=== PATIENT | female | born 1970 | race Caucasian/White ===

== ENCOUNTER 2017-11-20 09:59 | Inpatient (IN) | payer BC ==
[2017-11-20] MEDS ORDERED: RX INFO: IV CONTRAST WAS GIVEN 1 EACH MISC MISCELLANE PRN (10:45)
--- NOTE | 2017-11-20 10:54 | ED ---
General Adult HPI - General Chief complaint: Abdominal Pain Stated complaint: bloated Time Seen by Provider: 11/20/17 10:28 Source: patient, RN notes reviewed Mode of arrival: ambulatory Limitations: no limitations - History of Present Illness Initial comments: 47-year-old female presents to the emergency department with a chief complaint of feeling bloated. She states that about 3 weeks ago she had a menstrual cycle to became bloated and swollen. Patient states that her bleeding has subsided but she continues to bloated she continues to have swelling in her legs. She states that she has been going through menopause associates typical for her to have unusual menstrual cycles but she states she is typically not bloated or feeling like this following. She states that she went to urgent care and was sent here due to their concern for deeper worry. Patient denies any nausea vomiting any high fevers. She denies any changes in urination. She denies any other symptoms at this time. Patient denies any recent fever, chills , shortness of breath, chest pain, back pain, nausea vomiting, numbness or tingling, dysuria or hematuria, constipation or diarrhea, headaches or visual changes, or any other current symptoms. - Related Data Home Medications Medication Instructions Recorded Confirmed No Known Home Medications [No 11/20/17 11/20/17 Known Home Medications] Allergies Allergy/AdvReac Type Severity Reaction Status Date / Time No Known Allergies Allergy Verified 11/20/17 10:23 Review of Systems ROS Statement: Those systems with pertinent positive or pertinent negative responses have been documented in the HPI. ROS Other: All systems not noted in ROS Statement are negative. Past Medical History Past Medical History: No Reported History History of Any Multi-Drug Resistant Organisms: None Reported Past Surgical History: Section Additional Past Surgical History / Comment(s): gastric bypass in 2002 Past Psychological History: No Psychological Hx Reported Smoking Status: Current every day smoker Past Alcohol Use History: Daily Past Drug Use History: None Reported General Exam - General Exam Comments Initial Comments: General: The patient is awake and alert, in no distress, and does not appear acutely ill. Eye: Pupils are equal, round and reactive to light, extra-ocular movements are intact; there is normal conjunctiva bilaterally. No signs of icterus. Ears, nose, mouth and throat: There are moist mucous membranes. Neck: The neck is supple, there is no tenderness. Cardiovascular: There is a regular rate and rhythm. No murmur, rub or gallop is appreciated. Respiratory: Lungs are clear to auscultation, respirations are non-labored, breath sounds are equal. No wheezes, stridor, rales, or rhonchi. Gastrointestinal: Soft, non-distended, non-tender abdomen without masses or organomegaly noted. There is no rebound or guarding present. No CVA tenderness. Bowel sounds are unremarkable. Back: There is no tenderness to palpation in the midline. There is no obvious deformity. No rashes noted. Musculoskeletal: Normal ROM, no tenderness, bilateral pedal edema There is no calf tenderness or swelling. Sensation intact. Pulses equal bilaterally 2+. Neurological: CN II-XII intact, There are no obvious motor or sensory deficits. Coordination appears grossly intact. Speech is normal. Skin: Skin is warm and dry and no rashes or lesions are noted. Psychiatric: Cooperative, appropriate mood & affect, normal judgment. Limitations: no limitations Course Vital Signs 11/20/17 11/20/17 11/20/17 10:06 12:08 14:46 Temperature 98.4 F Pulse Rate 95 91 88 Respiratory 20 18 16 Rate Blood Pressure 143/75 128/70 146/75 O2 Sat by Pulse 100 96 100 Oximetry Medical Decision Making - Medical Decision Making 47-year-old female presents for abdominal bloating and lower extremity swelling. At this time patient's lab work is been reviewed. At this time CAT scan and ultrasound have been reviewed as well. Patient does have this pedal edema had exostosis ascites noted. She does have some laboratory abnormalities as well. Due to her results and laboratories with the patient for continued care and testing. Patient is in agreement this plan all questions have been answered. Patient will be admitted at this time. - Lab Data Result diagrams: 11/20/17 11:10 11/20/17 11:10 Lab Results 11/20/17 11/20/17 11/20/17 Range/Units 11:10 11:10 11:10 WBC 14.8 H (3.8-10.6) k/uL RBC 4.21 (3.80-5.40) m/uL Hgb 12.9 (11.4-16.0) gm/dL Hct 40.2 (34.0-46.0) % MCV 95.5 (80.0-100.0) fL MCH 30.8 (25.0-35.0) pg MCHC 32.2 (31.0-37.0) g/dL RDW 17.0 H (11.5-15.5) % Plt Count 430 (150-450) k/uL Neutrophils % 83 % Lymphocytes % 10 % Monocytes % 5 % Eosinophils % 1 % Basophils % 0 % Neutrophils # 12.3 H (1.3-7.7) k/uL Lymphocytes # 1.5 (1.0-4.8) k/uL Monocytes # 0.7 (0-1.0) k/uL Eosinophils # 0.1 (0-0.7) k/uL Basophils # 0.0 (0-0.2) k/uL Anisocytosis Slight PT (9.0-12.0) sec INR (<1.2) APTT (22.0-30.0) sec Sodium 132 L (137-145) mmol/L Potassium 5.3 H (3.5-5.1) mmol/L Chloride 99 (98-107) mmol/L Carbon Dioxide 24 (22-30) mmol/L Anion Gap 9 mmol/L BUN 4 L (7-17) mg/dL Creatinine 0.43 L (0.52-1.04) mg/dL Est GFR (MDRD) Af Amer >60 (>60 ml/min/1.73 sqM) Est GFR (MDRD) Non-Af >60 (>60 ml/min/1.73 sqM) Glucose 122 H (74-99) mg/dL Calcium 8.6 (8.4-10.2) mg/dL Total Bilirubin 1.2 (0.2-1.3) mg/dL AST 223 H (14-36) U/L ALT 60 H (9-52) U/L Alkaline Phosphatase 263 H (38-126) U/L NT-Pro-B Natriuret Pep pg/mL Total Protein 6.5 (6.3-8.2) g/dL Albumin 3.1 L (3.5-5.0) g/dL Amylase 45 (30-110) U/L Lipase 159 (23-300) U/L TSH 9.770 H (0.465-4.680) mIU/L Free T4 1.43 (0.78-2.19) ng/dL Urine Color Urine Appearance (Clear) Urine pH (5.0-8.0) Ur Specific [place] (1.001-1.035) Urine Protein (Negative) Urine Glucose (UA) (Negative) Urine Ketones (Negative) Urine Blood (Negative) Urine Nitrite (Negative) Urine Bilirubin (Negative) Urine Urobilinogen (<2.0) mg/dL Ur Leukocyte Esterase (Negative) Urine RBC (0-5) /hpf Urine WBC (0-5) /hpf Ur Squamous Epith Cells (0-4) /hpf Urine Bacteria (None) /hpf Hyaline Casts (0-2) /lpf Urine Mucus (None) /hpf Blood Type A Negative Blood Type Recheck A Neg Antibody Screen NEGATIVE Spec Expiration Date 11/23/2017230911/20/17 11/20/17 11/20/17 Range/Units 11:10 11:10 11:10 WBC (3.8-10.6) k/uL RBC (3.80-5.40) m/uL Hgb (11.4-16.0) gm/dL Hct (34.0-46.0) % MCV (80.0-100.0) fL MCH (25.0-35.0) pg MCHC (31.0-37.0) g/dL RDW (11.5-15.5) % Plt Count (150-450) k/uL Neutrophils % % Lymphocytes % % Monocytes % % Eosinophils % % Basophils % % Neutrophils # (1.3-7.7) k/uL Lymphocytes # (1.0-4.8) k/uL Monocytes # (0-1.0) k/uL Eosinophils # (0-0.7) k/uL Basophils # (0-0.2) k/uL Anisocytosis PT 12.7 H (9.0-12.0) sec INR 1.3 H (<1.2) APTT 23.3 (22.0-30.0) sec Sodium (137-145) mmol/L Potassium (3.5-5.1) mmol/L Chloride (98-107) mmol/L Carbon Dioxide (22-30) mmol/L Anion Gap mmol/L BUN (7-17) mg/dL Creatinine (0.52-1.04) mg/dL Est GFR (MDRD) Af Amer (>60 ml/min/1.73 sqM) Est GFR (MDRD) Non-Af (>60 ml/min/1.73 sqM) Glucose (74-99) mg/dL Calcium (8.4-10.2) mg/dL Total Bilirubin (0.2-1.3) mg/dL AST (14-36) U/L ALT (9-52) U/L Alkaline Phosphatase (38-126) U/L NT-Pro-B Natriuret Pep 131 pg/mL Total Protein (6.3-8.2) g/dL Albumin (3.5-5.0) g/dL Amylase (30-110) U/L Lipase (23-300) U/L TSH (0.465-4.680) mIU/L Free T4 (0.78-2.19) ng/dL Urine Color Light Brown Urine Appearance Cloudy H (Clear) Urine pH 7.0 (5.0-8.0) Ur Specific [place] 1.019 (1.001-1.035) Urine Protein 1+ H (Negative) Urine Glucose (UA) Negative (Negative) Urine Ketones Negative (Negative) Urine Blood Negative (Negative) Urine Nitrite Negative (Negative) Urine Bilirubin 1+ H (Negative) Urine Urobilinogen 4.0 (<2.0) mg/dL Ur Leukocyte Esterase Trace H (Negative) Urine RBC 1 (0-5) /hpf Urine WBC 3 (0-5) /hpf Ur Squamous Epith Cells 3 (0-4) /hpf Urine Bacteria Rare H (None) /hpf Hyaline Casts 19 H (0-2) /lpf Urine Mucus Occasional H (None) /hpf Blood Type Blood Type Recheck Antibody Screen Spec Expiration Date - Radiology Data Radiology results: report reviewed, image reviewed Disposition Clinical Impression: Leukocytosis, Hyponatremia, Hyperkalemia, Elevated TSH, Ascites, Cholelithiasis , Hepatic steatosis, Pedal edema Disposition: ADMITTED IP TO THIS [facility] Condition: Stable Referrals: None,Stated [Primary Care Provider] - 1-2 days Decision Date: 11/20/17 Decision Time: 15:20
[2017-11-20 11:46] LABS: Anisocytosis Slight; Basophils % (A) 0 %; Eosinophils # (A) 0.1 k/uL (0-0.7); Eosinophils % (A) 1 %; HCT 40.2 % (34.0-46.0); HGB 12.9 gm/dL (11.4-16.0); Lymphocytes # (A) 1.5 k/uL (1.0-4.8); Lymphocytes % (A) 10 %; MCH 30.8 pg (25.0-35.0); MCHC 32.2 g/dL (31.0-37.0); MCV 95.5 fL (80.0-100.0); Mean Platelet Volume 7.7; Monocytes # (A) 0.7 k/uL (0-1.0); Monocytes % (A) 5 %; Neutrophils # (A) 12.3 k/uL (1.3-7.7); Neutrophils % (A) 83 %; Platelet Count 430 k/uL (150-450); RBC 4.21 m/uL (3.80-5.40); WBC 14.8 k/uL (3.8-10.6)
[2017-11-20 11:52] LABS: ALT 60 U/L (9-52); AST 223 U/L (14-36); Albumin 3.1 g/dL (3.5-5.0); Alkaline Phosphatase 263 U/L (38-126); Amylase 45 U/L (30-110); Anion Gap 9 mmol/L; Blood Urea Nitrogen 4 mg/dL (7-17); Calcium 8.6 mg/dL (8.4-10.2); Carbon Dioxide 24 mmol/L (22-30); Chloride 99 mmol/L (98-107); Glucose 122 mg/dL (74-99); Lipase 159 U/L (23-300); Potassium 5.3 mmol/L (3.5-5.1); Sodium 132 mmol/L (137-145); Total Bilirubin 1.2 mg/dL (0.2-1.3); Total Protein 6.5 g/dL (6.3-8.2)
[2017-11-20 11:57] LABS: INR 1.3 (<1.2); Partial Thromboplastin Time 23.3 sec (22.0-30.0); Prothrombin Time 12.7 sec (9.0-12.0)
[2017-11-20 12:00] LABS: Appearance,Urine Cloudy (Clear); Bacteria,Urine Rare /hpf; Bilirubin,Urine 1+ (Negative); Blood,Urine Negative (Negative); Color,Urine Light Brown; Glucose,Urine (UA) Negative (Negative); Hyaline Casts,Urine 19 /lpf (0-2); Ketones,Urine Negative (Negative); Leukocyte Esterase,Urine Trace (Negative); Mucus,Urine Occasional /hpf; Protein,Urine 1+ (Negative); RBC,Urine 1 /hpf (0-5); Specific Gravity,Urine 1.019 (1.001-1.035); Squamous Epithelial Cell,Urine 3 /hpf (0-4); WBC,Urine 3 /hpf (0-5)
--- NOTE | 2017-11-20 12:16 | CT ---
EXAMINATION TYPE: CT abdomen pelvis w con DATE OF EXAM: 11/20/2017 HISTORY: Bloating, pelvic pressure CT DLP: 3617mGycm Automated Exposure Control for Dose Reduction was Utilized. CONTRAST: CT scan of the abdomen and pelvis is performed with IV Contrast, patient injected with 100 mL of Omni paque 300. COMPARISON: None. FINDINGS: LUNG BASES: No significant abnormality is appreciated. LIVER/GB: Hepatic parenchyma is diffusely hypoattenuated, most commonly seen in hepatic steatosis. Th is finding limits evaluation for hepatic masses. No gross evidence of hepatic mass is seen. No intrah epatic biliary ductal dilatation. Gallstones are seen within the gallbladder body on series 3 image 4 3 and series 5 image 30. The gallbladder is contracted. PANCREAS: No significant abnormality is seen. SPLEEN: No splenomegaly. ADRENALS: No nodularity or thickening. 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 Kidneys enhance symmetrically. BOWEL: There has been a partial gastrectomy with atrophy of the [place] gastric rugal folds. No eviden ce of bowel obstruction. No periappendiceal fat stranding. Scattered colonic diverticula are seen wit hout pericolonic fat stranding. Evaluation of the ascending colon is somewhat limited given adjacent ascites. UTERUS/ADNEXA: No gross abnormality seen. LYMPH NODES: No greater than 1cm abdominal or pelvic lymph nodes are appreciated. OSSEOUS STRUCTURES: Mild multilevel degenerative changes of the spine and moderate degenerative zaidi es of the femoral acetabular joints are noted. OTHER: There is a small amount of abdominal pelvic ascites, predominating around the liver margin. In tra-abdominal fat filled hernia has a neck measuring 4.1 cm and is supraumbilical. Periumbilical elisha ia is also seen that is fat filled. Mild anasarca is also noted. IMPRESSION: 1. No evidence of bowel obstruction. Mild abdominal pelvic ascites, predominantly around the liver. 2. Given the patient's history of postmenopausal bleeding gynecologic workup is recommended. 3. Hepatic steatosis appearing at least moderate in degree and cholelithiasis.
--- NOTE | 2017-11-20 12:40 | XR ---
EXAMINATION TYPE: XR chest 2V DATE OF EXAM: 11/20/2017 COMPARISON: NONE HISTORY: Abdominal and chest pain TECHNIQUE: Frontal and lateral views of the chest are obtained. FINDINGS: Eventration of the right hemidiaphragm is incidentally noted. There is no focal air space o pacity, pleural effusion, or pneumothorax seen. The cardiac silhouette size is within normal limits. The osseous structures are intact. Mild multilevel degenerative changes of the thoracic spine are seen. IMPRESSION: No acute cardiopulmonary process.
[2017-11-20 12:59] LABS: T4, Free (Free Thyroxine) 1.43 ng/dL (0.78-2.19)
--- NOTE | 2017-11-20 14:46 | US ---
EXAMINATION TYPE: US gallbladder DATE OF EXAM: 11/20/2017 COMPARISON: CT abdomen and pelvis earlier today CLINICAL HISTORY: Pain. Bloating. Follow up CT. EXAM MEASUREMENTS: Liver Length: 21.7 cm Gallbladder Wall: 0.3 cm CBD: 0.6 cm CHD: 0.4 cm Right Kidney: 10.4 x 6.3 x 4.3 cm Pancreas: Tail obscured by overlying bowel gas. Limited visualization. Appears echogenic. Liver: Appears enlarged and heterogenous. No focal masses or lesions seen. Gallbladder: Two echogenic non-shadowing lesions: 0.4 x 0.4 cm and 0.3 x 0.4 cm. Limited visualiza tion due to bowel gas and body habitus. Evidence for sonographic Cao's sign: neg CBD: wnl exam noted suboptimal secondary to patient's large body habitus CHD: wnl Right Kidney: Suboptimal visualization due to overlying bowel gas. No prominent masses or lesions se en as visualized. Exam noted suboptimal secondary to patient's large body habitus and overlying bowel gas. Pancreas is suboptimally evaluated on images saved but appeared within normal limits on recent CT. Visualized mc er is heterogeneously hyperechoic which correlates with diffuse fatty infiltration on CT. Adjacent as cites is redemonstrated. 2 tiny nonshadowing hyperechoic nonmobile foci favor tiny polyps. No shadowi ng mobile gallstones are seen. Limited images right kidney show no gross hydronephrosis. IMPRESSION: Marked fatty infiltration of liver with surrounding ascites redemonstrated. No shadowing mobile gallstones or ultrasound evidence for acute cholecystitis.
[2017-11-20] MEDS ORDERED: IBUPROFEN 400 MG TAB PO PRN (15:20)
[2017-11-20] MEDS ORDERED: NALOXONE 0.4 MG/ML 1 ML VIAL IV PRN (15:20)
[2017-11-20] MEDS ORDERED: ONDANSETRON 4 MG/2 ML VIAL IVP PRN (15:20)
[2017-11-20] MEDS ORDERED: ACETAMINOPHEN TAB 325 MG TAB PO PRN (15:20)
[2017-11-20] MEDS ORDERED: SODIUM CHLORIDE 0.9% 1,000 ML IV SCH (16:00)
[2017-11-20 16:52] VITALS: BMI 46.0
[2017-11-20 20:16] LABS: Hepatitis B Core IgM Non-Reactive (Non-Reactive)
[2017-11-20] MEDS: HEPARIN SODIUM,PORCINE 5,000 UNIT/ML 1 ML VIAL SQ SCH (20:17)
--- NOTE | 2017-11-20 20:24 | US ---
EXAMINATION TYPE: US abdomen limited DATE OF EXAM: 11/20/2017 COMPARISON: NONE CLINICAL HISTORY: IRREGULAR MENSES. Ascites Mild to moderate amount of ascites visualized. Exam is limited 4 quadrants for ascites evaluation. IMPRESSION: 1. Ascites present predominantly on the right side.
--- NOTE | 2017-11-20 20:40 | US ---
EXAMINATION TYPE: US transvaginal DATE OF EXAM: 11/20/2017 COMPARISON: NONE CLINICAL HISTORY: IRREGULAR MENSES. Pelvic main. Exam limitations due to fluid and overlying bowel ga s. TECHNIQUE: Transvaginal (TV). EXAM MEASUREMENTS: Uterus: 7.3 x 3.6 x 3.0 cm Endometrial Stripe: 0.3 cm 1. Uterus: Anteverted Limited due to free fluid. 2. Endometrium: Limited due to shadowing. 3. Right Ovary: Obscured by overlying bowel gas 4. Left Ovary: Obscured by overlying bowel gas 5. Bilateral Adnexa: appears wnl 6. Posterior cul-de-sac: Free fluid seen. Free fluid seen in cul-de-sac. IMPRESSION: 1. Fairly large amount of free fluid within the pelvis. 2. Nonvisualization of the ovaries.
--- NOTE | 2017-11-21 00:03 | P.HPIM ---
History of Present Illness H&P Date: 11/20/17 Chief Complaint: Abdominal distention Patient is a 47-year-old female with a history of alcohol use an daily basis presents to the emergency department with a chief complaint of feeling bloated. She states that about 3 weeks ago she had a menstrual cycle since then she has abdominal bloated and swollen and leg swelling. Patient states that her bleeding has subsided but she continues to bloated she continues to have swelling in her legs. She states that she has been going through menopause associates typical for her to have unusual menstrual cycles but she states she is typically not bloated or feeling like this following. She states that she went to urgent care and was sent here due to their concern for deeper worry. Patient denies any nausea vomiting any high fevers. She denies any changes in urination. She denies any other symptoms at this time. Patient denies any recent fever, chills, shortness of breath, chest pain, back pain, nausea vomiting, numbness or tingling, dysuria or hematuria, constipation or diarrhea, headaches or visual changes, or any other current symptoms. CT of the abdomen showed no bowel obstruction. Mild pelvic ascites, predominantly around the liver. Hepatic steatosis and gallstones Ultrasound abdomen showed ascites mainly right side Chest x-ray showed no acute cardio pulmonary process Transvaginal ultrasound was ordered. SCOREBOARD OPERATOR was consulted. AST 223 ALTs 60 TSH 9.77 free T4 1.4, bilirubin 1.2 Patient is a poor historian and is not willing to provide good history. Review of Systems Constitutional: Patient denies any fever or chills . No generalized weakness or weight loss. Abdomen: No nausea vomiting or abdominal pain. Abdominal distention and leg swelling Cardiovascular: Patient denies any chest pain or short of breath no palpitations. Respiratory: patient denied any cough is from production. No shortness of breath Neurologic: Patient denied any numbness or tingling headache. Musculoskeletal: Patient denies any complaints of joint swelling or deformity. Skin: Negative Psychiatric: Negative Endocrine: No heat or cold intolerance. No recent weight gain. Genitourinary: No dysuria or hematuria. All other 14 point ROS negative except the above Past Medical History Past Medical History: No Reported History History of Any Multi-Drug Resistant Organisms: None Reported Past Surgical History: Section Additional Past Surgical History / Comment(s): gastric bypass in 2002 Additional Past Anesthesia/Blood Transfusion Reaction / Comment(s): never had blood transfusion Past Psychological History: No Psychological Hx Reported Smoking Status: Current every day smoker Past Alcohol Use History: Daily Past Drug Use History: None Reported - Past Family History Mother History Unknown: Yes Family Medical History: Congestive Heart Failure (CHF), COPD Father History Unknown: Yes Family Medical History: Diabetes Mellitus Medications and Allergies Home Medications Medication Instructions Recorded Confirmed Type No Known Home Medications [No 11/20/17 11/20/17 History Known Home Medications] Allergies Allergy/AdvReac Type Severity Reaction Status Date / Time No Known Allergies Allergy Verified 11/20/17 10:23 Physical Exam Vitals: Vital Signs Temp Pulse Pulse Resp BP BP Pulse Ox 11/20/17 16:53 99.2 F 93 20 138/72 96 11/20/17 14:46 88 16 146/75 100 11/20/17 12:08 91 18 128/70 96 11/20/17 10:06 98.4 F 95 20 143/75 100 Intake and Output 11/20/17 11/20/17 11/20/17 06:59 14:59 22:59 Other: Weight 136.985 kg 137.4 kg Patient Weight 11/21/17 06:59 Weight 137.4 kg PHYSICAL EXAMINATION: Patient is lying in the bed comfortably, no acute distress, awake alert and oriented. Morbid obesity.. HEENT: Normocephalic. Neck is supple. Pupils reactive. Nostrils clear. Oral cavity is moist. Ears reveal no drainage. Neck reveals no JVD, carotid bruits, or thyromegaly. CHEST EXAMINATION: Trachea is central. Symmetrical expansion. Bibasilar diminished breath sounds CARDIAC: Normal S1, S2 with no gallops. No murmurs ABDOMEN: Soft. Bowel sounds normal. Distended. No fluid thrill noted .No organomegaly. No abdominal bruits. Extremities: 2+ bilateral pedal pitting edema. No clubbing or cyanosis Neurologically awake, alert, oriented x3 with well-coordinated movements. No focal deficits noted Skin: No rash or skin lesions. Psychiatric: Cooperative. Nonsuicidal Musculoskeletal: No joint swelling or deformity. Normal range of motion. Results CBC & Chem 7: 11/20/17 11:10 11/20/17 11:10 Labs: Abnormal Lab Results - Last 24 Hours (Table) 11/20/17 11/20/17 11/20/17 Range/Units 11:10 11:10 11:10 WBC 14.8 H (3.8-10.6) k/uL RDW 17.0 H (11.5-15.5) % Neutrophils # 12.3 H (1.3-7.7) k/uL PT 12.7 H (9.0-12.0) sec INR 1.3 H (<1.2) Sodium 132 L (137-145) mmol/L Potassium 5.3 H (3.5-5.1) mmol/L BUN 4 L (7-17) mg/dL Creatinine 0.43 L (0.52-1.04) mg/dL Glucose 122 H (74-99) mg/dL AST 223 H (14-36) U/L ALT 60 H (9-52) U/L Alkaline Phosphatase 263 H (38-126) U/L Albumin 3.1 L (3.5-5.0) g/dL TSH 9.770 H (0.465-4.680) mIU/L Urine Appearance (Clear) Urine Protein (Negative) Urine Bilirubin (Negative) Ur Leukocyte Esterase (Negative) Urine Bacteria (None) /hpf Hyaline Casts (0-2) /lpf Urine Mucus (None) /hpf 11/20/17 Range/Units 11:10 WBC (3.8-10.6) k/uL RDW (11.5-15.5) % Neutrophils # (1.3-7.7) k/uL PT (9.0-12.0) sec INR (<1.2) Sodium (137-145) mmol/L Potassium (3.5-5.1) mmol/L BUN (7-17) mg/dL Creatinine (0.52-1.04) mg/dL Glucose (74-99) mg/dL AST (14-36) U/L ALT (9-52) U/L Alkaline Phosphatase (38-126) U/L Albumin (3.5-5.0) g/dL TSH (0.465-4.680) mIU/L Urine Appearance Cloudy H (Clear) Urine Protein 1+ H (Negative) Urine Bilirubin 1+ H (Negative) Ur Leukocyte Esterase Trace H (Negative) Urine Bacteria Rare H (None) /hpf Hyaline Casts 19 H (0-2) /lpf Urine Mucus Occasional H (None) /hpf Microbiology - Last 24 Hours (Table) 11/20/17 11:10 Urine Culture - Preliminary Urine,Voided Thrombosis Risk Factor Assmnt - DVT/VTE Prophylaxis DVT/VTE Prophylaxis: Pharmacologic Prophylaxis ordered - Choose All That Apply Each Factor Represents 1 point: Age 41-60 years, Obesity (BMI >25), Swollen legs (current), Varicose veins Other Risk Factors: No Other congenital or acquired thrombophilia - If yes, enter type in comment: No Thrombosis Risk Factor Assessment Total Risk Factor Score: 4 Thrombosis Risk Factor Assessment Level: Moderate Risk Assessment and Plan Assessment: Abdominal distention with ascites Irregular menstrual bleed. Alcohol abuse on daily basis Hepatic steatosis due to alcohol abuse Mild hyperkalemia Hypovolemic hyponatremia Elevated TSH 9.7 but free T4 are within normal limits Elevated AST and ALTs and alk phos with possible alcoholic hepatitis Mild coagulopathy due to alcohol abuse INR 1.3 Morbid obesity with BMI 46.1 Mild leukocytosis 14.9 with no signs of infection DVT prophylaxis Plan: Patient was given gentle hydration. Ultrasound of abdomen and transvaginal ultrasound was ordered. We will follow up CBC and CMP tomorrow. OBGYN was consulted. Patient will be monitored for alcohol withdrawal symptoms. Counseled for alcohol abuse. Further recommendations based on the clinical course. Time with Patient: Greater than 30
[2017-11-21 06:47] LABS: Anisocytosis Slight; Basophils # (A) 0.1 k/uL (0-0.2); Basophils % (A) 1 %; Eosinophils # (A) 0.2 k/uL (0-0.7); Eosinophils % (A) 2 %; HCT 35.5 % (34.0-46.0); HGB 11.4 gm/dL (11.4-16.0); Lymphocytes # (A) 1.4 k/uL (1.0-4.8); Lymphocytes % (A) 13 %; MCHC 32.1 g/dL (31.0-37.0); MCV 96.5 fL (80.0-100.0); Macrocytosis Slight; Monocytes # (A) 0.5 k/uL (0-1.0); Monocytes % (A) 5 %; Neutrophils # (A) 8.7 k/uL (1.3-7.7); Neutrophils % (A) 79 %; Platelet Count 356 k/uL (150-450); RBC 3.68 m/uL (3.80-5.40); RDW 17.1 % (11.5-15.5)
[2017-11-21 07:09] LABS: ALT 51 U/L (9-52); AST 175 U/L (14-36); Albumin 2.5 g/dL (3.5-5.0); Alkaline Phosphatase 206 U/L (38-126); Anion Gap 7 mmol/L; Blood Urea Nitrogen 4 mg/dL (7-17); Calcium 8.1 mg/dL (8.4-10.2); Carbon Dioxide 27 mmol/L (22-30); Chloride 101 mmol/L (98-107); Glucose 91 mg/dL (74-99); Potassium 4.4 mmol/L (3.5-5.1); Sodium 135 mmol/L (137-145); Total Bilirubin 0.9 mg/dL (0.2-1.3); Total Protein 5.4 g/dL (6.3-8.2)
[2017-11-21] MEDS: HEPARIN SODIUM,PORCINE 5,000 UNIT/ML 1 ML VIAL SQ SCH (08:21)
[2017-11-21] MEDS ORDERED: FUROSEMIDE 10 MG/ML 4 ML VIAL IV SCH (09:00)
--- NOTE | 2017-11-21 11:25 | P.CONS ---
History of Present Illness - Reason for Consult Consult date: 11/21/17 Ascites Requesting physician: Andry Diehl - History of Present Illness 47-year-old female no PCP with a history of morbid obesity BMI 46, status post Willie-en-Y gastric bypass 2002, daily alcohol intake 5-6 glasses of wine for more than 15 years, nicotine cigarette dependency. Patient presented with acute abdominal discomfort and bloatedness/leg edema that started after her menstrual cycle about 3 weeks ago. Leg edema has resolved but her abdominal bloatedness has persisted. She drinks a few glasses of wine prior to admission. Admission INR 1.3. Hemoglobin 12.9. White count 14.8 improved presently 11. Platelets 430. Total bilirubin 1.2. AST 223. ALT 60. Alkaline phosphatase 263. BUN 4. Creatinine 0.4. Hepatitis B surface antigen and core IgM antibody nonreactive. Hepatitis C IgG antibody nonreactive. No history of known liver diseases. No history of hepatitis. No history of autoimmune disorders. No history of intravenous drug abuse. No changes in medications. CT abdomen and pelvis hepatic parenchyma diffusely hypoattenuated mostly commonly seen in hepatic steatosis. No gross evidence of hepatic mass. No intrahepatic biliary ductal dilatation. Cholelithiasis. Gallbladder contracted. No splenomegaly. Evidence of partial gastrectomy no evidence of bowel obstruction. Scattered colonic diverticula. Small amount of abdominal pelvic ascites predominantly around the liver margin. Periumbilical hernia. Ultrasound abdomen ascites present predominately on the right side. Transvaginal ultrasound fairly large amount of free fluid within the pelvis. Nonvisualization of the ovaries. Review of Systems Constitutional: Denies fever, chills, sweats, weight gain, or loss. HEENT: Negative for migraines, blurred vision or loss, earaches, drainage, tinnitus, oral mucosal lesions, dysphagia, or odynophagia. CARDIAC: Negative for chest pain, arrhythmias, or palpitation. RESPIRATORY: Nicotine cigarette dependency. Negative for shortness of breath, hemoptysis, cough, or sputum production. GI: See HPI for pertinent findings. : Negative for hematuria, urgency, frequency, polyuria, or dysuria. GYNc: Denies possibility of . Negative vaginal discharge. MUSCULOSKELETAL: Negative for muscle aches, swelling, arthritis, and arthralgias. NEUROLOGIC: Negative for stroke or TIA. ENDOCRINE: Negative for thyroid problems. SKIN: Negative for rash or itching. PSYCHIATRIC: Negative history for depression and anxiety Past Medical History Past Medical History: No Reported History History of Any Multi-Drug Resistant Organisms: None Reported Past Surgical History: Section Additional Past Surgical History / Comment(s): gastric bypass in 2002 Additional Past Anesthesia/Blood Transfusion Reaction / Comm: never had blood transfusion Past Psychological History: No Psychological Hx Reported Smoking Status: Current every day smoker Past Alcohol Use History: Daily Past Drug Use History: None Reported - Past Family History Mother History Unknown: Yes Family Medical History: Congestive Heart Failure (CHF), COPD Father History Unknown: Yes Family Medical History: Diabetes Mellitus Medications and Allergies Home Medications Medication Instructions Recorded Confirmed Type No Known Home Medications [No 11/20/17 11/20/17 History Known Home Medications] Allergies Allergy/AdvReac Type Severity Reaction Status Date / Time No Known Allergies Allergy Verified 11/20/17 10:23 Physical Exam Vitals: Vital Signs Temp Pulse Pulse Resp BP BP Pulse Ox 11/21/17 08:04 99.5 F 87 20 124/81 97 11/21/17 02:30 99.0 F 86 18 128/70 98 11/20/17 22:25 99.1 F 11/20/17 20:15 98.1 F 79 22 122/76 98 11/20/17 18:44 99.4 F 11/20/17 16:53 99.2 F 93 20 138/72 96 11/20/17 14:46 88 16 146/75 100 11/20/17 12:08 91 18 128/70 96 Intake and Output 11/20/17 11/21/17 11/21/17 22:59 06:59 14:59 Intake Total 540 200 Output Total 300 1000 Balance 540 -300 -800 Intake: Oral 540 200 Output: Urine 300 1000 Other: Voiding Method Toilet # Voids 1 Weight 137.4 kg 137.2 kg Patient Weight 11/22/17 06:59 Weight 137.2 kg General appearance: The patient is alert, oriented, in no acute distress. HET: Head is normocephalic and atraumatic. Pupils are equal and reactive. Oropharynx is clear without lesions. Neck: Supple without lymphadenopathy. Trachea midline. Heart: S1 S2. Regular rate and rhythm. Lungs: No crackles or wheezes are heard. Abdomen: Soft, mild tenderness to the upper abdomen with some mild bloatedness difficult to ascertain ascites secondary to large abdominal habitus, nondistended with bowel sounds. No peritoneal signs. No palpable organomegaly or masses. Extremities: Normal skin color and turgor. No cyanosis, rash, ulceration, clubbing, or edema. Radial and pedal pulses are 2/4 bilaterally. Neurological: No focal deficits. Strength and sensation are grossly intact. Results CBC & Chem 7: 11/21/17 06:22 11/21/17 06:22 Labs: Abnormal Lab Results - Last 24 Hours (Table) 11/20/17 11/20/17 11/20/17 Range/Units 11:10 11:10 11:10 WBC 14.8 H (3.8-10.6) k/uL RBC (3.80-5.40) m/uL RDW 17.0 H (11.5-15.5) % Neutrophils # 12.3 H (1.3-7.7) k/uL PT 12.7 H (9.0-12.0) sec INR 1.3 H (<1.2) Sodium 132 L (137-145) mmol/L Potassium 5.3 H (3.5-5.1) mmol/L BUN 4 L (7-17) mg/dL Creatinine 0.43 L (0.52-1.04) mg/dL Glucose 122 H (74-99) mg/dL Calcium (8.4-10.2) mg/dL AST 223 H (14-36) U/L ALT 60 H (9-52) U/L Alkaline Phosphatase 263 H (38-126) U/L Total Protein (6.3-8.2) g/dL Albumin 3.1 L (3.5-5.0) g/dL TSH 9.770 H (0.465-4.680) mIU/L Urine Appearance (Clear) Urine Protein (Negative) Urine Bilirubin (Negative) Ur Leukocyte Esterase (Negative) Urine Bacteria (None) /hpf Hyaline Casts (0-2) /lpf Urine Mucus (None) /hpf 11/20/17 11/21/17 11/21/17 Range/Units 11:10 06:22 06:22 WBC 11.0 H (3.8-10.6) k/uL RBC 3.68 L (3.80-5.40) m/uL RDW 17.1 H (11.5-15.5) % Neutrophils # 8.7 H (1.3-7.7) k/uL PT (9.0-12.0) sec INR (<1.2) Sodium 135 L (137-145) mmol/L Potassium (3.5-5.1) mmol/L BUN 4 L (7-17) mg/dL Creatinine 0.48 L (0.52-1.04) mg/dL Glucose (74-99) mg/dL Calcium 8.1 L (8.4-10.2) mg/dL AST 175 H (14-36) U/L ALT (9-52) U/L Alkaline Phosphatase 206 H (38-126) U/L Total Protein 5.4 L (6.3-8.2) g/dL Albumin 2.5 L (3.5-5.0) g/dL TSH (0.465-4.680) mIU/L Urine Appearance Cloudy H (Clear) Urine Protein 1+ H (Negative) Urine Bilirubin 1+ H (Negative) Ur Leukocyte Esterase Trace H (Negative) Urine Bacteria Rare H (None) /hpf Hyaline Casts 19 H (0-2) /lpf Urine Mucus Occasional H (None) /hpf Microbiology - Last 24 Hours (Table) 11/20/17 11:10 Urine Culture - Final Urine,Voided CT scan - abdomen: report reviewed (Dr. Devine) US - abdomen: report reviewed (Dr. Devine) Assessment and Plan (1) Ascites Narrative/Plan: 47-year-old female presents with persistent abdominal discomfort pain with leukocytosis, bloatedness 3 weeks with radiographic imaging reporting new onset of ascites and elevated liver enzymes. Suspect underlying ascites secondary to alcohol liver disease alcohol hepatitis with superimposed hepatic steatosis however underlying chronic liver disease possible underlying gynecological pathology cannot be entirely excluded. Current Visit: Yes Status: Acute Code(s): R18.8 - OTHER ASCITES SNOMED Code(s): 166816330 (2) Abdominal pain Current Visit: Yes Status: Acute Code(s): R10.9 - UNSPECIFIED ABDOMINAL PAIN SNOMED Code(s): 09607489 (3) Cholelithiasis Current Visit: Yes Status: Chronic Code(s): K80.20 - CALCULUS OF GALLBLADDER W/O CHOLECYSTITIS W/O OBSTRUCTION SNOMED Code(s): 687248179 (4) Hepatic steatosis Current Visit: Yes Status: Chronic Code(s): K76.0 - FATTY (CHANGE OF) LIVER , NOT ELSEWHERE CLASSIFIED SNOMED Code(s): 901592391 (5) ETOH abuse Current Visit: Yes Status: Chronic Code(s): F10.10 - ALCOHOL ABUSE, UNCOMPLICATED SNOMED Code(s): 67869984 (6) Morbid obesity with BMI of 45.0-49.9, adult Current Visit: Yes Status: Chronic Code(s): E66.01 - MORBID (SEVERE) OBESITY DUE TO EXCESS CALORIES; Z68.42 - BODY MASS INDEX (BMI) 45.0-49.9, ADULT SNOMED Code(s): 357560367 (7) Coagulopathy Current Visit: Yes Status: Acute Code(s): D68.9 - COAGULATION DEFECT, UNSPECIFIED SNOMED Code(s): 40846900 (8) History of Willie-en-Y gastric bypass Current Visit: Yes Status: Resolved Code(s): Z98.84 - BARIATRIC SURGERY STATUS SNOMED Code(s): 269090388 (9) Alcoholic hepatitis with ascites Current Visit: Yes Status: Acute Code(s): K70.11 - ALCOHOLIC HEPATITIS WITH ASCITES SNOMED Code(s): 892180469 (10) Leukocytosis Narrative/Plan: Suspect secondary to alcohol hepatitis; improved white count 11. Current Visit: Yes Status: Acute Code(s): D72.829 - ELEVATED WHITE BLOOD CELL COUNT, UNSPECIFIED SNOMED Code(s): 253944184 Plan: 1. Alcohol abstinence was strongly advised. 2. Full serologic workup for underlying chronic liver disease. 3. Will discuss case with interventional radiologist review abdominal films to see if patient is a candidate for diagnostic/therapeutic paracentesis if so we' ll send full analysis of ascitic fluid assess for portal hypertension/SBP. 3. Low-salt diet. Receiving diuretics. Gynecology consultation. 4. Return to office 7-10 days for reevaluation. Thank you for this kind referral and the opportunity to participate in the care of your patient. This consultation was discussed with Dr. Devine. The impression and plan of care have been directed as dictated.
[2017-11-21] MEDS ORDERED: THIAMINE 100 MG TAB PO SCH (12:00)
[2017-11-21] MEDS ORDERED: MULTIVITAMINS, THERA 1 EACH TAB PO SCH (12:00)
[2017-11-21 13:10] VITALS: BP 139/75; PULSE 85; RESP 18; TEMP 98.4
--- NOTE | 2017-11-21 15:05 | P.OBCN ---
History of Present Illness Consult date: 11/21/17 Reason for consult: other (irregular menses) Chief complaint: abdominal bloating History of present illness: This is a 47yo female that presented to the ED with c/o increasing abdominal pain, bloating. she admits to drinking 3-4 glasses of wine a night, and has been under alot of stress. she admits this is a coping mechanism to deal witht he stress of life. on admission CT scan,+ ascites. normal pelvic anatomy was visualized and US was limited due to increased amount of free fluid. she notes regular BM that are normal for her, no urinary complaints. menses are irregular and she notes she will skip multiple months at a time. + hot flashes over the last year. "its not my uterus causing the problems" Review of Systems Constitutional: Reports chills, Reports fever Cardiovascular: Denies chest pain Respiratory: Denies cough Gastrointestinal: Denies constipation, Denies diarrhea Genitourinary: Reports hot flashes, Denies stress incontinence, Denies urge incontinence Past Medical History Past Medical History: No Reported History History of Any Multi-Drug Resistant Organisms: None Reported Past Surgical History: Section Additional Past Surgical History / Comment(s): gastric bypass in 2002 Additional Past Anesthesia/Blood Transfusion Reaction / Comm: never had blood transfusion Past Psychological History: No Psychological Hx Reported Smoking Status: Current every day smoker Past Alcohol Use History: Daily Past Drug Use History: None Reported - Past Family History Mother History Unknown: Yes Family Medical History: Congestive Heart Failure (CHF), COPD Father History Unknown: Yes Family Medical History: Diabetes Mellitus Medications and Allergies Home Medications Medication Instructions Recorded Confirmed Type No Known Home Medications [No 11/20/17 11/20/17 History Known Home Medications] Allergies Allergy/AdvReac Type Severity Reaction Status Date / Time No Known Allergies Allergy Verified 11/20/17 10:23 Exam Osteopathic Statement: *. No significant issues noted on an osteopathic structural exam other than those noted in the History and Physical/Consult. - Vital Signs Vital signs: Vital Signs Temp Pulse Resp BP Pulse Ox 11/21/17 12:16 98.4 F 85 18 139/75 95 11/21/17 08:04 99.5 F 87 20 124/81 97 11/21/17 02:30 99.0 F 86 18 128/70 98 11/20/17 22:25 99.1 F 11/20/17 20:15 98.1 F 79 22 122/76 98 11/20/17 18:44 99.4 F 11/20/17 16:53 99.2 F 93 20 138/72 96 Intake and Output 11/20/17 11/21/17 11/21/17 22:59 06:59 14:59 Intake Total 540 1700 Output Total 300 1400 Balance 540 -300 300 Intake: Oral 540 1700 Output: Urine 300 1400 Other: Voiding Method Toilet # Voids 1 Weight 137.4 kg 137.2 kg Patient Weight 11/22/17 06:59 Weight 137.2 kg - OBG Physical Exam Abdomen: diffusely distended, some tenderness to palpation Uterus: declines exam Results Result Diagrams: 11/21/17 06:22 11/21/17 06:22 Abnormal Lab Results - Last 24 Hours (Table) 11/21/17 11/21/17 Range/Units 06:22 06:22 WBC 11.0 H (3.8-10.6) k/uL RBC 3.68 L (3.80-5.40) m/uL RDW 17.1 H (11.5-15.5) % Neutrophils # 8.7 H (1.3-7.7) k/uL Sodium 135 L (137-145) mmol/L BUN 4 L (7-17) mg/dL Creatinine 0.48 L (0.52-1.04) mg/dL Calcium 8.1 L (8.4-10.2) mg/dL AST 175 H (14-36) U/L Alkaline Phosphatase 206 H (38-126) U/L Total Protein 5.4 L (6.3-8.2) g/dL Albumin 2.5 L (3.5-5.0) g/dL Microbiology - Last 24 Hours (Table) 11/20/17 11:10 Urine Culture - Final Urine,Voided Assessment and Plan (1) Irregular menses Narrative/Plan: discussed menstrual irregularities are most likely due to age and perimenopause. she is tearful and frustrated with her dx and states she doesnt understand her follow up instruction in regard to her ascites. I did ask her RN to review hospitalist and gi plans prior to d/c. she is a known pt of Dr Shrestha and will follow up for annual. thank you for the kind consult Current Visit: Yes Status: Acute Code(s): N92.6 - IRREGULAR MENSTRUATION, UNSPECIFIED SNOMED Code(s): 12431303 (2) Abdominal pain Current Visit: Yes Status: Acute Code(s): R10.9 - UNSPECIFIED ABDOMINAL PAIN SNOMED Code(s): 26206225 (3) Ascites Current Visit: Yes Status: Acute Code(s): R18.8 - OTHER ASCITES SNOMED Code(s): 383145388 (4) Leukocytosis Current Visit: Yes Status: Acute Code(s): D72.829 - ELEVATED WHITE BLOOD CELL COUNT, UNSPECIFIED SNOMED Code(s): 760116970 (5) ETOH abuse Current Visit: Yes Status: Chronic Code(s): F10.10 - ALCOHOL ABUSE, UNCOMPLICATED SNOMED Code(s): 04687184
--- NOTE | 2017-11-21 22:46 | P.DS ---
Providers Date of admission: 11/20/17 15:05 Expected date of discharge: 11/21/17 Attending physician: Andry Diehl Consults: 11/20/17 15:21 Consult Physician Routine Consulting Provider: Glen Lux Consult Reason/Comments: vaginal bleeding Do you want consulting provider notified?: Yes 11/20/17 15:22 Consult Physician Routine Consulting Provider: Kishan Devine Consult Reason/Comments: ascites Do you want consulting provider notified?: Yes Primary care physician: Stated None Hospital Course: Discharge diagnosis Abdominal distention with ascites. Not significant enough to be drained. Irregular menstrual bleed. Alcohol abuse on daily basis Hepatic steatosis due to alcohol abuse Mild hyperkalemia Hypovolemic hyponatremia New Mild hypothyroidism with Elevated TSH 9.7 but free T4 are within normal limits Elevated AST and ALTs and alk phos with possible alcoholic hepatitis Mild coagulopathy due to alcohol abuse INR 1.3 Morbid obesity with BMI 46.1 Mild leukocytosis 14.9 with no signs of infection DVT prophylaxis Hospital course Patient is a 47-year-old female with a history of alcohol use an daily basis presents to the emergency department with a chief complaint of feeling bloated. She states that about 3 weeks ago she had a menstrual cycle since then she has abdominal bloated and swollen and leg swelling. Patient states that her bleeding has subsided but she continues to bloated she continues to have swelling in her legs. She states that she has been going through menopause associates typical for her to have unusual menstrual cycles but she states she is typically not bloated or feeling like this following. She states that she went to urgent care and was sent here due to their concern for deeper worry. Patient denies any nausea vomiting any high fevers. She denies any changes in urination. She denies any other symptoms at this time. Patient denies any recent fever, chills, shortness of breath, chest pain, back pain, nausea vomiting, numbness or tingling, dysuria or hematuria, constipation or diarrhea, headaches or visual changes, or any other current symptoms. CT of the abdomen showed no bowel obstruction. Mild pelvic ascites, predominantly around the liver. Hepatic steatosis and gallstones Ultrasound abdomen showed ascites mainly right side Chest x-ray showed no acute cardio pulmonary process Transvaginal ultrasound was ordered. SCRAP SORTER was consulted. AST 223 ALTs 60 TSH 9.77 free T4 1.4, bilirubin 1.2 Patient is a poor historian and is not willing to provide good history. On 11/21/2017 Patient denied any complaints of nausea or vomiting. Leg swelling is much improved today. Otherwise patient had ultrasound of abdomen which did not find any significant ascites to be drained. Liver enzymes are trending down. Improved electrolyte abnormalities. Patient was counseled extensively for alcohol cessation and follow-up with GI clinic as an outpatient. Patient was recommended to follow with primary care physician as well. Otherwise patient wishes to be discharged home today. Patient was strongly instructed not to drink alcohol. Discharge instructions were discussed with the patient in detail and follow-up information was provided to the patient. Patient was started on low-dose levothyroxine and recommended to follow with primary care physician in 4-6 for repeat TSH and free T4 levels. Patient verbalizes the understanding and is stable to be discharged home.. Discharge physical examination Patient is lying in the bed comfortably, no acute distress, awake alert and oriented. Morbid obesity.. HEENT: Normocephalic. Neck is supple. Pupils reactive. Nostrils clear. Oral cavity is moist. Ears reveal no drainage. Neck reveals no JVD, carotid bruits, or thyromegaly. CHEST EXAMINATION: Trachea is central. Symmetrical expansion. Clear to auscultation bilaterally CARDIAC: Normal S1, S2 with no gallops. No murmurs ABDOMEN: Soft. Bowel sounds normal. Distended. No fluid thrill noted .No organomegaly. No abdominal bruits. Extremities: No edema. No clubbing or cyanosis Neurologically awake, alert, oriented x3 with well-coordinated movements. No focal deficits noted Skin: No rash or skin lesions. Psychiatric: Cooperative. Nonsuicidal Musculoskeletal: No joint swelling or deformity. Normal range of motion. Total time taken greater than 35 minutes including 18 minutes for counseling and coordination of care. Patient Condition at Discharge: Stable Plan - Discharge Summary New Discharge Prescriptions: New Multivitamins, Thera [Multivitamin (formulary)] 1 each PO DAILY@1200 #30 tab Thiamine [Vitamin B-1] 100 mg PO DAILY@1200 #30 tab Levothyroxine Sodium [Levoxyl] 25 mcg PO DAILY #30 tab Discharge Medication List Levothyroxine Sodium [Levoxyl] 25 mcg PO DAILY #30 tab 11/21/17 [Rx] Multivitamins, Thera [Multivitamin (formulary)] 1 each PO DAILY@1200 #30 tab 03/05 [Rx] Thiamine [Vitamin B-1] 100 mg PO DAILY@1200 #30 tab 11/21/17 [Rx] Follow up Appointment(s)/Referral(s): Kishan Devine MD [STAFF PHYSICIAN] - 12/11/17 3:15 pm None,Stated [Primary Care Provider] - 1-2 days Activity/Diet/Wound Care/Special Instructions: Low salt Diet, No alcohol use, follow up with heat treater apprentice as scheduled, sooner if problems or concerns. FOLLOW UP WITH A PRIMARY CARE NEXT WEEK FOR EVALUATION OF THYROID AND PHYSICAL FOLLOW UP WITH DR LUX FOR YEARLY PHYSICAL Discharge Disposition: HOME SELF-CARE
[2017-11-22 01:45] LABS: Alpha Fetoprotein, Tumor Mkr 1.6 ng/mL (0.0-7.9)
[2017-11-22 02:04] LABS: Hepatitis A Antibody IgM Non-Reactive (Non-Reactive)
[2017-11-22 11:49] LABS: Ceruloplasmin 32.9 mg/dL (20.0-60.0)
[2017-11-23 12:39] LABS: Albumin 2.11 g/dL (3.80-4.90); Gamma Globulin 1.01 g/dL (0.70-1.50); Protein, Total 5.2 g/dL (6.2-8.2)
== END 2017-11-21 16:07 | disposition home or self-care (01) | DRG 433 ==
LOC: EC 09:59 → 6PED 15:05
PROVIDERS: ADMIT Internal Medicine; ATTEND Internal Medicine
DX: K70.11 Alcoholic hepatitis with ascites (principal); E87.1 Hypo-osmolality and hyponatremia; D68.4 Acquired coagulation factor deficiency; E66.01 Morbid (severe) obesity due to excess calories; E03.9 Hypothyroidism, unspecified; E87.5 Hyperkalemia; F10.10 Alcohol abuse, uncomplicated; F17.200 Nicotine dependence, unspecified, uncomplicated; K42.9 Umbilical hernia without obstruction or gangrene; K57.30 Diverticulosis of large intestine without perforation or abscess without bleeding; K76.0 Fatty (change of) liver, not elsewhere classified; K80.20 Calculus of gallbladder without cholecystitis without obstruction; N92.6 Irregular menstruation, unspecified; N95.1 Menopausal and female climacteric states; Z82.49 Family history of ischemic heart disease and other diseases of the circulatory system; Z82.5 Family history of asthma and other chronic lower respiratory diseases; Z83.3 Family history of diabetes mellitus; Z90.3 Acquired absence of stomach [part of]; Z98.84 Bariatric surgery status; Z71.41 Alcohol abuse counseling and surveillance of alcoholic
CPT/HCPCS: 36415; 71046; 74177; 76705; 76830; 80053; 80074; 81001; 82105; 82150; 82390; 83605; 83690; 83880; 84165; 84439; 84443; 85025; 85610; 85730; 86038; 86709; 86850; 86900; 86901; 87086; 99285

== ENCOUNTER 2017-12-13 11:51 | Day surgery (SDC) | payer BC ==
[2017-12-13 12:34] LABS: INR 1.6 (<1.2); Prothrombin Time 14.8 sec (9.0-12.0)
[2017-12-13 12:35] LABS: Mean Platelet Volume 7.8; Platelet Count 386 k/uL (150-450)
[2017-12-13 12:54] VITALS: TEMP 98
[2017-12-13 13:17] LABS: Albumin 2.8 g/dL (3.5-5.0); Calcium 8.3 mg/dL (8.4-10.2); Total Bilirubin 2.4 mg/dL (0.2-1.3); Total Protein 6.7 g/dL (6.3-8.2)
[2017-12-13 13:21] LABS: Potassium 5.2 mmol/L (3.5-5.1)
[2017-12-13] MEDS: ALBUMIN HUMAN 25% 50 ML in EMPTY BAG 1 BAG IVPB SCH ×2 (15:24→15:37)
[2017-12-13 15:27] VITALS: RESP 18
--- NOTE | 2017-12-13 15:32 | US ---
EXAMINATION TYPE: US paracentesis abd w/image DATE OF EXAM: 12/13/2017 COMPARISON: NONE HISTORY: Ascites. PROCEDURE: Maximal barrier technique was utilized. The skin overlying a suitable pocket of fluid was localized with ultrasound and the overlying skin was prepped and draped. Ultrasound was utilized with sterile technique. Lidocaine was used for local anesthesia and a skin angelo made with a scalpel. Catheter was advanced under direct ultrasound guidance into a suitable pocket of fluid and approximately 8 liters of serous followed by serous sanguinous fluid were removed. Catheter was withdrawn and hemostasis ac hieved. There is no immediate complication; the patient is discharged in stable condition. IMPRESSION: STATUS POST ULTRASOUND GUIDED PARACENTESIS FOR PALLIATION OF ASCITES. THIS PROCEDURE WA S PERFORMED BY THE UNDERSIGNED. Specimen sent for laboratory analysis
[2017-12-13 16:25] VITALS: BP 122/70; PULSE 80
[2017-12-13 18:02] LABS: Appearance,BF Hazy; Color,BF Yellow; Nucleated Cells, Body Fluid 45 /uL; RBC, Body Fluid 155 /uL
[2017-12-13 18:04] LABS: Mononuclear WBC,Body Fluid 85 %; Polynuclear WBC,Body Fluid 15 %; Total Cells Counted,Body Fluid 100
== END 2017-12-13 16:30 | disposition home or self-care (01) ==
LOC: RADPROMAIN 11:51
DX: K70.31 Alcoholic cirrhosis of liver with ascites (principal)
CPT/HCPCS: 88108; 88305; 80053; 89050; 85049; 85610; 87070; 87205; 82945; 96365; 36415; 49083; P9047; 82042

== ENCOUNTER 2017-12-26 12:27 | Day surgery (SDC) | payer BC ==
[2017-12-26 13:04] LABS: Mean Platelet Volume 7.6; Platelet Count 373 k/uL (150-450)
[2017-12-26 13:08] VITALS: RESP 18; TEMP 98.2
[2017-12-26 13:10] LABS: INR 1.5 (<1.2); Prothrombin Time 13.7 sec (9.0-12.0)
[2017-12-26] MEDS: ALBUMIN HUMAN 25% 50 ML in EMPTY BAG 1 BAG IVPB SCH ×3 (14:18→15:08)
[2017-12-26 15:22] VITALS: BP 116/56; PULSE 86
--- NOTE | 2017-12-26 16:34 | US ---
EXAMINATION TYPE: US paracentesis abd w/image DATE OF EXAM: 12/26/2017 COMPARISON: NONE HISTORY: Ascites. PROCEDURE: Maximal barrier technique was utilized. The skin overlying a suitable pocket of fluid was localized with ultrasound and the overlying skin was prepped and draped. Ultrasound was utilized with sterile technique. Lidocaine was used for local anesthesia and a skin angelo made with a scalpel. Catheter was advanced under direct ultrasound guidance into a suitable pocket of fluid and approximately 8.5 liter s of serous fluid were removed. Catheter was withdrawn and hemostasis achieved. There is no immedia te complication; the patient is discharged in stable condition. IMPRESSION: STATUS POST ULTRASOUND GUIDED PARACENTESIS FOR PALLIATION OF ASCITES. THIS PROCEDURE WA S PERFORMED BY THE UNDERSIGNED.
== END 2017-12-26 15:52 | disposition home or self-care (01) ==
LOC: RADPROMAIN 12:27
DX: K70.31 Alcoholic cirrhosis of liver with ascites (principal)
CPT/HCPCS: 36415; 49083; 82565; 85049; 85610

== ENCOUNTER → 2018-01-03 | Outpatient (CLI) | payer BC ==
[2018-01-03 13:33] LABS: Albumin 2.7 g/dL (3.5-5.0); Calcium 8.6 mg/dL (8.4-10.2); Potassium 5.1 mmol/L (3.5-5.1); Total Bilirubin 2.2 mg/dL (0.2-1.3); Total Protein 6.3 g/dL (6.3-8.2)
== END | disposition home or self-care (01) ==
LOC: LABWHC1 12:37
DX: K70.31 Alcoholic cirrhosis of liver with ascites (principal)
CPT/HCPCS: 36415; 80053

== ENCOUNTER 2018-01-10 11:59 | Day surgery (SDC) | payer BC ==
[2018-01-10 12:23] LABS: Mean Platelet Volume 6.6; Platelet Count 344 k/uL (150-450)
[2018-01-10 12:30] VITALS: RESP 16; TEMP 98.1
[2018-01-10 12:34] LABS: INR 1.4 (<1.2); Prothrombin Time 13.4 sec (9.0-12.0)
[2018-01-10 14:32] VITALS: BP 91/44; PULSE 93
--- NOTE | 2018-01-10 14:43 | US ---
EXAMINATION TYPE: US paracentesis abd w/image DATE OF EXAM: 01/10/2018 COMPARISON: NONE HISTORY: Ascites. PROCEDURE: Maximal barrier technique was utilized. The skin overlying a suitable pocket of fluid was localized with ultrasound and the overlying skin was prepped and draped. Ultrasound was utilized with sterile technique. Lidocaine was used for local anesthesia and a skin angelo made with a scalpel. Catheter was advanced under direct ultrasound guidance into a suitable pocket of fluid and approximately 8.8 liter s of serous fluid were removed. Catheter was withdrawn and hemostasis achieved. There is no immedia te complication; the patient is discharged in stable condition. IMPRESSION: STATUS POST ULTRASOUND GUIDED PARACENTESIS FOR PALLIATION OF ASCITES. THIS PROCEDURE WA S PERFORMED BY THE UNDERSIGNED.
[2018-01-10] MEDS: ALBUMIN HUMAN 25% 50 ML in EMPTY BAG 1 BAG IVPB SCH ×4 (14:53→15:21)
== END 2018-01-10 15:40 | disposition home or self-care (01) ==
LOC: RADPROMAIN 11:59
DX: R18.8 Other ascites (principal)
CPT/HCPCS: 85049; 85610; 85730; 96365; 49083; P9047

== ENCOUNTER 2018-01-24 08:06 | Day surgery (SDC) | payer BC ==
[2018-01-24 08:33] LABS: Mean Platelet Volume 7.1; Platelet Count 336 k/uL (150-450)
[2018-01-24 08:34] VITALS: TEMP 98.1
[2018-01-24 08:46] LABS: INR 1.5 (<1.2); Prothrombin Time 13.6 sec (9.0-12.0)
[2018-01-24] MEDS ORDERED: LIDOCAINE (PF) 10 MG/ML 5ML AMP SQ STA (09:26)
[2018-01-24] MEDS: ALBUMIN HUMAN 25% 50 ML in EMPTY BAG 1 BAG IVPB SCH ×4 (09:40→10:57)
[2018-01-24 10:01] VITALS: RESP 14
[2018-01-24 10:32] VITALS: BP 102/52; PULSE 87
--- NOTE | 2018-01-24 15:31 | US ---
Therapeutic paracentesis. DATE OF EXAM: 01/24/2018 CLINICAL HISTORY: Ascites The procedure was discussed with the patient. The risks, complications, benefits, and alternatives we re discussed and any questions were answered. Informed consent was obtained. The patient was placed s upine on the ultrasound table and prepped and draped in the usual sterile fashion. All elements of maximal barrier technique were utilized. Under ultrasound guidance, access into the left lower quadrant was obtained, via the paracentesis catheter system and direct ultrasound guidance . Approximately 7.4 liters of straw-colored fluid was removed. The patient was stable throughout the pr ocedure and remained stable upon discharge from Department of Radiology. IMPRESSION: Successful therapeutic paracentesis under ultrasound guidance.
== END 2018-01-24 10:50 | disposition home or self-care (01) ==
LOC: RADPROMAIN 08:06
DX: R18.8 Other ascites (principal)
CPT/HCPCS: 85049; 85610; 96365; 49083; J2001; P9047

== ENCOUNTER 2018-02-07 11:57 | Day surgery (SDC) | payer BC ==
[2018-02-07] MEDS ORDERED: LIDOCAINE 1% INJ 10MG/ML (20 ML MDV) SQ ONE (12:23)
[2018-02-07 12:29] VITALS: RESP 20; TEMP 98.4
[2018-02-07 12:37] LABS: Mean Platelet Volume 6.8; Platelet Count 293 k/uL (150-450)
[2018-02-07 12:41] LABS: INR 1.5 (<1.2); Prothrombin Time 13.8 sec (9.0-12.0)
[2018-02-07] MEDS: ALBUMIN HUMAN 25% 50 ML in EMPTY BAG 1 BAG IVPB SCH ×4 (13:40→14:25)
[2018-02-07 14:34] VITALS: BP 114/57; PULSE 93
--- NOTE | 2018-02-07 14:46 | US ---
EXAMINATION TYPE: US paracentesis abd w/image DATE OF EXAM: 02/07/2018 COMPARISON: NONE HISTORY: Ascites. PROCEDURE: Maximal barrier technique was utilized. The skin overlying a suitable pocket of fluid was localized with ultrasound and the overlying skin was prepped and draped. Ultrasound was utilized with sterile technique. Lidocaine was used for local anesthesia and a skin angelo made with a scalpel. Catheter was advanced under direct ultrasound guidance into a suitable pocket of fluid and approximately 8.6 liter s of serous fluid were removed. Catheter was withdrawn and hemostasis achieved. There is no immedia te complication; the patient is discharged in stable condition. IMPRESSION: STATUS POST ULTRASOUND GUIDED PARACENTESIS FOR PALLIATION OF ASCITES. THIS PROCEDURE WA S PERFORMED BY THE UNDERSIGNED.
== END 2018-02-07 15:00 | disposition home or self-care (01) ==
LOC: RADPROMAIN 11:57
DX: R18.8 Other ascites (principal)
CPT/HCPCS: 82565; 85049; 85610; 96365; 36415; 49083; J2001; P9047

== ENCOUNTER 2018-02-21 12:07 | Day surgery (SDC) | payer BC ==
[2018-02-21 12:38] LABS: Mean Platelet Volume 6.6; Platelet Count 291 k/uL (150-450)
[2018-02-21 12:47] LABS: INR 1.5 (<1.2); Prothrombin Time 13.8 sec (9.0-12.0)
[2018-02-21 12:48] VITALS: RESP 16; TEMP 97
[2018-02-21] MEDS: ALBUMIN HUMAN 25% 50 ML in EMPTY BAG 1 BAG IVPB SCH ×4 (13:24→14:13)
[2018-02-21] MEDS ORDERED: LIDOCAINE 1% INJ 10MG/ML (20 ML MDV) SQ ONE (13:34)
[2018-02-21 15:06] VITALS: BP 101/59; PULSE 86
--- NOTE | 2018-02-21 15:37 | US ---
Therapeutic paracentesis. DATE OF EXAM: 02/21/2018 CLINICAL HISTORY: Therapeutic paracentesis. DATE OF EXAM: 02/21/2018 CLINICAL HISTORY: Ascites The procedure was discussed with the patient. The risks, complications, benefits, and alternatives we re discussed and any questions were answered. Informed consent was obtained. The patient was placed s upine on the ultrasound table and prepped and draped in the usual sterile fashion. All elements of maximal barrier technique were utilized. Under ultrasound guidance, access into the left lower quadrant was obtained, via the paracentesis catheter system and direct ultrasound guidance . Approximately 9.1 liters of straw-colored fluid was removed. The patient was stable throughout the pr ocedure and remained stable upon discharge from Department of Radiology. IMPRESSION: Successful therapeutic paracentesis under ultrasound guidance. The procedure was discussed with the patient. The risks, complications, benefits, and alternatives we re discussed and any questions were answered. Informed consent was obtained. The patient was placed s upine on the ultrasound table and prepped and draped in the usual sterile fashion. All elements of maximal barrier technique were utilized. Under ultrasound guidance, access into the lower quadrant was obtained, via the paracentesis catheter system and direct ultrasound guidance. Approximately liters of straw-colored fluid was removed. The patient was stable throughout the proced ure and remained stable upon discharge from Department of Radiology.
== END 2018-02-21 14:45 | disposition home or self-care (01) ==
LOC: RADPROMAIN 12:07
DX: R18.8 Other ascites (principal)
CPT/HCPCS: 82565; 85049; 85610; 36415; 49083; J2001; P9047

== ENCOUNTER 2018-03-07 11:56 | Day surgery (SDC) | payer BC ==
[2018-03-07 12:33] LABS: Mean Platelet Volume 6.7; Platelet Count 312 k/uL (150-450)
[2018-03-07 12:36] VITALS: RESP 20; TEMP 97.6
[2018-03-07 12:46] LABS: INR 1.4 (<1.2); Prothrombin Time 13.1 sec (9.0-12.0)
[2018-03-07] MEDS: ALBUMIN HUMAN 25% 50 ML in EMPTY BAG 1 BAG IVPB SCH ×4 (13:31→14:18)
[2018-03-07 14:53] VITALS: BP 151/51; PULSE 87
--- NOTE | 2018-03-08 09:42 | US ---
Therapeutic paracentesis. DATE OF EXAM: 03/07/2018 CLINICAL HISTORY: Ascites The procedure was discussed with the patient. The risks, complications, benefits, and alternatives we re discussed and any questions were answered. Informed consent was obtained. The patient was placed s upine on the ultrasound table and prepped and draped in the usual sterile fashion. All elements of maximal barrier technique were utilized. Under ultrasound guidance, access into the left lower quadrant was obtained, via the paracentesis catheter system and direct ultrasound guidance . Approximately 9.6 liters of straw-colored fluid was removed. The patient was stable throughout the pr ocedure and remained stable upon discharge from Department of Radiology. IMPRESSION: Successful therapeutic paracentesis under ultrasound guidance.
== END 2018-03-07 15:15 | disposition home or self-care (01) ==
LOC: RADPROMAIN 11:56
DX: R18.8 Other ascites (principal)
CPT/HCPCS: 82565; 85049; 85610; 96365; 36415; 49083; P9047

== ENCOUNTER 2018-03-22 08:34 | Day surgery (SDC) | payer BC ==
[2018-03-22 09:34] VITALS: TEMP 98.1
[2018-03-22 09:40] LABS: HCT 30.2 % (34.0-46.0); HGB 9.9 gm/dL (11.4-16.0); MCH 28.4 pg (25.0-35.0); MCHC 32.7 g/dL (31.0-37.0); MCV 86.8 fL (80.0-100.0); Mean Platelet Volume 6.7; Platelet Count 305 k/uL (150-450); RBC 3.48 m/uL (3.80-5.40); RDW 15.9 % (11.5-15.5); WBC 8.4 k/uL (3.8-10.6)
[2018-03-22 09:44] LABS: INR 1.5 (<1.2); Prothrombin Time 13.8 sec (9.0-12.0)
[2018-03-22 09:48] LABS: ALT 29 U/L (9-52); AST 64 U/L (14-36); Albumin 2.8 g/dL (3.5-5.0); Alkaline Phosphatase 129 U/L (38-126); Anion Gap 12 mmol/L; Blood Urea Nitrogen 8 mg/dL (7-17); Calcium 8.2 mg/dL (8.4-10.2); Carbon Dioxide 23 mmol/L (22-30); Chloride 93 mmol/L (98-107); Glucose 121 mg/dL (74-99); Sodium 128 mmol/L (137-145); Total Bilirubin 2.3 mg/dL (0.2-1.3); Total Protein 6.6 g/dL (6.3-8.2)
[2018-03-22 09:51] LABS: Potassium 3.8 mmol/L (3.5-5.1)
[2018-03-22] MEDS: ALBUMIN HUMAN 25% 50 ML in EMPTY BAG 1 BAG IVPB SCH ×4 (10:24→11:16)
[2018-03-22 12:17] VITALS: RESP 16
[2018-03-22 12:19] VITALS: BP 134/78; PULSE 82
--- NOTE | 2018-03-22 12:43 | US ---
EXAMINATION TYPE: US paracentesis abd w/image DATE OF EXAM: 03/22/2018 COMPARISON: NONE HISTORY: Ascites. PROCEDURE: Maximal barrier technique was utilized. The skin overlying a suitable pocket of fluid was localized with ultrasound and the overlying skin was prepped and draped. Ultrasound was utilized with sterile technique. Lidocaine was used for local anesthesia and a skin angelo made with a scalpel. Catheter was advanced under direct ultrasound guidance into a suitable pocket of fluid and approximately 8.5 liter s of serous fluid were removed. Catheter was withdrawn and hemostasis achieved. There is no immedia te complication; the patient is discharged in stable condition. IMPRESSION: STATUS POST ULTRASOUND GUIDED PARACENTESIS FOR PALLIATION OF ASCITES. THIS PROCEDURE WA S PERFORMED BY THE UNDERSIGNED.
== END 2018-03-22 11:50 | disposition home or self-care (01) ==
LOC: RADPROMAIN 08:34
DX: K70.31 Alcoholic cirrhosis of liver with ascites (principal)
CPT/HCPCS: 80053; 85027; 85610; 36415; 49083; P9047

== ENCOUNTER 2018-04-02 12:18 | Day surgery (SDC) | payer BC ==
[2018-04-02 12:43] VITALS: TEMP 98.5
[2018-04-02 12:47] LABS: Mean Platelet Volume 6.8; Platelet Count 278 k/uL (150-450)
[2018-04-02 12:53] LABS: INR 1.4 (<1.2); Prothrombin Time 13.1 sec (9.0-12.0)
[2018-04-02] MEDS: ALBUMIN HUMAN 25% 50 ML in EMPTY BAG 1 BAG IVPB SCH ×4 (13:24→13:56)
[2018-04-02 14:00] VITALS: RESP 18
[2018-04-02 14:32] VITALS: BP 95/56; PULSE 87
--- NOTE | 2018-04-02 14:46 | US ---
EXAMINATION TYPE: US paracentesis abd w/image DATE OF EXAM: 04/02/2018 COMPARISON: NONE HISTORY: Ascites. PROCEDURE: Maximal barrier technique was utilized. The skin overlying a suitable pocket of fluid was localized with ultrasound and the overlying skin was prepped and draped. Ultrasound was utilized with sterile technique. Lidocaine was used for local anesthesia and a skin angelo made with a scalpel. Catheter was advanced under direct ultrasound guidance into a suitable pocket of fluid and approximately 11.8 lite rs of serous fluid were removed. Catheter was withdrawn and hemostasis achieved. There is no immedi ate complication; the patient is discharged in stable condition. IMPRESSION: STATUS POST ULTRASOUND GUIDED PARACENTESIS FOR PALLIATION OF ASCITES. THIS PROCEDURE WA S PERFORMED BY THE UNDERSIGNED.
== END 2018-04-02 14:40 | disposition home or self-care (01) ==
LOC: RADPROMAIN 12:18
DX: R18.8 Other ascites (principal)
CPT/HCPCS: 82565; 85049; 85610; 49083; P9047

== ENCOUNTER 2018-04-09 12:09 | Day surgery (SDC) | payer BC ==
[2018-04-09 12:53] VITALS: RESP 20; TEMP 98.1
[2018-04-09 12:59] LABS: Mean Platelet Volume 6.8; Platelet Count 285 k/uL (150-450)
[2018-04-09 13:05] LABS: INR 1.3 (<1.2); Prothrombin Time 12.2 sec (9.0-12.0)
[2018-04-09] MEDS: ALBUMIN HUMAN 25% 50 ML in EMPTY BAG 1 BAG IVPB SCH ×4 (13:49→14:33)
[2018-04-09 15:01] VITALS: BP 94/50; PULSE 82
--- NOTE | 2018-04-09 15:20 | US ---
Therapeutic paracentesis. DATE OF EXAM: 04/09/2018 CLINICAL HISTORY: Ascites The procedure was discussed with the patient. The risks, complications, benefits, and alternatives we re discussed and any questions were answered. Informed consent was obtained. The patient was placed s upine on the ultrasound table and prepped and draped in the usual sterile fashion. All elements of maximal barrier technique were utilized. Under ultrasound guidance, access into the right lower quadrant was obtained, via the paracentesis catheter system and direct ultrasound guidanc e. Approximately 9.8 liters of straw-colored fluid was removed. The patient was stable throughout the pr ocedure and remained stable upon discharge from Department of Radiology. IMPRESSION: Successful therapeutic paracentesis under ultrasound guidance.
== END 2018-04-09 15:10 | disposition home or self-care (01) ==
LOC: RADPROMAIN 12:09
DX: R18.8 Other ascites (principal)
CPT/HCPCS: 82565; 85049; 85610; 36415; 49083; P9047

== ENCOUNTER 2018-04-17 07:43 | Day surgery (SDC) | payer BC ==
[2018-04-17 08:31] LABS: Mean Platelet Volume 6.6; Platelet Count 296 k/uL (150-450)
[2018-04-17 08:40] LABS: INR 1.3 (<1.2); Prothrombin Time 12.4 sec (9.0-12.0)
[2018-04-17] MEDS ORDERED: LIDOCAINE (PF) 10 MG/ML 2 ML VIAL SQ STA (09:03)
[2018-04-17] MEDS ORDERED: LIDOCAINE 1% INJ 10MG/ML (20 ML MDV) SQ STA (09:03)
[2018-04-17] MEDS: ALBUMIN HUMAN 25% 50 ML in EMPTY BAG 1 BAG IVPB SCH ×4 (09:05→09:52)
[2018-04-17 09:44] VITALS: RESP 16; TEMP 98.2
[2018-04-17 10:28] VITALS: BP 115/61; PULSE 88
--- NOTE | 2018-04-17 12:26 | US ---
Therapeutic paracentesis. DATE OF EXAM: 04/17/2018 CLINICAL HISTORY: Ascites The procedure was discussed with the patient. The risks, complications, benefits, and alternatives we re discussed and any questions were answered. Informed consent was obtained. The patient was placed s upine on the ultrasound table and prepped and draped in the usual sterile fashion. All elements of maximal barrier technique were utilized. Under ultrasound guidance, access into the left lower quadrant was obtained, via the paracentesis catheter system and direct ultrasound guidance . Approximately 9.8 liters of straw-colored fluid was removed. The patient was stable throughout the pr ocedure and remained stable upon discharge from Department of Radiology. IMPRESSION: Successful therapeutic paracentesis under ultrasound guidance.
== END 2018-04-17 10:30 | disposition home or self-care (01) ==
LOC: RADPROMAIN 07:43
DX: R18.8 Other ascites (principal)
CPT/HCPCS: 82565; 85049; 85610; 36415; 49083; J2001; P9047

== ENCOUNTER 2018-04-24 11:35 | Day surgery (SDC) | payer BC ==
[2018-04-24 12:35] LABS: Mean Platelet Volume 6.7; Platelet Count 290 k/uL (150-450)
[2018-04-24 12:40] VITALS: TEMP 98.4
[2018-04-24 12:42] LABS: INR 1.4 (<1.2); Prothrombin Time 12.8 sec (9.0-12.0)
[2018-04-24] MEDS: ALBUMIN HUMAN 25% 50 ML in EMPTY BAG 1 BAG IVPB SCH ×4 (13:14→14:08)
[2018-04-24 13:26] VITALS: RESP 16
[2018-04-24 15:00] VITALS: BP 111/56; PULSE 81
--- NOTE | 2018-04-24 15:37 | US ---
EXAMINATION TYPE: US paracentesis abd w/image DATE OF EXAM: 04/24/2018 COMPARISON: NONE HISTORY: Ascites. PROCEDURE: Maximal barrier technique was utilized. The skin overlying a suitable pocket of fluid was localized with ultrasound and the overlying skin was prepped and draped. Ultrasound was utilized with sterile technique. Lidocaine was used for local anesthesia and a skin angelo made with a scalpel. Catheter was advanced under direct ultrasound guidance into a suitable pocket of fluid and approximately 9.1 liter s of serous fluid were removed. Catheter was withdrawn and hemostasis achieved. There is no immedia te complication; the patient is discharged in stable condition. IMPRESSION: STATUS POST ULTRASOUND GUIDED PARACENTESIS FOR PALLIATION OF ASCITES. THIS PROCEDURE WA S PERFORMED BY THE UNDERSIGNED.
== END 2018-04-24 14:55 | disposition home or self-care (01) ==
LOC: RADPROMAIN 11:35
DX: R18.8 Other ascites (principal)
CPT/HCPCS: 82565; 85049; 85610; 36415; 49083; P9047

== ENCOUNTER 2018-05-01 11:56 | Day surgery (SDC) | payer BC ==
[2018-05-01 12:31] VITALS: TEMP 98.3
[2018-05-01 12:34] LABS: Mean Platelet Volume 6.8; Platelet Count 296 k/uL (150-450)
[2018-05-01 12:39] LABS: INR 1.3 (<1.2); Prothrombin Time 12.5 sec (9.0-12.0)
[2018-05-01] MEDS: ALBUMIN HUMAN 25% 50 ML in EMPTY BAG 1 BAG IVPB SCH ×4 (13:15→13:55)
[2018-05-01 13:24] VITALS: RESP 16
[2018-05-01 14:07] VITALS: BP 105/59; PULSE 81
--- NOTE | 2018-05-01 14:35 | US ---
Therapeutic paracentesis. DATE OF EXAM: 05/01/2018 CLINICAL HISTORY: Ascites The procedure was discussed with the patient. The risks, complications, benefits, and alternatives we re discussed and any questions were answered. Informed consent was obtained. The patient was placed s upine on the ultrasound table and prepped and draped in the usual sterile fashion. All elements of maximal barrier technique were utilized. Under ultrasound guidance, access into the right lower quadrant was obtained, via the paracentesis catheter system and direct ultrasound guidanc e. Approximately 8.6 liters of straw-colored fluid was removed. The patient was stable throughout the pr ocedure and remained stable upon discharge from Department of Radiology. IMPRESSION: Successful therapeutic paracentesis under ultrasound guidance.
== END 2018-05-01 14:25 | disposition home or self-care (01) ==
LOC: RADPROMAIN 11:56
DX: R18.8 Other ascites (principal)
CPT/HCPCS: 82565; 85049; 85610; 49083; P9047

== ENCOUNTER 2018-05-08 12:06 | Day surgery (SDC) | payer BC ==
[2018-05-08 12:41] VITALS: RESP 20; TEMP 98.2
[2018-05-08 12:44] LABS: Mean Platelet Volume 6.7; Platelet Count 291 k/uL (150-450)
[2018-05-08 12:55] LABS: INR 1.3 (<1.2); Prothrombin Time 12.4 sec (9.0-12.0)
[2018-05-08] MEDS: ALBUMIN HUMAN 25% 50 ML in EMPTY BAG 1 BAG IVPB SCH ×4 (13:45→14:33)
[2018-05-08 15:03] VITALS: BP 100/51; PULSE 85
--- NOTE | 2018-05-08 15:26 | US ---
Therapeutic paracentesis. DATE OF EXAM: 05/08/2018 CLINICAL HISTORY: Ascites The procedure was discussed with the patient. The risks, complications, benefits, and alternatives we re discussed and any questions were answered. Informed consent was obtained. The patient was placed s upine on the ultrasound table and prepped and draped in the usual sterile fashion. All elements of maximal barrier technique were utilized. Under ultrasound guidance, access into the left lower quadrant was obtained, via the paracentesis catheter system and direct ultrasound guidance . Approximately 8.8 liters of straw-colored fluid was removed. The patient was stable throughout the pr ocedure and remained stable upon discharge from Department of Radiology. IMPRESSION: Successful therapeutic paracentesis under ultrasound guidance.
== END 2018-05-08 15:20 | disposition home or self-care (01) ==
LOC: RADPROMAIN 12:06
DX: R18.8 Other ascites (principal)
CPT/HCPCS: 82565; 85049; 85610; 36415; 49083; P9047

== ENCOUNTER 2018-05-15 11:57 | Day surgery (SDC) | payer BC ==
[2018-05-15 13:17] LABS: Mean Platelet Volume 6.3; Platelet Count 276 k/uL (150-450)
[2018-05-15 13:21] LABS: INR 1.3 (<1.2); Prothrombin Time 12.6 sec (9.0-12.0)
[2018-05-15 13:25] LABS: Anion Gap 6 mmol/L; Carbon Dioxide 25 mmol/L (22-30); Chloride 97 mmol/L (98-107); Sodium 128 mmol/L (137-145)
[2018-05-15 13:43] VITALS: TEMP 98.2
[2018-05-15] MEDS: ALBUMIN HUMAN 25% 50 ML in EMPTY BAG 1 BAG IVPB SCH ×4 (14:18→15:11)
[2018-05-15 14:24] LABS: Potassium 4.1 mmol/L (3.5-5.1)
[2018-05-15 14:33] LABS: Blood Urea Nitrogen 12 mg/dL (7-17); Calcium 8.6 mg/dL (8.4-10.2); Glucose 102 mg/dL (74-99)
[2018-05-15 16:16] VITALS: RESP 16
[2018-05-15 16:19] VITALS: BP 99/52; PULSE 84
--- NOTE | 2018-05-15 17:06 | US ---
EXAMINATION TYPE: US paracentesis abd w/image DATE OF EXAM: 05/15/2018 COMPARISON: NONE HISTORY: Ascites. PROCEDURE: Maximal barrier technique was utilized. The skin overlying a suitable pocket of fluid was localized with ultrasound and the overlying skin was prepped and draped. Ultrasound was utilized with sterile technique. Lidocaine was used for local anesthesia and a skin angelo made with a scalpel. Catheter was advanced under direct ultrasound guidance into a suitable pocket of fluid and approximately 8 liters of serous fluid were removed. Catheter was withdrawn and hemostasis achieved. There is no immediate complication; the patient is discharged in stable condition. IMPRESSION: STATUS POST ULTRASOUND GUIDED PARACENTESIS FOR PALLIATION OF ASCITES. THIS PROCEDURE WA S PERFORMED BY THE UNDERSIGNED.
== END 2018-05-15 16:05 | disposition home or self-care (01) ==
LOC: RADPROMAIN 11:57
DX: R18.8 Other ascites (principal)
CPT/HCPCS: 80048; 85049; 85610; 36415; 49083; P9047

== ENCOUNTER 2018-05-22 12:44 | Day surgery (SDC) | payer BC ==
[2018-05-22 13:24] LABS: INR 1.4 (<1.2); Prothrombin Time 12.7 sec (9.0-12.0)
[2018-05-22 13:25] LABS: Mean Platelet Volume 6.1; Platelet Count 257 k/uL (150-450)
[2018-05-22 13:52] VITALS: TEMP 98.1
[2018-05-22] MEDS: ALBUMIN HUMAN 25% 50 ML in EMPTY BAG 1 BAG IVPB SCH ×3 (14:44→15:14)
[2018-05-22 16:14] VITALS: BP 104/62; PULSE 88; RESP 16
--- NOTE | 2018-05-22 16:40 | US ---
EXAMINATION TYPE: US paracentesis abd w/image DATE OF EXAM: 05/22/2018 COMPARISON: NONE HISTORY: Ascites. PROCEDURE: Maximal barrier technique was utilized. The skin overlying a suitable pocket of fluid was localized with ultrasound and the overlying skin was prepped and draped. Ultrasound was utilized with sterile technique. Lidocaine was used for local anesthesia and a skin angelo made with a scalpel. Catheter was advanced under direct ultrasound guidance into a suitable pocket of fluid and approximately 7.1 liter s of serous fluid were removed. Catheter was withdrawn and hemostasis achieved. There is no immedia te complication; the patient is discharged in stable condition. IMPRESSION: STATUS POST ULTRASOUND GUIDED PARACENTESIS FOR PALLIATION OF ASCITES. THIS PROCEDURE WA S PERFORMED BY THE UNDERSIGNED.
== END 2018-05-22 16:15 | disposition home or self-care (01) ==
LOC: RADPROMAIN 12:44
DX: R18.8 Other ascites (principal)
CPT/HCPCS: 82565; 85049; 85610; 36415; 49083; P9047

== ENCOUNTER 2018-05-29 12:32 | Day surgery (SDC) | payer BC ==
[2018-05-29 13:27] VITALS: RESP 20
[2018-05-29 13:28] LABS: Mean Platelet Volume 6.4; Platelet Count 296 k/uL (150-450)
[2018-05-29 13:31] VITALS: TEMP 98.1
[2018-05-29 13:32] LABS: INR 1.3 (<1.2); Prothrombin Time 12.7 sec (9.0-12.0)
[2018-05-29] MEDS: ALBUMIN HUMAN 25% 50 ML in EMPTY BAG 1 BAG IVPB SCH ×4 (14:29→15:21)
[2018-05-29 15:25] VITALS: BP 114/45; PULSE 86
--- NOTE | 2018-05-30 10:21 | US ---
EXAMINATION TYPE: US paracentesis abd w/image DATE OF EXAM: 05/29/2018 COMPARISON: NONE HISTORY: Ascites. PROCEDURE: Maximal barrier technique was utilized. The skin overlying a suitable pocket of fluid was localized with ultrasound and the overlying skin was prepped and draped. Ultrasound was utilized with sterile technique. Lidocaine was used for local anesthesia and a skin angelo made with a scalpel. Catheter was advanced under direct ultrasound guidance into a suitable pocket of fluid and approximately 7.7 liter s of serous fluid were removed. Catheter was withdrawn and hemostasis achieved. There is no immedia te complication; the patient is discharged in stable condition. IMPRESSION: STATUS POST ULTRASOUND GUIDED PARACENTESIS FOR PALLIATION OF ASCITES. THIS PROCEDURE WA S PERFORMED BY THE UNDERSIGNED.
== END 2018-05-29 15:45 | disposition home or self-care (01) ==
LOC: RADPROMAIN 12:32
DX: R18.8 Other ascites (principal)
CPT/HCPCS: 82565; 85049; 85610; 36415; 49083; P9047

== ENCOUNTER 2018-06-05 12:32 | Day surgery (SDC) | payer BC ==
[2018-06-05 12:57] LABS: Mean Platelet Volume 6.8; Platelet Count 284 k/uL (150-450)
[2018-06-05 12:58] VITALS: RESP 20
[2018-06-05 13:14] LABS: INR 1.3 (<1.2)
[2018-06-05] MEDS: ALBUMIN HUMAN 25% 50 ML in EMPTY BAG 1 BAG IVPB SCH ×4 (13:47→14:38)
[2018-06-05 13:56] VITALS: TEMP 98.1
[2018-06-05 14:37] VITALS: BP 95/51; PULSE 80
--- NOTE | 2018-06-05 14:55 | US ---
EXAMINATION TYPE: US paracentesis abd w/image DATE OF EXAM: 06/05/2018 CLINICAL HISTORY: Ascites The procedure was discussed with the patient. The risks, complications, benefits, and alternatives we re discussed and any questions were answered. Informed consent was obtained. The patient was placed s upine on the ultrasound table and prepped and draped in the usual sterile fashion. All elements of maximal barrier technique were utilized. Under ultrasound guidance, access into the right lower quadrant was obtained, via the paracentesis catheter system and direct ultrasound guidanc e. Approximately 7.3 liters of straw-colored fluid was removed. The patient was stable throughout the pr ocedure and remained stable upon discharge from Department of Radiology. IMPRESSION: Successful therapeutic paracentesis under ultrasound guidance.
== END 2018-06-05 14:55 | disposition home or self-care (01) ==
LOC: RADPROMAIN 12:32
DX: R18.8 Other ascites (principal)
CPT/HCPCS: 82565; 85049; 85610; 36415; 49083; P9047

== ENCOUNTER 2018-06-12 12:32 | Day surgery (SDC) | payer BC ==
[2018-06-12 13:10] VITALS: BP 114/59; PULSE 92; RESP 20; TEMP 101.8
[2018-06-12 13:10] LABS: Mean Platelet Volume 6.8; Platelet Count 243 k/uL (150-450)
[2018-06-12 13:15] LABS: INR 1.5 (<1.2); Prothrombin Time 13.7 sec (9.0-12.0)
--- NOTE | 2018-06-12 13:37 | US ---
Therapeutic paracentesis. DATE OF EXAM: 06/12/2018 CLINICAL HISTORY: Ascites The patient declined the procedure. The patient stated she had a recent spider bite and was not feeli ng well and preferred to defer the procedure. The patient was directed to the emergency room but refu sed. IMPRESSION: Patient deferred paracentesis.
[2018-06-12] MEDS: ALBUMIN HUMAN 25% 50 ML in EMPTY BAG 1 BAG IVPB SCH (14:11)
== END 2018-06-12 13:55 | disposition home or self-care (01) ==
LOC: RADPROMAIN 12:32
DX: R18.8 Other ascites (principal); T63.301A Toxic effect of unspecified spider venom, accidental (unintentional), initial encounter; Z53.29 Procedure and treatment not carried out because of patient's decision for other reasons
CPT/HCPCS: 36415; 76705; 82565; 85049; 85610

== ENCOUNTER 2018-06-19 12:20 | Day surgery (SDC) | payer BC ==
[2018-06-19 13:05] VITALS: RESP 20; TEMP 97.7
[2018-06-19 13:10] LABS: Mean Platelet Volume 6.5; Platelet Count 424 k/uL (150-450)
[2018-06-19 13:17] LABS: INR 1.4 (<1.2); Prothrombin Time 12.8 sec (9.0-12.0)
[2018-06-19] MEDS: ALBUMIN HUMAN 25% 50 ML in EMPTY BAG 1 BAG IVPB SCH ×4 (14:25→15:12)
[2018-06-19 15:27] VITALS: BP 108/55; PULSE 76
--- NOTE | 2018-06-19 15:55 | US ---
EXAMINATION TYPE: US paracentesis abd w/image DATE OF EXAM: 06/19/2018 COMPARISON: NONE HISTORY: Ascites. PROCEDURE: Maximal barrier technique was utilized. The skin overlying a suitable pocket of fluid was localized with ultrasound and the overlying skin was prepped and draped. Ultrasound was utilized with sterile technique. Lidocaine was used for local anesthesia and a skin angelo made with a scalpel. Catheter was advanced under direct ultrasound guidance into a suitable pocket of fluid and approximately 8.7 liter s of serous fluid were removed. Catheter was withdrawn and hemostasis achieved. There is no immedia te complication; the patient is discharged in stable condition. IMPRESSION: STATUS POST ULTRASOUND GUIDED PARACENTESIS FOR PALLIATION OF ASCITES. THIS PROCEDURE WA S PERFORMED BY THE UNDERSIGNED. Specimen obtained for laboratory analysis.
== END 2018-06-19 15:45 | disposition home or self-care (01) ==
LOC: RADPROMAIN 12:20
DX: R18.8 Other ascites (principal)
CPT/HCPCS: 82565; 85049; 85610; 36415; 49083; P9047

== ENCOUNTER 2018-06-26 12:26 | Day surgery (SDC) | payer BC ==
[2018-06-26 13:10] VITALS: RESP 16; TEMP 98.1
[2018-06-26 13:14] LABS: INR 1.4 (<1.2)
[2018-06-26 13:17] LABS: Mean Platelet Volume 6.5; Platelet Count 313 k/uL (150-450)
[2018-06-26] MEDS: ALBUMIN HUMAN 25% 50 ML in EMPTY BAG 1 BAG IVPB SCH ×4 (13:48→14:39)
[2018-06-26 15:20] VITALS: BP 114/62; PULSE 72
--- NOTE | 2018-06-26 15:33 | US ---
EXAMINATION TYPE: US paracentesis abd w/image DATE OF EXAM: 06/26/2018 COMPARISON: NONE HISTORY: Ascites. PROCEDURE: Maximal barrier technique was utilized. The skin overlying a suitable pocket of fluid was localized with ultrasound and the overlying skin was prepped and draped. Ultrasound was utilized with sterile technique. Lidocaine was used for local anesthesia and a skin angelo made with a scalpel. Catheter was advanced under direct ultrasound guidance into a suitable pocket of fluid and approximately 9.2 liter s of serous fluid were removed. Catheter was withdrawn and hemostasis achieved. There is no immedia te complication; the patient is discharged in stable condition. IMPRESSION: STATUS POST ULTRASOUND GUIDED PARACENTESIS FOR PALLIATION OF ASCITES. THIS PROCEDURE WA S PERFORMED BY THE UNDERSIGNED.
== END 2018-06-26 15:15 | disposition home or self-care (01) ==
LOC: RADPROMAIN 12:26
DX: R18.8 Other ascites (principal)
CPT/HCPCS: 82565; 85049; 85610; 36415; 49083; P9047

== ENCOUNTER 2018-07-03 12:38 | Day surgery (SDC) | payer BC ==
[2018-07-03 13:08] VITALS: RESP 20; TEMP 97.3
[2018-07-03 13:10] LABS: Mean Platelet Volume 6.6; Platelet Count 267 k/uL (150-450)
[2018-07-03 13:19] LABS: INR 1.3 (<1.2); Prothrombin Time 12.2 sec (9.0-12.0)
[2018-07-03] MEDS: ALBUMIN HUMAN 25% 50 ML in EMPTY BAG 1 BAG IVPB SCH ×4 (13:56→14:41)
--- NOTE | 2018-07-03 14:55 | US ---
Therapeutic paracentesis. DATE OF EXAM: 07/03/2018 CLINICAL HISTORY: ascities The procedure was discussed with the patient. The risks, complications, benefits, and alternatives we re discussed and any questions were answered. Informed consent was obtained. The patient was placed s upine on the ultrasound table and prepped and draped in the usual sterile fashion. All elements of maximal barrier technique were utilized. Under ultrasound guidance, access into the left lower quadrant was obtained, via the paracentesis catheter system and direct ultrasound guidance . Approximately 8.65 liters of straw-colored fluid was removed. The patient was stable throughout the p rocedure and remained stable upon discharge from Department of Radiology. IMPRESSION: Successful therapeutic paracentesis under ultrasound guidance.
[2018-07-03 15:21] VITALS: BP 101/59; PULSE 75
== END 2018-07-03 15:20 | disposition home or self-care (01) ==
LOC: RADPROMAIN 12:38
DX: R18.8 Other ascites (principal)
CPT/HCPCS: 82565; 85049; 85610; 36415; 49083; P9047

== ENCOUNTER 2018-07-10 12:37 | Day surgery (SDC) | payer BC ==
[2018-07-10 13:16] LABS: Mean Platelet Volume 6.9; Platelet Count 279 k/uL (150-450)
[2018-07-10 13:21] LABS: INR 1.3 (<1.2); Prothrombin Time 12.3 sec (9.0-12.0)
[2018-07-10 13:27] VITALS: TEMP 97.9
[2018-07-10] MEDS: ALBUMIN HUMAN 25% 50 ML in EMPTY BAG 1 BAG IVPB SCH ×4 (13:40→14:35)
[2018-07-10 14:34] VITALS: RESP 20
[2018-07-10 15:01] VITALS: BP 104/51; PULSE 72
--- NOTE | 2018-07-10 16:03 | US ---
EXAMINATION TYPE: US paracentesis abd w/image DATE OF EXAM: 07/10/2018 COMPARISON: NONE HISTORY: Ascites. PROCEDURE: Maximal barrier technique was utilized. The skin overlying a suitable pocket of fluid was localized with ultrasound and the overlying skin was prepped and draped. Ultrasound was utilized with sterile technique. Lidocaine was used for local anesthesia and a skin angelo made with a scalpel. Catheter was advanced under direct ultrasound guidance into a suitable pocket of fluid and approximately 8.8 liter s of serous fluid were removed. Catheter was withdrawn and hemostasis achieved. There is no immedia te complication; the patient is discharged in stable condition. IMPRESSION: STATUS POST ULTRASOUND GUIDED PARACENTESIS FOR PALLIATION OF ASCITES. THIS PROCEDURE WA S PERFORMED BY THE UNDERSIGNED.
== END 2018-07-10 15:30 | disposition home or self-care (01) ==
LOC: RADPROMAIN 12:37
DX: R18.8 Other ascites (principal)
CPT/HCPCS: 82565; 85049; 85610; 36415; 49083; P9047

== ENCOUNTER 2018-07-17 12:30 | Day surgery (SDC) | payer BC ==
[2018-07-17 13:08] LABS: Mean Platelet Volume 7.1; Platelet Count 263 k/uL (150-450)
[2018-07-17 13:16] VITALS: RESP 20; TEMP 97.7
[2018-07-17 13:24] LABS: INR 1.3 (<1.2); Prothrombin Time 12.2 sec (9.0-12.0)
[2018-07-17] MEDS: ALBUMIN HUMAN 25% 50 ML in EMPTY BAG 1 BAG IVPB SCH ×4 (14:11→14:55)
[2018-07-17 15:09] VITALS: BP 110/53; PULSE 83
--- NOTE | 2018-07-17 16:07 | US ---
EXAMINATION TYPE: US paracentesis abd w/image DATE OF EXAM: 07/17/2018 COMPARISON: NONE HISTORY: Ascites. PROCEDURE: Maximal barrier technique was utilized. The skin overlying a suitable pocket of fluid was localized with ultrasound and the overlying skin was prepped and draped. Ultrasound was utilized with sterile technique. Lidocaine was used for local anesthesia and a skin angelo made with a scalpel. Catheter was advanced under direct ultrasound guidance into a suitable pocket of fluid and approximately 8.1 liter s of cloudy fluid were removed. Catheter was withdrawn and hemostasis achieved. There is no immedia te complication; the patient is discharged in stable condition. IMPRESSION: STATUS POST ULTRASOUND GUIDED PARACENTESIS FOR PALLIATION OF ASCITES. THIS PROCEDURE WA S PERFORMED BY THE UNDERSIGNED.
== END 2018-07-17 15:30 | disposition home or self-care (01) ==
LOC: RADPROMAIN 12:30
DX: R18.8 Other ascites (principal)
CPT/HCPCS: 82565; 85049; 85610; 36415; 49083; P9047

== ENCOUNTER 2018-07-24 12:10 | Day surgery (SDC) | payer BC ==
[2018-07-24 12:34] VITALS: TEMP 97.7
[2018-07-24 12:49] LABS: Mean Platelet Volume 6.5; Platelet Count 272 k/uL (150-450)
[2018-07-24 12:54] LABS: INR 1.2 (<1.2); Prothrombin Time 11.6 sec (9.0-12.0)
[2018-07-24] MEDS: ALBUMIN HUMAN 25% 50 ML in EMPTY BAG 1 BAG IVPB SCH ×4 (13:20→14:03)
[2018-07-24 13:56] VITALS: RESP 20
[2018-07-24 14:07] VITALS: BP 110/56; PULSE 86
--- NOTE | 2018-07-24 15:13 | US ---
EXAMINATION TYPE: US paracentesis abd w/image DATE OF EXAM: 07/24/2018 COMPARISON: NONE HISTORY: Ascites. PROCEDURE: Maximal barrier technique was utilized. The skin overlying a suitable pocket of fluid was localized with ultrasound and the overlying skin was prepped and draped. Ultrasound was utilized with sterile technique. Lidocaine was used for local anesthesia and a skin angelo made with a scalpel. Catheter was advanced under direct ultrasound guidance into a suitable pocket of fluid and approximately 9.2 liter s of serous fluid were removed. Catheter was withdrawn and hemostasis achieved. There is no immedia te complication; the patient is discharged in stable condition. IMPRESSION: STATUS POST ULTRASOUND GUIDED PARACENTESIS FOR PALLIATION OF ASCITES. THIS PROCEDURE WA S PERFORMED BY THE UNDERSIGNED.
== END 2018-07-24 14:20 | disposition home or self-care (01) ==
LOC: RADPROMAIN 12:10
DX: R18.8 Other ascites (principal)
CPT/HCPCS: 82565; 85049; 85610; 49083; P9047

== ENCOUNTER 2018-08-07 13:10 | Day surgery (SDC) | payer BC ==
[2018-08-07 13:41] LABS: Mean Platelet Volume 6.6; Platelet Count 288 k/uL (150-450)
[2018-08-07 13:46] VITALS: RESP 16; TEMP 98
[2018-08-07 13:48] LABS: INR 1.2 (<1.2); Prothrombin Time 11.9 sec (9.0-12.0)
[2018-08-07] MEDS: ALBUMIN HUMAN 25% 50 ML in EMPTY BAG 1 BAG IVPB SCH ×4 (14:23→15:09)
[2018-08-07 16:10] VITALS: BP 99/54; PULSE 86
--- NOTE | 2018-08-07 17:10 | US ---
EXAMINATION TYPE: US paracentesis abd w/image DATE OF EXAM: 08/07/2018 COMPARISON: NONE HISTORY: Ascites. PROCEDURE: Maximal barrier technique was utilized. The skin overlying a suitable pocket of fluid was localized with ultrasound and the overlying skin was prepped and draped. Ultrasound was utilized with sterile technique. Lidocaine was used for local anesthesia and a skin angelo made with a scalpel. Catheter was advanced under direct ultrasound guidance into a suitable pocket of fluid and approximately 10.3 lite rs of serious fluid were removed. Catheter was withdrawn and hemostasis achieved. There is no immed iate complication; the patient is discharged in stable condition. IMPRESSION: STATUS POST ULTRASOUND GUIDED PARACENTESIS FOR PALLIATION OF ASCITES. THIS PROCEDURE WA S PERFORMED BY THE UNDERSIGNED.
== END 2018-08-07 15:50 | disposition home or self-care (01) ==
LOC: RADPROMAIN 13:10
DX: R18.8 Other ascites (principal)
CPT/HCPCS: 82565; 85049; 85610; 36415; 49083; P9047

== ENCOUNTER 2018-08-14 12:58 | Day surgery (SDC) | payer BC ==
[2018-08-14 13:21] LABS: Platelet Count 257 k/uL (150-450)
[2018-08-14 13:27] VITALS: TEMP 97.6
[2018-08-14 13:32] LABS: INR 1.3 (<1.2); Prothrombin Time 12.1 sec (9.0-12.0)
[2018-08-14 14:07] VITALS: RESP 18
[2018-08-14] MEDS: ALBUMIN HUMAN 25% 50 ML in EMPTY BAG 1 BAG IVPB SCH ×4 (14:13→14:57)
[2018-08-14 15:13] VITALS: BP 107/50; PULSE 73
--- NOTE | 2018-08-15 09:25 | US ---
Therapeutic paracentesis. DATE OF EXAM: 08/14/2018 CLINICAL HISTORY: Ascites The procedure was discussed with the patient. The risks, complications, benefits, and alternatives we re discussed and any questions were answered. Informed consent was obtained. The patient was placed s upine on the ultrasound table and prepped and draped in the usual sterile fashion. All elements of maximal barrier technique were utilized. Under ultrasound guidance, access into the left lower quadrant was obtained, via the paracentesis catheter system and direct ultrasound guidance . Approximately 10.3 liters of straw-colored fluid was removed. The patient was stable throughout the p rocedure and remained stable upon discharge from Department of Radiology. IMPRESSION: Successful therapeutic paracentesis under ultrasound guidance.
== END 2018-08-14 15:19 | disposition home or self-care (01) ==
LOC: RADPROMAIN 12:58
DX: R18.8 Other ascites (principal)
CPT/HCPCS: 82565; 85049; 85610; 49083; P9047

== ENCOUNTER 2018-08-21 12:56 | Day surgery (SDC) | payer BC ==
[2018-08-21 13:34] LABS: Platelet Count 259 k/uL (150-450)
[2018-08-21 13:39] LABS: INR 1.2 (<1.2); Prothrombin Time 11.5 sec (9.0-12.0)
[2018-08-21 13:43] VITALS: RESP 16; TEMP 97.8
[2018-08-21] MEDS: ALBUMIN HUMAN 25% 50 ML in EMPTY BAG 1 BAG IVPB SCH ×4 (14:14→15:05)
[2018-08-21 15:13] VITALS: BP 214/70; PULSE 74
--- NOTE | 2018-08-24 09:16 | US ---
Therapeutic paracentesis. DATE OF EXAM: 08/21/2018 CLINICAL HISTORY: Ascites The procedure was discussed with the patient. The risks, complications, benefits, and alternatives we re discussed and any questions were answered. Informed consent was obtained. The patient was placed s upine on the ultrasound table and prepped and draped in the usual sterile fashion. All elements of maximal barrier technique were utilized. Under ultrasound guidance, access into the left lower quadrant was obtained, via the paracentesis catheter system and direct ultrasound guidance . Approximately 10.3 liters of straw-colored fluid was removed. The patient was stable throughout the p rocedure and remained stable upon discharge from Department of Radiology. IMPRESSION: Successful therapeutic paracentesis under ultrasound guidance.
== END 2018-08-21 15:43 | disposition home or self-care (01) ==
LOC: RADPROMAIN 12:56
DX: R18.8 Other ascites (principal)
CPT/HCPCS: 82565; 85049; 85610; 36415; 49083; P9047

== ENCOUNTER 2018-08-28 14:06 | Inpatient (IN) | payer BC, OTHER ==
[2018-08-28 13:28] LABS: Mean Platelet Volume 7.5; Platelet Count 244 k/uL (150-450)
[2018-08-28 13:37] LABS: INR 1.1 (<1.2)
[2018-08-28 13:38] LABS: Prothrombin Time 11.8 sec (9.0-12.0)
[2018-08-28 14:08] LABS: Anisocytosis Slight; HCT 21.2 % (34.0-46.0); Hypochromasia Moderate; MCH 26.9 pg (25.0-35.0); MCHC 32.3 g/dL (31.0-37.0); MCV 83.5 fL (80.0-100.0); Mean Platelet Volume 7.5; Platelet Count 244 k/uL (150-450); RBC 2.54 m/uL (3.80-5.40); WBC 5.4 k/uL (3.8-10.6)
[2018-08-28 14:11] LABS: HGB 6.8 gm/dL (11.4-16.0)
[2018-08-28] MEDS: ALBUMIN HUMAN 25% 50 ML in EMPTY BAG 1 BAG IVPB SCH (14:12)
--- NOTE | 2018-08-28 15:05 | US ---
Discontinued paracentesis HISTORY: Ascites Exam was that started due to patient's anemia. Patient to be rescheduled.
--- NOTE | 2018-08-28 15:07 | ED ---
General Adult HPI - General Chief complaint: Recheck/Abnormal Lab/Rx Time Seen by Provider: 08/28/18 14:10 Source: patient, RN notes reviewed Mode of arrival: wheelchair Limitations: no limitations - History of Present Illness Initial comments: This is a 48-year-old female with past medical history significant for liver failure from alcoholism. Patient comes in today to get her ascites drained and blood was drawn she had hemoglobin is 6.8 so she was sent to the emergency department. Patient states she has had no black or bloody stools. Patient has not noticed any worsening of difficulty breathing she denies any chest pain or palpitations. Patient denies any increased swelling aside from her abdomen. Patient states she feels weak and has been feeling weak for quite a while and states that this is unchanged. - Related Data Home Medications Medication Instructions Recorded Confirmed Furosemide [Lasix] 60 mg PO DAILY 12/12/17 08/28/18 Spironolactone [Aldactone] 150 mg PO DAILY 12/12/17 08/28/18 Thiamine [Vitamin B-1] 100 mg PO DAILY@1200 12/26/17 08/28/18 diphenhydrAMINE [Benadryl] 25 mg PO HS PRN 01/08/18 08/28/18 Lactulose [Cephulac] 30 gm PO BID PRN 05/22/18 08/28/18 Multivitamins, Thera [Multivitamin 1 tab PO DAILY@1200 08/28/18 08/28/18 (formulary)] Allergies Allergy/AdvReac Type Severity Reaction Status Date / Time No Known Allergies Allergy Verified 08/28/18 14:41 Review of Systems ROS Statement: Those systems with pertinent positive or pertinent negative responses have been documented in the HPI. ROS Other: All systems not noted in ROS Statement are negative. Past Medical History Past Medical History: Liver Disease Additional Past Medical History / Comment(s): ascites History of Any Multi-Drug Resistant Organisms: None Reported Past Surgical History: Section Additional Past Surgical History / Comment(s): gastric bypass in 2002 Past Anesthesia/Blood Transfusion Reactions: No Reported Reaction Additional Past Anesthesia/Blood Transfusion Reaction / Comment(s): never had blood transfusion Past Psychological History: No Psychological Hx Reported Smoking Status: Current every day smoker Past Alcohol Use History: Daily Past Drug Use History: None Reported - Past Family History Mother History Unknown: Yes Family Medical History: Congestive Heart Failure (CHF), COPD Father History Unknown: Yes Family Medical History: Diabetes Mellitus General Exam - General Exam Comments Initial Comments: GENERAL: Patient is well-developed and well-nourished. Patient is nontoxic and well- hydrated and is in mild distress. ENT: Neck is soft and supple. No significant lymphadenopathy is noted. Oropharynx is clear. Moist mucous membranes. EYES: The sclera were anicteric and conjunctiva were pink and moist. Extraocular movements were intact and pupils were equal round and reactive to light. Eyelids were unremarkable. PULMONARY: Unlabored respirations. Good breath sounds bilaterally. No audible rales rhonchi or wheezing was noted. CARDIOVASCULAR: There is a regular rate and rhythm without any murmurs gallops or rubs. ABDOMEN: Abdomen is distended typical for ascites SKIN: Skin is clear with no lesions or rashes and otherwise unremarkable. RECTAL: Stool was brown no hemorrhoids were noted no bright red blood was seen. NEUROLOGIC: Patient is alert and oriented x3. Cranial nerves II through XII are grossly intact. Motor and sensory are also intact. Normal speech, volume and content. Symmetrical smile. MUSCULOSKELETAL: Normal extremities with adequate strength and full range of motion. No lower extremity swelling or edema. No calf tenderness. LYMPHATICS: No significant lymphadenopathy is noted PSYCHIATRIC: Normal psychiatric evaluation. Limitations: no limitations Course Vital Signs 08/28/18 08/28/18 08/28/18 13:16 14:20 15:19 Temperature 97.5 F L 97.8 F Pulse Rate 82 70 Pulse Rate [ 65 Left Pulse Oximetery] Respiratory 20 16 18 Rate Blood Pressure 90/47 101/41 Blood Pressure 96/36 [Left Arm Supine] O2 Sat by Pulse 100 100 100 Oximetry 08/28/18 08/28/18 15:20 15:49 Temperature Pulse Rate 71 Pulse Rate [ Left Pulse Oximetery] Respiratory 18 16 Rate Blood Pressure 94/58 Blood Pressure [Left Arm Supine] O2 Sat by Pulse 100 Oximetry Medical Decision Making - Medical Decision Making EKG shows normal sinus rhythm at 73 bpm [place] interval 170 QRS is 132 QT interval 420 QTC is 462. Patient's EKG shows a right bundle branch block. Patient's hemoglobin was 6.8. I ordered the patient one unit of packed red blood cells. Hemoccult was positive. I spoke with some physicians admitted the patient admitted the patient wrote admitting orders did repetitive CBCs and consulted Dr. Devine movement seen the patient before. - Lab Data Result diagrams: 08/28/18 13:32 08/28/18 15:10 Lab Results 08/28/18 08/28/18 08/28/18 Range/Units 13:10 13:10 13:10 WBC (3.8-10.6) k/uL RBC (3.80-5.40) m/uL Hgb (11.4-16.0) gm/dL Hct (34.0-46.0) % MCV (80.0-100.0) fL MCH (25.0-35.0) pg MCHC (31.0-37.0) g/dL RDW (11.5-15.5) % Plt Count 244 (150-450) k/uL Hypochromasia Anisocytosis PT 11.8 (9.0-12.0) sec INR 1.1 (<1.2) Sodium (137-145) mmol/L Potassium (3.5-5.1) mmol/L Chloride (98-107) mmol/L Carbon Dioxide (22-30) mmol/L Anion Gap mmol/L BUN (7-17) mg/dL Creatinine 1.76 H (0.52-1.04) mg/dL Est GFR (CKD-EPI)AfAm 38 (>60 ml/min/1.73 sqM) Est GFR (CKD-EPI)NonAf 33 (>60 ml/min/1.73 sqM) Glucose (74-99) mg/dL Calcium (8.4-10.2) mg/dL Total Bilirubin (0.2-1.3) mg/dL AST (14-36) U/L ALT (9-52) U/L Alkaline Phosphatase (38-126) U/L Total Protein (6.3-8.2) g/dL Albumin (3.5-5.0) g/dL Stool Occult Blood (Negative) 08/28/18 08/28/18 08/28/18 Range/Units 13:32 15:10 15:10 WBC 5.4 (3.8-10.6) k/uL RBC 2.54 L (3.80-5.40) m/uL Hgb 6.8 L* (11.4-16.0) gm/dL Hct 21.2 L (34.0-46.0) % MCV 83.5 (80.0-100.0) fL MCH 26.9 (25.0-35.0) pg MCHC 32.3 (31.0-37.0) g/dL RDW 17.0 H (11.5-15.5) % Plt Count 244 (150-450) k/uL Hypochromasia Moderate Anisocytosis Slight PT (9.0-12.0) sec INR (<1.2) Sodium 125 L (137-145) mmol/L Potassium 5.3 H (3.5-5.1) mmol/L Chloride 102 (98-107) mmol/L Carbon Dioxide 18 L (22-30) mmol/L Anion Gap 5 mmol/L BUN 57 H (7-17) mg/dL Creatinine 1.71 H (0.52-1.04) mg/dL Est GFR (CKD-EPI)AfAm 40 (>60 ml/min/1.73 sqM) Est GFR (CKD-EPI)NonAf 34 (>60 ml/min/1.73 sqM) Glucose 96 (74-99) mg/dL Calcium 8.3 L (8.4-10.2) mg/dL Total Bilirubin 0.9 (0.2-1.3) mg/dL AST 44 H (14-36) U/L ALT 26 (9-52) U/L Alkaline Phosphatase 94 (38-126) U/L Total Protein 5.8 L (6.3-8.2) g/dL Albumin 2.7 L (3.5-5.0) g/dL Stool Occult Blood Positive H (Negative) Critical Care Time Critical Care Time: Yes Total Critical Care Time: 35 Disposition Clinical Impression: Anemia, GI bleed, Ascites, Cirrhosis Disposition: ADMITTED IP TO THIS [facility] Referrals: None,Stated [Primary Care Provider] - 1-2 days Time of Disposition: 16:22
[2018-08-28 15:41] LABS: Albumin 2.7 g/dL (3.5-5.0); Calcium 8.3 mg/dL (8.4-10.2); Potassium 5.3 mmol/L (3.5-5.1); Total Bilirubin 0.9 mg/dL (0.2-1.3); Total Protein 5.8 g/dL (6.3-8.2)
[2018-08-28] MEDS ORDERED: SODIUM CHLORIDE 0.9% 1,000 ML IV ONE (16:22)
[2018-08-28 16:52] LABS: Anisocytosis Slight; Basophils % (A) 1 %; Eosinophils # (A) 0.1 k/uL (0-0.7); Eosinophils % (A) 2 %; HCT 20.8 % (34.0-46.0); Hypochromasia Slight; Lymphocytes # (A) 1.3 k/uL (1.0-4.8); Lymphocytes % (A) 25 %; MCHC 31.5 g/dL (31.0-37.0); MCV 82.5 fL (80.0-100.0); Monocytes # (A) 0.4 k/uL (0-1.0); Monocytes % (A) 8 %; Neutrophils # (A) 3.2 k/uL (1.3-7.7); Neutrophils % (A) 63 %; Platelet Count 206 k/uL (150-450); RBC 2.52 m/uL (3.80-5.40); RDW 17.1 % (11.5-15.5); WBC 5.2 k/uL (3.8-10.6)
[2018-08-28 16:55] LABS: HGB 6.5 gm/dL (11.4-16.0)
[2018-08-28] MEDS ORDERED: ONDANSETRON 4 MG/2 ML VIAL IVP PRN (17:54)
[2018-08-28] MEDS ORDERED: NALOXONE 0.4 MG/ML 1 ML VIAL IV PRN (17:54)
[2018-08-28] MEDS ORDERED: LACTULOSE 20 GM/30 ML CUP PO PRN (17:55)
[2018-08-28] MEDS ORDERED: SODIUM CHLORIDE 0.9% 500 ML 500 ML IV ONE (17:57)
--- NOTE | 2018-08-28 18:06 | P.HPIM ---
History of Present Illness H&P Date: 08/28/18 Chief Complaint: fatigue, referred for abnormal labs The patient is a 48-year-old morbidly obese female with a past medical history of liver cirrhosis due to chronic alcoholism who presents to the ER after being referred here for abnormal labs. Apparently the patient has been getting recurrent abdominal paracentesis secondary to recurrent symptomatic ascites over the last several months, she gets them approximately once weekly. Today on presentation there they mitchell labs and the patient was noted to be profoundly anemic with a hemoglobin of 6.4, she was then referred to the ER here. The patient reports ongoing issues with fatigue and weakness and poor sleep, she reports that she normally has 10 L or 22 pounds of fluid aspirated after her treatments. She denies any chest pain, palpitations but reports intermittent episodes of nausea and wretching over the last 3-4 days, the patient denies any constipation or diarrhea, denies any dark melanotic stools or bright red blood per rectum. She reports that she has never been compliant with Lactulose and reports that she has not taken her Lasix and spironolactone and several days. She does complain of ongoing itchiness, denies any episodes of confusion recently. She denies any subjective fevers chills or night sweats but reports occasional episodes of lightheadedness and dizziness. She denies any lower extremity swelling Reports that her abdominal distention is not as bad as its previously been. The patient is usually followed by Dr. Botello in GI clinic. In the ER the patient had a comprehensive workup hemoglobin and hematocrit was noted to be 6.5/20.8, serum sodium level was 125, serum potassium 5.3, creatinine 1.71, and guaiac positive. Patient was noted to be hypotensive but reports that her blood pressures are normally low. EKG shows normal sinus rhythm at [address] interval 170 QRS is 132 QT interval 420 QTC is 462. Patient 's EKG shows a right bundle branch block. patient was ordered a unit of packed RBCs and recommended for admission for GI bleed Review of Systems Pertinent positives per HPI all other review of systems otherwise negative Past Medical History Past Medical History: Liver Disease Additional Past Medical History / Comment(s): ascites History of Any Multi-Drug Resistant Organisms: None Reported Past Surgical History: Section Additional Past Surgical History / Comment(s): gastric bypass in 2002 Past Anesthesia/Blood Transfusion Reactions: No Reported Reaction Additional Past Anesthesia/Blood Transfusion Reaction / Comment(s): never had blood transfusion Past Psychological History: No Psychological Hx Reported Smoking Status: Current every day smoker Past Alcohol Use History: Daily Past Drug Use History: None Reported - Past Family History Mother History Unknown: Yes Family Medical History: Congestive Heart Failure (CHF), COPD Father History Unknown: Yes Family Medical History: Diabetes Mellitus Medications and Allergies Home Medications Medication Instructions Recorded Confirmed Type Furosemide [Lasix] 60 mg PO DAILY 12/12/17 08/28/18 History Spironolactone [Aldactone] 150 mg PO DAILY 12/12/17 08/28/18 History Thiamine [Vitamin B-1] 100 mg PO DAILY@1200 12/26/17 08/28/18 History diphenhydrAMINE [Benadryl] 25 mg PO HS PRN 01/08/18 08/28/18 History Lactulose [Cephulac] 30 gm PO BID PRN 05/22/18 08/28/18 History Multivitamins, Thera [Multivitamin 1 tab PO DAILY@1200 08/28/18 08/28/18 History (formulary)] Allergies Allergy/AdvReac Type Severity Reaction Status Date / Time No Known Allergies Allergy Verified 08/28/18 14:41 Physical Exam Vitals: Vital Signs Temp Pulse Pulse Resp BP BP Pulse Ox 08/28/18 17:24 98.1 F 71 18 96/27 100 08/28/18 17:14 99.1 F 72 20 97/52 100 08/28/18 17:09 99.2 F 69 18 99/40 97 08/28/18 15:49 71 16 94/58 100 08/28/18 15:20 18 08/28/18 15:19 70 18 101/41 100 08/28/18 14:20 97.8 F 82 16 90/47 100 08/28/18 13:16 97.5 F L 65 20 96/36 100 Intake and Output 08/28/18 08/28/18 08/28/18 06:59 14:59 22:59 Intake Total 0 Balance 0 Intake: Blood Product 0 Rc Pheresis As-3 Unit 0 [id number] Other: Weight 113.398 kg Constitutional: No acute distress, conversant, pleasant Eyes: Anicteric sclerae, moist conjunctiva, no lid-lag, PERRLA ENMT: NC/AT,Oropharynx clear, no erythema, exudates Neck:Supple, FROM, no masses, or JVD, No carotid bruits; No thyromegaly Lungs: Clear to auscultation, Clear to percussion, Normal respiratory effort, no accessory muscle use Cardiovascular: Heart regular in rate and rhythm, No murmurs, gallops, or rubs no peripheral edema Abdominal: Soft Nontender, distended secondary to ascites, no guarding, no rebound or rigidity, Normoactive bowel sounds No hepatomegaly, No splenomegaly , No palpable mass No abdominal wall hernia noted Skin: Normal temperature, tone, texture, turgor, No induration No subcutaneous nodules, No rash, lesions, No ulcers Extremities:No digital cyanosis No clubbing, Pedal pulses intact and symmetrical Radial pulses intact and symmetrical Normal gait and station, No calf tenderness Psychiatric: Alert and oriented to person, place and time, Appropriate affect Intact judgement Neuro: Muscles Strength 5/5 in all 4 extremities, Sensation to light touch grossly present throughout, Cranial nerves II-XII grossly intact. No focal sensory deficits Results CBC & Chem 7: 08/29/18 06:39 08/29/18 06:39 Labs: Abnormal Lab Results - Last 24 Hours (Table) 08/28/18 08/28/18 08/28/18 Range/Units 13:10 13:32 15:10 RBC 2.54 L (3.80-5.40) m/uL Hgb 6.8 L* (11.4-16.0) gm/dL Hct 21.2 L (34.0-46.0) % RDW 17.0 H (11.5-15.5) % Sodium (137-145) mmol/L Potassium (3.5-5.1) mmol/L Carbon Dioxide (22-30) mmol/L BUN (7-17) mg/dL Creatinine 1.76 H (0.52-1.04) mg/dL Calcium (8.4-10.2) mg/dL AST (14-36) U/L Total Protein (6.3-8.2) g/dL Albumin (3.5-5.0) g/dL Stool Occult Blood Positive H (Negative) Crossmatch 08/28/18 08/28/18 08/28/18 Range/Units 15:10 15:20 15:52 RBC 2.52 L (3.80-5.40) m/uL Hgb 6.5 L* (11.4-16.0) gm/dL Hct 20.8 L (34.0-46.0) % RDW 17.1 H (11.5-15.5) % Sodium 125 L (137-145) mmol/L Potassium 5.3 H (3.5-5.1) mmol/L Carbon Dioxide 18 L (22-30) mmol/L BUN 57 H (7-17) mg/dL Creatinine 1.71 H (0.52-1.04) mg/dL Calcium 8.3 L (8.4-10.2) mg/dL AST 44 H (14-36) U/L Total Protein 5.8 L (6.3-8.2) g/dL Albumin 2.7 L (3.5-5.0) g/dL Stool Occult Blood (Negative) Crossmatch See Detail Assessment and Plan (1) GI bleed Current Visit: Yes Status: Acute Code(s): K92.2 - GASTROINTESTINAL HEMORRHAGE, UNSPECIFIED SNOMED Code(s): 64108310 (2) Acute blood loss anemia Current Visit: Yes Status: Acute Code(s): D62 - ACUTE POSTHEMORRHAGIC ANEMIA SNOMED Code(s): 559198640 (3) Liver cirrhosis, alcoholic Current Visit: Yes Status: Acute Code(s): K70.30 - ALCOHOLIC CIRRHOSIS OF LIVER WITHOUT ASCITES SNOMED Code(s): 194673128 (4) Ascites Current Visit: Yes Status: Acute Code(s): R18.8 - OTHER ASCITES SNOMED Code(s): 667107598 (5) Acute kidney injury Current Visit: Yes Status: Acute Code(s): N17.9 - ACUTE KIDNEY FAILURE, UNSPECIFIED SNOMED Code(s): 62106330 (6) Hyponatremia Current Visit: No Status: Acute Code(s): E87.1 - HYPO-OSMOLALITY AND HYPONATREMIA SNOMED Code(s): 85101929 Plan: the patient is admitted anticipate a greater than 2 midnight stay with concern for acute GI bleed with acute blood loss symptomatic anemia after presenting with a hemoglobin of 6.5, the patient is typed and cross and transfuse a unit of packed RBCs in the ER, GIs consulted given patient's history of liver cirrhosis. we will continue the patient's workup with checking iron studies. patient's blood pressure is borderline in the ER we'll give her 500 mL normal saline bolus. Patient also noted to be in acute kidney injury with a creatinine of 1.7, concern for hepatorenal syndrome for plan to consult nephrology for further recommendations. patient also hyponatremic suspect this is secondary to hypervolemia and fluid overload from her liver cirrhosis and ascites. patient placed on GI prophylaxis with Protonix and DVT prophylaxis with SCDs. we'll plan to continue to monitor her hemoglobins and continue to follow her clinical course CODE STATUS full code Anticipated discharge 2-3 days discussed plan of care with the patient
[2018-08-28] MEDS: PANTOPRAZOLE 40 MG/10 ML VIAL IVP SCH (20:57)
[2018-08-28] MEDS: GABAPENTIN 100 MG CAP PO SCH (21:02)
[2018-08-29 01:09] LABS: Anisocytosis Slight; Basophils % (A) 1 %; Eosinophils # (A) 0.2 k/uL (0-0.7); Eosinophils % (A) 3 %; Hypochromasia Moderate; Lymphocytes # (A) 1.6 k/uL (1.0-4.8); Lymphocytes % (A) 24 %; MCH 26.5 pg (25.0-35.0); MCHC 31.5 g/dL (31.0-37.0); MCV 84.1 fL (80.0-100.0); Mean Platelet Volume 7.3; Monocytes # (A) 0.4 k/uL (0-1.0); Monocytes % (A) 6 %; Neutrophils # (A) 4.3 k/uL (1.3-7.7); Neutrophils % (A) 65 %; Platelet Count 179 k/uL (150-450); RDW 16.7 % (11.5-15.5); WBC 6.6 k/uL (3.8-10.6)
[2018-08-29 01:17] LABS: HGB 6.6 gm/dL (11.4-16.0)
[2018-08-29 07:24] LABS: INR 1.2 (<1.2); Prothrombin Time 12.4 sec (9.0-12.0)
[2018-08-29 07:52] LABS: Anisocytosis Slight; HCT 20.8 % (34.0-46.0); Hypochromasia Slight; MCH 26.4 pg (25.0-35.0); MCHC 31.7 g/dL (31.0-37.0); MCV 83.3 fL (80.0-100.0); Mean Platelet Volume 7.3; Platelet Count 178 k/uL (150-450); RDW 17.1 % (11.5-15.5); WBC 5.3 k/uL (3.8-10.6)
[2018-08-29 07:55] LABS: HGB 6.6 gm/dL (11.4-16.0)
[2018-08-29 08:05] LABS: Potassium 5.5 mmol/L (3.5-5.1)
[2018-08-29] MEDS: PANTOPRAZOLE 40 MG/10 ML VIAL IVP SCH ×2 (08:35→22:45)
[2018-08-29] MEDS: MULTIVITAMINS, THERA 1 EACH TAB PO SCH (08:36)
[2018-08-29] MEDS: GABAPENTIN 100 MG CAP PO SCH ×3 (08:36→22:45)
[2018-08-29] MEDS: FUROSEMIDE 20 MG TAB PO SCH (08:36)
[2018-08-29] MEDS: THIAMINE 100 MG TAB PO SCH (08:36)
[2018-08-29] MEDS ORDERED: SPIRONOLACTONE 25 MG TAB PO SCH (09:00)
--- NOTE | 2018-08-29 10:23 | P.PN ---
Subjective Progress Note Date: 08/29/18 Patient is waiting to see in GI pension consultant, reports that her itchiness is much improved since being started on gabapentin last night. Denies any confusion, lightheadedness, denies any tremors. Received 1 unit of packed RBCs. Blood pressure continues to be borderline. No acute events overnight Objective - Vital Signs Vital signs: Vital Signs Temp 97.1 F L 08/29/18 08:00 Pulse 69 08/29/18 08:00 Resp 17 08/29/18 08:00 BP 98/51 08/29/18 08:00 Pulse Ox 100 08/29/18 08:00 Intake & Output 08/28/18 08/29/18 08/29/18 18:59 06:59 18:59 Intake Total 0 1110 230 Balance 0 1110 230 Weight 113.398 kg 117.9 kg Intake: IV 200 Sodium Chloride 0.9% 1, 200 000 ml @ 100 mls/hr IV . Q10H ONE Rx#:[id number] Intake, IV Titration 600 Amount Sodium Chloride 0.9% 1, 600 000 ml @ 100 mls/hr IV . Q10H ONE Rx#:[id number] Oral 200 30 Blood Product 0 310 Rc Pheresis As-3 Unit 0 310 [id number] Other: Voiding Method Toilet Toilet # Voids 1 - Exam Constitutional: No acute distress, conversant, pleasant Eyes: Anicteric sclerae, moist conjunctiva, no lid-lag, PERRLA ENMT: NC/AT,Oropharynx clear, no erythema, exudates Neck:Supple, FROM, no masses, or JVD, No carotid bruits; No thyromegaly Lungs: Clear to auscultation, Clear to percussion, Normal respiratory effort, no accessory muscle use Cardiovascular: Heart regular in rate and rhythm, No murmurs, gallops, or rubs no peripheral edema Abdominal: Soft Nontender, distended secondary to ascites, no guarding, no rebound or rigidity, Normoactive bowel sounds No hepatomegaly, No splenomegaly , No palpable mass No abdominal wall hernia noted Skin: Normal temperature, tone, texture, turgor, No induration No subcutaneous nodules, No rash, lesions, No ulcers Extremities:No digital cyanosis No clubbing, Pedal pulses intact and symmetrical Radial pulses intact and symmetrical Normal gait and station, No calf tenderness Psychiatric: Alert and oriented to person, place and time, Appropriate affect Intact judgement Neuro: Muscles Strength 5/5 in all 4 extremities, Sensation to light touch grossly present throughout, Cranial nerves II-XII grossly intact. No focal sensory deficits - Labs CBC & Chem 7: 08/30/18 05:49 08/29/18 06:39 Labs: Abnormal Lab Results - Last 24 Hours (Table) 08/28/18 08/28/18 08/28/18 Range/Units 13:10 13:32 15:10 RBC 2.54 L (3.80-5.40) m/uL Hgb 6.8 L* (11.4-16.0) gm/dL Hct 21.2 L (34.0-46.0) % RDW 17.0 H (11.5-15.5) % PT (9.0-12.0) sec INR (<1.2) Sodium (137-145) mmol/L Potassium (3.5-5.1) mmol/L Carbon Dioxide (22-30) mmol/L BUN (7-17) mg/dL Creatinine 1.76 H (0.52-1.04) mg/dL Calcium (8.4-10.2) mg/dL AST (14-36) U/L Total Protein (6.3-8.2) g/dL Albumin (3.5-5.0) g/dL Stool Occult Blood Positive H (Negative) Crossmatch 08/28/18 08/28/18 08/28/18 Range/Units 15:10 15:20 15:52 RBC 2.52 L (3.80-5.40) m/uL Hgb 6.5 L* (11.4-16.0) gm/dL Hct 20.8 L (34.0-46.0) % RDW 17.1 H (11.5-15.5) % PT (9.0-12.0) sec INR (<1.2) Sodium 125 L (137-145) mmol/L Potassium 5.3 H (3.5-5.1) mmol/L Carbon Dioxide 18 L (22-30) mmol/L BUN 57 H (7-17) mg/dL Creatinine 1.71 H (0.52-1.04) mg/dL Calcium 8.3 L (8.4-10.2) mg/dL AST 44 H (14-36) U/L Total Protein 5.8 L (6.3-8.2) g/dL Albumin 2.7 L (3.5-5.0) g/dL Stool Occult Blood (Negative) Crossmatch See Detail 08/29/18 08/29/18 08/29/18 Range/Units 00:48 06:39 06:39 RBC 2.50 L 2.50 L (3.80-5.40) m/uL Hgb 6.6 L* 6.6 L* (11.4-16.0) gm/dL Hct 21.0 L 20.8 L (34.0-46.0) % RDW 16.7 H 17.1 H (11.5-15.5) % PT 12.4 H (9.0-12.0) sec INR 1.2 H (<1.2) Sodium (137-145) mmol/L Potassium (3.5-5.1) mmol/L Carbon Dioxide (22-30) mmol/L BUN (7-17) mg/dL Creatinine (0.52-1.04) mg/dL Calcium (8.4-10.2) mg/dL AST (14-36) U/L Total Protein (6.3-8.2) g/dL Albumin (3.5-5.0) g/dL Stool Occult Blood (Negative) Crossmatch 08/29/18 Range/Units 06:39 RBC (3.80-5.40) m/uL Hgb (11.4-16.0) gm/dL Hct (34.0-46.0) % RDW (11.5-15.5) % PT (9.0-12.0) sec INR (<1.2) Sodium 127 L (137-145) mmol/L Potassium 5.5 H (3.5-5.1) mmol/L Carbon Dioxide 18 L (22-30) mmol/L BUN 52 H (7-17) mg/dL Creatinine 1.68 H (0.52-1.04) mg/dL Calcium 8.0 L (8.4-10.2) mg/dL AST (14-36) U/L Total Protein (6.3-8.2) g/dL Albumin (3.5-5.0) g/dL Stool Occult Blood (Negative) Crossmatch Assessment and Plan (1) GI bleed Narrative/Plan: * GI consultation pending, * Patient's blood pressure borderline received 1 unit of packed RBCs yesterday today 6.6 we'll type and cross and transfuse 1 more unit * continue to follow sequential CBCs checks * Continue PPI therapy with IV Protonix Current Visit: Yes Status: Acute Code(s): K92.2 - GASTROINTESTINAL HEMORRHAGE, UNSPECIFIED SNOMED Code(s): 75960444 (2) Acute blood loss anemia Narrative/Plan: * Secondary to problem above * Iron studies ordered and pending Current Visit: Yes Status: Acute Code(s): D62 - ACUTE POSTHEMORRHAGIC ANEMIA SNOMED Code(s): 059410259 (3) Liver cirrhosis, alcoholic Narrative/Plan: * Patient restarted on lactulose and Lasix Current Visit: Yes Status: Acute Code(s): K70.30 - ALCOHOLIC CIRRHOSIS OF LIVER WITHOUT ASCITES SNOMED Code(s): 682355665 (4) Ascites Narrative/Plan: * Patient will likely need paracentesis prior to discharge * GI consult pending Current Visit: Yes Status: Acute Code(s): R18.8 - OTHER ASCITES SNOMED Code(s): 966374194 (5) Acute kidney injury Narrative/Plan: * Nephrology consulted * Suspect prerenal etiology due to ongoing hypoperfusion patient also hypotensive due to GI bleed possibly hepatorenal syndrome * Creatinine slightly improved at 1.67 today * Continue to monitor hyperkalemia Current Visit: Yes Status: Acute Code(s): N17.9 - ACUTE KIDNEY FAILURE, UNSPECIFIED SNOMED Code(s): 61247625 (6) Hyponatremia Narrative/Plan: * Secondary to chronic liver disease with alcoholic liver cirrhosis, likely portal hypertension and ascites * Slight improvement in sodium up to 127 Current Visit: No Status: Acute Code(s): E87.1 - HYPO-OSMOLALITY AND HYPONATREMIA SNOMED Code(s): 03081692
--- NOTE | 2018-08-29 11:13 | P.CONS ---
History of Present Illness - Reason for Consult Consult date: 08/29/18 Anemia Requesting physician: Remington Benoit - Chief Complaint Weakness - History of Present Illness 48-year-old female well-known to Dr. Devine's practice with a past history of Willie -en-Y gastric bypass 2002, alcohol liver cirrhosis chronic ascites portal hypertension requiring multiple paracentesis. Patient was scheduled for outpatient paracentesis yesterday however CBC indicated drop in hemoglobin 6.8. Previous hemoglobin and Bing was 9.9. Patient received a unit of blood last night and present hemoglobin is 6.6. She is scheduled to receive an additional unit. MCV 84. Platelet 179. INR 1.1-1.2. FOBT positive. Denies aspirin and NSAIDs or alcohol. She has been feeling more weak tired lately. She has been receiving paracentesis on a weekly basis averaging 10 L removal. BUN 57. Creatinine 1.7. TB 0.9. AST 44. ALT 26. AP 94. AFP 1. 11/21/2017. Sodium 127. Potassium 5.5. No history GI bleed. No history of peptic ulcer disease. No history of EGD colonoscopy. Denies abdominal pain. Denies weight loss. Review of Systems Constitutional: Denies fever, chills, sweats, weight gain, or loss. HEENT: Negative for migraines, blurred vision or loss, earaches, drainage, tinnitus, oral mucosal lesions, dysphagia, or odynophagia. CARDIAC: Negative for chest pain, arrhythmias, or palpitation. RESPIRATORY: Negative for shortness of breath, hemoptysis, cough, or sputum production. GI: See HPI for pertinent findings. : Negative for hematuria, urgency, frequency, polyuria, or dysuria. GYNc: Denies possibility of . Negative vaginal discharge. MUSCULOSKELETAL: Negative for muscle aches, swelling, arthritis, and arthralgias. NEUROLOGIC: Negative for stroke or TIA. ENDOCRINE: Negative for thyroid problems. SKIN: Negative for rash or itching. PSYCHIATRIC: Negative history for depression and anxiety Past Medical History Past Medical History: Liver Disease Additional Past Medical History / Comment(s): ascites History of Any Multi-Drug Resistant Organisms: None Reported Past Surgical History: Section Additional Past Surgical History / Comment(s): gastric bypass in 2002 Past Anesthesia/Blood Transfusion Reactions: No Reported Reaction Additional Past Anesthesia/Blood Transfusion Reaction / Comm: never had blood transfusion Past Psychological History: No Psychological Hx Reported Smoking Status: Current every day smoker Past Alcohol Use History: Daily Past Drug Use History: None Reported - Past Family History Mother History Unknown: Yes Family Medical History: Congestive Heart Failure (CHF), COPD Father History Unknown: Yes Family Medical History: Diabetes Mellitus Medications and Allergies Home Medications Medication Instructions Recorded Confirmed Type Furosemide [Lasix] 60 mg PO DAILY 12/12/17 08/28/18 History Spironolactone [Aldactone] 150 mg PO DAILY 12/12/17 08/28/18 History Thiamine [Vitamin B-1] 100 mg PO DAILY@1200 12/26/17 08/28/18 History diphenhydrAMINE [Benadryl] 25 mg PO HS PRN 01/08/18 08/28/18 History Lactulose [Cephulac] 30 gm PO BID PRN 05/22/18 08/28/18 History Multivitamins, Thera [Multivitamin 1 tab PO DAILY@1200 08/28/18 08/28/18 History (formulary)] Allergies Allergy/AdvReac Type Severity Reaction Status Date / Time No Known Allergies Allergy Verified 08/28/18 14:41 Physical Exam Vitals: Vital Signs Temp Pulse Pulse Resp BP BP Pulse Ox 08/29/18 08:00 97.1 F L 69 17 98/51 100 08/29/18 04:00 97.2 F L 77 17 89/52 99 08/29/18 00:00 98.3 F 73 18 113/49 100 08/28/18 21:11 97.0 F L 75 20 101/57 100 08/28/18 21:09 75 18 08/28/18 19:18 97.6 F 75 96/62 96 08/28/18 18:49 97.5 F L 74 97/45 96 08/28/18 18:15 98.7 F 72 18 97/51 100 08/28/18 18:01 75 18 94/47 100 08/28/18 17:54 98.3 F 75 18 67/50 100 08/28/18 17:24 98.1 F 71 18 96/27 100 08/28/18 17:14 99.1 F 72 20 97/52 100 08/28/18 17:09 99.2 F 69 18 99/40 97 08/28/18 15:49 71 16 94/58 100 08/28/18 15:20 18 08/28/18 15:19 70 18 101/41 100 08/28/18 14:20 97.8 F 82 16 90/47 100 08/28/18 13:16 97.5 F L 65 20 96/36 100 Intake and Output 08/28/18 08/29/18 08/29/18 22:59 06:59 14:59 Intake Total 510 600 230 Balance 510 600 230 Intake: IV 200 Sodium Chloride 0.9% 1, 200 000 ml @ 100 mls/hr IV . Q10H ONE Rx#:[id number] Intake, IV Titration 600 Amount Sodium Chloride 0.9% 1, 600 000 ml @ 100 mls/hr IV . Q10H ONE Rx#:[id number] Oral 200 30 Blood Product 310 Rc Pheresis As-3 Unit 310 [id number] Other: Voiding Method Toilet Toilet Toilet # Voids 1 Weight 117.9 kg General appearance: The patient is alert, oriented, in no acute distress. HET: Head is normocephalic and atraumatic. Pupils are equal and reactive. Oropharynx is clear without lesions. Neck: Supple without lymphadenopathy. Trachea midline. Heart: S1 S2. Regular rate and rhythm. Lungs: No crackles or wheezes are heard. Abdomen: Soft, nontender, grossly distended with moderate ascites with bowel sounds. No peritoneal signs. No palpable organomegaly or masses. Extremities: Normal skin color and turgor. No cyanosis, rash, ulceration, clubbing, or edema. Radial and pedal pulses are 2/4 bilaterally. Neurological: No focal deficits. Strength and sensation are grossly intact. Results CBC & Chem 7: 08/29/18 06:39 08/29/18 06:39 Labs: Abnormal Lab Results - Last 24 Hours (Table) 08/28/18 08/28/18 08/28/18 Range/Units 13:10 13:32 15:10 RBC 2.54 L (3.80-5.40) m/uL Hgb 6.8 L* (11.4-16.0) gm/dL Hct 21.2 L (34.0-46.0) % RDW 17.0 H (11.5-15.5) % PT (9.0-12.0) sec INR (<1.2) Sodium (137-145) mmol/L Potassium (3.5-5.1) mmol/L Carbon Dioxide (22-30) mmol/L BUN (7-17) mg/dL Creatinine 1.76 H (0.52-1.04) mg/dL Calcium (8.4-10.2) mg/dL AST (14-36) U/L Total Protein (6.3-8.2) g/dL Albumin (3.5-5.0) g/dL Stool Occult Blood Positive H (Negative) Crossmatch 08/28/18 08/28/18 08/28/18 Range/Units 15:10 15:20 15:52 RBC 2.52 L (3.80-5.40) m/uL Hgb 6.5 L* (11.4-16.0) gm/dL Hct 20.8 L (34.0-46.0) % RDW 17.1 H (11.5-15.5) % PT (9.0-12.0) sec INR (<1.2) Sodium 125 L (137-145) mmol/L Potassium 5.3 H (3.5-5.1) mmol/L Carbon Dioxide 18 L (22-30) mmol/L BUN 57 H (7-17) mg/dL Creatinine 1.71 H (0.52-1.04) mg/dL Calcium 8.3 L (8.4-10.2) mg/dL AST 44 H (14-36) U/L Total Protein 5.8 L (6.3-8.2) g/dL Albumin 2.7 L (3.5-5.0) g/dL Stool Occult Blood (Negative) Crossmatch See Detail 08/29/18 08/29/18 08/29/18 Range/Units 00:48 06:39 06:39 RBC 2.50 L 2.50 L (3.80-5.40) m/uL Hgb 6.6 L* 6.6 L* (11.4-16.0) gm/dL Hct 21.0 L 20.8 L (34.0-46.0) % RDW 16.7 H 17.1 H (11.5-15.5) % PT 12.4 H (9.0-12.0) sec INR 1.2 H (<1.2) Sodium (137-145) mmol/L Potassium (3.5-5.1) mmol/L Carbon Dioxide (22-30) mmol/L BUN (7-17) mg/dL Creatinine (0.52-1.04) mg/dL Calcium (8.4-10.2) mg/dL AST (14-36) U/L Total Protein (6.3-8.2) g/dL Albumin (3.5-5.0) g/dL Stool Occult Blood (Negative) Crossmatch 08/29/18 Range/Units 06:39 RBC (3.80-5.40) m/uL Hgb (11.4-16.0) gm/dL Hct (34.0-46.0) % RDW (11.5-15.5) % PT (9.0-12.0) sec INR (<1.2) Sodium 127 L (137-145) mmol/L Potassium 5.5 H (3.5-5.1) mmol/L Carbon Dioxide 18 L (22-30) mmol/L BUN 52 H (7-17) mg/dL Creatinine 1.68 H (0.52-1.04) mg/dL Calcium 8.0 L (8.4-10.2) mg/dL AST (14-36) U/L Total Protein (6.3-8.2) g/dL Albumin (3.5-5.0) g/dL Stool Occult Blood (Negative) Crossmatch Assessment and Plan (1) Anemia Narrative/Plan: 48-year-old female history of alcohol liver cirrhosis portal hypertension chronic ascites admitted with weakness and fatigue normocytic hypochromic anemia with positive guaiac in without overt bleeding such as hematemesis hematochezia melena suggestive of acute blood loss anemia. Etiology of anemia is unclear possible upper source possible small bowel possible colonic. No history of EGD colonoscopy. Current Visit: Yes Status: Acute Code(s): D64.9 - ANEMIA, UNSPECIFIED SNOMED Code(s): 777114374 (2) Stool guaiac positive Current Visit: Yes Status: Acute Code(s): R19.5 - OTHER FECAL ABNORMALITIES SNOMED Code(s): 59542786 (3) Acute blood loss anemia Current Visit: Yes Status: Acute Code(s): D62 - ACUTE POSTHEMORRHAGIC ANEMIA SNOMED Code(s): 639609360 (4) Ascites Current Visit: Yes Status: Acute Code(s): R18.8 - OTHER ASCITES SNOMED Code(s): 318710856 (5) Liver cirrhosis, alcoholic Current Visit: Yes Status: Acute Code(s): K70.30 - ALCOHOLIC CIRRHOSIS OF LIVER WITHOUT ASCITES SNOMED Code(s): 809814116 Plan: 1. Paracentesis will provide postprocedure albumin. Blood transfusion. Iron indices pending. EGD/colonoscopy tomorrow. 2. Nephrology consult for elevated BUN/creatinine we'll defer to their service for diuretic guidance. 3. Will obtain AFP marker for surveillance. Will follow closely with you. The baffle installer has discussed the risks, benefits and alternative therapies for the above-mentioned procedure and for both sedation/analgesia as well as necessary blood product administration, if indicated, as they pertain to this patient. The patient has indicated understanding and acceptance of the risks and procedures discussed. Thank you for this kind referral and the opportunity to participate in the care of your patient. This consultation was discussed with Dr. Carmona. The impression and plan of care have been directed as dictated.
[2018-08-29 11:57] LABS: Iron Saturation 16.15 (12.00-45.00)
[2018-08-29] MEDS ORDERED: ALBUMIN HUMAN 25% 50 ML in EMPTY BAG 1 BAG IVPB ONE (14:55)
[2018-08-29] MEDS ORDERED: BISACODYL 5 MG TABLET.DR PO ONE (15:00)
[2018-08-29] MEDS: ALBUMIN HUMAN 25% 50 ML in EMPTY BAG 1 BAG IVPB SCH ×5 (15:53→18:14)
[2018-08-29] MEDS ORDERED: PEG 3350-NA SULF,BICARB,CL/KCL 4,000 ML BOTTLE PO ONE (16:00)
--- NOTE | 2018-08-29 16:15 | US ---
EXAMINATION TYPE: US paracentesis abd w/image DATE OF EXAM: 08/29/2018 COMPARISON: NONE HISTORY: Ascites. PROCEDURE: Maximal barrier technique was utilized. The skin overlying a suitable pocket of fluid was localized with ultrasound and the overlying skin was prepped and draped. Ultrasound was utilized with sterile technique. Lidocaine was used for local anesthesia and a skin angelo made with a scalpel. Catheter was advanced under direct ultrasound guidance into a suitable pocket of fluid and approximately 8 liters of serous fluid were removed. Catheter was withdrawn and hemostasis achieved. There is no immediate complication; the patient is discharged in stable condition. IMPRESSION: STATUS POST ULTRASOUND GUIDED PARACENTESIS FOR PALLIATION OF ASCITES. THIS PROCEDURE WA S PERFORMED BY THE UNDERSIGNED. Specimen sent for laboratory analysis.
[2018-08-29] MEDS: SODIUM CHLORIDE 0.9% 1,000 ML IV SCH (18:17)
[2018-08-29] MEDS: MIDODRINE 5 MG TAB PO SCH (18:17)
--- NOTE | 2018-08-29 19:44 | CONS ---
CONSULTATION REASON FOR CONSULT: Renal failure. HISTORY OF PRESENT ILLNESS: Patient is a 48-year-old female who has history of chronic liver disease, mostly secondary to alcoholic liver disease; portal hypertension with ascites and patient has been getting paracentesis once a week. She was admitted to the hospital as blood work had shown hemoglobin of 6.5 g/dL as outpatient. The patient states that she did not notice any obvious bleeding. Her paracentesis was not done and the patient was referred to the ER. The serum creatinine was at 1.7 mg/dL. Review of previous labs shows creatinine 1.3 on 08/21/2018 and as low as 0.9 on 08/07/2018. At home, patient is supposed to be on Aldactone, however, she states she has not been taking it. Patient denies use of nonsteroidal anti-inflammatory agents. Her blood pressure has been on the lower side with systolic 99-102 mmHg. No history of use of NSAIDs. The patient states she has been voiding. The serum sodium was 125 on admission. It is now up to 127. Potassium is at 5.5. The patient has received a dose of albumin. She is maintained on Lasix 60 mg p.o. daily. PAST MEDICAL HISTORY: Alcoholic liver disease, portal hypertension, recurrent ascites, history of Willie-en-Y gastric bypass surgery. PAST SURGICAL HISTORY: Gastric bypass surgery. SOCIAL HISTORY: Patient is a daily smoker. No history of drug abuse. MEDICATIONS AT HOME: Prior to admission, Lasix, Aldactone, vitamin B, Benadryl, multivitamins. ALLERGIES: None. REVIEW OF SYSTEMS: As per HPI. Other systems negative. EXAMINATION: Patient is comfortable, awake, alert, oriented x3, not in any acute distress. Blood pressure this morning was 103/52, initially it was 98/51 as well. Patient is afebrile. Heart rate about 70-68 per minute. The patient is awake, alert, oriented x3. Examination of the heart: S1, S2. Examination of the lungs: Bilateral breath sounds are heard. Decreased breath sounds at bases. No crackles or wheezing is heard. Abdomen is soft, nontender. Ascites is noted. Examination of the lower extremity shows no evidence of edema. ROOFER METAL exam is grossly intact. LABS: Sodium 127, potassium 5.5, chloride 104, CO2 is 18, BUN 52, serum creatinine 1.68. INR was 1.2, hemoglobin 6.6 g/dL. Stool for occult blood was positive. Iron saturation was at 16%. CO2 was 18, sodium 127, potassium 5.5. ASSESSMENT: 1. Acute kidney injury secondary to severe anemia and most likely underlying prerenal state. The patient has received IV fluid boluses. Her blood pressure remains slightly on the lower side. However, patient has been voiding. She is maintained on oral Lasix which we can continue and I will add normal saline at about 60 mL an hour. The cause of the acute kidney injury is also secondary to hypoperfusion given the low blood pressures. 2. Hyponatremia secondary to chronic liver disease and underlying portal hypertension. The patient does have ascites. She is maintained on oral Lasix which I will continue. Serum sodium has improved slightly with the normal saline and I will start 50 mL an hour of saline and we will repeat labs in a.m. 3. Hyperkalemia associated with acute kidney injury and GI bleed, currently improved. 4. Severe anemia with stool positive for occult blood, awaiting further decision from GI standpoint. The patient has received packed RBCs. 5. Metabolic acidosis secondary to renal failure. PLAN: Start saline at 60 mL an hour. Repeat labs in a.m. Avoid hypotension. Consider adding midodrine to help with the blood pressure if blood pressure remains low. I will hold off on the Aldactone for now given the hyperkalemia. Start patient on sodium bicarb if the acidosis is not improved. Thank you for this consultation. We will continue to follow the patient with you during her hospitalization. BILLY / AYLAN: [id number] /
[2018-08-29 20:21] LABS: Anisocytosis Slight; Basophils % (A) 0 %; Eosinophils # (A) 0.1 k/uL (0-0.7); Eosinophils % (A) 3 %; HCT 20.6 % (34.0-46.0); Hypochromasia Slight; Lymphocytes # (A) 1.1 k/uL (1.0-4.8); Lymphocytes % (A) 24 %; MCH 27.2 pg (25.0-35.0); MCHC 32.1 g/dL (31.0-37.0); MCV 84.6 fL (80.0-100.0); Mean Platelet Volume 7.1; Monocytes # (A) 0.4 k/uL (0-1.0); Monocytes % (A) 10 %; Neutrophils # (A) 2.8 k/uL (1.3-7.7); Neutrophils % (A) 61 %; Platelet Count 154 k/uL (150-450); RBC 2.44 m/uL (3.80-5.40); RDW 16.8 % (11.5-15.5); WBC 4.7 k/uL (3.8-10.6)
[2018-08-29 20:23] LABS: HGB 6.6 gm/dL (11.4-16.0)
[2018-08-30 06:44] LABS: Anisocytosis Slight; Basophils % (A) 1 %; Eosinophils # (A) 0.2 k/uL (0-0.7); Eosinophils % (A) 4 %; HCT 20.9 % (34.0-46.0); Hypochromasia Moderate; Lymphocytes # (A) 1.3 k/uL (1.0-4.8); Lymphocytes % (A) 36 %; MCH 27.1 pg (25.0-35.0); MCV 84.7 fL (80.0-100.0); Mean Platelet Volume 7.5; Monocytes # (A) 0.4 k/uL (0-1.0); Monocytes % (A) 11 %; Neutrophils # (A) 1.7 k/uL (1.3-7.7); Neutrophils % (A) 46 %; Platelet Count 150 k/uL (150-450); RBC 2.47 m/uL (3.80-5.40); RDW 16.6 % (11.5-15.5); WBC 3.7 k/uL (3.8-10.6)
[2018-08-30 06:57] LABS: HGB 6.7 gm/dL (11.4-16.0)
--- NOTE | 2018-08-30 10:37 | P.PN ---
Subjective Progress Note Date: 08/30/18 Patient having difficulty tolerating full bowel prep she did have a half of GoLYTELY has had multiple episodes of loose stools. The patient did have ultrasound-guided paracentesis yesterday with approximately 8 L of serous fluid aspirated. No acute events overnight patient afebrile. He did receive the second of 2 units of packed RBCs hemoglobin still only 6.6g Objective - Vital Signs Vital signs: Vital Signs Temp 98.2 F 08/30/18 08:00 Pulse 71 08/30/18 08:00 Resp 18 08/30/18 08:00 BP 98/56 08/30/18 08:00 Pulse Ox 100 08/30/18 08:00 Intake & Output 08/29/18 08/30/18 08/30/18 18:59 06:59 18:59 Intake Total 570 210 110 Output Total 8000 Balance -7430 210 110 Weight 112.4 kg Intake: IV 230 10 10 Invasive Line 3 30 10 10 Sodium Chloride 0.9% 1, 200 000 ml @ 100 mls/hr IV . Q10H ONE Rx#:[id number] Intake, IV Titration 200 100 Amount Sodium Chloride 0.9% 1, 200 100 000 ml @ 50 mls/hr IV . Q20H DOMINIQUE Rx#:[id number] Oral 30 Blood Product 310 Rc As-1 Unit 310 [id number] Output: Other 8000 Other: Voiding Method Toilet Toilet Toilet # Voids 1 1 - Exam Constitutional: No acute distress, conversant, pleasant Eyes: Anicteric sclerae, moist conjunctiva, no lid-lag, PERRLA ENMT: NC/AT,Oropharynx clear, no erythema, exudates Neck:Supple, FROM, no masses, or JVD, No carotid bruits; No thyromegaly Lungs: Clear to auscultation, Clear to percussion, Normal respiratory effort, no accessory muscle use Cardiovascular: Heart regular in rate and rhythm, No murmurs, gallops, or rubs no peripheral edema Abdominal: Soft Nontender, distended secondary to ascites, no guarding, no rebound or rigidity, Normoactive bowel sounds No hepatomegaly, No splenomegaly , No palpable mass No abdominal wall hernia noted Skin: Normal temperature, tone, texture, turgor, No induration No subcutaneous nodules, No rash, lesions, No ulcers Extremities:No digital cyanosis No clubbing, Pedal pulses intact and symmetrical Radial pulses intact and symmetrical Normal gait and station, No calf tenderness Psychiatric: Alert and oriented to person, place and time, Appropriate affect Intact judgement Neuro: Muscles Strength 5/5 in all 4 extremities, Sensation to light touch grossly present throughout, Cranial nerves II-XII grossly intact. No focal sensory deficits - Labs CBC & Chem 7: 08/30/18 05:49 08/30/18 05:49 Labs: Abnormal Lab Results - Last 24 Hours (Table) 08/28/18 08/29/18 08/29/18 Range/Units 15:52 00:48 19:28 WBC (3.8-10.6) k/uL RBC 2.44 L (3.80-5.40) m/uL Hgb 6.6 L* (11.4-16.0) gm/dL Hct 20.6 L (34.0-46.0) % RDW 16.8 H (11.5-15.5) % Iron 42 L (50-170) ug/dL Crossmatch See Detail 08/30/18 Range/Units 05:49 WBC 3.7 L (3.8-10.6) k/uL RBC 2.47 L (3.80-5.40) m/uL Hgb 6.7 L* (11.4-16.0) gm/dL Hct 20.9 L (34.0-46.0) % RDW 16.6 H (11.5-15.5) % Iron (50-170) ug/dL Crossmatch Assessment and Plan (1) GI bleed Narrative/Plan: * GI consultation pending, * Patient's blood pressure borderline received a total of 2 unit of packed RBCs yesterday today Hg 6.6 indicating inadequate response possible ongoing bleeding , we'll type and cross and transfuse 1 more unit prior to procedure * continue to follow sequential CBCs checks * Continue PPI therapy with IV Protonix Current Visit: Yes Status: Acute Code(s): K92.2 - GASTROINTESTINAL HEMORRHAGE, UNSPECIFIED SNOMED Code(s): 50440925 (2) Acute blood loss anemia Narrative/Plan: * Secondary to problem above * Iron studies ordered and pending Current Visit: Yes Status: Acute Code(s): D62 - ACUTE POSTHEMORRHAGIC ANEMIA SNOMED Code(s): 575176557 (3) Liver cirrhosis, alcoholic Narrative/Plan: * Patient restarted on lactulose and Lasix Current Visit: Yes Status: Acute Code(s): K70.30 - ALCOHOLIC CIRRHOSIS OF LIVER WITHOUT ASCITES SNOMED Code(s): 412666840 (4) Ascites Narrative/Plan: * Is status post ultrasound-guided abdominal paracentesis * Approximately 8 L of fluid aspirated Current Visit: Yes Status: Acute Code(s): R18.8 - OTHER ASCITES SNOMED Code(s): 127106863 (5) Acute kidney injury Narrative/Plan: * Nephrology consulted * Suspect prerenal etiology due to ongoing hypoperfusion patient also hypotensive due to GI bleed possibly hepatorenal syndrome * Creatinine continues to improve and trending down at 1.46 today * Hyperkalemia now resolved Current Visit: Yes Status: Acute Code(s): N17.9 - ACUTE KIDNEY FAILURE, UNSPECIFIED SNOMED Code(s): 56776656 (6) Hyponatremia Narrative/Plan: * Secondary to chronic liver disease with alcoholic liver cirrhosis, likely portal hypertension and ascites * Continues to improve and daily now up to 129 Current Visit: No Status: Acute Code(s): E87.1 - HYPO-OSMOLALITY AND HYPONATREMIA SNOMED Code(s): 09985930
[2018-08-30 11:04] LABS: Albumin 2.5 g/dL (3.5-5.0); Potassium 4.2 mmol/L (3.5-5.1); Total Bilirubin 1.4 mg/dL (0.2-1.3); Total Protein 5.1 g/dL (6.3-8.2)
[2018-08-30] MEDS ORDERED: LIDOCAINE 1% INJ 10MG/ML (20 ML MDV) ONE (12:13)
[2018-08-30] MEDS ORDERED: ETOMIDATE 2 MG/ML 10 ML VIAL ONE (12:13)
[2018-08-30] MEDS ORDERED: MIDAZOLAM 2 MG/2 ML VIAL ONE (12:13)
[2018-08-30] MEDS ORDERED: PROPOFOL 10 MG/ML 20 ML VIAL IV ONE (12:13)
[2018-08-30] MEDS ORDERED: ONDANSETRON 4 MG/2 ML VIAL ONE (12:13)
[2018-08-30] MEDS ORDERED: IV FLUID CONTINUATION 1,000 ML IV ONE (12:17)
[2018-08-30] MEDS: THIAMINE 100 MG TAB PO SCH (13:49)
[2018-08-30] MEDS: PANTOPRAZOLE 40 MG/10 ML VIAL IVP SCH ×2 (13:49→20:42)
[2018-08-30] MEDS: SODIUM CHLORIDE 0.9% 1,000 ML IV SCH (13:49)
[2018-08-30] MEDS: MULTIVITAMINS, THERA 1 EACH TAB PO SCH (13:49)
[2018-08-30] MEDS: FUROSEMIDE 20 MG TAB PO SCH (13:49)
[2018-08-30] MEDS: GABAPENTIN 100 MG CAP PO SCH ×3 (13:49→20:42)
[2018-08-30] MEDS: MIDODRINE 5 MG TAB PO SCH ×2 (13:49→15:51)
--- NOTE | 2018-08-30 13:52 | P.PCN ---
Date of Procedure: 08/30/18 Description of Procedure: Brief history: 48-year-old female well-known to Dr. Devine's practice with a past history of Willie-en-Y gastric bypass 2002, alcohol liver cirrhosis chronic ascites portal hypertension requiring multiple paracentesis. Patient was scheduled for outpatient paracentesis yesterday however CBC indicated drop in hemoglobin 6.8. Previous hemoglobin and Bing was 9.9. Patient received a unit of blood last night and present hemoglobin is 6.6. She is scheduled to receive an additional unit. MCV 84. Platelet 179. INR 1.1-1.2. FOBT positive. Procedure performed: Esophagogastroduodenoscopy with argon plasma coagulation, variceal banding and biopsy Colonoscopy Estimated blood loss: Minimal. Preoperative diagnosis: Cirrhosis, anemia of acute blood loss Anesthesia: MAC Procedure: After informed consent was obtained from the patient was brought into the endoscopy unit and IV sedation was administered by anesthesia under continuous monitoring. Initially upper endoscopy was done. The Olympus GF 190 video endoscope was inserted inserted into the mouth and esophagus intubated without any difficulty and was gradually advanced into the gastric remnant where mild erythema was noted which was biopsied. The patient had postsurgical findings as she has a history of Willie-en-Y. The small bowel was intubated and a small nonbleeding AVM was noted which was treated with APC. The blind limb of the Willie-en-Y was normal. The scope was withdrawn into the esophagus where small gastric varices were noted, the red spot suggestive of high risk for bleeding was noted on one of the columns of varices and banding was performed. 4 bands were successfully placed on the varices. At this time the patient continued to remain sedation. Initial digital rectal examination was normal. Olympus CF 190 video colonoscope was then inserted into the rectum and gradually advanced to the cecum without any difficulty. Careful examination was performed as the scope was gradually being withdrawn. The prep was fair. The cecum, ascending colon, transverse colon, descending colon, sigmoid colon and rectum appeared normal. Retroflexion was performed in the rectum and no lesions were noted. Patient tolerated the procedure well. Impression: 1. Gastritis noted in the gastric remnant, biopsied. Postsurgical changes consistent with prior history of Willie-en-Y surgery noted. Small bowel AVM treated with APC. Banding of small esophageal varices due to high risk stigmata. 2. Normal colonoscopy, however prep was fair. Recommendations: Findings of this examination were discussed with the patient. Continue PPI therapy. Okay for liquid today and can likely advanced to full liquids tomorrow. Okay for pills. Continue low-sodium diet given history of cirrhosis. Continue to monitor hemoglobin and transfuse as needed. Patient will need follow-up with Dr. Devine of the gastroenterology service and repeat EGD for obliteration of varices in the outpatient setting. In addition patient was informed that due to the fair prep should have a repeat colonoscopy in one year.
--- NOTE | 2018-08-30 23:47 | PN ---
PROGRESS NOTE The patient is seen for followup for acute kidney injury, hyponatremia and hyperkalemia. The patient was admitted with significant anemia, hemoglobin of 6.3 and GI bleed. She did have an EGD done this morning along with colonoscopy and the EGD showed bleeding esophageal varices. PHYSICAL EXAMINATION: This afternoon, blood pressure was 89/50, heart rate 67 per minute. Patient is afebrile. Examination of the heart S1, S2. Examination of the lungs bilateral breath sounds are heard. Abdomen is soft, nontender. Obese. Examination of lower extremities shows no evidence of edema. LAB: Show sodium 129, potassium 4.2, BUN of 46, serum creatinine down to 1.46, hemoglobin was 6.7 g/dL. ASSESSMENT: 1. Acute kidney injury secondary to acute anemia and hypotension and hypoperfusion, improved with IV fluids. 2. Hyponatremia associated with chronic liver disease, underlying portal hypertension and prerenal state with some degree of intravascular volume depletion, currently improved with normal saline. 3. Hyperkalemia associated with acute kidney injury and gastrointestinal bleed, now improved. 4. Acute gastrointestinal bleed status post EGD which showed bleeding esophageal varices. 5. Chronic liver disease, most likely alcoholic liver disease with portal hypertension. 6. Metabolic acidosis secondary to renal failure. PLAN: Continue with normal saline. Repeat labs in a.m. I will decrease the dose of Lasix depending upon her volume status and renal profile tomorrow. MMODL / IJN: [id number] /
[2018-08-31] MEDS: MIDODRINE 5 MG TAB PO SCH ×3 (06:37→17:37)
[2018-08-31 08:16] LABS: Anisocytosis Slight; Basophils % (A) 0 %; Eosinophils # (A) 0.2 k/uL (0-0.7); Eosinophils % (A) 3 %; HCT 22.7 % (34.0-46.0); HGB 7.3 gm/dL (11.4-16.0); Hypochromasia Slight; Lymphocytes # (A) 1.4 k/uL (1.0-4.8); Lymphocytes % (A) 26 %; MCV 84.6 fL (80.0-100.0); Mean Platelet Volume 7.7; Monocytes # (A) 0.6 k/uL (0-1.0); Monocytes % (A) 10 %; Neutrophils # (A) 3.2 k/uL (1.3-7.7); Neutrophils % (A) 59 %; Platelet Count 168 k/uL (150-450); Poikilocytosis Slight; RBC 2.68 m/uL (3.80-5.40); RDW 16.6 % (11.5-15.5); WBC 5.4 k/uL (3.8-10.6)
[2018-08-31 08:20] LABS: Calcium 7.9 mg/dL (8.4-10.2); Potassium 4.4 mmol/L (3.5-5.1)
[2018-08-31] MEDS: SODIUM CHLORIDE 0.9% 1,000 ML IV SCH (09:38)
[2018-08-31] MEDS: PANTOPRAZOLE 40 MG/10 ML VIAL IVP SCH ×2 (09:40→20:43)
[2018-08-31] MEDS: GABAPENTIN 100 MG CAP PO SCH ×3 (09:40→20:43)
[2018-08-31] MEDS ORDERED: MIDODRINE 5 MG TAB PO STA (10:07)
[2018-08-31] MEDS: FUROSEMIDE 20 MG TAB PO SCH (10:09)
--- NOTE | 2018-08-31 12:07 | PN ---
PROGRESS NOTE Patient is seen for followup for hyponatremia, hyperkalemia and acute kidney injury. Renal function had improved initially with IV fluids with creatinine down to 1.4 yesterday from 1.6. However, this morning it is back up to 1.73. The patient had colonoscopy and EGD yesterday. Blood pressure has been running low and midodrine was started. Patient has been voiding well. Her sodium has improved with saline and potassium has also improved. She was found to have bleeding esophageal varices. Hemoglobin is up to 7.3 this morning. PHYSICAL EXAMINATION: On examination today, blood pressure 91/46, heart rate 67 per minute. She is afebrile. Examination of the heart, S1, S2. Examination of the lungs, bilateral breath sounds are heard. Abdomen is soft, obese, nontender. Examination of the lower extremities shows no evidence of edema. XM1 TANK DRIVER exam is grossly intact. LABS: Show sodium 130, potassium 4.4, BUN 40, serum creatinine 1.73, potassium 4.4 with hemoglobin 7.3 g/dL. ASSESSMENT: 1. Acute kidney injury, mainly prerenal associated with hypotension as well. I will continue with IV fluids. Hold off on the Lasix and repeat labs in a.m. 2. Metabolic acidosis. Add oral sodium bicarb. 3. Chronic liver disease with portal hypertension, recurrent ascites, status post paracentesis. 4. Hyponatremia, which was hypovolemic currently improved with normal saline. 5. Hyperkalemia associated with acute kidney injury, now resolved associated with acute kidney injury and GI bleed, now resolved. PLAN: Add oral sodium bicarb. Continue with midodrine. Increase IV fluids. Repeat labs in a.m.. MMODL / IJN: [id number] /
[2018-08-31] MEDS: MULTIVITAMINS, THERA 1 EACH TAB PO SCH (12:58)
[2018-08-31] MEDS: THIAMINE 100 MG TAB PO SCH (12:58)
[2018-08-31] MEDS: SODIUM BICARBONATE TAB 650 MG TAB PO SCH ×2 (12:59→20:43)
--- NOTE | 2018-08-31 14:59 | P.PN ---
Subjective Progress Note Date: 08/31/18 Patient is doing fairly well today. No evidence of ongoing bleed. She did not have a bowel movement today or yesterday. she is tolerating liquid diet with no difficulty. Objective - Vital Signs Vital signs: Vital Signs Temp 98 F 08/31/18 12:00 Pulse 74 08/31/18 12:00 Resp 16 08/31/18 12:00 BP 99/48 08/31/18 12:00 Pulse Ox 100 08/31/18 12:00 Intake & Output 08/30/18 08/31/18 08/31/18 18:59 06:59 18:59 Intake Total 2997 990 Balance 2997 990 Weight 112.4 kg 115.8 kg Intake: IV 910 Invasive Line 3 10 Sodium Chloride 0.9% 1, 400 000 ml @ 70 mls/hr IV . [id number] [facility] Rx#:[id number] Intake, IV Titration 100 400 Amount IV Fluid Continuation 1, 400 000 ml @ 0 mls/hr IV .[facility]K -[facility] Rx#:[id number] Sodium Chloride 0.9% 1, 100 000 ml @ 70 mls/hr IV . [id number] [facility] Rx#:[id number] Oral 1677 590 Blood Product 310 Rc As-1 Unit 310 [id number] Other: Voiding Method Toilet Toilet Toilet # Voids 1 1 1 - Exam General: The patient is awake and alert, in no distress Eye: there is normal conjunctiva bilaterally. Cardiovascular: Normal S1-S2, no S3-S4, no murmurs. Respiratory: Lungs clear to auscultation bilaterally Gastrointestinal: Abdomen is soft, nontender Musculoskeletal: There is no pedal edema. Neurological:. Speech is normal. Skin: Skin is warm and dry - Labs CBC & Chem 7: 08/31/18 06:28 08/31/18 06:28 Labs: Abnormal Lab Results - Last 24 Hours (Table) 08/28/18 08/31/18 08/31/18 Range/Units 15:52 06:28 06:28 RBC 2.68 L (3.80-5.40) m/uL Hgb 7.3 L (11.4-16.0) gm/dL Hct 22.7 L (34.0-46.0) % RDW 16.6 H (11.5-15.5) % Sodium 130 L (137-145) mmol/L Carbon Dioxide 16 L (22-30) mmol/L BUN 40 H (7-17) mg/dL Creatinine 1.73 H (0.52-1.04) mg/dL Calcium 7.9 L (8.4-10.2) mg/dL Crossmatch See Detail Assessment and Plan Assessment: 1. Upper GI bleed, status post EGD and colonoscopy. EGD with variceal bleed status post banding authorization to small bowel AVM. Colonoscopy was suboptimal preparation recommend to repeat C scope in 1 year. 2. Acute blood loss anemia, status post 4 units of PRBC transfusion since admission. Hemoglobin now stabilized around 7.3 3. Alcoholic liver cirrhosis 4. Acute kidney injury, secondary to hypotension and intravascular depletion, nephrology following closely. IV fluid hydration. Avoid nephrotoxins. 5. History of alcohol abuse now sober since November 6. Chronic hyponatremia secondary to underlying liver cirrhosis 7. Recurrent ascites, status post paracentesis with 8 L of fluid removed during this admission. Diuretics on hold currently secondary to acute kidney injury Today, I reviewed her medication list and lab work results. Continue current regimen. Appreciate neuropsychology medical consultant's recommendations. Repeat lab work in the morning.
[2018-09-01] MEDS: SODIUM CHLORIDE 0.9% 1,000 ML IV SCH (05:42)
[2018-09-01 06:33] LABS: Anisocytosis Slight; Basophils % (A) 0 %; Eosinophils # (A) 0.2 k/uL (0-0.7); Eosinophils % (A) 3 %; HCT 24.2 % (34.0-46.0); HGB 7.8 gm/dL (11.4-16.0); Hypochromasia Slight; Lymphocytes # (A) 1.5 k/uL (1.0-4.8); Lymphocytes % (A) 21 %; MCH 27.5 pg (25.0-35.0); MCHC 32.1 g/dL (31.0-37.0); MCV 85.7 fL (80.0-100.0); Mean Platelet Volume 7.1; Monocytes # (A) 0.7 k/uL (0-1.0); Monocytes % (A) 10 %; Neutrophils # (A) 4.6 k/uL (1.3-7.7); Neutrophils % (A) 65 %; Platelet Count 186 k/uL (150-450); RBC 2.82 m/uL (3.80-5.40); RDW 16.9 % (11.5-15.5)
[2018-09-01] MEDS: MIDODRINE 5 MG TAB PO SCH ×3 (06:44→17:09)
[2018-09-01 06:51] LABS: Albumin 2.3 g/dL (3.5-5.0); Calcium 7.7 mg/dL (8.4-10.2); Potassium 4.7 mmol/L (3.5-5.1); Total Protein 4.9 g/dL (6.3-8.2)
--- NOTE | 2018-09-01 06:55 | P.PN ---
Subjective Progress Note Date: 08/31/18 Principal diagnosis: Acute GI bleed, anemia of acute blood loss Patient feeling well. No signs or symptoms of GI bleeding. Asking for diet to be advanced. Objective - Vital Signs Vital signs: Vital Signs Temp 98.5 F 08/31/18 20:00 Pulse 67 09/01/18 03:15 Resp 17 09/01/18 03:15 BP 101/55 09/01/18 03:15 Pulse Ox 100 09/01/18 03:15 Intake & Output 08/31/18 08/31/18 09/01/18 06:59 18:59 06:59 Intake Total 1220 1160 Output Total 200 200 Balance 1020 960 Weight 115.8 kg 119.4 kg Intake: Intake, IV Titration 400 560 Amount IV Fluid Continuation 1, 400 000 ml @ 0 mls/hr IV .[facility] Rx#:[id number] Sodium Chloride 0.9% 1, 560 000 ml @ 70 mls/hr IV . [id number] [facility] Rx#:[id number] Oral 820 600 Output: Urine 200 200 Other: Voiding Method Toilet Toilet Toilet # Voids 1 3 1 - Exam On physical examination, patient appears comfortable in no apparent distress. HEAD: Normocephalic, atraumatic. EYES: No scleral icterus. No conjunctival injection. MOUTH: No lesions, tongue midline. NECK: Trachea midline, no gross abnormalities. CHEST: Clear to auscultation with no wheezing or rhonchi appreciated. HEART: Regular rate and rhythm. ABDOMEN: Soft, obese. Bowel sounds are positive. No organomegaly. No guarding or rigidity. EXTREMITIES: No pedal edema. SKIN: No rashes, no jaundice. NEUROLOGIC: Alert and oriented x3. No focal deficits. - Labs CBC & Chem 7: 09/01/18 05:49 08/31/18 06:28 Labs: Abnormal Lab Results - Last 24 Hours (Table) 08/28/18 08/31/18 08/31/18 Range/Units 15:52 06:28 06:28 RBC 2.68 L (3.80-5.40) m/uL Hgb 7.3 L (11.4-16.0) gm/dL Hct 22.7 L (34.0-46.0) % RDW 16.6 H (11.5-15.5) % Sodium 130 L (137-145) mmol/L Carbon Dioxide 16 L (22-30) mmol/L BUN 40 H (7-17) mg/dL Creatinine 1.73 H (0.52-1.04) mg/dL Calcium 7.9 L (8.4-10.2) mg/dL Crossmatch See Detail Assessment and Plan (1) Acute blood loss anemia Narrative/Plan: Endoscopic evaluation significant for nonbleeding esophageal varices which didn' t present with high risk stigmata and were banded, a nonbleeding small bowel AVM which was treated with APC and gastritis in the gastric remnant (patient is status post Willie-en-Y surgery). Current Visit: Yes Status: Acute Code(s): D62 - ACUTE POSTHEMORRHAGIC ANEMIA SNOMED Code(s): 860492560 (2) GI bleed Narrative/Plan: Likely secondary to bleeding AVM given the patient's absence of signs or symptoms of GI bleed. Current Visit: Yes Status: Acute Code(s): K92.2 - GASTROINTESTINAL HEMORRHAGE, UNSPECIFIED SNOMED Code(s): 05537243 (3) Liver cirrhosis, alcoholic Narrative/Plan: Decompensated alcoholic cirrhosis in a patient with a known history of a site and findings of small esophageal varices on EGD. Current Visit: Yes Status: Acute Code(s): K70.30 - ALCOHOLIC CIRRHOSIS OF LIVER WITHOUT ASCITES SNOMED Code(s): 698735822 (4) Stool guaiac positive Current Visit: Yes Status: Acute Code(s): R19.5 - OTHER FECAL ABNORMALITIES SNOMED Code(s): 40407426 Plan: Supportive care Monitor hemoglobin and transfuse as needed Continue Protonix therapy Diet advanced to GI soft today Low-sodium diet recommended Continue diuretic therapy Okay for discharge if patient remains hemodynamically stable, with no signs or symptoms of bleeding Follow up with gastroenterology in the outpatient setting as previously scheduled Thank you for allowing us to speak in the care of this patient
[2018-09-01] MEDS: GABAPENTIN 100 MG CAP PO SCH ×3 (08:42→22:23)
[2018-09-01] MEDS: PANTOPRAZOLE 40 MG/10 ML VIAL IVP SCH ×2 (08:42→20:26)
[2018-09-01] MEDS: SODIUM BICARBONATE TAB 650 MG TAB PO SCH ×2 (08:42→20:26)
[2018-09-01] MEDS: THIAMINE 100 MG TAB PO SCH (08:42)
[2018-09-01] MEDS: MULTIVITAMINS, THERA 1 EACH TAB PO SCH (08:42)
--- NOTE | 2018-09-01 09:55 | P.PN ---
Subjective Progress Note Date: 09/01/18 Seen and examined for the follow-up of acute kidney injury and hyponatremia. She has history of liver cirrhosis and had paracentesis on 08/29/2018 and 8 L of fluid was removed. She admits decreased urine output. No nausea vomiting or diarrhea. Renal functions continue to worsen. Objective - Vital Signs Vital signs: Vital Signs Temp 96.9 F L 09/01/18 08:47 Pulse 64 09/01/18 08:47 Resp 18 09/01/18 08:47 BP 95/46 09/01/18 08:47 Pulse Ox 97 09/01/18 08:47 Intake & Output 08/31/18 09/01/18 09/01/18 18:59 06:59 18:59 Intake Total 1220 1160 Output Total 200 200 Balance 1020 960 Weight 119.4 kg Intake: Intake, IV Titration 400 560 Amount IV Fluid Continuation 1, 400 000 ml @ 0 mls/hr IV .STK -[facility] Rx#:[id number] Sodium Chloride 0.9% 1, 560 000 ml @ 70 mls/hr IV . [id number] [facility] Rx#:[id number] Oral 820 600 Output: Urine 200 200 Other: Voiding Method Toilet Toilet Toilet # Voids 3 1 - Exam No acute distress lying in bed S1-S2 heard Lungs clear Abdomen soft Edema - Labs CBC & Chem 7: 09/01/18 05:49 09/01/18 05:49 Labs: Abnormal Lab Results - Last 24 Hours (Table) 09/01/18 09/01/18 Range/Units 05:49 05:49 RBC 2.82 L (3.80-5.40) m/uL Hgb 7.8 L (11.4-16.0) gm/dL Hct 24.2 L (34.0-46.0) % RDW 16.9 H (11.5-15.5) % Sodium 128 L (137-145) mmol/L Carbon Dioxide 16 L (22-30) mmol/L BUN 40 H (7-17) mg/dL Creatinine 2.01 H (0.52-1.04) mg/dL Calcium 7.7 L (8.4-10.2) mg/dL Total Protein 4.9 L (6.3-8.2) g/dL Albumin 2.3 L (3.5-5.0) g/dL Assessment and Plan Assessment: #1 acute kidney injury suspect hemodynamic ATN. Check urine analysis and urine sodium to rule out hepatorenal syndrome. #2 metabolic acidosis secondary to acute kidney injury #3 hypervolemic hyponatremia #4 chronic liver disease status post paracentesis #5 hyperkalemia resolved #6 hypotension on midodrine Plan: #1 stop normal saline and start Lasix 40 mg IV twice a day. #2 check urine analysis and urine sodium to rule out HRS #3 continue with midodrine 10 mg 3 times a day. If her pressure is still low increase it to 15 mg 3 times a day. #4 avoid nephrotoxic agents and hypotensive episodes #5 labs in the morning
[2018-09-01] MEDS: FUROSEMIDE 10 MG/ML 4 ML VIAL IV SCH ×2 (11:25→20:26)
--- NOTE | 2018-09-01 11:44 | P.PN ---
Subjective Progress Note Date: 09/01/18 Patient is doing fairly well today. No evidence of ongoing bleed. No acute events overnight reported by nursing staff. Objective - Vital Signs Vital signs: Vital Signs Temp 96.9 F L 09/01/18 08:47 Pulse 64 09/01/18 11:17 Resp 18 09/01/18 11:17 BP 95/46 09/01/18 08:47 Pulse Ox 97 09/01/18 08:47 Intake & Output 08/31/18 09/01/18 09/01/18 18:59 06:59 18:59 Intake Total 1220 1160 Output Total 200 200 Balance 1020 960 Weight 119.4 kg Intake: Intake, IV Titration 400 560 Amount IV Fluid Continuation 1, 400 000 ml @ 0 mls/hr IV .[facility] Rx#:[id number] Sodium Chloride 0.9% 1, 560 000 ml @ 70 mls/hr IV . [id number] [facility] Rx#:[id number] Oral 820 600 Output: Urine 200 200 Other: Voiding Method Toilet Toilet Toilet # Voids 3 1 - Exam General: The patient is awake and alert, in no distress Eye: there is normal conjunctiva bilaterally. Cardiovascular: Normal S1-S2, no S3-S4, no murmurs. Respiratory: Lungs clear to auscultation bilaterally Gastrointestinal: Abdomen is soft, nontender Musculoskeletal: There is no pedal edema. Neurological:. Speech is normal. Skin: Skin is warm and dry - Labs CBC & Chem 7: 09/01/18 05:49 09/01/18 05:49 Labs: Abnormal Lab Results - Last 24 Hours (Table) 09/01/18 09/01/18 Range/Units 05:49 05:49 RBC 2.82 L (3.80-5.40) m/uL Hgb 7.8 L (11.4-16.0) gm/dL Hct 24.2 L (34.0-46.0) % RDW 16.9 H (11.5-15.5) % Sodium 128 L (137-145) mmol/L Carbon Dioxide 16 L (22-30) mmol/L BUN 40 H (7-17) mg/dL Creatinine 2.01 H (0.52-1.04) mg/dL Calcium 7.7 L (8.4-10.2) mg/dL Total Protein 4.9 L (6.3-8.2) g/dL Albumin 2.3 L (3.5-5.0) g/dL Assessment and Plan Assessment: 1. Upper GI bleed, status post EGD and colonoscopy. EGD with variceal bleed status post banding also noted small bowel AVM. Colonoscopy was suboptimal preparation recommend to repeat C scope in 1 year. Diet advanced as directed by GI. Plan to follow-up in the office as directed 2. Acute blood loss anemia, status post 4 units of PRBC transfusion since admission. Hemoglobin now stabilized around 7.3 3. Alcoholic liver cirrhosis 4. Acute kidney injury, secondary to hypotension and intravascular depletion, nephrology following closely. IV fluid hydration. Avoid nephrotoxins. Midodrine 10 mg 3 times a day added to support her blood pressure. 5. History of alcohol abuse now sober since November 6. Chronic hyponatremia secondary to underlying liver cirrhosis 7. Recurrent ascites, status post paracentesis with 8 L of fluid removed during this admission. Diuretics on hold currently secondary to acute kidney injury Today, I reviewed her medication list and lab work results. Continue current regimen. Appreciate principal consultant's recommendations. Repeat lab work in the morning. Awaiting clearance from nephrology for discharge possibly on Monday
[2018-09-01 13:46] LABS: Appearance,Urine Cloudy (Clear); Bacteria,Urine Occasional /hpf; Bilirubin,Urine Negative (Negative); Blood,Urine Negative (Negative); Color,Urine Yellow; Glucose,Urine (UA) Negative (Negative); Hyaline Casts,Urine 4 /lpf (0-2); Ketones,Urine Negative (Negative); Leukocyte Esterase,Urine Large (Negative); Mucus,Urine Rare /hpf; Nitrite,Urine Negative (Negative); Protein,Urine Negative (Negative); RBC,Urine 3 /hpf (0-5); Specific Gravity,Urine 1.011 (1.001-1.035); Squamous Epithelial Cell,Urine 1 /hpf (0-4); Urobilinogen,Urine <2.0 mg/dL (<2.0); WBC,Urine 67 /hpf (0-5)
[2018-09-02] MEDS: MIDODRINE 5 MG TAB PO SCH ×3 (06:27→17:44)
[2018-09-02 07:10] LABS: Anisocytosis Slight; Basophils % (A) 0 %; Eosinophils # (A) 0.1 k/uL (0-0.7); Eosinophils % (A) 1 %; HCT 23.6 % (34.0-46.0); HGB 7.6 gm/dL (11.4-16.0); Hypochromasia Slight; Lymphocytes # (A) 1.5 k/uL (1.0-4.8); Lymphocytes % (A) 15 %; MCH 27.8 pg (25.0-35.0); MCHC 32.2 g/dL (31.0-37.0); MCV 86.3 fL (80.0-100.0); Mean Platelet Volume 7.6; Monocytes # (A) 0.6 k/uL (0-1.0); Monocytes % (A) 6 %; Neutrophils # (A) 8.2 k/uL (1.3-7.7); Neutrophils % (A) 77 %; Platelet Count 191 k/uL (150-450); RBC 2.74 m/uL (3.80-5.40); RDW 17.1 % (11.5-15.5); WBC 10.7 k/uL (3.8-10.6)
[2018-09-02 07:15] LABS: Calcium 8.1 mg/dL (8.4-10.2); Magnesium 2.2 mg/dL (1.6-2.3); Phosphorus 4.2 mg/dL (2.5-4.5); Potassium 5.2 mmol/L (3.5-5.1)
[2018-09-02] MEDS: GABAPENTIN 100 MG CAP PO SCH ×3 (08:41→23:20)
[2018-09-02] MEDS: PANTOPRAZOLE 40 MG/10 ML VIAL IVP SCH ×2 (08:41→23:20)
[2018-09-02] MEDS: THIAMINE 100 MG TAB PO SCH (08:42)
[2018-09-02] MEDS: MULTIVITAMINS, THERA 1 EACH TAB PO SCH (08:42)
[2018-09-02] MEDS: SODIUM BICARBONATE TAB 650 MG TAB PO SCH ×2 (08:42→23:20)
[2018-09-02] MEDS ORDERED: ALBUMIN HUMAN 25% 100 ML in EMPTY BAG 1 BAG IVPB ONE (10:25)
--- NOTE | 2018-09-02 10:32 | P.PN ---
Subjective Progress Note Date: 09/02/18 Seen and examined for the follow-up of acute kidney injury and hyponatremia. She has history of liver cirrhosis and had paracentesis on 08/29/2018 and 8 L of fluid was removed. No nausea vomiting or diarrhea. Renal functions continue to worsen. Objective - Vital Signs Vital signs: Vital Signs Temp 98.6 F 09/02/18 08:39 Pulse 72 09/02/18 08:51 Resp 18 09/02/18 08:51 BP 90/42 09/02/18 08:39 Pulse Ox 98 09/02/18 08:39 Intake & Output 09/01/18 09/02/18 09/02/18 18:59 06:59 18:59 Intake Total 870 Output Total 200 200 120 Balance 670 -200 -120 Weight 120.5 kg Intake: IV 350 Sodium Chloride 0.9% 1, 350 000 ml @ 70 mls/hr IV . [id number] [facility] Rx#:[id number] Oral 520 Output: Urine 200 200 120 Other: Voiding Method Toilet Toilet Toilet # Voids 1 1 - Exam No acute distress lying in bed S1-S2 heard Lungs clear Abdomen soft, distended Edema - Labs CBC & Chem 7: 09/02/18 05:55 09/02/18 05:55 Labs: Abnormal Lab Results - Last 24 Hours (Table) 08/28/18 09/01/18 09/02/18 Range/Units 15:52 13:24 05:55 WBC 10.7 H (3.8-10.6) k/uL RBC 2.74 L (3.80-5.40) m/uL Hgb 7.6 L (11.4-16.0) gm/dL Hct 23.6 L (34.0-46.0) % RDW 17.1 H (11.5-15.5) % Neutrophils # 8.2 H (1.3-7.7) k/uL Sodium (137-145) mmol/L Potassium (3.5-5.1) mmol/L Carbon Dioxide (22-30) mmol/L BUN (7-17) mg/dL Creatinine (0.52-1.04) mg/dL Glucose (74-99) mg/dL Calcium (8.4-10.2) mg/dL Urine Appearance Cloudy H (Clear) Ur Leukocyte Esterase Large H (Negative) Urine WBC 67 H (0-5) /hpf Urine WBC Clumps Few H (None) /hpf Urine Bacteria Occasional H (None) /hpf Hyaline Casts 4 H (0-2) /lpf Urine Mucus Rare H (None) /hpf Crossmatch See Detail 09/02/18 Range/Units 05:55 WBC (3.8-10.6) k/uL RBC (3.80-5.40) m/uL Hgb (11.4-16.0) gm/dL Hct (34.0-46.0) % RDW (11.5-15.5) % Neutrophils # (1.3-7.7) k/uL Sodium 127 L (137-145) mmol/L Potassium 5.2 H (3.5-5.1) mmol/L Carbon Dioxide 16 L (22-30) mmol/L BUN 45 H (7-17) mg/dL Creatinine 3.12 H (0.52-1.04) mg/dL Glucose 103 H (74-99) mg/dL Calcium 8.1 L (8.4-10.2) mg/dL Urine Appearance (Clear) Ur Leukocyte Esterase (Negative) Urine WBC (0-5) /hpf Urine WBC Clumps (None) /hpf Urine Bacteria (None) /hpf Hyaline Casts (0-2) /lpf Urine Mucus (None) /hpf Crossmatch Assessment and Plan Assessment: #1 acute kidney injury suspicious for hepatorenal syndrome based on urinary sodium less than 15. Creatinine continue to worsen. #2 metabolic acidosis secondary to acute kidney injury #3 hypervolemic hyponatremia #4 chronic liver disease status post paracentesis #5 hyperkalemia resolved #6 hypotension on midodrine Plan: #1. Discontinue Lasix and start albumin along with octreotide. She is already on midodrine. #2 check labs in the morning #3 avoid nephrotoxic agents and hypotensive episodes
[2018-09-02] MEDS: FUROSEMIDE 10 MG/ML 4 ML VIAL IV SCH (13:11)
[2018-09-02] MEDS: ALBUMIN HUMAN 25% 50 ML in EMPTY BAG 1 BAG IVPB SCH ×2 (13:13→13:44)
--- NOTE | 2018-09-02 14:35 | P.PN ---
Subjective Progress Note Date: 09/02/18 Patient is feeling fatigued today. Blood pressure remained borderline low. Her creatinine is trending up. No acute events overnight reported to me by nursing staff. Objective - Vital Signs Vital signs: Vital Signs Temp 98.6 F 09/02/18 13:22 Pulse 81 09/02/18 13:22 Resp 18 09/02/18 13:22 BP 93/44 09/02/18 13:22 Pulse Ox 98 09/02/18 13:22 Intake & Output 09/01/18 09/02/18 09/02/18 18:59 06:59 18:59 Intake Total 870 Output Total 200 200 120 Balance 670 -200 -120 Weight 120.5 kg Intake: IV 350 Sodium Chloride 0.9% 1, 350 000 ml @ 70 mls/hr IV . [id number] [facility] Rx#:[id number] Oral 520 Output: Urine 200 200 120 Other: Voiding Method Toilet Toilet Toilet # Voids 1 1 - Exam General: The patient is awake and alert, in no distress Eye: there is normal conjunctiva bilaterally. Cardiovascular: Normal S1-S2, no S3-S4, no murmurs. Respiratory: Lungs clear to auscultation bilaterally Gastrointestinal: Abdomen is soft, nontender Musculoskeletal: There is no pedal edema. Neurological:. Speech is normal. Skin: Skin is warm and dry - Labs CBC & Chem 7: 09/02/18 05:55 09/02/18 05:55 Labs: Abnormal Lab Results - Last 24 Hours (Table) 08/28/18 09/02/18 09/02/18 Range/Units 15:52 05:55 05:55 WBC 10.7 H (3.8-10.6) k/uL RBC 2.74 L (3.80-5.40) m/uL Hgb 7.6 L (11.4-16.0) gm/dL Hct 23.6 L (34.0-46.0) % RDW 17.1 H (11.5-15.5) % Neutrophils # 8.2 H (1.3-7.7) k/uL Sodium 127 L (137-145) mmol/L Potassium 5.2 H (3.5-5.1) mmol/L Carbon Dioxide 16 L (22-30) mmol/L BUN 45 H (7-17) mg/dL Creatinine 3.12 H (0.52-1.04) mg/dL Glucose 103 H (74-99) mg/dL Calcium 8.1 L (8.4-10.2) mg/dL Crossmatch See Detail Assessment and Plan Assessment: 1. Acute kidney injury, thought to be secondary to hypotension and intravascular depletion on presentation. Now more consistent with hepatorenal. nephrology following closely closely. IV fluid hydration. Avoid nephrotoxins. Midodrine 10 mg 3 times a day, octreotide, and albumin ordered by nephrology 2. Upper GI bleed on presentation, status post EGD and colonoscopy. EGD with variceal bleed status post banding also noted small bowel AVM. Colonoscopy was suboptimal preparation recommend to repeat C scope in 1 year. Diet advanced as directed by GI. Plan to follow-up in the office as directed 3. Acute blood loss anemia, status post 4 units of PRBC transfusion since admission. Hemoglobin now stabilized around 7.3 4. Alcoholic liver cirrhosis 5. History of alcohol abuse now sober since November 6. Chronic hyponatremia secondary to underlying liver cirrhosis 7. Recurrent ascites, status post paracentesis with 8 L of fluid removed during this admission. Diuretics on hold currently secondary to acute kidney injury Today, I reviewed her medication list and lab work results. Continue current regimen. Appreciate fashion consultant selling's recommendations. Repeat lab work in the morning. Awaiting kidney function to improve and clearance from nephrology for discharge.
[2018-09-02] MEDS: OCTREOTIDE 100 MCG/ML INJ SQ SCH (18:40)
[2018-09-03] MEDS: OCTREOTIDE 100 MCG/ML INJ SQ SCH ×3 (00:15→18:02)
[2018-09-03 06:29] LABS: Anisocytosis Slight; Basophils % (A) 0 %; Eosinophils # (A) 0.1 k/uL (0-0.7); Eosinophils % (A) 1 %; HCT 24.2 % (34.0-46.0); HGB 7.6 gm/dL (11.4-16.0); Hypochromasia Moderate; Lymphocytes # (A) 1.7 k/uL (1.0-4.8); Lymphocytes % (A) 16 %; MCH 27.3 pg (25.0-35.0); MCHC 31.3 g/dL (31.0-37.0); MCV 87.3 fL (80.0-100.0); Mean Platelet Volume 7.7; Monocytes # (A) 0.8 k/uL (0-1.0); Monocytes % (A) 8 %; Neutrophils # (A) 7.4 k/uL (1.3-7.7); Neutrophils % (A) 72 %; Platelet Count 166 k/uL (150-450); RBC 2.77 m/uL (3.80-5.40); RDW 17.2 % (11.5-15.5); WBC 10.2 k/uL (3.8-10.6)
[2018-09-03 06:40] LABS: Calcium 8.3 mg/dL (8.4-10.2); Magnesium 2.3 mg/dL (1.6-2.3); Phosphorus 4.8 mg/dL (2.5-4.5); Potassium 5.2 mmol/L (3.5-5.1)
[2018-09-03] MEDS: MIDODRINE 5 MG TAB PO SCH ×3 (06:42→18:01)
[2018-09-03] MEDS: PANTOPRAZOLE 40 MG/10 ML VIAL IVP SCH ×2 (09:24→20:06)
[2018-09-03] MEDS: GABAPENTIN 100 MG CAP PO SCH ×3 (09:24→20:06)
--- NOTE | 2018-09-03 09:33 | P.PN ---
Subjective Patient is seen in follow-up for acute kidney injury. Creatinine is up at 3.51 today. Patient has history of liver cirrhosis. Last paracentesis was on August 29. She 8 L removed. Oral intake is fair. She has been voiding. Diuretics are held. She is maintained on midodrine and octreotide. Patient states she gets paracentesis every Monday with 8-10 L removed. Vital signs are stable. General: The patient appeared well nourished and normally developed. HEENT: Head exam is unremarkable. Neck is without jugular venous distension. LUNGS: Lungs are clear to auscultation and percussion. Breath sounds decreased. HEART: Rate and Rhythm are regular. First and second heart sounds normal. No murmurs, rubs or gallops. ABDOMEN: Abdominal exam reveals normal bowel sounds. Distention noted. EXTREMITITES: No clubbing, cyanosis, or edema. Objective - Vital Signs Vital signs: Vital Signs Temp 98.8 F 09/03/18 04:00 Pulse 78 09/03/18 04:00 Resp 20 09/03/18 04:00 BP 94/44 09/03/18 04:00 Pulse Ox 96 09/03/18 04:00 Intake & Output 09/02/18 09/03/18 09/03/18 18:59 06:59 18:59 Intake Total 1020 221 240 Output Total 270 Balance 750 221 240 Intake: IV 240 .9 @ 20 240 Intake, IV Titration 300 Amount Albumin Human 25% 50 ml 200 In Empty Bag 1 bag @ 100 mls/hr IVPB Q1H [facility] Rx#: [id number] cefTRIAXone 1,000 mg In 100 Sodium Chloride 0.9% 50 ml @ 100 mls/hr IVPB Q24HR [facility] Rx#:[id number] Oral 480 221 240 Output: Urine 270 Other: Voiding Method Toilet Toilet # Voids 1 0 1 - Labs CBC & Chem 7: 09/03/18 06:10 09/03/18 06:10 Labs: Abnormal Lab Results - Last 24 Hours (Table) 09/03/18 09/03/18 Range/Units 06:10 06:10 RBC 2.77 L (3.80-5.40) m/uL Hgb 7.6 L (11.4-16.0) gm/dL Hct 24.2 L (34.0-46.0) % RDW 17.2 H (11.5-15.5) % Sodium 128 L (137-145) mmol/L Potassium 5.2 H (3.5-5.1) mmol/L Carbon Dioxide 15 L (22-30) mmol/L BUN 51 H (7-17) mg/dL Creatinine 3.51 H (0.52-1.04) mg/dL Glucose 110 H (74-99) mg/dL Calcium 8.3 L (8.4-10.2) mg/dL Phosphorus 4.8 H (2.5-4.5) mg/dL Assessment and Plan Plan: Assessment: 1. Acute kidney injury secondary to ATN secondary to hypotension. No proteinuria on UA. Need to rule out obstructive uropathy. There is concern for hepatorenal syndrome as well. Urine sodium was 15. Creatinine up to 3.51 today. 2. Liver cirrhosis. 3. Ascites. Patient states she gets paracentesis every Monday with 8-10 L removed. Last paracentesis on August 29. 4. Metabolic acidosis secondary to acute kidney injury. 5. Hypervolemic hyponatremia. 6. Hypotension due to underlying liver cirrhosis. Maintain on midodrine. Plan: Maintain midodrine and octreotide. Start normal saline at 50 mL an hour. I will give her 25 g of albumin before and another 25 g of albumin after her next paracentesis. Low-salt diet and 1200 mL fluid restriction. Increase oral bicarbonate to 1300 mg twice daily. Repeat electrolytes in the morning. Check renal ultrasound.
[2018-09-03 11:03] LABS: INR 1.4 (<1.2); Prothrombin Time 14.4 sec (9.0-12.0)
[2018-09-03] MEDS: MULTIVITAMINS, THERA 1 EACH TAB PO SCH (12:28)
[2018-09-03] MEDS: SODIUM BICARBONATE TAB 650 MG TAB PO SCH ×2 (12:28→20:06)
[2018-09-03] MEDS: SODIUM CHLORIDE 0.9% 1,000 ML IV SCH (12:28)
[2018-09-03] MEDS: THIAMINE 100 MG TAB PO SCH ×2 (12:28→12:29)
--- NOTE | 2018-09-03 12:32 | US ---
EXAMINATION TYPE: US kidneys/renal and bladder DATE OF EXAM: 09/03/2018 COMPARISON: None CLINICAL HISTORY: radha. EXAM MEASUREMENTS: Right Kidney: 10.8 x 5.1 x 5.1 cm Left Kidney: 9.5 x 5.2 x 5.0 cm Limited exam due to morbid obesity. Patient unable to hold her breath. Right Kidney: No hydronephrosis or nephrolithiasis seen. Limited visualization due to overlying lorenzo l gas Left Kidney: No hydronephrosis or nephrolithiasis seen/obesity. Limited visualization due to overlyi ng bowel gas/obesity. Bladder: Non distended. Limited visualization. Bilateral Jets seen: No Ascites seen. IMPRESSION: Exam limited due to overlying bowel gas. No obvious hydronephrosis or nephrolithiasis. Bladder limite dly complete distention. There is a small amount ascites
--- NOTE | 2018-09-03 14:54 | P.PN ---
Subjective Progress Note Date: 09/03/18 Principal diagnosis: fatigue and weakness Patient is a 48-year-old female with past medical history of morbid obesity, chronic tobacco abuse, and liver cirrhosis requiring recurrent paracentesis weekly who presented at the direction of her outpatient physician due to low hemoglobin on her blood work. In the ER she was found be profoundly anemic with hemoglobin of 6.8. She was also found to have slightly elevated serum potassium of 5.3 and slightly elevated creatinine at 1.1 and she was guaiac positive. She was slightly hypotensive but her blood pressures are typically that low. She was subsequently admitted for further monitoring. She was ordered 1 unit of packed red blood cells. Serial hemoglobins were monitored and she was ultimately transfused a total of 3 units of packed red blood cells. She was seen by GI and underwent EGD on 08/30 with treatment of a small bowel AVM and esophageal varices with stigmata of bleeding. She also underwent paracentesis on 08/29. She struggled with some hypotension during her hospitalization was started on Midrin. Her creatinine continued to increase and nephrology was consulted. She is a placed on Midrin, octreotide, and IV fluids. Her hemoglobin has remained stable after her EGD. Patient seen and examined at bedside. She complains of being tired. She is having shortness of breath associated with movement. She feels very distended and uncomfortable. She knows that she is due for paracentesis tomorrow and feels that she needs this or she will become even more dyspneic. She denies any nausea, vomiting, diarrhea, or constipation. All questions answered. Objective - Vital Signs Vital signs: Vital Signs Temp 97.3 F L 09/03/18 09:20 Pulse 68 09/03/18 09:20 Resp 16 09/03/18 09:20 BP 87/53 09/03/18 09:20 Pulse Ox 97 09/03/18 09:20 Intake & Output 09/02/18 09/03/18 09/03/18 18:59 06:59 18:59 Intake Total 1020 221 240 Output Total 270 Balance 750 221 240 Intake: IV 240 .9 @ 20 240 Intake, IV Titration 300 Amount Albumin Human 25% 50 ml 200 In Empty Bag 1 bag @ 100 mls/hr IVPB Q1H ON LICENSE OF [facility] Rx#: [id number] cefTRIAXone 1,000 mg In 100 Sodium Chloride 0.9% 50 ml @ 100 mls/hr IVPB Q24HR ON LICENSE OF [facility] Rx#:[id number] Oral 480 221 240 Output: Urine 270 Other: Voiding Method Toilet Toilet # Voids 1 0 1 - Exam General: non toxic,mild distress, obese, appears at stated age Derm: warm, dry Head: atraumatic, normocephalic, symmetric Eyes: EOMI, no lid lag, anicteric sclera Mouth: no lip lesion, mucus membranes moist Cardiovascular: S1S2 reg, no murmur, positive posterior tibial pulse bilateral, Lungs: CTA bilateral, no rhonchi, no rales , no accessory muscle use Abdominal: Distended, nontender to palpation, no guarding, no appreciable organomegaly Ext: no gross muscle atrophy, no edema, no contractures Neuro: CN II-XI grossly intact, no focal neuro deficits Psych: Alert, oriented, appropriate affect - Labs CBC & Chem 7: 09/03/18 06:10 09/03/18 06:10 Labs: Abnormal Lab Results - Last 24 Hours (Table) 09/03/18 09/03/18 Range/Units 06:10 06:10 RBC 2.77 L (3.80-5.40) m/uL Hgb 7.6 L (11.4-16.0) gm/dL Hct 24.2 L (34.0-46.0) % RDW 17.2 H (11.5-15.5) % Sodium 128 L (137-145) mmol/L Potassium 5.2 H (3.5-5.1) mmol/L Carbon Dioxide 15 L (22-30) mmol/L BUN 51 H (7-17) mg/dL Creatinine 3.51 H (0.52-1.04) mg/dL Glucose 110 H (74-99) mg/dL Calcium 8.3 L (8.4-10.2) mg/dL Phosphorus 4.8 H (2.5-4.5) mg/dL Assessment and Plan Assessment: Decompensated cirrhosis with ascites -Case discussed with GI -Plan is for paracentesis in the morning, will transfuse 50 g of albumin as directed by nephrology -GI recommendations -Continue with lactulose and Rocephin -Diuretic therapy on hold secondary to renal function Acute kidney injury likely secondary to hepatorenal disease -Aldactone and Lasix on hold -Patient currently admitted drip, octreotide, and sodium bicarb to help normalize metabolic acidosis -Nephrology recommendations appreciated -25 g of albumin prior to and after paracentesis -Await renal ultrasound Acute blood loss anemia with iron deficiency anemia related to esophageal varices and small AVM -Stare status post therapeutic intervention by GI -Follow CBC -We will start iron therapy on an outpatient basis Morbid obesity -Structured outpatient weight loss Hyponatremia likely related to cirrhosis, improving -Follow electrolytes daily Hypotension, resolved Upper GI bleed secondary to esophageal varices and small bowel AVM-improved DVT prophylaxis: SCDs Discussed with: Patient, nursing Anticipated discharge: 48-[address]: home A total of 45 minutes was spent on the care of this complex patient more than 50 % of the time was spent in counseling and care coordination.
[2018-09-03] MEDS ORDERED: SODIUM BICARBONATE TAB 650 MG TAB PO SCH (21:00)
--- NOTE | 2018-09-03 22:29 | P.PN ---
Subjective Progress Note Date: 09/03/18 Principal diagnosis: Acute GI bleed, anemia of acute blood loss Patient feeling well, but does report some. No signs or symptoms of GI bleeding. Reports that she has tolerated her diet well over the weekend. Objective - Vital Signs Vital signs: Vital Signs Temp 97.4 F L 09/03/18 20:00 Pulse 75 09/03/18 20:00 Resp 17 09/03/18 20:00 BP 112/58 09/03/18 20:00 Pulse Ox 100 09/03/18 20:00 Intake & Output 09/03/18 09/03/18 09/04/18 06:59 18:59 06:59 Intake Total 221 1030 Output Total 300 Balance 221 1030 -300 Intake: IV 450 Sodium Chloride 0.9% 1, 400 000 ml @ 50 mls/hr IV . Q20H [facility] Rx#:[id number] cefTRIAXone 1,000 mg In 50 Sodium Chloride 0.9% 50 ml @ 100 mls/hr IVPB Q24HR [facility] Rx#:[id number] Oral 221 580 Output: Urine 300 Other: Voiding Method Toilet Toilet Toilet # Voids 0 1 - Exam On physical examination, patient appears comfortable in no apparent distress. HEAD: Normocephalic, atraumatic. EYES: No scleral icterus. No conjunctival injection. MOUTH: No lesions, tongue midline. NECK: Trachea midline, no gross abnormalities. CHEST: Clear to auscultation the patient does appear short of breath. HEART: Regular rate and rhythm. ABDOMEN: Soft, obese, mildly distended with positive fluid wave. Bowel sounds are positive. No organomegaly. No guarding or rigidity. EXTREMITIES: No pedal edema. SKIN: No rashes, no jaundice. NEUROLOGIC: Alert and oriented x3. No focal deficits. - Labs CBC & Chem 7: 09/03/18 06:10 09/03/18 06:10 Labs: Abnormal Lab Results - Last 24 Hours (Table) 09/03/18 09/03/18 09/03/18 Range/Units 06:10 06:10 10:33 RBC 2.77 L (3.80-5.40) m/uL Hgb 7.6 L (11.4-16.0) gm/dL Hct 24.2 L (34.0-46.0) % RDW 17.2 H (11.5-15.5) % PT 14.4 H (9.0-12.0) sec INR 1.4 H (<1.2) Sodium 128 L (137-145) mmol/L Potassium 5.2 H (3.5-5.1) mmol/L Carbon Dioxide 15 L (22-30) mmol/L BUN 51 H (7-17) mg/dL Creatinine 3.51 H (0.52-1.04) mg/dL Glucose 110 H (74-99) mg/dL Calcium 8.3 L (8.4-10.2) mg/dL Phosphorus 4.8 H (2.5-4.5) mg/dL Assessment and Plan (1) Acute blood loss anemia Narrative/Plan: Endoscopic evaluation significant for nonbleeding esophageal varices without high risk stigmata and were banded, a nonbleeding small bowel AVM which was treated with APC and gastritis in the gastric remnant (patient is status post Willie-en-Y surgery). Current Visit: Yes Status: Acute Code(s): D62 - ACUTE POSTHEMORRHAGIC ANEMIA SNOMED Code(s): 501365557 (2) GI bleed Narrative/Plan: Likely secondary to bleeding AVM given the patient's absence of signs or symptoms of GI bleed. Current Visit: Yes Status: Acute Code(s): K92.2 - GASTROINTESTINAL HEMORRHAGE, UNSPECIFIED SNOMED Code(s): 44763893 (3) Liver cirrhosis, alcoholic Narrative/Plan: Decompensated alcoholic cirrhosis in a patient with a known history of ascitic fluid and findings of small esophageal varices on EGD. Current Visit: Yes Status: Acute Code(s): K70.30 - ALCOHOLIC CIRRHOSIS OF LIVER WITHOUT ASCITES SNOMED Code(s): 277318051 (4) Stool guaiac positive Current Visit: Yes Status: Acute Code(s): R19.5 - OTHER FECAL ABNORMALITIES SNOMED Code(s): 26243462 (5) Acute kidney injury Narrative/Plan: Unknown etiology may be secondary to ATN versus hepatorenal syndrome. Patient' s kidney function has worsened and she has subsequently been started on the hepatorenal cocktail. Current Visit: Yes Status: Acute Code(s): N17.9 - ACUTE KIDNEY FAILURE, UNSPECIFIED SNOMED Code(s): 21343912 Plan: Supportive care Monitor hemoglobin and transfuse as needed Continue Protonix therapy Diet advanced Low-sodium diet recommended Diuretic therapy on hold secondary to acute kidney injury Nephrology service following Octreotide and midrodrine therapy started with plans for albumin tomorrow Continue ceftriaxone therapy Follow up with gastroenterology in the outpatient setting as previously scheduled Thank you for allowing us to participate in the care of this patient
[2018-09-04] MEDS: OCTREOTIDE 100 MCG/ML INJ SQ SCH ×3 (00:06→17:08)
[2018-09-04] MEDS: SODIUM BICARBONATE TAB 650 MG TAB PO SCH ×3 (05:32→21:15)
[2018-09-04] MEDS: SODIUM CHLORIDE 0.9% 1,000 ML IV SCH (06:41)
[2018-09-04] MEDS: MIDODRINE 5 MG TAB PO SCH ×3 (06:41→17:12)
[2018-09-04 08:29] LABS: Anisocytosis Slight; Basophils % (A) 0 %; Eosinophils # (A) 0.2 k/uL (0-0.7); Eosinophils % (A) 2 %; HGB 7.2 gm/dL (11.4-16.0); Hypochromasia Moderate; Lymphocytes # (A) 1.1 k/uL (1.0-4.8); Lymphocytes % (A) 15 %; MCH 27.7 pg (25.0-35.0); MCHC 31.5 g/dL (31.0-37.0); Mean Platelet Volume 7.2; Monocytes # (A) 0.6 k/uL (0-1.0); Monocytes % (A) 8 %; Neutrophils # (A) 5.3 k/uL (1.3-7.7); Neutrophils % (A) 72 %; Platelet Count 168 k/uL (150-450); RBC 2.61 m/uL (3.80-5.40); RDW 17.1 % (11.5-15.5); WBC 7.3 k/uL (3.8-10.6)
[2018-09-04 08:37] LABS: Calcium 8.2 mg/dL (8.4-10.2)
[2018-09-04] MEDS: GABAPENTIN 100 MG CAP PO SCH ×3 (09:33→21:14)
[2018-09-04] MEDS: PANTOPRAZOLE 40 MG/10 ML VIAL IVP SCH ×2 (09:33→21:14)
[2018-09-04 10:12] VITALS: BMI 41.4
--- NOTE | 2018-09-04 10:40 | P.PN ---
Subjective Patient is seen in follow-up for acute kidney injury. Creatinine peaked at 3.51 on September 03 and is down to 2.88 today. Patient has history of liver cirrhosis. Last paracentesis was on August 29. She had 8 L removed. Oral intake is fair. She has been voiding. Diuretics are held. She is maintained on midodrine and octreotide. Patient states she gets paracentesis every Monday with 8-10 L removed. She scheduled to undergo paracentesis today. IV fluids were also started yesterday. Vital signs are stable. General: The patient appeared well nourished and normally developed. HEENT: Head exam is unremarkable. Neck is without jugular venous distension. LUNGS: Lungs are clear to auscultation and percussion. Breath sounds decreased. HEART: Rate and Rhythm are regular. First and second heart sounds normal. No murmurs, rubs or gallops. ABDOMEN: Abdominal exam reveals normal bowel sounds. Distention noted. EXTREMITITES: No clubbing, cyanosis, or edema. Objective - Vital Signs Vital signs: Vital Signs Temp 96.5 F L 09/04/18 09:30 Pulse 70 09/04/18 09:30 Resp 16 09/04/18 09:30 BP 89/51 09/04/18 09:30 Pulse Ox 100 09/04/18 09:30 Intake & Output 09/03/18 09/04/18 09/04/18 18:59 06:59 18:59 Intake Total 1030 480 Output Total 600 Balance 1030 -600 480 Weight 123.7 kg 123.7 kg Intake: IV 450 Sodium Chloride 0.9% 1, 400 000 ml @ 50 mls/hr IV . Q20H [facility] Rx#:[id number] cefTRIAXone 1,000 mg In 50 Sodium Chloride 0.9% 50 ml @ 100 mls/hr IVPB Q24HR [facility] Rx#:[id number] Oral 580 480 Output: Urine 600 Other: Voiding Method Toilet Toilet # Voids 1 - Labs CBC & Chem 7: 09/04/18 07:41 09/04/18 07:41 Labs: Abnormal Lab Results - Last 24 Hours (Table) 09/03/18 09/04/18 09/04/18 Range/Units 10:33 07:41 07:41 RBC 2.61 L (3.80-5.40) m/uL Hgb 7.2 L (11.4-16.0) gm/dL Hct 23.0 L (34.0-46.0) % RDW 17.1 H (11.5-15.5) % PT 14.4 H (9.0-12.0) sec INR 1.4 H (<1.2) Sodium 127 L (137-145) mmol/L Carbon Dioxide 16 L (22-30) mmol/L BUN 50 H (7-17) mg/dL Creatinine 2.88 H (0.52-1.04) mg/dL Glucose 106 H (74-99) mg/dL Calcium 8.2 L (8.4-10.2) mg/dL Assessment and Plan Plan: Assessment: 1. Acute kidney injury secondary to ATN secondary to hypotension/diuretics. No proteinuria on UA. No evidence of hydronephrosis on renal ultrasound. There is concern for hepatorenal syndrome as well but less likely as renal function is improving with IV hydration. Urine sodium was 15. Creatinine peaked at 3.51 on September 03 and is down to 2.88 today. 2. Liver cirrhosis. 3. Ascites. Patient states she gets paracentesis every Monday with 8-10 L removed. Last paracentesis on August 29. Scheduled for paracentesis today. 4. Metabolic acidosis secondary to acute kidney injury. 5. Hypervolemic hyponatremia. Expect improvement post paracentesis. 6. Hypotension due to underlying liver cirrhosis. Maintained on midodrine. Plan: Maintain midodrine and octreotide. Maintain normal saline at 50 mL an hour. I will give her 25 g of albumin before and another 25 g of albumin after her next paracentesis, which is scheduled for today. Low-salt diet and 1200 mL fluid restriction. Maintain oral sodium bicarbonate. Repeat electrolytes in the morning.
[2018-09-04] MEDS: ALBUMIN HUMAN 25% 50 ML in EMPTY BAG 1 BAG IVPB SCH ×4 (12:16→17:05)
--- NOTE | 2018-09-04 14:47 | P.PN ---
Subjective Progress Note Date: 09/04/18 Principal diagnosis: fatigue and weakness Patient is a 48-year-old female with past medical history of morbid obesity, chronic tobacco abuse, and liver cirrhosis requiring recurrent paracentesis weekly who presented at the direction of her outpatient physician due to low hemoglobin on her blood work. In the ER she was found be profoundly anemic with hemoglobin of 6.8. She was also found to have slightly elevated serum potassium of 5.3 and slightly elevated creatinine at 1.1 and she was guaiac positive. She was slightly hypotensive but her blood pressures are typically that low. She was subsequently admitted for further monitoring. She was ordered 1 unit of packed red blood cells. Serial hemoglobins were monitored and she was ultimately transfused a total of 3 units of packed red blood cells. She was seen by GI and underwent EGD on 08/30 with treatment of a small bowel AVM and esophageal varices with stigmata of bleeding. She also underwent paracentesis on 08/29. She struggled with some hypotension during her hospitalization was started on Midrin. Her creatinine continued to increase and nephrology was consulted. She is a placed on Midrin, octreotide, and IV fluids. Her hemoglobin has remained stable after her EGD. Her Cr started to improve on 09/04. Patient seen and examined at bedside. She complains of shortness of breath, abdominal fullness, and nausea last night. BM last evening without blood. Has not been taking lactulose at home as afraid of diarrhea. Will check ammonia in AM and consider lactulose if elevated. Spent time discussion that lactulose can be titrated base on bowel movements per day. Objective - Vital Signs Vital signs: Vital Signs Temp 96.5 F L 09/04/18 09:30 Pulse 65 09/04/18 14:25 Resp 16 09/04/18 14:25 BP 97/48 09/04/18 14:25 Pulse Ox 98 09/04/18 14:25 Intake & Output 09/03/18 09/04/18 09/04/18 18:59 06:59 18:59 Intake Total 1030 880 Output Total 600 300 Balance 1030 -600 580 Weight 123.7 kg 123.7 kg Intake: IV 450 400 Sodium Chloride 0.9% 1, 400 400 000 ml @ 50 mls/hr IV . Q20H [facility] Rx#:[id number] cefTRIAXone 1,000 mg In 50 Sodium Chloride 0.9% 50 ml @ 100 mls/hr IVPB Q24HR [facility] Rx#:[id number] Oral 580 480 Output: Urine 600 300 Other: Voiding Method Toilet Toilet Toilet # Voids 1 - Exam General: non toxic,mild distress, obese, appears at stated age Derm: warm, dry Head: atraumatic, normocephalic, symmetric Eyes: EOMI, no lid lag, anicteric sclera Mouth: no lip lesion, mucus membranes moist Cardiovascular: S1S2 reg, no murmur, positive posterior tibial pulse bilateral, Lungs: + rhonchi b/l bases, no rales , no accessory muscle use Abdominal: Distended, nontender to palpation, no guarding, no appreciable organomegaly Ext: no gross muscle atrophy, no edema, no contractures Neuro: CN II-XI grossly intact, no focal neuro deficits Psych: Alert, oriented, appropriate affect - Labs CBC & Chem 7: 09/04/18 07:41 09/04/18 07:41 Labs: Abnormal Lab Results - Last 24 Hours (Table) 09/04/18 09/04/18 Range/Units 07:41 07:41 RBC 2.61 L (3.80-5.40) m/uL Hgb 7.2 L (11.4-16.0) gm/dL Hct 23.0 L (34.0-46.0) % RDW 17.1 H (11.5-15.5) % Sodium 127 L (137-145) mmol/L Carbon Dioxide 16 L (22-30) mmol/L BUN 50 H (7-17) mg/dL Creatinine 2.88 H (0.52-1.04) mg/dL Glucose 106 H (74-99) mg/dL Calcium 8.2 L (8.4-10.2) mg/dL Assessment and Plan Assessment: Decompensated cirrhosis -Case discussed with GI -Plan is for paracentesis today, will transfuse 50g of albumin as directed by nephrology -GI recommendations -Continue with lactulose prn and Rocephin, check ammonia in AM -Diuretic therapy on hold secondary to renal function Acute kidney injury likely secondary to hepatorenal disease -Aldactone and Lasix on hold -Patient currently on midodrine octreotide, and sodium bicarb to help normalize metabolic acidosis -Nephrology recommendations appreciated -25 g of albumin prior to and after paracentesis -renal ultrasound negative Acute blood loss anemia with iron deficiency anemia related to esophageal varices and small AVM -Stare status post therapeutic intervention by GI -Follow CBC -We will start iron therapy on an outpatient basis Morbid obesity -Structured outpatient weight loss Hyponatremia likely related to cirrhosis, improving -Follow electrolytes daily Hypotension, resolved Upper GI bleed secondary to esophageal varices and small bowel AVM-improved DVT prophylaxis: SCDs Discussed with: Patient, nursing Anticipated discharge: 24-[address]: home A total of 35 minutes was spent on the care of this complex patient more than 50 % of the time was spent in counseling and care coordination.
--- NOTE | 2018-09-04 15:45 | US ---
Therapeutic paracentesis. DATE OF EXAM: 09/04/2018 CLINICAL HISTORY: Ascites The procedure was discussed with the patient. The risks, complications, benefits, and alternatives we re discussed and any questions were answered. Informed consent was obtained. The patient was placed s upine on the ultrasound table and prepped and draped in the usual sterile fashion. All elements of maximal barrier technique were utilized. Under ultrasound guidance, access into the right lower quadrant was obtained, via the paracentesis catheter system and direct ultrasound guidanc e. Approximately 7.1 liters of straw-colored fluid was removed. The patient was stable throughout the pr ocedure and remained stable upon discharge from Department of Radiology. IMPRESSION: Successful therapeutic paracentesis under ultrasound guidance.
[2018-09-04] MEDS: MULTIVITAMINS, THERA 1 EACH TAB PO SCH (17:11)
[2018-09-04] MEDS: THIAMINE 100 MG TAB PO SCH (17:12)
[2018-09-04 17:21] LABS: Appearance,BF Cloudy; Color,BF Yellow; Nucleated Cells, Body Fluid 1913 /uL; RBC, Body Fluid 2000 /uL
[2018-09-04 17:29] LABS: Mononuclear WBC,Body Fluid 20 %; Polynuclear WBC,Body Fluid 80 %; Total Cells Counted,Body Fluid 100
[2018-09-04] MEDS ORDERED: METHOCARBAMOL 750 MG TAB PO STA (18:32)
[2018-09-05] MEDS: OCTREOTIDE 100 MCG/ML INJ SQ SCH ×2 (01:30→08:49)
[2018-09-05] MEDS: SODIUM CHLORIDE 0.9% 1,000 ML IV SCH (01:31)
[2018-09-05 05:50] VITALS: BP 116/71; PULSE 70; RESP 16; TEMP 97.7
--- NOTE | 2018-09-05 07:38 | P.PN ---
Subjective Progress Note Date: 09/04/18 Principal diagnosis: Acute GI bleed, anemia of acute blood loss No acute complaints. Patient is tolerating her diet. No reports of GI bleeding. Objective - Vital Signs Vital signs: Vital Signs Temp 97.9 F 09/04/18 20:00 Pulse 68 09/04/18 20:00 Resp 19 09/04/18 20:00 BP 95/55 09/04/18 20:00 Pulse Ox 100 09/04/18 20:00 Intake & Output 09/04/18 09/04/18 09/05/18 06:59 18:59 06:59 Intake Total 880 Output Total 600 300 Balance -600 580 Weight 123.7 kg 123.7 kg Intake: IV 400 Sodium Chloride 0.9% 1, 400 000 ml @ 50 mls/hr IV . Q20H [facility] Rx#:[id number] Oral 480 Output: Urine 600 300 Other: Voiding Method Toilet Toilet Toilet # Voids 1 - Exam On physical examination, patient appears comfortable in no apparent distress. HEAD: Normocephalic, atraumatic. EYES: No scleral icterus. No conjunctival injection. MOUTH: No lesions, tongue midline. NECK: Trachea midline, no gross abnormalities. CHEST: Clear to auscultation the patient does appear short of breath. HEART: Regular rate and rhythm. ABDOMEN: Soft, obese, mildly distended with positive fluid wave. Bowel sounds are positive. No organomegaly. No guarding or rigidity. EXTREMITIES: No pedal edema. SKIN: No rashes, no jaundice. NEUROLOGIC: Alert and oriented x3. No focal deficits. - Labs CBC & Chem 7: 09/04/18 07:41 09/04/18 07:41 Labs: Abnormal Lab Results - Last 24 Hours (Table) 09/04/18 09/04/18 Range/Units 07:41 07:41 RBC 2.61 L (3.80-5.40) m/uL Hgb 7.2 L (11.4-16.0) gm/dL Hct 23.0 L (34.0-46.0) % RDW 17.1 H (11.5-15.5) % Sodium 127 L (137-145) mmol/L Carbon Dioxide 16 L (22-30) mmol/L BUN 50 H (7-17) mg/dL Creatinine 2.88 H (0.52-1.04) mg/dL Glucose 106 H (74-99) mg/dL Calcium 8.2 L (8.4-10.2) mg/dL Assessment and Plan (1) Acute blood loss anemia Narrative/Plan: Endoscopic evaluation significant for nonbleeding esophageal varices without high risk stigmata and were banded, a nonbleeding small bowel AVM which was treated with APC and gastritis in the gastric remnant (patient is status post Willie-en-Y surgery). Current Visit: Yes Status: Acute Code(s): D62 - ACUTE POSTHEMORRHAGIC ANEMIA SNOMED Code(s): 496742172 (2) GI bleed Narrative/Plan: Likely secondary to bleeding AVM given the patient's absence of signs or symptoms of GI bleed. Current Visit: Yes Status: Acute Code(s): K92.2 - GASTROINTESTINAL HEMORRHAGE, UNSPECIFIED SNOMED Code(s): 63302115 (3) Liver cirrhosis, alcoholic Narrative/Plan: Decompensated alcoholic cirrhosis in a patient with a known history of ascitic fluid and findings of small esophageal varices on EGD. Current Visit: Yes Status: Acute Code(s): K70.30 - ALCOHOLIC CIRRHOSIS OF LIVER WITHOUT ASCITES SNOMED Code(s): 303593847 (4) Stool guaiac positive Current Visit: Yes Status: Acute Code(s): R19.5 - OTHER FECAL ABNORMALITIES SNOMED Code(s): 90041967 (5) Acute kidney injury Narrative/Plan: Unknown etiology may be secondary to ATN versus hepatorenal syndrome. Patient' s kidney function has worsened and she has subsequently been started on the hepatorenal cocktail. Current Visit: Yes Status: Acute Code(s): N17.9 - ACUTE KIDNEY FAILURE, UNSPECIFIED SNOMED Code(s): 24369500 Plan: Supportive care Monitor hemoglobin and transfuse as needed Continue Protonix therapy Diet advanced Low-sodium diet recommended Diuretic therapy on hold secondary to acute kidney injury, patient had paracentesis today Nephrology service following Octreotide and midrodrine therapy started with plans for albumin today Continue ceftriaxone therapy Follow up with gastroenterology in the outpatient setting as previously scheduled Thank you for allowing us to participate in the care of this patient
[2018-09-05] MEDS: SODIUM BICARBONATE TAB 650 MG TAB PO SCH (08:48)
[2018-09-05] MEDS: PANTOPRAZOLE 40 MG/10 ML VIAL IVP SCH (08:48)
[2018-09-05] MEDS: GABAPENTIN 100 MG CAP PO SCH (08:49)
[2018-09-05 08:59] LABS: Albumin 2.6 g/dL (3.5-5.0); Magnesium 2.3 mg/dL (1.6-2.3); Potassium 4.4 mmol/L (3.5-5.1); Total Bilirubin 1.6 mg/dL (0.2-1.3); Total Protein 5.3 g/dL (6.3-8.2)
[2018-09-05] MEDS: MIDODRINE 5 MG TAB PO SCH (09:05)
--- NOTE | 2018-09-05 09:24 | P.PN ---
Subjective Patient is seen in follow-up for acute kidney injury. Creatinine peaked at 3.51 on September 03 and is down to 2.2 today. Patient has history of liver cirrhosis. Oral intake is fair. She has been voiding. Diuretics are held. She is maintained on midodrine and octreotide. Patient states she gets paracentesis every Monday with 8-10 L removed. She had paracentesis yesterday with nearly 7 L removed. She did receive albumin 50 g. IV fluids were started on September 03. Vital signs are stable. General: The patient appeared well nourished and normally developed. HEENT: Head exam is unremarkable. Neck is without jugular venous distension. LUNGS: Lungs are clear to auscultation and percussion. Breath sounds decreased. HEART: Rate and Rhythm are regular. First and second heart sounds normal. No murmurs, rubs or gallops. ABDOMEN: Abdominal exam reveals normal bowel sounds. Distention noted. EXTREMITITES: No clubbing, cyanosis, or edema. Objective - Vital Signs Vital signs: Vital Signs Temp 97.7 F 09/05/18 05:00 Pulse 70 09/05/18 05:00 Resp 16 09/05/18 05:00 BP 116/71 09/05/18 05:00 Pulse Ox 99 09/05/18 05:00 Intake & Output 09/04/18 09/05/18 09/05/18 18:59 06:59 18:59 Intake Total 880 590 Output Total 300 Balance 580 590 Weight 123.7 kg 121.705 kg Intake: IV 400 Sodium Chloride 0.9% 1, 400 000 ml @ 50 mls/hr IV . Q20H [facility] Rx#:[id number] Oral 480 590 Output: Urine 300 Other: Voiding Method Toilet Toilet # Voids 1 - Labs CBC & Chem 7: 09/04/18 07:41 09/05/18 07:58 Labs: Abnormal Lab Results - Last 24 Hours (Table) 09/05/18 09/05/18 Range/Units 07:58 08:00 Sodium 130 L (137-145) mmol/L Carbon Dioxide 18 L (22-30) mmol/L BUN 46 H (7-17) mg/dL Creatinine 2.20 H (0.52-1.04) mg/dL Glucose 101 H (74-99) mg/dL Calcium 8.0 L (8.4-10.2) mg/dL Total Bilirubin 1.6 H (0.2-1.3) mg/dL Ammonia 35 H (<30) umol/L Total Protein 5.3 L (6.3-8.2) g/dL Albumin 2.6 L (3.5-5.0) g/dL Assessment and Plan Plan: Assessment: 1. Acute kidney injury secondary to ATN secondary to hypotension/diuretics. No proteinuria on UA. No evidence of hydronephrosis on renal ultrasound. There is concern for hepatorenal syndrome as well but less likely as renal function is improving with IV hydration. Urine sodium was 15. Creatinine peaked at 3.51 on September 03 and is down to 2.2 today. 2. Liver cirrhosis. 3. Ascites. Patient states she gets paracentesis every Monday with 8-10 L removed. Last paracentesis on September 04 with 7 L removed. 4. Metabolic acidosis secondary to acute kidney injury. Better. 5. Hypervolemic hyponatremia. Improved post paracentesis. 6. Hypotension due to underlying liver cirrhosis. Maintained on midodrine. Plan: Maintain midodrine and octreotide. Maintain normal saline at 50 mL an hour. Low-salt diet and 1200 mL fluid restriction. Maintain oral sodium bicarbonate. Repeat electrolytes in the morning.
--- NOTE | 2018-09-05 10:18 | P.PN ---
Subjective Progress Note Date: 09/05/18 Principal diagnosis: GI bleed No active bleeding. Creatinine 2.2. HGB 7.2. Ammonia 35. Afebrile. S/P paracentesis yesterday 7L removal. Objective - Vital Signs Vital signs: Vital Signs Temp 97.7 F 09/05/18 05:00 Pulse 70 09/05/18 05:00 Resp 16 09/05/18 05:00 BP 116/71 09/05/18 05:00 Pulse Ox 99 09/05/18 05:00 Intake & Output 09/04/18 09/05/18 09/05/18 18:59 06:59 18:59 Intake Total 880 590 Output Total 300 Balance 580 590 Weight 123.7 kg 121.705 kg Intake: IV 400 Sodium Chloride 0.9% 1, 400 000 ml @ 50 mls/hr IV . Q20[facility] Rx#:[id number] Oral 480 590 Output: Urine 300 Other: Voiding Method Toilet Toilet # Voids 1 - Labs CBC & Chem 7: 09/04/18 07:41 09/05/18 07:58 Labs: Abnormal Lab Results - Last 24 Hours (Table) 09/05/18 09/05/18 Range/Units 07:58 08:00 Sodium 130 L (137-145) mmol/L Carbon Dioxide 18 L (22-30) mmol/L BUN 46 H (7-17) mg/dL Creatinine 2.20 H (0.52-1.04) mg/dL Glucose 101 H (74-99) mg/dL Calcium 8.0 L (8.4-10.2) mg/dL Total Bilirubin 1.6 H (0.2-1.3) mg/dL Ammonia 35 H (<30) umol/L Total Protein 5.3 L (6.3-8.2) g/dL Albumin 2.6 L (3.5-5.0) g/dL Assessment and Plan (1) Acute blood loss anemia Current Visit: Yes Status: Acute Code(s): D62 - ACUTE POSTHEMORRHAGIC ANEMIA SNOMED Code(s): 597385476 (2) Anemia Current Visit: Yes Status: Acute Code(s): D64.9 - ANEMIA, UNSPECIFIED SNOMED Code(s): 455455382 (3) Ascites Current Visit: Yes Status: Acute Code(s): R18.8 - OTHER ASCITES SNOMED Code(s): 175587401 (4) Liver cirrhosis, alcoholic Current Visit: Yes Status: Acute Code(s): K70.30 - ALCOHOLIC CIRRHOSIS OF LIVER WITHOUT ASCITES SNOMED Code(s): 497063867 (5) Hyperammonemia Narrative/Plan: without encephalopathy Current Visit: Yes Status: Acute Code(s): E72.20 - DISORDER OF UREA CYCLE METABOLISM, UNSPECIFIED SNOMED Code(s): 9778865 (6) Acute kidney injury Current Visit: Yes Status: Acute Code(s): N17.9 - ACUTE KIDNEY FAILURE, UNSPECIFIED SNOMED Code(s): 57804416 Plan: 1. Low salt diet. Agreeable for DC. Paracentesis September 12. Patient will receive 3 albumin prior to paracentesis as well as post procedure. Return to office in 2 weeks for reevaluation. Alcohol abstinence reinforced. Lactulose 30 g twice daily titrate for at least 3 bowel movements. Assessment and plan a care discussed with Dr. Carmona
--- NOTE | 2018-09-05 11:24 | P.DS ---
Providers Date of admission: 08/28/18 16:22 Expected date of discharge: 09/05/18 Attending physician: Remington Benoit MD Consults: 08/28/18 18:01 Consult Physician Routine Consulting Provider: Uriel Lyman Consult Reason/Comments: terrance, hyponatremia Do you want consulting provider notified?: Yes Primary care physician: Stated None Hospital Course: Discharge Diagnosis: Decompensated cirrhosis TERRANCE, hepatorenal syndrome ruled out Acute blood loss anemia with iron deficiency anemia Morbid obesity Hyponatremia Hypotension Morbid obesity with BMI 40.8 Hospital Course: Patient is a 48-year-old female with past medical history of morbid obesity, chronic tobacco abuse, and liver cirrhosis requiring recurrent paracentesis weekly who presented at the direction of her outpatient physician due to low hemoglobin on her blood work. In the ER she was found be profoundly anemic with hemoglobin of 6.8. She was also found to have slightly elevated serum potassium of 5.3 and slightly elevated creatinine at 1.1 and she was guaiac positive. She was slightly hypotensive but her blood pressures are typically that low. She was subsequently admitted for further monitoring. She was ordered 1 unit of packed red blood cells. Serial hemoglobins were monitored and she was ultimately transfused a total of 3 units of packed red blood cells. She was seen by GI and underwent EGD on 08/30 with treatment of a small bowel AVM and esophageal varices with stigmata of bleeding. She also underwent paracentesis on 08/29. She struggled with some hypotension during her hospitalization was started on Midrin. Her creatinine continued to increase and nephrology was consulted. She is a placed on Midrin, octreotide, and IV fluids. Her hemoglobin has remained stable after her EGD. Her Cr started to improve on 09/04. SHe underwent paracentesis on 09/04 with removal of 7.1L of fluid. Her renal function continued to improve and she was determined stable for discharge. She will follow with Dr. Devine on 09/19/18, Dr. Lyman in 2 week, and will re- establish care with Dr. Jones for her PCP. She is provided a small prescription of Xanax 0.5 mg once daily prn anxiety #10 tablets until she can follow-up with Dr. Jones. Her Maps was reviewed on 09/05. She will remain off aldactone and lasix. She will continue midodrine, sodium bicarb, gabapentin, and will start on ferrous sulfate. She will have a BMP on 09/08. Patient seen and examined at bedside. Slight bit of abdominal pain today. It' s more tender to the touch and does not feel internal. She denies any fevers or chills. She is not having any confusion. She denies any nausea or vomiting. Shortness of breath is resolved after paracentesis. Vital signs reviewed and stable. General: non toxic, no distress, appears at stated age, obese Derm: warm, dry Head: atraumatic, normocephalic, symmetric Eyes: EOMI, no lid lag, anicteric sclera Mouth: no lip lesion, mucus membranes moist Cardiovascular: S1S2 reg, no murmur, positive posterior tibial pulse bilateral, Lungs: Decreased bs bilateral, no rhonchi, no rales , no accessory muscle use Abdominal: soft, nontender to palpation, no guarding, no appreciable organomegaly Ext: no gross muscle atrophy, 2+ edema, no contractures Neuro: CN II-XI grossly intact, no focal neuro deficits Psych: Alert, oriented, appropriate affect A total of 45 minutes of time were spent preparing this complex discharge summary . ( Pertinent Studies: Family Procedures: US guided paracentesis 121 and 09/04 EGD with plasma coagulation of AVM, variceal banding Plan - Discharge Summary Discharge Rx Participant: No New Discharge Prescriptions: New Gabapentin [Neurontin] 100 mg PO TID #90 cap Midodrine [ProAmatine] 10 mg PO AC-TID #90 tab Sodium Bicarbonate Tab 1,300 mg PO BID #120 tab ALPRAZolam [Xanax] 0.5 mg PO DAILY PRN #10 tab PRN Reason: Anxiety Continue Thiamine [Vitamin B-1] 100 mg PO DAILY@1200 diphenhydrAMINE [Benadryl] 25 mg PO HS PRN PRN Reason: Itching Lactulose [Cephulac] 30 gm PO BID PRN PRN Reason: Constipation Multivitamins, Thera [Multivitamin (formulary)] 1 tab PO DAILY@1200 Discontinued Spironolactone [Aldactone] 150 mg PO DAILY Furosemide [Lasix] 60 mg PO DAILY Discharge Medication List Thiamine [Vitamin B-1] 100 mg PO DAILY@1200 12/26/17 [History] diphenhydrAMINE [Benadryl] 25 mg PO HS PRN 01/08/18 [History] Lactulose [Cephulac] 30 gm PO BID PRN 05/22/18 [History] Multivitamins, Thera [Multivitamin (formulary)] 1 tab PO DAILY@1200 08/28/18 [ History] ALPRAZolam [Xanax] 0.5 mg PO DAILY PRN #10 tab 09/05/18 [Rx] Gabapentin [Neurontin] 100 mg PO TID #90 cap 09/05/18 [Rx] Midodrine [ProAmatine] 10 mg PO AC-TID #90 tab 09/05/18 [Rx] Sodium Bicarbonate Tab 1,300 mg PO BID #120 tab 09/05/18 [Rx] Follow up Appointment(s)/Referral(s): Kishan Devine MD [STAFF PHYSICIAN] - 09/27/18 5:30 pm Srinivas Jones DO [Doctor of Osteopathic Medicine] - 09/25/18 2:00 pm Uriel Lyman DO [STAFF PHYSICIAN] - 2 Weeks (office will call patient to schedule appt.) Ambulatory/Diagnostic Orders: Basic Metabolic Panel [LAB.AMB] Time Frame: 09/08/18, Location: None Selected Patient Instructions/Handouts: Alprazolam (By mouth), Gabapentin (By mouth), Midodrine (By mouth), Sodium Bicarbonate (By mouth), Cirrhosis (DC), Esophageal Varices (ED), Colonoscopy (DC), Upper Endoscopy (DC) Activity/Diet/Wound Care/Special Instructions: low sodium 2 gram diet, 1200 ml fluid restriction Blood work on Monday09/08/18 Paracentesis 09/12 at 8 am Discharge Disposition: HOME SELF-CARE
== END 2018-09-05 12:30 | disposition home or self-care (01) | DRG 432 ==
LOC: EC 14:06 → 4MS4W 16:22 → 3SCARD 16:45 → 3NMEDONC 09-04 22:16
PROVIDERS: ADMIT Family Medicine; ATTEND Family Medicine
PROC: 0W9G3ZZ Drainage of Peritoneal Cavity, Percutaneous Approach (ICD-10-PCS; principal; 2018-08-29)
PROC: 0W3P8ZZ Control Bleeding in Gastrointestinal Tract, Via Natural or Artificial Opening Endoscopic (ICD-10-PCS; 2018-08-30 10:50)
PROC: 0DJD8ZZ Inspection of Lower Intestinal Tract, Via Natural or Artificial Opening Endoscopic (ICD-10-PCS; 2018-08-30 10:50)
PROC: 0DB78ZX Excision of Stomach, Pylorus, Via Natural or Artificial Opening Endoscopic, Diagnostic (ICD-10-PCS; 2018-08-30 10:50)
DX: K70.31 Alcoholic cirrhosis of liver with ascites (principal); I85.11 Secondary esophageal varices with bleeding; N17.0 Acute kidney failure with tubular necrosis; D62 Acute posthemorrhagic anemia; E87.1 Hypo-osmolality and hyponatremia; E87.2 Acidosis; K76.6 Portal hypertension; Z68.41 Body mass index [BMI] 40.0-44.9, adult; E66.01 Morbid (severe) obesity due to excess calories; E86.1 Hypovolemia; E87.5 Hyperkalemia; F17.200 Nicotine dependence, unspecified, uncomplicated; I45.10 Unspecified right bundle-branch block; I86.4 Gastric varices; K29.70 Gastritis, unspecified, without bleeding; K55.20 Angiodysplasia of colon without hemorrhage; Z82.49 Family history of ischemic heart disease and other diseases of the circulatory system; Z82.5 Family history of asthma and other chronic lower respiratory diseases; Z83.3 Family history of diabetes mellitus; Z98.84 Bariatric surgery status; Z79.899 Other long term (current) drug therapy; I95.9 Hypotension, unspecified; F10.21 Alcohol dependence, in remission
CPT/HCPCS: 36415; 43239; 43244; 43270; 45378; 49083; 76705; 76770; 80048; 80053; 81001; 81025; 82105; 82140; 82272; 82565; 82728; 83540; 83550; 83735; 84100; 84300; 85025; 85027; 85049; 85610; 86850; 86900; 86901; 86920; 88108; 88305; 89050; 93005; 96360; 99291

== ENCOUNTER → 2018-09-08 | Outpatient (CLI) | payer SELFPAY ==
[2018-09-08 16:28] LABS: Anion Gap 7.7 mmol/L (4.00-12.00); Calcium 8.2 mg/dL (8.7-10.3); Carbon Dioxide 19.3 mmol/L (21.6-31.8); Potassium 4.3 mmol/L (3.5-5.5)
== END ==
LOC: LABWHC1 09:53
PROVIDERS: ATTEND Internal Medicine
DX: N17.9 Acute kidney failure, unspecified (principal)
CPT/HCPCS: 36415; 80048

== ENCOUNTER 2018-09-12 08:22 | Day surgery (SDC) | payer SELFPAY ==
[2018-09-12] MEDS: ALBUMIN HUMAN 25% 50 ML in EMPTY BAG 1 BAG IVPB SCH ×4 (08:49→09:58)
[2018-09-12 09:02] VITALS: RESP 16; TEMP 97.6
[2018-09-12 09:02] LABS: INR 1.2 (<1.2); Prothrombin Time 12.7 sec (9.0-12.0)
[2018-09-12 09:09] LABS: Platelet Count 220 k/uL (150-450)
[2018-09-12 11:06] VITALS: BP 106/55; PULSE 68
--- NOTE | 2018-09-12 14:49 | US ---
EXAMINATION TYPE: US paracentesis abd w/image DATE OF EXAM: 09/12/2018 COMPARISON: NONE HISTORY: Ascites. PROCEDURE: Maximal barrier technique was utilized. The skin overlying a suitable pocket of fluid was localized with ultrasound and the overlying skin was prepped and draped. Ultrasound was utilized with sterile technique. Lidocaine was used for local anesthesia and a skin angelo made with a scalpel. Catheter was advanced under direct ultrasound guidance into a suitable pocket of fluid and approximately 11 liters of serous fluid were removed. Catheter was withdrawn and hemostasis achieved. There is no immediat e complication; the patient is discharged in stable condition. IMPRESSION: STATUS POST ULTRASOUND GUIDED PARACENTESIS FOR PALLIATION OF ASCITES. THIS PROCEDURE WA S PERFORMED BY THE UNDERSIGNED.
== END 2018-09-12 11:15 | disposition home or self-care (01) ==
LOC: RADPROMAIN 08:22
DX: R18.8 Other ascites (principal)
CPT/HCPCS: 82565; 85049; 85610; 36415; 49083; P9047

== ENCOUNTER 2018-09-19 12:48 | Day surgery (SDC) | payer SELFPAY ==
[2018-09-19] MEDS: ALBUMIN HUMAN 25% 50 ML in EMPTY BAG 1 BAG IVPB SCH ×4 (13:19→15:01)
[2018-09-19 13:27] LABS: Mean Platelet Volume 7.2; Platelet Count 197 k/uL (150-450)
[2018-09-19 13:38] LABS: INR 1.1 (<1.2); Prothrombin Time 11.9 sec (9.0-12.0)
[2018-09-19 14:32] VITALS: RESP 18
[2018-09-19 16:23] VITALS: BP 106/57; PULSE 83
--- NOTE | 2018-09-20 09:21 | US ---
Therapeutic paracentesis. DATE OF EXAM: 09/19/2018 CLINICAL HISTORY: Ascites The procedure was discussed with the patient. The risks, complications, benefits, and alternatives we re discussed and any questions were answered. Informed consent was obtained. The patient was placed s upine on the ultrasound table and prepped and draped in the usual sterile fashion. All elements of maximal barrier technique were utilized. Under ultrasound guidance, access into the right lower quadrant was obtained, via the paracentesis catheter system and direct ultrasound guidanc e. Approximately 12 liters of straw-colored fluid was removed. The patient was stable throughout the pro cedure and remained stable upon discharge from Department of Radiology. IMPRESSION: Successful therapeutic paracentesis under ultrasound guidance.
== END 2018-09-19 16:10 | disposition home or self-care (01) ==
LOC: RADPROMAIN 12:48
DX: R18.8 Other ascites (principal)
CPT/HCPCS: 82565; 85049; 85610; 36415; 49083; P9047

== ENCOUNTER 2018-09-25 12:44 | Day surgery (SDC) | payer SELFPAY ==
[2018-09-25 13:20] LABS: INR 1.2 (<1.2); Prothrombin Time 12.4 sec (9.0-12.0)
[2018-09-25 13:21] LABS: Mean Platelet Volume 7.3; Platelet Count 190 k/uL (150-450)
[2018-09-25] MEDS: ALBUMIN HUMAN 25% 50 ML in EMPTY BAG 1 BAG IVPB SCH ×4 (13:24→14:16)
[2018-09-25 15:10] VITALS: BP 98/47; PULSE 81; RESP 18; TEMP 98.7
--- NOTE | 2018-09-25 16:02 | US ---
EXAMINATION TYPE: US paracentesis abd w/image DATE OF EXAM: 09/25/2018 COMPARISON: NONE HISTORY: Ascites. PROCEDURE: Maximal barrier technique was utilized. The skin overlying a suitable pocket of fluid was localized with ultrasound and the overlying skin was prepped and draped. Ultrasound was utilized with sterile technique. Lidocaine was used for local anesthesia and a skin angelo made with a scalpel. Catheter was advanced under direct ultrasound guidance into a suitable pocket of fluid and approximately 9.6 liter s of serous fluid were removed. Catheter was withdrawn and hemostasis achieved. There is no immedia te complication; the patient is discharged in stable condition. IMPRESSION: STATUS POST ULTRASOUND GUIDED PARACENTESIS FOR PALLIATION OF ASCITES. THIS PROCEDURE WA S PERFORMED BY THE UNDERSIGNED.
== END 2018-09-25 15:25 | disposition home or self-care (01) ==
LOC: RADPROMAIN 12:44
DX: R18.8 Other ascites (principal)
CPT/HCPCS: 82565; 85049; 85610; 49083; P9047

== ENCOUNTER 2018-10-02 12:47 | Day surgery (SDC) | payer SELFPAY ==
[2018-10-02 13:15] VITALS: RESP 20; TEMP 97.3
[2018-10-02 13:16] LABS: Mean Platelet Volume 7.2; Platelet Count 198 k/uL (150-450)
[2018-10-02] MEDS: ALBUMIN HUMAN 25% 50 ML in EMPTY BAG 1 BAG IVPB SCH ×4 (13:22→15:28)
[2018-10-02 13:27] LABS: INR 1.1 (<1.2); Prothrombin Time 11.9 sec (9.0-12.0)
[2018-10-02 15:49] VITALS: BP 103/51; PULSE 75
--- NOTE | 2018-10-02 17:04 | US ---
EXAMINATION TYPE: US paracentesis abd w/image DATE OF EXAM: 10/02/2018 COMPARISON: NONE HISTORY: Ascites. PROCEDURE: Maximal barrier technique was utilized. The skin overlying a suitable pocket of fluid was localized with ultrasound and the overlying skin was prepped and draped. Ultrasound was utilized with sterile technique. Lidocaine was used for local anesthesia and a skin angelo made with a scalpel. Catheter was advanced under direct ultrasound guidance into a suitable pocket of fluid and approximately 10.3 lite rs of serous fluid were removed. Catheter was withdrawn and hemostasis achieved. There is no immedi ate complication; the patient is discharged in stable condition. IMPRESSION: STATUS POST ULTRASOUND GUIDED PARACENTESIS FOR PALLIATION OF ASCITES. THIS PROCEDURE WA S PERFORMED BY THE UNDERSIGNED.
== END 2018-10-02 16:05 | disposition home or self-care (01) ==
LOC: RADPROMAIN 12:47
DX: R18.8 Other ascites (principal)
CPT/HCPCS: 82565; 85049; 85610; 36415; 49083; P9047

== ENCOUNTER 2018-10-09 11:13 | Inpatient (IN) | payer OTHER ==
[2018-10-09 11:24] LABS: Glucose,Whole Blood 100 mg/dL (75-99)
[2018-10-09] MEDS ORDERED: SODIUM CHLORIDE 0.9% 1,000 ML IV ONE ×2 (11:31→18:19)
--- NOTE | 2018-10-09 11:38 | ED ---
General Adult HPI - General Chief complaint: Altered Mental Status Stated complaint: ALTERED MENTAL STATUS Time Seen by Provider: 10/09/18 11:22 Source: patient, EMS, RN notes reviewed Mode of arrival: EMS Limitations: no limitations - History of Present Illness Initial comments: Patient is a pleasant 48-year-old female presenting to the emergency department with fatigue and change in mental status. Patient has a known history of similar symptoms previously associated with liver disease. Patient does have cirrhosis. Patient is a poor historian and provides limited information. Patient states he has had similar symptoms previously. Patient states she feels weak and tired all over. Patient denies feeling confused. Patient states she has not been eating and drinking well lately. - Related Data Home Medications Medication Instructions Recorded Confirmed Furosemide [Lasix] 60 mg PO DAILY 10/09/18 10/09/18 Sodium Bicarbonate Tab 650 mg PO BID 10/09/18 10/09/18 Spironolactone [Aldactone] 50 mg PO TID 10/09/18 10/09/18 Previous Rx's Medication Instructions Recorded ALPRAZolam [Xanax] 0.5 mg PO DAILY PRN #10 tab 09/05/18 Ferrous Sulfate [Feosol] 325 mg PO BID #60 tab 09/05/18 Gabapentin [Neurontin] 100 mg PO TID #90 cap 09/05/18 Midodrine [ProAmatine] 10 mg PO AC-TID #90 tab 09/05/18 Allergies Allergy/AdvReac Type Severity Reaction Status Date / Time adhesive tape Allergy Rash/Hives Verified 10/09/18 14:35 Review of Systems ROS Statement: Those systems with pertinent positive or pertinent negative responses have been documented in the HPI. ROS Other: All systems not noted in ROS Statement are negative. Constitutional: Denies: fever Eyes: Denies: eye pain ENT: Denies: ear pain Respiratory: Denies: cough, dyspnea Cardiovascular: Denies: chest pain Endocrine: Reports: fatigue Gastrointestinal: Denies: abdominal pain, vomiting Genitourinary: Denies: dysuria Musculoskeletal: Denies: back pain Skin: Denies: rash Neurological: Denies: headache Past Medical History Past Medical History: Liver Disease Additional Past Medical History / Comment(s): ascites History of Any Multi-Drug Resistant Organisms: None Reported Past Surgical History: Section Additional Past Surgical History / Comment(s): gastric bypass in 2002 Past Anesthesia/Blood Transfusion Reactions: No Reported Reaction Additional Past Anesthesia/Blood Transfusion Reaction / Comment(s): never had blood transfusion Past Psychological History: No Psychological Hx Reported Smoking Status: Current every day smoker Past Alcohol Use History: Daily Past Drug Use History: None Reported - Past Family History Mother History Unknown: Yes Family Medical History: Congestive Heart Failure (CHF), COPD Father History Unknown: Yes Family Medical History: Diabetes Mellitus General Exam Limitations: no limitations General appearance: alert, in no apparent distress Head exam: Present: atraumatic Eye exam: Present: normal appearance, PERRL, EOMI. Absent: nystagmus ENT exam: Present: mucous membranes dry Neck exam: Present: normal inspection Respiratory exam: Present: normal lung sounds bilaterally Cardiovascular Exam: Present: regular rate, normal rhythm GI/Abdominal exam: Present: soft, organomegaly (Mild hepatomegaly). Absent: distended, tenderness Extremities exam: Present: normal inspection Neurological exam: Present: alert, altered, CN II-XII intact Expanded Neurological exam: Present: protecting the airway Patient oriented to: Present: person, place. Absent: time Cranial nerves: EOM's Intact: Normal Sensory exam: Upper Extremity Light Touch: Normal, Lower Extremity Light Touch: Normal Motor strength exam: RUE: 4, LUE: 4, RLE: 4, LLE: 4 Eye Response: (4) open spontaneously Motor Response: (6) obeys commands Verbal Response: (4) confused conversation Psychiatric exam: Present: flat affect Skin exam: Present: abrasion (Left ankle) Course Vital Signs 10/09/18 10/09/18 10/09/18 11:22 11:27 11:30 Temperature 97.6 F Pulse Rate 87 Respiratory 18 Rate Blood Pressure 99/38 108/60 108/60 O2 Sat by Pulse 97 100 Oximetry 10/09/18 10/09/18 10/09/18 11:40 11:50 12:00 Temperature Pulse Rate 86 93 92 Respiratory 18 21 19 Rate Blood Pressure 89/45 99/38 91/51 O2 Sat by Pulse Oximetry 10/09/18 10/09/18 10/09/18 12:10 12:20 12:30 Temperature Pulse Rate 97 Respiratory 19 Rate Blood Pressure 101/38 91/43 91/43 O2 Sat by Pulse Oximetry 10/09/18 10/09/18 10/09/18 12:40 12:50 13:00 Temperature Pulse Rate 78 92 86 Respiratory 18 17 20 Rate Blood Pressure 91/43 104/32 93/41 O2 Sat by Pulse 100 100 100 Oximetry 10/09/18 10/09/18 10/09/18 14:00 14:03 14:13 Temperature Pulse Rate 103 H 96 99 Respiratory 20 Rate Blood Pressure 107/81 O2 Sat by Pulse 98 Oximetry - Reevaluation(s) Reevaluation #1: 10/09/18 13:21 Patient does meet sepsis criteria at 1321. [place] body weight at 5 foot 8 of 63.5 kg, 30 mL/kg as 1905. Fluid bolus provided. Lactic acid blood culture and IV antibiotics ordered. 10/09/18 14:00 Patient reevaluated and updated. Case was discussed in detail with Dr. Jones, who will admit his patient. He does request ICU with consult for Dr. Castillo. Dr. Castillo has been paged. 10/09/18 14:48 Patient has now had four consistent blood pressures over 100 systolic. IV fluid bolus is continuing to run. EKG Findings - EKG Comments: EKG Findings:: Normal sinus rhythm 89. NM 180. QRS 160. QT 404. QTC 491. Left axis. Right bundle block. Left anterior fascicular block. Nonspecific ST -T. Medical Decision Making - Medical Decision Making Patient may have a component of hepatic encephalopathy and lactulose has been ordered. Patient does have major metabolic problems. Nephrology will be placed on consult. Treatment for hyperkalemia and hyponatremia started. Patient given fluids and antibiotics for urinary tract infection. - Lab Data Result diagrams: 10/09/18 11:24 10/09/18 11:24 Lab Results 10/09/18 10/09/18 10/09/18 Range/Units 11:22 11:24 11:24 WBC 8.2 (3.8-10.6) k/uL RBC 2.93 L (3.80-5.40) m/uL Hgb 8.0 L (11.4-16.0) gm/dL Hct 24.4 L (34.0-46.0) % MCV 83.3 (80.0-100.0) fL MCH 27.2 (25.0-35.0) pg MCHC 32.7 (31.0-37.0) g/dL RDW 17.6 H (11.5-15.5) % Plt Count 173 (150-450) k/uL Neutrophils % 88 % Lymphocytes % 8 % Monocytes % 2 % Eosinophils % 1 % Basophils % 0 % Neutrophils # 7.2 (1.3-7.7) k/uL Lymphocytes # 0.7 L (1.0-4.8) k/uL Monocytes # 0.2 (0-1.0) k/uL Eosinophils # 0.1 (0-0.7) k/uL Basophils # 0.0 (0-0.2) k/uL Hypochromasia Slight Anisocytosis Slight PT (9.0-12.0) sec INR (<1.2) APTT (22.0-30.0) sec Sodium (137-145) mmol/L Potassium (3.5-5.1) mmol/L Chloride (98-107) mmol/L Carbon Dioxide (22-30) mmol/L Anion Gap mmol/L BUN (7-17) mg/dL Creatinine (0.52-1.04) mg/dL Est GFR (CKD-EPI)AfAm (>60 ml/min/1.73 sqM) Est GFR (CKD-EPI)NonAf (>60 ml/min/1.73 sqM) Glucose (74-99) mg/dL POC Glucose (mg/dL) 100 H (75-99) mg/dL POC Glu Cloth Doffer ID Ike Rowe Calcium (8.4-10.2) mg/dL Total Bilirubin (0.2-1.3) mg/dL AST (14-36) U/L ALT (9-52) U/L Alkaline Phosphatase (38-126) U/L Ammonia (<30) umol/L Total Creatine Kinase 195 H (30-135) U/L CK-MB (CK-2) 4.6 H (0.0-2.4) ng/mL CK-MB (CK-2) Rel Index 2.4 Troponin I <0.012 (0.000-0.034) ng/mL Total Protein (6.3-8.2) g/dL Albumin (3.5-5.0) g/dL Urine Color Urine Appearance (Clear) Urine pH (5.0-8.0) Ur Specific [place] (1.001-1.035) Urine Protein (Negative) Urine Glucose (UA) (Negative) Urine Ketones (Negative) Urine Blood (Negative) Urine Nitrite (Negative) Urine Bilirubin (Negative) Urine Urobilinogen (<2.0) mg/dL Ur Leukocyte Esterase (Negative) Urine RBC (0-5) /hpf Urine WBC (0-5) /hpf Urine WBC Clumps (None) /hpf Urine Bacteria (None) /hpf Urine Opiates Screen (NotDetected) Ur Oxycodone Screen (NotDetected) Urine Methadone Screen (NotDetected) Ur Propoxyphene Screen (NotDetected) Ur Barbiturates Screen (NotDetected) U Tricyclic Antidepress (NotDetected) Ur Phencyclidine Scrn (NotDetected) Ur Amphetamines Screen (NotDetected) U Methamphetamines Scrn (NotDetected) U Benzodiazepines Scrn (NotDetected) Urine Cocaine Screen (NotDetected) U Marijuana (THC) Screen (NotDetected) Serum Alcohol mg/dL 10/09/18 10/09/18 10/09/18 Range/Units 11:24 11:24 11:24 WBC (3.8-10.6) k/uL RBC (3.80-5.40) m/uL Hgb (11.4-16.0) gm/dL Hct (34.0-46.0) % MCV (80.0-100.0) fL MCH (25.0-35.0) pg MCHC (31.0-37.0) g/dL RDW (11.5-15.5) % Plt Count (150-450) k/uL Neutrophils % % Lymphocytes % % Monocytes % % Eosinophils % % Basophils % % Neutrophils # (1.3-7.7) k/uL Lymphocytes # (1.0-4.8) k/uL Monocytes # (0-1.0) k/uL Eosinophils # (0-0.7) k/uL Basophils # (0-0.2) k/uL Hypochromasia Anisocytosis PT 16.4 H (9.0-12.0) sec INR 1.6 H (<1.2) APTT 34.4 H (22.0-30.0) sec Sodium 122 L (137-145) mmol/L Potassium 7.1 H* (3.5-5.1) mmol/L Chloride 95 L (98-107) mmol/L Carbon Dioxide 15 L (22-30) mmol/L Anion Gap 12 mmol/L BUN 84 H (7-17) mg/dL Creatinine 3.47 H (0.52-1.04) mg/dL Est GFR (CKD-EPI)AfAm 17 (>60 ml/min/1.73 sqM) Est GFR (CKD-EPI)NonAf 15 (>60 ml/min/1.73 sqM) Glucose 94 (74-99) mg/dL POC Glucose (mg/dL) (75-99) mg/dL POC Glu Cloth Doffer ID Calcium 8.4 (8.4-10.2) mg/dL Total Bilirubin 2.3 H (0.2-1.3) mg/dL AST 93 H (14-36) U/L ALT 41 (9-52) U/L Alkaline Phosphatase 117 (38-126) U/L Ammonia 40 H (<30) umol/L Total Creatine Kinase (30-135) U/L CK-MB (CK-2) (0.0-2.4) ng/mL CK-MB (CK-2) Rel Index Troponin I (0.000-0.034) ng/mL Total Protein 5.3 L (6.3-8.2) g/dL Albumin 2.5 L (3.5-5.0) g/dL Urine Color Urine Appearance (Clear) Urine pH (5.0-8.0) Ur Specific [place] (1.001-1.035) Urine Protein (Negative) Urine Glucose (UA) (Negative) Urine Ketones (Negative) Urine Blood (Negative) Urine Nitrite (Negative) Urine Bilirubin (Negative) Urine Urobilinogen (<2.0) mg/dL Ur Leukocyte Esterase (Negative) Urine RBC (0-5) /hpf Urine WBC (0-5) /hpf Urine WBC Clumps (None) /hpf Urine Bacteria (None) /hpf Urine Opiates Screen (NotDetected) Ur Oxycodone Screen (NotDetected) Urine Methadone Screen (NotDetected) Ur Propoxyphene Screen (NotDetected) Ur Barbiturates Screen (NotDetected) U Tricyclic Antidepress (NotDetected) Ur Phencyclidine Scrn (NotDetected) Ur Amphetamines Screen (NotDetected) U Methamphetamines Scrn (NotDetected) U Benzodiazepines Scrn (NotDetected) Urine Cocaine Screen (NotDetected) U Marijuana (THC) Screen (NotDetected) Serum Alcohol <10 mg/dL 10/09/18 Range/Units 12:06 WBC (3.8-10.6) k/uL RBC (3.80-5.40) m/uL Hgb (11.4-16.0) gm/dL Hct (34.0-46.0) % MCV (80.0-100.0) fL MCH (25.0-35.0) pg MCHC (31.0-37.0) g/dL RDW (11.5-15.5) % Plt Count (150-450) k/uL Neutrophils % % Lymphocytes % % Monocytes % % Eosinophils % % Basophils % % Neutrophils # (1.3-7.7) k/uL Lymphocytes # (1.0-4.8) k/uL Monocytes # (0-1.0) k/uL Eosinophils # (0-0.7) k/uL Basophils # (0-0.2) k/uL Hypochromasia Anisocytosis PT (9.0-12.0) sec INR (<1.2) APTT (22.0-30.0) sec Sodium (137-145) mmol/L Potassium (3.5-5.1) mmol/L Chloride (98-107) mmol/L Carbon Dioxide (22-30) mmol/L Anion Gap mmol/L BUN (7-17) mg/dL Creatinine (0.52-1.04) mg/dL Est GFR (CKD-EPI)AfAm (>60 ml/min/1.73 sqM) Est GFR (CKD-EPI)NonAf (>60 ml/min/1.73 sqM) Glucose (74-99) mg/dL POC Glucose (mg/dL) (75-99) mg/dL POC Glu Cloth Doffer ID Calcium (8.4-10.2) mg/dL Total Bilirubin (0.2-1.3) mg/dL AST (14-36) U/L ALT (9-52) U/L Alkaline Phosphatase (38-126) U/L Ammonia (<30) umol/L Total Creatine Kinase (30-135) U/L CK-MB (CK-2) (0.0-2.4) ng/mL CK-MB (CK-2) Rel Index Troponin I (0.000-0.034) ng/mL Total Protein (6.3-8.2) g/dL Albumin (3.5-5.0) g/dL Urine Color Light Red Urine Appearance Cloudy H (Clear) Urine pH 5.0 (5.0-8.0) Ur Specific [place] 1.014 (1.001-1.035) Urine Protein Trace H (Negative) Urine Glucose (UA) Negative (Negative) Urine Ketones Negative (Negative) Urine Blood Trace H (Negative) Urine Nitrite Negative (Negative) Urine Bilirubin Negative (Negative) Urine Urobilinogen 6.0 (<2.0) mg/dL Ur Leukocyte Esterase Large H (Negative) Urine RBC 6 H (0-5) /hpf Urine WBC 46 H (0-5) /hpf Urine WBC Clumps Many H (None) /hpf Urine Bacteria Moderate H (None) /hpf Urine Opiates Screen Not Detected (NotDetected) Ur Oxycodone Screen Not Detected (NotDetected) Urine Methadone Screen Not Detected (NotDetected) Ur Propoxyphene Screen Not Detected (NotDetected) Ur Barbiturates Screen Not Detected (NotDetected) U Tricyclic Antidepress Not Detected (NotDetected) Ur Phencyclidine Scrn Not Detected (NotDetected) Ur Amphetamines Screen Not Detected (NotDetected) U Methamphetamines Scrn Not Detected (NotDetected) U Benzodiazepines Scrn Not Detected (NotDetected) Urine Cocaine Screen Not Detected (NotDetected) U Marijuana (THC) Screen Not Detected (NotDetected) Serum Alcohol mg/dL Critical Care Time Critical Care Time: Yes Total Critical Care Time: 37 Disposition Clinical Impression: Altered mental status, Hyponatremia, Hyperkalemia, Hepatic encephalopathy, UTI (urinary tract infection), Severe sepsis Disposition: ADMITTED IP TO THIS [facility] Condition: Serious Decision Time: 13:24
[2018-10-09] MEDS ORDERED: DIPH,PERTUS(ACELL)TETVAC-LF 0.5 ML VIAL IM ONE (11:50)
[2018-10-09 11:59] LABS: Anisocytosis Slight; Basophils % (A) 0 %; Eosinophils # (A) 0.1 k/uL (0-0.7); Eosinophils % (A) 1 %; HCT 24.4 % (34.0-46.0); Hypochromasia Slight; Lymphocytes # (A) 0.7 k/uL (1.0-4.8); Lymphocytes % (A) 8 %; MCH 27.2 pg (25.0-35.0); MCHC 32.7 g/dL (31.0-37.0); MCV 83.3 fL (80.0-100.0); Mean Platelet Volume 7.7; Monocytes # (A) 0.2 k/uL (0-1.0); Monocytes % (A) 2 %; Neutrophils # (A) 7.2 k/uL (1.3-7.7); Neutrophils % (A) 88 %; Platelet Count 173 k/uL (150-450); RBC 2.93 m/uL (3.80-5.40); RDW 17.6 % (11.5-15.5); WBC 8.2 k/uL (3.8-10.6)
[2018-10-09 12:10] LABS: ALT 41 U/L (9-52); AST 93 U/L (14-36); Albumin 2.5 g/dL (3.5-5.0); Alcohol <10 mg/dL; Alkaline Phosphatase 117 U/L (38-126); Anion Gap 12 mmol/L; Blood Urea Nitrogen 84 mg/dL (7-17); Calcium 8.4 mg/dL (8.4-10.2); Carbon Dioxide 15 mmol/L (22-30); Chloride 95 mmol/L (98-107); Glucose 94 mg/dL (74-99); Sodium 122 mmol/L (137-145); Total Bilirubin 2.3 mg/dL (0.2-1.3); Total Protein 5.3 g/dL (6.3-8.2)
[2018-10-09 12:17] LABS: INR 1.6 (<1.2); Partial Thromboplastin Time 34.4 sec (22.0-30.0); Prothrombin Time 16.4 sec (9.0-12.0)
[2018-10-09 12:24] LABS: Appearance,Urine Cloudy (Clear); Bacteria,Urine Moderate /hpf; Bilirubin,Urine Negative (Negative); Blood,Urine Trace (Negative); Color,Urine Light Red; Glucose,Urine (UA) Negative (Negative); Ketones,Urine Negative (Negative); Leukocyte Esterase,Urine Large (Negative); Nitrite,Urine Negative (Negative); Protein,Urine Trace (Negative); RBC,Urine 6 /hpf (0-5); Specific Gravity,Urine 1.014 (1.001-1.035); WBC,Urine 46 /hpf (0-5)
[2018-10-09 12:27] LABS: Creatine Kinase 195 U/L (30-135)
[2018-10-09 12:30] LABS: Amphetamine Screen,Urine Not Detected (NotDetected); Barbiturate Screen,Urine Not Detected (NotDetected); Benzodiazepines Screen,Urine Not Detected (NotDetected); Cocaine Screen,Urine Not Detected (NotDetected); Methadone Screen, Urine Not Detected (NotDetected); Opiate Screen,Urine Not Detected (NotDetected); Oxycodone Screen, Urine Not Detected (NotDetected); Phencyclidine Screen,Urine Not Detected (NotDetected); Tricyclic Antidepressant,Urine Not Detected (NotDetected); Urn Cannabinoid Scrn Not Detected (NotDetected)
[2018-10-09 12:34] LABS: Potassium 7.1 mmol/L (3.5-5.1)
[2018-10-09 12:41] LABS: Creatine Kinase MB 4.6 ng/mL (0.0-2.4); Troponin I <0.012 ng/mL (0.000-0.034)
--- NOTE | 2018-10-09 12:50 | XR ---
AP pelvis HISTORY: Pain Single frontal view of the pelvis submitted. Patient is rotated. Bone mineralization is normal. Joint spaces and alignment are within normal limits. Increased soft ti ssue noted. Hazy opacity noted over the exam, possible ascites. IMPRESSION: No acute abnormality
--- NOTE | 2018-10-09 12:52 | XR ---
EXAMINATION TYPE: XR chest 2V DATE OF EXAM: 10/09/2018 COMPARISON: Prior chest x-ray 11/20/2017 HISTORY: Altered mental status, weakness TECHNIQUE: Frontal and lateral views of the chest are obtained. FINDINGS: Lung volumes are low. There are overlying cardiac leads. Patient is rotated. There is no fo luzmaria air space opacity, pleural effusion, or pneumothorax seen. The cardiac silhouette size is within normal limits. The osseous structures are intact. IMPRESSION: No acute cardiopulmonary process. Expiratory rotated exam. Follow-up as indicated.
[2018-10-09] MEDS ORDERED: SODIUM CHLORIDE 0.9% 1,000 ML IV STA ×2 (13:15)
[2018-10-09] MEDS ORDERED: DEXTROSE 50%-WATER 50 ML SYRINGE IVP STA ×2 (13:17→22:18)
[2018-10-09] MEDS ORDERED: INSULIN REGULAR 100 UNIT/ML VIAL IV ONE ×2 (13:17→22:17)
[2018-10-09] MEDS ORDERED: SODIUM POLYSTYRENE SULFONATE 15 GM/60 ML BOTTLE PO ONE (13:18)
[2018-10-09] MEDS ORDERED: LACTULOSE 20 GM/30 ML CUP PO ONE (13:18)
[2018-10-09] MEDS ORDERED: cefTRIAXone 2,000 MG in SODIUM CHLORIDE 0.9% 100 ML IVPB STA (13:19)
[2018-10-09] MEDS ORDERED: ALBUTEROL NEBULIZED 2.5 MG/3 ML INHALATION STA ×2 (13:20→22:21)
[2018-10-09] MEDS ORDERED: SODIUM BICARB 8.4% 50 ML SYR (1 MEQ/ML) IV ONE (13:21)
[2018-10-09] MEDS ORDERED: CALCIUM GLUCONATE 1,000 MG in SODIUM CHLORIDE 0.9% 100 ML IVPB ONE (13:30)
[2018-10-09] MEDS ORDERED: NALOXONE 0.4 MG/ML 1 ML VIAL IV PRN (14:00)
[2018-10-09 14:28] LABS: Glucose,Whole Blood 182 mg/dL (75-99)
[2018-10-09 15:31] LABS: Glucose,Whole Blood 76 mg/dL (75-99)
--- NOTE | 2018-10-09 16:50 | ED ---
Medical Decision Making - Lab Data Result diagrams: 10/09/18 11:24 10/09/18 11:24 Lab Results 10/09/18 10/09/18 10/09/18 Range/Units 11:22 11:24 11:24 WBC 8.2 (3.8-10.6) k/uL RBC 2.93 L (3.80-5.40) m/uL Hgb 8.0 L (11.4-16.0) gm/dL Hct 24.4 L (34.0-46.0) % MCV 83.3 (80.0-100.0) fL MCH 27.2 (25.0-35.0) pg MCHC 32.7 (31.0-37.0) g/dL RDW 17.6 H (11.5-15.5) % Plt Count 173 (150-450) k/uL Neutrophils % 88 % Lymphocytes % 8 % Monocytes % 2 % Eosinophils % 1 % Basophils % 0 % Neutrophils # 7.2 (1.3-7.7) k/uL Lymphocytes # 0.7 L (1.0-4.8) k/uL Monocytes # 0.2 (0-1.0) k/uL Eosinophils # 0.1 (0-0.7) k/uL Basophils # 0.0 (0-0.2) k/uL Hypochromasia Slight Anisocytosis Slight PT (9.0-12.0) sec INR (<1.2) APTT (22.0-30.0) sec Sodium (137-145) mmol/L Potassium (3.5-5.1) mmol/L Chloride (98-107) mmol/L Carbon Dioxide (22-30) mmol/L Anion Gap mmol/L BUN (7-17) mg/dL Creatinine (0.52-1.04) mg/dL Est GFR (CKD-EPI)AfAm (>60 ml/min/1.73 sqM) Est GFR (CKD-EPI)NonAf (>60 ml/min/1.73 sqM) Glucose (74-99) mg/dL POC Glucose (mg/dL) 100 H (75-99) mg/dL POC Glu Radiology Director ID [place], Ike Calcium (8.4-10.2) mg/dL Total Bilirubin (0.2-1.3) mg/dL AST (14-36) U/L ALT (9-52) U/L Alkaline Phosphatase (38-126) U/L Ammonia (<30) umol/L Total Creatine Kinase 195 H (30-135) U/L CK-MB (CK-2) 4.6 H (0.0-2.4) ng/mL CK-MB (CK-2) Rel Index 2.4 Troponin I <0.012 (0.000-0.034) ng/mL Total Protein (6.3-8.2) g/dL Albumin (3.5-5.0) g/dL Urine Color Urine Appearance (Clear) Urine pH (5.0-8.0) Ur Specific [place] (1.001-1.035) Urine Protein (Negative) Urine Glucose (UA) (Negative) Urine Ketones (Negative) Urine Blood (Negative) Urine Nitrite (Negative) Urine Bilirubin (Negative) Urine Urobilinogen (<2.0) mg/dL Ur Leukocyte Esterase (Negative) Urine RBC (0-5) /hpf Urine WBC (0-5) /hpf Urine WBC Clumps (None) /hpf Urine Bacteria (None) /hpf Urine Opiates Screen (NotDetected) Ur Oxycodone Screen (NotDetected) Urine Methadone Screen (NotDetected) Ur Propoxyphene Screen (NotDetected) Ur Barbiturates Screen (NotDetected) U Tricyclic Antidepress (NotDetected) Ur Phencyclidine Scrn (NotDetected) Ur Amphetamines Screen (NotDetected) U Methamphetamines Scrn (NotDetected) U Benzodiazepines Scrn (NotDetected) Urine Cocaine Screen (NotDetected) U Marijuana (THC) Screen (NotDetected) Serum Alcohol mg/dL 10/09/18 10/09/18 10/09/18 Range/Units 11:24 11:24 11:24 WBC (3.8-10.6) k/uL RBC (3.80-5.40) m/uL Hgb (11.4-16.0) gm/dL Hct (34.0-46.0) % MCV (80.0-100.0) fL MCH (25.0-35.0) pg MCHC (31.0-37.0) g/dL RDW (11.5-15.5) % Plt Count (150-450) k/uL Neutrophils % % Lymphocytes % % Monocytes % % Eosinophils % % Basophils % % Neutrophils # (1.3-7.7) k/uL Lymphocytes # (1.0-4.8) k/uL Monocytes # (0-1.0) k/uL Eosinophils # (0-0.7) k/uL Basophils # (0-0.2) k/uL Hypochromasia Anisocytosis PT 16.4 H (9.0-12.0) sec INR 1.6 H (<1.2) APTT 34.4 H (22.0-30.0) sec Sodium 122 L (137-145) mmol/L Potassium 7.1 H* (3.5-5.1) mmol/L Chloride 95 L (98-107) mmol/L Carbon Dioxide 15 L (22-30) mmol/L Anion Gap 12 mmol/L BUN 84 H (7-17) mg/dL Creatinine 3.47 H (0.52-1.04) mg/dL Est GFR (CKD-EPI)AfAm 17 (>60 ml/min/1.73 sqM) Est GFR (CKD-EPI)NonAf 15 (>60 ml/min/1.73 sqM) Glucose 94 (74-99) mg/dL POC Glucose (mg/dL) (75-99) mg/dL POC Glu Radiology Director ID Calcium 8.4 (8.4-10.2) mg/dL Total Bilirubin 2.3 H (0.2-1.3) mg/dL AST 93 H (14-36) U/L ALT 41 (9-52) U/L Alkaline Phosphatase 117 (38-126) U/L Ammonia 40 H (<30) umol/L Total Creatine Kinase (30-135) U/L CK-MB (CK-2) (0.0-2.4) ng/mL CK-MB (CK-2) Rel Index Troponin I (0.000-0.034) ng/mL Total Protein 5.3 L (6.3-8.2) g/dL Albumin 2.5 L (3.5-5.0) g/dL Urine Color Urine Appearance (Clear) Urine pH (5.0-8.0) Ur Specific [place] (1.001-1.035) Urine Protein (Negative) Urine Glucose (UA) (Negative) Urine Ketones (Negative) Urine Blood (Negative) Urine Nitrite (Negative) Urine Bilirubin (Negative) Urine Urobilinogen (<2.0) mg/dL Ur Leukocyte Esterase (Negative) Urine RBC (0-5) /hpf Urine WBC (0-5) /hpf Urine WBC Clumps (None) /hpf Urine Bacteria (None) /hpf Urine Opiates Screen (NotDetected) Ur Oxycodone Screen (NotDetected) Urine Methadone Screen (NotDetected) Ur Propoxyphene Screen (NotDetected) Ur Barbiturates Screen (NotDetected) U Tricyclic Antidepress (NotDetected) Ur Phencyclidine Scrn (NotDetected) Ur Amphetamines Screen (NotDetected) U Methamphetamines Scrn (NotDetected) U Benzodiazepines Scrn (NotDetected) Urine Cocaine Screen (NotDetected) U Marijuana (THC) Screen (NotDetected) Serum Alcohol <10 mg/dL 10/09/18 Range/Units 12:06 WBC (3.8-10.6) k/uL RBC (3.80-5.40) m/uL Hgb (11.4-16.0) gm/dL Hct (34.0-46.0) % MCV (80.0-100.0) fL MCH (25.0-35.0) pg MCHC (31.0-37.0) g/dL RDW (11.5-15.5) % Plt Count (150-450) k/uL Neutrophils % % Lymphocytes % % Monocytes % % Eosinophils % % Basophils % % Neutrophils # (1.3-7.7) k/uL Lymphocytes # (1.0-4.8) k/uL Monocytes # (0-1.0) k/uL Eosinophils # (0-0.7) k/uL Basophils # (0-0.2) k/uL Hypochromasia Anisocytosis PT (9.0-12.0) sec INR (<1.2) APTT (22.0-30.0) sec Sodium (137-145) mmol/L Potassium (3.5-5.1) mmol/L Chloride (98-107) mmol/L Carbon Dioxide (22-30) mmol/L Anion Gap mmol/L BUN (7-17) mg/dL Creatinine (0.52-1.04) mg/dL Est GFR (CKD-EPI)AfAm (>60 ml/min/1.73 sqM) Est GFR (CKD-EPI)NonAf (>60 ml/min/1.73 sqM) Glucose (74-99) mg/dL POC Glucose (mg/dL) (75-99) mg/dL POC Glu Radiology Director ID Calcium (8.4-10.2) mg/dL Total Bilirubin (0.2-1.3) mg/dL AST (14-36) U/L ALT (9-52) U/L Alkaline Phosphatase (38-126) U/L Ammonia (<30) umol/L Total Creatine Kinase (30-135) U/L CK-MB (CK-2) (0.0-2.4) ng/mL CK-MB (CK-2) Rel Index Troponin I (0.000-0.034) ng/mL Total Protein (6.3-8.2) g/dL Albumin (3.5-5.0) g/dL Urine Color Light Red Urine Appearance Cloudy H (Clear) Urine pH 5.0 (5.0-8.0) Ur Specific [place] 1.014 (1.001-1.035) Urine Protein Trace H (Negative) Urine Glucose (UA) Negative (Negative) Urine Ketones Negative (Negative) Urine Blood Trace H (Negative) Urine Nitrite Negative (Negative) Urine Bilirubin Negative (Negative) Urine Urobilinogen 6.0 (<2.0) mg/dL Ur Leukocyte Esterase Large H (Negative) Urine RBC 6 H (0-5) /hpf Urine WBC 46 H (0-5) /hpf Urine WBC Clumps Many H (None) /hpf Urine Bacteria Moderate H (None) /hpf Urine Opiates Screen Not Detected (NotDetected) Ur Oxycodone Screen Not Detected (NotDetected) Urine Methadone Screen Not Detected (NotDetected) Ur Propoxyphene Screen Not Detected (NotDetected) Ur Barbiturates Screen Not Detected (NotDetected) U Tricyclic Antidepress Not Detected (NotDetected) Ur Phencyclidine Scrn Not Detected (NotDetected) Ur Amphetamines Screen Not Detected (NotDetected) U Methamphetamines Scrn Not Detected (NotDetected) U Benzodiazepines Scrn Not Detected (NotDetected) Urine Cocaine Screen Not Detected (NotDetected) U Marijuana (THC) Screen Not Detected (NotDetected) Serum Alcohol mg/dL Disposition Clinical Impression: Altered mental status, Hyponatremia, Hyperkalemia, Hepatic encephalopathy, UTI (urinary tract infection), Severe sepsis Disposition: ADMITTED IP TO THIS [facility] Condition: Serious Procedures - Central Line Placement Right SC Consent Obtained: emergent situation Patient Placed on Monitor/Pulse Ox: Yes MD Prep: mask, gown, gloves Central Line Prep: Chlorhexidine scrub Local Anesthesia Used: Lidocaine 1% Amount of Anesthesia Used (mls): 2 Complications: none, other (Unable to obtain subclavian vein despite 2 attempts) Right Femoral Consent Obtained: emergent situation Patient Placed on Monitor/Pulse Ox: Yes MD Prep: mask, gown, gloves Central Line Prep: Chlorhexidine scrub Local Anesthesia Used: Lidocaine 1% Amount of Anesthesia Used (mls): 2 Central Line Lumen Inserted: triple Central Line Position: good blood return, all ports aspirated, flushed, capped, sutured in place with 3-0 nylon Dressing Applied: Tegaderm Patient Tolerated Procedure: well Complications: none - Sepsis Sepsis Focused Exam #1 Time Sepsis Criteria Met: 13:21 Sepsis Focused Exam Date: 10/09/18 Sepsis Focused Exam Time: 16:50 Sepsis Focused Exam Complete: Yes Vital Signs & RN Notes Reviewed: Yes Capillary Refill: < 2 Seconds: Fingers, Toes Peripheral Pulses: Normal: Radial (R), Radial (L) Skin Color: Normal for Patient Respiratory Exam: normal lung sounds Cardiovascular Exam: tachycardia
[2018-10-09] MEDS: NOREPINEPHRINE 16 MG in SODIUM CHLORIDE 0.9% 250 ML IV SCH (17:05)
[2018-10-09 17:54] LABS: Glucose,Whole Blood 71 mg/dL (75-99)
--- NOTE | 2018-10-09 18:18 | XR ---
EXAMINATION: XR chest 1V portable DATE AND TIME: 10/09/2018 4:56 PM CLINICAL INDICATION: PHH; central line attempt TECHNIQUE: Supine portable COMPARISON: 10/09/2018 12:36 PM FINDINGS: The hemidiaphragms are markedly elevated, consistent with low lung inflation at the moment of x-ray exposure. Given this factor, the lungs appear to be clear bilaterally - without definite acu te pulmonary process. The image is taken in the supine patient position, which cannot exclude minimal peritoneum or pneumot horax. No definite pleural effusion evident. Mildly enlarged cardiac silhouette redemonstrated. No definite acute skeletal or soft tissue findings. IMPRESSION: Limited study.
[2018-10-09] MEDS ORDERED: HYDROCORTISONE SUCCINATE 100 MG/2 ML VIAL IV STA (18:19)
[2018-10-09 19:02] LABS: ABG Base Excess -10.2 mmol/L; ABG HCO3 15 mmol/L (21-25); ABG Oxygen Saturation 97.4 % (94-97); ABG PCO2 25 mmHg (35-45); ABG PH 7.39 (7.35-7.45); ABG PO2 88 mmHg (83-108); ABG TCO2 16 mmol/L (19-24)
[2018-10-09] MEDS: SODIUM CHLORIDE 0.9% 1,000 ML IV SCH ×2 (19:07→22:42)
[2018-10-09] MEDS: DEXTROSE 5% IN WATER 1,000 ML with SODIUM BICARB (1 MEQ/ML) 150 ML IV SCH (19:10)
[2018-10-09 19:11] LABS: Calcium 8.1 mg/dL (8.4-10.2)
[2018-10-09] MEDS ORDERED: VANCOMYCIN 1,000 MG in SODIUM CHLORIDE 0.9% 250 ML IVPB STA (19:28)
[2018-10-09] MEDS ORDERED: VANCOMYCIN IV PER PHARMACY 1 EACH MISC MISCELLANE PRN (19:40)
[2018-10-09] MEDS ORDERED: VANCOMYCIN 1,750 MG in SODIUM CHLORIDE 0.9% 500 ML 500 ML IVPB ONE (19:45)
[2018-10-09 21:32] LABS: Glucose,Whole Blood 109 mg/dL (75-99)
[2018-10-10] MEDS ORDERED: SODIUM CHLORIDE 0.9% 1,000 ML IV ONE ×2 (01:53→01:55)
[2018-10-10 03:37] LABS: Anisocytosis Slight; Basophils % (A) 0 %; Eosinophils % (A) 0 %; HGB 7.1 gm/dL (11.4-16.0); Hypochromasia Marked; Lymphocytes # (A) 0.5 k/uL (1.0-4.8); Lymphocytes % (A) 6 %; MCH 26.5 pg (25.0-35.0); MCHC 30.6 g/dL (31.0-37.0); MCV 86.6 fL (80.0-100.0); Mean Platelet Volume 7.2; Monocytes # (A) 0.2 k/uL (0-1.0); Monocytes % (A) 3 %; Neutrophils # (A) 8.6 k/uL (1.3-7.7); Neutrophils % (A) 91 %; Platelet Count 177 k/uL (150-450); RBC 2.66 m/uL (3.80-5.40); RDW 17.4 % (11.5-15.5); WBC 9.4 k/uL (3.8-10.6)
[2018-10-10 04:11] LABS: Albumin 2.1 g/dL (3.5-5.0); Calcium 7.7 mg/dL (8.4-10.2); Magnesium 2.4 mg/dL (1.6-2.3); Potassium 5.4 mmol/L (3.5-5.1); Total Bilirubin 2.2 mg/dL (0.2-1.3); Total Protein 4.7 g/dL (6.3-8.2)
[2018-10-10] MEDS: NOREPINEPHRINE 16 MG in SODIUM CHLORIDE 0.9% 250 ML IV SCH ×2 (07:07→18:16)
[2018-10-10] MEDS: LEVOTHYROXINE 25 MCG TAB PO SCH (07:09)
[2018-10-10] MEDS: DEXTROSE 5% IN WATER 1,000 ML with SODIUM BICARB (1 MEQ/ML) 150 ML IV SCH ×3 (08:03→23:31)
[2018-10-10] MEDS ORDERED: SODIUM BICARB 8.4% 50 ML SYR (1 MEQ/ML) IV STA (08:23)
[2018-10-10] MEDS ORDERED: SODIUM BICARBONATE TAB 650 MG TAB PO SCH (09:00)
[2018-10-10] MEDS ORDERED: PANTOPRAZOLE 40 MG/10 ML VIAL IV SCH (09:00)
[2018-10-10] MEDS ORDERED: INSULIN REGULAR 100 UNIT/ML VIAL IV ONE (09:24)
[2018-10-10] MEDS ORDERED: DEXTROSE 50%-WATER 50 ML SYRINGE IVP STA (09:24)
[2018-10-10] MEDS: MIDODRINE 5 MG TAB PO SCH ×3 (09:26→16:44)
[2018-10-10] MEDS: GABAPENTIN 100 MG CAP PO SCH ×3 (09:26→22:16)
[2018-10-10] MEDS: SODIUM BICARBONATE TAB 650 MG TAB PO SCH ×3 (09:27→22:16)
--- NOTE | 2018-10-10 10:19 | P.NPCON ---
History of Present Illness - Reason for Consult acute renal failure - History of Present Illness Reason for consultation: Acute kidney injury History of present illness: Patient is a 48-year-old female seen in renal consultation for acute kidney injury. Her baseline creatinine is near 1. It was elevated at 3.47 on admission and is 3.0 today. Patient presented to the hospital with fatigue and change in mental status. Patient has history of liver cirrhosis. She is currently in the intensive care unit. Patient states she is tired. She is not providing much history. Potassium level was 7.1 on admission and is 5.6 this morning. She was maintained on Aldactone as an outpatient. All diuretics are currently held. Urine output has been about 20-30 mL an hour. She is currently on 20 mics of Levophed. She remains acidotic with a bicarb level of 11. She has received nearly 4 L of normal saline since admission. Currently maintained on bicarbonate drip running at 100 mL an hour. Vital signs are stable - requiring vasopressor support. General: The patient appeared well nourished and normally developed. HEENT: Head exam is unremarkable. Neck is without jugular venous distension. LUNGS: Lungs are clear to auscultation and percussion. Breath sounds decreased. HEART: Rate and Rhythm are regular. First and second heart sounds normal. No murmurs, rubs or gallops. ABDOMEN: Soft. Bowel sounds present. EXTREMITITES: No clubbing, cyanosis, or edema. Past Medical History Past Medical History: GI Bleed, Liver Disease Additional Past Medical History / Comment(s): ascites,"hernia", gi bleed/anemia -required blood transfusions History of Any Multi-Drug Resistant Organisms: None Reported Past Surgical History: Bariatric Surgery, Section, Hysterectomy, Tonsillectomy Additional Past Surgical History / Comment(s): gastric bypass in 2002, recurrent paracentesis,colonoscopy, egd w/apc/variceal banding/bx Past Anesthesia/Blood Transfusion Reactions: No Reported Reaction Additional Past Anesthesia/Blood Transfusion Reaction / Comment(s): blood transfusions Smoking Status: Current every day smoker - Past Family History Mother History Unknown: Yes Family Medical History: Congestive Heart Failure (CHF), COPD Father History Unknown: Yes Family Medical History: Diabetes Mellitus Medications and Allergies Home Medications Medication Instructions Recorded Confirmed Type ALPRAZolam [Xanax] 0.5 mg PO DAILY PRN #10 tab 09/05/18 10/09/18 Rx Ferrous Sulfate [Feosol] 325 mg PO BID #60 tab 09/05/18 10/09/18 Rx Gabapentin [Neurontin] 100 mg PO TID #90 cap 09/05/18 10/09/18 Rx Midodrine [ProAmatine] 10 mg PO AC-TID #90 tab 09/05/18 10/09/18 Rx Furosemide [Lasix] 60 mg PO DAILY 10/09/18 10/09/18 History Sodium Bicarbonate Tab 650 mg PO BID 10/09/18 10/09/18 History Spironolactone [Aldactone] 50 mg PO TID 10/09/18 10/09/18 History Allergies Allergy/AdvReac Type Severity Reaction Status Date / Time adhesive tape Allergy Rash/Hives Verified 10/09/18 14:35 Physical Exam Vitals: Vital Signs Temp Pulse Resp BP Pulse Ox 10/10/18 09:30 105 H 16 100/70 96 10/10/18 09:00 100 17 89/54 97 10/10/18 08:30 94 14 120/58 97 10/10/18 08:00 100 14 99/59 96 10/10/18 07:30 96 13 117/80 97 10/10/18 07:00 101 H 16 119/66 97 10/10/18 06:30 108 H 23 94/61 95 10/10/18 06:00 105 H 17 91/51 97 10/10/18 05:30 108 H 17 124/74 97 10/10/18 05:00 102 H 13 99/61 97 10/10/18 04:30 110 H 22 102/62 98 10/10/18 04:00 97.9 F 110 H 16 111/84 97 10/10/18 03:30 113 H 20 102/86 100 10/10/18 03:00 111 H 17 107/54 99 10/10/18 02:30 111 H 17 92/40 98 10/10/18 02:00 108 H 14 98/39 98 10/10/18 01:30 107 H 15 94/38 97 10/10/18 01:00 112 H 21 108/49 98 10/10/18 00:30 113 H 22 103/56 98 10/10/18 00:00 98.6 F 115 H 22 110/46 99 10/09/18 23:48 116 H 10/09/18 23:30 116 H 21 86/37 10/09/18 23:00 109 H 20 87/46 10/09/18 22:50 100 10/09/18 22:33 103 H 10/09/18 22:30 105 H 20 110/63 10/09/18 22:00 106 H 13 92/58 10/09/18 21:30 103 H 17 108/54 10/09/18 21:00 105 H 22 101/60 10/09/18 20:30 109 H 26 H 103/47 10/09/18 20:00 98.6 F 103 H 15 81/55 97 10/09/18 19:30 110 H 21 103/50 10/09/18 18:45 101 H 14 100/78 99 10/09/18 18:30 106 H 18 84/48 99 10/09/18 18:15 104 H 19 99/54 99 10/09/18 18:00 101 H 18 97/31 99 10/09/18 16:52 101 H 20 102/66 96 10/09/18 16:27 100 22 88/41 97 10/09/18 15:31 98 20 106/77 98 10/09/18 15:27 99 20 109/58 98 10/09/18 15:00 100 21 88/38 10/09/18 14:30 105 H 18 112/50 10/09/18 14:13 99 10/09/18 14:03 96 10/09/18 14:00 93 18 107/81 98 10/09/18 13:30 95 16 87/31 10/09/18 13:00 86 20 93/41 100 10/09/18 12:50 92 17 104/32 100 10/09/18 12:40 78 18 91/43 100 10/09/18 12:30 91/43 10/09/18 12:20 91/43 10/09/18 12:10 97 19 101/38 10/09/18 12:00 92 19 91/51 10/09/18 11:50 93 21 99/38 10/09/18 11:40 86 18 89/45 10/09/18 11:30 108/60 10/09/18 11:27 108/60 100 10/09/18 11:22 97.6 F 87 18 99/38 97 Intake and Output 10/09/18 10/10/18 10/10/18 22:59 06:59 14:59 Intake Total 829.82 1953.810 586.864 Output Total 75 195 65 Balance 754.82 1758.810 521.864 Intake: IV 340 180 60 Sodium Chloride 0.9% 1, 340 180 60 000 ml @ 100 mls/hr IV . Q10H ONE Rx#:[id number] Intake, IV Titration 364.82 1348.810 526.864 Amount Dextrose 5% in Water 1, 425 000 ml @ 125 mls/hr IV . Q9H12M DOMINIQUE with Sodium Bicarb (1 Meq/ml) 150 ml Rx#:[id number] Norepinephrine 16 mg In 14.82 223.810 51.864 Sodium Chloride 0.9% 250 ml @ Titrate IV .Q0M DOMINIQUE Rx#:[id number] Sodium Chloride 0.9% 1, 350 1125 000 ml @ 999 mls/hr IV . Q1H1M ONE Rx#:[id number] cefTRIAXone 1,000 mg In 50 Sodium Chloride 0.9% 50 ml @ 100 mls/hr IVPB Q24HR [facility] Rx#:[id number] Oral 125 425 Output: Urine 75 195 65 Other: Voiding Method Indwelling Catheter Indwelling Catheter # Bowel Movements 1 1 Weight 120.3 kg Results - Lab Results Most recent lab results ABG pH 7.39 (7.35-7.45) 10/09/18 19:01 ABG pCO2 25 mmHg (35-45) L 10/09/18 19:01 ABG pO2 88 mmHg (83-108) 10/09/18 19:01 ABG HCO3 15 mmol/L (21-25) L 10/09/18 19:01 ABG O2 Saturation 97.4 % (94-97) H 10/09/18 19:01 Calcium 7.7 mg/dL (8.4-10.2) L 10/10/18 03:13 Magnesium 2.4 mg/dL (1.6-2.3) H 10/10/18 03:13 10/10/18 03:13 10/10/18 06:22 Assessment and Plan Plan: Assessment: 1. Acute kidney injury secondary to ATN secondary to hypotension/sepsis. Creatinine was 3.47 on admission and is 3.0 today. Baseline creatinine is near 1. 2. Hypovolemic hyponatremia improving with IV hydration. 3. Hyperkalemia secondary to acute kidney injury, metabolic acidosis and Aldactone. Improved with medical management. 4. Liver cirrhosis. 5. Altered mental status. Etiology is hepatic encephalopathy as well as UTI. 6. Metabolic acidosis secondary to acute kidney injury and lactic acidosis. 7. Hypotension secondary to sepsis. Currently on 20 mics of Levophed. Cortisol level normal. Plan: Increase rate of bicarbonate drip to 125 mL an hour. 3 Amps of bicarb IV push. Increase oral sodium bicarbonate to 3 times a day. Maintain midodrine. Wean vasopressors. Follow-up cultures. Repeat potassium level this afternoon. Avoid nephrotoxins. Continue to monitor renal function and urine output. If no improvement in renal function and urine output in the next 24-48 hours, will initiate renal replacement therapy. Thank you for the consultation. I will continue to follow the patient with you during her hospital stay.
[2018-10-10] MEDS ORDERED: FERROUS SULFATE 325 MG TAB PO SCH (12:30)
--- NOTE | 2018-10-10 12:55 | US ---
EXAMINATION TYPE: US abdomen limited DATE OF EXAM: 10/10/2018 COMPARISON: US CLINICAL HISTORY: liver disease, ascites, renal failure. Ascites is imaged in all 4 abdominal quadrants with largest fluid pocket in LLQ = 11.5cm A/P. IMPRESSION: Ascites
--- NOTE | 2018-10-10 13:36 | P.CNPUL ---
History of Present Illness Consult date: 10/10/18 Requesting physician: Srinivas Jones Reason for consult: other (ICU management) Chief complaint: Altered mental status History of present illness: This is a 48-year-old female with known history of liver cirrhosis, poor historian, confused, patient was brought into the ER yesterday, and the chief complaint was mostly change in mental status, fatigue, and known history of liver cirrhosis. The patient herself could not volunteer any information because she seems to be quite confused and encephalopathic. Patient was also noted to be hypotensive, did not respond to fluids after 2 L, hence the patient was placed on norepinephrine , presently at 17 mcg/m. On admission, the patient was found to have significant abnormal labs including elevated potassium of 7.1, she had poor urine output, and she was quite acidotic, bicarb level was 11. In the ER the patient received a total of 4 L of 0.9 normal saline. And she was placed on a bicarb drip running at 150 mL per hour at this point. Patient was admitted to the ICU, required norepinephrine, she was seen by wind farm designer morning, and The patient on bicarb drip at relatively higher dose. Looking at the patient's past medical history, she is known to have history of liver disease, history of chronic ascites, GI bleeding/anemia, previous bariatric surgery, history of paracentesis and history of esophageal varices banding. Patient was in the hospital as off second half of August of 2018, and at that time the patient had profound anemia with a hemoglobin of 6.8 , she was also hypotensive at the time, and responded well to blood transfusion. He had a total of 3 units of packed RBCs given during her last admission. She did undergo a paracentesis at the time, and she had 7.1 L of fluids removed. Her renal functioning didn't improve at the time of her discharge back on September 05/2018. Her liver cirrhosis was basically diagnosed to be related to alcohol. Review of Systems ROS unobtainable: due to mental status Past Medical History Past Medical History: GI Bleed, Liver Disease Additional Past Medical History / Comment(s): ascites,"hernia", gi bleed/anemia -required blood transfusions History of Any Multi-Drug Resistant Organisms: None Reported Past Surgical History: Bariatric Surgery, Section, Hysterectomy, Tonsillectomy Additional Past Surgical History / Comment(s): gastric bypass in 2002, recurrent paracentesis,colonoscopy, egd w/apc/variceal banding/bx Past Anesthesia/Blood Transfusion Reactions: No Reported Reaction Additional Past Anesthesia/Blood Transfusion Reaction / Comment(s): blood transfusions Smoking Status: Current every day smoker - Past Family History Mother History Unknown: Yes Family Medical History: Congestive Heart Failure (CHF), COPD Father History Unknown: Yes Family Medical History: Diabetes Mellitus Medications and Allergies Home Medications Medication Instructions Recorded Confirmed Type ALPRAZolam [Xanax] 0.5 mg PO DAILY PRN #10 tab 09/05/18 10/09/18 Rx Ferrous Sulfate [Feosol] 325 mg PO BID #60 tab 09/05/18 10/09/18 Rx Gabapentin [Neurontin] 100 mg PO TID #90 cap 09/05/18 10/09/18 Rx Midodrine [ProAmatine] 10 mg PO AC-TID #90 tab 09/05/18 10/09/18 Rx Furosemide [Lasix] 60 mg PO DAILY 10/09/18 10/09/18 History Sodium Bicarbonate Tab 650 mg PO BID 10/09/18 10/09/18 History Spironolactone [Aldactone] 50 mg PO TID 10/09/18 10/09/18 History Allergies Allergy/AdvReac Type Severity Reaction Status Date / Time adhesive tape Allergy Rash/Hives Verified 10/09/18 14:35 Physical Exam Vitals: Vital Signs Temp Pulse Resp BP Pulse Ox 10/10/18 13:00 98.9 F 93 19 95/61 97 10/10/18 12:30 98 15 107/63 96 10/10/18 12:00 98 16 112/61 96 10/10/18 11:30 97 17 117/65 97 10/10/18 11:00 100 19 114/62 98 10/10/18 10:30 102 H 19 118/48 98 10/10/18 10:00 107 H 27 H 94/81 97 10/10/18 09:30 105 H 16 100/70 96 10/10/18 09:00 100 17 89/54 97 10/10/18 08:30 94 14 120/58 97 10/10/18 08:00 100 19 99/59 96 10/10/18 07:30 96 13 117/80 97 10/10/18 07:00 101 H 16 119/66 97 10/10/18 06:30 108 H 23 94/61 95 10/10/18 06:00 105 H 17 91/51 97 10/10/18 05:30 108 H 17 124/74 97 10/10/18 05:00 102 H 13 99/61 97 10/10/18 04:30 110 H 22 102/62 98 10/10/18 04:00 97.9 F 110 H 16 111/84 97 10/10/18 03:30 113 H 20 102/86 100 10/10/18 03:00 111 H 17 107/54 99 10/10/18 02:30 111 H 17 92/40 98 10/10/18 02:00 108 H 14 98/39 98 10/10/18 01:30 107 H 15 94/38 97 10/10/18 01:00 112 H 21 108/49 98 10/10/18 00:30 113 H 22 103/56 98 10/10/18 00:00 98.6 F 115 H 22 110/46 99 10/09/18 23:48 116 H 10/09/18 23:30 116 H 21 86/37 10/09/18 23:00 109 H 20 87/46 10/09/18 22:50 100 10/09/18 22:33 103 H 10/09/18 22:30 105 H 20 110/63 10/09/18 22:00 106 H 13 92/58 10/09/18 21:30 103 H 17 108/54 10/09/18 21:00 105 H 22 101/60 10/09/18 20:30 109 H 26 H 103/47 10/09/18 20:00 98.6 F 103 H 15 81/55 97 10/09/18 19:30 110 H 21 103/50 10/09/18 18:45 101 H 14 100/78 99 10/09/18 18:30 106 H 18 84/48 99 10/09/18 18:15 104 H 19 99/54 99 10/09/18 18:00 101 H 18 97/31 99 10/09/18 16:52 101 H 20 102/66 96 10/09/18 16:27 100 22 88/41 97 10/09/18 15:31 98 20 106/77 98 10/09/18 15:27 99 20 109/58 98 10/09/18 15:00 100 21 88/38 10/09/18 14:30 105 H 18 112/50 10/09/18 14:13 99 10/09/18 14:03 96 10/09/18 14:00 93 18 107/81 98 10/09/18 13:30 95 16 87/31 Intake and Output 10/09/18 10/10/18 10/10/18 22:59 06:59 14:59 Intake Total 829.82 1246.766 6591.288 Output Total 75 195 110 Balance 754.82 7933.958 6045.288 Intake: IV 340 180 600 0.9NS Bolus 500 Sodium Chloride 0.9% 1, 340 180 100 000 ml @ 100 mls/hr IV . Q10H ONE Rx#:[id number] Intake, IV Titration 364.82 1348.810 889.288 Amount Dextrose 5% in Water 1, 725 000 ml @ 150 mls/hr IV . Q7H40M [facility]INIQUE with Sodium Bicarb (1 Meq/ml) 150 ml Rx#:[id number] Norepinephrine 16 mg In 14.82 223.810 114.288 Sodium Chloride 0.9% 250 ml @ Titrate IV .Q0M [facility] Rx#:[id number] Sodium Chloride 0.9% 1, 350 1125 000 ml @ 999 mls/hr IV . Q1H1M ONE Rx#:[id number] cefTRIAXone 1,000 mg In 50 Sodium Chloride 0.9% 50 ml @ 100 mls/hr IVPB Q24HR [facility] Rx#:[id number] Oral 125 425 Output: Urine 75 195 110 Other: Voiding Method Indwelling Catheter Indwelling Catheter Indwelling Catheter # Bowel Movements 1 1 Weight 120.3 kg Physical Exam: Revealed a 48-year-old female, obese, in no form of respiratory distress, confused, and disoriented. Head: Atraumatic normocephalic. HEENT:[Neck is supple.] [No neck masses.] [No thyromegaly.] [No JVD.] PERRLA, EOMI, no icterus. Dry mucous membranes. Chest: [Clear throughout, no crackles, no rhonchi, no wheezes.] Cardiac Exam: [Normal S1 and S2, no S3 gallop, no murmur.] Abdomen: [Obese, Soft, nontender, no megaly, no rebound, no guarding, normal bowel sounds. Positive ascites.] Extremities: [No clubbing, trace of bipedal edema, no cyanosis.] Neurological Exam: Patient is confused, encephalopathic, disoriented, otherwise no gross focal neurologic deficit. Skin: No rashes. Looks pale. Results - Laboratory Findings CBC and BMP: 10/10/18 03:13 10/10/18 06:22 ABG ABG pH 7.39 (7.35-7.45) 10/09/18 19:01 ABG pCO2 25 mmHg (35-45) L 10/09/18 19:01 ABG pO2 88 mmHg (83-108) 10/09/18 19:01 ABG O2 Saturation 97.4 % (94-97) H 10/09/18 19:01 PT/INR, D-dimer PT 16.4 sec (9.0-12.0) H 10/09/18 11:24 INR 1.6 (<1.2) H 10/09/18 11:24 Abnormal lab findings: Abnormal Labs 10/09/18 10/09/18 10/09/18 11:22 11:24 11:24 RBC 2.93 L Hgb 8.0 L Hct 24.4 L MCHC RDW 17.6 H Neutrophils # Lymphocytes # 0.7 L PT INR APTT ABG pCO2 ABG HCO3 ABG Total CO2 ABG O2 Saturation Sodium Potassium Chloride Carbon Dioxide BUN Creatinine Glucose POC Glucose (mg/dL) 100 H Plasma Lactic Acid Alex Calcium Magnesium Total Bilirubin AST Ammonia Total Creatine Kinase 195 H CK-MB (CK-2) 4.6 H Total Protein Albumin Urine Appearance Urine Protein Urine Blood Ur Leukocyte Esterase Urine RBC Urine WBC Urine WBC Clumps Urine Bacteria 10/09/18 10/09/18 10/09/18 11:24 11:24 11:24 RBC Hgb Hct MCHC RDW Neutrophils # Lymphocytes # PT 16.4 H INR 1.6 H APTT 34.4 H ABG pCO2 ABG HCO3 ABG Total CO2 ABG O2 Saturation Sodium 122 L Potassium 7.1 H* Chloride 95 L Carbon Dioxide 15 L BUN 84 H Creatinine 3.47 H Glucose POC Glucose (mg/dL) Plasma Lactic Acid Alex Calcium Magnesium Total Bilirubin 2.3 H AST 93 H Ammonia 40 H Total Creatine Kinase CK-MB (CK-2) Total Protein 5.3 L Albumin 2.5 L Urine Appearance Urine Protein Urine Blood Ur Leukocyte Esterase Urine RBC Urine WBC Urine WBC Clumps Urine Bacteria 10/09/18 10/09/18 10/09/18 12:06 14:08 16:54 RBC Hgb Hct MCHC RDW Neutrophils # Lymphocytes # PT INR APTT ABG pCO2 ABG HCO3 ABG Total CO2 ABG O2 Saturation Sodium Potassium Chloride Carbon Dioxide BUN Creatinine Glucose POC Glucose (mg/dL) 182 H Plasma Lactic Acid Alex 4.4 H* Calcium Magnesium Total Bilirubin AST Ammonia Total Creatine Kinase CK-MB (CK-2) Total Protein Albumin Urine Appearance Cloudy H Urine Protein Trace H Urine Blood Trace H Ur Leukocyte Esterase Large H Urine RBC 6 H Urine WBC 46 H Urine WBC Clumps Many H Urine Bacteria Moderate H 10/09/18 10/09/18 10/09/18 17:43 18:31 19:01 RBC Hgb Hct MCHC RDW Neutrophils # Lymphocytes # PT INR APTT ABG pCO2 25 L ABG HCO3 15 L ABG Total CO2 16 L ABG O2 Saturation 97.4 H Sodium 124 L Potassium 6.0 H Chloride Carbon Dioxide 14 L BUN 82 H Creatinine 3.19 H Glucose 72 L POC Glucose (mg/dL) 71 L Plasma Lactic Acid Alex Calcium 8.1 L Magnesium Total Bilirubin AST Ammonia Total Creatine Kinase CK-MB (CK-2) Total Protein Albumin Urine Appearance Urine Protein Urine Blood Ur Leukocyte Esterase Urine RBC Urine WBC Urine WBC Clumps Urine Bacteria 10/09/18 10/09/18 10/09/18 20:06 21:21 21:34 RBC Hgb Hct MCHC RDW Neutrophils # Lymphocytes # PT INR APTT ABG pCO2 ABG HCO3 ABG Total CO2 ABG O2 Saturation Sodium Potassium 6.1 H* Chloride Carbon Dioxide BUN Creatinine Glucose POC Glucose (mg/dL) 109 H Plasma Lactic Acid Alex 2.5 H* Calcium Magnesium Total Bilirubin AST Ammonia Total Creatine Kinase CK-MB (CK-2) Total Protein Albumin Urine Appearance Urine Protein Urine Blood Ur Leukocyte Esterase Urine RBC Urine WBC Urine WBC Clumps Urine Bacteria 10/10/18 10/10/18 10/10/18 00:38 03:13 03:13 RBC 2.66 L Hgb 7.1 L Hct 23.0 L MCHC 30.6 L RDW 17.4 H Neutrophils # 8.6 H Lymphocytes # 0.5 L PT INR APTT ABG pCO2 ABG HCO3 ABG Total CO2 ABG O2 Saturation Sodium 125 L Potassium 5.4 H Chloride Carbon Dioxide 11 L BUN 74 H Creatinine 3.00 H Glucose 182 H POC Glucose (mg/dL) Plasma Lactic Acid Alex 5.9 H* Calcium 7.7 L Magnesium 2.4 H Total Bilirubin 2.2 H AST 75 H Ammonia Total Creatine Kinase CK-MB (CK-2) Total Protein 4.7 L Albumin 2.1 L Urine Appearance Urine Protein Urine Blood Ur Leukocyte Esterase Urine RBC Urine WBC Urine WBC Clumps Urine Bacteria 10/10/18 10/10/18 10/10/18 06:22 06:22 10:24 RBC Hgb Hct MCHC RDW Neutrophils # Lymphocytes # PT INR APTT ABG pCO2 ABG HCO3 ABG Total CO2 ABG O2 Saturation Sodium Potassium 5.6 H Chloride Carbon Dioxide BUN Creatinine Glucose POC Glucose (mg/dL) Plasma Lactic Acid Alex 5.7 H* 5.2 H* Calcium Magnesium Total Bilirubin AST Ammonia Total Creatine Kinase CK-MB (CK-2) Total Protein Albumin Urine Appearance Urine Protein Urine Blood Ur Leukocyte Esterase Urine RBC Urine WBC Urine WBC Clumps Urine Bacteria - Diagnostic Findings Chest x-ray: image reviewed (No acute process was appreciated.) Assessment and Plan Assessment: Impression: 1 altered mental status secondary to metabolic encephalopathy secondary to alcohol liver disease and liver cirrhosis. Mostly hepatic encephalopathy. 2 acute hypotension, requiring significant amount of fluids and pressors, could very well be secondary to hypovolemia and intravascular depletion, however the possibility of sepsis is to be considered felt to be less likely at this point. 3 acute kidney injury secondary to acute tubular necrosis with hypotension. 4 acute hyperkalemia secondary to acute kidney injury and Aldactone. 5 acute urinary tract infection is suspected, possible sepsis, but again my clinical index of suspicion for sepsis is rather low. 6 acute metabolic acidosis secondary to acute kidney injury. 7 acute lactic acidosis, this could very well be related to the underlying liver disease, although the possibility of sepsis again is to be considered. But felt to be less likely. 8 hypotension, differential diagnoses for hypotension could be related to hypovolemia or related to sepsis. Recommendation: Continue present treatment plan including fluids, sodium bicarb drip, maintained the patient on midodrine, titrate and possibly weaning norepinephrine, however need to maintain an adequate mean arterial pressure of above 60. Continue to monitor electrolytes, monitor ammonia level and continue lactulose. Avoid nephrotoxic drugs. Check cultures including blood cultures and urine cultures. We'll continue to follow and monitor in the ICU. Prognosis is definitely poor and guarded, we will ask GI to evaluate, patient may actually require paracentesis again. I have instructed the nurses to check bladder pressures also. Patient is an excellent set up for possible abdominal compartment syndrome. Clearly the patient is critically ill, and we'll continue to follow in the ICU. Also the patient is to be monitored for potential alcohol withdrawal. Time with Patient: Greater than 30
--- NOTE | 2018-10-10 14:35 | CT ---
EXAMINATION TYPE: CT brain wo con DATE OF EXAM: 10/10/2018 COMPARISON: None HISTORY: 48-year-old female with confusion, altered mental status TECHNIQUE: Examination was done in axial plane without intravenous contrast. Coronal and sagittal r econstructions performed. CT DLP: 2304.1 mGycm Automated exposure control for dose reduction was used. FINDINGS: There is no evidence of acute intracranial hemorrhage, acute ischemic changes, mass, mass-effect, or extra-axial fluid collection. There is no effacement of cerebral sulci or basal subarachnoid cister ns. There is no hydrocephalus. There is no midline shift. Mata-white matter distinction is preserv ed. Some the mild calvarial artifacts are present especially towards the skull base. Paranasal sinuses and mastoid air cells well pneumatized. Orbits and globes are intact. IMPRESSION: The patient was rescanned due to motion. Allowing for mild artifacts, no acute intracranial abnormali ty seen.
[2018-10-10 15:32] LABS: Glucose,Whole Blood 185 mg/dL (75-99)
--- NOTE | 2018-10-10 16:23 | XR ---
EXAMINATION TYPE: XR chest 1V portable DATE OF EXAM: 10/10/2018 COMPARISON: Prior chest x-ray 10/09/2017 HISTORY: NG tube placement TECHNIQUE: Single frontal view of the chest is obtained. FINDINGS: NG tube has been placed in the interval, the catheter courses into the stomach and may be coiled, distal tip not seen with certainty. There are overlying leads present. No other interval caicedo ge. IMPRESSION: NG tube courses into the level of the stomach.
[2018-10-10] MEDS: LACTULOSE 20 GM/30 ML CUP PO SCH ×2 (18:11→22:16)
--- NOTE | 2018-10-10 20:19 | P.HPIM ---
History of Present Illness H&P Date: 10/10/18 Chief Complaint: Change in mental status This is a pleasant 48-year-old white female who was admitted to the intensive care with a acute mental status changes and sepsis she is in and out of sleep I did wake her up this morning and she knew I was after some prompting. She apparently was having some form of urinary tract infection which led her to the hospital with mental status changes. She is known history of liver cirrhosis and is relatively new patient to me in the office with only one visit her review of systems was not obtained at this time secondary to patient being confused. Review of Systems ROS unobtainable: due to mental status Past Medical History Past Medical History: GI Bleed, Liver Disease Additional Past Medical History / Comment(s): ascites,"hernia", gi bleed/anemia -required blood transfusions History of Any Multi-Drug Resistant Organisms: None Reported Past Surgical History: Bariatric Surgery, Section, Hysterectomy, Tonsillectomy Additional Past Surgical History / Comment(s): gastric bypass in 2002, recurrent paracentesis,colonoscopy, egd w/apc/variceal banding/bx Past Anesthesia/Blood Transfusion Reactions: No Reported Reaction Additional Past Anesthesia/Blood Transfusion Reaction / Comment(s): blood transfusions Smoking Status: Current every day smoker - Past Family History Mother History Unknown: Yes Family Medical History: Congestive Heart Failure (CHF), COPD Father History Unknown: Yes Family Medical History: Diabetes Mellitus Medications and Allergies Home Medications Medication Instructions Recorded Confirmed Type ALPRAZolam [Xanax] 0.5 mg PO DAILY PRN #10 tab 09/05/18 10/09/18 Rx Ferrous Sulfate [Feosol] 325 mg PO BID #60 tab 09/05/18 10/09/18 Rx Gabapentin [Neurontin] 100 mg PO TID #90 cap 09/05/18 10/09/18 Rx Midodrine [ProAmatine] 10 mg PO AC-TID #90 tab 09/05/18 10/09/18 Rx Furosemide [Lasix] 60 mg PO DAILY 10/09/18 10/09/18 History Sodium Bicarbonate Tab 650 mg PO BID 10/09/18 10/09/18 History Spironolactone [Aldactone] 50 mg PO TID 10/09/18 10/09/18 History Allergies Allergy/AdvReac Type Severity Reaction Status Date / Time adhesive tape Allergy Rash/Hives Verified 10/09/18 14:35 Physical Exam Osteopathic Statement: *. No significant issues noted on an osteopathic structural exam other than those noted in the History and Physical/Consult. Vitals: Vital Signs Temp Pulse Resp BP Pulse Ox 10/10/18 19:00 96 16 113/71 96 10/10/18 18:00 88 12 110/66 97 10/10/18 17:00 96 16 105/74 98 10/10/18 16:00 95 17 116/76 97 10/10/18 15:00 84 11 L 118/68 97 10/10/18 14:00 85 12 98/53 96 10/10/18 13:00 98.9 F 93 19 95/61 97 10/10/18 12:30 98 15 107/63 96 10/10/18 12:00 98 11 L 112/61 96 10/10/18 11:30 97 17 117/65 97 10/10/18 11:00 100 19 114/62 98 10/10/18 10:30 102 H 19 118/48 98 10/10/18 10:00 107 H 27 H 94/81 97 10/10/18 09:30 105 H 16 100/70 96 10/10/18 09:00 100 17 89/54 97 10/10/18 08:30 94 14 120/58 97 10/10/18 08:00 100 19 99/59 96 10/10/18 07:30 96 13 117/80 97 10/10/18 07:00 101 H 16 119/66 97 10/10/18 06:30 108 H 23 94/61 95 10/10/18 06:00 105 H 17 91/51 97 10/10/18 05:30 108 H 17 124/74 97 10/10/18 05:00 102 H 13 99/61 97 10/10/18 04:30 110 H 22 102/62 98 10/10/18 04:00 97.9 F 110 H 16 111/84 97 10/10/18 03:30 113 H 20 102/86 100 10/10/18 03:00 111 H 17 107/54 99 10/10/18 02:30 111 H 17 92/40 98 10/10/18 02:00 108 H 14 98/39 98 10/10/18 01:30 107 H 15 94/38 97 10/10/18 01:00 112 H 21 108/49 98 10/10/18 00:30 113 H 22 103/56 98 10/10/18 00:00 98.6 F 115 H 22 110/46 99 10/09/18 23:48 116 H 10/09/18 23:30 116 H 21 86/37 10/09/18 23:00 109 H 20 87/46 10/09/18 22:50 100 10/09/18 22:33 103 H 10/09/18 22:30 105 H 20 110/63 10/09/18 22:00 106 H 13 92/58 10/09/18 21:30 103 H 17 108/54 10/09/18 21:00 105 H 22 101/60 10/09/18 20:30 109 H 26 H 103/47 Intake and Output 10/10/18 10/10/18 10/10/18 06:59 14:59 22:59 Intake Total 6190.554 5490.288 932.175 Output Total 195 165 130 Balance 3154.165 0264.288 802.175 Intake: IV 180 640 100 0.9NS Bolus 500 Sodium Chloride 0.9% 1, 180 140 100 000 ml @ 100 mls/hr IV . Q10H ONE Rx#:[id number] Intake, IV Titration 2151.226 2683.288 832.175 Amount Dextrose 5% in Water 1, 1025 750 000 ml @ 150 mls/hr IV . Q7H40M [facility]INIQUE with Sodium Bicarb (1 Meq/ml) 150 ml Rx#:[id number] Norepinephrine 16 mg In 223.810 114.288 82.175 Sodium Chloride 0.9% 250 ml @ Titrate IV .Q0M DOM[facility]QUE Rx#:[id number] Sodium Chloride 0.9% 1, 1125 000 ml @ 999 mls/hr IV . Q1H1M ONE Rx#:[id number] cefTRIAXone 1,000 mg In 50 Sodium Chloride 0.9% 50 ml @ 100 mls/hr IVPB Q24HR [facility] Rx#:[id number] Oral 425 Output: Urine 195 165 130 Other: Voiding Method Indwelling Catheter Indwelling Catheter Indwelling Catheter # Bowel Movements 1 Weight 120.3 kg - Constitutional General appearance: mild distress, morbidly obese - EENT Eyes: PERRLA ENT: hearing grossly normal - Neck Neck: no lymphadenopathy - Cardiovascular Rhythm: regular - Gastrointestinal General gastrointestinal: distended, hepatomegaly, normal bowel sounds, soft - Integumentary Integumentary: pale - Neurologic Neurologic: CNII-XII intact - Musculoskeletal Musculoskeletal: strength equal bilaterally - Psychiatric Profound mental status changes and excessive drowsiness Results CBC & Chem 7: 10/10/18 03:13 10/10/18 17:42 Labs: Abnormal Lab Results - Last 24 Hours (Table) 10/09/18 10/09/18 10/09/18 Range/Units 18:31 20:06 21:21 RBC (3.80-5.40) m/uL Hgb (11.4-16.0) gm/dL Hct (34.0-46.0) % MCHC (31.0-37.0) g/dL RDW (11.5-15.5) % Neutrophils # (1.3-7.7) k/uL Lymphocytes # (1.0-4.8) k/uL Sodium 124 L (137-145) mmol/L Potassium 6.0 H (3.5-5.1) mmol/L Carbon Dioxide 14 L (22-30) mmol/L BUN 82 H (7-17) mg/dL Creatinine 3.19 H (0.52-1.04) mg/dL Glucose 72 L (74-99) mg/dL POC Glucose (mg/dL) 109 H (75-99) mg/dL Plasma Lactic Acid Alex 2.5 H* (0.7-2.0) mmol/L Calcium 8.1 L (8.4-10.2) mg/dL Magnesium (1.6-2.3) mg/dL Total Bilirubin (0.2-1.3) mg/dL AST (14-36) U/L Ammonia (<30) umol/L Total Protein (6.3-8.2) g/dL Albumin (3.5-5.0) g/dL 10/09/18 10/10/18 10/10/18 Range/Units 21:34 00:38 03:13 RBC 2.66 L (3.80-5.40) m/uL Hgb 7.1 L (11.4-16.0) gm/dL Hct 23.0 L (34.0-46.0) % MCHC 30.6 L (31.0-37.0) g/dL RDW 17.4 H (11.5-15.5) % Neutrophils # 8.6 H (1.3-7.7) k/uL Lymphocytes # 0.5 L (1.0-4.8) k/uL Sodium (137-145) mmol/L Potassium 6.1 H* (3.5-5.1) mmol/L Carbon Dioxide (22-30) mmol/L BUN (7-17) mg/dL Creatinine (0.52-1.04) mg/dL Glucose (74-99) mg/dL POC Glucose (mg/dL) (75-99) mg/dL Plasma Lactic Acid Alex 5.9 H* (0.7-2.0) mmol/L Calcium (8.4-10.2) mg/dL Magnesium (1.6-2.3) mg/dL Total Bilirubin (0.2-1.3) mg/dL AST (14-36) U/L Ammonia (<30) umol/L Total Protein (6.3-8.2) g/dL Albumin (3.5-5.0) g/dL 10/10/18 10/10/18 10/10/18 Range/Units 03:13 06:22 06:22 RBC (3.80-5.40) m/uL Hgb (11.4-16.0) gm/dL Hct (34.0-46.0) % MCHC (31.0-37.0) g/dL RDW (11.5-15.5) % Neutrophils # (1.3-7.7) k/uL Lymphocytes # (1.0-4.8) k/uL Sodium 125 L (137-145) mmol/L Potassium 5.4 H 5.6 H (3.5-5.1) mmol/L Carbon Dioxide 11 L (22-30) mmol/L BUN 74 H (7-17) mg/dL Creatinine 3.00 H (0.52-1.04) mg/dL Glucose 182 H (74-99) mg/dL POC Glucose (mg/dL) (75-99) mg/dL Plasma Lactic Acid Alex 5.7 H* (0.7-2.0) mmol/L Calcium 7.7 L (8.4-10.2) mg/dL Magnesium 2.4 H (1.6-2.3) mg/dL Total Bilirubin 2.2 H (0.2-1.3) mg/dL AST 75 H (14-36) U/L Ammonia (<30) umol/L Total Protein 4.7 L (6.3-8.2) g/dL Albumin 2.1 L (3.5-5.0) g/dL 10/10/18 10/10/18 10/10/18 Range/Units 10:24 14:12 15:19 RBC (3.80-5.40) m/uL Hgb (11.4-16.0) gm/dL Hct (34.0-46.0) % MCHC (31.0-37.0) g/dL RDW (11.5-15.5) % Neutrophils # (1.3-7.7) k/uL Lymphocytes # (1.0-4.8) k/uL Sodium (137-145) mmol/L Potassium (3.5-5.1) mmol/L Carbon Dioxide (22-30) mmol/L BUN (7-17) mg/dL Creatinine (0.52-1.04) mg/dL Glucose (74-99) mg/dL POC Glucose (mg/dL) 185 H (75-99) mg/dL Plasma Lactic Acid Alex 5.2 H* (0.7-2.0) mmol/L Calcium (8.4-10.2) mg/dL Magnesium (1.6-2.3) mg/dL Total Bilirubin (0.2-1.3) mg/dL AST (14-36) U/L Ammonia 60 H (<30) umol/L Total Protein (6.3-8.2) g/dL Albumin (3.5-5.0) g/dL Microbiology - Last 24 Hours (Table) 10/10/18 04:30 Urine Culture - Preliminary Urine,Catheterized Thrombosis Risk Factor Assmnt - DVT/VTE Prophylaxis DVT/VTE Prophylaxis: Pharmacologic Prophylaxis ordered, Mechanical Prophylaxis ordered - Choose All That Apply Each Factor Represents 1 point: Age 41-60 years, Obesity (BMI >25), Sepsis (< 1month) Each Risk Factor Represents 2 Points: Central venous access Thrombosis Risk Factor Assessment Total Risk Factor Score: 5 Thrombosis Risk Factor Assessment Level: High Risk Assessment and Plan Assessment: Acute sepsis requiring pressors Hypokalemia Altered mental status Urinary tract infection Chronic liver disease cirrhosis Metabolic encephalopathy acute Anemia multifactorial Plan: Plan admit patient to intensive care for intensive care support patient is relatively new to my practice will have only seen one time in the office. We' ll continue to monitor patient corrector profound hypotension infectious disease and intensive care consultation and progress
[2018-10-10] MEDS: SODIUM CHLORIDE 0.9% 1,000 ML IV SCH (22:17)
[2018-10-11 05:52] LABS: Anisocytosis Slight; Basophils % (A) 0 %; Eosinophils # (A) 0.1 k/uL (0-0.7); Eosinophils % (A) 1 %; HCT 20.1 % (34.0-46.0); Lymphocytes # (A) 0.9 k/uL (1.0-4.8); Lymphocytes % (A) 10 %; MCH 25.9 pg (25.0-35.0); MCHC 31.9 g/dL (31.0-37.0); Mean Platelet Volume 7.2; Microcytosis Slight; Monocytes # (A) 0.5 k/uL (0-1.0); Monocytes % (A) 5 %; Neutrophils # (A) 7.2 k/uL (1.3-7.7); Neutrophils % (A) 81 %; Platelet Count 166 k/uL (150-450); RBC 2.48 m/uL (3.80-5.40); RDW 17.9 % (11.5-15.5); WBC 8.9 k/uL (3.8-10.6)
[2018-10-11 05:59] LABS: HGB 6.4 gm/dL (11.4-16.0)
[2018-10-11 06:00] LABS: MCV 81.2 fL (80.0-100.0)
[2018-10-11 06:01] LABS: INR 1.7 (<1.2); Partial Thromboplastin Time 35.7 sec (22.0-30.0); Prothrombin Time 16.6 sec (9.0-12.0)
[2018-10-11 06:27] LABS: Calcium 7.7 mg/dL (8.4-10.2); Magnesium 2.4 mg/dL (1.6-2.3); Phosphorus 6.8 mg/dL (2.5-4.5); Potassium 4.4 mmol/L (3.5-5.1); Total Bilirubin 2.1 mg/dL (0.2-1.3); Total Protein 4.5 g/dL (6.3-8.2)
[2018-10-11 06:32] LABS: Vancomycin,Random 11.1 ug/mL
[2018-10-11] MEDS: MIDODRINE 5 MG TAB PO SCH ×3 (06:49→17:28)
[2018-10-11] MEDS: LEVOTHYROXINE 25 MCG TAB PO SCH (06:49)
[2018-10-11] MEDS: PANTOPRAZOLE 40 MG TABLET PO SCH (06:49)
[2018-10-11] MEDS ORDERED: VANCOMYCIN 2,000 MG in SODIUM CHLORIDE 0.9% 500 ML 500 ML IVPB SCH (09:00)
--- NOTE | 2018-10-11 09:07 | P.CONS ---
History of Present Illness - Reason for Consult Consult date: 10/11/18 Cirrhosis ascites Requesting physician: Nicky Castillo - Chief Complaint Change in mental status - History of Present Illness 48-year-old female with a history of alcohol liver cirrhosis portal hypertension , ascites, anemia, esophageal varices, Willie-en-Y gastric bypass, small bowel AVM admitted with mental status changes hypotension acute kidney injury. Patient has been receiving large-volume weekly paracentesis. Patient was lethargic confused and obtunded upon admission more awake now and alert. Outpatient paracentesis postponed on admission secondary to mental status. Denies hematemesis hematochezia melena prior to admission. Denies abdominal pain. Blood urine cultures pending. Admission hemoglobin 8. White count 8.2. Platelet 173. INR 1.6. Sodium 122. Potassium 7.1. BUN 84. Creatinine 3.4. Total bili within 2.3. AST 93. ALT 41. AP 117. Ammonia 40. Lactic acid 4.4. Afebrile. Passing nonbloody bowel movements. Presently sodium 128. Potassium 4.4. BUN 78. Creatinine 2.3. Total bilirubin 2.1. AST 60. ALT 40. AP 117. Ammonia 47. EGD colonoscopy 08/30/2018 normal; upper endoscopy identified gastritis gastric remnant, small bowel AVM treated with APC. Banding of small distal esophageal varices. Hemoglobin this morning 6.4. Platelet 166. White count 8.9. INR 1.7. Ultrasound abdomen confirmed ascites. CT brain no acute intracranial abnormality seen. Review of Systems Constitutional: Denies fever, chills, sweats, weight gain, or loss. Admitted with mental status changes. Lethargy. Weakness. HEENT: Negative for migraines, blurred vision or loss, earaches, drainage, tinnitus, oral mucosal lesions, dysphagia, or odynophagia. CARDIAC: Negative for chest pain, arrhythmias, or palpitation. RESPIRATORY: Negative for shortness of breath, hemoptysis, cough, or sputum production. GI: See HPI for pertinent findings. : Negative for hematuria, urgency, frequency, polyuria, or dysuria. GYNc: Negative vaginal discharge. MUSCULOSKELETAL: Negative for muscle aches, swelling, arthritis, and arthralgias. NEUROLOGIC: Negative for stroke or TIA. ENDOCRINE: Negative for thyroid problems. SKIN: Negative for rash or itching. PSYCHIATRIC: Negative history for depression and anxiety Past Medical History Past Medical History: GI Bleed, Liver Disease Additional Past Medical History / Comment(s): ascites,"hernia", gi bleed/anemia -required blood transfusions History of Any Multi-Drug Resistant Organisms: None Reported Past Surgical History: Bariatric Surgery, Section, Hysterectomy, Tonsillectomy Additional Past Surgical History / Comment(s): gastric bypass in 2002, recurrent paracentesis,colonoscopy, egd w/apc/variceal banding/bx Past Anesthesia/Blood Transfusion Reactions: No Reported Reaction Additional Past Anesthesia/Blood Transfusion Reaction / Comm: blood transfusions Smoking Status: Current every day smoker - Past Family History Mother History Unknown: Yes Family Medical History: Congestive Heart Failure (CHF), COPD Father History Unknown: Yes Family Medical History: Diabetes Mellitus Medications and Allergies Home Medications Medication Instructions Recorded Confirmed Type ALPRAZolam [Xanax] 0.5 mg PO DAILY PRN #10 tab 09/05/18 10/09/18 Rx Ferrous Sulfate [Feosol] 325 mg PO BID #60 tab 09/05/18 10/09/18 Rx Gabapentin [Neurontin] 100 mg PO TID #90 cap 09/05/18 10/09/18 Rx Midodrine [ProAmatine] 10 mg PO AC-TID #90 tab 09/05/18 10/09/18 Rx Furosemide [Lasix] 60 mg PO DAILY 10/09/18 10/09/18 History Sodium Bicarbonate Tab 650 mg PO BID 10/09/18 10/09/18 History Spironolactone [Aldactone] 50 mg PO TID 10/09/18 10/09/18 History Allergies Allergy/AdvReac Type Severity Reaction Status Date / Time adhesive tape Allergy Rash/Hives Verified 10/09/18 14:35 Physical Exam Vitals: Vital Signs Temp Pulse Resp BP Pulse Ox 10/11/18 08:00 74 19 99/60 97 10/11/18 07:00 84 20 108/62 97 10/11/18 06:45 77 16 114/53 10/11/18 06:30 81 14 101/73 10/11/18 06:15 90 15 116/69 10/11/18 06:00 83 14 103/57 98 10/11/18 05:45 76 18 89/57 10/11/18 05:30 86 14 86/45 10/11/18 05:15 85 16 87/55 97 10/11/18 05:00 78 14 84/50 10/11/18 04:45 75 14 88/49 93 L 10/11/18 04:30 77 20 109/67 10/11/18 04:15 87 16 110/68 97 10/11/18 04:00 92 16 111/61 92 L 10/11/18 03:45 87 16 99/57 95 10/11/18 03:30 92 15 105/63 90 L 10/11/18 03:15 90 15 101/73 95 10/11/18 03:00 89 14 88/70 96 10/11/18 02:45 90 16 96/83 96 10/11/18 02:30 93 15 107/76 98 10/11/18 02:15 89 14 118/63 97 10/11/18 02:00 91 14 104/66 96 10/11/18 01:45 92 20 110/65 99 10/11/18 01:30 91 15 116/67 94 L 10/11/18 01:15 93 14 127/61 96 10/11/18 01:00 92 12 125/83 96 10/11/18 00:45 93 15 105/77 95 10/11/18 00:30 98.4 F 96 15 94/61 97 10/11/18 00:15 81 16 99/58 96 10/11/18 00:00 82 16 94/56 96 10/10/18 23:45 83 14 111/56 96 10/10/18 23:30 84 14 89/73 96 10/10/18 23:15 97 15 101/74 96 10/10/18 23:00 97 15 100/69 97 10/10/18 22:45 96 15 94/57 96 10/10/18 22:30 96 17 112/73 95 10/10/18 22:15 94 14 116/75 97 10/10/18 22:00 96 14 118/107 97 10/10/18 21:45 100 32 H 94/59 95 10/10/18 21:30 96 21 120/72 95 10/10/18 21:15 101 H 17 113/74 95 10/10/18 21:00 95 15 115/71 95 10/10/18 20:45 94 15 116/75 95 10/10/18 20:30 98 19 119/67 95 10/10/18 20:15 93 16 102/72 96 10/10/18 20:10 17 10/10/18 20:00 98.4 F 92 16 98/67 97 10/10/18 19:45 93 14 122/76 97 10/10/18 19:30 96 20 102/59 97 10/10/18 19:15 96 15 105/64 97 10/10/18 19:00 96 16 113/71 96 10/10/18 18:00 88 12 110/66 97 10/10/18 17:00 96 16 105/74 98 10/10/18 16:00 95 17 116/76 97 10/10/18 15:00 84 11 L 118/68 97 10/10/18 14:00 85 12 98/53 96 10/10/18 13:00 98.9 F 93 19 95/61 97 10/10/18 12:30 98 15 107/63 96 10/10/18 12:00 98 11 L 112/61 96 10/10/18 11:30 97 17 117/65 97 10/10/18 11:00 100 19 114/62 98 10/10/18 10:30 102 H 19 118/48 98 10/10/18 10:00 107 H 27 H 94/81 97 10/10/18 09:30 105 H 16 100/70 96 10/10/18 09:00 100 17 89/54 97 Intake and Output 10/10/18 10/11/18 10/11/18 22:59 06:59 14:59 Intake Total 2384.140 9360.500 300 Output Total 219 202 10 Balance 6884.419 2573.500 290 Intake: IV 640 1440 180 Dextrose 5% in Water 1, 450 1200 150 000 ml @ 150 mls/hr IV . Q7H40M [facility]INIQUE with Sodium Bicarb (1 Meq/ml) 150 ml Rx#:[id number] Sodium Chloride 0.9% 1, 130 000 ml @ 100 mls/hr IV . Q10H ONE Rx#:[id number] Sodium Chloride 0.9% 1, 60 240 30 000 ml @ 20 mls/hr IV . Q24H [facility] Rx#:[id number] Intake, IV Titration 870.169 77.500 Amount Dextrose 5% in Water 1, 750 000 ml @ 150 mls/hr IV . Q7H40M [facility] with Sodium Bicarb (1 Meq/ml) 150 ml Rx#:[id number] Norepinephrine 16 mg In 120.169 77.500 Sodium Chloride 0.9% 250 ml @ Titrate IV .Q0M [facility] Rx#:[id number] Oral 120 90 120 Other 30 Output: Urine 219 202 10 Other: Voiding Method Indwelling Catheter Indwelling Catheter # Bowel Movements 1 1 Weight 115.1 kg General appearance: The patient is alert, oriented, in no acute distress. HET: Head is normocephalic and atraumatic. Pupils are equal and reactive. Oropharynx is clear without lesions. Nasogastric tube clamped no drainage. Neck: Supple without lymphadenopathy. Trachea midline. Heart: S1 S2. Regular rate and rhythm. Lungs: No crackles or wheezes are heard. Abdomen: Soft, nontender, distended with moderate ascites bowel sounds normal . No peritoneal signs. No palpable organomegaly or masses. Extremities: Normal skin color and turgor. No cyanosis, rash, ulceration, clubbing, or edema. Radial and pedal pulses are 2/4 bilaterally. Neurological: No focal deficits. Strength and sensation are grossly intact. Results CBC & Chem 7: 10/11/18 05:13 10/11/18 05:13 Labs: Abnormal Lab Results - Last 24 Hours (Table) 10/10/18 10/10/18 10/10/18 Range/Units 10:24 14:12 15:19 RBC (3.80-5.40) m/uL Hgb (11.4-16.0) gm/dL Hct (34.0-46.0) % RDW (11.5-15.5) % Lymphocytes # (1.0-4.8) k/uL PT (9.0-12.0) sec INR (<1.2) APTT (22.0-30.0) sec Sodium (137-145) mmol/L Chloride (98-107) mmol/L BUN (7-17) mg/dL Creatinine (0.52-1.04) mg/dL Glucose (74-99) mg/dL POC Glucose (mg/dL) 185 H (75-99) mg/dL Plasma Lactic Acid Alex 5.2 H* (0.7-2.0) mmol/L Calcium (8.4-10.2) mg/dL Phosphorus (2.5-4.5) mg/dL Magnesium (1.6-2.3) mg/dL Total Bilirubin (0.2-1.3) mg/dL AST (14-36) U/L Ammonia 60 H (<30) umol/L Total Protein (6.3-8.2) g/dL Albumin (3.5-5.0) g/dL 10/11/18 10/11/18 10/11/18 Range/Units 05:13 05:13 05:13 RBC 2.48 L (3.80-5.40) m/uL Hgb 6.4 L* (11.4-16.0) gm/dL Hct 20.1 L (34.0-46.0) % RDW 17.9 H (11.5-15.5) % Lymphocytes # 0.9 L (1.0-4.8) k/uL PT 16.6 H (9.0-12.0) sec INR 1.7 H (<1.2) APTT 35.7 H (22.0-30.0) sec Sodium 128 L (137-145) mmol/L Chloride 94 L (98-107) mmol/L BUN 78 H (7-17) mg/dL Creatinine 2.32 H (0.52-1.04) mg/dL Glucose 123 H (74-99) mg/dL POC Glucose (mg/dL) (75-99) mg/dL Plasma Lactic Acid Alex (0.7-2.0) mmol/L Calcium 7.7 L (8.4-10.2) mg/dL Phosphorus 6.8 H (2.5-4.5) mg/dL Magnesium 2.4 H (1.6-2.3) mg/dL Total Bilirubin 2.1 H (0.2-1.3) mg/dL AST 60 H (14-36) U/L Ammonia (<30) umol/L Total Protein 4.5 L (6.3-8.2) g/dL Albumin 2.0 L (3.5-5.0) g/dL 10/11/18 Range/Units 05:13 RBC (3.80-5.40) m/uL Hgb (11.4-16.0) gm/dL Hct (34.0-46.0) % RDW (11.5-15.5) % Lymphocytes # (1.0-4.8) k/uL PT (9.0-12.0) sec INR (<1.2) APTT (22.0-30.0) sec Sodium (137-145) mmol/L Chloride (98-107) mmol/L BUN (7-17) mg/dL Creatinine (0.52-1.04) mg/dL Glucose (74-99) mg/dL POC Glucose (mg/dL) (75-99) mg/dL Plasma Lactic Acid Alex (0.7-2.0) mmol/L Calcium (8.4-10.2) mg/dL Phosphorus (2.5-4.5) mg/dL Magnesium (1.6-2.3) mg/dL Total Bilirubin (0.2-1.3) mg/dL AST (14-36) U/L Ammonia 47 H (<30) umol/L Total Protein (6.3-8.2) g/dL Albumin (3.5-5.0) g/dL Microbiology - Last 24 Hours (Table) 10/10/18 00:38 Blood Culture - Preliminary Blood No Growth after 24 hours 10/10/18 04:30 Urine Culture - Preliminary Urine,Catheterized US - abdomen: report reviewed (Dr. Carmona) Assessment and Plan (1) Altered mental status Narrative/Plan: 48-year-old female with a history of alcohol liver disease cirrhosis portal hypertension chronic ascites hepatic encephalopathy presents with acute mental status changes hyponatremia acute kidney injury with underlying anemia without active GI bleeding. EGD colonoscopy one month ago; normal colonoscopy gastritis gastric remnant small nonbleeding distal esophageal varices banded, small bowel AVM status post APC. Current Visit: Yes Status: Acute Code(s): R41.82 - ALTERED MENTAL STATUS, UNSPECIFIED SNOMED Code(s): 239520411 (2) Hepatic encephalopathy Current Visit: Yes Status: Acute Code(s): K72.90 - HEPATIC FAILURE, UNSPECIFIED WITHOUT COMA SNOMED Code(s): 27370722 (3) Acute kidney injury Current Visit: No Status: Acute Code(s): N17.9 - ACUTE KIDNEY FAILURE, UNSPECIFIED SNOMED Code(s): 09043670 (4) Anemia Current Visit: No Status: Acute Code(s): D64.9 - ANEMIA, UNSPECIFIED SNOMED Code(s): 206152613 (5) Ascites Current Visit: No Status: Acute Code(s): R18.8 - OTHER ASCITES SNOMED Code (s): 722747373 (6) Cirrhosis Current Visit: No Status: Acute Code(s): K74.60 - UNSPECIFIED CIRRHOSIS OF LIVER SNOMED Code(s): 09086565 (7) Coagulopathy Current Visit: No Status: Acute Code(s): D68.9 - COAGULATION DEFECT, UNSPECIFIED SNOMED Code(s): 80161038 (8) Hypotension Current Visit: Yes Status: Acute Code(s): I95.9 - HYPOTENSION, UNSPECIFIED SNOMED Code(s): 36432641 (9) Hyponatremia Current Visit: Yes Status: Acute Code(s): E87.1 - HYPO-OSMOLALITY AND HYPONATREMIA SNOMED Code(s): 77408570 Plan: 1. Overall patient is biochemically improving. Mental status is improved. Will remove nasogastric tube. Low-salt renal diet. Nephrology following closely we'll defer to their service for diuretic management secondary to TERRANCE. Interventional radiology consulted for paracentesis will send cultures cell count glucose. Inpatient endoscopic exams not planned at this time. Increase iron supplementation twice daily. GI prophylaxis Protonix 40 mg daily. Continue with IV Rocephin. Lactulose 30 g four times daily titrated 3-4 bowel movements. Will observe for overt signs of GI bleeding presently passing nonbloody bowel movements. Blood transfusion as indicated to keep hemoglobin greater than 7. CBC CMP PT/INR ammonia daily. Will follow closely with you. Thank you for this kind referral and the opportunity to participate in the care of your patient. This consultation was discussed with Dr. Carmona. The impression and plan of care have been directed as dictated.
[2018-10-11] MEDS: SODIUM CHLORIDE 0.9% 1,000 ML IV SCH ×4 (10:16→23:19)
[2018-10-11] MEDS: SODIUM BICARBONATE TAB 650 MG TAB PO SCH ×2 (10:17→21:05)
[2018-10-11] MEDS: FERROUS SULFATE 325 MG TAB PO SCH ×2 (10:18→21:05)
[2018-10-11] MEDS: GABAPENTIN 100 MG CAP PO SCH ×3 (10:18→21:05)
[2018-10-11] MEDS: LACTULOSE 20 GM/30 ML CUP PO SCH ×3 (10:21→21:05)
--- NOTE | 2018-10-11 10:26 | P.PN ---
Subjective Patient is seen in follow for acute kidney injury. Creatinine was 3.47 on admission and is down to 2.32 today. She is maintained on bicarb drip. Hemoglobin is 6.4 today. No active bleeding noted. She is more awake and alert. Denies chest pain or shortness of breath. Urine output 10-20 mL per hour. Vital signs are stable. General: The patient appeared well nourished and normally developed. HEENT: Head exam is unremarkable. Neck is without jugular venous distension. NG tube noted. LUNGS: Lungs are clear to auscultation and percussion. Breath sounds decreased. HEART: Rate and Rhythm are regular. First and second heart sounds normal. No murmurs, rubs or gallops. ABDOMEN: Abdominal exam reveals normal bowel sounds. Nontender. EXTREMITITES: No clubbing, cyanosis, or edema. Objective - Vital Signs Vital signs: Vital Signs Temp 97.5 F L 10/11/18 09:00 Pulse 80 10/11/18 09:00 Resp 15 10/11/18 09:00 BP 112/61 10/11/18 09:00 Pulse Ox 98 10/11/18 09:00 Intake & Output 10/10/18 10/11/18 10/11/18 18:59 06:59 18:59 Intake Total 2591.463 2505.494 300 Output Total 265 321 10 Balance 2326.463 2184.494 290 Weight 115.1 kg Intake: IV 720 2000 180 0.9NS Bolus 500 Dextrose 5% in Water 1, 1650 150 000 ml @ 150 mls/hr IV . Q7H40M [facility] with Sodium Bicarb (1 Meq/ml) 150 ml Rx#:[id number] Sodium Chloride 0.9% 1, 220 50 000 ml @ 100 mls/hr IV . Q10H ONE Rx#:[id number] Sodium Chloride 0.9% 1, 300 30 000 ml @ 20 mls/hr IV . Q24H [facility] Rx#:[id number] Intake, IV Titration 1871.463 265.494 Amount Dextrose 5% in Water 1, 1625 150 000 ml @ 150 mls/hr IV . Q7H40M [facility] with Sodium Bicarb (1 Meq/ml) 150 ml Rx#:[id number] Norepinephrine 16 mg In 196.463 115.494 Sodium Chloride 0.9% 250 ml @ Titrate IV .Q0M [facility] Rx#:[id number] cefTRIAXone 1,000 mg In 50 Sodium Chloride 0.9% 50 ml @ 100 mls/hr IVPB Q24HR [facility] Rx#:[id number] Oral 210 120 Other 30 Output: Urine 265 321 10 Other: Voiding Method Indwelling Catheter Indwelling Catheter # Bowel Movements 1 1 - Labs CBC & Chem 7: 10/11/18 05:13 10/11/18 05:13 Labs: Abnormal Lab Results - Last 24 Hours (Table) 10/10/18 10/10/18 10/10/18 Range/Units 10:24 14:12 15:19 RBC (3.80-5.40) m/uL Hgb (11.4-16.0) gm/dL Hct (34.0-46.0) % RDW (11.5-15.5) % Lymphocytes # (1.0-4.8) k/uL PT (9.0-12.0) sec INR (<1.2) APTT (22.0-30.0) sec Sodium (137-145) mmol/L Chloride (98-107) mmol/L BUN (7-17) mg/dL Creatinine (0.52-1.04) mg/dL Glucose (74-99) mg/dL POC Glucose (mg/dL) 185 H (75-99) mg/dL Plasma Lactic Acid Alex 5.2 H* (0.7-2.0) mmol/L Calcium (8.4-10.2) mg/dL Phosphorus (2.5-4.5) mg/dL Magnesium (1.6-2.3) mg/dL Total Bilirubin (0.2-1.3) mg/dL AST (14-36) U/L Ammonia 60 H (<30) umol/L Total Protein (6.3-8.2) g/dL Albumin (3.5-5.0) g/dL Crossmatch 10/11/18 10/11/18 10/11/18 Range/Units 05:13 05:13 05:13 RBC 2.48 L (3.80-5.40) m/uL Hgb 6.4 L* (11.4-16.0) gm/dL Hct 20.1 L (34.0-46.0) % RDW 17.9 H (11.5-15.5) % Lymphocytes # 0.9 L (1.0-4.8) k/uL PT 16.6 H (9.0-12.0) sec INR 1.7 H (<1.2) APTT 35.7 H (22.0-30.0) sec Sodium 128 L (137-145) mmol/L Chloride 94 L (98-107) mmol/L BUN 78 H (7-17) mg/dL Creatinine 2.32 H (0.52-1.04) mg/dL Glucose 123 H (74-99) mg/dL POC Glucose (mg/dL) (75-99) mg/dL Plasma Lactic Acid Alex (0.7-2.0) mmol/L Calcium 7.7 L (8.4-10.2) mg/dL Phosphorus 6.8 H (2.5-4.5) mg/dL Magnesium 2.4 H (1.6-2.3) mg/dL Total Bilirubin 2.1 H (0.2-1.3) mg/dL AST 60 H (14-36) U/L Ammonia (<30) umol/L Total Protein 4.5 L (6.3-8.2) g/dL Albumin 2.0 L (3.5-5.0) g/dL Crossmatch 10/11/18 10/11/18 Range/Units 05:13 08:20 RBC (3.80-5.40) m/uL Hgb (11.4-16.0) gm/dL Hct (34.0-46.0) % RDW (11.5-15.5) % Lymphocytes # (1.0-4.8) k/uL PT (9.0-12.0) sec INR (<1.2) APTT (22.0-30.0) sec Sodium (137-145) mmol/L Chloride (98-107) mmol/L BUN (7-17) mg/dL Creatinine (0.52-1.04) mg/dL Glucose (74-99) mg/dL POC Glucose (mg/dL) (75-99) mg/dL Plasma Lactic Acid Alex (0.7-2.0) mmol/L Calcium (8.4-10.2) mg/dL Phosphorus (2.5-4.5) mg/dL Magnesium (1.6-2.3) mg/dL Total Bilirubin (0.2-1.3) mg/dL AST (14-36) U/L Ammonia 47 H (<30) umol/L Total Protein (6.3-8.2) g/dL Albumin (3.5-5.0) g/dL Crossmatch See Detail Microbiology - Last 24 Hours (Table) 10/10/18 04:30 Urine Culture - Final Urine,Catheterized 10/10/18 00:38 Blood Culture - Preliminary Blood No Growth after 24 hours Assessment and Plan Plan: Assessment: 1. Acute kidney injury secondary to ATN secondary to hypotension/sepsis. Creatinine was 3.47 on admission and is 2.32 today. Baseline creatinine is near 1. 2. Hypovolemic hyponatremia improving with IV hydration. 3. Hyperkalemia secondary to acute kidney injury, metabolic acidosis and Aldactone. Improved with medical management. 4. Liver cirrhosis. 5. Altered mental status. Etiology is hepatic encephalopathy as well as UTI. 6. Metabolic acidosis secondary to acute kidney injury and lactic acidosis. Better. 7. Hypotension secondary to sepsis. Currently on 5 mics of Levophed. Cortisol level normal. 8. Hyperphosphatemia secondary to acute kidney injury. Plan: Discontinue bicarbonate drip. Start normal saline at 75 mL an hour for maintenance fluids. Decreased oral bicarbonate to 1300 mg twice daily. Maintain midodrine. Wean vasopressors. Follow-up cultures. Avoid nephrotoxins. Continue to monitor renal function and urine output. Scheduled for 1 unit of blood transfusion today. Monitor vancomycin levels closely. Keep level below 20. Add PhosLo with meals.
[2018-10-11] MEDS: CALCIUM ACETATE 667 MG CAP PO SCH ×2 (12:27→17:27)
--- NOTE | 2018-10-11 13:25 | CDI ---
Documentation Clarification Form Date: 10/11/2018 1:10:47 PM From: Tamar PerezNguyenANNALISE mireles, CCDS Admit Date: 10/09/2018 2:00:00 PM Patient Name: Cody Gillespie Visit Number: [id number] Discharge Date: ATTENTION: The Clinical Documentation Specialists (CDI) and [facility] Coding Staff appreciate your assistance in clarifying documentation. Please respond to the clarification below the line at the bottom and electronically sign. The CDI & [facility] Coding staff will review the response and follow-up if needed. Please note: Queries are made part of the Legal Health Record. If you have any questions, please contact the author of this message via ITS. Dr. Srinivas Jones: Per the History & Physical: Acute sepsis requiring pressors, hypovolemia is also documented, patient has also been diagnosed with TERRANCE secondary to ATN secondary to hypotension & Sepsis, UTI & hepatic & metabolic encephalopathy, admitted to ICU. Patient history/risk factors: Known liver cirrhosis possibly due to alcohol, previous GI bleed & ascites, Smoker. Clinical Indicators: Presented with altered mental status, metabolic encephalopathy. Vitals: BP 99/38 LAB: Hgb 8.0*, Na 122*, K 7.1^^, BUN 84^, Cr 3.47^, Ammonia 40^, Lactic Acid 4.4 ^^ Treatment: IV fluid boluses x5, IV fluid 100, IV Dextrose/Water, IV Insulin, IV Rocephin, IV NaBicarb, IV CalGluconate, IV Norepinephrine, IV SoluCortef, IV Vancomycin, IV Insulin. In your professional opinion, can you please specify the type of shock if known ? Septic Shock Hypovolemic Shock Other, please specify Unable to determine (Last Revision: June 2017) MTDD
--- NOTE | 2018-10-11 14:03 | P.PN ---
Subjective Progress Note Date: 10/11/18 Principal diagnosis: Acute metabolic encephalopathy secondary to alcohol liver disease and liver cirrhosis/hepatic encephalopathy and acute kidney injury. This is a 48-year-old female with known history of liver cirrhosis, poor historian, confused, patient was brought into the ER yesterday, and the chief complaint was mostly change in mental status, fatigue, and known history of liver cirrhosis. The patient herself could not volunteer any information because she seems to be quite confused and encephalopathic. Patient was also noted to be hypotensive, did not respond to fluids after 2 L, hence the patient was placed on norepinephrine , presently at 17 mcg/m. On admission, the patient was found to have significant abnormal labs including elevated potassium of 7.1, she had poor urine output, and she was quite acidotic, bicarb level was 11. In the ER the patient received a total of 4 L of 0.9 normal saline. And she was placed on a bicarb drip running at 150 mL per hour at this point. Patient was admitted to the ICU, required norepinephrine, she was seen by auto body straightener morning, and The patient on bicarb drip at relatively higher dose. Looking at the patient's past medical history, she is known to have history of liver disease, history of chronic ascites, GI bleeding/anemia, previous bariatric surgery, history of paracentesis and history of esophageal varices banding. Patient was in the hospital as off second half of August of 2018, and at that time the patient had profound anemia with a hemoglobin of 6.8 , she was also hypotensive at the time, and responded well to blood transfusion. He had a total of 3 units of packed RBCs given during her last admission. She did undergo a paracentesis at the time, and she had 7.1 L of fluids removed. Her renal functioning didn't improve at the time of her discharge back on September 05/2018. Her liver cirrhosis was basically diagnosed to be related to alcohol. Patient was reevaluated today on 10/11/2018, her mentation seems to be gradually improving. Her ammonia level is coming down nicely, and her kidney functioning is improving, admitted with creatinine of 3.47, presently 2.32. Her hemoglobin is 6.4, hence the patient is to receive a unit of packed RBCs today. Urine output is marginal at 20 mL per hour. Patient seems to be a bit more alert and oriented today compared to yesterday. At least she knew where she was, and she knew the year. All labs were reviewed, INR is 1.7, patient may eventually require paracentesis for ascites. And that is being addressed by gastroenterology on the case. Her BUN today is 78 creatinine is 2.32. And again her hemoglobin is low at 6.4. Objective - Vital Signs Vital signs: Vital Signs Temp 98.6 F 10/11/18 13:36 Pulse 83 10/11/18 13:36 Resp 14 10/11/18 13:36 BP 116/70 10/11/18 13:36 Pulse Ox 97 10/11/18 13:36 Intake & Output 10/10/18 10/11/18 10/11/18 18:59 06:59 18:59 Intake Total 2591.463 2505.494 1531.370 Output Total 265 321 188 Balance 2326.463 2184.494 1343.370 Weight 115.1 kg Intake: IV 720 2000 765 0.9NS Bolus 500 Dextrose 5% in Water 1, 1650 375 000 ml @ 150 mls/hr IV . Q7H40M [facility] with Sodium Bicarb (1 Meq/ml) 150 ml Rx#:[id number] Sodium Chloride 0.9% 1, 220 50 000 ml @ 100 mls/hr IV . Q10H ONE Rx#:[id number] Sodium Chloride 0.9% 1, 300 90 000 ml @ 20 mls/hr IV . Q24H [facility] Rx#:[id number] Sodium Chloride 0.9% 1, 300 000 ml @ 75 mls/hr IV . [id number] [facility] Rx#:[id number] Intake, IV Titration 1871.463 265.494 336.370 Amount Dextrose 5% in Water 1, 1625 150 000 ml @ 150 mls/hr IV . Q7H40M [facility] with Sodium Bicarb (1 Meq/ml) 150 ml Rx#:[id number] Norepinephrine 16 mg In 196.463 115.494 36.370 Sodium Chloride 0.9% 250 ml @ Titrate IV .Q0M [facility] Rx#:[id number] Vancomycin 2,000 mg In 250 Sodium Chloride 0.9% 500 ml 500 ml @ 167 mls/hr IVPB Q36H [facility] Rx#: [id number] cefTRIAXone 1,000 mg In 50 50 Sodium Chloride 0.9% 50 ml @ 100 mls/hr IVPB Q24HR [facility] Rx#:[id number] Oral 210 120 Blood Product 310 Rc As-1 Unit 310 [id number] Other 30 Output: Urine 265 321 188 Other: Voiding Method Indwelling Catheter Indwelling Catheter Indwelling Catheter # Bowel Movements 1 1 - Exam Physical Exam: Revealed a 48-year-old female, obese, in no form of respiratory distress, less confused, more oriented today compared to yesterday. Head: Atraumatic normocephalic. HEENT:[Neck is supple.] [No neck masses.] [No thyromegaly.] [No JVD.] PERRLA, EOMI, no icterus. Dry mucous membranes. Chest: [Clear throughout, no crackles, no rhonchi, no wheezes.] Cardiac Exam: [Normal S1 and S2, no S3 gallop, no murmur.] Abdomen: [Obese, Soft, nontender, no megaly, no rebound, no guarding, normal bowel sounds. Positive ascites.] Extremities: [No clubbing, trace of bipedal edema, no cyanosis.] Neurological Exam: Patient is confused, encephalopathic, disoriented, otherwise no gross focal neurologic deficit. Skin: No rashes. Looks pale. - Labs CBC & Chem 7: 10/11/18 05:13 10/11/18 05:13 Labs: Abnormal Lab Results - Last 24 Hours (Table) 10/10/18 10/10/18 10/11/18 Range/Units 14:12 15:19 05:13 RBC (3.80-5.40) m/uL Hgb (11.4-16.0) gm/dL Hct (34.0-46.0) % RDW (11.5-15.5) % Lymphocytes # (1.0-4.8) k/uL PT (9.0-12.0) sec INR (<1.2) APTT (22.0-30.0) sec Sodium 128 L (137-145) mmol/L Chloride 94 L (98-107) mmol/L BUN 78 H (7-17) mg/dL Creatinine 2.32 H (0.52-1.04) mg/dL Glucose 123 H (74-99) mg/dL POC Glucose (mg/dL) 185 H (75-99) mg/dL Calcium 7.7 L (8.4-10.2) mg/dL Phosphorus 6.8 H (2.5-4.5) mg/dL Magnesium 2.4 H (1.6-2.3) mg/dL Total Bilirubin 2.1 H (0.2-1.3) mg/dL AST 60 H (14-36) U/L Ammonia 60 H (<30) umol/L Total Protein 4.5 L (6.3-8.2) g/dL Albumin 2.0 L (3.5-5.0) g/dL Crossmatch 10/11/18 10/11/18 10/11/18 Range/Units 05:13 05:13 05:13 RBC 2.48 L (3.80-5.40) m/uL Hgb 6.4 L* (11.4-16.0) gm/dL Hct 20.1 L (34.0-46.0) % RDW 17.9 H (11.5-15.5) % Lymphocytes # 0.9 L (1.0-4.8) k/uL PT 16.6 H (9.0-12.0) sec INR 1.7 H (<1.2) APTT 35.7 H (22.0-30.0) sec Sodium (137-145) mmol/L Chloride (98-107) mmol/L BUN (7-17) mg/dL Creatinine (0.52-1.04) mg/dL Glucose (74-99) mg/dL POC Glucose (mg/dL) (75-99) mg/dL Calcium (8.4-10.2) mg/dL Phosphorus (2.5-4.5) mg/dL Magnesium (1.6-2.3) mg/dL Total Bilirubin (0.2-1.3) mg/dL AST (14-36) U/L Ammonia 47 H (<30) umol/L Total Protein (6.3-8.2) g/dL Albumin (3.5-5.0) g/dL Crossmatch 10/11/18 Range/Units 08:20 RBC (3.80-5.40) m/uL Hgb (11.4-16.0) gm/dL Hct (34.0-46.0) % RDW (11.5-15.5) % Lymphocytes # (1.0-4.8) k/uL PT (9.0-12.0) sec INR (<1.2) APTT (22.0-30.0) sec Sodium (137-145) mmol/L Chloride (98-107) mmol/L BUN (7-17) mg/dL Creatinine (0.52-1.04) mg/dL Glucose (74-99) mg/dL POC Glucose (mg/dL) (75-99) mg/dL Calcium (8.4-10.2) mg/dL Phosphorus (2.5-4.5) mg/dL Magnesium (1.6-2.3) mg/dL Total Bilirubin (0.2-1.3) mg/dL AST (14-36) U/L Ammonia (<30) umol/L Total Protein (6.3-8.2) g/dL Albumin (3.5-5.0) g/dL Crossmatch See Detail Microbiology - Last 24 Hours (Table) 10/10/18 04:30 Urine Culture - Final Urine,Catheterized 10/10/18 00:38 Blood Culture - Preliminary Blood No Growth after 24 hours Assessment and Plan Assessment: Impression: 1 altered mental status secondary to metabolic encephalopathy secondary to alcohol liver disease and liver cirrhosis. Mostly hepatic encephalopathy. 2 acute hypotension, requiring significant amount of fluids and pressors, could very well be secondary to hypovolemia and intravascular depletion, however the possibility of sepsis is to be considered felt to be less likely at this point. 3 acute kidney injury secondary to acute tubular necrosis with hypotension. Improving. 4 acute hyperkalemia secondary to acute kidney injury and Aldactone. Resolved. 5 acute urinary tract infection is suspected, possible sepsis, but again my clinical index of suspicion for sepsis is rather low. 6 acute metabolic acidosis secondary to acute kidney injury. 7 acute lactic acidosis, this could very well be related to the underlying liver disease, although the possibility of sepsis again is to be considered. But felt to be less likely. 8 hypotension, differential diagnoses for hypotension could be related to hypovolemia or related to sepsis. I believe it is mostly hypovolemic in nature Recommendation: Considering the improvement in her labs, sodium bicarb was discontinued, she is presently on IV fluid at 75 mL per hour, she is also on oral bicarb, she remains on midodrine, we are tapering her norepinephrine, she is presently at 5 mcg/m. Continue to monitor ammonia level, today it is down to 47. Continue to monitor liver enzymes, renal profile, continue empiric antibiotics, urine culture is negative, hence we'll discontinue vancomycin. Continue Rocephin, mostly because the patient has ascites, and she has alcohol liver disease with hepatic encephalopathy. She is at risk of developing spontaneous bacterial peritonitis. Patient will remain in the ICU today, will follow closely. Time with Patient: Less than 30
[2018-10-11 19:34] LABS: Anisocytosis Slight; HCT 23.7 % (34.0-46.0); HGB 7.6 gm/dL (11.4-16.0); Hypochromasia Slight; MCH 26.5 pg (25.0-35.0); MCHC 31.9 g/dL (31.0-37.0); MCV 83.1 fL (80.0-100.0); Mean Platelet Volume 7.4; Platelet Count 138 k/uL (150-450); RBC 2.85 m/uL (3.80-5.40); RDW 17.5 % (11.5-15.5); WBC 10.5 k/uL (3.8-10.6)
--- NOTE | 2018-10-11 20:25 | P.PN ---
Subjective Progress Note Date: 10/11/18 Patient is more alert today she is answering questions she knows where she is at. She has no specific complaints however is still lethargic. Of note her hemoglobin today was diminished requiring transfusion of packed RBCs she remains in the ICU on full supportive care. Objective - Vital Signs Vital signs: Vital Signs Temp 98.4 F 10/11/18 16:00 Pulse 94 10/11/18 19:00 Resp 19 10/11/18 19:00 BP 114/79 10/11/18 19:00 Pulse Ox 97 10/11/18 19:00 Intake & Output 10/11/18 10/11/18 10/12/18 06:59 18:59 06:59 Intake Total 2505.494 1988.694 1.395 Output Total 321 453 Balance 2184.494 1535.694 1.395 Weight 115.1 kg Intake: IV 2000 1215 Dextrose 5% in Water 1, 1650 375 000 ml @ 150 mls/hr IV . Q7H40M [facility] with Sodium Bicarb (1 Meq/ml) 150 ml Rx#:[id number] Sodium Chloride 0.9% 1, 50 000 ml @ 100 mls/hr IV . Q10H [facility] Rx#:[id number] Sodium Chloride 0.9% 1, 300 90 000 ml @ 20 mls/hr IV . Q24H [facility] Rx#:[id number] Sodium Chloride 0.9% 1, 750 000 ml @ 75 mls/hr IV . [id number] [facility] Rx#:[id number] Intake, IV Titration 265.494 343.694 1.395 Amount Dextrose 5% in Water 1, 150 000 ml @ 150 mls/hr IV . Q7H40M [facility] with Sodium Bicarb (1 Meq/ml) 150 ml Rx#:[id number] Norepinephrine 16 mg In 115.494 43.694 1.395 Sodium Chloride 0.9% 250 ml @ Titrate IV .Q0M [facility] Rx#:[id number] Vancomycin 2,000 mg In 250 Sodium Chloride 0.9% 500 ml 500 ml @ 167 mls/hr IVPB Q36H [facility] Rx#: [id number] cefTRIAXone 1,000 mg In 50 Sodium Chloride 0.9% 50 ml @ 100 mls/hr IVPB Q24HR [facility] Rx#:[id number] Oral 210 120 Blood Product 310 Rc As-1 Unit 310 [id number] Other 30 Output: Urine 321 453 Other: Voiding Method Indwelling Catheter Indwelling Catheter # Bowel Movements 1 1 - Labs CBC & Chem 7: 10/11/18 19:10 10/11/18 05:13 Labs: Abnormal Lab Results - Last 24 Hours (Table) 10/11/18 10/11/18 10/11/18 Range/Units 05:13 05:13 05:13 RBC 2.48 L (3.80-5.40) m/uL Hgb 6.4 L* (11.4-16.0) gm/dL Hct 20.1 L (34.0-46.0) % RDW 17.9 H (11.5-15.5) % Plt Count (150-450) k/uL Lymphocytes # 0.9 L (1.0-4.8) k/uL PT 16.6 H (9.0-12.0) sec INR 1.7 H (<1.2) APTT 35.7 H (22.0-30.0) sec Sodium 128 L (137-145) mmol/L Chloride 94 L (98-107) mmol/L BUN 78 H (7-17) mg/dL Creatinine 2.32 H (0.52-1.04) mg/dL Glucose 123 H (74-99) mg/dL Calcium 7.7 L (8.4-10.2) mg/dL Phosphorus 6.8 H (2.5-4.5) mg/dL Magnesium 2.4 H (1.6-2.3) mg/dL Total Bilirubin 2.1 H (0.2-1.3) mg/dL AST 60 H (14-36) U/L Ammonia (<30) umol/L Total Protein 4.5 L (6.3-8.2) g/dL Albumin 2.0 L (3.5-5.0) g/dL Crossmatch 10/11/18 10/11/18 10/11/18 Range/Units 05:13 08:20 19:10 RBC 2.85 L (3.80-5.40) m/uL Hgb 7.6 L (11.4-16.0) gm/dL Hct 23.7 L (34.0-46.0) % RDW 17.5 H (11.5-15.5) % Plt Count 138 L (150-450) k/uL Lymphocytes # (1.0-4.8) k/uL PT (9.0-12.0) sec INR (<1.2) APTT (22.0-30.0) sec Sodium (137-145) mmol/L Chloride (98-107) mmol/L BUN (7-17) mg/dL Creatinine (0.52-1.04) mg/dL Glucose (74-99) mg/dL Calcium (8.4-10.2) mg/dL Phosphorus (2.5-4.5) mg/dL Magnesium (1.6-2.3) mg/dL Total Bilirubin (0.2-1.3) mg/dL AST (14-36) U/L Ammonia 47 H (<30) umol/L Total Protein (6.3-8.2) g/dL Albumin (3.5-5.0) g/dL Crossmatch See Detail Microbiology - Last 24 Hours (Table) 10/10/18 04:30 Urine Culture - Final Urine,Catheterized 10/10/18 00:38 Blood Culture - Preliminary Blood No Growth after 24 hours Assessment and Plan Assessment: Acute sepsis requiring pressors Hyperkalemia Altered mental status Urinary tract infection Chronic liver disease cirrhosis Metabolic encephalopathy acute Anemia multifactorial Acute kidney injury. Hypovolemia with hypovolemic shock Plan: Plan admit patient to intensive care for intensive care support patient is relatively new to my practice will have only seen one time in the office. We' ll continue to monitor patient corrector profound hypotension infectious disease and intensive care consultation and progress Time with Patient: Greater than 30
[2018-10-12 06:12] LABS: Anisocytosis Slight; Basophils % (A) 0 %; Eosinophils # (A) 0.2 k/uL (0-0.7); Eosinophils % (A) 3 %; HCT 22.4 % (34.0-46.0); HGB 7.2 gm/dL (11.4-16.0); Lymphocytes % (A) 12 %; MCH 26.3 pg (25.0-35.0); MCHC 32.2 g/dL (31.0-37.0); MCV 81.9 fL (80.0-100.0); Mean Platelet Volume 6.7; Monocytes # (A) 0.5 k/uL (0-1.0); Monocytes % (A) 6 %; Neutrophils # (A) 5.9 k/uL (1.3-7.7); Neutrophils % (A) 76 %; Platelet Count 121 k/uL (150-450); RBC 2.74 m/uL (3.80-5.40); RDW 17.2 % (11.5-15.5); WBC 7.8 k/uL (3.8-10.6)
[2018-10-12 06:24] LABS: INR 1.5 (<1.2); Partial Thromboplastin Time 37.9 sec (22.0-30.0); Prothrombin Time 14.8 sec (9.0-12.0)
[2018-10-12 06:25] LABS: Albumin 1.9 g/dL (3.5-5.0); Calcium 7.5 mg/dL (8.4-10.2); Potassium 3.6 mmol/L (3.5-5.1); Total Bilirubin 2.6 mg/dL (0.2-1.3); Total Protein 4.4 g/dL (6.3-8.2)
[2018-10-12] MEDS: LEVOTHYROXINE 25 MCG TAB PO SCH (06:29)
--- NOTE | 2018-10-12 08:09 | P.PN ---
Subjective Patient is seen in follow for acute kidney injury. Creatinine was 3.47 on admission and is down to 1.81 today. Currently maintained on normal saline at 75 mL an hour. Sodium level is down to 124. NG tube was taken out yesterday. Oral intake is still quite poor. She has been drinking quite a bit of water. Hemoglobin was 6.4 yesterday for which she received a unit of blood. 7.2 today. Vital signs are stable. General: The patient appeared well nourished and normally developed. HEENT: Head exam is unremarkable. Neck is without jugular venous distension. NG tube noted. LUNGS: Lungs are clear to auscultation and percussion. Breath sounds decreased. HEART: Rate and Rhythm are regular. First and second heart sounds normal. No murmurs, rubs or gallops. ABDOMEN: Abdominal exam reveals normal bowel sounds. Nontender. EXTREMITITES: No clubbing, cyanosis, or edema. Objective - Vital Signs Vital signs: Vital Signs Temp 98.4 F 10/11/18 20:00 Pulse 80 10/11/18 22:00 Resp 16 10/11/18 22:00 BP 114/67 10/11/18 22:00 Pulse Ox 97 10/11/18 21:00 Intake & Output 10/11/18 10/12/18 10/12/18 18:59 06:59 18:59 Intake Total 1988.694 1.395 Output Total 453 Balance 1535.694 1.395 Weight 115.1 kg Intake: IV 1215 Dextrose 5% in Water 1, 375 000 ml @ 150 mls/hr IV . Q7H40M [facility] with Sodium Bicarb (1 Meq/ml) 150 ml Rx#:[id number] Sodium Chloride 0.9% 1, 90 000 ml @ 20 mls/hr IV . Q24H [facility] Rx#:[id number] Sodium Chloride 0.9% 1, 750 000 ml @ 75 mls/hr IV . [id number] [facility] Rx#:[id number] Intake, IV Titration 343.694 1.395 Amount Norepinephrine 16 mg In 43.694 1.395 Sodium Chloride 0.9% 250 ml @ Titrate IV .Q0M [facility] Rx#:[id number] Vancomycin 2,000 mg In 250 Sodium Chloride 0.9% 500 ml 500 ml @ 167 mls/hr IVPB Q36H [facility] Rx#: [id number] cefTRIAXone 1,000 mg In 50 Sodium Chloride 0.9% 50 ml @ 100 mls/hr IVPB Q24HR [facility] Rx#:[id number] Oral 120 Blood Product 310 Rc As-1 Unit 310 [id number] Output: Urine 453 Other: Voiding Method Indwelling Catheter Indwelling Catheter # Bowel Movements 1 - Labs CBC & Chem 7: 10/12/18 05:50 10/12/18 05:50 Labs: Abnormal Lab Results - Last 24 Hours (Table) 10/11/18 10/11/18 10/12/18 Range/Units 08:20 19:10 05:50 RBC 2.85 L 2.74 L (3.80-5.40) m/uL Hgb 7.6 L 7.2 L (11.4-16.0) gm/dL Hct 23.7 L 22.4 L (34.0-46.0) % RDW 17.5 H 17.2 H (11.5-15.5) % Plt Count 138 L 121 L (150-450) k/uL PT (9.0-12.0) sec INR (<1.2) APTT (22.0-30.0) sec Sodium (137-145) mmol/L Chloride (98-107) mmol/L BUN (7-17) mg/dL Creatinine (0.52-1.04) mg/dL Calcium (8.4-10.2) mg/dL Total Bilirubin (0.2-1.3) mg/dL AST (14-36) U/L Alkaline Phosphatase (38-126) U/L Total Protein (6.3-8.2) g/dL Albumin (3.5-5.0) g/dL Crossmatch See Detail 10/12/18 10/12/18 Range/Units 05:50 05:50 RBC (3.80-5.40) m/uL Hgb (11.4-16.0) gm/dL Hct (34.0-46.0) % RDW (11.5-15.5) % Plt Count (150-450) k/uL PT 14.8 H (9.0-12.0) sec INR 1.5 H (<1.2) APTT 37.9 H (22.0-30.0) sec Sodium 124 L (137-145) mmol/L Chloride 92 L (98-107) mmol/L BUN 66 H (7-17) mg/dL Creatinine 1.81 H (0.52-1.04) mg/dL Calcium 7.5 L (8.4-10.2) mg/dL Total Bilirubin 2.6 H (0.2-1.3) mg/dL AST 69 H (14-36) U/L Alkaline Phosphatase 151 H (38-126) U/L Total Protein 4.4 L (6.3-8.2) g/dL Albumin 1.9 L (3.5-5.0) g/dL Crossmatch Microbiology - Last 24 Hours (Table) 10/10/18 00:38 Blood Culture - Preliminary Blood No Growth after 48 hours 10/10/18 04:30 Urine Culture - Final Urine,Catheterized Assessment and Plan Plan: Assessment: 1. Acute kidney injury secondary to ATN secondary to hypotension/sepsis. Creatinine was 3.47 on admission and is 1.81 today. Baseline creatinine is near 1. 2. Hyponatremia due to poor solute intake and also hypervolemic. Ascites noted on abdominal ultrasound. 3. Hyperkalemia secondary to acute kidney injury, metabolic acidosis and Aldactone. Improved with medical management. 4. Liver cirrhosis. 5. Altered mental status. Etiology is hepatic encephalopathy as well as UTI. 6. Metabolic acidosis secondary to acute kidney injury and lactic acidosis. Better. 7. Hypotension secondary to sepsis. Currently on 1 zoë of Levophed. Cortisol level normal. 8. Hyperphosphatemia secondary to acute kidney injury. Maintained on PhosLo. 9. Acute blood loss anemia status post blood transfusion and IV DDAVP on October 11. 10. Ascites scheduled for paracentesis today. Plan: Maintain normal saline at 75 mL an hour. Maintain oral bicarbonate to 1300 mg twice daily. Maintain midodrine. Wean vasopressors. Follow-up cultures. Avoid nephrotoxins. Continue to monitor renal function and urine output. I will give her 25 g of albumin prior to paracentesis and an additional 25 g if more than 4 L removed. 1200 mL fluid restriction. Add ensure with meals.
[2018-10-12] MEDS ORDERED: POTASSIUM CHLORIDE ER 20 MEQ TAB.ER PO SCH (09:00)
[2018-10-12] MEDS: FERROUS SULFATE 325 MG TAB PO SCH ×2 (10:02→22:04)
[2018-10-12] MEDS: CALCIUM ACETATE 667 MG CAP PO SCH ×3 (10:02→17:25)
[2018-10-12] MEDS: GABAPENTIN 100 MG CAP PO SCH ×3 (10:02→22:04)
[2018-10-12] MEDS: LACTULOSE 20 GM/30 ML CUP PO SCH ×3 (10:02→22:04)
[2018-10-12] MEDS: PANTOPRAZOLE 40 MG TABLET PO SCH (10:02)
[2018-10-12] MEDS: SODIUM BICARBONATE TAB 650 MG TAB PO SCH ×2 (10:04→22:03)
--- NOTE | 2018-10-12 10:35 | P.PN ---
Subjective Progress Note Date: 10/12/18 Principal diagnosis: Alcohol liver cirrhosis acute kidney injury hypotension No complaints. No active bleeding. He will and 7.2. White count 7.8. Platelet 121. INR 1.5. Kidney function improving BUN 66. Creatinine 1.8. Total bilirubin 2.6. AST 69. ALT 50. AP 151. Ammonia 18. Objective - Vital Signs Vital signs: Vital Signs Temp 98.4 F 10/11/18 20:00 Pulse 80 10/11/18 22:00 Resp 16 10/11/18 22:00 BP 114/67 10/11/18 22:00 Pulse Ox 97 10/11/18 21:00 Intake & Output 10/11/18 10/12/18 10/12/18 18:59 06:59 18:59 Intake Total 1988.694 1.395 Output Total 453 Balance 1535.694 1.395 Weight 115.1 kg Intake: IV 1215 Dextrose 5% in Water 1, 375 000 ml @ 150 mls/hr IV . Q7H40M [facility] with Sodium Bicarb (1 Meq/ml) 150 ml Rx#:[id number] Sodium Chloride 0.9% 1, 90 000 ml @ 20 mls/hr IV . Q24H [facility] Rx#:[id number] Sodium Chloride 0.9% 1, 750 000 ml @ 75 mls/hr IV . [id number] [facility] Rx#:[id number] Intake, IV Titration 343.694 1.395 Amount Norepinephrine 16 mg In 43.694 1.395 Sodium Chloride 0.9% 250 ml @ Titrate IV .Q0M [facility] Rx#:[id number] Vancomycin 2,000 mg In 250 Sodium Chloride 0.9% 500 ml 500 ml @ 167 mls/hr IVPB Q36H [facility] Rx#: [id number] cefTRIAXone 1,000 mg In 50 Sodium Chloride 0.9% 50 ml @ 100 mls/hr IVPB Q24HR [facility] Rx#:[id number] Oral 120 Blood Product 310 Rc As-1 Unit 310 [id number] Output: Urine 453 Other: Voiding Method Indwelling Catheter Indwelling Catheter # Bowel Movements 1 - Exam General appearance: The patient is alert, oriented, in no acute distress. HET: Head is normocephalic and atraumatic. Pupils are equal and reactive. Oropharynx is clear without lesions. Neck: Supple without lymphadenopathy. Trachea midline. Heart: S1 S2. Regular rate and rhythm. Lungs: No crackles or wheezes are heard. Abdomen: Soft, moderate ascites with bowel sounds. No peritoneal signs. No palpable organomegaly or masses. Extremities: Normal skin color and turgor. No cyanosis, rash, ulceration, clubbing, or edema. Radial and pedal pulses are 2/4 bilaterally. Neurological: No focal deficits. Strength and sensation are grossly intact. - Labs CBC & Chem 7: 10/12/18 05:50 10/12/18 05:50 Labs: Abnormal Lab Results - Last 24 Hours (Table) 10/11/18 10/11/18 10/12/18 Range/Units 08:20 19:10 05:50 RBC 2.85 L 2.74 L (3.80-5.40) m/uL Hgb 7.6 L 7.2 L (11.4-16.0) gm/dL Hct 23.7 L 22.4 L (34.0-46.0) % RDW 17.5 H 17.2 H (11.5-15.5) % Plt Count 138 L 121 L (150-450) k/uL PT (9.0-12.0) sec INR (<1.2) APTT (22.0-30.0) sec Sodium (137-145) mmol/L Chloride (98-107) mmol/L BUN (7-17) mg/dL Creatinine (0.52-1.04) mg/dL Calcium (8.4-10.2) mg/dL Total Bilirubin (0.2-1.3) mg/dL AST (14-36) U/L Alkaline Phosphatase (38-126) U/L Total Protein (6.3-8.2) g/dL Albumin (3.5-5.0) g/dL Crossmatch See Detail 10/12/18 10/12/18 Range/Units 05:50 05:50 RBC (3.80-5.40) m/uL Hgb (11.4-16.0) gm/dL Hct (34.0-46.0) % RDW (11.5-15.5) % Plt Count (150-450) k/uL PT 14.8 H (9.0-12.0) sec INR 1.5 H (<1.2) APTT 37.9 H (22.0-30.0) sec Sodium 124 L (137-145) mmol/L Chloride 92 L (98-107) mmol/L BUN 66 H (7-17) mg/dL Creatinine 1.81 H (0.52-1.04) mg/dL Calcium 7.5 L (8.4-10.2) mg/dL Total Bilirubin 2.6 H (0.2-1.3) mg/dL AST 69 H (14-36) U/L Alkaline Phosphatase 151 H (38-126) U/L Total Protein 4.4 L (6.3-8.2) g/dL Albumin 1.9 L (3.5-5.0) g/dL Crossmatch Microbiology - Last 24 Hours (Table) 10/10/18 00:38 Blood Culture - Preliminary Blood No Growth after 48 hours 10/10/18 04:30 Urine Culture - Final Urine,Catheterized Assessment and Plan (1) Altered mental status Narrative/Plan: 48-year-old female with a history of alcohol liver disease cirrhosis portal hypertension chronic ascites hepatic encephalopathy presents with acute mental status changes hyponatremia acute kidney injury with underlying anemia without active GI bleeding. EGD colonoscopy one month ago; normal colonoscopy gastritis gastric remnant small nonbleeding distal esophageal varices banded, small bowel AVM status post APC. Current Visit: Yes Status: Acute Code(s): R41.82 - ALTERED MENTAL STATUS, UNSPECIFIED SNOMED Code(s): 644603510 (2) Hepatic encephalopathy Current Visit: Yes Status: Acute Code(s): K72.90 - HEPATIC FAILURE, UNSPECIFIED WITHOUT COMA SNOMED Code(s): 69890724 (3) Acute kidney injury Current Visit: No Status: Acute Code(s): N17.9 - ACUTE KIDNEY FAILURE, UNSPECIFIED SNOMED Code(s): 28700024 (4) Anemia Current Visit: No Status: Acute Code(s): D64.9 - ANEMIA, UNSPECIFIED SNOMED Code(s): 734245077 (5) Ascites Current Visit: No Status: Acute Code(s): R18.8 - OTHER ASCITES SNOMED Code (s): 803436501 (6) Cirrhosis Current Visit: No Status: Acute Code(s): K74.60 - UNSPECIFIED CIRRHOSIS OF LIVER SNOMED Code(s): 90524187 (7) Coagulopathy Current Visit: No Status: Acute Code(s): D68.9 - COAGULATION DEFECT, UNSPECIFIED SNOMED Code(s): 65587631 (8) Hypotension Current Visit: Yes Status: Acute Code(s): I95.9 - HYPOTENSION, UNSPECIFIED SNOMED Code(s): 53716686 (9) Hyponatremia Current Visit: Yes Status: Acute Code(s): E87.1 - HYPO-OSMOLALITY AND HYPONATREMIA SNOMED Code(s): 96755365 Plan: 1. Paracentesis with cultures today. Daily CBC CMP ammonia. PT/INR in a.m. Low-salt diet. Assessment and plan a care discussed with Dr. Carmona
[2018-10-12] MEDS: MIDODRINE 5 MG TAB PO SCH ×3 (11:32→17:26)
--- NOTE | 2018-10-12 13:47 | P.PN ---
Subjective Progress Note Date: 10/12/18 Principal diagnosis: Acute metabolic encephalopathy secondary to alcohol liver disease and liver cirrhosis/hepatic encephalopathy and acute kidney injury. This is a 48-year-old female with known history of liver cirrhosis, poor historian, confused, patient was brought into the ER yesterday, and the chief complaint was mostly change in mental status, fatigue, and known history of liver cirrhosis. The patient herself could not volunteer any information because she seems to be quite confused and encephalopathic. Patient was also noted to be hypotensive, did not respond to fluids after 2 L, hence the patient was placed on norepinephrine , presently at 17 mcg/m. On admission, the patient was found to have significant abnormal labs including elevated potassium of 7.1, she had poor urine output, and she was quite acidotic, bicarb level was 11. In the ER the patient received a total of 4 L of 0.9 normal saline. And she was placed on a bicarb drip running at 150 mL per hour at this point. Patient was admitted to the ICU, required norepinephrine, she was seen by diamond sizer and grader morning, and The patient on bicarb drip at relatively higher dose. Looking at the patient's past medical history, she is known to have history of liver disease, history of chronic ascites, GI bleeding/anemia, previous bariatric surgery, history of paracentesis and history of esophageal varices banding. Patient was in the hospital as off second half of August of 2018, and at that time the patient had profound anemia with a hemoglobin of 6.8 , she was also hypotensive at the time, and responded well to blood transfusion. He had a total of 3 units of packed RBCs given during her last admission. She did undergo a paracentesis at the time, and she had 7.1 L of fluids removed. Her renal functioning didn't improve at the time of her discharge back on September 05/2018. Her liver cirrhosis was basically diagnosed to be related to alcohol. Patient was reevaluated today on 10/11/2018, her mentation seems to be gradually improving. Her ammonia level is coming down nicely, and her kidney functioning is improving, admitted with creatinine of 3.47, presently 2.32. Her hemoglobin is 6.4, hence the patient is to receive a unit of packed RBCs today. Urine output is marginal at 20 mL per hour. Patient seems to be a bit more alert and oriented today compared to yesterday. At least she knew where she was, and she knew the year. All labs were reviewed, INR is 1.7, patient may eventually require paracentesis for ascites. And that is being addressed by gastroenterology on the case. Her BUN today is 78 creatinine is 2.32. And again her hemoglobin is low at 6.4. Patient was reevaluated today in the ICU on 10/12/2018. Patient is showing slow but steady improvement over the last 2 days. Her ammonia level keeps coming down nicely, all her labs are improving including her kidney profile, patient may undergo paracentesis today by interventional radiology. Her creatinine today is 1.81, it was 3.47 on admission. Remains on IV fluid at 75 mL per hour , sodium level is 124. Patient is encouraged to have more oral intake. But it is relatively poor. Hemoglobin was 6.4 yesterday, and she received a unit of packed RBCs. Labs today showed hemoglobin of 7.2 INR of 1.5, sodium is down to 124 BUN is 66 creatinine is 1.81. Mentation seems to be clearing steadily. Ammonia level is down to 18 from 47 yesterday. Patient denies any shortness of breath, no cough no wheezing, no fever no chills, she denies abdominal pain but she does have increased abdominal girth and ascites Objective - Vital Signs Vital signs: Vital Signs Temp 97.9 F 10/12/18 04:00 Pulse 78 10/12/18 08:00 Resp 16 10/12/18 08:00 BP 101/54 10/12/18 08:00 Pulse Ox 97 10/12/18 07:00 Intake & Output 10/11/18 10/12/18 10/12/18 18:59 06:59 18:59 Intake Total 4547.794 7501.395 585.044 Output Total 453 515 50 Balance 7788.035 1041.395 535.044 Weight 115.1 kg Intake: IV 1215 825 75 Dextrose 5% in Water 1, 375 000 ml @ 150 mls/hr IV . Q7H40M [facility] with Sodium Bicarb (1 Meq/ml) 150 ml Rx#:[id number] Sodium Chloride 0.9% 1, 90 000 ml @ 20 mls/hr IV . Q24H [facility] Rx#:[id number] Sodium Chloride 0.9% 1, 750 825 75 000 ml @ 75 mls/hr IV . [id number] [facility] Rx#:[id number] Intake, IV Titration 343.694 1.395 10.044 Amount Norepinephrine 16 mg In 43.694 1.395 10.044 Sodium Chloride 0.9% 250 ml @ Titrate IV .Q0M [facility] Rx#:[id number] Vancomycin 2,000 mg In 250 Sodium Chloride 0.9% 500 ml 500 ml @ 167 mls/hr IVPB Q36H [facility] Rx#: [id number] cefTRIAXone 1,000 mg In 50 Sodium Chloride 0.9% 50 ml @ 100 mls/hr IVPB Q24HR [facility] Rx#:[id number] Oral 120 1000 500 Blood Product 310 Rc As-1 Unit 310 [id number] Output: Urine 453 515 50 Other: Voiding Method Indwelling Catheter Indwelling Catheter # Bowel Movements 1 - Exam Physical Exam: Revealed a 48-year-old female, obese, in no form of respiratory distress, more alert and oriented today.. Head: Atraumatic normocephalic. HEENT:[Neck is supple.] [No neck masses.] [No thyromegaly.] [No JVD.] PERRLA, EOMI, no icterus. Dry mucous membranes. Chest: [Clear throughout, no crackles, no rhonchi, no wheezes.] Cardiac Exam: [Normal S1 and S2, no S3 gallop, no murmur.] Abdomen: [Obese, Soft, nontender, no megaly, no rebound, no guarding, normal bowel sounds. Positive ascites.] Extremities: [No clubbing, trace of bipedal edema, no cyanosis.] Neurological Exam: Patient is less confused and less encephalopathic, otherwise no gross focal deficit. Skin: No rashes. Looks pale. - Labs CBC & Chem 7: 10/12/18 05:50 10/12/18 05:50 Labs: Abnormal Lab Results - Last 24 Hours (Table) 10/11/18 10/12/18 10/12/18 Range/Units 19:10 05:50 05:50 RBC 2.85 L 2.74 L (3.80-5.40) m/uL Hgb 7.6 L 7.2 L (11.4-16.0) gm/dL Hct 23.7 L 22.4 L (34.0-46.0) % RDW 17.5 H 17.2 H (11.5-15.5) % Plt Count 138 L 121 L (150-450) k/uL PT 14.8 H (9.0-12.0) sec INR 1.5 H (<1.2) APTT 37.9 H (22.0-30.0) sec Sodium (137-145) mmol/L Chloride (98-107) mmol/L BUN (7-17) mg/dL Creatinine (0.52-1.04) mg/dL Calcium (8.4-10.2) mg/dL Phosphorus (2.5-4.5) mg/dL Total Bilirubin (0.2-1.3) mg/dL AST (14-36) U/L Alkaline Phosphatase (38-126) U/L Total Protein (6.3-8.2) g/dL Albumin (3.5-5.0) g/dL 10/12/18 10/12/18 Range/Units 05:50 05:50 RBC (3.80-5.40) m/uL Hgb (11.4-16.0) gm/dL Hct (34.0-46.0) % RDW (11.5-15.5) % Plt Count (150-450) k/uL PT (9.0-12.0) sec INR (<1.2) APTT (22.0-30.0) sec Sodium 124 L (137-145) mmol/L Chloride 92 L (98-107) mmol/L BUN 66 H (7-17) mg/dL Creatinine 1.81 H (0.52-1.04) mg/dL Calcium 7.5 L (8.4-10.2) mg/dL Phosphorus 5.7 H (2.5-4.5) mg/dL Total Bilirubin 2.6 H (0.2-1.3) mg/dL AST 69 H (14-36) U/L Alkaline Phosphatase 151 H (38-126) U/L Total Protein 4.4 L (6.3-8.2) g/dL Albumin 1.9 L (3.5-5.0) g/dL Microbiology - Last 24 Hours (Table) 10/10/18 00:38 Blood Culture - Preliminary Blood No Growth after 48 hours 10/10/18 04:30 Urine Culture - Final Urine,Catheterized Assessment and Plan Assessment: Impression: 1 altered mental status secondary to metabolic encephalopathy secondary to alcohol liver disease and liver cirrhosis. Mostly hepatic encephalopathy. 2 acute hypotension, requiring significant amount of fluids and pressors, could very well be secondary to hypovolemia and intravascular depletion, however the possibility of sepsis is to be considered felt to be less likely at this point. 3 acute kidney injury secondary to acute tubular necrosis with hypotension. Improving. 4 acute hyperkalemia secondary to acute kidney injury and Aldactone. Resolved. 5 acute urinary tract infection is suspected, possible sepsis, but again my clinical index of suspicion for sepsis is rather low. 6 acute metabolic acidosis secondary to acute kidney injury. 7 acute lactic acidosis, this could very well be related to the underlying liver disease, although the possibility of sepsis again is to be considered. But felt to be less likely. 8 hypotension, differential diagnoses for hypotension could be related to hypovolemia or related to sepsis. I believe it is mostly hypovolemic in nature Recommendation: Continue present supportive care measures, continue fluids, continue lactulose and adjust the dose according the ammonia level, patient will need paracentesis by interventional radiology today, we'll continue to monitor her labs on a daily basis, overall prognosis remains guarded considering her multiple comorbidities as noted above. Patient will be transferred likely today to a medical surgical floor, will follow on when necessary basis once the patient is on the floor. Patient is not quite ready for any discharge planning at this point. Remains quite ill, and many complex issues are being addressed as noted above. Patient is still being followed by many consultants. Time with Patient: Less than 30
[2018-10-12] MEDS: ALBUMIN HUMAN 25% 50 ML in EMPTY BAG 1 BAG IVPB SCH ×2 (14:23→15:53)
[2018-10-12] MEDS: SODIUM CHLORIDE 0.9% 1,000 ML IV SCH (18:01)
--- NOTE | 2018-10-12 18:22 | US ---
EXAMINATION TYPE: US paracentesis abd w/image DATE OF EXAM: 10/12/2018 COMPARISON: NONE HISTORY: Ascites. PROCEDURE: Maximal barrier technique was utilized. The skin overlying a suitable pocket of fluid was localized with ultrasound and the overlying skin was prepped and draped. Ultrasound was utilized with sterile technique. Lidocaine was used for local anesthesia and a skin angelo made with a scalpel. Catheter was advanced under direct ultrasound guidance into a suitable pocket of fluid and approximately 10 liters of serous fluid were removed. Catheter was withdrawn and hemostasis achieved. There is no immediat e complication; the patient is discharged in stable condition. IMPRESSION: STATUS POST ULTRASOUND GUIDED PARACENTESIS FOR PALLIATION OF ASCITES. THIS PROCEDURE WA S PERFORMED BY THE UNDERSIGNED.
[2018-10-12 20:08] LABS: Appearance,BF Cloudy
[2018-10-12 20:09] LABS: Nucleated Cells, Body Fluid 150 /uL; RBC, Body Fluid 1450 /uL
[2018-10-12 20:10] LABS: Mononuclear WBC,Body Fluid 69 %; Polynuclear WBC,Body Fluid 31 %; Total Cells Counted,Body Fluid 100
--- NOTE | 2018-10-12 23:49 | P.PN ---
Subjective Progress Note Date: 10/12/18 Patient is more alert today. She has no specific complaints however is still lethargic. Currently her kidneys had not shown much improvement she will be set up for therapeutic paracentesis. she remains in the ICU on full supportive care. Objective - Vital Signs Vital signs: Vital Signs Temp 98.4 F 10/12/18 20:00 Pulse 80 10/12/18 23:00 Resp 14 10/12/18 23:00 BP 98/47 10/12/18 23:00 Pulse Ox 93 L 10/12/18 22:00 Intake & Output 10/12/18 10/12/18 10/13/18 06:59 18:59 06:59 Intake Total 6854.793 0275.044 675 Output Total 515 20448 580 Balance 1311.395 -8246.956 95 Weight 115.1 kg Intake: IV 825 900 375 Sodium Chloride 0.9% 1, 825 900 375 000 ml @ 75 mls/hr IV . [id number] [facility] Rx#:[id number] Intake, IV Titration 1.395 160.044 Amount Albumin Human 25% 50 ml 100 In Empty Bag 1 bag @ 200 mls/hr IVPB Q15M [facility] Rx#: [id number] Norepinephrine 16 mg In 1.395 10.044 Sodium Chloride 0.9% 250 ml @ Titrate IV .Q0M [facility] Rx#:[id number] cefTRIAXone 1,000 mg In 50 Sodium Chloride 0.9% 50 ml @ 100 mls/hr IVPB Q24HR [facility] Rx#:[id number] Oral 1000 1903 300 Output: Urine 515 660 280 Stool 550 300 Other [id number] Other: Voiding Method Indwelling Catheter Indwelling Catheter Indwelling Catheter - Exam Vital signs are stable. General: The patient appeared well nourished and normally developed. HEENT: Head exam is unremarkable. Neck is without jugular venous distension. NG tube noted. LUNGS: Lungs are clear to auscultation and percussion. Breath sounds decreased. HEART: Rate and Rhythm are regular. First and second heart sounds normal. No murmurs, rubs or gallops. ABDOMEN: Abdominal exam reveals normal bowel sounds. Abdominal distention is noted with evidence of ascites Nontender. EXTREMITITES: No clubbing, cyanosis, +2 edema. - Labs CBC & Chem 7: 10/12/18 05:50 10/12/18 05:50 Labs: Abnormal Lab Results - Last 24 Hours (Table) 10/12/18 10/12/18 10/12/18 Range/Units 05:50 05:50 05:50 RBC 2.74 L (3.80-5.40) m/uL Hgb 7.2 L (11.4-16.0) gm/dL Hct 22.4 L (34.0-46.0) % RDW 17.2 H (11.5-15.5) % Plt Count 121 L (150-450) k/uL PT 14.8 H (9.0-12.0) sec INR 1.5 H (<1.2) APTT 37.9 H (22.0-30.0) sec Sodium 124 L (137-145) mmol/L Chloride 92 L (98-107) mmol/L BUN 66 H (7-17) mg/dL Creatinine 1.81 H (0.52-1.04) mg/dL Calcium 7.5 L (8.4-10.2) mg/dL Phosphorus (2.5-4.5) mg/dL Total Bilirubin 2.6 H (0.2-1.3) mg/dL AST 69 H (14-36) U/L Alkaline Phosphatase 151 H (38-126) U/L Total Protein 4.4 L (6.3-8.2) g/dL Albumin 1.9 L (3.5-5.0) g/dL 10/12/18 Range/Units 05:50 RBC (3.80-5.40) m/uL Hgb (11.4-16.0) gm/dL Hct (34.0-46.0) % RDW (11.5-15.5) % Plt Count (150-450) k/uL PT (9.0-12.0) sec INR (<1.2) APTT (22.0-30.0) sec Sodium (137-145) mmol/L Chloride (98-107) mmol/L BUN (7-17) mg/dL Creatinine (0.52-1.04) mg/dL Calcium (8.4-10.2) mg/dL Phosphorus 5.7 H (2.5-4.5) mg/dL Total Bilirubin (0.2-1.3) mg/dL AST (14-36) U/L Alkaline Phosphatase (38-126) U/L Total Protein (6.3-8.2) g/dL Albumin (3.5-5.0) g/dL Microbiology - Last 24 Hours (Table) 10/12/18 16:35 Body Fluid Culture - Preliminary Ascites Fluid 10/10/18 00:38 Blood Culture - Preliminary Blood No Growth after 48 hours Assessment and Plan Assessment: Acute sepsis requiring pressors Hyperkalemia Altered mental status Urinary tract infection Chronic liver disease cirrhosis Metabolic encephalopathy acute Anemia multifactorial Acute kidney injury. Hypovolemia with hypovolemic shock Plan: Plan continued intensive care for intensive care support patient is slowly improving however his condition is very guarded because of multiple comorbidities patient may get a therapeutic paracentesis today of note Dr. Salcedo 's group is covering [facility] hospitalists. We'll continue to monitor patient corrector profound hypotension infectious disease and intensive care consultation and progress
[2018-10-13] MEDS: SODIUM CHLORIDE 0.9% 1,000 ML IV SCH (01:06)
--- NOTE | 2018-10-13 06:23 | XR ---
EXAMINATION TYPE: XR chest 1V portable DATE OF EXAM: 10/13/2018 HISTORY: SOB. REFERENCE: Previous study dated 10/10/2018. FINDINGS: The patient's NG tube is been removed. The heart is normal in size. The lungs are clear. I could not exclude a tiny left effusion. IMPRESSION: I CANNOT EXCLUDE A TINY LEFT-SIDED EFFUSION.
[2018-10-13 06:33] LABS: INR 1.6 (<1.2); Prothrombin Time 15.6 sec (9.0-12.0)
[2018-10-13 06:41] LABS: Albumin 1.9 g/dL (3.5-5.0); Calcium 7.3 mg/dL (8.4-10.2); Magnesium 2.2 mg/dL (1.6-2.3); Phosphorus 4.1 mg/dL (2.5-4.5); Potassium 3.2 mmol/L (3.5-5.1); Total Bilirubin 1.9 mg/dL (0.2-1.3); Total Protein 4.3 g/dL (6.3-8.2)
[2018-10-13 06:49] LABS: Anisocytosis Slight; Basophils % (A) 0 %; Eosinophils # (A) 0.1 k/uL (0-0.7); Eosinophils % (A) 3 %; Hypochromasia Slight; Lymphocytes # (A) 0.8 k/uL (1.0-4.8); Lymphocytes % (A) 15 %; MCH 27.2 pg (25.0-35.0); MCHC 32.8 g/dL (31.0-37.0); MCV 82.7 fL (80.0-100.0); Monocytes # (A) 0.5 k/uL (0-1.0); Monocytes % (A) 10 %; Neutrophils # (A) 3.4 k/uL (1.3-7.7); Neutrophils % (A) 68 %; RBC 2.41 m/uL (3.80-5.40); RDW 17.2 % (11.5-15.5); WBC 4.9 k/uL (3.8-10.6)
[2018-10-13 06:53] LABS: HCT 19.9 % (34.0-46.0); HGB 6.5 gm/dL (11.4-16.0)
[2018-10-13] MEDS: LEVOTHYROXINE 25 MCG TAB PO SCH (07:01)
[2018-10-13] MEDS: MIDODRINE 5 MG TAB PO SCH ×3 (07:01→21:19)
--- NOTE | 2018-10-13 11:54 | P.PN ---
Subjective Progress Note Date: 10/13/18 Principal diagnosis: Acute metabolic encephalopathy secondary to alcohol liver disease and liver cirrhosis/hepatic encephalopathy and acute kidney injury. This is a 48-year-old female with known history of liver cirrhosis, poor historian, confused, patient was brought into the ER yesterday, and the chief complaint was mostly change in mental status, fatigue, and known history of liver cirrhosis. The patient herself could not volunteer any information because she seems to be quite confused and encephalopathic. Patient was also noted to be hypotensive, did not respond to fluids after 2 L, hence the patient was placed on norepinephrine , presently at 17 mcg/m. On admission, the patient was found to have significant abnormal labs including elevated potassium of 7.1, she had poor urine output, and she was quite acidotic, bicarb level was 11. In the ER the patient received a total of 4 L of 0.9 normal saline. And she was placed on a bicarb drip running at 150 mL per hour at this point. Patient was admitted to the ICU, required norepinephrine, she was seen by liquefaction supervisor morning, and The patient on bicarb drip at relatively higher dose. Looking at the patient's past medical history, she is known to have history of liver disease, history of chronic ascites, GI bleeding/anemia, previous bariatric surgery, history of paracentesis and history of esophageal varices banding. Patient was in the hospital as off second half of August of 2018, and at that time the patient had profound anemia with a hemoglobin of 6.8 , she was also hypotensive at the time, and responded well to blood transfusion. He had a total of 3 units of packed RBCs given during her last admission. She did undergo a paracentesis at the time, and she had 7.1 L of fluids removed. Her renal functioning didn't improve at the time of her discharge back on September 05/2018. Her liver cirrhosis was basically diagnosed to be related to alcohol. Patient was reevaluated today on 10/11/2018, her mentation seems to be gradually improving. Her ammonia level is coming down nicely, and her kidney functioning is improving, admitted with creatinine of 3.47, presently 2.32. Her hemoglobin is 6.4, hence the patient is to receive a unit of packed RBCs today. Urine output is marginal at 20 mL per hour. Patient seems to be a bit more alert and oriented today compared to yesterday. At least she knew where she was, and she knew the year. All labs were reviewed, INR is 1.7, patient may eventually require paracentesis for ascites. And that is being addressed by gastroenterology on the case. Her BUN today is 78 creatinine is 2.32. And again her hemoglobin is low at 6.4. Patient was reevaluated today in the ICU on 10/12/2018. Patient is showing slow but steady improvement over the last 2 days. Her ammonia level keeps coming down nicely, all her labs are improving including her kidney profile, patient may undergo paracentesis today by interventional radiology. Her creatinine today is 1.81, it was 3.47 on admission. Remains on IV fluid at 75 mL per hour , sodium level is 124. Patient is encouraged to have more oral intake. But it is relatively poor. Hemoglobin was 6.4 yesterday, and she received a unit of packed RBCs. Labs today showed hemoglobin of 7.2 INR of 1.5, sodium is down to 124 BUN is 66 creatinine is 1.81. Mentation seems to be clearing steadily. Ammonia level is down to 18 from 47 yesterday. Patient denies any shortness of breath, no cough no wheezing, no fever no chills, she denies abdominal pain but she does have increased abdominal girth and ascites Reevaluated today on 10/13/2018, patient remains in the ICU, doing much better, she had a paracentesis done yesterday, and about 10 L of fluid from the abdomen was removed. Patient denies any shortness of breath, no cough no wheezing, continues to have some minimal swelling in her lower extremities, and her mental status seems to be clearing nicely over the last few days since admission. Her hemoglobin was noted to be low today, and I recommended a unit of packed RBC. This was recommended for hemoglobin of 6.5. Her INR is 1.6, creatinine is coming down nicely, it is 1.34 today with a BUN of 56. Patient presented initially with a creatinine of 3.47. Urine and blood cultures are negative, Gram stain from the peritoneal fluid is negative. Patient is only on Rocephin, vancomycin was discontinued. Objective - Vital Signs Vital signs: Vital Signs Temp 97.9 F 10/13/18 09:26 Pulse 73 10/13/18 08:00 Resp 12 10/13/18 08:00 BP 102/57 10/13/18 08:00 Pulse Ox 96 10/13/18 04:00 Intake & Output 10/12/18 10/13/18 10/13/18 18:59 06:59 18:59 Intake Total 2963.044 1200 0 Output Total 46356 1330 55 Balance -8246.956 -130 -55 Weight 116.4 kg Intake: IV 900 900 Sodium Chloride 0.9% 1, 900 900 000 ml @ 75 mls/hr IV . [id number] [facility] Rx#:[id number] Intake, IV Titration 160.044 Amount Albumin Human 25% 50 ml 100 In Empty Bag 1 bag @ 200 mls/hr IVPB Q15M [facility] Rx#: [id number] Norepinephrine 16 mg In 10.044 Sodium Chloride 0.9% 250 ml @ Titrate IV .Q0M [facility] Rx#:[id number] cefTRIAXone 1,000 mg In 50 Sodium Chloride 0.9% 50 ml @ 100 mls/hr IVPB Q24HR [facility] Rx#:[id number] Oral 1903 300 Blood Product 0 Rc As-1 Unit 0 [id number] Output: Urine 660 730 55 Stool 550 600 Other 12528 Other: Voiding Method Indwelling Catheter Indwelling Catheter - Exam Physical Exam: Revealed a 48-year-old female, obese, in no form of respiratory distress, alert oriented 3 today Head: Atraumatic normocephalic. HEENT:[Neck is supple.] [No neck masses.] [No thyromegaly.] [No JVD.] PERRLA, EOMI, no icterus. Dry mucous membranes. Chest: [Clear throughout, no crackles, no rhonchi, no wheezes.] Cardiac Exam: [Normal S1 and S2, no S3 gallop, no murmur.] Abdomen: [Obese, Soft, nontender, no megaly, no rebound, no guarding, normal bowel sounds. Positive ascites.] Extremities: [No clubbing, 1+ bipedal edema, no cyanosis.] Neurological Exam: Alert oriented 3, no gross focal neurologic deficit. Skin: No rashes. Looks pale. - Labs CBC & Chem 7: 10/13/18 05:50 10/13/18 05:50 Labs: Abnormal Lab Results - Last 24 Hours (Table) 10/11/18 10/13/18 10/13/18 Range/Units 08:20 05:50 05:50 RBC 2.41 L (3.80-5.40) m/uL Hgb 6.5 L* (11.4-16.0) gm/dL Hct 19.9 L* (34.0-46.0) % RDW 17.2 H (11.5-15.5) % PT 15.6 H (9.0-12.0) sec INR 1.6 H (<1.2) APTT 36.0 H (22.0-30.0) sec Sodium (137-145) mmol/L Potassium (3.5-5.1) mmol/L Chloride (98-107) mmol/L BUN (7-17) mg/dL Creatinine (0.52-1.04) mg/dL Calcium (8.4-10.2) mg/dL Total Bilirubin (0.2-1.3) mg/dL AST (14-36) U/L Alkaline Phosphatase (38-126) U/L Total Protein (6.3-8.2) g/dL Albumin (3.5-5.0) g/dL Crossmatch See Detail 10/13/18 Range/Units 05:50 RBC (3.80-5.40) m/uL Hgb (11.4-16.0) gm/dL Hct (34.0-46.0) % RDW (11.5-15.5) % PT (9.0-12.0) sec INR (<1.2) APTT (22.0-30.0) sec Sodium 124 L (137-145) mmol/L Potassium 3.2 L (3.5-5.1) mmol/L Chloride 95 L (98-107) mmol/L BUN 56 H (7-17) mg/dL Creatinine 1.34 H (0.52-1.04) mg/dL Calcium 7.3 L (8.4-10.2) mg/dL Total Bilirubin 1.9 H (0.2-1.3) mg/dL AST 59 H (14-36) U/L Alkaline Phosphatase 166 H (38-126) U/L Total Protein 4.3 L (6.3-8.2) g/dL Albumin 1.9 L (3.5-5.0) g/dL Crossmatch Microbiology - Last 24 Hours (Table) 10/12/18 16:35 Gram Stain - Preliminary Ascites Fluid Body Fluid Culture - Preliminary 10/10/18 00:38 Blood Culture - Preliminary Blood No Growth after 72 hours Assessment and Plan Assessment: Impression: 1 altered mental status secondary to metabolic encephalopathy secondary to alcohol liver disease and liver cirrhosis. Mostly hepatic encephalopathy. 2 acute hypotension, requiring significant amount of fluids and pressors, could very well be secondary to hypovolemia and intravascular depletion, sepsis was basically ruled out. 3 acute kidney injury secondary to acute tubular necrosis with hypotension. Improving. 4 acute hyperkalemia secondary to acute kidney injury and Aldactone. Resolved. 5 acute urinary tract infection was suspected initially but ruled out based on the cultures. 6 acute metabolic acidosis secondary to acute kidney injury. Resolved 7 acute lactic acidosis, secondary to underlying liver disease. 8 hypotension, related to hypovolemia, sepsis was ruled out. Recommendation: Continue present supportive care measures, continue fluids, continue lactulose and adjust the dose according the ammonia level, continue Rocephin empirically, patient will be transfused with a unit of packed RBCs, her anemia will be addressed by the admitting physician, at this point the patient could be considered to go to a regular medical floor, I will sign off the patient and see on when necessary basis. Time with Patient: Less than 30
--- NOTE | 2018-10-13 11:54 | P.PN ---
Subjective Progress Note Date: 10/13/18 Seen and examined for the follow-up of acute kidney injury. Complaining of lower extremity edema. Off levo fed. No nausea vomiting or diarrhea. Hemoglobin still low. Objective - Vital Signs Vital signs: Vital Signs Temp 97.9 F 10/13/18 09:26 Pulse 73 10/13/18 08:00 Resp 12 10/13/18 08:00 BP 102/57 10/13/18 08:00 Pulse Ox 96 10/13/18 04:00 Intake & Output 10/12/18 10/13/18 10/13/18 18:59 06:59 18:59 Intake Total 2963.044 1200 0 Output Total 66457 1330 55 Balance -8246.956 -130 -55 Weight 116.4 kg Intake: IV 900 900 Sodium Chloride 0.9% 1, 900 900 000 ml @ 75 mls/hr IV . [id number] [facility] Rx#:[id number] Intake, IV Titration 160.044 Amount Albumin Human 25% 50 ml 100 In Empty Bag 1 bag @ 200 mls/hr IVPB Q15M [facility] Rx#: [id number] Norepinephrine 16 mg In 10.044 Sodium Chloride 0.9% 250 ml @ Titrate IV .Q0M [facility] Rx#:[id number] cefTRIAXone 1,000 mg In 50 Sodium Chloride 0.9% 50 ml @ 100 mls/hr IVPB Q24HR [facility] Rx#:[id number] Oral 1903 300 Blood Product 0 Rc As-1 Unit 0 [id number] Output: Urine 660 730 55 Stool 550 600 Other 82421 Other: Voiding Method Indwelling Catheter Indwelling Catheter - Exam No acute distress S1-S2 heard Lungs clear Abdomen slightly distended Edema. - Labs CBC & Chem 7: 10/13/18 05:50 10/13/18 05:50 Labs: Abnormal Lab Results - Last 24 Hours (Table) 10/11/18 10/13/18 10/13/18 Range/Units 08:20 05:50 05:50 RBC 2.41 L (3.80-5.40) m/uL Hgb 6.5 L* (11.4-16.0) gm/dL Hct 19.9 L* (34.0-46.0) % RDW 17.2 H (11.5-15.5) % PT 15.6 H (9.0-12.0) sec INR 1.6 H (<1.2) APTT 36.0 H (22.0-30.0) sec Sodium (137-145) mmol/L Potassium (3.5-5.1) mmol/L Chloride (98-107) mmol/L BUN (7-17) mg/dL Creatinine (0.52-1.04) mg/dL Calcium (8.4-10.2) mg/dL Total Bilirubin (0.2-1.3) mg/dL AST (14-36) U/L Alkaline Phosphatase (38-126) U/L Total Protein (6.3-8.2) g/dL Albumin (3.5-5.0) g/dL Crossmatch See Detail 10/13/18 Range/Units 05:50 RBC (3.80-5.40) m/uL Hgb (11.4-16.0) gm/dL Hct (34.0-46.0) % RDW (11.5-15.5) % PT (9.0-12.0) sec INR (<1.2) APTT (22.0-30.0) sec Sodium 124 L (137-145) mmol/L Potassium 3.2 L (3.5-5.1) mmol/L Chloride 95 L (98-107) mmol/L BUN 56 H (7-17) mg/dL Creatinine 1.34 H (0.52-1.04) mg/dL Calcium 7.3 L (8.4-10.2) mg/dL Total Bilirubin 1.9 H (0.2-1.3) mg/dL AST 59 H (14-36) U/L Alkaline Phosphatase 166 H (38-126) U/L Total Protein 4.3 L (6.3-8.2) g/dL Albumin 1.9 L (3.5-5.0) g/dL Crossmatch Microbiology - Last 24 Hours (Table) 10/12/18 16:35 Gram Stain - Preliminary Ascites Fluid Body Fluid Culture - Preliminary 10/10/18 00:38 Blood Culture - Preliminary Blood No Growth after 72 hours Assessment and Plan Assessment: #1 nonoliguric acute kidney injury secondary to hemodynamic ATN. Creatinine improving. #2 decompensated liver cirrhosis status post paracentesis #3 hyperkalemia resolved #4 edema #5 shock off pressors. #6 hypervolemic hyponatremia Plan: #1 creatinine improving. Stop IV fluids continue oral feeds. #2 maintain hemoglobin more than 8. #3 stop sodium bicarbonate and PhosLo. Repeat labs in the morning. #4 if sodium still low by tomorrow give low-dose Lasix.
[2018-10-13 12:26] LABS: Poikilocytosis (M) Present; Toxic Granulation Present
[2018-10-13 12:27] LABS: Platelet Count 91 k/uL (150-450)
[2018-10-13 12:28] LABS: RBC Fragments Present
[2018-10-13] MEDS ORDERED: FERROUS SULFATE 325 MG TAB PO ONE (12:30)
[2018-10-13] MEDS ORDERED: PANTOPRAZOLE 40 MG TABLET PO ONE (12:30)
[2018-10-13] MEDS ORDERED: GABAPENTIN 100 MG CAP ONE (12:30)
[2018-10-13] MEDS ORDERED: LACTULOSE 20 GM/30 ML CUP ONE (12:30)
[2018-10-13] MEDS ORDERED: MIDODRINE 5 MG TAB ONE (12:30)
[2018-10-13] MEDS: PANTOPRAZOLE 40 MG TABLET PO SCH (21:17)
[2018-10-13] MEDS: LACTULOSE 20 GM/30 ML CUP PO SCH ×3 (21:17→22:46)
[2018-10-13] MEDS: GABAPENTIN 100 MG CAP PO SCH ×3 (21:17→22:45)
[2018-10-13] MEDS: FERROUS SULFATE 325 MG TAB PO SCH ×2 (21:17→22:45)
[2018-10-13 21:18] LABS: Anisocytosis Slight; HCT 24.9 % (34.0-46.0); MCH 27.1 pg (25.0-35.0); MCV 84.5 fL (80.0-100.0); Mean Platelet Volume 7.5; Platelet Count 104 k/uL (150-450); RBC 2.95 m/uL (3.80-5.40); RDW 17.2 % (11.5-15.5); WBC 7.4 k/uL (3.8-10.6)
[2018-10-14 06:01] LABS: Anisocytosis Slight; Basophils % (A) 0 %; Eosinophils # (A) 0.2 k/uL (0-0.7); Eosinophils % (A) 3 %; HCT 24.8 % (34.0-46.0); HGB 7.9 gm/dL (11.4-16.0); Hypochromasia Moderate; Lymphocytes # (A) 0.9 k/uL (1.0-4.8); Lymphocytes % (A) 16 %; MCH 27.3 pg (25.0-35.0); MCHC 31.8 g/dL (31.0-37.0); MCV 85.8 fL (80.0-100.0); Mean Platelet Volume 6.7; Monocytes # (A) 0.4 k/uL (0-1.0); Monocytes % (A) 8 %; Neutrophils # (A) 3.7 k/uL (1.3-7.7); Neutrophils % (A) 70 %; RBC 2.89 m/uL (3.80-5.40); WBC 5.4 k/uL (3.8-10.6)
[2018-10-14 06:08] LABS: Calcium 7.4 mg/dL (8.4-10.2); Magnesium 2.2 mg/dL (1.6-2.3); Phosphorus 3.2 mg/dL (2.5-4.5); Total Bilirubin 2.1 mg/dL (0.2-1.3); Total Protein 4.5 g/dL (6.3-8.2)
[2018-10-14 06:09] LABS: Platelet Count 91 k/uL (150-450)
[2018-10-14 06:20] LABS: INR 1.5 (<1.2); Prothrombin Time 14.8 sec (9.0-12.0)
[2018-10-14 06:21] LABS: Partial Thromboplastin Time 33.9 sec (22.0-30.0)
[2018-10-14] MEDS: MIDODRINE 5 MG TAB PO SCH ×3 (06:47→17:47)
[2018-10-14] MEDS: LEVOTHYROXINE 25 MCG TAB PO SCH (06:47)
[2018-10-14] MEDS: GABAPENTIN 100 MG CAP PO SCH ×3 (09:14→22:39)
[2018-10-14] MEDS: PANTOPRAZOLE 40 MG TABLET PO SCH (09:14)
[2018-10-14] MEDS: FERROUS SULFATE 325 MG TAB PO SCH ×2 (09:14→22:39)
[2018-10-14] MEDS: POTASSIUM CHLORIDE ER 20 MEQ TAB.ER PO SCH ×2 (09:26→10:35)
--- NOTE | 2018-10-14 10:33 | P.PN ---
Subjective Progress Note Date: 10/14/18 Seen and examined for the follow-up of acute kidney injury. She is having diarrhea and also on lactulose. Feels better. Law catheter in 1275 ML's of urine output in the last 24 hours. Objective - Vital Signs Vital signs: Vital Signs Temp 97.5 F L 10/14/18 08:00 Pulse 79 10/14/18 09:00 Resp 15 10/14/18 09:00 BP 113/57 10/14/18 09:00 Pulse Ox 96 10/14/18 09:00 Intake & Output 10/13/18 10/14/18 10/14/18 18:59 06:59 18:59 Intake Total 0 100 218 Output Total 55 1220 150 Balance -55 -1120 68 Weight 125.2 kg Intake: Oral 100 218 Blood Product 0 Rc As-1 Unit 0 [id number] Output: Urine 55 620 150 Stool 600 Other: Voiding Method Indwelling Catheter - Exam No acute distress S1-S2 heard Lungs clear Abdomen slightly distended Edema. - Labs CBC & Chem 7: 10/14/18 04:52 10/14/18 04:52 Labs: Abnormal Lab Results - Last 24 Hours (Table) 10/13/18 10/13/18 10/14/18 Range/Units 05:50 20:50 04:52 RBC 2.41 L 2.95 L 2.89 L (3.80-5.40) m/uL Hgb 6.5 L* 8.0 L D 7.9 L (11.4-16.0) gm/dL Hct 19.9 L* 24.9 L 24.8 L (34.0-46.0) % RDW 17.2 H 17.2 H 17.0 H (11.5-15.5) % Plt Count 91 L 104 L 91 L (150-450) k/uL Lymphocytes # 0.8 L 0.9 L (1.0-4.8) k/uL PT (9.0-12.0) sec INR (<1.2) APTT (22.0-30.0) sec Sodium (137-145) mmol/L Potassium (3.5-5.1) mmol/L Chloride (98-107) mmol/L BUN (7-17) mg/dL Creatinine (0.52-1.04) mg/dL Calcium (8.4-10.2) mg/dL Total Bilirubin (0.2-1.3) mg/dL AST (14-36) U/L Alkaline Phosphatase (38-126) U/L Total Protein (6.3-8.2) g/dL Albumin (3.5-5.0) g/dL 10/14/18 10/14/18 Range/Units 04:52 04:52 RBC (3.80-5.40) m/uL Hgb (11.4-16.0) gm/dL Hct (34.0-46.0) % RDW (11.5-15.5) % Plt Count (150-450) k/uL Lymphocytes # (1.0-4.8) k/uL PT 14.8 H (9.0-12.0) sec INR 1.5 H (<1.2) APTT 33.9 H (22.0-30.0) sec Sodium 125 L (137-145) mmol/L Potassium 3.0 L (3.5-5.1) mmol/L Chloride 97 L (98-107) mmol/L BUN 46 H (7-17) mg/dL Creatinine 1.05 H (0.52-1.04) mg/dL Calcium 7.4 L (8.4-10.2) mg/dL Total Bilirubin 2.1 H (0.2-1.3) mg/dL AST 61 H (14-36) U/L Alkaline Phosphatase 177 H (38-126) U/L Total Protein 4.5 L (6.3-8.2) g/dL Albumin 2.0 L (3.5-5.0) g/dL Microbiology - Last 24 Hours (Table) 10/10/18 00:38 Blood Culture - Preliminary Blood No Growth after 96 hours 10/12/18 16:35 Gram Stain - Preliminary Ascites Fluid Body Fluid Culture - Preliminary Assessment and Plan Assessment: #1 nonoliguric acute kidney injury secondary to hemodynamic ATN. Creatinine improving. #2 decompensated liver cirrhosis status post paracentesis #3 hyperkalemia resolved, currently hypokalemic #4 edema #5 shock off pressors. #6 hypervolemic hyponatremia. Plan: #1 creatinine improving. #2 maintain hemoglobin more than 8. #3 potassium replacement. And stop renal diet #4 if sodium still low by tomorrow give low-dose Lasix.
[2018-10-14] MEDS ORDERED: POTASSIUM CHLORIDE ER 20 MEQ TAB.ER PO ONE (11:00)
[2018-10-14] MEDS: LACTULOSE 20 GM/30 ML CUP PO SCH ×2 (11:40→22:38)
[2018-10-14] MEDS ORDERED: POTASSIUM CHLORIDE ER 20 MEQ TAB.ER PO SCH (16:00)
--- NOTE | 2018-10-15 00:02 | P.PN ---
Subjective Progress Note Date: 10/13/18 Principal diagnosis: Acute metabolic encephalopathy secondary to alcohol liver disease and liver cirrhosis/hepatic encephalopathy acute kidney injury. This is a 48-year-old female with known history of alcoholic liver cirrhosis, Chronic ascites, GI bleeding/anemia, previous bariatric surgery, history of paracentesis and history of esophageal varices banding. poor historian, confused , patient was brought into the ER with chief complaint of change in mental status, fatigue, and known history of liver cirrhosis. On admission, the patient was found to have significant abnormal labs including elevated potassium of 7.1, she had poor urine output, and she was quite acidotic , bicarb level was 11. In the ER the patient received a total of 4 L of 0.9 normal saline. And she was placed on a bicarb drip running at 150 mL per hour at this point. Patient was admitted to the ICU, required norepinephrine. Currently off pressor support. Ammonia level is trending down as well. 10/13/2018 Patient is currently able to sit in the bed comfortably. Awake and oriented. No complaints of chest pain or shortness of breath. Mental status is much improved at this time. Hemoglobin is 6.5 today. Patient had 1 unit of PRBC transfusion. BUN 56 and creatinine 1.34, compared to 3.47 on admission. Sodium 124 and potassium 3.2 Blood cultures and urine cultures are negative. Patient is being continued on ceftriaxone. No fever no chills. No complaints of abdominal pain. No nausea vomiting. Current medications reviewed. Objective - Vital Signs Vital signs: Vital Signs Temp 97.5 F L 10/14/18 08:00 Pulse 79 10/14/18 09:00 Resp 15 10/14/18 09:00 BP 113/57 10/14/18 09:00 Pulse Ox 96 10/14/18 09:00 Intake & Output 10/13/18 10/14/18 10/14/18 18:59 06:59 18:59 Intake Total 0 100 218 Output Total 55 1220 150 Balance -55 -1120 68 Weight 125.2 kg Intake: Oral 100 218 Blood Product 0 Rc As-1 Unit 0 [id number] Output: Urine 55 620 150 Stool 600 Other: Voiding Method Indwelling Catheter - Exam PHYSICAL EXAMINATION: Patient is lying in the bed comfortably, no acute distress, awake alert and oriented.. HEENT: Normocephalic. Neck is supple. Pupils reactive. Nostrils clear. Oral cavity is moist. Ears reveal no drainage. Neck reveals no JVD, carotid bruits, or thyromegaly. CHEST EXAMINATION: Trachea is central. Symmetrical expansion. Lung sargent clear to auscultation and percussion. CARDIAC: Normal S1, S2 with no gallops. No murmurs ABDOMEN: Soft. Bowel sounds normal. No organomegaly. No abdominal bruits. Extremities: reveal no edema. No clubbing or cyanosis Neurologically awake, alert, oriented x3 with well-coordinated movements. No focal deficits noted Skin: No rash or skin lesions. Psychiatric: Coperative. Nonsuicidal Musculoskeletal: No joint swelling or deformity. Normal range of motion. - Labs CBC & Chem 7: 10/14/18 04:52 10/14/18 14:18 Labs: Abnormal Lab Results - Last 24 Hours (Table) 10/13/18 10/13/18 10/14/18 Range/Units 05:50 20:50 04:52 RBC 2.41 L 2.95 L 2.89 L (3.80-5.40) m/uL Hgb 6.5 L* 8.0 L D 7.9 L (11.4-16.0) gm/dL Hct 19.9 L* 24.9 L 24.8 L (34.0-46.0) % RDW 17.2 H 17.2 H 17.0 H (11.5-15.5) % Plt Count 91 L 104 L 91 L (150-450) k/uL Lymphocytes # 0.8 L 0.9 L (1.0-4.8) k/uL PT (9.0-12.0) sec INR (<1.2) APTT (22.0-30.0) sec Sodium (137-145) mmol/L Potassium (3.5-5.1) mmol/L Chloride (98-107) mmol/L BUN (7-17) mg/dL Creatinine (0.52-1.04) mg/dL Calcium (8.4-10.2) mg/dL Total Bilirubin (0.2-1.3) mg/dL AST (14-36) U/L Alkaline Phosphatase (38-126) U/L Total Protein (6.3-8.2) g/dL Albumin (3.5-5.0) g/dL 10/14/18 10/14/18 Range/Units 04:52 04:52 RBC (3.80-5.40) m/uL Hgb (11.4-16.0) gm/dL Hct (34.0-46.0) % RDW (11.5-15.5) % Plt Count (150-450) k/uL Lymphocytes # (1.0-4.8) k/uL PT 14.8 H (9.0-12.0) sec INR 1.5 H (<1.2) APTT 33.9 H (22.0-30.0) sec Sodium 125 L (137-145) mmol/L Potassium 3.0 L (3.5-5.1) mmol/L Chloride 97 L (98-107) mmol/L BUN 46 H (7-17) mg/dL Creatinine 1.05 H (0.52-1.04) mg/dL Calcium 7.4 L (8.4-10.2) mg/dL Total Bilirubin 2.1 H (0.2-1.3) mg/dL AST 61 H (14-36) U/L Alkaline Phosphatase 177 H (38-126) U/L Total Protein 4.5 L (6.3-8.2) g/dL Albumin 2.0 L (3.5-5.0) g/dL Microbiology - Last 24 Hours (Table) 10/10/18 00:38 Blood Culture - Preliminary Blood No Growth after 96 hours 10/12/18 16:35 Gram Stain - Preliminary Ascites Fluid Body Fluid Culture - Preliminary Assessment and Plan Assessment: Altered mental status secondary to hepatic encephalopathy improved now Acute hypotension on admission requiring pressor support likely due to volume depletion. Sepsis ruled out Hyperkalemia. Resolved. Acute metabolic acidosis secondary to acute kidney injury. Off Cardizem drip. Acute kidney injury secondary to ATN. Possible urinary tract infection. Urine culture showed no growth. Chronic alcohol at liver cirrhosis and history of ascites and paracentesis previously. Lactic acidosis resolved History of recent acidosis Coagulopathy secondary to liver disease Hypoalbuminemia Morbid obesity BMI 42.0 Plan: Patient will be continued on antibiotics in the form of ceftriaxone. Hypotension improved. Patient is currently off pressor support. Replace potassium and monitor renal function. Continue with lactulose. Further recommendations based on clinical course. Nephrology and pulmonary is following. Prognosis is guarded. Time with Patient: Greater than 30
--- NOTE | 2018-10-15 00:05 | P.PN ---
Subjective Progress Note Date: 10/14/18 Principal diagnosis: Acute metabolic encephalopathy secondary to alcohol liver disease and liver cirrhosis/hepatic encephalopathy acute kidney injury. This is a 48-year-old female with known history of alcoholic liver cirrhosis, Chronic ascites, GI bleeding/anemia, previous bariatric surgery, history of paracentesis and history of esophageal varices banding. poor historian, confused , patient was brought into the ER with chief complaint of change in mental status, fatigue, and known history of liver cirrhosis. On admission, the patient was found to have significant abnormal labs including elevated potassium of 7.1, she had poor urine output, and she was quite acidotic , bicarb level was 11. In the ER the patient received a total of 4 L of 0.9 normal saline. And she was placed on a bicarb drip running at 150 mL per hour at this point. Patient was admitted to the ICU, required norepinephrine. Currently off pressor support. Ammonia level is trending down as well. 10/13/2018 Patient is currently able to sit in the bed comfortably. Awake and oriented. No complaints of chest pain or shortness of breath. Mental status is much improved at this time. Hemoglobin is 6.5 today. Patient had 1 unit of PRBC transfusion. BUN 56 and creatinine 1.34, compared to 3.47 on admission. Sodium 124 and potassium 3.2 Blood cultures and urine cultures are negative. Patient is being continued on ceftriaxone. No fever no chills. No complaints of abdominal pain. No nausea vomiting. 10/14/2018 Patient is currently sitting in a chair comfortably. Able to tolerate oral diet. Mentation is much improved. Hemoglobin is 7.9. Renal function is much improved with creatinine level I.05. Potassium is being replaced. Sodium level is 125 today. Patient is being continued on antibiotics in the form of ceftriaxone. Patient denied any complaints of fever or chills. No commerce of abdominal pain. No nausea vomiting. No hematemesis. Current medications reviewed. Objective - Vital Signs Vital signs: Vital Signs Temp 98.6 F 10/14/18 20:00 Pulse 65 10/14/18 20:00 Resp 20 10/14/18 20:00 BP 115/62 10/14/18 20:00 Pulse Ox 96 10/14/18 20:00 Intake & Output 10/14/18 10/14/18 10/15/18 06:59 18:59 06:59 Intake Total 100 418 Output Total 1220 900 Balance -1120 -482 Weight 125.2 kg Intake: Oral 100 418 Output: Urine 620 500 Stool 600 400 Other: Voiding Method Indwelling Catheter Indwelling Catheter - Exam PHYSICAL EXAMINATION: Patient is lying in the bed comfortably, no acute distress, awake alert and oriented.. HEENT: Normocephalic. Neck is supple. Pupils reactive. Nostrils clear. Oral cavity is moist. Ears reveal no drainage. Neck reveals no JVD, carotid bruits, or thyromegaly. CHEST EXAMINATION: Trachea is central. Symmetrical expansion. Lung sargent clear to auscultation and percussion. CARDIAC: Normal S1, S2 with no gallops. No murmurs ABDOMEN: Soft. Bowel sounds normal. No organomegaly. No abdominal bruits. Extremities: reveal no edema. No clubbing or cyanosis Neurologically awake, alert, oriented x3 with well-coordinated movements. No focal deficits noted Skin: No rash or skin lesions. Psychiatric: Coperative. Nonsuicidal Musculoskeletal: No joint swelling or deformity. Normal range of motion. - Labs CBC & Chem 7: 10/14/18 04:52 10/14/18 14:18 Labs: Abnormal Lab Results - Last 24 Hours (Table) 10/14/18 10/14/18 10/14/18 Range/Units 04:52 04:52 04:52 RBC 2.89 L (3.80-5.40) m/uL Hgb 7.9 L (11.4-16.0) gm/dL Hct 24.8 L (34.0-46.0) % RDW 17.0 H (11.5-15.5) % Plt Count 91 L (150-450) k/uL Lymphocytes # 0.9 L (1.0-4.8) k/uL PT 14.8 H (9.0-12.0) sec INR 1.5 H (<1.2) APTT 33.9 H (22.0-30.0) sec Sodium 125 L (137-145) mmol/L Potassium 3.0 L (3.5-5.1) mmol/L Chloride 97 L (98-107) mmol/L BUN 46 H (7-17) mg/dL Creatinine 1.05 H (0.52-1.04) mg/dL Calcium 7.4 L (8.4-10.2) mg/dL Total Bilirubin 2.1 H (0.2-1.3) mg/dL AST 61 H (14-36) U/L Alkaline Phosphatase 177 H (38-126) U/L Total Protein 4.5 L (6.3-8.2) g/dL Albumin 2.0 L (3.5-5.0) g/dL Microbiology - Last 24 Hours (Table) 10/12/18 16:35 Gram Stain - Preliminary Ascites Fluid Body Fluid Culture - Preliminary 10/10/18 00:38 Blood Culture - Preliminary Blood No Growth after 96 hours Assessment and Plan Assessment: Altered mental status secondary to hepatic encephalopathy improved now Acute hypotension on admission requiring pressor support likely due to volume depletion. Sepsis ruled out Hyperkalemia. Resolved. Acute metabolic acidosis secondary to acute kidney injury. Off Cardizem drip. Acute kidney injury secondary to ATN. Possible urinary tract infection. Urine culture showed no growth. Chronic alcohol at liver cirrhosis and history of ascites and paracentesis previously. Lactic acidosis resolved History of recent acidosis Coagulopathy secondary to liver disease Hypoalbuminemia Hypervolemic hyponatremia Morbid obesity BMI 42.0 Plan: Patient will be continued on antibiotics in the form of ceftriaxone. Hypotension improved. Patient is currently off pressor support. Replace potassium and monitor renal function. Continue with lactulose. Further recommendations based on clinical course. Nephrology and pulmonary is following. Prognosis is guarded. Time with Patient: Greater than 30
[2018-10-15 05:02] LABS: INR 1.4 (<1.2); Partial Thromboplastin Time 29.4 sec (22.0-30.0); Prothrombin Time 14.6 sec (9.0-12.0)
[2018-10-15 05:06] LABS: Potassium 3.5 mmol/L (3.5-5.1)
[2018-10-15 05:07] LABS: Anisocytosis Slight; Basophils % (A) 0 %; Eosinophils # (A) 0.2 k/uL (0-0.7); Eosinophils % (A) 3 %; HCT 26.8 % (34.0-46.0); HGB 8.5 gm/dL (11.4-16.0); Hypochromasia Slight; Lymphocytes % (A) 13 %; MCHC 31.9 g/dL (31.0-37.0); MCV 84.6 fL (80.0-100.0); Mean Platelet Volume 7.4; Monocytes # (A) 0.5 k/uL (0-1.0); Monocytes % (A) 6 %; Neutrophils # (A) 5.5 k/uL (1.3-7.7); Neutrophils % (A) 74 %; Platelet Count 116 k/uL (150-450); RBC 3.16 m/uL (3.80-5.40); RDW 17.3 % (11.5-15.5); WBC 7.5 k/uL (3.8-10.6)
[2018-10-15 05:08] LABS: Calcium 7.5 mg/dL (8.4-10.2); Magnesium 2.2 mg/dL (1.6-2.3); Phosphorus 2.3 mg/dL (2.5-4.5); Total Bilirubin 1.5 mg/dL (0.2-1.3); Total Protein 4.7 g/dL (6.3-8.2)
[2018-10-15] MEDS ORDERED: Potassium Replacement Protocol 1 EACH MISC MISCELLANE PRN (05:12)
[2018-10-15] MEDS: LEVOTHYROXINE 25 MCG TAB PO SCH (06:37)
[2018-10-15] MEDS: MIDODRINE 5 MG TAB PO SCH ×3 (06:37→17:37)
[2018-10-15] MEDS: POTASSIUM CHLORIDE ER 20 MEQ TAB.ER PO SCH ×2 (06:39→08:55)
[2018-10-15] MEDS: FERROUS SULFATE 325 MG TAB PO SCH ×2 (08:55→21:11)
[2018-10-15] MEDS: LACTULOSE 20 GM/30 ML CUP PO SCH ×2 (08:55→21:11)
[2018-10-15] MEDS: GABAPENTIN 100 MG CAP PO SCH ×3 (08:55→21:11)
[2018-10-15] MEDS: PANTOPRAZOLE 40 MG TABLET PO SCH (08:55)
[2018-10-15] MEDS ORDERED: FUROSEMIDE 10 MG/ML 4 ML VIAL IV STA (10:12)
[2018-10-15] MEDS ORDERED: POTASSIUM PHOSPHATE 10 MMOL in SODIUM CHLORIDE 0.9% 250 ML IV ONE (10:30)
--- NOTE | 2018-10-15 10:30 | P.PN ---
Subjective Patient is seen in follow for acute kidney injury. Creatinine was 3.47 on admission and is down to 1.02 today. Currently off all IV fluids. Oral intake is gradually improving. Sodium level . stable at 124. She is nonoliguric. Vital signs are stable. General: The patient appeared well nourished and normally developed. HEENT: Head exam is unremarkable. Neck is without jugular venous distension. NG tube noted. LUNGS: Lungs are clear to auscultation and percussion. Breath sounds decreased. HEART: Rate and Rhythm are regular. First and second heart sounds normal. No murmurs, rubs or gallops. ABDOMEN: Abdominal exam reveals normal bowel sounds. Nontender. EXTREMITITES: Trace edema. Objective - Vital Signs Vital signs: Vital Signs Temp 98.7 F 10/15/18 08:00 Pulse 76 10/15/18 08:00 Resp 15 10/15/18 08:00 BP 103/52 10/15/18 04:00 Pulse Ox 95 10/15/18 08:00 Intake & Output 10/14/18 10/15/18 10/15/18 18:59 06:59 18:59 Intake Total 418 1194 Output Total 900 675 400 Balance -482 519 -400 Weight 118.6 kg Intake: Oral 418 1194 Output: Urine 500 675 Stool 400 400 Other: Voiding Method Indwelling Catheter Indwelling Catheter Indwelling Catheter - Labs CBC & Chem 7: 10/15/18 04:25 10/15/18 04:25 Labs: Abnormal Lab Results - Last 24 Hours (Table) 10/15/18 10/15/18 10/15/18 Range/Units 04:25 04:25 04:25 RBC 3.16 L (3.80-5.40) m/uL Hgb 8.5 L (11.4-16.0) gm/dL Hct 26.8 L (34.0-46.0) % RDW 17.3 H (11.5-15.5) % Plt Count 116 L (150-450) k/uL PT 14.6 H (9.0-12.0) sec INR 1.4 H (<1.2) Sodium 124 L (137-145) mmol/L Chloride 95 L (98-107) mmol/L BUN 41 H (7-17) mg/dL Glucose 115 H (74-99) mg/dL Calcium 7.5 L (8.4-10.2) mg/dL Phosphorus 2.3 L (2.5-4.5) mg/dL Total Bilirubin 1.5 H (0.2-1.3) mg/dL AST 59 H (14-36) U/L Alkaline Phosphatase 180 H (38-126) U/L Total Protein 4.7 L (6.3-8.2) g/dL Albumin 2.0 L (3.5-5.0) g/dL Microbiology - Last 24 Hours (Table) 10/10/18 00:38 Blood Culture - Preliminary Blood No Growth after 120 hours 10/12/18 16:35 Gram Stain - Preliminary Ascites Fluid Body Fluid Culture - Preliminary Assessment and Plan Plan: Assessment: 1. Acute kidney injury secondary to ATN secondary to hypotension/sepsis. Creatinine was 3.47 on admission and is 1.02 today. Baseline creatinine is near 1. 2. Hyponatremia due to poor solute intake and also hypervolemia. Ascites noted on abdominal ultrasound - status post paracentesis with 10 L removed on October 12. 3. Hyperkalemia secondary to acute kidney injury, metabolic acidosis and Aldactone. Improved with medical management. Now slightly hypokalemic. 4. Liver cirrhosis. 5. Altered mental status. Etiology is hepatic encephalopathy as well as UTI. 6. Metabolic acidosis secondary to acute kidney injury and lactic acidosis. Better. 7. Hypotension secondary to sepsis. Off vasopressors. Cortisol level normal. 8. Hyperphosphatemia secondary to acute kidney injury. Maintained on PhosLo. Phosphorus low today at 2.3. 9. Acute blood loss anemia status post blood transfusion and IV DDAVP on October 11. Hemoglobin stable. 10. Ascites scheduled for paracentesis on October 12 10 L removed. Plan: Lasix 40 mg IV once today. Maintain midodrine. Avoid nephrotoxins. Continue to monitor renal function and urine output. 1500 mL fluid restriction. Maintain ensure with meals. Check urine sodium, serum and urine osmolality. Potassium and phosphorus being replaced.
--- NOTE | 2018-10-15 12:35 | P.CONS ---
History of Present Illness - Chief Complaint Medical debility - History of Present Illness I had the opportunity to see patient for inpatient rehab consultation with regard to medical debility. She was admitted to [facility] October 09 with fatigue and mental status change. Seen by Dr. Lyman for acute kidney injury with hypovolemic hyponatremia, hyperkalemia. Seen by Dr. Figueredo who notes metabolic encephalopathy related to alcoholic liver disease. Chest x-rays followed for possible small left pleural effusion. Head CT negative. Abdominal ultrasound with ascites. Patient did undergo paracentesis. PT reports total assistance for functional mobility and Monday. Previous functional history as elicited from patient: 48-year-old right-handed white female who is single lives in one floor home with boyfriend and son. Patient reports that she had disability which is now lapsed and is unemployed/ Works part-time. Patient reports independent with cooking, laundry, driving, shower, gait without device. Smokes a half pack per day. Denied alcohol with me all the history of alcohol liver disease. Dr. Jones is regular doctor. Family history of father with diabetes in mother with hypertension. Review of Systems Review of systems: ENT: Denies sneezes or discharge. Eyes: Denies discharge or photophobia. Cardiac: Denies chest pain or palpitation. Pulmonary: Denies cough or shortness of breath. Breast: Denies discharge or lumps. Gastrointestinal: Denies nausea, emesis, constipation, diarrhea. Genitourinary: Denies discharge or frequency. Musculoskeletal: Denies muscle or bone aches. Neurologic: Patient reports severe weakness last week which is now resolving. Is aware of mental status changes last week. Endocrine: Denies shakes or sweats. Oncology: Denies cancers. Dermatologic: Denies rash, itching, pruritus. ALLERGY/immunology: Denies sneezes, rashes. Past Medical History Past Medical History: GI Bleed, Liver Disease Additional Past Medical History / Comment(s): ascites,"hernia", gi bleed/anemia -required blood transfusions History of Any Multi-Drug Resistant Organisms: None Reported Past Surgical History: Bariatric Surgery, Section, Hysterectomy, Tonsillectomy Additional Past Surgical History / Comment(s): gastric bypass in 2002, recurrent paracentesis,colonoscopy, egd w/apc/variceal banding/bx Past Anesthesia/Blood Transfusion Reactions: No Reported Reaction Additional Past Anesthesia/Blood Transfusion Reaction / Comm: blood transfusions Smoking Status: Current every day smoker - Past Family History Mother History Unknown: Yes Family Medical History: Congestive Heart Failure (CHF), COPD Father History Unknown: Yes Family Medical History: Diabetes Mellitus Medications and Allergies Home Medications Medication Instructions Recorded Confirmed Type ALPRAZolam [Xanax] 0.5 mg PO DAILY PRN #10 tab 09/05/18 10/09/18 Rx Ferrous Sulfate [Feosol] 325 mg PO BID #60 tab 09/05/18 10/09/18 Rx Gabapentin [Neurontin] 100 mg PO TID #90 cap 09/05/18 10/09/18 Rx Midodrine [ProAmatine] 10 mg PO AC-TID #90 tab 09/05/18 10/09/18 Rx Furosemide [Lasix] 60 mg PO DAILY 10/09/18 10/09/18 History Sodium Bicarbonate Tab 650 mg PO BID 10/09/18 10/09/18 History Spironolactone [Aldactone] 50 mg PO TID 10/09/18 10/09/18 History Allergies Allergy/AdvReac Type Severity Reaction Status Date / Time adhesive tape Allergy Rash/Hives Verified 10/09/18 14:35 Physical Exam Vitals: Vital Signs Temp Pulse Resp BP BP Pulse Ox 10/15/18 11:08 15 10/15/18 08:00 98.7 F 76 15 95 10/15/18 04:00 98.6 F 75 15 103/52 96 10/15/18 00:00 98.5 F 70 16 95/59 95 10/14/18 20:00 98.6 F 65 16 115/62 96 10/14/18 17:36 115/72 10/14/18 16:00 71 15 139/83 100 10/14/18 14:00 66 14 120/62 Intake and Output 10/14/18 10/15/18 10/15/18 22:59 06:59 14:59 Intake Total 1194 Output Total 573 227 Balance 621 -227 Intake: Oral 1194 Output: Urine 573 227 Other: Voiding Method Indwelling Catheter Indwelling Catheter Indwelling Catheter Weight 118.6 kg 118.6 kg Skin: Good color, texture, turgor. General: Obese build and comfortable appearance. Head: Normocephalic, atraumatic. Eyes: Symmetric. Pupils equal round. Ears: Symmetric. Hearing within normal limits. Mouth: Clear. Neck: Supple. Carotid without bruit. Cardiac: Regular rate and rhythm. Lungs: Clear anteriorly and posteriorly. Abdomen: Soft active nontender. Extremities: Normal tone. Neurological: Mental status: Alert, cooperative, pleasant. Cranial nerves: Symmetric facial tone and trapezius. Motor: Normal strength and isolation all 4 limbs. Reports current out of bed today. Sensation: Intact throughout. DTRs: Symmetric and equal throughout. Mobility: Sits with assistance. Results CBC & Chem 7: 10/15/18 04:25 10/15/18 04:25 Labs: Abnormal Lab Results - Last 24 Hours (Table) 10/15/18 10/15/18 10/15/18 Range/Units 04:25 04:25 04:25 RBC 3.16 L (3.80-5.40) m/uL Hgb 8.5 L (11.4-16.0) gm/dL Hct 26.8 L (34.0-46.0) % RDW 17.3 H (11.5-15.5) % Plt Count 116 L (150-450) k/uL PT 14.6 H (9.0-12.0) sec INR 1.4 H (<1.2) Sodium 124 L (137-145) mmol/L Chloride 95 L (98-107) mmol/L BUN 41 H (7-17) mg/dL Glucose 115 H (74-99) mg/dL Osmolality (280-301) mosm/kg Calcium 7.5 L (8.4-10.2) mg/dL Phosphorus 2.3 L (2.5-4.5) mg/dL Total Bilirubin 1.5 H (0.2-1.3) mg/dL AST 59 H (14-36) U/L Alkaline Phosphatase 180 H (38-126) U/L Total Protein 4.7 L (6.3-8.2) g/dL Albumin 2.0 L (3.5-5.0) g/dL 10/15/18 Range/Units 04:25 RBC (3.80-5.40) m/uL Hgb (11.4-16.0) gm/dL Hct (34.0-46.0) % RDW (11.5-15.5) % Plt Count (150-450) k/uL PT (9.0-12.0) sec INR (<1.2) Sodium (137-145) mmol/L Chloride (98-107) mmol/L BUN (7-17) mg/dL Glucose (74-99) mg/dL Osmolality 270 L (280-301) mosm/kg Calcium (8.4-10.2) mg/dL Phosphorus (2.5-4.5) mg/dL Total Bilirubin (0.2-1.3) mg/dL AST (14-36) U/L Alkaline Phosphatase (38-126) U/L Total Protein (6.3-8.2) g/dL Albumin (3.5-5.0) g/dL Microbiology - Last 24 Hours (Table) 10/10/18 00:38 Blood Culture - Preliminary Blood No Growth after 120 hours 10/12/18 16:35 Gram Stain - Preliminary Ascites Fluid Body Fluid Culture - Preliminary Assessment and Plan (1) Hepatic encephalopathy Current Visit: Yes Status: Acute Code(s): K72.90 - HEPATIC FAILURE, UNSPECIFIED WITHOUT COMA SNOMED Code(s): 75843515 (2) Severe sepsis Current Visit: Yes Status: Acute Code(s): A41.9 - SEPSIS, UNSPECIFIED ORGANISM; R65.20 - SEVERE SEPSIS WITHOUT SEPTIC SHOCK SNOMED Code(s): 71838258 Plan: Impression: 1. Medical debility. 2. Alcoholic liver disease with associated encephalopathy. 3. Acute kidney injury. 4. UTI with sepsis. Comments and plan: PT and OT ordered. Follow therapies with yourself. Note poor ability participate last week. I anticipate this will be much better and as patient appears to be turning the corner.
--- NOTE | 2018-10-15 23:21 | P.PN ---
Subjective Progress Note Date: 10/15/18 Patient is more alert today. She has no specific complaints her appetite is slightly improved.. Currently her kidneys shown improvement she remains in the ICU on full supportive care. She continues to improve slowly but is very weak she may need inpatient rehabilitation. Objective - Vital Signs Vital signs: Vital Signs Temp 98.2 F 10/15/18 20:00 Pulse 68 10/15/18 20:00 Resp 14 10/15/18 20:00 BP 105/65 10/15/18 20:00 Pulse Ox 98 10/15/18 20:00 Intake & Output 10/15/18 10/15/18 10/16/18 06:59 18:59 06:59 Intake Total 1194 1140 Output Total 675 725 Balance 519 415 Weight 118.6 kg 118.6 kg Intake: Intake, IV Titration 300 Amount Potassium Phosphate 10 250 mmol In Sodium Chloride 0 .9% 250 ml @ 125 mls/hr IV ONCE ONE Rx#:[id number] cefTRIAXone 1,000 mg In 50 Sodium Chloride 0.9% 50 ml @ 100 mls/hr IVPB Q24HR [facility] Rx#:[id number] Oral 1194 840 Output: Urine 675 725 Other: Voiding Method Indwelling Catheter Indwelling Catheter # Bowel Movements 1,000 - Exam Vital signs are stable. General: The patient appeared well nourished and normally developed. HEENT: Head exam is unremarkable. Neck is without jugular venous distension. NG tube noted. LUNGS: Lungs are clear to auscultation and percussion. Breath sounds decreased. HEART: Rate and Rhythm are regular. First and second heart sounds normal. No murmurs, rubs or gallops. ABDOMEN: Abdominal exam reveals normal bowel sounds. Abdominal distention is noted with evidence of ascites Nontender. EXTREMITITES: No clubbing, cyanosis, +2 edema. - Labs CBC & Chem 7: 10/15/18 04:25 10/15/18 04:25 Labs: Abnormal Lab Results - Last 24 Hours (Table) 10/15/18 10/15/18 10/15/18 Range/Units 04:25 04:25 04:25 RBC 3.16 L (3.80-5.40) m/uL Hgb 8.5 L (11.4-16.0) gm/dL Hct 26.8 L (34.0-46.0) % RDW 17.3 H (11.5-15.5) % Plt Count 116 L (150-450) k/uL PT 14.6 H (9.0-12.0) sec INR 1.4 H (<1.2) Sodium 124 L (137-145) mmol/L Chloride 95 L (98-107) mmol/L BUN 41 H (7-17) mg/dL Glucose 115 H (74-99) mg/dL Osmolality (280-301) mosm/kg Calcium 7.5 L (8.4-10.2) mg/dL Phosphorus 2.3 L (2.5-4.5) mg/dL Total Bilirubin 1.5 H (0.2-1.3) mg/dL AST 59 H (14-36) U/L Alkaline Phosphatase 180 H (38-126) U/L Total Protein 4.7 L (6.3-8.2) g/dL Albumin 2.0 L (3.5-5.0) g/dL 10/15/18 Range/Units 04:25 RBC (3.80-5.40) m/uL Hgb (11.4-16.0) gm/dL Hct (34.0-46.0) % RDW (11.5-15.5) % Plt Count (150-450) k/uL PT (9.0-12.0) sec INR (<1.2) Sodium (137-145) mmol/L Chloride (98-107) mmol/L BUN (7-17) mg/dL Glucose (74-99) mg/dL Osmolality 270 L (280-301) mosm/kg Calcium (8.4-10.2) mg/dL Phosphorus (2.5-4.5) mg/dL Total Bilirubin (0.2-1.3) mg/dL AST (14-36) U/L Alkaline Phosphatase (38-126) U/L Total Protein (6.3-8.2) g/dL Albumin (3.5-5.0) g/dL Microbiology - Last 24 Hours (Table) 10/12/18 16:35 Gram Stain - Preliminary Ascites Fluid Body Fluid Culture - Preliminary 10/10/18 00:38 Blood Culture - Preliminary Blood No Growth after 120 hours Assessment and Plan Assessment: Acute sepsis requiring pressors Hyperkalemia Altered mental status Urinary tract infection Chronic liver disease cirrhosis Metabolic encephalopathy acute Anemia multifactorial Acute kidney injury. Hypovolemia with hypovolemic shock Plan: Plan continued intensive care for intensive care support patient is slowly improving however his condition is very guarded because of multiple comorbidities We'll continue to monitor patient ICU course. infectious disease and intensive care consultation and progress request consultation by physical medicine rehabilitation. Time with Patient: Greater than 30
--- NOTE | 2018-10-15 23:26 | P.PN ---
Subjective Progress Note Date: 10/15/18 Principal diagnosis: Decompensated cirrhosis with ascites, encephalopathy Patient lying in bed, reporting feeling better. No nausea or vomiting. Tolerating diet. Objective - Vital Signs Vital signs: Vital Signs Temp 98.2 F 10/15/18 20:00 Pulse 68 10/15/18 20:00 Resp 14 10/15/18 20:00 BP 105/65 10/15/18 20:00 Pulse Ox 98 10/15/18 20:00 Intake & Output 10/15/18 10/15/18 10/16/18 06:59 18:59 06:59 Intake Total 1194 1140 Output Total 675 725 Balance 519 415 Weight 118.6 kg 118.6 kg Intake: Intake, IV Titration 300 Amount Potassium Phosphate 10 250 mmol In Sodium Chloride 0 .9% 250 ml @ 125 mls/hr IV ONCE ONE Rx#:[id number] cefTRIAXone 1,000 mg In 50 Sodium Chloride 0.9% 50 ml @ 100 mls/hr IVPB Q24HR [facility] Rx#:[id number] Oral 1194 840 Output: Urine 675 725 Other: Voiding Method Indwelling Catheter Indwelling Catheter # Bowel Movements 1,000 - Exam On physical examination, patient appears comfortable in no apparent distress. HEAD: Normocephalic, atraumatic. EYES: Mild scleral icterus. No conjunctival injection. MOUTH: No lesions, tongue midline. NECK: Trachea midline, no gross abnormalities. CHEST: Decreased air entry in all lung sargent. ABDOMEN: Soft, mildly distended with positive fluid wave. Rectal tube in place. Bowel sounds are positive. No organomegaly. No guarding or rigidity. EXTREMITIES: Minimal bilateral pedal edema. SKIN: No rashes, mild jaundice. NEUROLOGIC: Alert and oriented x3. No asterixis noted. - Labs CBC & Chem 7: 10/15/18 04:25 10/15/18 04:25 Labs: Abnormal Lab Results - Last 24 Hours (Table) 10/15/18 10/15/18 10/15/18 Range/Units 04:25 04:25 04:25 RBC 3.16 L (3.80-5.40) m/uL Hgb 8.5 L (11.4-16.0) gm/dL Hct 26.8 L (34.0-46.0) % RDW 17.3 H (11.5-15.5) % Plt Count 116 L (150-450) k/uL PT 14.6 H (9.0-12.0) sec INR 1.4 H (<1.2) Sodium 124 L (137-145) mmol/L Chloride 95 L (98-107) mmol/L BUN 41 H (7-17) mg/dL Glucose 115 H (74-99) mg/dL Osmolality (280-301) mosm/kg Calcium 7.5 L (8.4-10.2) mg/dL Phosphorus 2.3 L (2.5-4.5) mg/dL Total Bilirubin 1.5 H (0.2-1.3) mg/dL AST 59 H (14-36) U/L Alkaline Phosphatase 180 H (38-126) U/L Total Protein 4.7 L (6.3-8.2) g/dL Albumin 2.0 L (3.5-5.0) g/dL 10/15/18 Range/Units 04:25 RBC (3.80-5.40) m/uL Hgb (11.4-16.0) gm/dL Hct (34.0-46.0) % RDW (11.5-15.5) % Plt Count (150-450) k/uL PT (9.0-12.0) sec INR (<1.2) Sodium (137-145) mmol/L Chloride (98-107) mmol/L BUN (7-17) mg/dL Glucose (74-99) mg/dL Osmolality 270 L (280-301) mosm/kg Calcium (8.4-10.2) mg/dL Phosphorus (2.5-4.5) mg/dL Total Bilirubin (0.2-1.3) mg/dL AST (14-36) U/L Alkaline Phosphatase (38-126) U/L Total Protein (6.3-8.2) g/dL Albumin (3.5-5.0) g/dL Microbiology - Last 24 Hours (Table) 10/12/18 16:35 Gram Stain - Preliminary Ascites Fluid Body Fluid Culture - Preliminary 10/10/18 00:38 Blood Culture - Preliminary Blood No Growth after 120 hours Assessment and Plan (1) Cirrhosis Narrative/Plan: Decompensated liver cirrhosis with ascites. Patient is a known cirrhotic who is followed in the outpatient setting and presented with altered mental status, likely multifactorial in the setting of hepatic encephalopathy and underlying urinary tract infection. Current Visit: No Status: Acute Code(s): K74.60 - UNSPECIFIED CIRRHOSIS OF LIVER SNOMED Code(s): 23413826 (2) Altered mental status Narrative/Plan: Likely multifactorial in the setting of known history of hepatic encephalopathy and presentation with urinary tract infection. Current Visit: Yes Status: Acute Code(s): R41.82 - ALTERED MENTAL STATUS, UNSPECIFIED SNOMED Code(s): 244930967 (3) Hepatic encephalopathy Current Visit: Yes Status: Acute Code(s): K72.90 - HEPATIC FAILURE, UNSPECIFIED WITHOUT COMA SNOMED Code(s): 90453967 Plan: Supportive care Okay for low sodium diet Continue to monitor liver enzymes Patient has undergone large volume paracentesis with 10 L removed on 10/12/2017 Patient on home diuretic therapy, however currently being held in the setting of acute kidney injury on presentation, appreciate recommendations from nephrology service, patient did receive Lasix therapy today Continue lactulose therapy Thank you for allowing us to participate in the care of the patient we will continue to follow
[2018-10-16] MEDS: LACTULOSE 20 GM/30 ML CUP PO SCH ×3 (01:24→21:16)
[2018-10-16] MEDS: CALCIUM ACETATE 667 MG CAP PO SCH (01:25)
[2018-10-16] MEDS: SODIUM BICARBONATE TAB 650 MG TAB PO SCH (01:25)
[2018-10-16 06:25] LABS: Anisocytosis Slight; Basophils % (A) 0 %; Eosinophils # (A) 0.2 k/uL (0-0.7); Eosinophils % (A) 3 %; HCT 27.3 % (34.0-46.0); HGB 8.8 gm/dL (11.4-16.0); Hypochromasia Slight; Lymphocytes # (A) 0.8 k/uL (1.0-4.8); Lymphocytes % (A) 11 %; MCH 27.1 pg (25.0-35.0); MCHC 32.1 g/dL (31.0-37.0); MCV 84.5 fL (80.0-100.0); Mean Platelet Volume 7.1; Monocytes # (A) 0.5 k/uL (0-1.0); Monocytes % (A) 6 %; Neutrophils # (A) 5.9 k/uL (1.3-7.7); Neutrophils % (A) 78 %; Platelet Count 140 k/uL (150-450); RBC 3.23 m/uL (3.80-5.40); RDW 17.8 % (11.5-15.5); WBC 7.6 k/uL (3.8-10.6)
[2018-10-16] MEDS: MIDODRINE 5 MG TAB PO SCH ×3 (06:28→16:35)
[2018-10-16] MEDS: LEVOTHYROXINE 25 MCG TAB PO SCH (06:28)
[2018-10-16] MEDS: PANTOPRAZOLE 40 MG TABLET PO SCH (06:28)
[2018-10-16 06:32] LABS: INR 1.2 (<1.2)
[2018-10-16 06:33] LABS: Partial Thromboplastin Time 28.8 sec (22.0-30.0); Prothrombin Time 12.8 sec (9.0-12.0)
[2018-10-16 06:35] LABS: Albumin 2.2 g/dL (3.5-5.0); Calcium 7.6 mg/dL (8.4-10.2); Magnesium 2.3 mg/dL (1.6-2.3); Phosphorus 2.8 mg/dL (2.5-4.5); Potassium 3.7 mmol/L (3.5-5.1); Total Bilirubin 1.8 mg/dL (0.2-1.3)
[2018-10-16] MEDS: GABAPENTIN 100 MG CAP PO SCH ×3 (09:40→21:16)
[2018-10-16] MEDS: FERROUS SULFATE 325 MG TAB PO SCH ×2 (09:40→21:16)
[2018-10-16] MEDS ORDERED: POTASSIUM CHLORIDE ER 20 MEQ TAB.ER PO SCH (10:00)
--- NOTE | 2018-10-16 11:34 | P.PN ---
Subjective Patient is seen in follow up for acute kidney injury. Creatinine was 3.47 on admission and is down to 0.99 today. Currently off all IV fluids. Oral intake is gradually improving. Sodium level slightly better at 125. She is nonoliguric. Admits to edema in lower extremities. Vital signs are stable. General: The patient appeared well nourished and normally developed. HEENT: Head exam is unremarkable. Neck is without jugular venous distension. NG tube noted. LUNGS: Lungs are clear to auscultation and percussion. Breath sounds decreased. HEART: Rate and Rhythm are regular. First and second heart sounds normal. No murmurs, rubs or gallops. ABDOMEN: Abdominal exam reveals normal bowel sounds. Nontender. EXTREMITITES: 1+ edema. Objective - Vital Signs Vital signs: Vital Signs Temp 97.5 F L 10/16/18 08:00 Pulse 73 10/16/18 08:00 Resp 20 10/16/18 08:00 BP 115/76 10/16/18 08:00 Pulse Ox 98 10/16/18 08:00 Intake & Output 10/15/18 10/16/18 10/16/18 18:59 06:59 18:59 Intake Total 1140 600 240 Output Total 725 300 Balance 415 300 240 Weight 118.6 kg 122.6 kg Intake: Intake, IV Titration 300 0 Amount Potassium Phosphate 10 250 0 mmol In Sodium Chloride 0 .9% 250 ml @ 125 mls/hr IV ONCE ONE Rx#:[id number] cefTRIAXone 1,000 mg In 50 Sodium Chloride 0.9% 50 ml @ 100 mls/hr IVPB Q24HR [facility] Rx#:[id number] Oral 840 600 240 Output: Urine 725 300 Other: Voiding Method Indwelling Catheter Indwelling Catheter Indwelling Catheter # Voids 1 # Bowel Movements 1,000 1 - Labs CBC & Chem 7: 10/16/18 05:31 10/16/18 05:31 Labs: Abnormal Lab Results - Last 24 Hours (Table) 10/16/18 10/16/18 10/16/18 Range/Units 05:31 05:31 05:31 RBC 3.23 L (3.80-5.40) m/uL Hgb 8.8 L (11.4-16.0) gm/dL Hct 27.3 L (34.0-46.0) % RDW 17.8 H (11.5-15.5) % Plt Count 140 L (150-450) k/uL Lymphocytes # 0.8 L (1.0-4.8) k/uL PT 12.8 H (9.0-12.0) sec INR 1.2 H (<1.2) Sodium 125 L (137-145) mmol/L Chloride 95 L (98-107) mmol/L BUN 39 H (7-17) mg/dL Calcium 7.6 L (8.4-10.2) mg/dL Total Bilirubin 1.8 H (0.2-1.3) mg/dL AST 58 H (14-36) U/L Alkaline Phosphatase 192 H (38-126) U/L Total Protein 5.0 L (6.3-8.2) g/dL Albumin 2.2 L (3.5-5.0) g/dL Microbiology - Last 24 Hours (Table) 10/10/18 00:38 Blood Culture - Final Blood No Growth after 144 hours 10/12/18 16:35 Gram Stain - Preliminary Ascites Fluid Body Fluid Culture - Preliminary Assessment and Plan Plan: Assessment: 1. Acute kidney injury secondary to ATN secondary to hypotension/sepsis. Creatinine was 3.47 on admission and is 0.99 today. Baseline creatinine is near 1. 2. Hyponatremia due to poor solute intake and also hypervolemia. Ascites noted on abdominal ultrasound - status post paracentesis with 10 L removed on October 12. Urine sodium of less than 10 and urine osmolality 456 fits with hepatorenal syndrome. 3. Hyperkalemia secondary to acute kidney injury, metabolic acidosis and Aldactone. Improved with medical management. Now slightly hypokalemic. 4. Liver cirrhosis. 5. Altered mental status. Etiology is hepatic encephalopathy as well as UTI. 6. Metabolic acidosis secondary to acute kidney injury and lactic acidosis. Better. 7. Hypotension secondary to sepsis. Off vasopressors. Cortisol level normal. 8. Hyperphosphatemia secondary to acute kidney injury. Resolved. 9. Acute blood loss anemia status post blood transfusion and IV DDAVP on October 11. Hemoglobin stable. 10. Ascites scheduled for paracentesis on October 12 - 10 L removed. Plan: Start Lasix 40 mg IV twice daily. Maintain midodrine. Avoid nephrotoxins. Continue to monitor renal function and urine output. 1500 mL fluid restriction. Maintain ensure with meals.
[2018-10-16] MEDS: FUROSEMIDE 10 MG/ML 4 ML VIAL IV SCH ×2 (12:09→21:15)
--- NOTE | 2018-10-16 21:28 | P.PN ---
Subjective Progress Note Date: 10/16/18 Patient is more alert today. She has no specific complaints her appetite is slightly improved.. Currently her kidneys shown improvement she has moved from the ICU to the general medical floor where she is doing fairly well. Her improvement is so good that she thinks she will not need any rehabilitation. She is going to work hard with physical therapy today and is here as she does. If she is ambulating and taking care of her ADLs should be transferred home with home nursing. If not we'll continue to pursue inpatient rehabilitation. Objective - Vital Signs Vital signs: Vital Signs Temp 98.8 F 10/16/18 20:00 Pulse 72 10/16/18 20:00 Resp 16 10/16/18 20:00 BP 121/72 10/16/18 20:00 Pulse Ox 96 10/16/18 20:00 Intake & Output 10/16/18 10/16/18 10/17/18 06:59 18:59 06:59 Intake Total 600 1110 480 Output Total 300 550 400 Balance 300 560 80 Weight 122.6 kg Intake: Intake, IV Titration 0 Amount Potassium Phosphate 10 0 mmol In Sodium Chloride 0 .9% 250 ml @ 125 mls/hr IV ONCE ONE Rx#:[id number] Oral 600 1110 480 Output: Urine 300 550 Stool 400 Other: Voiding Method Indwelling Catheter Indwelling Catheter Indwelling Catheter # Voids 1 # Bowel Movements 1 0 - Exam Vital signs are stable. General: The patient appeared well nourished and normally developed. HEENT: Head exam is unremarkable. Neck is without jugular venous distension. NG tube noted. LUNGS: Lungs are clear to auscultation and percussion. Breath sounds decreased. HEART: Rate and Rhythm are regular. First and second heart sounds normal. No murmurs, rubs or gallops. ABDOMEN: Abdominal exam reveals normal bowel sounds. Abdominal distention is noted with evidence of ascites Nontender. EXTREMITITES: No clubbing, cyanosis, +2 edema. Rectal tube still inserted as well as Law catheter hopefully both will be removed removed later on today. - Labs CBC & Chem 7: 10/16/18 05:31 10/16/18 05:31 Labs: Abnormal Lab Results - Last 24 Hours (Table) 10/16/18 10/16/18 10/16/18 Range/Units 05:31 05:31 05:31 RBC 3.23 L (3.80-5.40) m/uL Hgb 8.8 L (11.4-16.0) gm/dL Hct 27.3 L (34.0-46.0) % RDW 17.8 H (11.5-15.5) % Plt Count 140 L (150-450) k/uL Lymphocytes # 0.8 L (1.0-4.8) k/uL PT 12.8 H (9.0-12.0) sec INR 1.2 H (<1.2) Sodium 125 L (137-145) mmol/L Chloride 95 L (98-107) mmol/L BUN 39 H (7-17) mg/dL Calcium 7.6 L (8.4-10.2) mg/dL Total Bilirubin 1.8 H (0.2-1.3) mg/dL AST 58 H (14-36) U/L Alkaline Phosphatase 192 H (38-126) U/L Total Protein 5.0 L (6.3-8.2) g/dL Albumin 2.2 L (3.5-5.0) g/dL Microbiology - Last 24 Hours (Table) 10/12/18 16:35 Gram Stain - Final Ascites Fluid Body Fluid Culture - Final 10/10/18 00:38 Blood Culture - Final Blood No Growth after 144 hours Assessment and Plan Assessment: Acute sepsis requiring pressors Hyperkalemia Altered mental status Urinary tract infection Chronic liver disease cirrhosis Metabolic encephalopathy acute Anemia multifactorial Acute kidney injury. Hypovolemia with hypovolemic shock Plan: Plan plan is to continue patient's current care she seems to be improving anticipates discharge next 24-36 hours and hopefully to home with home nursing if she does not tolerate physical therapy and possibility of inpatient rehab still remains.
[2018-10-17 06:30] LABS: Calcium 7.8 mg/dL (8.4-10.2); Magnesium 2.2 mg/dL (1.6-2.3); Phosphorus 2.8 mg/dL (2.5-4.5); Potassium 4.1 mmol/L (3.5-5.1)
[2018-10-17] MEDS: MIDODRINE 5 MG TAB PO SCH ×3 (06:58→16:27)
[2018-10-17] MEDS: LEVOTHYROXINE 25 MCG TAB PO SCH (06:58)
[2018-10-17] MEDS: PANTOPRAZOLE 40 MG TABLET PO SCH (06:58)
--- NOTE | 2018-10-17 07:22 | P.PN ---
Subjective Progress Note Date: 10/16/18 Principal diagnosis: Decompensated cirrhosis with ascites, encephalopathy Patient lying in bed, reporting feeling better. No nausea or vomiting. Tolerating diet. Reports improvement of lower extremity swelling. Objective - Vital Signs Vital signs: Vital Signs Temp 98.2 F 10/17/18 03:59 Pulse 77 10/17/18 03:59 Resp 19 10/17/18 03:59 BP 105/64 10/17/18 03:59 Pulse Ox 96 10/17/18 03:59 Intake & Output 10/16/18 10/17/18 10/17/18 18:59 06:59 18:59 Intake Total 1110 1080 Output Total 550 1850 Balance 560 -770 Weight 123 kg Intake: Oral 1110 1080 Output: Urine 550 550 Stool 1300 Other: Voiding Method Indwelling Catheter Indwelling Catheter # Bowel Movements 1 0 - Exam On physical examination, patient appears comfortable in no apparent distress. HEAD: Normocephalic, atraumatic. EYES: Mild scleral icterus. No conjunctival injection. MOUTH: No lesions, tongue midline. NECK: Trachea midline, no gross abnormalities. CHEST: Decreased air entry in all lung sargent. ABDOMEN: Soft, mildly distended with positive fluid wave. Rectal tube removed. Bowel sounds are positive. No organomegaly. No guarding or rigidity. EXTREMITIES: Minimal bilateral pedal edema. SKIN: No rashes, mild jaundice. NEUROLOGIC: Alert and oriented x3. No asterixis noted. - Labs CBC & Chem 7: 10/16/18 05:31 10/17/18 05:54 Labs: Abnormal Lab Results - Last 24 Hours (Table) 10/17/18 Range/Units 05:54 Sodium 124 L (137-145) mmol/L Carbon Dioxide 21 L (22-30) mmol/L BUN 39 H (7-17) mg/dL Creatinine 1.11 H (0.52-1.04) mg/dL Calcium 7.8 L (8.4-10.2) mg/dL Microbiology - Last 24 Hours (Table) 10/12/18 16:35 Gram Stain - Final Ascites Fluid Body Fluid Culture - Final 10/10/18 00:38 Blood Culture - Final Blood No Growth after 144 hours Assessment and Plan (1) Cirrhosis Narrative/Plan: Decompensated liver cirrhosis with ascites. Patient is a known cirrhotic who is followed in the outpatient setting and presented with altered mental status, likely multifactorial in the setting of hepatic encephalopathy and underlying urinary tract infection. Current Visit: No Status: Acute Code(s): K74.60 - UNSPECIFIED CIRRHOSIS OF LIVER SNOMED Code(s): 51310257 (2) Altered mental status Narrative/Plan: Likely multifactorial in the setting of known history of hepatic encephalopathy and presentation with urinary tract infection. Current Visit: Yes Status: Acute Code(s): R41.82 - ALTERED MENTAL STATUS, UNSPECIFIED SNOMED Code(s): 491046973 (3) Hepatic encephalopathy Current Visit: Yes Status: Acute Code(s): K72.90 - HEPATIC FAILURE, UNSPECIFIED WITHOUT COMA SNOMED Code(s): 13685890 Plan: Supportive care Okay for low sodium diet Continue to monitor liver enzymes Patient has undergone large volume paracentesis with 10 L removed on 10/12/2017 Patient on home diuretic therapy, however currently being monitored in the setting of acute kidney injury on presentation, appreciate recommendations from nephrology service 40 mg twice a day restarted by Continue lactulose therapy Thank you for allowing us to participate in the care of the patient we will continue to follow
[2018-10-17] MEDS: FUROSEMIDE 10 MG/ML 4 ML VIAL IV SCH (08:54)
[2018-10-17] MEDS: GABAPENTIN 100 MG CAP PO SCH ×3 (08:54→22:46)
[2018-10-17] MEDS: FERROUS SULFATE 325 MG TAB PO SCH ×2 (08:54→22:46)
[2018-10-17] MEDS: LACTULOSE 20 GM/30 ML CUP PO SCH ×2 (08:56→22:46)
--- NOTE | 2018-10-17 08:59 | P.PN ---
Subjective Progress Note Date: 10/17/18 Principal diagnosis: Alcohol liver cirrhosis acute kidney injury hypotension Reports increased ascites abdominal distention. No active bleeding. Yesterday Hemoglobin 8.8. Platelet 140. INR 1.2. Objective - Vital Signs Vital signs: Vital Signs Temp 98.2 F 10/17/18 03:59 Pulse 77 10/17/18 03:59 Resp 19 10/17/18 03:59 BP 105/64 10/17/18 03:59 Pulse Ox 96 10/17/18 03:59 Intake & Output 10/16/18 10/17/18 10/17/18 18:59 06:59 18:59 Intake Total 1110 1080 360 Output Total 550 1850 Balance 560 -770 360 Weight 123 kg Intake: Oral 1110 1080 360 Output: Urine 550 550 Stool 1300 Other: Voiding Method Indwelling Catheter Indwelling Catheter # Bowel Movements 1 0 - Exam General appearance: The patient is alert, oriented, in no acute distress. HET: Head is normocephalic and atraumatic. Pupils are equal and reactive. Oropharynx is clear without lesions. Neck: Supple without lymphadenopathy. Trachea midline. Heart: S1 S2. Regular rate and rhythm. Lungs: No crackles or wheezes are heard. Abdomen: Soft, moderate ascites with bowel sounds. No peritoneal signs. No palpable organomegaly or masses. Extremities: Normal skin color and turgor. No cyanosis, rash, ulceration, clubbing, or edema. Radial and pedal pulses are 2/4 bilaterally. Neurological: No focal deficits. Strength and sensation are grossly intact. - Labs CBC & Chem 7: 10/16/18 05:31 10/17/18 05:54 Labs: Abnormal Lab Results - Last 24 Hours (Table) 10/17/18 Range/Units 05:54 Sodium 124 L (137-145) mmol/L Carbon Dioxide 21 L (22-30) mmol/L BUN 39 H (7-17) mg/dL Creatinine 1.11 H (0.52-1.04) mg/dL Calcium 7.8 L (8.4-10.2) mg/dL Microbiology - Last 24 Hours (Table) 10/12/18 16:35 Gram Stain - Final Ascites Fluid Body Fluid Culture - Final Assessment and Plan (1) Altered mental status Current Visit: Yes Status: Acute Code(s): R41.82 - ALTERED MENTAL STATUS, UNSPECIFIED SNOMED Code(s): 690673962 (2) Hepatic encephalopathy Current Visit: Yes Status: Acute Code(s): K72.90 - HEPATIC FAILURE, UNSPECIFIED WITHOUT COMA SNOMED Code(s): 10343146 (3) Acute kidney injury Current Visit: No Status: Acute Code(s): N17.9 - ACUTE KIDNEY FAILURE, UNSPECIFIED SNOMED Code(s): 22679401 (4) Anemia Current Visit: No Status: Acute Code(s): D64.9 - ANEMIA, UNSPECIFIED SNOMED Code(s): 742978190 (5) Ascites Current Visit: No Status: Acute Code(s): R18.8 - OTHER ASCITES SNOMED Code (s): 526840651 (6) Cirrhosis Current Visit: No Status: Acute Code(s): K74.60 - UNSPECIFIED CIRRHOSIS OF LIVER SNOMED Code(s): 41490088 (7) Coagulopathy Current Visit: No Status: Acute Code(s): D68.9 - COAGULATION DEFECT, UNSPECIFIED SNOMED Code(s): 10154344 (8) Hypotension Current Visit: Yes Status: Acute Code(s): I95.9 - HYPOTENSION, UNSPECIFIED SNOMED Code(s): 56537263 (9) Hyponatremia Current Visit: Yes Status: Acute Code(s): E87.1 - HYPO-OSMOLALITY AND HYPONATREMIA SNOMED Code(s): 60167169 Plan: 1. Paracentesis today will give albumin 25 g preprocedure, postprocedure albumin infusion contingent on quantity of ascitic fluid removal. Low-salt diet. Assessment and plan a care discussed with Dr. Carmona
[2018-10-17] MEDS: ALBUMIN HUMAN 25% 50 ML in EMPTY BAG 1 BAG IVPB SCH ×4 (09:59→13:13)
--- NOTE | 2018-10-17 11:16 | P.PN ---
Subjective Patient is seen in follow up for acute kidney injury. Renal function improved since admission with creatinine down to 0.99 on October 16. Slightly worse today which is due to diuresis. Currently maintained on Lasix 40 mg IV twice daily. Oral intake is gradually improving. Sodium level stable at 124. She is nonoliguric. Admits to edema in lower extremities. Patient had paracentesis done this morning at 7.8 L removed. Vital signs are stable. General: The patient appeared well nourished and normally developed. HEENT: Head exam is unremarkable. Neck is without jugular venous distension. NG tube noted. LUNGS: Lungs are clear to auscultation and percussion. Breath sounds decreased. HEART: Rate and Rhythm are regular. First and second heart sounds normal. No murmurs, rubs or gallops. ABDOMEN: Abdominal exam reveals normal bowel sounds. Nontender. EXTREMITITES: 2+ edema. Objective - Vital Signs Vital signs: Vital Signs Temp 98.2 F 10/17/18 03:59 Pulse 68 10/17/18 11:06 Resp 16 10/17/18 11:06 BP 95/53 10/17/18 11:06 Pulse Ox 99 10/17/18 11:06 Intake & Output 10/16/18 10/17/18 10/17/18 18:59 06:59 18:59 Intake Total 1110 1080 360 Output Total 550 1850 Balance 560 -770 360 Weight 123 kg Intake: Oral 1110 1080 360 Output: Urine 550 550 Stool 1300 Other: Voiding Method Indwelling Catheter Indwelling Catheter Indwelling Catheter # Bowel Movements 1 0 - Labs CBC & Chem 7: 10/16/18 05:31 10/17/18 05:54 Labs: Abnormal Lab Results - Last 24 Hours (Table) 10/17/18 Range/Units 05:54 Sodium 124 L (137-145) mmol/L Carbon Dioxide 21 L (22-30) mmol/L BUN 39 H (7-17) mg/dL Creatinine 1.11 H (0.52-1.04) mg/dL Calcium 7.8 L (8.4-10.2) mg/dL Microbiology - Last 24 Hours (Table) 10/12/18 16:35 Gram Stain - Final Ascites Fluid Body Fluid Culture - Final Assessment and Plan Plan: Assessment: 1. Acute kidney injury secondary to ATN secondary to hypotension/sepsis. Creatinine was 3.47 on admission and did come down to 0.99 on October 16 - slightly worse today itches due to diuresis. Baseline creatinine is near 1. 2. Hyponatremia due to poor solute intake and also hypervolemia. Ascites noted on abdominal ultrasound - status post paracentesis with 10 L removed on October 12 and 7.8 L removed this morning. Urine sodium of less than 10 and urine osmolality 456 fits with hepatorenal syndrome. 3. Hyperkalemia secondary to acute kidney injury, metabolic acidosis and Aldactone. Resolved. 4. Liver cirrhosis. 5. Altered mental status. Etiology is hepatic encephalopathy as well as UTI. Better. 6. Metabolic acidosis secondary to acute kidney injury and lactic acidosis. 7. Hypotension secondary to sepsis. Off vasopressors. Cortisol level normal. Stable. 8. Hyperphosphatemia secondary to acute kidney injury. Resolved. 9. Acute blood loss anemia status post blood transfusion and IV DDAVP on October 11. Hemoglobin stable. 10. Ascites status post paracentesis on October 12 at 10 L removed and again this morning was 7.8 L removed. 11. Volume overload. Plan: Patient received 25 g of albumin prior to the paracentesis. I will give her an additional 25 g now. Start Lasix drip at 10 mL an hour. Maintain midodrine. Avoid nephrotoxins. Continue to monitor renal function and urine output. 1500 mL fluid restriction. Maintain ensure with meals. Repeat electrolytes in the morning.
[2018-10-17] MEDS: FUROSEMIDE 250 MG in SODIUM CHLORIDE 0.9% 225 ML IVP SCH (13:33)
--- NOTE | 2018-10-17 13:43 | US ---
EXAMINATION TYPE: US paracentesis abd w/image DATE OF EXAM: 10/17/2018 COMPARISON: NONE HISTORY: Ascites. PROCEDURE: Maximal barrier technique was utilized. The skin overlying a suitable pocket of fluid was localized with ultrasound and the overlying skin was prepped and draped. Ultrasound was utilized with sterile technique. Lidocaine was used for local anesthesia and a skin angelo made with a scalpel. Catheter was advanced under direct ultrasound guidance into a suitable pocket of fluid and approximately 7.8 liter s of serous fluid were removed. Catheter was withdrawn and hemostasis achieved. There is no immedia te complication; the patient is discharged in stable condition. IMPRESSION: STATUS POST ULTRASOUND GUIDED PARACENTESIS FOR PALLIATION OF ASCITES. THIS PROCEDURE WA S PERFORMED BY THE UNDERSIGNED.
[2018-10-17 21:55] LABS: Glucose,Whole Blood 100 mg/dL (75-99)
--- NOTE | 2018-10-17 22:52 | P.PN ---
Subjective Progress Note Date: 10/17/18 Patient is more alert today. She has no specific complaints her appetite is slightly improved.. Currently her kidneys shown improvement she has moved from the ICU to the general medical floor where she is doing fairly well. She is going to work hard with physical therapy today and is here as she does. If she is ambulating and taking care of her ADLs should be transferred home with home nursing. If not we'll continue to pursue inpatient rehabilitation. Complains of increased abdominal distention from ascites fluid she normally gets paracentesis weekly approximately 10 L taken at one time Objective - Vital Signs Vital signs: Vital Signs Temp 98.2 F 10/17/18 11:42 Pulse 79 10/17/18 15:11 Resp 17 10/17/18 16:00 BP 93/43 10/17/18 19:05 Pulse Ox 99 10/17/18 16:00 Intake & Output 10/17/18 10/17/18 10/18/18 06:59 18:59 06:59 Intake Total 1080 740 Output Total 1850 8400 500 Balance -770 -7660 -500 Weight 123 kg Intake: IV 20 Invasive Line 5 20 Oral 1080 720 Output: Urine 550 500 Uretheral (Law) 500 Stool 1300 600 Other 7800 Other: Voiding Method Indwelling Catheter Indwelling Catheter # Bowel Movements 0 1 - Exam Vital signs are stable. General: The patient appeared well nourished and normally developed. HEENT: Head exam is unremarkable. Neck is without jugular venous distension. NG tube noted. LUNGS: Lungs are clear to auscultation and percussion. Breath sounds decreased. HEART: Rate and Rhythm are regular. First and second heart sounds normal. No murmurs, rubs or gallops. ABDOMEN: Abdominal exam reveals normal bowel sounds. Abdominal distention is noted with evidence of ascites .Nontender. EXTREMITITES: No clubbing, cyanosis, +2 edema. Rectal tube still inserted as well as Law catheter hopefully both will be removed removed later on today. - Labs CBC & Chem 7: 10/16/18 05:31 10/17/18 05:54 Labs: Abnormal Lab Results - Last 24 Hours (Table) 10/17/18 10/17/18 Range/Units 05:54 21:37 Sodium 124 L (137-145) mmol/L Carbon Dioxide 21 L (22-30) mmol/L BUN 39 H (7-17) mg/dL Creatinine 1.11 H (0.52-1.04) mg/dL POC Glucose (mg/dL) 100 H (75-99) mg/dL Calcium 7.8 L (8.4-10.2) mg/dL Assessment and Plan Assessment: Acute sepsis requiring pressors Hyperkalemia Altered mental status Urinary tract infection Chronic liver disease cirrhosis Metabolic encephalopathy acute Anemia multifactorial Acute kidney injury. Hypovolemia with hypovolemic shock Hypothyroidism. Plan: Plan plan is to continue patient's current care she seems to be improving anticipates discharge next 24-36 hours and hopefully to home with home nursing if she does not tolerate physical therapy and possibility of inpatient rehab still remains. She is refusing inpatient rehab at this current time she wishes to go home.
[2018-10-18 05:59] LABS: Glucose,Whole Blood 89 mg/dL (75-99)
[2018-10-18] MEDS: FUROSEMIDE 250 MG in SODIUM CHLORIDE 0.9% 225 ML IVP SCH (06:48)
[2018-10-18] MEDS: MIDODRINE 5 MG TAB PO SCH ×3 (06:49→16:56)
[2018-10-18] MEDS: PANTOPRAZOLE 40 MG TABLET PO SCH (06:49)
[2018-10-18] MEDS: LEVOTHYROXINE 25 MCG TAB PO SCH (06:49)
[2018-10-18 07:34] LABS: Calcium 7.7 mg/dL (8.4-10.2); Magnesium 2.1 mg/dL (1.6-2.3); Phosphorus 2.8 mg/dL (2.5-4.5)
[2018-10-18 08:01] LABS: Potassium 3.8 mmol/L (3.5-5.1)
[2018-10-18] MEDS: LACTULOSE 20 GM/30 ML CUP PO SCH ×2 (09:15→20:51)
[2018-10-18] MEDS: GABAPENTIN 100 MG CAP PO SCH ×3 (09:16→20:48)
[2018-10-18] MEDS: FERROUS SULFATE 325 MG TAB PO SCH ×2 (09:16→20:48)
--- NOTE | 2018-10-18 10:35 | P.PN ---
Subjective Patient is seen in follow up for acute kidney injury. Renal function improved since admission with creatinine down to 0.99 on October 16. Renal function stable today with creatinine at 1.09. Currently maintained on Lasix drip at 10 mL an hour. Edema is improved. Oral intake is gradually improving. Sodium level improved to 127. She is nonoliguric. Patient had paracentesis done on October 17 with 7.8 L removed. Vital signs are stable. General: The patient appeared well nourished and normally developed. HEENT: Head exam is unremarkable. Neck is without jugular venous distension. NG tube noted. LUNGS: Lungs are clear to auscultation and percussion. Breath sounds decreased. HEART: Rate and Rhythm are regular. First and second heart sounds normal. No murmurs, rubs or gallops. ABDOMEN: Abdominal exam reveals normal bowel sounds. Nontender. EXTREMITITES: 1+ edema. Objective - Vital Signs Vital signs: Vital Signs Temp 98.0 F 10/18/18 08:00 Pulse 85 10/18/18 08:00 Resp 17 10/18/18 08:00 BP 103/66 10/18/18 08:00 Pulse Ox 98 10/18/18 08:00 Intake & Output 10/17/18 10/18/18 10/18/18 18:59 06:59 18:59 Intake Total 740 1152.5 250 Output Total 8400 2600 200 Balance -7660 -1447.5 50 Weight 116.5 kg Intake: IV 20 30 10 Invasive Line 5 20 30 10 Intake, IV Titration 282.5 Amount Furosemide 250 mg In 282.5 Sodium Chloride 0.9% 225 ml @ 10 MG/HR 10 mls/hr IVP .Q24H [facility] Rx#: [id number] Oral 720 840 240 Output: Urine 1100 200 Uretheral (Law) 500 200 Stool 600 1500 Other 7800 Other: Voiding Method Indwelling Catheter Indwelling Catheter Indwelling Catheter # Bowel Movements 1 1 - Labs CBC & Chem 7: 10/16/18 05:31 10/18/18 06:51 Labs: Abnormal Lab Results - Last 24 Hours (Table) 10/17/18 10/18/18 Range/Units 21:37 06:51 Sodium 127 L (137-145) mmol/L BUN 41 H (7-17) mg/dL Creatinine 1.09 H (0.52-1.04) mg/dL POC Glucose (mg/dL) 100 H (75-99) mg/dL Calcium 7.7 L (8.4-10.2) mg/dL Assessment and Plan Plan: Assessment: 1. Acute kidney injury secondary to ATN secondary to hypotension/sepsis. Creatinine was 3.47 on admission and did come down to 0.99 on October 16 - 1.09 today. Baseline creatinine is near 1. 2. Hyponatremia due to poor solute intake and also hypervolemia. Ascites noted on abdominal ultrasound - status post paracentesis with 10 L removed on October 12 and 7.8 L removed October 17. Urine sodium of less than 10 and urine osmolality 456 fits with hepatorenal syndrome. Sodium level at 127 today. 3. Hyperkalemia secondary to acute kidney injury, metabolic acidosis and Aldactone. Resolved. 4. Liver cirrhosis. 5. Altered mental status. Etiology is hepatic encephalopathy as well as UTI. Better. 6. Metabolic acidosis secondary to acute kidney injury and lactic acidosis. 7. Hypotension secondary to sepsis. Off vasopressors. Cortisol level normal. Stable. 8. Hyperphosphatemia secondary to acute kidney injury. Resolved. 9. Acute blood loss anemia status post blood transfusion and IV DDAVP on October 11. Hemoglobin stable. 10. Ascites status post paracentesis on October 12 at 10 L removed and again October 17 with 7.8 L removed. 11. Volume overload. Improving with diuresis. Plan: Continue Lasix drip at 10 mL an hour. Maintain midodrine. Avoid nephrotoxins. Continue to monitor renal function and urine output. 1500 mL fluid restriction. Maintain ensure with meals. Repeat electrolytes in the morning.
[2018-10-18 11:58] LABS: Glucose,Whole Blood 106 mg/dL (75-99)
[2018-10-18 17:29] LABS: Glucose,Whole Blood 120 mg/dL (75-99)
[2018-10-18 20:58] LABS: Glucose,Whole Blood 94 mg/dL (75-99)
--- NOTE | 2018-10-18 21:01 | P.PN ---
Subjective Progress Note Date: 10/18/18 Patient is doing slightly better today she states that she walked the halls yesterday and she has been up in a chair. Her appetite has improved. She still has a Law catheter in her rectal tube has been removed. And she is currently on a Lasix drip to maintain edema. She denies any chest pain she is really pushing to go home within the next 24-48 hours. Objective - Vital Signs Vital signs: Vital Signs Temp 98.2 F 10/18/18 11:38 Pulse 60 10/18/18 15:50 Resp 17 10/18/18 15:50 BP 82/48 10/18/18 15:50 Pulse Ox 99 10/18/18 15:50 Intake & Output 10/18/18 10/18/18 10/19/18 06:59 18:59 06:59 Intake Total 1152.5 1060 Output Total 2600 1200 Balance -1447.5 -140 Weight 116.5 kg Intake: IV 30 10 Invasive Line 5 30 10 Intake, IV Titration 282.5 Amount Furosemide 250 mg In 282.5 Sodium Chloride 0.9% 225 ml @ 10 MG/HR 10 mls/hr IVP .Q24H [facility] Rx#: [id number] Oral 840 1050 Output: Urine 1100 200 Uretheral (Law) 500 200 Stool 1500 1000 Other: Voiding Method Indwelling Catheter Indwelling Catheter # Bowel Movements 1 - Exam Vital signs are stable. General: The patient appeared well nourished and normally developed. HEENT: Head exam is unremarkable. Neck is without jugular venous distension. NG tube noted. LUNGS: Lungs are clear to auscultation and percussion. Breath sounds decreased. HEART: Rate and Rhythm are regular. First and second heart sounds normal. No murmurs, rubs or gallops. ABDOMEN: Abdominal exam reveals normal bowel sounds. Abdominal distention is noted with evidence of ascites .Nontender. EXTREMITITES: No clubbing, cyanosis, +2 edema. Rectal tube still inserted as well as Law catheter hopefully both will be removed removed later on today. - Labs CBC & Chem 7: 10/16/18 05:31 10/18/18 06:51 Labs: Abnormal Lab Results - Last 24 Hours (Table) 10/17/18 10/18/18 10/18/18 Range/Units 21:37 06:51 11:29 Sodium 127 L (137-145) mmol/L BUN 41 H (7-17) mg/dL Creatinine 1.09 H (0.52-1.04) mg/dL POC Glucose (mg/dL) 100 H 106 H (75-99) mg/dL Calcium 7.7 L (8.4-10.2) mg/dL 10/18/18 Range/Units 16:25 Sodium (137-145) mmol/L BUN (7-17) mg/dL Creatinine (0.52-1.04) mg/dL POC Glucose (mg/dL) 120 H (75-99) mg/dL Calcium (8.4-10.2) mg/dL Assessment and Plan Assessment: Acute sepsis requiring pressors Hyperkalemia Altered mental status Urinary tract infection Chronic liver disease cirrhosis Metabolic encephalopathy acute Anemia multifactorial Acute kidney injury. Hypovolemia with hypovolemic shock Hypothyroidism. Plan: Plan plan is to continue patient's current care she seems to be improving anticipates discharge next 24-36. She is refusing inpatient rehab at this current time she wishes to go home. To continue to follow patient's progress DVT prophylaxis condition continued to monitor electrolytes
[2018-10-19] MEDS: FUROSEMIDE 250 MG in SODIUM CHLORIDE 0.9% 225 ML IVP SCH (03:12)
[2018-10-19 05:39] LABS: Glucose,Whole Blood 96 mg/dL (75-99)
[2018-10-19] MEDS: PANTOPRAZOLE 40 MG TABLET PO SCH (06:28)
[2018-10-19] MEDS: MIDODRINE 5 MG TAB PO SCH ×3 (06:28→16:45)
[2018-10-19] MEDS: LEVOTHYROXINE 25 MCG TAB PO SCH (06:28)
[2018-10-19 07:32] LABS: Calcium 7.7 mg/dL (8.4-10.2); Magnesium 1.8 mg/dL (1.6-2.3); Potassium 3.5 mmol/L (3.5-5.1)
[2018-10-19 07:46] LABS: Anisocytosis Slight; Basophils % (A) 0 %; Eosinophils # (A) 0.2 k/uL (0-0.7); Eosinophils % (A) 2 %; HCT 23.5 % (34.0-46.0); HGB 7.8 gm/dL (11.4-16.0); Hypochromasia Slight; Lymphocytes # (A) 1.1 k/uL (1.0-4.8); Lymphocytes % (A) 16 %; MCH 28.7 pg (25.0-35.0); MCHC 33.3 g/dL (31.0-37.0); MCV 86.3 fL (80.0-100.0); Mean Platelet Volume 6.5; Monocytes # (A) 0.5 k/uL (0-1.0); Monocytes % (A) 7 %; Neutrophils # (A) 4.9 k/uL (1.3-7.7); Neutrophils % (A) 72 %; Platelet Count 173 k/uL (150-450); RBC 2.72 m/uL (3.80-5.40); RDW 19.1 % (11.5-15.5); WBC 6.8 k/uL (3.8-10.6)
[2018-10-19] MEDS: GABAPENTIN 100 MG CAP PO SCH ×3 (08:47→21:08)
[2018-10-19] MEDS: FERROUS SULFATE 325 MG TAB PO SCH ×2 (08:47→21:08)
[2018-10-19] MEDS: LACTULOSE 20 GM/30 ML CUP PO SCH ×2 (08:47→21:09)
[2018-10-19] MEDS ORDERED: POTASSIUM CHLORIDE ER 20 MEQ TAB.ER PO STA (09:05)
--- NOTE | 2018-10-19 09:06 | P.PN ---
Subjective Patient is seen in follow up for acute kidney injury. Renal function improved since admission. Currently maintained on Lasix drip at 10 mL an hour. Edema is improved. Oral intake is gradually improving. Sodium level stable at 127. She is nonoliguric. Patient had paracentesis done on October 17 with 7.8 L removed. Vital signs are stable. General: The patient appeared well nourished and normally developed. HEENT: Head exam is unremarkable. Neck is without jugular venous distension. NG tube noted. LUNGS: Lungs are clear to auscultation and percussion. Breath sounds decreased. HEART: Rate and Rhythm are regular. First and second heart sounds normal. No murmurs, rubs or gallops. ABDOMEN: Abdominal exam reveals normal bowel sounds. Nontender. EXTREMITITES: 1+ edema. Objective - Vital Signs Vital signs: Vital Signs Temp 98.4 F 10/19/18 03:34 Pulse 65 10/19/18 03:36 Resp 18 10/19/18 03:36 BP 106/62 10/19/18 03:34 Pulse Ox 95 10/19/18 03:34 Intake & Output 10/18/18 10/19/18 10/19/18 18:59 06:59 18:59 Intake Total 1060 1524 240 Output Total 1200 1100 Balance -140 424 240 Weight 116.1 kg Intake: IV 10 220 Invasive Line 5 10 Sodium Chloride 0.9% 1, 220 000 ml @ 20 mls/hr IV . Q24H [facility] Rx#:[id number] Intake, IV Titration 204 Amount Furosemide 250 mg In 204 Sodium Chloride 0.9% 225 ml @ 10 MG/HR 10 mls/hr IVP .Q24H [facility] Rx#: [id number] Oral 1050 1100 240 Output: Urine 200 1100 Uretheral (Law) 200 Stool 1000 Other: Voiding Method Indwelling Catheter Indwelling Catheter # Bowel Movements 1 - Labs CBC & Chem 7: 10/19/18 06:53 10/19/18 06:53 Labs: Abnormal Lab Results - Last 24 Hours (Table) 10/18/18 10/18/18 10/19/18 Range/Units 11:29 16:25 06:53 RBC (3.80-5.40) m/uL Hgb (11.4-16.0) gm/dL Hct (34.0-46.0) % RDW (11.5-15.5) % Sodium 127 L (137-145) mmol/L Carbon Dioxide 21 L (22-30) mmol/L BUN 36 H (7-17) mg/dL POC Glucose (mg/dL) 106 H 120 H (75-99) mg/dL Calcium 7.7 L (8.4-10.2) mg/dL 10/19/18 Range/Units 06:53 RBC 2.72 L (3.80-5.40) m/uL Hgb 7.8 L (11.4-16.0) gm/dL Hct 23.5 L (34.0-46.0) % RDW 19.1 H (11.5-15.5) % Sodium (137-145) mmol/L Carbon Dioxide (22-30) mmol/L BUN (7-17) mg/dL POC Glucose (mg/dL) (75-99) mg/dL Calcium (8.4-10.2) mg/dL Assessment and Plan Plan: Assessment: 1. Acute kidney injury secondary to ATN secondary to hypotension/sepsis. Creatinine was 3.47 on admission. GFR now back to baseline. 2. Hyponatremia due to poor solute intake and also hypervolemia. Ascites noted on abdominal ultrasound - status post paracentesis with 10 L removed on October 12 and 7.8 L removed October 17. Urine sodium of less than 10 and urine osmolality 456 fits with hepatorenal syndrome. Sodium level stable at 127 today. 3. Hyperkalemia secondary to acute kidney injury, metabolic acidosis and Aldactone. Resolved. 4. Liver cirrhosis. 5. Altered mental status. Etiology is hepatic encephalopathy as well as UTI. Better. 6. Metabolic acidosis secondary to acute kidney injury and lactic acidosis. 7. Hypotension secondary to sepsis. Off vasopressors. Cortisol level normal. Stable. 8. Hyperphosphatemia secondary to acute kidney injury. Resolved. 9. Acute blood loss anemia status post blood transfusion and IV DDAVP on October 11. Hemoglobin 7.8 today. 10. Ascites status post paracentesis on October 12 at 10 L removed and again October 17 with 7.8 L removed. 11. Volume overload. Improving with diuresis. Plan: Discontinue Lasix drip. Start Lasix 40 mg IV 3 times daily. Replace potassium. 40 mEq today. Add Aldactone 25 mg once daily. Maintain midodrine. Avoid nephrotoxins. Continue to monitor renal function and urine output. 1500 mL fluid restriction. Maintain ensure with meals. Repeat electrolytes in the morning.
[2018-10-19] MEDS: SPIRONOLACTONE 25 MG TAB PO SCH (10:12)
[2018-10-19] MEDS: FUROSEMIDE 10 MG/ML 4 ML VIAL IV SCH ×3 (10:12→23:20)
[2018-10-19 11:34] LABS: Glucose,Whole Blood 100 mg/dL (75-99)
[2018-10-19 16:21] LABS: Glucose,Whole Blood 101 mg/dL (75-99)
--- NOTE | 2018-10-19 16:22 | P.PN ---
Subjective Progress Note Date: 10/19/18 Assessment 48-year-old seen today on 10/19/2018 was doing much better she still on Lasix drip however and still with Law catheter. She is agreeable to rehab which will be arranged at [facility]. She is okay from a family practice standpoint medicine standpoint to be discharged as soon as cleared by nephrology which could happen as soon as Monday morning. Objective - Vital Signs Vital signs: Vital Signs Temp 98.0 F 10/19/18 12:42 Pulse 77 10/19/18 12:44 Resp 20 10/19/18 12:44 BP 95/58 10/19/18 12:42 Pulse Ox 100 10/19/18 12:42 Intake & Output 10/18/18 10/19/18 10/19/18 18:59 06:59 18:59 Intake Total 1060 1524 782.333 Output Total 1200 1100 1550 Balance -140 424 -767.667 Weight 116.1 kg Intake: IV 10 220 Invasive Line 5 10 Sodium Chloride 0.9% 1, 220 000 ml @ 20 mls/hr IV . Q24H [facility] Rx#:[id number] Intake, IV Titration 204 62.333 Amount Furosemide 250 mg In 204 62.333 Sodium Chloride 0.9% 225 ml @ 10 MG/HR 10 mls/hr IVP .Q24H [facility] Rx#: [id number] Oral 1050 1100 720 Output: Urine 200 1100 1550 Uretheral (Law) 200 750 Stool 1000 Other: Voiding Method Indwelling Catheter Indwelling Catheter Indwelling Catheter # Bowel Movements 1 1 - Exam Vital signs are stable. General: The patient appeared well nourished and normally developed. HEENT: Head exam is unremarkable. Neck is without jugular venous distension. NG tube noted. LUNGS: Lungs are clear to auscultation and percussion. Breath sounds decreased. HEART: Rate and Rhythm are regular. First and second heart sounds normal. No murmurs, rubs or gallops. ABDOMEN: Abdominal exam reveals normal bowel sounds. Abdominal distention is noted with evidence of ascites .Nontender. EXTREMITITES: No clubbing, cyanosis, +2 edema. Rectal tube still inserted as well as Law catheter hopefully both will be removed removed later on today. - Labs CBC & Chem 7: 10/19/18 06:53 10/19/18 06:53 Labs: Abnormal Lab Results - Last 24 Hours (Table) 10/18/18 10/19/18 10/19/18 Range/Units 16:25 06:53 06:53 RBC 2.72 L (3.80-5.40) m/uL Hgb 7.8 L (11.4-16.0) gm/dL Hct 23.5 L (34.0-46.0) % RDW 19.1 H (11.5-15.5) % Sodium 127 L (137-145) mmol/L Carbon Dioxide 21 L (22-30) mmol/L BUN 36 H (7-17) mg/dL POC Glucose (mg/dL) 120 H (75-99) mg/dL Calcium 7.7 L (8.4-10.2) mg/dL 10/19/18 Range/Units 11:30 RBC (3.80-5.40) m/uL Hgb (11.4-16.0) gm/dL Hct (34.0-46.0) % RDW (11.5-15.5) % Sodium (137-145) mmol/L Carbon Dioxide (22-30) mmol/L BUN (7-17) mg/dL POC Glucose (mg/dL) 100 H (75-99) mg/dL Calcium (8.4-10.2) mg/dL Assessment and Plan Assessment: Acute sepsis requiring pressors Hyperkalemia Altered mental status Urinary tract infection Chronic liver disease cirrhosis Metabolic encephalopathy acute Anemia multifactorial Acute kidney injury. Hypovolemia with hypovolemic shock Hypothyroidism. Plan: Plan plan is to continue patient's current care she seems to be improving anticipates discharge to [facility] as soon as cleared by nephrology she is agreeable to this plan because she is not progressing very well. To continue to follow patient's progress DVT prophylaxis condition continued to monitor electrolytes and liver function tests paracentesis weekly with approximately 7- 10 L removed weekly. If patient goes home\rehab I'll see her back in the office 1-2 weeks
--- NOTE | 2018-10-19 19:50 | XR ---
EXAMINATION TYPE: XR knee limited bilateral DATE OF EXAM: 10/19/2018 COMPARISON: NONE HISTORY: Knee pain TECHNIQUE: 4 views FINDINGS: I see no fracture nor dislocation. Joint spaces are normal. There is no sign of knee joint effusion. There is subcutaneous edema around the leg. IMPRESSION: No fracture seen. There appears to be soft tissue edema.
[2018-10-19 21:35] LABS: Glucose,Whole Blood 103 mg/dL (75-99)
[2018-10-20] MEDS: LEVOTHYROXINE 25 MCG TAB PO SCH (06:14)
[2018-10-20] MEDS: PANTOPRAZOLE 40 MG TABLET PO SCH (06:14)
[2018-10-20] MEDS: MIDODRINE 5 MG TAB PO SCH ×3 (06:14→16:39)
[2018-10-20 06:51] LABS: Glucose,Whole Blood 88 mg/dL (75-99)
[2018-10-20] MEDS: SPIRONOLACTONE 25 MG TAB PO SCH (07:50)
[2018-10-20] MEDS: FERROUS SULFATE 325 MG TAB PO SCH ×2 (07:50→20:06)
[2018-10-20] MEDS: GABAPENTIN 100 MG CAP PO SCH ×3 (07:50→20:07)
[2018-10-20] MEDS: FUROSEMIDE 10 MG/ML 4 ML VIAL IV SCH ×2 (07:50→20:06)
[2018-10-20] MEDS: LACTULOSE 20 GM/30 ML CUP PO SCH ×2 (07:51→20:07)
[2018-10-20 08:22] LABS: Anisocytosis Slight; Basophils # (A) 0.1 k/uL (0-0.2); Basophils % (A) 1 %; Eosinophils # (A) 0.2 k/uL (0-0.7); Eosinophils % (A) 3 %; HCT 24.7 % (34.0-46.0); HGB 7.9 gm/dL (11.4-16.0); Hypochromasia Slight; Lymphocytes % (A) 13 %; MCH 27.9 pg (25.0-35.0); MCHC 32.1 g/dL (31.0-37.0); MCV 86.9 fL (80.0-100.0); Mean Platelet Volume 6.6; Monocytes # (A) 0.6 k/uL (0-1.0); Monocytes % (A) 8 %; Neutrophils # (A) 5.7 k/uL (1.3-7.7); Neutrophils % (A) 75 %; Platelet Count 226 k/uL (150-450); RBC 2.84 m/uL (3.80-5.40); RDW 19.7 % (11.5-15.5); WBC 7.6 k/uL (3.8-10.6)
[2018-10-20 08:36] LABS: Calcium 7.9 mg/dL (8.4-10.2); Magnesium 1.9 mg/dL (1.6-2.3); Potassium 3.8 mmol/L (3.5-5.1)
--- NOTE | 2018-10-20 11:56 | P.PN ---
Subjective Progress Note Date: 10/20/18 Seen and examined for the follow-up of acute kidney injury. Feels better, renal function improved back to baseline. Objective - Vital Signs Vital signs: Vital Signs Temp 97.7 F 10/20/18 11:38 Pulse 71 10/20/18 11:38 Resp 18 10/20/18 11:38 BP 89/51 10/20/18 11:38 Pulse Ox 98 10/20/18 11:38 Intake & Output 10/19/18 10/20/18 10/20/18 18:59 06:59 18:59 Intake Total 798.306 0940 Output Total 1550 1800 1999 Balance -767.667 -400 -1999 Intake: Intake, IV Titration 62.333 Amount Furosemide 250 mg In 62.333 Sodium Chloride 0.9% 225 ml @ 10 MG/HR 10 mls/hr IVP .Q24H [facility] Rx#: [id number] Oral 720 1400 Output: Urine 1550 800 Uretheral (Law) 750 Stool 1000 2000 Other: Voiding Method Toilet Toilet Toilet Bedside Commode Bedside Commode Bedside Commode # Voids 1 # Bowel Movements 1 1 - Exam No acute distress S1-S2 heard Lungs clear Abdomen slightly distended Edema. - Labs CBC & Chem 7: 10/20/18 07:04 10/20/18 07:04 Labs: Abnormal Lab Results - Last 24 Hours (Table) 10/19/18 10/19/18 10/20/18 Range/Units 16:20 21:23 07:04 RBC (3.80-5.40) m/uL Hgb (11.4-16.0) gm/dL Hct (34.0-46.0) % RDW (11.5-15.5) % Sodium 128 L (137-145) mmol/L Carbon Dioxide 20 L (22-30) mmol/L BUN 33 H (7-17) mg/dL Glucose 73 L (74-99) mg/dL POC Glucose (mg/dL) 101 H 103 H (75-99) mg/dL Calcium 7.9 L (8.4-10.2) mg/dL 10/20/18 Range/Units 07:04 RBC 2.84 L (3.80-5.40) m/uL Hgb 7.9 L (11.4-16.0) gm/dL Hct 24.7 L (34.0-46.0) % RDW 19.7 H (11.5-15.5) % Sodium (137-145) mmol/L Carbon Dioxide (22-30) mmol/L BUN (7-17) mg/dL Glucose (74-99) mg/dL POC Glucose (mg/dL) (75-99) mg/dL Calcium (8.4-10.2) mg/dL Assessment and Plan Assessment: #1 nonoliguric acute kidney injury secondary to hemodynamic ATN. Creatinine improving. #2 decompensated liver cirrhosis status post paracentesis #3 hyperkalemia resolved, currently hypokalemic #4 edema #5 shock off pressors. #6 hypervolemic hyponatremia. Plan: #1 creatinine improving. #2 maintain hemoglobin more than 8. #3 decrease Lasix to 40 mg IV twice a day.
[2018-10-20 12:02] LABS: Glucose,Whole Blood 85 mg/dL (75-99)
--- NOTE | 2018-10-20 22:07 | P.PN ---
Subjective On-call hospitalist covering for Dr. Jones over the weekend history of present illness, from records This is a 48-year-old female with known history of alcoholic liver cirrhosis, Chronic ascites, GI bleeding/anemia, previous bariatric surgery, history of paracentesis and history of esophageal varices banding. poor historian, confused , patient was brought into the ER with chief complaint of change in mental status, fatigue, and known history of liver cirrhosis. On admission, the patient was found to have significant abnormal labs including elevated potassium of 7.1, she had poor urine output, and she was quite acidotic , bicarb level was 11. In the ER the patient received a total of 4 L of 0.9 normal saline. And she was placed on a bicarb drip running at 150 mL per hour at this point. Patient was admitted to the ICU, required norepinephrine. Currently off pressor support. Ammonia level is trending down as well. subjective: 10/20/18 pt is seen and examined by me in the select unit. pt is fully awake and oriented , she looks uncomfortable and in distress, but no pain , breathing quietly , complains from some loose stool , mild abdominal discomfort alliance party due to distension, abdominal exam is benign . she is currently on lasix 40 mg BID and nephrology team are following the case. her Liver enz are mildy elevated. ammonia is 11 , Hb 7.9 , sodium 128. blood pressure is mildly low. she is going to ECF rehab upon discharge Objective - Vital Signs Vital signs: Vital Signs Temp 97.7 F 10/20/18 11:38 Pulse 71 10/20/18 11:38 Resp 18 10/20/18 11:38 BP 89/51 10/20/18 11:38 Pulse Ox 98 10/20/18 11:38 Intake & Output 10/19/18 10/20/18 10/20/18 18:59 06:59 18:59 Intake Total 798.919 2559 Output Total 1550 1800 1999 Balance -767.667 -400 -1999 Intake: Intake, IV Titration 62.333 Amount Furosemide 250 mg In 62.333 Sodium Chloride 0.9% 225 ml @ 10 MG/HR 10 mls/hr IVP .Q24H [facility] Rx#: [id number] Oral 720 1400 Output: Urine 1550 800 Uretheral (Law) 750 Stool 1000 1999 Other: Voiding Method Toilet Toilet Toilet Bedside Commode Bedside Commode Bedside Commode # Voids 1 # Bowel Movements 1 1 - Exam GENERAL: The patient is alert and oriented x3, not in any acute distress. Well developed, well nourished. HEENT: Pupils are round and equally reacting to light. EOMI. No scleral icterus. No conjunctival pallor. Normocephalic, atraumatic. No pharyngeal erythema. No thyromegaly. CARDIOVASCULAR: S1 and S2 present. No murmurs, rubs, or gallops. PULMONARY: Chest is clear to auscultation, no wheezing or crackles. -ABDOMEN: Soft, nontender, mildly distended, normoactive bowel sounds. No palpable organomegaly. MUSCULOSKELETAL: No joint swelling or deformity. EXTREMITIES: No cyanosis, clubbing, or pedal edema. NEUROLOGICAL: Gross neurological examination did not reveal any focal deficits. SKIN: No rashes. - Labs CBC & Chem 7: 10/20/18 07:04 10/20/18 07:04 Labs: Abnormal Lab Results - Last 24 Hours (Table) 10/19/18 10/19/18 10/20/18 Range/Units 16:20 21:23 07:04 RBC (3.80-5.40) m/uL Hgb (11.4-16.0) gm/dL Hct (34.0-46.0) % RDW (11.5-15.5) % Sodium 128 L (137-145) mmol/L Carbon Dioxide 20 L (22-30) mmol/L BUN 33 H (7-17) mg/dL Glucose 73 L (74-99) mg/dL POC Glucose (mg/dL) 101 H 103 H (75-99) mg/dL Calcium 7.9 L (8.4-10.2) mg/dL 10/20/18 Range/Units 07:04 RBC 2.84 L (3.80-5.40) m/uL Hgb 7.9 L (11.4-16.0) gm/dL Hct 24.7 L (34.0-46.0) % RDW 19.7 H (11.5-15.5) % Sodium (137-145) mmol/L Carbon Dioxide (22-30) mmol/L BUN (7-17) mg/dL Glucose (74-99) mg/dL POC Glucose (mg/dL) (75-99) mg/dL Calcium (8.4-10.2) mg/dL Assessment and Plan Assessment: Altered mental status secondary to hepatic encephalopathy improved now Acute hypotension on admission requiring pressor support likely due to volume depletion. Sepsis ruled out Hyperkalemia. Resolved. Acute metabolic acidosis secondary to acute kidney injury. Off Cardizem drip. Acute kidney injury secondary to ATN. Possible urinary tract infection. Urine culture showed no growth. Chronic alcohol at liver cirrhosis and history of ascites and paracentesis previously. Lactic acidosis resolved History of recent acidosis Coagulopathy secondary to liver disease Hypoalbuminemia Morbid obesity BMI 42.0 Plan: 48 yo F presents with alcoholic cirrhosis and hypotension, continue with diurtic for her volume overload, he blood pressure is low normal , asymptomatic , monitor low Na level . continue with the same treatment , continue with symptomatic treatment , resume home medication , monitor lytes and vitals including glucose , c/w iv fluids, cardiology consult is appreciated. infectious disease consult is appreciated . c /w same antibioitc . GI and DVT prophylaxis , further recommendation based upon pt clinical course and progress PT/OT: pt needs [facility] upon discharge
[2018-10-21] MEDS: PANTOPRAZOLE 40 MG TABLET PO SCH (06:15)
[2018-10-21] MEDS: LEVOTHYROXINE 25 MCG TAB PO SCH (06:15)
[2018-10-21] MEDS: MIDODRINE 5 MG TAB PO SCH ×3 (06:15→15:18)
[2018-10-21 07:12] LABS: Anisocytosis Moderate; Basophils % (A) 1 %; Eosinophils # (A) 0.2 k/uL (0-0.7); Eosinophils % (A) 4 %; HCT 25.2 % (34.0-46.0); HGB 8.2 gm/dL (11.4-16.0); Hypochromasia Slight; Lymphocytes % (A) 16 %; MCHC 32.5 g/dL (31.0-37.0); MCV 86.1 fL (80.0-100.0); Mean Platelet Volume 6.7; Monocytes # (A) 0.4 k/uL (0-1.0); Monocytes % (A) 7 %; Neutrophils # (A) 4.1 k/uL (1.3-7.7); Neutrophils % (A) 69 %; Platelet Count 231 k/uL (150-450); RBC 2.93 m/uL (3.80-5.40); RDW 20.2 % (11.5-15.5)
[2018-10-21 07:28] LABS: Albumin 2.3 g/dL (3.5-5.0); Bilirubin, Delta 0.4 mg/dL (0.0-0.2); Bilirubin,Unconjugated 0.8 mg/dL (0.0-1.1); Total Bilirubin 1.2 mg/dL (0.2-1.3); Total Protein 4.9 g/dL (6.3-8.2)
[2018-10-21] MEDS: LACTULOSE 20 GM/30 ML CUP PO SCH (08:56)
[2018-10-21] MEDS: GABAPENTIN 100 MG CAP PO SCH ×3 (09:26→19:48)
[2018-10-21] MEDS: SPIRONOLACTONE 25 MG TAB PO SCH (09:26)
[2018-10-21] MEDS: FERROUS SULFATE 325 MG TAB PO SCH ×2 (09:26→19:48)
[2018-10-21] MEDS: FUROSEMIDE 10 MG/ML 4 ML VIAL IV SCH ×2 (09:26→19:48)
--- NOTE | 2018-10-21 09:38 | P.PN ---
Subjective On-call hospitalist covering for Dr. Jones over the weekend, Dr. Jones resume the care of the patient from tomorrow 10/22/2018 history of present illness, from records This is a 48-year-old female with known history of alcoholic liver cirrhosis, Chronic ascites, GI bleeding/anemia, previous bariatric surgery, history of paracentesis and history of esophageal varices banding. poor historian, confused , patient was brought into the ER with chief complaint of change in mental status, fatigue, and known history of liver cirrhosis. On admission, the patient was found to have significant abnormal labs including elevated potassium of 7.1, she had poor urine output, and she was quite acidotic , bicarb level was 11. In the ER the patient received a total of 4 L of 0.9 normal saline. And she was placed on a bicarb drip running at 150 mL per hour at this point. Patient was admitted to the ICU, required norepinephrine. Currently off pressor support. Ammonia level is trending down as well. subjective: 10/20/18 pt is seen and examined by me in the select unit. pt is fully awake and oriented , she looks uncomfortable and in distress, but no pain , breathing quietly , complains from some loose stool , mild abdominal discomfort constitution party due to distension, abdominal exam is benign . she is currently on lasix 40 mg BID and nephrology team are following the case. her Liver enz are mildy elevated. ammonia is 11 , Hb 7.9 , sodium 128. blood pressure is mildly low. she is going to ECF rehab upon discharge 10/21/2018 Patient is fully awake and oriented, does not look in distress. Denies chest pain or dyspnea. No abdominal pain or nausea vomiting. She is tolerating diet well. However she still have 5-6 loose stool studies yesterday. We decreased her lactulose 30 mg twice a day to once daily. Last ammonia level was 11 few days ago. Nephrology input is appreciated, according to the recommendation she is currently on Lasix 40 mg twice a day. CBC looks his stable. Sodium 128, still low and similar to yesterday. Creatinine 1.0 which is stable as well. Objective - Vital Signs Vital signs: Vital Signs Temp 98.2 F 10/21/18 03:53 Pulse 66 10/21/18 03:53 Resp 19 10/21/18 03:53 BP 96/61 10/21/18 03:53 Pulse Ox 100 10/21/18 03:53 Intake & Output 10/20/18 10/21/18 10/21/18 18:59 06:59 18:59 Intake Total 402 Output Total 4500 200 Balance -4098 -200 Weight 116 kg Intake: Oral 402 Output: Urine 1500 200 Stool 3000 Other: Voiding Method Toilet Toilet Bedside Commode # Voids 1 # Bowel Movements 1 2 - Exam GENERAL: The patient is alert and oriented x3, not in any acute distress. Well developed, well nourished. HEENT: Pupils are round and equally reacting to light. EOMI. No scleral icterus. No conjunctival pallor. Normocephalic, atraumatic. No pharyngeal erythema. No thyromegaly. CARDIOVASCULAR: S1 and S2 present. No murmurs, rubs, or gallops. PULMONARY: Chest is clear to auscultation, no wheezing or crackles. -ABDOMEN: Soft, nontender, mildly distended, normoactive bowel sounds. No palpable organomegaly. MUSCULOSKELETAL: No joint swelling or deformity. EXTREMITIES: No cyanosis, clubbing, or pedal edema. NEUROLOGICAL: Gross neurological examination did not reveal any focal deficits. SKIN: No rashes. - Labs CBC & Chem 7: 10/21/18 06:54 10/21/18 06:54 Labs: Abnormal Lab Results - Last 24 Hours (Table) 10/21/18 10/21/18 Range/Units 06:54 06:54 RBC 2.93 L (3.80-5.40) m/uL Hgb 8.2 L (11.4-16.0) gm/dL Hct 25.2 L (34.0-46.0) % RDW 20.2 H (11.5-15.5) % Sodium 128 L (137-145) mmol/L BUN 33 H (7-17) mg/dL Creatinine 1.06 H (0.52-1.04) mg/dL Calcium 8.0 L (8.4-10.2) mg/dL Delta Bilirubin 0.4 H (0.0-0.2) mg/dL AST 44 H (14-36) U/L Alkaline Phosphatase 127 H (38-126) U/L Total Protein 4.9 L (6.3-8.2) g/dL Albumin 2.3 L (3.5-5.0) g/dL Assessment and Plan Assessment: Altered mental status secondary to hepatic encephalopathy improved now Acute hypotension on admission requiring pressor support likely due to volume depletion. Sepsis ruled out Hyperkalemia. Resolved. Hyponatremia, improving slowly. Loose bowel movement, mostly secondary to lactulose. Acute metabolic acidosis secondary to acute kidney injury. Off Cardizem drip. Acute kidney injury secondary to ATN. Possible urinary tract infection. Urine culture showed no growth. Chronic alcohol at liver cirrhosis and history of ascites and paracentesis previously. Lactic acidosis resolved History of recent acidosis Coagulopathy secondary to liver disease Hypoalbuminemia Morbid obesity BMI 42.0 Plan: 48 yo F presents with alcoholic cirrhosis and hypotension, continue with diurtic for her volume overload, he blood pressure is low normal , asymptomatic , monitor low Na level . continue with the same treatment , continue with symptomatic treatment , resume home medication , monitor lytes and vitals including glucose , c/w iv fluids, cardiology consult is appreciated. infectious disease consult is appreciated . c /w same antibioitc . GI and DVT prophylaxis , further recommendation based upon pt clinical course and progress PT/OT: pt needs [facility] upon discharge
--- NOTE | 2018-10-21 11:18 | P.PN ---
Subjective Progress Note Date: 10/21/18 Seen and examined for the follow-up of acute kidney injury. Feels better, renal function improved back to baseline. Objective - Vital Signs Vital signs: Vital Signs Temp 97.6 F 10/21/18 08:00 Pulse 67 10/21/18 08:00 Resp 18 10/21/18 08:00 BP 105/58 10/21/18 08:00 Pulse Ox 100 10/21/18 08:00 Intake & Output 10/20/18 10/21/18 10/21/18 18:59 06:59 18:59 Intake Total 402 Output Total 4500 200 1000 Balance -4098 -200 -1000 Weight 116 kg Intake: Oral 402 Output: Urine 1500 200 Stool 3000 1000 Other: Voiding Method Toilet Toilet Toilet Bedside Commode # Voids 1 # Bowel Movements 1 2 - Exam No acute distress S1-S2 heard Lungs clear Abdomen slightly distended Edema. - Labs CBC & Chem 7: 10/21/18 06:54 10/21/18 06:54 Labs: Abnormal Lab Results - Last 24 Hours (Table) 10/21/18 10/21/18 Range/Units 06:54 06:54 RBC 2.93 L (3.80-5.40) m/uL Hgb 8.2 L (11.4-16.0) gm/dL Hct 25.2 L (34.0-46.0) % RDW 20.2 H (11.5-15.5) % Sodium 128 L (137-145) mmol/L BUN 33 H (7-17) mg/dL Creatinine 1.06 H (0.52-1.04) mg/dL Calcium 8.0 L (8.4-10.2) mg/dL Delta Bilirubin 0.4 H (0.0-0.2) mg/dL AST 44 H (14-36) U/L Alkaline Phosphatase 127 H (38-126) U/L Total Protein 4.9 L (6.3-8.2) g/dL Albumin 2.3 L (3.5-5.0) g/dL Assessment and Plan Assessment: #1 nonoliguric acute kidney injury secondary to hemodynamic ATN. Creatinine improving. #2 decompensated liver cirrhosis status post paracentesis #3 hyperkalemia resolved, currently hypokalemic #4 edema #5 shock off pressors. #6 hypervolemic hyponatremia. Plan: #1 creatinine improving. #2 maintain hemoglobin more than 8. #3 he with Lasix 40 mg IV twice a day.
[2018-10-22] MEDS: MIDODRINE 5 MG TAB PO SCH ×3 (06:27→16:50)
[2018-10-22] MEDS: PANTOPRAZOLE 40 MG TABLET PO SCH (06:27)
[2018-10-22] MEDS: LEVOTHYROXINE 25 MCG TAB PO SCH (06:27)
[2018-10-22] MEDS: SPIRONOLACTONE 25 MG TAB PO SCH (07:58)
[2018-10-22] MEDS: FERROUS SULFATE 325 MG TAB PO SCH ×2 (07:58→20:35)
[2018-10-22] MEDS: GABAPENTIN 100 MG CAP PO SCH ×3 (07:58→20:35)
[2018-10-22] MEDS: LACTULOSE 20 GM/30 ML CUP PO SCH (07:59)
[2018-10-22] MEDS: FUROSEMIDE 10 MG/ML 4 ML VIAL IV SCH ×2 (07:59→20:35)
[2018-10-22 10:57] VITALS: BMI 40.4
--- NOTE | 2018-10-22 20:57 | PN ---
PROGRESS NOTE The patient is seen for followup for acute kidney injury. Renal function is stable and improved with creatinine down to 1.0 from 3.47 on initial admission. The patient also has underlying portal hypertension and chronic liver disease with recurrent ascites and is scheduled for paracentesis tomorrow as outpatient. She is also hyponatremic with sodium currently staying stable at about 128. The patient is maintained on Lasix currently IV at 40 mg q.12 hours. PHYSICAL EXAMINATION: This morning blood pressure was 100/48, heart rate 67 per minute. Patient is afebrile. Examination of the heart S1, S2. Examination of lungs bilateral breath sounds are heard. ABDOMEN: Soft distended nontender, ascites noted. Examination lower extremities shows edema 1+ bilaterally. LABS: Show sodium 128, potassium 4.0, BUN 33, serum creatinine 1.06, hemoglobin 8.2 g/dL. ASSESSMENT: 1. Acute kidney injury, nonoliguric, currently improved, mainly acute tubular necrosis. 2. Decompensated liver cirrhosis, scheduled for paracentesis tomorrow. 3. Hyperkalemia currently resolved. 4. Hypervolemic hyponatremia, maintained on IV push Lasix currently stable. PLAN: Continue with the IV Lasix. Can switch to p.o. at the time of discharge. Continue with Aldactone as well. Patient is advised regarding salt restriction. Repeat labs in a.m. MMODL / AYLAN: [id number] /
[2018-10-23] MEDS: LEVOTHYROXINE 25 MCG TAB PO SCH (06:48)
[2018-10-23] MEDS: PANTOPRAZOLE 40 MG TABLET PO SCH (06:48)
[2018-10-23] MEDS: MIDODRINE 5 MG TAB PO SCH ×3 (06:48→15:54)
[2018-10-23] MEDS: LACTULOSE 20 GM/30 ML CUP PO SCH (07:43)
[2018-10-23] MEDS: FUROSEMIDE 10 MG/ML 4 ML VIAL IV SCH ×2 (07:43→20:10)
[2018-10-23] MEDS: SPIRONOLACTONE 25 MG TAB PO SCH (07:43)
[2018-10-23] MEDS: GABAPENTIN 100 MG CAP PO SCH ×3 (07:43→20:10)
[2018-10-23] MEDS: FERROUS SULFATE 325 MG TAB PO SCH ×2 (07:43→20:10)
--- NOTE | 2018-10-23 07:46 | P.DS ---
Providers Date of admission: 10/09/18 14:00 Expected date of discharge: 10/23/18 Attending physician: Srinivas Jones Consults: 10/09/18 13:19 Consult Physician Urgent Consulting Provider: Tracey Hanley Consult Reason/Comments: crf, hyperkalemia Do you want consulting provider notified?: Yes 10/09/18 14:00 Consult Physician Stat Consulting Provider: Nicky Castillo Consult Reason/Comments: critical care Do you want consulting provider notified?: Yes 10/15/18 11:32 Consult Physician Routine Consulting Provider: Macario Amos Consult Reason/Comments: inpatient rehab Do you want consulting provider notified?: Yes Primary care physician: Srinivas Jones - Discharge Diagnosis(es) (1) Altered mental status Current Visit: Yes Status: Acute (2) Hepatic encephalopathy Current Visit: Yes Status: Acute (3) Hyperkalemia Current Visit: Yes Status: Acute (4) Hyponatremia Current Visit: Yes Status: Acute (5) Hypotension Current Visit: Yes Status: Acute (6) Severe sepsis Current Visit: Yes Status: Acute (7) UTI (urinary tract infection) Current Visit: Yes Status: Acute (8) Abdominal pain Current Visit: No Status: Acute (9) Acute kidney injury Current Visit: No Status: Acute (10) Alcoholic hepatitis with ascites Current Visit: No Status: Acute (11) Anemia Current Visit: No Status: Acute (12) Ascites Current Visit: No Status: Acute (13) Cirrhosis Current Visit: No Status: Acute (14) Coagulopathy Current Visit: No Status: Acute (15) Elevated TSH Current Visit: No Status: Acute (16) Morbid obesity with BMI of 45.0-49.9, adult Current Visit: No Status: Chronic Hospital Course: This is a 48-year-old female with known history of alcoholic liver cirrhosis, Chronic ascites, GI bleeding/anemia, previous bariatric surgery, history of paracentesis and history of esophageal varices banding. poor historian, confused , patient was brought into the ER with chief complaint of change in mental status, fatigue, and known history of liver cirrhosis. On admission, the patient was found to have significant abnormal labs including elevated potassium of 7.1, she had poor urine output, and she was quite acidotic , bicarb level was 11. In the ER the patient received a total of 4 L of 0.9 normal saline. And she was placed on a bicarb drip running at 150 mL per hour at this point. Patient was admitted to the ICU, required norepinephrine. She was doing better requiring once a week paracentesis. However she was profoundly weak and requiring rehabilitation in inpatient setting. Patient was agreeable to this or be discharged today Patient Condition at Discharge: Serious Plan - Discharge Summary Discharge Rx Participant: No New Discharge Prescriptions: New Lactulose [Cephulac] 30 gm PO DAILY ml Levothyroxine Sodium [Synthroid] 25 mcg PO DAILY@0630 tab Midodrine [ProAmatine] 10 mg PO AC-TID tab Pantoprazole [Protonix] 40 mg PO AC-BRKFST tablet. Spironolactone [Aldactone] 25 mg PO DAILY tab Continue Gabapentin [Neurontin] 100 mg PO TID #90 cap Ferrous Sulfate [Feosol] 325 mg PO BID #60 tab Sodium Bicarbonate Tab 650 mg PO BID Furosemide [Lasix] 60 mg PO DAILY Discontinued Midodrine [ProAmatine] 10 mg PO AC-TID #90 tab ALPRAZolam [Xanax] 0.5 mg PO DAILY PRN #10 tab PRN Reason: Anxiety Spironolactone [Aldactone] 50 mg PO TID Discharge Medication List Ferrous Sulfate [Feosol] 325 mg PO BID #60 tab 09/05/18 [Rx] Gabapentin [Neurontin] 100 mg PO TID #90 cap 09/05/18 [Rx] Furosemide [Lasix] 60 mg PO DAILY 10/09/18 [History] Sodium Bicarbonate Tab 650 mg PO BID 10/09/18 [History] Lactulose [Cephulac] 30 gm PO DAILY ml 10/22/18 [Rx] Levothyroxine Sodium [Synthroid] 25 mcg PO DAILY@0630 tab 10/22/18 [Rx] Midodrine [ProAmatine] 10 mg PO AC-TID tab 10/22/18 [Rx] Pantoprazole [Protonix] 40 mg PO AC-BRKFST tablet. 10/22/18 [Rx] Spironolactone [Aldactone] 25 mg PO DAILY tab 10/22/18 [Rx] Follow up Appointment(s)/Referral(s): Kishan Devine MD [STAFF PHYSICIAN] - 2 Weeks Srinivas Jones DO [Primary Care Provider] - 1 Week Activity/Diet/Wound Care/Special Instructions: sandro santoro
[2018-10-23] MEDS: ALBUMIN HUMAN 25% 50 ML in EMPTY BAG 1 BAG IVPB SCH ×4 (12:57→13:57)
--- NOTE | 2018-10-23 15:19 | US ---
EXAMINATION TYPE: US paracentesis abd w/image DATE OF EXAM: 10/23/2018 COMPARISON: NONE HISTORY: Ascites. PROCEDURE: Maximal barrier technique was utilized. The skin overlying a suitable pocket of fluid was localized with ultrasound and the overlying skin was prepped and draped. Ultrasound was utilized with sterile technique. Lidocaine was used for local anesthesia and a skin angelo made with a scalpel. Catheter was advanced under direct ultrasound guidance into a suitable pocket of fluid and approximately 9.7 liter s of serous fluid were removed. Catheter was withdrawn and hemostasis achieved. There is no immedia te complication; the patient is discharged in stable condition. IMPRESSION: STATUS POST ULTRASOUND GUIDED PARACENTESIS FOR PALLIATION OF ASCITES. THIS PROCEDURE WA S PERFORMED BY THE UNDERSIGNED.
--- NOTE | 2018-10-23 21:37 | PN ---
PROGRESS NOTE The patient is seen for followup for acute kidney injury. She has portal hypertension and recurring ascites and is scheduled for paracentesis today. The patient is maintained on IV Lasix along with oral spironolactone. She is on midodrine as blood pressures have been on the lower side. PHYSICAL EXAMINATION: This morning, blood pressure was a 105/55, heart rate of about 68 per minute. Patient is afebrile. Examination of the heart S1, S2. Examination of the lungs bilateral breath sounds are heard. Decreased breath sounds at bases. Abdomen is distended, soft, nontender. Ascites noted. Examination of lower extremity shows edema 2+ bilaterally. CONTACT OFFICER exam is grossly intact. LABS: Not available. ASSESSMENT: 1. Acute kidney injury, acute tubular necrosis, currently stable. Repeat labs today or in a.m. Continue with the IV diuretics for now. 2. Decompensated liver cirrhosis, scheduled for paracentesis today. 3. Hyperkalemia, currently resolved. 4. Hypervolemic hyponatremia, maintained on IV loop diuretics. Sodium stable at about 128. PLAN: Check labs today or tomorrow if the patient is not discharged. Continue with IV Lasix. Monitor blood pressure and give albumin at the time of paracentesis to help with the hemodynamic changes with fluid shifts. MMODL / IJN: [id number] /
[2018-10-24 05:06] VITALS: PULSE 75
[2018-10-24] MEDS: LEVOTHYROXINE 25 MCG TAB PO SCH (05:37)
[2018-10-24 07:18] VITALS: BP 103/63; RESP 18; TEMP 98.2
[2018-10-24 07:48] LABS: Potassium 4.1 mmol/L (3.5-5.1)
[2018-10-24 07:51] LABS: Anisocytosis Moderate; HCT 23.8 % (34.0-46.0); HGB 7.4 gm/dL (11.4-16.0); Hypochromasia Slight; MCH 27.1 pg (25.0-35.0); MCHC 30.9 g/dL (31.0-37.0); MCV 87.8 fL (80.0-100.0); Mean Platelet Volume 6.4; Platelet Count 207 k/uL (150-450); RBC 2.72 m/uL (3.80-5.40); RDW 20.5 % (11.5-15.5); WBC 5.8 k/uL (3.8-10.6)
[2018-10-24] MEDS: GABAPENTIN 100 MG CAP PO SCH (09:22)
[2018-10-24] MEDS: SPIRONOLACTONE 25 MG TAB PO SCH (09:23)
[2018-10-24] MEDS: PANTOPRAZOLE 40 MG TABLET PO SCH (09:23)
[2018-10-24] MEDS: LACTULOSE 20 GM/30 ML CUP PO SCH (09:23)
[2018-10-24] MEDS: FERROUS SULFATE 325 MG TAB PO SCH (09:23)
[2018-10-24] MEDS: FUROSEMIDE 10 MG/ML 4 ML VIAL IV SCH (09:23)
[2018-10-24] MEDS: MIDODRINE 5 MG TAB PO SCH (09:23)
--- NOTE | 2018-10-24 23:53 | PN ---
PROGRESS NOTE HISTORY: The patient was seen this morning for followup for acute kidney injury and hyponatremia. She remains on IV diuretics. Her renal function is stable, although creatinine is slightly elevated at 1.2. Sodium is up to 129. The patient had paracentesis done yesterday about 9 L of fluid was removed. She did get albumin with the paracentesis. Currently, patient is waiting for insurance approval for discharge. PHYSICAL EXAMINATION: Blood pressure this morning 103/63, heart rate 75 per minute, patient is afebrile. Examination of the heart S1, S2. Examination lungs, bilateral breath sounds are heard. Abdomen is soft, nontender, distended with ascites. Examination of lower extremities shows edema 1+ bilaterally. LABS: Sodium 129, potassium 4.1, CO2 is 20, BUN 36, serum creatinine 1.2, hemoglobin 7.4 g/dL. ASSESSMENT: 1. Acute kidney injury, acute tubular necrosis, currently stable. Serum creatinine is slightly higher than 3 days ago. The patient has been on IV Lasix. She will be switched to p.o. Lasix p.o. loop diuretics at the time of discharge. 2. Hypervolemic hyponatremia, currently stable, slightly improved. Continue with loop diuretics and Aldactone. 3. Liver cirrhosis with recurrent ascites. 4. Status post paracentesis. 5. Anemia, multifactorial. PLAN: Patient is stable for discharge from Nephrology standpoint. Monitor labs as outpatient. MMODL / IJN: [id number] /
== END 2018-10-24 12:21 | DRG 871 ==
LOC: EC 11:13 → 2SICU 14:00 → 3SCARD 10-16 01:47 → 4SSUR 10-24 02:54
PROVIDERS: ADMIT Family Medicine; ATTEND Family Medicine
PROC: 02HV33Z Insertion of Infusion Device into Superior Vena Cava, Percutaneous Approach (ICD-10-PCS; 2018-10-09)
PROC: 0W9G3ZZ Drainage of Peritoneal Cavity, Percutaneous Approach (ICD-10-PCS; principal; 2018-10-12)
PROC: 0W9G3ZZ Drainage of Peritoneal Cavity, Percutaneous Approach (ICD-10-PCS; 2018-10-17)
PROC: 0W9G3ZZ Drainage of Peritoneal Cavity, Percutaneous Approach (ICD-10-PCS; 2018-10-23)
DX: A41.9 Sepsis, unspecified organism (principal); G93.41 Metabolic encephalopathy; K76.7 Hepatorenal syndrome; N17.0 Acute kidney failure with tubular necrosis; R57.1 Hypovolemic shock; D68.4 Acquired coagulation factor deficiency; E87.1 Hypo-osmolality and hyponatremia; E87.2 Acidosis; K76.6 Portal hypertension; N39.0 Urinary tract infection, site not specified; Z68.42 Body mass index [BMI] 45.0-49.9, adult; D64.9 Anemia, unspecified; E03.9 Hypothyroidism, unspecified; E66.01 Morbid (severe) obesity due to excess calories; E83.39 Other disorders of phosphorus metabolism; E87.5 Hyperkalemia; E87.6 Hypokalemia; E88.09 Other disorders of plasma-protein metabolism, not elsewhere classified; F17.210 Nicotine dependence, cigarettes, uncomplicated; K70.40 Alcoholic hepatic failure without coma; K55.20 Angiodysplasia of colon without hemorrhage; K70.11 Alcoholic hepatitis with ascites; K70.31 Alcoholic cirrhosis of liver with ascites; N18.9 Chronic kidney disease, unspecified; R65.20 Severe sepsis without septic shock; T50.2X5A Adverse effect of carbonic-anhydrase inhibitors, benzothiadiazides and other diuretics, initial encounter; Z79.899 Other long term (current) drug therapy; Z82.49 Family history of ischemic heart disease and other diseases of the circulatory system; Z82.5 Family history of asthma and other chronic lower respiratory diseases; Z83.3 Family history of diabetes mellitus; Z90.710 Acquired absence of both cervix and uterus; Z98.84 Bariatric surgery status; R94.6 Abnormal results of thyroid function studies; Z56.0 Unemployment, unspecified
CPT/HCPCS: 36415; 36556; 36600; 49083; 51702; 70450; 71045; 71046; 72170; 76705; 80048; 80053; 80076; 80202; 80306; 80320; 81001; 82140; 82533; 82550; 82553; 82805; 82945; 83605; 83735; 83930; 83935; 84100; 84132; 84300; 84484; 85025; 85027; 85610; 85730; 86850; 86900; 86901; 86920; 87040; 87070; 87086; 87205; 89050; 90471; 90715; 93005; 94640; 94644; 96361; 96365; 96368; 96375; 99291

== ENCOUNTER 2018-11-06 13:10 | Day surgery (SDC) | payer OTHER ==
[2018-11-06 13:40] LABS: Mean Platelet Volume 6.9; Platelet Count 239 k/uL (150-450)
[2018-11-06 13:47] LABS: INR 1.2 (<1.2); Prothrombin Time 12.2 sec (9.0-12.0)
[2018-11-06] MEDS: ALBUMIN HUMAN 25% 50 ML in EMPTY BAG 1 BAG IVPB SCH ×4 (13:52→14:53)
[2018-11-06 14:13] VITALS: TEMP 97.8
[2018-11-06 15:11] VITALS: RESP 16
[2018-11-06 16:13] VITALS: BP 103/56; PULSE 83
--- NOTE | 2018-11-07 09:09 | US ---
Therapeutic paracentesis. DATE OF EXAM: 11/06/2018 CLINICAL HISTORY: Ascites The procedure was discussed with the patient. The risks, complications, benefits, and alternatives we re discussed and any questions were answered. Informed consent was obtained. The patient was placed s upine on the ultrasound table and prepped and draped in the usual sterile fashion. All elements of maximal barrier technique were utilized. Under ultrasound guidance, access into the right lower quadrant was obtained, via the paracentesis catheter system and direct ultrasound guidanc e. Approximately 10.9 liters of straw-colored fluid was removed. The patient was stable throughout the p rocedure and remained stable upon discharge from Department of Radiology. IMPRESSION: Successful therapeutic paracentesis under ultrasound guidance.
== END 2018-11-06 16:05 | disposition home or self-care (01) ==
LOC: RADPROMAIN 13:10
DX: R18.8 Other ascites (principal)
CPT/HCPCS: 82565; 85049; 85610; 36415; 49083; P9047

== ENCOUNTER 2018-11-13 12:59 | Day surgery (SDC) | payer OTHER ==
[2018-11-13 13:34] LABS: Mean Platelet Volume 6.9; Platelet Count 219 k/uL (150-450)
[2018-11-13 13:47] LABS: INR 1.1 (<1.2); Prothrombin Time 11.8 sec (9.0-12.0)
[2018-11-13] MEDS: ALBUMIN HUMAN 25% 50 ML in EMPTY BAG 1 BAG IVPB SCH ×4 (13:55→14:43)
[2018-11-13 14:07] VITALS: TEMP 98
[2018-11-13 16:01] VITALS: BP 118/56; PULSE 76; RESP 16
--- NOTE | 2018-11-13 16:13 | US ---
EXAMINATION TYPE: US paracentesis abd w/image DATE OF EXAM: 11/13/2018 COMPARISON: NONE HISTORY: Ascites. PROCEDURE: Maximal barrier technique was utilized. The skin overlying a suitable pocket of fluid was localized with ultrasound and the overlying skin was prepped and draped. Ultrasound was utilized with sterile technique. Lidocaine was used for local anesthesia and a skin angelo made with a scalpel. Catheter was advanced under direct ultrasound guidance into a suitable pocket of fluid and approximately 9.8 liter s of serous fluid were removed. Catheter was withdrawn and hemostasis achieved. There is no immedia te complication; the patient is discharged in stable condition. IMPRESSION: STATUS POST ULTRASOUND GUIDED PARACENTESIS FOR PALLIATION OF ASCITES. THIS PROCEDURE WA S PERFORMED BY THE UNDERSIGNED.
== END 2018-11-13 15:45 | disposition home or self-care (01) ==
LOC: RADPROMAIN 12:59
DX: R18.8 Other ascites (principal)
CPT/HCPCS: 82565; 85049; 85610; 36415; 49083; P9047

== ENCOUNTER 2018-11-20 12:32 | Day surgery (SDC) | payer BC, OTHER ==
[2018-11-20 13:03] VITALS: RESP 20; TEMP 97.6
[2018-11-20 13:05] LABS: Mean Platelet Volume 7.1; Platelet Count 244 k/uL (150-450)
[2018-11-20 13:20] LABS: INR 1.1 (<1.2); Prothrombin Time 11.9 sec (9.0-12.0)
[2018-11-20] MEDS: ALBUMIN HUMAN 25% 50 ML in EMPTY BAG 1 BAG IVPB SCH ×4 (13:28→14:34)
[2018-11-20 15:13] VITALS: BP 128/57; PULSE 75
--- NOTE | 2018-11-20 15:46 | US ---
EXAMINATION TYPE: US paracentesis abd w/image DATE OF EXAM: 11/20/2018 COMPARISON: NONE HISTORY: Ascites. PROCEDURE: Maximal barrier technique was utilized. The skin overlying a suitable pocket of fluid was localized with ultrasound and the overlying skin was prepped and draped. Ultrasound was utilized with sterile technique. Lidocaine was used for local anesthesia and a skin angelo made with a scalpel. Catheter was advanced under direct ultrasound guidance into a suitable pocket of fluid and approximately 12.7 lite rs of serous fluid were removed. Catheter was withdrawn and hemostasis achieved. There is no immedi ate complication; the patient is discharged in stable condition. IMPRESSION: STATUS POST ULTRASOUND GUIDED PARACENTESIS FOR PALLIATION OF ASCITES. THIS PROCEDURE WA S PERFORMED BY THE UNDERSIGNED.
== END 2018-11-20 15:45 | disposition home or self-care (01) ==
LOC: RADPROMAIN 12:32
DX: R18.8 Other ascites (principal)
CPT/HCPCS: 82565; 85049; 85610; 36415; 49083; P9047

== ENCOUNTER 2018-11-27 16:24 | Observation (INO) | payer OTHER ==
[2018-11-27 13:14] LABS: INR 1.1 (<1.2); Prothrombin Time 11.5 sec (9.0-12.0)
[2018-11-27] MEDS: ALBUMIN HUMAN 25% 50 ML in EMPTY BAG 1 BAG IVPB SCH ×4 (13:15→16:08)
[2018-11-27 13:50] LABS: Calcium 7.8 mg/dL (8.4-10.2); Potassium 5.3 mmol/L (3.5-5.1)
[2018-11-27 13:59] LABS: Anisocytosis Slight; HCT 25.1 % (34.0-46.0); HGB 8.2 gm/dL (11.4-16.0); Hypochromasia Slight; MCH 29.1 pg (25.0-35.0); MCHC 32.7 g/dL (31.0-37.0); Mean Platelet Volume 7.2; RBC 2.82 m/uL (3.80-5.40); WBC 5.8 k/uL (3.8-10.6)
[2018-11-27 14:04] LABS: Platelet Count 249 k/uL (150-450)
[2018-11-27 14:32] LABS: Eosinophils # (M) 0.06 k/uL (0-0.7); Monocytes # (M) 0.29 k/uL (0-1.0); Neutrophils # (M) 4.35 k/uL (1.3-7.7); Neutrophils % (M) 75 %; Nucleated Red Blood Cells 0 /100 WBC (0-0); Total Cells Counted 100
[2018-11-27 14:33] LABS: Crenated RBC Present; Poikilocytosis (M) Present
[2018-11-27 14:34] LABS: RBC Fragments Present
--- NOTE | 2018-11-27 16:53 | ED ---
General Adult HPI - General Chief complaint: Recheck/Abnormal Lab/Rx Time Seen by Provider: 11/27/18 16:34 Source: patient, RN notes reviewed, old records reviewed Mode of arrival: wheelchair - History of Present Illness Initial comments: 48-year-old female history of liver disease with recurrent ascites presents from outpatient surgery after paracentesis for evaluation of bilateral red abnormalities. Patient was noted to have low sodium, sent to the ER for repeat lab testing and further evaluation. Patient has no complaint, she does not want to be in the emergency department. She will allow repeat blood testing at upon initial evaluation refuses any other evaluation and definitely refuses admission if this is required. She has no specific complaints, she's hungry, no nausea or vomiting, no pain, no chest pain or dyspnea. - Related Data Home Medications Medication Instructions Recorded Confirmed Furosemide [Lasix] 40 mg PO DAILY PRN 10/09/18 11/27/18 Sodium Bicarbonate Tab 650 mg PO BID 10/09/18 11/27/18 ALPRAZolam [Xanax] 0.5 mg PO Q8HR PRN 11/06/18 11/27/18 Spironolactone [Aldactone] 150 mg PO DAILY PRN 11/06/18 11/27/18 Previous Rx's Medication Instructions Recorded Gabapentin [Neurontin] 100 mg PO TID #90 cap 09/05/18 Lactulose [Cephulac] 30 gm PO DAILY ml 10/22/18 Midodrine [ProAmatine] 10 mg PO AC-TID tab 10/22/18 Allergies Allergy/AdvReac Type Severity Reaction Status Date / Time adhesive tape Allergy Rash/Hives Verified 11/27/18 16:29 Review of Systems ROS Statement: Those systems with pertinent positive or pertinent negative responses have been documented in the HPI. ROS Other: All systems not noted in ROS Statement are negative. Past Medical History Past Medical History: GI Bleed, Liver Disease Additional Past Medical History / Comment(s): ascites,"hernia", gi bleed/anemia -required blood transfusions History of Any Multi-Drug Resistant Organisms: None Reported Past Surgical History: Bariatric Surgery, Section Additional Past Surgical History / Comment(s): gastric bypass in 2002, recurrent paracentesis,colonoscopy, egd w/apc/variceal banding/bx Past Anesthesia/Blood Transfusion Reactions: No Reported Reaction Additional Past Anesthesia/Blood Transfusion Reaction / Comment(s): blood transfusions Past Psychological History: Anxiety Smoking Status: Current every day smoker Past Alcohol Use History: Daily Past Drug Use History: None Reported - Past Family History Mother History Unknown: Yes Family Medical History: Congestive Heart Failure (CHF), COPD Father History Unknown: Yes Family Medical History: Diabetes Mellitus General Exam General appearance: alert, in no apparent distress Head exam: Present: atraumatic, normocephalic Eye exam: Present: normal appearance, PERRL ENT exam: Present: normal exam Neck exam: Present: normal inspection. Absent: tenderness Respiratory exam: Present: normal lung sounds bilaterally. Absent: respiratory distress, wheezes Cardiovascular Exam: Present: regular rate, normal rhythm GI/Abdominal exam: Present: soft, distended. Absent: tenderness, guarding, rebound Extremities exam: Present: normal inspection, normal capillary refill. Absent: pedal edema Neurological exam: Present: alert, oriented X3 Psychiatric exam: Present: normal affect, normal mood Skin exam: Present: warm, dry, intact. Absent: cyanosis, diaphoretic Course Vital Signs 11/27/18 11/27/18 11/27/18 13:00 14:12 14:30 Temperature 97.5 F L Pulse Rate Pulse Rate [ 61 66 65 Left Pulse Oximetery] Respiratory 20 20 20 Rate Blood Pressure Blood Pressure 92/39 108/51 104/52 [Left Arm Supine] O2 Sat by Pulse 100 100 100 Oximetry 11/27/18 11/27/18 11/27/18 14:42 14:52 15:02 Temperature Pulse Rate Pulse Rate [ 66 67 67 Left Pulse Oximetery] Respiratory 20 20 20 Rate Blood Pressure Blood Pressure 114/50 112/51 100/52 [Left Arm Supine] O2 Sat by Pulse 100 100 100 Oximetry 11/27/18 11/27/18 11/27/18 15:12 15:20 15:30 Temperature Pulse Rate Pulse Rate [ 70 70 69 Left Pulse Oximetery] Respiratory 20 20 20 Rate Blood Pressure Blood Pressure 104/58 100/51 94/44 [Left Arm Supine] O2 Sat by Pulse 100 100 Oximetry 11/27/18 11/27/18 11/27/18 15:40 15:50 16:06 Temperature Pulse Rate Pulse Rate [ 74 70 70 Left Pulse Oximetery] Respiratory 20 20 20 Rate Blood Pressure Blood Pressure 99/50 99/49 101/56 [Left Arm Supine] O2 Sat by Pulse 100 100 100 Oximetry 11/27/18 11/27/18 16:30 17:39 Temperature 97.8 F Pulse Rate 75 82 Pulse Rate [ Left Pulse Oximetery] Respiratory 14 16 Rate Blood Pressure 96/51 91/44 Blood Pressure [Left Arm Supine] O2 Sat by Pulse 94 L 100 Oximetry Procedures - [place] Protocol (Time Out) Procedure Performed:: Paracentesis Nurse: Chiara Arriola Patient Identification (2 identifiers required): Chart, Verbal, Arm Band, Name, Medical Record Number Patient/Legal Filament Welder has Confirmed: Identity, Site, Procedure, Consent Site Marked: Not Applicable Site Verified With Patient/Guardian: No Medical Decision Making - Medical Decision Making 48-year-old female presenting from outpatient paracentesis. Was reported the patient at 11 L drained. She did have some laboratory studies which indicated hyponatremia 118. She was sent to the emergency department for evaluation. I discussed case with the patient's health and fitness instructor Dr. Lyman. Sodium repeated, 122, creatinine 1.6 which is baseline, albumin stable 3.0. Patient will be admitted for IV hydration, Dr. Lyman recommend 50 mL per hour of normal saline. Sodium will be rechecked in the morning. - Lab Data Result diagrams: 11/27/18 16:53 11/27/18 16:53 Lab Results 11/27/18 11/27/18 11/27/18 Range/Units 12:50 12:50 12:50 WBC 5.8 (3.8-10.6) k/uL RBC 2.82 L (3.80-5.40) m/uL Hgb 8.2 L (11.4-16.0) gm/dL Hct 25.1 L (34.0-46.0) % MCV 89.0 (80.0-100.0) fL MCH 29.1 (25.0-35.0) pg MCHC 32.7 (31.0-37.0) g/dL RDW 17.0 H (11.5-15.5) % Plt Count 249 (150-450) k/uL Neutrophils % Not Reportable Neutrophils % (Manual) 75 % Lymphocytes % Not Reportable Lymphocytes % (Manual) 19 % Monocytes % Not Reportable Monocytes % (Manual) 5 % Eosinophils % Not Reportable Eosinophils % (Manual) 1 % Basophils % Not Reportable Neutrophils # Not Reportable Neutrophils # (Manual) 4.35 (1.3-7.7) k/uL Lymphocytes # Not Reportable Lymphocytes # (Manual) 1.10 (1.0-4.8) k/uL Monocytes # Not Reportable Monocytes # (Manual) 0.29 (0-1.0) k/uL Eosinophils # Not Reportable Eosinophils # (Manual) 0.06 (0-0.7) k/uL Basophils # Not Reportable Nucleated RBCs 0 (0-0) /100 WBC Hypochromasia Slight Poikilocytosis (manual Present Anisocytosis Slight Crenated Cell Present Fragmented RBCs Present PT 11.5 (9.0-12.0) sec INR 1.1 (<1.2) Sodium 118 L* (137-145) mmol/L Potassium 5.3 H (3.5-5.1) mmol/L Chloride 95 L (98-107) mmol/L Carbon Dioxide 16 L (22-30) mmol/L Anion Gap 7 mmol/L BUN 51 H (7-17) mg/dL Creatinine 1.66 H (0.52-1.04) mg/dL Est GFR (CKD-EPI)AfAm 41 (>60 ml/min/1.73 sqM) Est GFR (CKD-EPI)NonAf 36 (>60 ml/min/1.73 sqM) Glucose 95 (74-99) mg/dL Calcium 7.8 L (8.4-10.2) mg/dL Total Bilirubin (0.2-1.3) mg/dL AST (14-36) U/L ALT (9-52) U/L Alkaline Phosphatase (38-126) U/L Total Protein (6.3-8.2) g/dL Albumin (3.5-5.0) g/dL 11/27/18 11/27/18 Range/Units 16:53 16:53 WBC 5.1 (3.8-10.6) k/uL RBC 2.89 L (3.80-5.40) m/uL Hgb 7.9 L (11.4-16.0) gm/dL Hct 25.3 L (34.0-46.0) % MCV 87.8 (80.0-100.0) fL MCH 27.3 (25.0-35.0) pg MCHC 31.1 (31.0-37.0) g/dL RDW 16.8 H (11.5-15.5) % Plt Count 221 (150-450) k/uL Neutrophils % 62 Neutrophils % (Manual) % Lymphocytes % 26 Lymphocytes % (Manual) % Monocytes % 7 Monocytes % (Manual) % Eosinophils % 2 Eosinophils % (Manual) % Basophils % 1 Neutrophils # 3.2 Neutrophils # (Manual) (1.3-7.7) k/uL Lymphocytes # 1.3 Lymphocytes # (Manual) (1.0-4.8) k/uL Monocytes # 0.4 Monocytes # (Manual) (0-1.0) k/uL Eosinophils # 0.1 Eosinophils # (Manual) (0-0.7) k/uL Basophils # 0.0 Nucleated RBCs (0-0) /100 WBC Hypochromasia Slight Poikilocytosis (manual Anisocytosis Slight Crenated Cell Fragmented RBCs PT (9.0-12.0) sec INR (<1.2) Sodium 122 L (137-145) mmol/L Potassium 5.0 (3.5-5.1) mmol/L Chloride 95 L (98-107) mmol/L Carbon Dioxide 18 L (22-30) mmol/L Anion Gap 9 mmol/L BUN 51 H (7-17) mg/dL Creatinine 1.60 H (0.52-1.04) mg/dL Est GFR (CKD-EPI)AfAm 43 (>60 ml/min/1.73 sqM) Est GFR (CKD-EPI)NonAf 37 (>60 ml/min/1.73 sqM) Glucose 94 (74-99) mg/dL Calcium 8.1 L (8.4-10.2) mg/dL Total Bilirubin 1.2 (0.2-1.3) mg/dL AST 40 H (14-36) U/L ALT 24 (9-52) U/L Alkaline Phosphatase 122 (38-126) U/L Total Protein 6.1 L (6.3-8.2) g/dL Albumin 3.0 L (3.5-5.0) g/dL Disposition Clinical Impression: Cirrhosis, Hyponatremia Disposition: ADMITTED IP TO THIS HOSP Condition: Stable Is patient prescribed a controlled substance at d/c from ED?: No Referrals: Srinivas Jones DO [Primary Care Provider] - 1-2 days Decision to Admit Reason: Admit from EC Decision Date: 11/27/18 Decision Time: 17:49
[2018-11-27 17:06] LABS: Anisocytosis Slight; Basophils % (A) 1 %; Eosinophils # (A) 0.1 k/uL (0-0.7); Eosinophils % (A) 2 %; HCT 25.3 % (34.0-46.0); HGB 7.9 gm/dL (11.4-16.0); Hypochromasia Slight; Lymphocytes # (A) 1.3 k/uL (1.0-4.8); Lymphocytes % (A) 26 %; MCH 27.3 pg (25.0-35.0); MCHC 31.1 g/dL (31.0-37.0); MCV 87.8 fL (80.0-100.0); Mean Platelet Volume 7.2; Monocytes # (A) 0.4 k/uL (0-1.0); Monocytes % (A) 7 %; Neutrophils # (A) 3.2 k/uL (1.3-7.7); Neutrophils % (A) 62 %; Platelet Count 221 k/uL (150-450); RBC 2.89 m/uL (3.80-5.40); RDW 16.8 % (11.5-15.5); WBC 5.1 k/uL (3.8-10.6)
[2018-11-27 17:16] LABS: Calcium 8.1 mg/dL (8.4-10.2); Total Bilirubin 1.2 mg/dL (0.2-1.3); Total Protein 6.1 g/dL (6.3-8.2)
[2018-11-27] MEDS ORDERED: NALOXONE 0.4 MG/ML 1 ML VIAL IV PRN (17:43)
[2018-11-27] MEDS ORDERED: MORPHINE SULFATE 4 MG/ML SYRINGE IV PRN (17:43)
[2018-11-27] MEDS ORDERED: SODIUM CHLORIDE 0.9% 1,000 ML IV SCH (17:45)
[2018-11-27 18:59] VITALS: BMI 34.9
[2018-11-27] MEDS ORDERED: ALPRAZolam 0.5 MG TAB PO PRN (20:33)
[2018-11-27] MEDS: LACTULOSE 20 GM/30 ML CUP PO SCH (21:40)
[2018-11-27] MEDS: GABAPENTIN 100 MG CAP PO SCH (21:42)
[2018-11-27] MEDS: SODIUM BICARBONATE TAB 650 MG TAB PO SCH (21:42)
[2018-11-27] MEDS: MIDODRINE 5 MG TAB PO SCH (21:42)
[2018-11-28] MEDS: MIDODRINE 5 MG TAB PO SCH ×2 (06:30→12:13)
[2018-11-28] MEDS ORDERED: MIDODRINE 5 MG TAB PO SCH (07:30)
[2018-11-28 07:32] LABS: Albumin 2.1 g/dL (3.5-5.0); Calcium 7.5 mg/dL (8.4-10.2); Magnesium 2.5 mg/dL (1.6-2.3); Potassium 5.2 mmol/L (3.5-5.1); Total Bilirubin 0.6 mg/dL (0.2-1.3); Total Protein 4.5 g/dL (6.3-8.2)
[2018-11-28 07:35] LABS: Anisocytosis Slight; Basophils % (A) 1 %; Eosinophils # (A) 0.2 k/uL (0-0.7); Eosinophils % (A) 3 %; Lymphocytes # (A) 1.3 k/uL (1.0-4.8); Lymphocytes % (A) 27 %; MCH 27.2 pg (25.0-35.0); MCHC 31.3 g/dL (31.0-37.0); MCV 86.8 fL (80.0-100.0); Mean Platelet Volume 7.4; Monocytes # (A) 0.5 k/uL (0-1.0); Monocytes % (A) 10 %; Neutrophils # (A) 2.7 k/uL (1.3-7.7); Neutrophils % (A) 57 %; Platelet Count 165 k/uL (150-450); RBC 2.24 m/uL (3.80-5.40); RDW 16.8 % (11.5-15.5); WBC 4.8 k/uL (3.8-10.6)
[2018-11-28 07:51] LABS: HCT 19.4 % (34.0-46.0); HGB 6.1 gm/dL (11.4-16.0)
[2018-11-28] MEDS: SODIUM BICARBONATE TAB 650 MG TAB PO SCH (09:27)
[2018-11-28] MEDS: LACTULOSE 20 GM/30 ML CUP PO SCH (09:27)
[2018-11-28] MEDS: GABAPENTIN 100 MG CAP PO SCH (09:27)
[2018-11-28 09:34] VITALS: RESP 18; TEMP 98
[2018-11-28 12:17] VITALS: BP 96/44; PULSE 72
--- NOTE | 2018-11-28 14:19 | US ---
EXAMINATION TYPE: US paracentesis abd w/image DATE OF EXAM: 11/27/2018 COMPARISON: NONE HISTORY: Ascites. PROCEDURE: Maximal barrier technique was utilized. The skin overlying a suitable pocket of fluid was localized with ultrasound and the overlying skin was prepped and draped. Ultrasound was utilized with sterile technique. Lidocaine was used for local anesthesia and a skin angelo made with a scalpel. Catheter was advanced under direct ultrasound guidance into a suitable pocket of fluid and approximately 11.1 lite rs of creamy yellow fluid were removed. Catheter was withdrawn and hemostasis achieved. There is no immediate complication; the patient is discharged in stable condition. IMPRESSION: STATUS POST ULTRASOUND GUIDED PARACENTESIS FOR PALLIATION OF ASCITES. THIS PROCEDURE WA S PERFORMED BY THE UNDERSIGNED.
--- NOTE | 2018-11-28 21:50 | CONS ---
CONSULTATION REASON FOR CONSULTATION: Hyponatremia. HISTORY OF PRESENT ILLNESS: The patient is a 48-year-old lady with chronic liver disease, portal hypertension and frequent paracenteses. She was admitted to the hospital, as her sodium as outpatient was noted to be 118 mEq/L. Patient does have a history of hyponatremia. However, her serum sodium has previously been about 128 to 127 . Patient had about 11 liters of fluid removed. She did receive albumin after her paracentesis yesterday. Patient is currently maintained on normal saline. Her serum sodium improved to 122 last night and this morning it is 120. Her potassium was also mildly elevated at 5.3 mEq/L. At home patient is maintained on Lasix and Aldactone. This morning patient states she wants to go home. She denies any significant complaints. PAST MEDICAL HISTORY: 1. Chronic liver disease. 2. Previous history of GI bleed. 3. Chronic hyponatremia. 4. Multiple episodes of acute kidney injury which usually improved with fluid administration. PAST SURGICAL HISTORY: 1. Bariatric surgery. 2. . 3. Gastric bypass 2002. 4. Recurrent paracentesis. 5. Colonoscopy. 6. EGD. 7. Variceal banding. SOCIAL HISTORY: Positive for patient being a smoker. No history of drug abuse. She continues to consume alcohol on a daily basis. MEDICATIONS: Include: 1. Lasix. 2. Sodium bicarb. 3. Xanax. 4. Aldactone. The patient has been on midodrine and Neurontin previously. ALLERGIES: Include ADHESIVE TAPE. REVIEW OF SYSTEMS: As per HPI. Other systems negative. PHYSICAL EXAMINATION: Patient is comfortable, awake. She is not in any acute distress. Blood pressure this morning was 99/44, heart rate 69 per minute. She is afebrile. EXAMINATION OF THE HEART: S1 and S2. EXAMINATION OF LUNGS: Bilateral breath sounds are heard. ABDOMEN: Soft, non-tender. Examination of lower extremities shows no evidence of edema. 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 Labs show this morning hemoglobin 6.1, sodium 120, potassium 5.2, BUN 52, serum creatinine 1.6 mg/dL. ASSESSMENT: 1. Hyponatremia secondary to underlying chronic liver disease as well as possibly a hypovolemic component. Serum sodium has improved with normal saline. Patient is advised to continue to have her labs monitored as outpatient. She wants to go home today. I have advised her to hold off on the Aldactone, given the hyperkalemia, and patient is scheduled to see us in the office in about 2 days' time. 2. Mild hyperkalemia associated with acute kidney injury and use of Aldactone as well as secondary to hypotension. Patient is maintained on saline. We will repeat labs again as outpatient. 3. Metabolic acidosis secondary to acute kidney injury. 4. Anemia with hemoglobin at 6.1 g/dL. Rule out underlying GI bleed. PLAN: Hold off on Aldactone if patient decides to go home. She will follow up as outpatient in 2 days' time. We will repeat electrolytes. Her hemoglobin is also low, and this will need to be monitored for any active GI bleed. MMODL / IJN: [id number] /
--- NOTE | 2018-11-28 23:32 | P.HPIM ---
History of Present Illness H&P Date: 11/28/18 48-year-old female history of liver disease with recurrent ascites presents from outpatient surgery after paracentesis for evaluation of bilateral red abnormalities. Patient was noted to have low sodium, sent to the ER for repeat lab testing and further evaluation. Patient has no complaint, she does not want to be in the emergency department. She will allow repeat blood testing at upon initial evaluation refuses any other evaluation and definitely refuses admission if this is required. She has no specific complaints, she's hungry, no nausea or vomiting, no pain, no chest pain or dyspnea. Review of Systems GENERAL: Patient denies fever. Denies chills. EYES: Denies blurred vision. Denies vision changes. Denies eye pain. EARS, NOSE, MOUTH, & THROAT: Denies headache. Denies sore throat. Denies ear pain. RESPIRATORY: Denies cough. Denies shortness of breath. Denies sputum production. Denies hemoptysis. CARDIOVASCULAR: Denies chest pain or pressure. Denies palpitations. Denies arrhythmias. GASTROINTESTINAL: Denies abdominal pain. Denies diarrhea. Denies constipation. Denies nausea. Denies vomiting. Denies heartburn. Denies blood in the stool. Admits to ascites fluid accumulation with weekly paracentesis. 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 Denies burning. Denies dysuria. Denies cloudy urine. Denies blood in the urine. MUSCULOSKELETAL: Denies myalgias. Admits to joint swelling. Denies decreased range of motion beyond patients baseline. INTEGUMENTARY: Denies pruitis. Denies rash. PSYCHIATRIC: Denies suicidal or homicial ideations. ENDOCRINE: Admits to weight change. Denies polydipsia. Denies polyuria. HEMATOLOGIC: Admits to bleeding disorders. Past Medical History Past Medical History: GI Bleed, Liver Disease Additional Past Medical History / Comment(s): ascites,"hernia", gi bleed/anemia -required blood transfusions History of Any Multi-Drug Resistant Organisms: None Reported Past Surgical History: Bariatric Surgery, Section Additional Past Surgical History / Comment(s): gastric bypass in 2002, recurrent paracentesis,colonoscopy, egd w/apc/variceal banding/bx Past Anesthesia/Blood Transfusion Reactions: No Reported Reaction Additional Past Anesthesia/Blood Transfusion Reaction / Comment(s): blood transfusions Past Psychological History: Anxiety Additional Psychological History / Comment(s): pt stated she lives with her son Smoking Status: Current every day smoker Past Alcohol Use History: Daily Additional Past Alcohol Use History / Comment(s): started smoking as teen smokes 1/2 ppd. pt stated she quit drinking 3 Past Drug Use History: None Reported - Past Family History Mother History Unknown: Yes Family Medical History: Congestive Heart Failure (CHF), COPD Father History Unknown: Yes Family Medical History: Diabetes Mellitus Medications and Allergies Home Medications Medication Instructions Recorded Confirmed Type Gabapentin [Neurontin] 100 mg PO TID #90 cap 09/05/18 11/27/18 Rx Furosemide [Lasix] 40 mg PO DAILY PRN 10/09/18 11/27/18 History Sodium Bicarbonate Tab 650 mg PO BID 10/09/18 11/27/18 History Lactulose [Cephulac] 30 gm PO DAILY ml 10/22/18 11/27/18 Rx Midodrine [ProAmatine] 10 mg PO AC-TID tab 10/22/18 11/27/18 Rx ALPRAZolam [Xanax] 0.5 mg PO Q8HR PRN 11/06/18 11/27/18 History Spironolactone [Aldactone] 150 mg PO DAILY PRN 11/06/18 11/27/18 History Allergies Allergy/AdvReac Type Severity Reaction Status Date / Time adhesive tape Allergy Rash/Hives Verified 11/27/18 16:29 Physical Exam Osteopathic Statement: *. No significant issues noted on an osteopathic structural exam other than those noted in the History and Physical/Consult. Vitals: Vital Signs Temp Pulse Resp BP Pulse Ox 11/28/18 12:00 72 18 96/44 99 11/28/18 08:30 98 F 69 18 99/44 100 11/28/18 04:00 98.2 F 80 17 98/44 97 11/28/18 00:00 98.2 F 70 18 99/45 100 Intake and Output 11/28/18 11/28/18 11/29/18 14:59 22:59 06:59 Intake Total 240 Output Total 2 Balance 238 Intake: Oral 240 Output: Urine 2 General appearance: alert, in no apparent distress Head exam: Present: atraumatic, normocephalic Eye exam: Present: normal appearance, PERRL ENT exam: Present: normal exam Neck exam: Present: normal inspection. Absent: tenderness Respiratory exam: Present: normal lung sounds bilaterally. Absent: respiratory distress, wheezes Cardiovascular Exam: Present: regular rate, normal rhythm GI/Abdominal exam: Present: soft, distended. Absent: tenderness, guarding, rebound Extremities exam: Present: normal inspection, normal capillary refill. Absent: pedal edema Neurological exam: Present: alert, oriented X3 Psychiatric exam: Present: normal affect, normal mood Skin exam: Present: warm, dry, intact. Absent: cyanosis, diaphoretic Results CBC & Chem 7: 11/28/18 06:00 11/28/18 06:00 Labs: Abnormal Lab Results - Last 24 Hours (Table) 11/28/18 11/28/18 Range/Units 06:00 06:00 RBC 2.24 L (3.80-5.40) m/uL Hgb 6.1 L* D (11.4-16.0) gm/dL Hct 19.4 L* (34.0-46.0) % RDW 16.8 H (11.5-15.5) % Sodium 120 L (137-145) mmol/L Potassium 5.2 H (3.5-5.1) mmol/L Chloride 97 L (98-107) mmol/L Carbon Dioxide 17 L (22-30) mmol/L BUN 52 H (7-17) mg/dL Creatinine 1.66 H (0.52-1.04) mg/dL Glucose 71 L (74-99) mg/dL Calcium 7.5 L (8.4-10.2) mg/dL Magnesium 2.5 H (1.6-2.3) mg/dL Total Protein 4.5 L (6.3-8.2) g/dL Albumin 2.1 L (3.5-5.0) g/dL Thrombosis Risk Factor Assmnt - Choose All That Apply Any of the Below Risk Factors Present?: Yes Each Factor Represents 1 point: Age 41-60 years Other Risk Factors: Yes Thrombosis Risk Factor Assessment Total Risk Factor Score: 1 Thrombosis Risk Factor Assessment Level: Low Risk Assessment and Plan (1) Chronic kidney disease, stage V requiring chronic dialysis Status: Acute Code(s): N18.6 - END STAGE RENAL DISEASE; Z99.2 - DEPENDENCE ON RENAL DIALYSIS SNOMED Code(s): 678512612 (2) Alcoholic hepatitis with ascites Status: Acute Code(s): K70.11 - ALCOHOLIC HEPATITIS WITH ASCITES SNOMED Code(s): 523615845 (3) Anemia Status: Acute Code(s): D64.9 - ANEMIA, UNSPECIFIED SNOMED Code(s): 669858177 (4) Ascites Status: Acute Code(s): R18.8 - OTHER ASCITES SNOMED Code(s): 273593542 (5) Cirrhosis Status: Acute Code(s): K74.60 - UNSPECIFIED CIRRHOSIS OF LIVER SNOMED Code(s): 74522988 (6) Hyponatremia Status: Acute Code(s): E87.1 - HYPO-OSMOLALITY AND HYPONATREMIA SNOMED Code(s): 50366637 (7) Morbid obesity with BMI of 45.0-49.9, adult Status: Chronic Code(s): E66.01 - MORBID (SEVERE) OBESITY DUE TO EXCESS CALORIES; Z68.42 - BODY MASS INDEX (BMI) 45.0-49.9, ADULT SNOMED Code(s): 923477915 (8) History of Willie-en-Y gastric bypass Status: Resolved Code(s): Z98.84 - BARIATRIC SURGERY STATUS SNOMED Code(s): 484376704 Plan: Plan; patient was admitted by nephrology service for her severe hyponatremia she is adamant about going home today she states she feels the best she's felt a long time and she has no symptoms of her hyponatremia. Her last level sodium was 122. Of note she still is chronically anemic but relatively asymptomatic. She is given a discussed case with nephrology as soon as they come around and then she'll be discharged with the above medications and follow-ups in place. She is currently a Monday dialysis. She also gets therapeutic paracentesis scheduled weekly which the take off between 8 and 11 L of fluid. Please count this is history of physical and discharge summary same day. Time with Patient: Greater than 30
== END 2018-11-28 14:36 | disposition home or self-care (01) ==
LOC: EC 16:24 → 3SCARD 17:43
PROVIDERS: ADMIT Family Medicine; ATTEND Family Medicine
DX: N18.6 End stage renal disease (principal); K70.11 Alcoholic hepatitis with ascites; E87.1 Hypo-osmolality and hyponatremia; K76.6 Portal hypertension; E87.5 Hyperkalemia; D64.9 Anemia, unspecified; N17.9 Acute kidney failure, unspecified; E87.2 Acidosis; I95.9 Hypotension, unspecified; K74.60 Unspecified cirrhosis of liver; F41.9 Anxiety disorder, unspecified; E66.01 Morbid (severe) obesity due to excess calories; Z68.42 Body mass index [BMI] 45.0-49.9, adult; F17.210 Nicotine dependence, cigarettes, uncomplicated; T50.0X5A Adverse effect of mineralocorticoids and their antagonists, initial encounter; Z79.899 Other long term (current) drug therapy; Z91.048 Other nonmedicinal substance allergy status; Z87.19 Personal history of other diseases of the digestive system; Z99.2 Dependence on renal dialysis; Z98.84 Bariatric surgery status; Z82.5 Family history of asthma and other chronic lower respiratory diseases; Z82.49 Family history of ischemic heart disease and other diseases of the circulatory system; Z83.3 Family history of diabetes mellitus
CPT/HCPCS: 96365; 99285; 36415 ×2; 80053 ×2; 80048; 83735; 85025 ×2; 85610; 49083; G0378 ×2; P9047

== ENCOUNTER 2018-12-04 13:13 | Day surgery (SDC) | payer OTHER ==
[2018-12-04 13:58] VITALS: TEMP 97.4
[2018-12-04] MEDS: ALBUMIN HUMAN 25% 50 ML in EMPTY BAG 1 BAG IVPB SCH ×4 (13:59→16:02)
[2018-12-04 14:03] LABS: Mean Platelet Volume 6.8; Platelet Count 304 k/uL (150-450)
[2018-12-04 14:12] LABS: Calcium 8.2 mg/dL (8.4-10.2); Potassium 5.5 mmol/L (3.5-5.1)
[2018-12-04 14:32] LABS: INR 1.1 (<1.2); Prothrombin Time 11.3 sec (9.0-12.0)
--- NOTE | 2018-12-04 16:21 | US ---
EXAMINATION TYPE: US paracentesis abd w/image DATE OF EXAM: 12/04/2018 COMPARISON: NONE HISTORY: Ascites. PROCEDURE: Maximal barrier technique was utilized. The skin overlying a suitable pocket of fluid was localized with ultrasound and the overlying skin was prepped and draped. Ultrasound was utilized with sterile technique. Lidocaine was used for local anesthesia and a skin angelo made with a scalpel. Catheter was advanced under direct ultrasound guidance into a suitable pocket of fluid and approximately 10.5 lite rs of serous fluid were removed. Catheter was withdrawn and hemostasis achieved. There is no immedi ate complication; the patient is discharged in stable condition. IMPRESSION: STATUS POST ULTRASOUND GUIDED PARACENTESIS FOR PALLIATION OF ASCITES. THIS PROCEDURE WA S PERFORMED BY THE UNDERSIGNED.
[2018-12-04 16:35] VITALS: BP 96/49; PULSE 71; RESP 14
== END 2018-12-04 16:40 | disposition home or self-care (01) ==
LOC: RADPROMAIN 13:13
DX: R18.8 Other ascites (principal); E87.1 Hypo-osmolality and hyponatremia
CPT/HCPCS: 80048; 85049; 85610; 49083; P9047

== ENCOUNTER 2018-12-11 12:22 | Day surgery (SDC) | payer OTHER ==
[2018-12-11 13:05] LABS: Mean Platelet Volume 7.5; Platelet Count 287 k/uL (150-450)
[2018-12-11 13:11] LABS: INR 1.1 (<1.2); Prothrombin Time 11.4 sec (9.0-12.0)
[2018-12-11] MEDS: ALBUMIN HUMAN 25% 50 ML in EMPTY BAG 1 BAG IVPB SCH ×4 (13:15→14:30)
[2018-12-11 14:23] VITALS: TEMP 98.1
[2018-12-11 14:30] LABS: Calcium 8.3 mg/dL (8.4-10.2)
[2018-12-11 15:11] VITALS: BP 90/46; PULSE 68; RESP 16
--- NOTE | 2018-12-11 15:22 | US ---
Therapeutic paracentesis. DATE OF EXAM: 12/11/2018 CLINICAL HISTORY: Ascites The procedure was discussed with the patient. The risks, complications, benefits, and alternatives we re discussed and any questions were answered. Informed consent was obtained. The patient was placed s upine on the ultrasound table and prepped and draped in the usual sterile fashion. All elements of maximal barrier technique were utilized. Under ultrasound guidance, access into the right lower quadrant was obtained, via the paracentesis catheter system and direct ultrasound guidanc e. Approximately 9.3 liters of straw-colored fluid was removed. The patient was stable throughout the pr ocedure and remained stable upon discharge from Department of Radiology. IMPRESSION: Successful therapeutic paracentesis under ultrasound guidance.
== END 2018-12-11 15:09 | disposition home or self-care (01) ==
LOC: RADPROMAIN 12:22
DX: R18.8 Other ascites (principal)
CPT/HCPCS: 80048; 82565; 85049; 85610; 36415; 49083; P9047

== ENCOUNTER 2018-12-18 17:28 | Emergency (ER) | payer OTHER ==
[2018-12-18] MEDS: ALBUMIN HUMAN 25% 50 ML in EMPTY BAG 1 BAG IVPB SCH ×4 (13:25→15:02)
[2018-12-18 13:39] LABS: Mean Platelet Volume 7.6; Platelet Count 204 k/uL (150-450)
[2018-12-18 13:47] LABS: Calcium 8.1 mg/dL (8.4-10.2); Potassium 5.1 mmol/L (3.5-5.1)
[2018-12-18 13:54] LABS: INR 1.2 (<1.2); Prothrombin Time 12.8 sec (9.0-12.0)
--- NOTE | 2018-12-18 16:18 | US ---
EXAMINATION TYPE: US paracentesis abd w/image DATE OF EXAM: 12/18/2018 COMPARISON: NONE HISTORY: Ascites. PROCEDURE: Maximal barrier technique was utilized. The skin overlying a suitable pocket of fluid was localized with ultrasound and the overlying skin was prepped and draped. Ultrasound was utilized with sterile technique. Lidocaine was used for local anesthesia and a skin angelo made with a scalpel. Catheter was advanced under direct ultrasound guidance into a suitable pocket of fluid and approximately 7.1 liter s of serous fluid were removed. Catheter was withdrawn and hemostasis achieved. There is no immedia te complication; the patient is discharged in stable condition. IMPRESSION: STATUS POST ULTRASOUND GUIDED PARACENTESIS FOR PALLIATION OF ASCITES. THIS PROCEDURE WA S PERFORMED BY THE UNDERSIGNED.
[~2018-12-18 17:28] MED LIST: ALBUMIN HUMAN 25% 50 ML in EMPTY BAG 1 BAG IVPB ONE; MIDODRINE 5 MG TAB PO STA
[2018-12-18 17:40] VITALS: BP 95/54; PULSE 85; RESP 18; TEMP 97.9
== END 2018-12-18 18:39 | disposition left against medical advice (07) ==
LOC: EC 17:28
DX: Z03.89 Encounter for observation for other suspected diseases and conditions ruled out (principal)
CPT/HCPCS: 49083; 80048; 85049; 85610; 99499

== ENCOUNTER 2018-12-25 12:26 | Day surgery (SDC) | payer OTHER ==
[2018-12-25] MEDS ORDERED: MIDODRINE 5 MG TAB PO ONE (13:15)
[2018-12-25 13:21] VITALS: TEMP 98
[2018-12-25 13:26] LABS: Mean Platelet Volume 7.4; Platelet Count 200 k/uL (150-450)
[2018-12-25] MEDS: ALBUMIN HUMAN 25% 50 ML in EMPTY BAG 1 BAG IVPB SCH ×6 (13:26→15:03)
[2018-12-25 13:51] LABS: INR 1.1 (<1.2)
[2018-12-25 15:27] LABS: Calcium 8.5 mg/dL (8.4-10.2); Potassium 5.6 mmol/L (3.5-5.1)
[2018-12-25 16:19] VITALS: BP 88/46; PULSE 68; RESP 16
--- NOTE | 2018-12-27 07:54 | US ---
Therapeutic paracentesis. DATE OF EXAM: 12/25/2018 CLINICAL HISTORY: Ascites The procedure was discussed with the patient. The risks, complications, benefits, and alternatives we re discussed and any questions were answered. Informed consent was obtained. The patient was placed s upine on the ultrasound table and prepped and draped in the usual sterile fashion. Patient's blood pr essure was low but had procedure performed week prior with no complications. Case was discussed with referring physician felt that was necessary for the patient proceeded. Patient also wishes to proceed . Blood pressure remained stable throughout the procedure and upon discharge from the Department of r adiology. All elements of maximal barrier technique were utilized. Under ultrasound guidance, access into the right lower quadrant was obtained, via the paracentesis catheter system and direct ultrasound guidanc e. Approximately 7.3 liters of straw-colored fluid was removed. The patient was stable throughout the pr ocedure and remained stable upon discharge from Department of Radiology. IMPRESSION: Successful therapeutic paracentesis under ultrasound guidance.
== END 2018-12-25 16:35 | disposition home or self-care (01) ==
LOC: RADPROMAIN 12:26
DX: R18.8 Other ascites (principal)
CPT/HCPCS: 80048; 82565; 85049; 85610; 36415; 49083; P9047

== ENCOUNTER 2018-12-25 18:42 | Inpatient (IN) | payer OTHER ==
[2018-12-25] MEDS ORDERED: SODIUM CHLORIDE 0.9% 500 ML 500 ML IV STA (19:21)
[2018-12-25] MEDS ORDERED: SODIUM CHLORIDE 0.9% 1,000 ML IV STA (19:21)
--- NOTE | 2018-12-25 19:37 | ED ---
Recheck HPI - General Chief Complaint: Recheck/Abnormal Lab/Rx Stated Complaint: low BP Source: patient, RN notes reviewed, old records reviewed Mode of arrival: wheelchair Limitations: no limitations - History of Present Illness Initial Comments: This is a 48-year-old female the ER for evaluation. Patient is significantly sick with history of liver disease also normal surgeries recurrent paracentesis. Patient does get paracentesis and ascites drainage she does get significantly low blood pressure. Paracentesis today. Patient feels weak. MD Complaint: other (abnormal BP) -: hour(s) Returns Today for: other (weakness) Symptoms Since Prior Visit: worsening pain (weakness) Context: called for abnormal lab result Associated Symptoms: none Treatments Prior to Arrival: other (paracentesis) - Related Data Home Medications Medication Instructions Recorded Confirmed Furosemide [Lasix] 40 mg PO BID 10/09/18 12/25/18 Sodium Bicarbonate Tab 650 mg PO BID 10/09/18 12/25/18 ALPRAZolam [Xanax] 0.5 mg PO Q8HR PRN 11/06/18 12/25/18 Spironolactone 150 mg PO DAILY PRN 12/25/18 12/25/18 Previous Rx's Medication Instructions Recorded Gabapentin [Neurontin] 100 mg PO TID #90 cap 09/05/18 Lactulose [Cephulac] 30 gm PO DAILY ml 10/22/18 Midodrine [ProAmatine] 10 mg PO AC-TID tab 10/22/18 Allergies Allergy/AdvReac Type Severity Reaction Status Date / Time adhesive tape Allergy Rash/Hives Verified 12/25/18 19:56 Review of Systems ROS Statement: Those systems with pertinent positive or pertinent negative responses have been documented in the HPI. ROS Other: All systems not noted in ROS Statement are negative. Past Medical History Past Medical History: GI Bleed, Liver Disease Additional Past Medical History / Comment(s): ascites,"hernia", gi bleed/anemia -required blood transfusions, weekly paracentesis History of Any Multi-Drug Resistant Organisms: None Reported Past Surgical History: Bariatric Surgery, Section Additional Past Surgical History / Comment(s): gastric bypass in 2002, recurrent paracentesis,colonoscopy, egd w/apc/variceal banding/bx Past Anesthesia/Blood Transfusion Reactions: No Reported Reaction Additional Past Anesthesia/Blood Transfusion Reaction / Comment(s): blood transfusions Past Psychological History: Anxiety Smoking Status: Current every day smoker Past Alcohol Use History: Daily Past Drug Use History: None Reported - Past Family History Mother History Unknown: Yes Family Medical History: Congestive Heart Failure (CHF), COPD Father History Unknown: Yes Family Medical History: Diabetes Mellitus General Exam Limitations: no limitations General appearance: alert, in no apparent distress Head exam: Present: atraumatic, normocephalic, normal inspection Eye exam: Present: normal appearance, PERRL, EOMI. Absent: scleral icterus, conjunctival injection, periorbital swelling ENT exam: Present: normal exam, mucous membranes moist Neck exam: Present: normal inspection. Absent: tenderness, meningismus, lymphadenopathy Respiratory exam: Present: normal lung sounds bilaterally. Absent: respiratory distress, wheezes, rales, rhonchi, stridor Cardiovascular Exam: Present: regular rate, normal rhythm, normal heart sounds. Absent: systolic murmur, diastolic murmur, rubs, gallop, clicks GI/Abdominal exam: Present: soft, normal bowel sounds. Absent: distended, tenderness, guarding, rebound, rigid Extremities exam: Present: normal inspection, full ROM, normal capillary refill. Absent: tenderness, pedal edema, joint swelling, calf tenderness Back exam: Present: normal inspection Neurological exam: Present: alert, oriented X3, CN II-XII intact Psychiatric exam: Present: normal affect, normal mood Skin exam: Present: warm, dry, intact, normal color. Absent: rash Course Vital Signs 12/25/18 12/25/18 12/25/18 18:56 19:30 21:00 Temperature 97.6 F Pulse Rate 72 69 70 Respiratory 16 20 16 Rate Blood Pressure 83/47 85/28 104/43 O2 Sat by Pulse 100 Oximetry 12/25/18 12/25/18 12/25/18 22:33 22:35 22:43 Temperature 98.1 F 98.0 F Pulse Rate 80 75 74 Respiratory 16 16 20 Rate Blood Pressure 96/46 86/37 O2 Sat by Pulse 100 100 Oximetry 12/25/18 12/25/18 22:46 23:13 Temperature 98.1 F Pulse Rate 74 88 Respiratory 18 20 Rate Blood Pressure 101/50 O2 Sat by Pulse 100 Oximetry - Reevaluation(s) Reevaluation #1: 12/25/18 19:42 Medical record is reviewed Medical Decision Making - Medical Decision Making 48 female the ER with history of chronic disease coming in with severe anemia history of GI bleed, liver failure secondary to cirrhosis. Patient will admit for transfusion - Lab Data Result diagrams: 12/26/18 10:38 12/25/18 19:40 Lab Results 12/25/18 12/25/18 12/25/18 Range/Units 19:40 19:40 19:40 WBC 4.9 (3.8-10.6) k/uL RBC 2.01 L (3.80-5.40) m/uL Hgb 5.4 L* (11.4-16.0) gm/dL Hct 17.0 L* (34.0-46.0) % MCV 84.7 (80.0-100.0) fL MCH 27.1 (25.0-35.0) pg MCHC 32.0 (31.0-37.0) g/dL RDW 15.8 H (11.5-15.5) % Plt Count 158 (150-450) k/uL Neutrophils % 66 % Lymphocytes % 16 % Monocytes % 12 % Eosinophils % 3 % Basophils % 1 % Neutrophils # 3.2 (1.3-7.7) k/uL Lymphocytes # 0.8 L (1.0-4.8) k/uL Monocytes # 0.6 (0-1.0) k/uL Eosinophils # 0.2 (0-0.7) k/uL Basophils # 0.0 (0-0.2) k/uL Hypochromasia Moderate PT (9.0-12.0) sec INR (<1.2) APTT (22.0-30.0) sec Sodium 124 L (137-145) mmol/L Potassium 5.1 (3.5-5.1) mmol/L Chloride 100 (98-107) mmol/L Carbon Dioxide 14 L (22-30) mmol/L Anion Gap 10 mmol/L BUN 71 H (7-17) mg/dL Creatinine 2.39 H (0.52-1.04) mg/dL Est GFR (CKD-EPI)AfAm 27 (>60 ml/min/1.73 sqM) Est GFR (CKD-EPI)NonAf 23 (>60 ml/min/1.73 sqM) Glucose 87 (74-99) mg/dL Lactic Ac Sepsis Rflx Plasma Lactic Acid Alex 2.2 H* (0.7-2.0) mmol/L Calcium 8.5 (8.4-10.2) mg/dL Phosphorus 5.4 H (2.5-4.5) mg/dL Magnesium 2.7 H (1.6-2.3) mg/dL Total Bilirubin 0.9 (0.2-1.3) mg/dL AST 30 (14-36) U/L ALT 19 (9-52) U/L Alkaline Phosphatase 76 (38-126) U/L Ammonia 164 H (<30) umol/L Troponin I (0.000-0.034) ng/mL Total Protein 5.5 L (6.3-8.2) g/dL Albumin 3.0 L (3.5-5.0) g/dL 12/25/18 12/25/18 12/25/18 Range/Units 19:40 19:40 20:16 WBC (3.8-10.6) k/uL RBC (3.80-5.40) m/uL Hgb (11.4-16.0) gm/dL Hct (34.0-46.0) % MCV (80.0-100.0) fL MCH (25.0-35.0) pg MCHC (31.0-37.0) g/dL RDW (11.5-15.5) % Plt Count (150-450) k/uL Neutrophils % % Lymphocytes % % Monocytes % % Eosinophils % % Basophils % % Neutrophils # (1.3-7.7) k/uL Lymphocytes # (1.0-4.8) k/uL Monocytes # (0-1.0) k/uL Eosinophils # (0-0.7) k/uL Basophils # (0-0.2) k/uL Hypochromasia PT 15.2 H (9.0-12.0) sec INR 1.5 H (<1.2) APTT 33.0 H (22.0-30.0) sec Sodium (137-145) mmol/L Potassium (3.5-5.1) mmol/L Chloride (98-107) mmol/L Carbon Dioxide (22-30) mmol/L Anion Gap mmol/L BUN (7-17) mg/dL Creatinine (0.52-1.04) mg/dL Est GFR (CKD-EPI)AfAm (>60 ml/min/1.73 sqM) Est GFR (CKD-EPI)NonAf (>60 ml/min/1.73 sqM) Glucose (74-99) mg/dL Lactic Ac Sepsis Rflx Y Plasma Lactic Acid Alex (0.7-2.0) mmol/L Calcium (8.4-10.2) mg/dL Phosphorus (2.5-4.5) mg/dL Magnesium (1.6-2.3) mg/dL Total Bilirubin (0.2-1.3) mg/dL AST (14-36) U/L ALT (9-52) U/L Alkaline Phosphatase (38-126) U/L Ammonia (<30) umol/L Troponin I <0.012 (0.000-0.034) ng/mL Total Protein (6.3-8.2) g/dL Albumin (3.5-5.0) g/dL - Radiology Data Radiology results: report reviewed (Chest x-rays negative for acute disease), image reviewed Disposition Clinical Impression: Acute blood loss anemia, Anemia, ARF (acute renal failure), Weakness Disposition: ADMITTED IP TO THIS HOSP Condition: Fair Is patient prescribed a controlled substance at d/c from ED?: No
[2018-12-25 20:04] LABS: Basophils % (A) 1 %; Eosinophils # (A) 0.2 k/uL (0-0.7); Eosinophils % (A) 3 %; Hypochromasia Moderate; Lymphocytes # (A) 0.8 k/uL (1.0-4.8); Lymphocytes % (A) 16 %; MCH 27.1 pg (25.0-35.0); MCV 84.7 fL (80.0-100.0); Mean Platelet Volume 7.5; Monocytes # (A) 0.6 k/uL (0-1.0); Monocytes % (A) 12 %; Neutrophils # (A) 3.2 k/uL (1.3-7.7); Neutrophils % (A) 66 %; Platelet Count 158 k/uL (150-450); RBC 2.01 m/uL (3.80-5.40); RDW 15.8 % (11.5-15.5); WBC 4.9 k/uL (3.8-10.6)
[2018-12-25 20:08] LABS: INR 1.5 (<1.2); Prothrombin Time 15.2 sec (9.0-12.0)
[2018-12-25 20:10] LABS: Calcium 8.5 mg/dL (8.4-10.2); Magnesium 2.7 mg/dL (1.6-2.3); Phosphorus 5.4 mg/dL (2.5-4.5); Potassium 5.1 mmol/L (3.5-5.1); Total Bilirubin 0.9 mg/dL (0.2-1.3); Total Protein 5.5 g/dL (6.3-8.2)
[2018-12-25 20:16] LABS: HGB 5.4 gm/dL (11.4-16.0); Lactic Acid, Venous 2.2 mmol/L (0.7-2.0)
[2018-12-25] MEDS ORDERED: IPRATROPIUM-ALBUTEROL 3 ML NEB INHALATION STA (22:15)
--- NOTE | 2018-12-25 23:05 | XR ---
EXAM: XR Chest, 2 Views CLINICAL HISTORY: ITS.REASON XR Reason: Pain TECHNIQUE: Frontal and lateral views of the chest. COMPARISON: 10/13/18 FINDINGS: Lungs: Unremarkable. No consolidation. Pleural space: Unremarkable. No pneumothorax. Heart: Unremarkable. No cardiomegaly. Mediastinum: Unremarkable. Bones/joints: Unremarkable. IMPRESSION: No acute findings
[2018-12-25] MEDS ORDERED: FUROSEMIDE 10 MG/ML 4 ML VIAL IV STA (23:30)
[2018-12-26] MEDS: FUROSEMIDE 40 MG TAB PO SCH ×3 (01:15→21:49)
[2018-12-26 05:32] LABS: Appearance,Urine Clear (Clear); Bilirubin,Urine Negative (Negative); Blood,Urine Negative (Negative); Color,Urine Yellow; Glucose,Urine (UA) Negative (Negative); Ketones,Urine Negative (Negative); Leukocyte Esterase,Urine Negative (Negative); Nitrite,Urine Negative (Negative); Protein,Urine Negative (Negative); Specific Gravity,Urine 1.012 (1.001-1.035); Urobilinogen,Urine <2.0 mg/dL (<2.0)
[2018-12-26] MEDS: LACTULOSE 20 GM/30 ML CUP PO SCH (08:07)
[2018-12-26 13:33] LABS: HCT 24.8 % (34.0-46.0); Hypochromasia Moderate; MCHC 32.2 g/dL (31.0-37.0); MCV 86.9 fL (80.0-100.0); Platelet Count 132 k/uL (150-450); Poikilocytosis Slight; RBC 2.86 m/uL (3.80-5.40); RDW 15.7 % (11.5-15.5); WBC 4.2 k/uL (3.8-10.6)
--- NOTE | 2018-12-26 17:16 | P.HPIM ---
History of Present Illness H&P Date: 12/26/18 Chief Complaint: Weakness, hypotension 48-year-old female history of liver disease with recurrent ascites presents from outpatient surgery after paracentesis for evaluation of hypotension, anemia, hyponatremia. Patient is status post paracentesis with 6.6 L removed. Hemoglo bin 5.4 on admission. Receiving 3 units of packed RBCs .patient wheezy after blood products, IV push Lasix administered 1 with caution related to hypotension . Systolic blood pressure 87/53 on admission ,Received 1500 MLS IV fluid bolus.currently 101/61 .creatinine 2.39 .She has no specific complaints, she's hungry, no nausea or vomiting, no pain, no chest pain or dyspnea. T-max 99. Maintaining O2 sats of 99% on room air. Systolic blood pressure ranging from high 80s to low 100s. Review of Systems GENERAL: Patient denies fever. Denies chills. EYES: Denies blurred vision. Denies vision changes. Denies eye pain. EARS, NOSE, MOUTH, & THROAT: Denies headache. Denies sore throat. Denies ear pain. RESPIRATORY: Denies cough. Denies shortness of breath. Denies sputum production. Denies hemoptysis. CARDIOVASCULAR: Denies chest pain or pressure. Denies palpitations. Denies arrhythmias. GASTROINTESTINAL: Denies abdominal pain. Denies diarrhea. Denies constipation. Denies nausea. Denies vomiting. Denies heartburn. Denies blood in the stool. Admits to ascites fluid accumulation with weekly paracentesis. 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 Denies burning. Denies dysuria. Denies cloudy urine. Denies blood in the urine. MUSCULOSKELETAL: Denies myalgias. Admits to joint swelling. Denies decreased range of motion beyond patients baseline. INTEGUMENTARY: Denies pruitis. Denies rash. PSYCHIATRIC: Denies suicidal or homicial ideations. ENDOCRINE: Admits to weight change. Denies polydipsia. Denies polyuria. HEMATOLOGIC: Admits to bleeding disorders. Past Medical History Past Medical History: GI Bleed, Liver Disease Additional Past Medical History / Comment(s): ascites,"hernia", gi bleed/anemia -required blood transfusions, weekly paracentesis History of Any Multi-Drug Resistant Organisms: None Reported Past Surgical History: Bariatric Surgery, Section Additional Past Surgical History / Comment(s): gastric bypass in 2002, recurrent paracentesis,colonoscopy, egd w/apc/variceal banding/bx Past Anesthesia/Blood Transfusion Reactions: No Reported Reaction Additional Past Anesthesia/Blood Transfusion Reaction / Comment(s): blood transfusions Past Psychological History: Anxiety Additional Psychological History / Comment(s): pt stated she lives with her son Smoking Status: Current every day smoker Past Alcohol Use History: Daily Additional Past Alcohol Use History / Comment(s): started smoking as teen smokes 1/2 ppd. pt stated she quit drinking 11-18-17 Past Drug Use History: None Reported - Past Family History Mother History Unknown: Yes Family Medical History: Congestive Heart Failure (CHF), COPD Father History Unknown: Yes Family Medical History: Diabetes Mellitus Medications and Allergies Home Medications Medication Instructions Recorded Confirmed Type Gabapentin [Neurontin] 100 mg PO TID #90 cap 09/05/18 12/25/18 Rx Furosemide [Lasix] 40 mg PO BID 10/09/18 12/25/18 History Sodium Bicarbonate Tab 650 mg PO BID 10/09/18 12/25/18 History Lactulose [Cephulac] 30 gm PO DAILY ml 10/22/18 12/25/18 Rx Midodrine [ProAmatine] 10 mg PO AC-TID tab 10/22/18 12/25/18 Rx ALPRAZolam [Xanax] 0.5 mg PO Q8HR PRN 11/06/18 12/25/18 History Spironolactone 150 mg PO DAILY PRN 12/25/18 12/25/18 History Allergies Allergy/AdvReac Type Severity Reaction Status Date / Time adhesive tape Allergy Rash/Hives Verified 12/25/18 19:56 Physical Exam Vitals: Vital Signs Temp Pulse Pulse Resp BP BP Pulse Ox 12/26/18 10:20 98.4 F 90 16 104/54 12/26/18 07:00 79 17 93/60 99 12/26/18 06:34 68 16 87/50 100 12/26/18 06:04 69 16 97/56 100 12/26/18 05:54 68 16 93/54 100 12/26/18 05:45 97.4 F L 71 16 88/56 100 12/26/18 04:38 99.0 F 82 16 100/54 100 12/26/18 04:29 69 16 81/38 100 12/26/18 03:55 80 16 100/70 99 12/26/18 02:17 77 16 89/51 100 12/26/18 01:47 66 16 79/45 100 12/26/18 01:37 98.5 F 67 17 89/56 100 12/26/18 01:06 97.8 F 73 16 95/59 100 12/26/18 00:46 98.5 F 74 18 94/59 100 12/26/18 00:00 97.8 F 80 16 87/53 100 12/25/18 23:13 98.1 F 88 20 101/50 100 12/25/18 22:46 74 18 12/25/18 22:43 98.0 F 74 20 86/37 100 12/25/18 22:35 75 16 12/25/18 22:33 98.1 F 80 16 96/46 100 12/25/18 21:00 70 16 104/43 12/25/18 19:30 69 20 85/28 12/25/18 18:56 97.6 F 72 16 83/47 100 Intake and Output 12/25/18 12/26/18 12/26/18 22:59 06:59 14:59 Intake Total 0 1240 310 Output Total 300 Balance 0 940 310 Intake: Blood Product 0 1240 310 Rc As-1 Unit 310 [id number] Rc Pheresis 2 As3 Unit 0 310 [id number] Rc Pheresis As-3 Unit 0 310 [id number] Output: Urine 300 Other: # Voids 1 Weight 107.955 kg General appearance: alert, in no apparent distress Head exam: Present: atraumatic, normocephalic Eye exam: Present: normal appearance, PERRL ENT exam: Present: normal exam Neck exam: Present: normal inspection. Absent: tenderness Respiratory exam: Present: normal lung sounds bilaterally. Absent: respiratory distress, wheezes Cardiovascular Exam: Present: regular rate, normal rhythm GI/Abdominal exam: Present: soft, distended. Absent: tenderness, guarding, rebound Extremities exam: Present: normal inspection, normal capillary refill. Absent: pedal edema Neurological exam: Present: alert, oriented X3 Psychiatric exam: Present: normal affect, normal mood Skin exam: Present: warm, dry, intact. Absent: cyanosis, diaphoretic Results CBC & Chem 7: 12/26/18 10:38 12/25/18 19:40 Labs: Abnormal Lab Results - Last 24 Hours (Table) 12/25/18 12/25/18 12/25/18 Range/Units 19:40 19:40 19:40 RBC 2.01 L (3.80-5.40) m/uL Hgb 5.4 L* (11.4-16.0) gm/dL Hct 17.0 L* (34.0-46.0) % RDW 15.8 H (11.5-15.5) % Lymphocytes # 0.8 L (1.0-4.8) k/uL PT (9.0-12.0) sec INR (<1.2) APTT (22.0-30.0) sec Sodium 124 L (137-145) mmol/L Carbon Dioxide 14 L (22-30) mmol/L BUN 71 H (7-17) mg/dL Creatinine 2.39 H (0.52-1.04) mg/dL Plasma Lactic Acid Alex 2.2 H* (0.7-2.0) mmol/L Phosphorus 5.4 H (2.5-4.5) mg/dL Magnesium 2.7 H (1.6-2.3) mg/dL Ammonia 164 H (<30) umol/L Total Protein 5.5 L (6.3-8.2) g/dL Albumin 3.0 L (3.5-5.0) g/dL Crossmatch 12/25/18 12/25/18 Range/Units 19:40 21:10 RBC (3.80-5.40) m/uL Hgb (11.4-16.0) gm/dL Hct (34.0-46.0) % RDW (11.5-15.5) % Lymphocytes # (1.0-4.8) k/uL PT 15.2 H (9.0-12.0) sec INR 1.5 H (<1.2) APTT 33.0 H (22.0-30.0) sec Sodium (137-145) mmol/L Carbon Dioxide (22-30) mmol/L BUN (7-17) mg/dL Creatinine (0.52-1.04) mg/dL Plasma Lactic Acid Alex (0.7-2.0) mmol/L Phosphorus (2.5-4.5) mg/dL Magnesium (1.6-2.3) mg/dL Ammonia (<30) umol/L Total Protein (6.3-8.2) g/dL Albumin (3.5-5.0) g/dL Crossmatch See Detail Microbiology - Last 24 Hours (Table) 12/25/18 14:15 Gram Stain - Preliminary Ascites Fluid Body Fluid Culture - Preliminary 12/25/18 14:15 Anaerobic Culture - Preliminary Ascites Fluid Thrombosis Risk Factor Assmnt - Choose All That Apply Any of the Below Risk Factors Present?: Yes Each Factor Represents 1 point: Age 41-60 years Thrombosis Risk Factor Assessment Total Risk Factor Score: 1 Thrombosis Risk Factor Assessment Level: Low Risk Assessment and Plan Assessment: -Acute on Chronic blood loss anemia secondary to possibly varices secondary to liver disease , status post transfusion of 3 units packed RBCs -Acute on chronic renal failure, stage IV -Ascites, status post paracentesis 6.6 L, in a patient who requires weekly paracentesis -Hypovolemic hyponatremia secondary to intravascular volume depletion fluid r/t paracentesis -Hypotension secondary to the above without shock -Cirrhosis.alcohol liver -Morbid obesity, BMI 36.2 -History of Willie-en-Y gastric bypass -History of GI bleed -Anxiety -Ongoing nicotine dependence -Ongoing daily alcohol abuse Plan: Continue on current medication regime ,monitoring and symptomatic treatment. Receiving 3 units of packed RBCs, cautious with IV Lasix after transfusions related to hypotension. Maintain oral Lasix. Close monitoring of renal function, hemoglobin, electrolytes with repeat labs ordered in a.m. smoking and drinking cessation readdressed. Patient adamant about going home as soon as possible. Prognosis guarded, given multiple complex medical issues. Will discuss CODE STATUS as well. Further recommendations to follow. The impression and plan of care has been dictated as directed. : I performed a history and examination of this patient, discussed the same with the dictator. I agree with the dictator's note ,documented as a scribe. Any additional findings or plans will be noted.
[2018-12-26] MEDS: PANTOPRAZOLE 40 MG/10 ML VIAL IVP SCH (18:04)
[2018-12-27] MEDS: ALPRAZolam 0.5 MG TAB PO PRN (05:00)
[2018-12-27] MEDS: PANTOPRAZOLE 40 MG/10 ML VIAL IVP SCH (08:01)
[2018-12-27] MEDS: FUROSEMIDE 40 MG TAB PO SCH ×2 (08:01→20:31)
[2018-12-27] MEDS: LACTULOSE 20 GM/30 ML CUP PO SCH (08:01)
[2018-12-27 08:52] LABS: Anisocytosis Slight; Basophils % (A) 1 %; Eosinophils # (A) 0.1 k/uL (0-0.7); Eosinophils % (A) 3 %; HCT 26.2 % (34.0-46.0); HGB 8.6 gm/dL (11.4-16.0); Hypochromasia Slight; Lymphocytes % (A) 19 %; MCH 27.9 pg (25.0-35.0); MCHC 32.8 g/dL (31.0-37.0); MCV 85.1 fL (80.0-100.0); Mean Platelet Volume 7.5; Monocytes # (A) 0.5 k/uL (0-1.0); Monocytes % (A) 9 %; Neutrophils # (A) 3.6 k/uL (1.3-7.7); Neutrophils % (A) 67 %; Platelet Count 145 k/uL (150-450); Poikilocytosis Slight; RBC 3.08 m/uL (3.80-5.40); RDW 16.1 % (11.5-15.5); WBC 5.3 k/uL (3.8-10.6)
[2018-12-27 10:44] LABS: Potassium 4.5 mmol/L (3.5-5.1)
--- NOTE | 2018-12-27 15:52 | P.PN ---
Subjective Progress Note Date: 12/27/18 48-year-old female history of liver disease with recurrent ascites presents from outpatient surgery after paracentesis for evaluation of hypotension, anemia, hyponatremia. Patient is status post paracentesis with 6.6 L removed. Hemoglobin 5.4 on admission. Receiving 3 units of packed RBCs .patient wheezy after blood products, IV push Lasix administered 1 with caution related to hypotension . Systolic blood pressure 87/53 on admission ,Received 1500 MLS IV fluid bolus.currently 101/61 .creatinine 2.39 .She has no specific complaints, she's hungry, no nausea or vomiting, no pain, no chest pain or dyspnea. T-max 99. Maintaining O2 sats of 99% on room air. Systolic blood pressure ranging from high 80s to low 100s. Significant clinical improvement. Status post 3 units of packed RBCs. Labs pending. Systolic blood pressure currently remains in the low 100s. Denies chest pain, palpitations or increasing shortness of breath. She denies lightheadedness dizziness or focal deficits. Eager for discharge home. Objective - Vital Signs Vital signs: Vital Signs Temp 97.4 F L 12/27/18 14:59 Pulse 69 12/27/18 14:59 Resp 16 12/27/18 14:59 BP 87/55 12/27/18 14:59 Pulse Ox 100 12/27/18 14:59 Intake & Output 12/26/18 12/27/18 12/27/18 18:59 06:59 18:59 Intake Total 310 Balance 310 Intake: Blood Product 310 Rc Pheresis As-3 Unit 310 [id number] Other: # Voids 3 1 - Exam General appearance: alert and oriented 3, no acute distress Head exam: Present: atraumatic, normocephalic Eye exam: Present: normal appearance, PERRL ENT exam: Present: normal exam Neck exam: Present: normal inspection. Absent: tenderness Respiratory exam: Present: normal lung sounds bilaterally. Absent: respiratory distress, wheezes Cardiovascular Exam: Present: regular rate, normal rhythm GI/Abdominal exam: Present: soft, distended. Absent: tenderness, guarding, rebound Extremities exam: Present: normal inspection, normal capillary refill. Absent: pedal edema Neurological exam: Present: alert, oriented X3. No focal deficits Psychiatric exam: Present: normal affect, anxious Skin exam: Present: warm, dry, intact. Absent: cyanosis, diaphoretic - Labs CBC & Chem 7: 12/27/18 08:16 12/27/18 08:16 Labs: Abnormal Lab Results - Last 24 Hours (Table) 12/27/18 12/27/18 Range/Units 08:16 08:16 RBC 3.08 L (3.80-5.40) m/uL Hgb 8.6 L (11.4-16.0) gm/dL Hct 26.2 L (34.0-46.0) % RDW 16.1 H (11.5-15.5) % Plt Count 145 L (150-450) k/uL Sodium 127 L (137-145) mmol/L Carbon Dioxide 13 L (22-30) mmol/L BUN 68 H (7-17) mg/dL Creatinine 2.19 H (0.52-1.04) mg/dL Microbiology - Last 24 Hours (Table) 12/25/18 14:15 Gram Stain - Preliminary Ascites Fluid Body Fluid Culture - Preliminary Gram Neg Bacilli Assessment and Plan Assessment: -Acute on Chronic blood loss anemia secondary to possibly varices secondary to liver disease , status post transfusion of 3 units packed RBCs; mostly chronic -Acute on chronic renal failure, stage IV -Ascites, status post paracentesis 6.6 L, in a patient who requires weekly paracentesis -Hypovolemic hyponatremia secondary to intravascular volume depletion fluid r/t paracentesis -Hypotension secondary to the above without shock -Cirrhosis.alcohol liver -Morbid obesity, BMI 36.2 -History of Iwllie-en-Y gastric bypass -History of GI bleed -Anxiety -Ongoing nicotine dependence -Ongoing daily alcohol abuse Plan: Continue on current medication regime ,monitoring and symptomatic treatment. anxious during the night, prn Xanax added to med regime Patient adamant about going home as soon as possible. Labs pending. Systolic blood pressures stable currently, recheck this afternoon. Discharge planning in progress for today pending improvement in labs and vital signs remain stable. Further recommendations to follow. The impression and plan of care has been dictated as directed. : I performed a history and examination of this patient, discussed the same with the dictator. I agree with the dictator's note ,documented as a scribe. Any additional findings or plans will be noted.
[2018-12-28 06:55] LABS: Anisocytosis Slight; Basophils % (A) 0 %; Eosinophils # (A) 0.1 k/uL (0-0.7); Eosinophils % (A) 2 %; HCT 27.2 % (34.0-46.0); HGB 8.5 gm/dL (11.4-16.0); Hypochromasia Slight; Lymphocytes # (A) 0.8 k/uL (1.0-4.8); Lymphocytes % (A) 13 %; MCH 26.9 pg (25.0-35.0); MCHC 31.2 g/dL (31.0-37.0); MCV 86.1 fL (80.0-100.0); Mean Platelet Volume 7.4; Monocytes # (A) 0.5 k/uL (0-1.0); Monocytes % (A) 8 %; Neutrophils # (A) 4.5 k/uL (1.3-7.7); Neutrophils % (A) 75 %; Platelet Count 154 k/uL (150-450); RBC 3.16 m/uL (3.80-5.40); RDW 16.3 % (11.5-15.5)
[2018-12-28 07:10] LABS: Potassium 4.9 mmol/L (3.5-5.1)
[2018-12-28] MEDS: FUROSEMIDE 40 MG TAB PO SCH ×2 (09:32→17:23)
[2018-12-28] MEDS: GABAPENTIN 100 MG CAP PO SCH ×3 (09:33→22:16)
[2018-12-28] MEDS: LACTULOSE 20 GM/30 ML CUP PO SCH (09:33)
[2018-12-28] MEDS: PANTOPRAZOLE 40 MG TABLET PO SCH (09:33)
[2018-12-28] MEDS: SODIUM BICARBONATE TAB 650 MG TAB PO SCH ×2 (09:33→22:16)
[2018-12-28] MEDS: SPIRONOLACTONE 25 MG TAB PO PRN (09:39)
[2018-12-28 10:45] LABS: Magnesium 2.5 mg/dL (1.6-2.3); Phosphorus 5.1 mg/dL (2.5-4.5)
--- NOTE | 2018-12-28 16:22 | P.PN ---
Subjective Progress Note Date: 12/28/18 48-year-old female history of liver disease with recurrent ascites presents from outpatient surgery after paracentesis for evaluation of hypotension, anemia, hyponatremia. Patient is status post paracentesis with 6.6 L removed. Hemoglobin 5.4 on admission. Receiving 3 units of packed RBCs .patient wheezy after blood products, IV push Lasix administered 1 with caution related to hypotension . Systolic blood pressure 87/53 on admission ,Received 1500 MLS IV fluid bolus.currently 101/61 .creatinine 2.39 .She has no specific complaints, she's hungry, no nausea or vomiting, no pain, no chest pain or dyspnea. T-max 99. Maintaining O2 sats of 99% on room air. Systolic blood pressure ranging from high 80s to low 100s. 12/27/18 Significant clinical improvement. Status post 3 units of packed RBCs. Labs pending. Systolic blood pressure currently remains in the low 100s. Denies chest pain, palpitations or increasing shortness of breath. She denies lightheadedness dizziness or focal deficits. Eager for discharge home. 12/28/2018 Creatinine unchanged, 2.2. Sodium slowly trending up, 128. Systolic blood pressure currently in the 90s. Paracentesis fluid testing positive for E. coli .Afebrile, normal WBC. Ammonia level down to 52, on lactulose. Hemoglobin 8.5. Denies chest pain, palpitations or shortness of breath. Good diet intake, denies abdominal pain. Objective - Vital Signs Vital signs: Vital Signs Temp 98.3 F 12/28/18 14:39 Pulse 81 12/28/18 14:39 Resp 18 12/28/18 14:39 BP 96/51 12/28/18 14:39 Pulse Ox 100 12/28/18 14:39 Intake & Output 12/27/18 12/28/18 12/28/18 18:59 06:59 18:59 Other: # Voids 1 1 0 # Bowel Movements 1 - Exam General appearance: alert and oriented 3, no acute distress Head exam: Present: atraumatic, normocephalic Eye exam: Present: normal appearance, PERRL ENT exam: Present: normal exam Neck exam: Present: normal inspection. Absent: tenderness Respiratory exam: Present: normal lung sounds bilaterally. Absent: respiratory distress, wheezes Cardiovascular Exam: Present: regular rate, normal rhythm GI/Abdominal exam: Present: soft, distended. Absent: tenderness, guarding, rebound Extremities exam: Present: normal inspection, normal capillary refill. Absent: pedal edema Neurological exam: Present: alert, oriented X3. No focal deficits Psychiatric exam: Present: normal affect, anxious Skin exam: Present: warm, dry, intact. Absent: cyanosis, diaphoretic Microbiology 12/25/18 14:15 Ascites Fluid Anaerobic Culture - Preliminary 12/25/18 14:15 Ascites Fluid Gram Stain - Final 12/25/18 14:15 Ascites Fluid Body Fluid Culture - Final Escherichia coli - Labs CBC & Chem 7: 12/28/18 06:37 12/28/18 06:37 Labs: Abnormal Lab Results - Last 24 Hours (Table) 12/28/18 12/28/18 12/28/18 Range/Units 06:37 06:37 06:37 RBC 3.16 L (3.80-5.40) m/uL Hgb 8.5 L (11.4-16.0) gm/dL Hct 27.2 L (34.0-46.0) % RDW 16.3 H (11.5-15.5) % Lymphocytes # 0.8 L (1.0-4.8) k/uL Sodium 128 L (137-145) mmol/L Carbon Dioxide 15 L (22-30) mmol/L BUN 66 H (7-17) mg/dL Creatinine 2.20 H (0.52-1.04) mg/dL Phosphorus 5.1 H (2.5-4.5) mg/dL Magnesium 2.5 H (1.6-2.3) mg/dL Ammonia 52 H (<30) umol/L Microbiology - Last 24 Hours (Table) 12/25/18 14:15 Anaerobic Culture - Preliminary Ascites Fluid 12/25/18 14:15 Gram Stain - Final Ascites Fluid Body Fluid Culture - Final Escherichia coli Assessment and Plan Assessment: -Acute on Chronic blood loss anemia secondary to possibly varices secondary to liver disease , status post transfusion of 3 units packed RBCs; mostly chronic -Acute on chronic renal failure, stage IV -Ascites, status post paracentesis 6.6 L, in a patient who requires weekly paracentesis. peritoneal Fluid positive for E. coli. -Hypovolemic hyponatremia secondary to intravascular volume depletion fluid r/t paracentesis -Hypotension secondary to the above without shock -Cirrhosis.alcohol liver -Morbid obesity, BMI 36.2 -History of Willie-en-Y gastric bypass -History of GI bleed -Anxiety -Ongoing nicotine dependence -Ongoing daily alcohol abuse Plan: Continue on current medication regime ,monitoring and symptomatic treatment. Antibiotics initiated, ID consulted .Further recommendations to follow. Close monitoring of hemoglobin, electrolytes, renal function with repeat labs ordered for a.m. The impression and plan of care has been dictated as directed. : I performed a history and examination of this patient, discussed the same with the dictator. I agree with the dictator's note ,documented as a scribe. Any additional findings or plans will be noted.
--- NOTE | 2018-12-28 23:21 | P.CONS ---
History of Present Illness - Reason for Consult Consult date: 12/28/18 E. coli spontaneous bacterial peritonitis Requesting physician: Srinivas Jones - Chief Complaint Abdominal pain - History of Present Illness Patient is 48-year-old female with past medical history significant for alcoholic cirrhosis with a history of recurrent ascites requiring paracentesis every week, the patient did have a paracentesis performed on 12/25/2018 by interventional radiology at that time the patient was noticed to have a hypotension hence she was advised to go to the ER , patient did went to [employer] for dinner and subsequently went to the ER , patient was noticed to be hypotensive with a systolic of 87 she did not have any fever or elevated white count subsequently the patient has been admitted to hospital for further management of the same the paracentesis fluid that was obtained cultures are now growing E. coli that prompted this infection this consultation. Patient has been complaining of abdominal pain which is chronic for her denies any recent worsening more daily aching pain 4-5 out of 10 and no radiation the patient denies any nausea no vomiting she did have diarrhea from the legs today she is receiving denies any chest pain shortness of breath or cough and no urinary symptoms Review of Systems Positive points has been mentioned in HPI rest of the the systems are negative Past Medical History Past Medical History: GI Bleed, Liver Disease Additional Past Medical History / Comment(s): ascites,"hernia", gi bleed/anemia -required blood transfusions, weekly paracentesis History of Any Multi-Drug Resistant Organisms: None Reported Past Surgical History: Bariatric Surgery, Section Additional Past Surgical History / Comment(s): gastric bypass in 2002, recurrent paracentesis,colonoscopy, egd w/apc/variceal banding/bx Past Anesthesia/Blood Transfusion Reactions: No Reported Reaction Additional Past Anesthesia/Blood Transfusion Reaction / Comm: blood transfusions Past Psychological History: Anxiety Smoking Status: Current every day smoker Past Alcohol Use History: Daily Past Drug Use History: None Reported - Past Family History Mother History Unknown: Yes Family Medical History: Congestive Heart Failure (CHF), COPD Father History Unknown: Yes Family Medical History: Diabetes Mellitus Medications and Allergies Home Medications Medication Instructions Recorded Confirmed Type Gabapentin [Neurontin] 100 mg PO TID #90 cap 09/05/18 12/25/18 Rx Furosemide [Lasix] 40 mg PO BID 10/09/18 12/25/18 History Sodium Bicarbonate Tab 650 mg PO BID 10/09/18 12/25/18 History Lactulose [Cephulac] 30 gm PO DAILY ml 10/22/18 12/25/18 Rx Midodrine [ProAmatine] 10 mg PO AC-TID tab 10/22/18 12/25/18 Rx ALPRAZolam [Xanax] 0.5 mg PO Q8HR PRN 11/06/18 12/25/18 History Spironolactone 150 mg PO DAILY PRN 12/25/18 12/25/18 History Allergies Allergy/AdvReac Type Severity Reaction Status Date / Time adhesive tape Allergy Rash/Hives Verified 12/25/18 19:56 Physical Exam Vitals: Vital Signs Temp Pulse Resp BP BP Pulse Ox 12/28/18 20:58 98.2 F 82 16 87/51 98 12/28/18 14:39 98.3 F 81 18 96/51 100 12/28/18 07:00 97.6 F 71 17 101/62 100 12/28/18 00:29 97.8 F 78 15 99/58 99 Intake and Output 12/28/18 12/28/18 12/29/18 14:59 22:59 06:59 Other: # Voids 0 GENERAL DESCRIPTION: Middle-aged female up in bed, no distress. No tachypnea or accessory muscle of respiration use. HEENT: Shows Pallor , no scleral icterus. Oral mucous membrane is dry. No pharyngeal erythema or thrush NECK: Trachea central, no thyromegaly. LUNGS: Unlabored breathing. Clear to auscultation anteriorly. No wheeze or crackle. HEART: S1, S2, regular rate and rhythm. No loud murmur ABDOMEN: Soft, mild distention ,no tenderness , guarding or rigidity, no organomegaly EXTREMITIES: No edema of feet. SKIN: No rash, no masses palpable. NEUROLOGICAL: The patient is awake, alert, oriented x3, mood and affect normal. Results CBC & Chem 7: 12/28/18 06:37 12/28/18 06:37 Labs: Abnormal Lab Results - Last 24 Hours (Table) 12/28/18 12/28/18 12/28/18 Range/Units 06:37 06:37 06:37 RBC 3.16 L (3.80-5.40) m/uL Hgb 8.5 L (11.4-16.0) gm/dL Hct 27.2 L (34.0-46.0) % RDW 16.3 H (11.5-15.5) % Lymphocytes # 0.8 L (1.0-4.8) k/uL Sodium 128 L (137-145) mmol/L Carbon Dioxide 15 L (22-30) mmol/L BUN 66 H (7-17) mg/dL Creatinine 2.20 H (0.52-1.04) mg/dL Phosphorus 5.1 H (2.5-4.5) mg/dL Magnesium 2.5 H (1.6-2.3) mg/dL Ammonia 52 H (<30) umol/L Microbiology - Last 24 Hours (Table) 12/25/18 14:15 Anaerobic Culture - Preliminary Ascites Fluid Assessment and Plan Assessment: 1-patient with a history of alcoholic cirrhosis and recurrent ascites requiring weekly paracentesis now with a culture positive for E. coli likely indicating secondary bacterial peritonitis, which is a sensitive pathogen 2-patient with no fever or systemic system to be concern for secondary bacteremia (1) Spontaneous bacterial peritonitis Current Visit: Yes Status: Acute Code(s): K65.2 - SPONTANEOUS BACTERIAL PERITONITIS SNOMED Code(s): 09984299 Plan: 1-Rocephin 2 g IV piggyback daily while the patient is in the hospital and be transitioned to oral antibiotics on discharge 2-we will follow-up on her clinical condition to further adjust her medication if needed Time with Patient: Greater than 30
[2018-12-29] MEDS: FUROSEMIDE 40 MG TAB PO SCH ×2 (07:29→16:24)
[2018-12-29] MEDS: GABAPENTIN 100 MG CAP PO SCH ×3 (07:29→22:20)
[2018-12-29] MEDS: LACTULOSE 20 GM/30 ML CUP PO SCH (07:30)
[2018-12-29] MEDS: PANTOPRAZOLE 40 MG TABLET PO SCH (07:30)
[2018-12-29] MEDS: SODIUM BICARBONATE TAB 650 MG TAB PO SCH ×2 (07:30→22:20)
[2018-12-29 11:09] LABS: Anisocytosis Slight; HCT 25.2 % (34.0-46.0); HGB 7.6 gm/dL (11.4-16.0); Hypochromasia Slight; MCH 26.8 pg (25.0-35.0); MCHC 30.3 g/dL (31.0-37.0); MCV 88.3 fL (80.0-100.0); Mean Platelet Volume 7.5; Platelet Count 120 k/uL (150-450); RBC 2.85 m/uL (3.80-5.40); RDW 16.6 % (11.5-15.5); WBC 5.9 k/uL (3.8-10.6)
[2018-12-29] MEDS: ALPRAZolam 0.5 MG TAB PO PRN (11:17)
--- NOTE | 2018-12-29 19:17 | PN ---
PROGRESS NOTE DATE OF SERVICE: 12/29/2018. REASON FOR FOLLOWUP: The E coli, spontaneous bacterial peritonitis. INTERVAL HISTORY: The patient is currently afebrile. The patient is breathing comfortably. Denies having any chest pain. She has been noted to be slightly agitated this morning for which the patient has received a dose of Xanax. Subsequently noticed to be more lethargic. No nausea, vomiting, or any diarrhea reported by the nursing staff. PHYSICAL EXAMINATION: Blood pressure is 107/70 with a pulse of 75, temperature 98.2. She is 100% on room air. General description is a middle aged female lying in bed in no distress. RESPIRATORY SYSTEM: Unlabored breathing, some upper airway rhonchi. HEART S1, S2. Regular rate and rhythm. ABDOMEN: Soft, mildly distended. No guarding or rigidity. LABS: Hemoglobin 7.6, white count 5.9. Creatinine is 2.20. DIAGNOSTIC IMPRESSION AND PLAN: Patient with E coli, culture positive from the ascitic fluid in this patient who did have a history of alcoholic cirrhosis with bacterial peritonitis. Patient has been started on Rocephin 2 g daily which will continue for now. Will monitor clinical course closely. Continue supportive care. MMODL / IJN: [id number] /
[2018-12-29] MEDS: NYSTATIN 100,000 UNIT/GM POWD 15 GM TOPICAL SCH (22:25)
[2018-12-30] MEDS: SODIUM BICARBONATE TAB 650 MG TAB PO SCH ×2 (07:19→22:30)
[2018-12-30] MEDS: GABAPENTIN 100 MG CAP PO SCH ×3 (07:19→22:30)
[2018-12-30] MEDS: FUROSEMIDE 40 MG TAB PO SCH ×2 (07:19→16:58)
[2018-12-30] MEDS: PANTOPRAZOLE 40 MG TABLET PO SCH (07:19)
[2018-12-30] MEDS: LACTULOSE 20 GM/30 ML CUP PO SCH (07:24)
[2018-12-30] MEDS: NYSTATIN 100,000 UNIT/GM POWD 15 GM TOPICAL SCH ×2 (07:28→22:30)
[2018-12-30 07:52] LABS: Anisocytosis Slight; Basophils % (A) 1 %; Eosinophils # (A) 0.2 k/uL (0-0.7); Eosinophils % (A) 4 %; HCT 22.6 % (34.0-46.0); HGB 7.4 gm/dL (11.4-16.0); Hypochromasia Slight; Lymphocytes # (A) 0.9 k/uL (1.0-4.8); Lymphocytes % (A) 17 %; MCHC 32.9 g/dL (31.0-37.0); MCV 85.3 fL (80.0-100.0); Mean Platelet Volume 7.5; Monocytes # (A) 0.4 k/uL (0-1.0); Monocytes % (A) 8 %; Neutrophils # (A) 3.6 k/uL (1.3-7.7); Neutrophils % (A) 69 %; Platelet Count 121 k/uL (150-450); RBC 2.65 m/uL (3.80-5.40); WBC 5.2 k/uL (3.8-10.6)
[2018-12-30 08:02] LABS: Albumin 2.4 g/dL (3.5-5.0); Calcium 7.9 mg/dL (8.4-10.2); Potassium 4.3 mmol/L (3.5-5.1); Total Bilirubin 0.8 mg/dL (0.2-1.3); Total Protein 4.9 g/dL (6.3-8.2)
[2018-12-30] MEDS: IPRATROPIUM-ALBUTEROL 3 ML NEB INHALATION PRN (11:54)
--- NOTE | 2018-12-30 15:07 | P.PN ---
Subjective Progress Note Date: 12/29/18 Principal diagnosis: Acute on chronic blood loss anemia Covering for Dr. Jones over the weekend 48-year-old male with alcohol his liver cirrhosis Current and site is coming in with a chief complaint of shortness of breath. Patient is status post 6.6 L of acetic fluid removed and after that had increased shortness of breath and so came into the hospital for further evaluation. Patient's hemoglobin was 5.4 and she has been transfused with 3 units of PRBCs. Her hemoglobin has been stable around 8 and this morning it is 7.6. Today the patient is lying in the bed comfortably. She states that she still has mild difficulty in breathing. She complains of cough that is dry in nature. Denies having any chest pain or palpitations. Patient states that her last alcohol consumption was 1 year ago. She denies having any abdominal pain nausea vomiting or diarrhea. She just had a bowel movement denies having any blood in her stool. No dysuria or hematuria. Denies having any dizziness or lightheadedness. Patient's medications and labs have been reviewed. Active Medications Albuterol/Ipratropium (Duoneb 0.5 Mg-3 Mg/3 Ml Soln) 3 ml INHALATION RT-QID PRN PRN Reason: Shortness Of Breath Or Wheezing Alprazolam (Xanax) 0.5 mg PO Q8HR PRN PRN Reason: Anxiety Last Admin: 12/29/18 11:17 Dose: 0.5 mg Documented by: Furosemide (Lasix) 40 mg PO BID@0900,1600 PENDING SALE TO [facility] Last Admin: 12/29/18 16:24 Dose: 40 mg Documented by: Gabapentin (Neurontin) 100 mg PO TID PENDING SALE TO [facility] Last Admin: 12/29/18 16:25 Dose: 100 mg Documented by: Ceftriaxone Sodium 2 gm/ (Sodium Chloride) 50 mls @ 100 mls/hr IVPB Q24HR PENDING SALE TO [facility] Last Admin: 12/29/18 07:32 Dose: 100 mls/hr Documented by: Lactulose (Cephulac) 30 gm PO DAILY PENDING SALE TO [facility] Last Admin: 12/29/18 07:30 Dose: 30 gm Documented by: Pantoprazole Sodium (Protonix) 40 mg PO AC-BRKFST PENDING SALE TO [facility] Last Admin: 12/29/18 07:30 Dose: 40 mg Documented by: Sodium Bicarbonate (Sodium Bicarbonate Tab) 650 mg PO BID PENDING SALE TO [facility] Last Admin: 04/13/19 07:30 Dose: 650 mg Documented by: Spironolactone (Aldactone) 150 mg PO DAILY PRN PRN Reason: LEG EDEMA Last Admin: 12/28/18 09:39 Dose: 150 mg Documented by: Objective - Vital Signs Vital signs: Vital Signs Temp 98.2 F 12/29/18 15:00 Pulse 75 12/29/18 15:00 Resp 16 12/29/18 15:00 BP 88/53 12/29/18 15:00 Pulse Ox 99 12/29/18 15:00 Intake & Output 12/28/18 12/29/18 12/29/18 18:59 06:59 18:59 Other: Voiding Method Toilet Toilet # Voids 0 1 - Exam GENERAL EXAM GEN. APPEARANCE: alert, in no apparent distress HEAD EXAM: atraumatic, normocephalic, normal inspection EYE EXAM: Pupils round and reactive to light. NECK EXAM: normal inspection. Absent: tenderness, meningismus, full ROM, lymphadenopathy RESPIRATORY EXAM: A breath sounds are positive. No wheezes or crackles. CARDIOVASCULAR EXAM: regular rate, normal rhythm, normal heart sounds. Absent: systolic murmur, diastolic murmur, rubs, gallop, clicks GI/ABDOMINAL EXAM: Abdomen is distended. Patient has redness in the right groin area in the folds of her thigh and hanging abdominal wall areas. EXTREMITIES EXAM: Bilateral pitting edema. NEUROLOGICAL EXAM: alert, oriented X3, focal deficits PSYCHIATRIC EXAM: normal affect, normal mood. - Labs CBC & Chem 7: 12/29/18 10:41 12/28/18 06:37 Labs: Abnormal Lab Results - Last 24 Hours (Table) 12/29/18 Range/Units 10:41 RBC 2.85 L (3.80-5.40) m/uL Hgb 7.6 L (11.4-16.0) gm/dL Hct 25.2 L (34.0-46.0) % MCHC 30.3 L (31.0-37.0) g/dL RDW 16.6 H (11.5-15.5) % Plt Count 120 L (150-450) k/uL Assessment and Plan Assessment: ASSESSMENT Acute on chronic blood loss anemia - possible cause for variceal bleeding from liver cirrhosis Alcoholic liver cirrhosis with recurrent ascites Hyponatremia - beer potomania Hypertension probably secondary to acute blood loss Obesity with BMI of 36.2 History of GI bleed Ongoing nicotine dependence Ongoing daily alcohol abuse Candidiasis in the right groin area History of Willie-en-Y gastric bypass Acute on chronic renal failure CK D stage IV Plan: Patient received 3 units of PRBCs since hospital admission. Her hemoglobin has been stable around 8. This morning patient's hemoglobin is around 7.6. She was also found to have E. coli growing from her ascetic fluid. She is currently on ceftriaxone as per DERRICK Rowan's recommendation. Continue with the current medication regimen. Overall prognosis is guarded. Further recommendations to follow depending on the progress of the patient.
--- NOTE | 2018-12-30 15:11 | P.PN ---
Subjective Progress Note Date: 12/30/18 Principal diagnosis: Acute on chronic blood loss anemia Covering for Dr. Jones over the weekend. 48-year-old male with alcohol his liver cirrhosis coming in with a chief complaint of shortness of breath. Patient is status post 6.6 L of acetic fluid removed and after that had increased shortness of breath and so came into the hospital for further evaluation. Patient's hemoglobin was 5.4 and she has been transfused with 3 units of PRBCs. Her hemoglobin has been stable around 8 . The patient is sitting up in a chair besides her bed having her lunch. No acute distress. Patient's hemoglobin has been stable at 7.4 today. Creatinine also around her baseline. She states that the nystatin powder is helping her with acromion irritation. On review of systems Constitutional - generalized fatigue and weakness. No fever or chills. Cardiac - no chest pain or palpitations Respiratory - mild cough which is dry in nature. No difficulty in breathing. - no dysuria or hematuria GI - abdominal distention. No abdominal pain. No nausea vomiting or diarrhea or constipation. Active Medications Generic Name Dose Route Start Last Admin Trade Name Freq PRN Reason Stop Dose Admin Albuterol/Ipratropium 3 ml 12/28/18 14:31 12/30/18 11:54 Duoneb 0.5 Mg-3 Mg/3 Ml Soln INHALATION 3 ml RT-QID PRN Administration Shortness Of Breath Or Wheezing Alprazolam 0.5 mg 12/27/18 04:53 12/29/18 11:17 Xanax PO 0.5 mg Q8HR PRN Administration Anxiety Furosemide 40 mg 12/28/18 09:00 12/30/18 07:19 Lasix PO 40 mg BID@0900,1600 DOMINIQUE Administration Gabapentin 100 mg 12/28/18 09:00 12/30/18 07:19 Neurontin PO 100 mg TID DOMINIQUE Administration Ceftriaxone Sodium 2 gm/ 50 mls @ 100 mls/hr 12/28/18 17:00 12/30/18 07:19 Sodium Chloride IVPB 100 mls/hr Q24HR DOMINIQUE Administration Lactulose 30 gm 12/28/18 09:00 12/30/18 07:24 Cephulac PO 30 gm DAILY DOMINIQUE Administration Nystatin 1 applic 12/29/18 21:00 12/30/18 07:28 Mycostatin Powder TOPICAL 1 applic BID DOMINIQUE Administration Pantoprazole Sodium 40 mg 12/28/18 07:30 12/30/18 07:19 Protonix PO 40 mg AC-BRKFST DOMINIQUE Administration Sodium Bicarbonate 650 mg 12/28/18 09:00 12/30/18 07:19 Sodium Bicarbonate Tab PO 650 mg BID DOMINIQUE Administration Spironolactone 150 mg 12/28/18 07:29 12/28/18 09:39 Aldactone PO 150 mg DAILY PRN Administration LEG EDEMA Objective - Vital Signs Vital signs: Vital Signs Temp 98.1 F 12/30/18 14:55 Pulse 87 12/30/18 14:55 Resp 15 12/30/18 14:55 BP 95/60 12/30/18 14:55 Pulse Ox 100 12/30/18 14:55 Intake & Output 12/29/18 12/30/18 12/30/18 18:59 06:59 18:59 Other: Voiding Method Toilet Toilet # Voids 0 2 # Bowel Movements 1 - Exam GEN. APPEARANCE: alert, in no apparent distress HEAD EXAM: atraumatic, normocephalic, normal inspection EYE EXAM: Pupils round and reactive to light. NECK EXAM: normal inspection. Absent: tenderness, meningismus, full ROM, lymphadenopathy RESPIRATORY EXAM: A breath sounds are positive. No wheezes or crackles. CARDIOVASCULAR EXAM: regular rate, normal rhythm, normal heart sounds. Absent: systolic murmur, diastolic murmur, rubs, gallop, clicks GI/ABDOMINAL EXAM: Abdomen is distended. Patient has redness in the right groin area in the folds of her thigh and hanging abdominal wall areas. EXTREMITIES EXAM: Bilateral pitting edema. NEUROLOGICAL EXAM: alert, oriented X3, no focal focal deficits PSYCHIATRIC EXAM: normal affect, normal mood. - Labs CBC & Chem 7: 12/30/18 06:53 12/30/18 06:53 Labs: Abnormal Lab Results - Last 24 Hours (Table) 12/30/18 12/30/18 Range/Units 06:53 06:53 RBC 2.65 L (3.80-5.40) m/uL Hgb 7.4 L (11.4-16.0) gm/dL Hct 22.6 L (34.0-46.0) % RDW 17.0 H (11.5-15.5) % Plt Count 121 L (150-450) k/uL Lymphocytes # 0.9 L (1.0-4.8) k/uL Sodium 129 L (137-145) mmol/L Carbon Dioxide 15 L (22-30) mmol/L BUN 64 H (7-17) mg/dL Creatinine 2.19 H (0.52-1.04) mg/dL Calcium 7.9 L (8.4-10.2) mg/dL Total Protein 4.9 L (6.3-8.2) g/dL Albumin 2.4 L (3.5-5.0) g/dL Microbiology - Last 24 Hours (Table) 12/25/18 14:15 Anaerobic Culture - Final Ascites Fluid Assessment and Plan Assessment: ASSESSMENT Acute on chronic blood loss anemia - possible cause for variceal bleeding from liver cirrhosis Alcoholic liver cirrhosis with recurrent ascites Hyponatremia - beer potomania Hypertension probably secondary to acute blood loss Obesity with BMI of 36.2 History of GI bleed Ongoing nicotine dependence Ongoing daily alcohol abuse Candidiasis in the right groin area History of Willie-en-Y gastric bypass Acute on chronic renal failure CK D stage IV Plan: Patient received 3 units of PRBCs since hospital admission. Her hemoglobin has been stable around 7 - 8. She was also found to have E. coli growing from her ascetic fluid. She is currently on ceftriaxone as per DERRICK Rowan's recommendation. Continue with the current medication regimen. Overall prognosis is guarded. Dr. Avilez to follow the patient from tomorrow.
[2018-12-30] MEDS ORDERED: BENZONATATE 100 MG CAP PO PRN (18:26)
[2018-12-30] MEDS ORDERED: CYCLOBENZAPRINE 5 MG TAB PO PRN (21:10)
--- NOTE | 2018-12-30 22:19 | PN ---
PROGRESS NOTE DATE OF SERVICE: 12/30/2018. REASON FOR FOLLOWUP: E coli spontaneous bacterial peritonitis. INTERVAL HISTORY: The patient is currently afebrile. The patient is breathing comfortably. However, the patient complaining of dry irritant cough, not bringing up any sputum. No chest pain. Denies any abdominal pain. No nausea, vomiting. PHYSICAL EXAMINATION: Blood pressure 95/60 with a pulse of 87, temperature 98.1. She is 100% on room air. General description is a middle aged female lying in bed in no distress. Respiratory system: Unlabored breathing. Decreased breath sounds at bases. No wheeze. Heart S1, S2. Regular rate and rhythm. Abdomen soft, no tenderness. LABS: Hemoglobin 7.4, white count 5.2, BUN of 64, creatinine is 2.19. DIAGNOSTIC IMPRESSION AND PLAN: Patient with spontaneous bacterial peritonitis, status post paracentesis. Culture positive for E coli. Patient currently covered with Rocephin that will be transitioned to oral antibiotics from Rocephin on discharge. Continue supportive care. MMODL / IJN: [id number] /
[2018-12-30] MEDS: SPIRONOLACTONE 25 MG TAB PO PRN (22:39)
[2018-12-31] MEDS: IPRATROPIUM-ALBUTEROL 3 ML NEB INHALATION PRN (08:47)
[2018-12-31] MEDS: LACTULOSE 20 GM/30 ML CUP PO SCH (09:45)
[2018-12-31] MEDS: FUROSEMIDE 40 MG TAB PO SCH ×2 (09:45→15:55)
[2018-12-31] MEDS: SODIUM BICARBONATE TAB 650 MG TAB PO SCH ×2 (09:45→21:57)
[2018-12-31] MEDS: NYSTATIN 100,000 UNIT/GM POWD 15 GM TOPICAL SCH ×2 (09:45→21:57)
[2018-12-31] MEDS: PANTOPRAZOLE 40 MG TABLET PO SCH (09:45)
[2018-12-31] MEDS: GABAPENTIN 100 MG CAP PO SCH ×3 (09:45→21:57)
[2018-12-31] MEDS ORDERED: IPRATROPIUM-ALBUTEROL 3 ML NEB INHALATION PRN (10:26)
--- NOTE | 2018-12-31 10:43 | P.PN ---
Subjective Progress Note Date: 12/31/18 48-year-old female history of liver disease with recurrent ascites presents from outpatient surgery after paracentesis for evaluation of hypotension, anemia, hyponatremia. Patient is status post paracentesis with 6.6 L removed. Hemoglobin 5.4 on admission. Receiving 3 units of packed RBCs .patient wheezy after blood products, IV push Lasix administered 1 with caution related to hypotension . Systolic blood pressure 87/53 on admission ,Received 1500 MLS IV fluid bolus.currently 101/61 .creatinine 2.39 .She has no specific complaints, she's hungry, no nausea or vomiting, no pain, no chest pain or dyspnea. T-max 99. Maintaining O2 sats of 99% on room air. Systolic blood pressure ranging from high 80s to low 100s. 12/27/18 Significant clinical improvement. Status post 3 units of packed RBCs. Labs pending. Systolic blood pressure currently remains in the low 100s. Denies chest pain, palpitations or increasing shortness of breath. She denies lightheadedness dizziness or focal deficits. Eager for discharge home. 12/28/2018 Creatinine unchanged, 2.2. Sodium slowly trending up, 128. Systolic blood pressure currently in the 90s. Paracentesis fluid testing positive for E. coli .Afebrile, normal WBC. Ammonia level down to 52, on lactulose. Hemoglobin 8.5. Denies chest pain, palpitations or shortness of breath. Good diet intake, denies abdominal pain. 12/29/2018 sensorium significantly improved. Ammonia down to 47, on lactulose. Maintained on IV Rocephin for spontaneous bacterial peritonitis. Patient's ascites increasing, normally receives weekly paracentesis on Monday. Minimal ambulation with in room to bathroom. Reports she sat up in chair yesterday. Denies chest pain, palpitations. Wheezing improving, on nebulized bronchodilators. Denies cough. Systolic blood pressure in the low 100s, labs pending. Afebrile, maintaining O2 sats of 100% on room air. Objective - Vital Signs Vital signs: Vital Signs Temp 98.0 F 12/31/18 07:28 Pulse 76 12/31/18 08:58 Resp 18 12/31/18 02:35 BP 102/64 12/31/18 07:28 Pulse Ox 100 12/31/18 08:47 Intake & Output 12/30/18 12/31/18 12/31/18 18:59 06:59 18:59 Weight 109 kg Other: Voiding Method Toilet Toilet # Voids 2 1 # Bowel Movements 1 1 - Exam General appearance: Sitting up in bed , no acute distress HEENT: atraumatic, normocephalic, PERRLA, no thyromegaly, oral mucosa moist Respiratory exam: Respiratory effort normal, bilateral bases diminished with improving expiratory wheeze Cardiovascular Exam: Present: regular rate, normal rhythm, no murmur, no gallop, no rub GI/Abdominal exam: Present: Firm, distended, positive ascites, abdominal f olds/bilateral groin with nystatin powder present, Absent: tenderness, guarding Extremities exam: Present: normal inspection, normal capillary refill. Absent: Improving pedal edema Neurological exam: Present: alert, oriented X3. No focal deficits Skin exam: Present: warm, dry, intact. Absent: cyanosis, diaphoretic Microbiology 12/25/18 14:15 Ascites Fluid Anaerobic Culture - Final 12/25/18 14:15 Ascites Fluid Gram Stain - Final 12/25/18 14:15 Ascites Fluid Body Fluid Culture - Final Escherichia coli - Labs CBC & Chem 7: 12/30/18 06:53 12/30/18 06:53 Labs: Abnormal Lab Results - Last 24 Hours (Table) 12/31/18 Range/Units 07:14 Ammonia 47 H (<30) umol/L Assessment and Plan Assessment: -Acute on Chronic 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 coli, status post paracentesis. -Acute on chronic renal failure, stage IV -Ascites, recurrent; status post paracentesis 6.6 L, in a patient who requires weekly paracentesis. -Hypovolemic hyponatremia secondary to intravascular volume depletion fluid r/t paracentesis -Hypotension secondary to the above without shock -Cirrhosis.alcohol liver -Morbid obesity, BMI 36.2 -History of Willie-en-Y gastric bypass -History of GI bleed -Anxiety -Ongoing nicotine dependence -Ongoing daily alcohol abuse -Candidiasis Plan: Continue on current medication regime ,monitoring and symptomatic treatment. Labs pending. Maintain IV antibiotics of Rocephin as per ID. Discussed repeat paracentesis with infectious disease; will schedule paracentesis for tomorrow along with cell count, differential and culture. Discharge planning in progress for tomorrow after tap, pending patient's response. Oral antibiotics planned for discharge .Further recommendations to follow. The impression and plan of care has been dictated as directed. : I performed a history and examination of this patient, discussed the same with the dictator. I agree with the dictator's note ,documented as a scribe. Any additional findings or plans will be noted.
[2018-12-31 10:59] LABS: Anisocytosis Slight; Basophils % (A) 1 %; Eosinophils # (A) 0.3 k/uL (0-0.7); Eosinophils % (A) 5 %; HCT 23.9 % (34.0-46.0); HGB 7.5 gm/dL (11.4-16.0); Hypochromasia Slight; Lymphocytes # (A) 0.9 k/uL (1.0-4.8); Lymphocytes % (A) 16 %; MCH 27.3 pg (25.0-35.0); MCHC 31.3 g/dL (31.0-37.0); MCV 87.3 fL (80.0-100.0); Mean Platelet Volume 7.9; Monocytes # (A) 0.4 k/uL (0-1.0); Monocytes % (A) 8 %; Neutrophils # (A) 3.8 k/uL (1.3-7.7); Neutrophils % (A) 69 %; Platelet Count 136 k/uL (150-450); RBC 2.74 m/uL (3.80-5.40); RDW 17.1 % (11.5-15.5); WBC 5.5 k/uL (3.8-10.6)
[2018-12-31 11:02] LABS: Calcium 8.2 mg/dL (8.4-10.2); Potassium 3.6 mmol/L (3.5-5.1)
[2018-12-31 12:00] VITALS: BMI 36.5
[2018-12-31] MEDS: IPRATROPIUM-ALBUTEROL 3 ML NEB INHALATION SCH ×3 (13:59→20:00)
[2018-12-31 16:50] LABS: INR 1.2 (<1.2)
--- NOTE | 2018-12-31 17:29 | PN ---
PROGRESS NOTE DATE OF SERVICE: 12/31/2018 REASON FOR FOLLOWUP: E coli spontaneous bacterial peritonitis. INTERVAL HISTORY: The patient is currently afebrile. The patient's overall breathing has improved and the cough has decreased in intensity. The patient denies having abdominal pain. No nausea, no vomiting or any worsening diarrhea. PHYSICAL EXAMINATION: Blood pressure 102/64 with a pulse of 73, temperature 98. She is 100% on room air. General description is a middle-aged female lying in bed in no distress. RESPIRATORY SYSTEM: Unlabored breathing. Clear to auscultation anteriorly. HEART: S1, S2. Regular rate and rhythm. ABDOMEN: Soft. Mildly distended. No tenderness. LABS: Hemoglobin is 7.5, white count 5.5. BUN of 59, creatinine 1.94. DIAGNOSTIC IMPRESSION AND PLAN: Patient with Escherichia coli spontaneous bacterial peritonitis in this patient who did have underlying cirrhotic liver with ascites. The patient is scheduled for her routine paracentesis and that should be performed for therapeutic benefits. Cell count differential culture will be done on the same. Afterwards patient should go home on oral Ceftin for about 10 more days to finish a course of therapy with close outpatient followup. MMODL / IJN: [id number] /
[2019-01-01] MEDS: IPRATROPIUM-ALBUTEROL 3 ML NEB INHALATION SCH ×4 (07:26→20:43)
[2019-01-01 07:35] LABS: Anisocytosis Slight; Basophils % (A) 1 %; Eosinophils # (A) 0.3 k/uL (0-0.7); Eosinophils % (A) 5 %; HCT 23.3 % (34.0-46.0); HGB 7.1 gm/dL (11.4-16.0); Hypochromasia Slight; Lymphocytes # (A) 0.9 k/uL (1.0-4.8); Lymphocytes % (A) 17 %; MCH 26.9 pg (25.0-35.0); MCHC 30.6 g/dL (31.0-37.0); MCV 87.9 fL (80.0-100.0); Mean Platelet Volume 7.3; Monocytes # (A) 0.5 k/uL (0-1.0); Monocytes % (A) 9 %; Neutrophils # (A) 3.6 k/uL (1.3-7.7); Neutrophils % (A) 66 %; Platelet Count 154 k/uL (150-450); RBC 2.65 m/uL (3.80-5.40); RDW 17.6 % (11.5-15.5); WBC 5.4 k/uL (3.8-10.6)
[2019-01-01 07:41] LABS: INR 1.2 (<1.2); Prothrombin Time 12.4 sec (9.0-12.0)
[2019-01-01 07:49] LABS: Calcium 7.9 mg/dL (8.4-10.2); Potassium 3.6 mmol/L (3.5-5.1)
[2019-01-01] MEDS ORDERED: ALBUMIN HUMAN 25% 50 ML in EMPTY BAG 1 BAG IVPB ONE (09:15)
[2019-01-01] MEDS: SODIUM BICARBONATE TAB 650 MG TAB PO SCH ×2 (10:24→21:46)
[2019-01-01] MEDS: GABAPENTIN 100 MG CAP PO SCH ×3 (10:24→21:46)
[2019-01-01] MEDS: FUROSEMIDE 40 MG TAB PO SCH ×2 (10:24→18:13)
[2019-01-01] MEDS: NYSTATIN 100,000 UNIT/GM POWD 15 GM TOPICAL SCH ×2 (10:24→21:46)
[2019-01-01] MEDS: LACTULOSE 20 GM/30 ML CUP PO SCH ×2 (10:24→17:32)
[2019-01-01] MEDS: PANTOPRAZOLE 40 MG TABLET PO SCH (10:24)
--- NOTE | 2019-01-01 15:14 | US ---
Therapeutic paracentesis. DATE OF EXAM: 01/01/2019 CLINICAL HISTORY: Ascites The procedure was discussed with the patient. The risks, complications, benefits, and alternatives we re discussed and any questions were answered. Informed consent was obtained. The patient was placed s upine on the ultrasound table and prepped and draped in the usual sterile fashion. All elements of maximal barrier technique were utilized. Under ultrasound guidance, access into the right lower quadrant was obtained, via the paracentesis catheter system and direct ultrasound guidanc e. Approximately 8.5 liters of straw-colored fluid was removed. The patient was stable throughout the pr ocedure and remained stable upon discharge from Department of Radiology. IMPRESSION: Successful therapeutic paracentesis under ultrasound guidance.
--- NOTE | 2019-01-01 16:00 | PN ---
PROGRESS NOTE DATE OF SERVICE: 01/01/2019 REASON FOR FOLLOWUP: E coli spontaneous bacterial peritonitis. INTERVAL HISTORY: The patient is currently afebrile. The patient is breathing comfortably. The patient was noted to have a drop in hemoglobin, getting more transfusion. No nausea, no vomiting and no abdominal pain. No diarrhea. PHYSICAL EXAMINATION: Blood pressure 101/50 with a pulse of 73, temperature 97.8. She is 100% on room air. General description is a middle-aged female lying in bed in no distress. RESPIRATORY SYSTEM: Unlabored breathing. Clear to auscultation anteriorly. HEART: S1, S2. Regular rate and rhythm. ABDOMEN: Soft. Mildly tender. No guarding or rigidity. LABS: Hemoglobin 7.1, white count 5.4, BUN of 57, creatinine 1.97. DIAGNOSTIC IMPRESSION AND PLAN: Patient with Escherichia coli positive ascitic fluid in this patient who has a history of liver cirrhosis with spontaneous bacterial peritonitis, currently covered with Rocephin 2 grams daily; to continue one more clinical course closely. Continue with supportive care. MMMELITONL / IJN: [id number] /
[2019-01-01] MEDS: ALBUMIN HUMAN 25% 50 ML in EMPTY BAG 1 BAG IVPB SCH ×3 (16:06→18:13)
--- NOTE | 2019-01-01 16:07 | P.PN ---
Subjective Progress Note Date: 01/01/19 48-year-old female history of liver disease with recurrent ascites presents from outpatient surgery after paracentesis for evaluation of hypotension, anemia, hyponatremia. Patient is status post paracentesis with 6.6 L removed. Hemoglobin 5.4 on admission. Receiving 3 units of packed RBCs .patient wheezy after blood products, IV push Lasix administered 1 with caution related to hypotension . Systolic blood pressure 87/53 on admission ,Received 1500 MLS IV fluid bolus.currently 101/61 .creatinine 2.39 .She has no specific complaints, she's hungry, no nausea or vomiting, no pain, no chest pain or dyspnea. T-max 99. Maintaining O2 sats of 99% on room air. Systolic blood pressure ranging from high 80s to low 100s. 12/27/18 Significant clinical improvement. Status post 3 units of packed RBCs. Labs pending. Systolic blood pressure currently remains in the low 100s. Denies chest pain, palpitations or increasing shortness of breath. She denies lightheadedness dizziness or focal deficits. Eager for discharge home. 12/28/2018 Creatinine unchanged, 2.2. Sodium slowly trending up, 128. Systolic blood pressure currently in the 90s. Paracentesis fluid testing positive for E. coli .Afebrile, normal WBC. Ammonia level down to 52, on lactulose. Hemoglobin 8.5. Denies chest pain, palpitations or shortness of breath. Good diet intake, denies abdominal pain. 12/31/2018 sensorium significantly improved. Ammonia down to 47, on lactulose. Maintained on IV Rocephin for spontaneous bacterial peritonitis. Patient's ascites increasing, normally receives weekly paracentesis on Monday. Minimal ambulation with in room to bathroom. Reports she sat up in chair yesterday. Denies chest pain, palpitations. Wheezing improving, on nebulized bronchodilators. Denies cough. Systolic blood pressure in the low 100s, labs pending. Afebrile, maintaining O2 sats of 100% on room air. 01/01/2019 hemoglobin down to 7.1, receiving one unit of packed RBCs. Scheduled for paracentesis today with albumin before and after as per protocol. INR 1.2. Creatinine 1.97. Na 126. SBP low 90s. Afebrile. Objective - Vital Signs Vital signs: Vital Signs Temp 98.5 F 01/01/19 00:52 Pulse 79 01/01/19 07:36 Resp 16 01/01/19 07:26 BP 100/63 01/01/19 00:52 Pulse Ox 98 01/01/19 07:26 Intake & Output 12/31/18 01/01/19 01/01/19 18:59 06:59 18:59 Intake Total 50 Balance 50 Weight 109 kg Intake: Intake, IV Titration 50 Amount cefTRIAXone 2 gm In 50 Sodium Chloride 0.9% 50 ml @ 100 mls/hr IVPB Q24HR [facility] Rx#:[id number] Other: Voiding Method Toilet Toilet # Voids 0 - Exam General appearance: Sitting up in bed , no acute distress HEENT: atraumatic, normocephalic, PERRLA, no thyromegaly, oral mucosa moist Respiratory exam: Respiratory effort normal, bilateral bases diminished with fine expiratory wheeze Cardiovascular Exam: Present: regular rate, normal rhythm, no murmur, no gallop, no rub GI/Abdominal exam: Present: Firm, distended, positive ascites, no tenderness, no guarding. Positive bowel sounds. Extremities exam: Present: normal inspection, normal capillary refill,pedal edema Neurological exam: Present: alert, oriented X3. No focal deficits Skin exam: Present: warm, dry, intact. Absent: cyanosis, diaphoretic Microbiology 12/25/18 14:15 Ascites Fluid Anaerobic Culture - Final 12/25/18 14:15 Ascites Fluid Gram Stain - Final 12/25/18 14:15 Ascites Fluid Body Fluid Culture - Final Escherichia coli - Labs CBC & Chem 7: 01/01/19 07:05 01/01/19 07:05 Labs: Abnormal Lab Results - Last 24 Hours (Table) 12/31/18 12/31/18 12/31/18 Range/Units 07:14 07:14 07:14 RBC 2.74 L (3.80-5.40) m/uL Hgb 7.5 L (11.4-16.0) gm/dL Hct 23.9 L (34.0-46.0) % MCHC (31.0-37.0) g/dL RDW 17.1 H (11.5-15.5) % Plt Count 136 L (150-450) k/uL Lymphocytes # 0.9 L (1.0-4.8) k/uL PT (9.0-12.0) sec INR 1.2 H (<1.2) Sodium 127 L (137-145) mmol/L Carbon Dioxide 16 L (22-30) mmol/L BUN 59 H (7-17) mg/dL Creatinine 1.94 H (0.52-1.04) mg/dL Glucose (74-99) mg/dL Calcium 8.2 L (8.4-10.2) mg/dL 01/01/19 01/01/19 01/01/19 Range/Units 07:05 07:05 07:05 RBC 2.65 L (3.80-5.40) m/uL Hgb 7.1 L (11.4-16.0) gm/dL Hct 23.3 L (34.0-46.0) % MCHC 30.6 L (31.0-37.0) g/dL RDW 17.6 H (11.5-15.5) % Plt Count (150-450) k/uL Lymphocytes # 0.9 L (1.0-4.8) k/uL PT 12.4 H (9.0-12.0) sec INR 1.2 H (<1.2) Sodium 126 L (137-145) mmol/L Carbon Dioxide 16 L (22-30) mmol/L BUN 57 H (7-17) mg/dL Creatinine 1.97 H (0.52-1.04) mg/dL Glucose 111 H (74-99) mg/dL Calcium 7.9 L (8.4-10.2) mg/dL Assessment and Plan Assessment: -Acute on Chronic 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 coli, status post paracentesis. -Acute on chronic renal failure, stage IV -Ascites, recurrent; status post paracentesis 6.6 L, in a patient who requires weekly paracentesis. -Hypovolemic hyponatremia secondary to intravascular volume depletion fluid r/t paracentesis -Hypotension secondary to the above without shock -Cirrhosis.alcohol liver -Morbid obesity, BMI 36.2 -History of Willie-en-Y gastric bypass -History of GI bleed -Anxiety -Ongoing nicotine dependence -Ongoing daily alcohol abuse -Candidiasis Plan: Continue on current medication regime ,monitoring and symptomatic treatment. Paracentesis pending for today. Antibiotics as per ID. Discharge planning in progress for tomorrow. The impression and plan of care has been dictated as directed. : I performed a history and examination of this patient, discussed the same with the dictator. I agree with the dictator's note ,documented as a scribe. Any additional findings or plans will be noted.
[2019-01-01 16:44] LABS: Appearance,BF Cloudy; Color,BF Orange; Nucleated Cells, Body Fluid 1700 /uL; RBC, Body Fluid 11150 /uL
[2019-01-01 16:59] LABS: Mononuclear WBC,Body Fluid 81 %; Polynuclear WBC,Body Fluid 19 %; Total Cells Counted,Body Fluid 100
[2019-01-01 17:59] LABS: Anisocytosis Slight; HCT 24.8 % (34.0-46.0); HGB 7.7 gm/dL (11.4-16.0); Hypochromasia Slight; MCH 27.4 pg (25.0-35.0); MCHC 30.9 g/dL (31.0-37.0); MCV 88.6 fL (80.0-100.0); Mean Platelet Volume 7.8; Platelet Count 115 k/uL (150-450); RDW 17.4 % (11.5-15.5); WBC 5.7 k/uL (3.8-10.6)
[2019-01-02] MEDS: IPRATROPIUM-ALBUTEROL 3 ML NEB INHALATION SCH ×4 (07:28→20:38)
[2019-01-02 07:32] LABS: Anisocytosis Slight; Basophils % (A) 1 %; Eosinophils # (A) 0.3 k/uL (0-0.7); Eosinophils % (A) 5 %; HCT 24.9 % (34.0-46.0); HGB 7.8 gm/dL (11.4-16.0); Lymphocytes # (A) 0.8 k/uL (1.0-4.8); Lymphocytes % (A) 15 %; MCHC 31.1 g/dL (31.0-37.0); MCV 86.7 fL (80.0-100.0); Mean Platelet Volume 7.4; Monocytes # (A) 0.4 k/uL (0-1.0); Monocytes % (A) 8 %; Neutrophils # (A) 3.9 k/uL (1.3-7.7); Neutrophils % (A) 70 %; Platelet Count 147 k/uL (150-450); RBC 2.87 m/uL (3.80-5.40); RDW 17.6 % (11.5-15.5); WBC 5.6 k/uL (3.8-10.6)
[2019-01-02 07:57] LABS: Calcium 7.9 mg/dL (8.4-10.2); Potassium 4.1 mmol/L (3.5-5.1)
[2019-01-02] MEDS: SODIUM BICARBONATE TAB 650 MG TAB PO SCH ×2 (10:29→20:03)
[2019-01-02] MEDS: GABAPENTIN 100 MG CAP PO SCH ×3 (10:29→20:03)
[2019-01-02] MEDS: LACTULOSE 20 GM/30 ML CUP PO SCH (10:30)
[2019-01-02] MEDS: FUROSEMIDE 40 MG TAB PO SCH ×2 (10:30→17:14)
[2019-01-02] MEDS: PANTOPRAZOLE 40 MG TABLET PO SCH (10:30)
[2019-01-02] MEDS: NYSTATIN 100,000 UNIT/GM POWD 15 GM TOPICAL SCH ×2 (10:36→20:03)
[2019-01-02] MEDS: MIDODRINE 5 MG TAB PO SCH ×2 (12:17→17:32)
--- NOTE | 2019-01-02 15:38 | P.PN ---
Subjective Progress Note Date: 01/02/19 48-year-old female history of liver disease with recurrent ascites presents from outpatient surgery after paracentesis for evaluation of hypotension, anemia, hyponatremia. Patient is status post paracentesis with 6.6 L removed. Hemoglobin 5.4 on admission. Receiving 3 units of packed RBCs .patient wheezy after blood products, IV push Lasix administered 1 with caution related to hypotension . Systolic blood pressure 87/53 on admission ,Received 1500 MLS IV fluid bolus.currently 101/61 .creatinine 2.39 .She has no specific complaints, she's hungry, no nausea or vomiting, no pain, no chest pain or dyspnea. T-max 99. Maintaining O2 sats of 99% on room air. Systolic blood pressure ranging from high 80s to low 100s. 12/27/18 Significant clinical improvement. Status post 3 units of packed RBCs. Labs pending. Systolic blood pressure currently remains in the low 100s. Denies chest pain, palpitations or increasing shortness of breath. She denies lightheadedness dizziness or focal deficits. Eager for discharge home. 12/28/2018 Creatinine unchanged, 2.2. Sodium slowly trending up, 128. Systolic blood pressure currently in the 90s. Paracentesis fluid testing positive for E. coli .Afebrile, normal WBC. Ammonia level down to 52, on lactulose. Hemoglobin 8.5. Denies chest pain, palpitations or shortness of breath. Good diet intake, denies abdominal pain. 12/31/2018 sensorium significantly improved. Ammonia down to 47, on lactulose. Maintained on IV Rocephin for spontaneous bacterial peritonitis. Patient's ascites increasing, normally receives weekly paracentesis on Monday. Minimal ambulation with in room to bathroom. Reports she sat up in chair yesterday. Denies chest pain, palpitations. Wheezing improving, on nebulized bronchodilators. Denies cough. Systolic blood pressure in the low 100s, labs pending. Afebrile, maintaining O2 sats of 100% on room air. 01/01/2019 hemoglobin down to 7.1, receiving one unit of packed RBCs. Scheduled for paracentesis today with albumin before and after as per protocol. INR 1.2. Creatinine 1.97. Na 126. SBP low 90s. Afebrile. 01/02/2019 history underwent paracentesis with 3.5 L of straw-colored fluid drained. Received albumin pre-and post procedure. Tolerated procedure well. This morning systolic blood pressure in the low 80s, asymptomatic, hemoglobin 7.8. Recently disclosed to nurse this morning that she is on Midodrin; verified and resumed. Objective - Vital Signs Vital signs: Vital Signs Temp 97.9 F 01/02/19 15:15 Pulse 72 01/02/19 15:15 Resp 16 01/02/19 15:15 BP 104/52 01/02/19 15:15 Pulse Ox 93 L 01/02/19 15:15 Intake & Output 01/01/19 01/02/19 01/02/19 18:59 06:59 18:59 Intake Total 460 250 50 Balance 460 250 50 Intake: Intake, IV Titration 150 100 50 Amount Albumin Human 25% 50 ml 150 50 In Empty Bag 1 bag @ 50 mls/hr IVPB Q1H [facility] Rx#: [id number] cefTRIAXone 2 gm In 50 50 Sodium Chloride 0.9% 50 ml @ 100 mls/hr IVPB Q24HR [facility] Rx#:[id number] Oral 150 Blood Product 310 Rc Irr As1 Unit 310 [id number] Other: Voiding Method Toilet Toilet Toilet # Voids 1 1 - Exam General appearance: Sitting up in bed , no acute distress HEENT: atraumatic, normocephalic, PERRLA, no thyromegaly, oral mucosa moist Respiratory exam: Respiratory effort normal, bilateral bases diminished with occasional fine expiratory wheeze Cardiovascular Exam: Present: regular rate, normal rhythm, no murmur, no gallop, no rub GI/Abdominal exam: Present: Softly distended, no tenderness, no guarding. Positive bowel sounds. Extremities exam: Present: normal inspection, normal capillary refill, improving pedal edema Neurological exam: Present: alert, oriented X3. No focal deficits Skin exam: Present: warm, dry, intact. Absent: cyanosis, diaphoretic Microbiology 12/25/18 14:15 Ascites Fluid Anaerobic Culture - Final 12/25/18 14:15 Ascites Fluid Gram Stain - Final 12/25/18 14:15 Ascites Fluid Body Fluid Culture - Final Escherichia coli - Labs CBC & Chem 7: 01/02/19 07:09 01/02/19 07:09 Labs: Abnormal Lab Results - Last 24 Hours (Table) 01/01/19 01/02/19 01/02/19 Range/Units 17:44 07:09 07:09 RBC 2.80 L 2.87 L (3.80-5.40) m/uL Hgb 7.7 L 7.8 L (11.4-16.0) gm/dL Hct 24.8 L 24.9 L (34.0-46.0) % MCHC 30.9 L (31.0-37.0) g/dL RDW 17.4 H 17.6 H (11.5-15.5) % Plt Count 115 L 147 L (150-450) k/uL Lymphocytes # 0.8 L (1.0-4.8) k/uL Sodium 124 L (137-145) mmol/L Carbon Dioxide 15 L (22-30) mmol/L BUN 57 H (7-17) mg/dL Creatinine 1.55 H (0.52-1.04) mg/dL Calcium 7.9 L (8.4-10.2) mg/dL Ammonia (<30) umol/L 01/02/19 Range/Units 07:09 RBC (3.80-5.40) m/uL Hgb (11.4-16.0) gm/dL Hct (34.0-46.0) % MCHC (31.0-37.0) g/dL RDW (11.5-15.5) % Plt Count (150-450) k/uL Lymphocytes # (1.0-4.8) k/uL Sodium (137-145) mmol/L Carbon Dioxide (22-30) mmol/L BUN (7-17) mg/dL Creatinine (0.52-1.04) mg/dL Calcium (8.4-10.2) mg/dL Ammonia 58 H (<30) umol/L Microbiology - Last 24 Hours (Table) 01/01/19 15:00 Gram Stain - Preliminary Ascites Fluid Body Fluid Culture - Preliminary 01/01/19 15:00 Anaerobic Culture - Preliminary Ascites Fluid Assessment and Plan Assessment: -Acute on Chronic 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 coli, status post paracentesis. -Acute on chronic renal failure, stage IV -Ascites, recurrent; status post paracentesis X 2, in a patient who requires weekly paracentesis. -Hypovolemic hyponatremia secondary to intravascular volume depletion fluid r/t paracentesis -Hypotension secondary to the above without shock -Cirrhosis.alcohol liver -Morbid obesity, BMI 36.2 -History of Willie-en-Y gastric bypass -History of GI bleed -Anxiety -Ongoing nicotine dependence -Ongoing daily alcohol abuse -Candidiasis Plan: Continue on current medication regime ,monitoring and symptomatic treatment. Resume midodrin.Antibiotics as per ID. peritoneal labs/cx pending. Discharge planning in progress for tomorrow. The impression and plan of care has been dictated as directed. : I performed a history and examination of this patient, discussed the same with the dictator. I agree with the dictator's note ,documented as a scribe. Any additional findings or plans will be noted.
--- NOTE | 2019-01-02 18:19 | PN ---
PROGRESS NOTE DATE OF SERVICE: 01/02/2019. REASON FOR FOLLOWUP: E coli spontaneous bacterial peritonitis. INTERVAL HISTORY: The patient is currently afebrile. The patient has been breathing comfortably. No significant chest pain or any worsening abdominal pain. No worsening diarrhea. PHYSICAL EXAMINATION: Blood pressure 104/52 with a pulse of 74. Temperature 97.6. She is 100% on room air. General description is a middle aged female lying in bed in no distress. Respiratory system: Unlabored breathing. Clear to auscultation anteriorly. Heart S1, S2. Regular rate and rhythm. ABDOMEN: Soft, mildly distended. No guarding or rigidity. LABS: Hemoglobin 7.8, white count 5.6. His BUN of 57, creatinine 1.55. Repeat ascitic fluid cultures currently pending. DIAGNOSTIC IMPRESSION AND PLAN: Patient with spontaneous bacterial peritonitis. Ascitic fluid culture with E coli currently covered with Rocephin. We will continue to monitor the patient clinical course closely. Continue supportive care. MMODL / IJN: [id number] /
[2019-01-03] MEDS: IPRATROPIUM-ALBUTEROL 3 ML NEB INHALATION SCH ×2 (07:51→11:29)
--- NOTE | 2019-01-03 08:42 | P.DS ---
Providers Date of admission: 12/25/18 20:52 Expected date of discharge: 01/03/19 Attending physician: Srinivas Jones Consults: 12/28/18 16:06 Consult Physician Routine Consulting Provider: Sanju Rowan Consult Reason/Comments: ecoli peritoneal fluid Do you want consulting provider notified?: Yes 01/01/19 10:46 Consult Physician Routine Consulting Provider: Aron Freitas Consult Reason/Comments: paracentesis with cell count, differential,culture. 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 coli, status post paracentesis. -Acute on chronic renal failure, stage IV -Ascites, recurrent; status post paracentesis X 2, in a patient who requires weekly paracentesis. -Hypovolemic hyponatremia secondary to intravascular volume depletion fluid r/t paracentesis -Hypotension secondary to the above without shock -Cirrhosis.alcohol liver -Morbid obesity, BMI 36.2 -History of Willie-en-Y gastric bypass -History of GI bleed -Anxiety -Ongoing nicotine dependence -Ongoing daily alcohol abuse -Candidiasis Hospital course:48-year-old female history of liver disease with recurrent ascites presents from outpatient surgery after paracentesis for evaluation of hypotension, anemia, hyponatremia. Patient is status post paracentesis with 6.6 L removed. Hemoglobin 5.4 on admission. Receiving 3 units of packed RBCs .patient wheezy after blood products, IV push Lasix administered 1 with caution related to hypotension . Systolic blood pressure 87/53 on admission ,Received 1500 MLS IV fluid bolus.currently 101/61 .creatinine 2.39 .She has no specific complaints, she's hungry, no nausea or vomiting, no pain, no chest pain or dyspnea. T-max 99. Maintaining O2 sats of 99% on room air. Systolic blood pressure ranging from high 80s to low 100s. 12/27/18 Significant clinical improvement. Status post 3 units of packed RBCs. Labs pending. Systolic blood pressure currently remains in the low 100s. Denies chest pain, palpitations or increasing shortness of breath. She denies lightheadedness dizziness or focal deficits. Eager for discharge home. 12/28/2018 Creatinine unchanged, 2.2. Sodium slowly trending up, 128. Systolic blood pressure currently in the 90s. Paracentesis fluid testing positive for E. coli .Afebrile, normal WBC. Ammonia level down to 52, on lactulose. Hemoglobin 8.5. Denies chest pain, palpitations or shortness of breath. Good diet intake, denies abdominal pain. 12/31/2018 sensorium significantly improved. Ammonia down to 47, on lactulose. Maintained on IV Rocephin for spontaneous bacterial peritonitis. Patient's ascites increasing, normally receives weekly paracentesis on Monday. Minimal ambulation with in room to bathroom. Reports she sat up in chair yesterday. Denies chest pain, palpitations. Wheezing improving, on nebulized bronchodilators. Denies cough. Systolic blood pressure in the low 100s, labs pending. Afebrile, maintaining O2 sats of 100% on room air. 01/01/2019 hemoglobin down to 7.1, receiving one unit of packed RBCs. Scheduled for paracentesis today with albumin before and after as per protocol. INR 1.2. Creatinine 1.97. Na 126. SBP low 90s. Afebrile. 01/02/2019 history underwent paracentesis with 8.5 L of straw-colored fluid drained. Received albumin pre-and post procedure. Tolerated procedure well. This morning systolic blood pressure in the low 80s, asymptomatic, hemoglobin 7.8. Recently disclosed to nurse this morning that she is on Midodrin; verified and resumed. Significant clinical improvement. Eager for discharge. Repeat peritoneal cultures pending. Patient will be discharged home in a stable condition with guarded prognosis pending clearance and DC antibiotics from infectious disease. Exam General appearance: Sitting up in bed , no acute distress Respiratory exam: Respiratory effort normal, bilateral bases diminished Cardiovascular Exam: Present: regular rate, normal rhythm, no murmur, no gallop, no rub GI/Abdominal exam: Present: Softly distended, no tenderness, no guarding. Positive bowel sounds. Neurological exam: No focal deficits Microbiology 01/01/19 15:00 Ascites Fluid Gram Stain - Preliminary 01/01/19 15:00 Ascites Fluid Body Fluid Culture - Preliminary 01/01/19 15:00 Ascites Fluid Anaerobic Culture - Preliminary 12/25/18 14:15 Ascites Fluid Anaerobic Culture - Final 12/25/18 14:15 Ascites Fluid Gram Stain - Final 12/25/18 14:15 Ascites Fluid Body Fluid Culture - Final Escherichia coli The impression and plan of care has been dictated as directed. : I performed a history and examination of this patient, discussed the same with the dictator. I agree with the dictator's note ,documented as a scribe. Any additional findings or plans will be noted. Time taken: 35 minutes Patient Condition at Discharge: Stable Plan - Discharge Summary Discharge Rx Participant: No New Discharge Prescriptions: New Nystatin 100,000 Unit/gm Powd [Mycostatin Powder] 1 applic TOPICAL BID applic Pantoprazole [Protonix] 40 mg PO AC-BRKFST #30 tablet. Continue Gabapentin [Neurontin] 100 mg PO TID #90 cap Sodium Bicarbonate Tab 650 mg PO BID Furosemide [Lasix] 40 mg PO BID Lactulose [Cephulac] 30 gm PO DAILY ml Midodrine [ProAmatine] 10 mg PO AC-TID tab ALPRAZolam [Xanax] 0.5 mg PO Q8HR PRN PRN Reason: Anxiety Spironolactone 150 mg PO DAILY PRN PRN Reason: LEG EDEMA traMADol HCl [Ultram] 1 tablet PO Q6H PRN PRN Reason: Pain Midodrine [ProAmatine] 10 mg PO TID Discharge Medication List Gabapentin [Neurontin] 100 mg PO TID #90 cap 09/05/18 [Rx] Furosemide [Lasix] 40 mg PO BID 10/09/18 [History] Sodium Bicarbonate Tab 650 mg PO BID 10/09/18 [History] Lactulose [Cephulac] 30 gm PO DAILY ml 10/22/18 [Rx] Midodrine [ProAmatine] 10 mg PO AC-TID tab 10/22/18 [Rx] ALPRAZolam [Xanax] 0.5 mg PO Q8HR PRN 11/06/18 [History] Spironolactone 150 mg PO DAILY PRN 12/25/18 [History] traMADol HCl [Ultram] 1 tablet PO Q6H PRN 01/01/19 [History] Midodrine [ProAmatine] 10 mg PO TID 01/02/19 [History] Nystatin 100,000 Unit/gm Powd [Mycostatin Powder] 1 applic TOPICAL BID applic 01/03/19 [Rx] Pantoprazole [Protonix] 40 mg PO MARIA LUISABRKFST #30 tablet. 01/03/19 [Rx] Follow up Appointment(s)/Referral(s): Srinivas Jones DO [Primary Care Provider] - 3 Days Ambulatory/Diagnostic Orders: Complete Blood Count w/diff [LAB.AMB] Time Frame: 3 Days, Location: None Selected Activity/Diet/Wound Care/Special Instructions: Antibiotics as per ID
[2019-01-03] MEDS: PANTOPRAZOLE 40 MG TABLET PO SCH (08:45)
[2019-01-03] MEDS: GABAPENTIN 100 MG CAP PO SCH (08:45)
[2019-01-03] MEDS: MIDODRINE 5 MG TAB PO SCH (08:45)
[2019-01-03] MEDS: LACTULOSE 20 GM/30 ML CUP PO SCH (10:41)
[2019-01-03] MEDS: SODIUM BICARBONATE TAB 650 MG TAB PO SCH (11:19)
[2019-01-03] MEDS: NYSTATIN 100,000 UNIT/GM POWD 15 GM TOPICAL SCH (11:20)
[2019-01-03] MEDS: FUROSEMIDE 40 MG TAB PO SCH (11:20)
[2019-01-03 13:34] VITALS: BP 93/59; PULSE 74; RESP 23; TEMP 98.5
--- NOTE | 2019-01-03 14:05 | PN ---
PROGRESS NOTE DATE OF SERVICE: 01/03/2019 REASON FOR FOLLOWUP: E coli spontaneous bacterial peritonitis. INTERVAL HISTORY: The patient is currently afebrile. The patient is breathing comfortably. Denies having any chest pain. No cough. No worsening abdominal pain. No nausea, no vomiting. PHYSICAL EXAMINATION: On examination, blood pressure is 100/62 with a pulse of 70, temperature is 97.4. She is 100% on room air. General description is a middle aged female lying in bed in no distress. RESPIRATORY SYSTEM: Unlabored breathing, clear to auscultation anteriorly. HEART: S1, S2. Regular rate and rhythm. ABDOMEN: Soft, mildly distended. LABS: Hemoglobin 7.8, white count 5.6, BUN of 57, creatinine 1.55. The peritoneal/ascitic fluid from yesterday white count only 19, 81. DIAGNOSTIC IMPRESSION AND PLAN: Patient with Escherichia coli spontaneous bacterial peritonitis, currently on Rocephin. White count did show overall improvement. Repeat culture so far negative. She will finish therapy with oral Ceftin 500 mg twice a day for another 10 days. Prescription was sent to the pharmacy. Continue with supportive care. MMODL / IJN: [id number] /
== END 2019-01-03 13:32 | disposition home or self-care (01) | DRG 432 ==
LOC: EC 18:42 → 4SSUR 20:52
PROVIDERS: ADMIT Family Medicine; ATTEND Family Medicine
PROC: 30233N1 Transfusion of Nonautologous Red Blood Cells into Peripheral Vein, Percutaneous Approach (ICD-10-PCS; principal; 2018-12-25)
PROC: 0W9G3ZZ Drainage of Peritoneal Cavity, Percutaneous Approach (ICD-10-PCS; 2019-01-01)
DX: K70.31 Alcoholic cirrhosis of liver with ascites (principal); K65.2 Spontaneous bacterial peritonitis; N17.9 Acute kidney failure, unspecified; N18.4 Chronic kidney disease, stage 4 (severe); D62 Acute posthemorrhagic anemia; E87.1 Hypo-osmolality and hyponatremia; I85.10 Secondary esophageal varices without bleeding; K72.90 Hepatic failure, unspecified without coma; I95.9 Hypotension, unspecified; E66.01 Morbid (severe) obesity due to excess calories; F41.9 Anxiety disorder, unspecified; E86.1 Hypovolemia; F17.210 Nicotine dependence, cigarettes, uncomplicated; F10.10 Alcohol abuse, uncomplicated; B96.20 Unspecified Escherichia coli [E. coli] as the cause of diseases classified elsewhere; B37.9 Candidiasis, unspecified; Z68.36 Body mass index [BMI] 36.0-36.9, adult; Z79.899 Other long term (current) drug therapy; Z98.84 Bariatric surgery status; Z91.048 Other nonmedicinal substance allergy status; Z82.5 Family history of asthma and other chronic lower respiratory diseases; Z82.49 Family history of ischemic heart disease and other diseases of the circulatory system; Z83.3 Family history of diabetes mellitus
CPT/HCPCS: 36415; 49083; 71046; 80048; 80053; 81003; 82140; 83605; 83735; 83880; 84100; 84484; 85025; 85027; 85610; 85730; 86850; 86900; 86901; 86920; 87070; 87075; 87077; 87186; 87205; 89050; 93005; 94640; 94760; 96360; 96361; 99285

== ENCOUNTER 2019-01-08 13:41 | Day surgery (SDC) | payer OTHER ==
[~2019-01-08 13:41] MED LIST changes: -ALBUMIN HUMAN 25% 50 ML in EMPTY BAG 1 BAG IVPB ONE; +MIDODRINE 5 MG TAB PO SCH; -MIDODRINE 5 MG TAB PO STA
[2019-01-08] MEDS: ALBUMIN HUMAN 25% 50 ML in EMPTY BAG 1 BAG IVPB SCH ×4 (14:08→16:14)
[2019-01-08 14:10] LABS: Mean Platelet Volume 7.3; Platelet Count 217 k/uL (150-450)
[2019-01-08 14:16] LABS: INR 1.1 (<1.2); Prothrombin Time 11.3 sec (9.0-12.0)
[2019-01-08 14:17] VITALS: TEMP 97.5
[2019-01-08 14:47] LABS: Anisocytosis Slight; Basophils # (A) 0.1 k/uL (0-0.2); Basophils % (A) 1 %; Eosinophils # (A) 0.1 k/uL (0-0.7); Eosinophils % (A) 2 %; HCT 24.8 % (34.0-46.0); HGB 7.6 gm/dL (11.4-16.0); Hypochromasia Slight; Lymphocytes # (A) 0.9 k/uL (1.0-4.8); Lymphocytes % (A) 16 %; MCH 27.5 pg (25.0-35.0); MCHC 30.6 g/dL (31.0-37.0); MCV 89.9 fL (80.0-100.0); Mean Platelet Volume 7.1; Monocytes # (A) 0.3 k/uL (0-1.0); Monocytes % (A) 5 %; Neutrophils # (A) 4.3 k/uL (1.3-7.7); Neutrophils % (A) 74 %; Platelet Count 222 k/uL (150-450); RBC 2.76 m/uL (3.80-5.40); RDW 18.8 % (11.5-15.5); WBC 5.8 k/uL (3.8-10.6)
[2019-01-08 14:52] LABS: Albumin 2.9 g/dL (3.5-5.0); Calcium 8.7 mg/dL (8.4-10.2); Potassium 4.2 mmol/L (3.5-5.1); Total Bilirubin 0.9 mg/dL (0.2-1.3); Total Protein 5.8 g/dL (6.3-8.2)
--- NOTE | 2019-01-08 16:33 | US ---
EXAMINATION TYPE: US paracentesis abd w/image DATE OF EXAM: 01/08/2019 COMPARISON: NONE HISTORY: Ascites. PROCEDURE: Maximal barrier technique was utilized. The skin overlying a suitable pocket of fluid was localized with ultrasound and the overlying skin was prepped and draped. Ultrasound was utilized with sterile technique. Lidocaine was used for local anesthesia and a skin angelo made with a scalpel. Catheter was advanced under direct ultrasound guidance into a suitable pocket of fluid and approximately 7.2 liter s of cloudy chicho fluid were removed. Catheter was withdrawn and hemostasis achieved. There is no i mmediate complication; the patient is discharged in stable condition. IMPRESSION: STATUS POST ULTRASOUND GUIDED PARACENTESIS FOR PALLIATION OF ASCITES. THIS PROCEDURE WA S PERFORMED BY THE UNDERSIGNED.
[2019-01-08 16:39] VITALS: BP 93/48; PULSE 70; RESP 14
== END 2019-01-08 16:47 | disposition home or self-care (01) ==
LOC: RADPROMAIN 13:41
DX: R18.8 Other ascites (principal)
CPT/HCPCS: 80053; 85025; 85610; 49083; P9047; 82565; 85049

== ENCOUNTER 2019-01-15 12:32 | Day surgery (SDC) | payer OTHER ==
[~2019-01-15 12:32] MED LIST changes: +MIDODRINE 5 MG TAB PO ONE; -MIDODRINE 5 MG TAB PO SCH
[2019-01-15 13:07] VITALS: TEMP 97.4
[2019-01-15] MEDS: ALBUMIN HUMAN 25% 50 ML in EMPTY BAG 1 BAG IVPB SCH ×4 (13:07→16:06)
[2019-01-15 13:14] LABS: Mean Platelet Volume 7.5; Platelet Count 250 k/uL (150-450)
[2019-01-15 13:32] LABS: INR 1.1 (<1.2)
[2019-01-15 15:56] VITALS: RESP 14
[2019-01-15 16:17] VITALS: BP 103/48; PULSE 70
--- NOTE | 2019-01-15 16:30 | US ---
Therapeutic paracentesis. DATE OF EXAM: 01/15/2019 CLINICAL HISTORY: Ascites The procedure was discussed with the patient. The risks, complications, benefits, and alternatives we re discussed and any questions were answered. Informed consent was obtained. The patient was placed s upine on the ultrasound table and prepped and draped in the usual sterile fashion. All elements of maximal barrier technique were utilized. Under ultrasound guidance, access into the right lower quadrant was obtained, via the paracentesis catheter system and direct ultrasound guidanc e. Approximately 9.1 liters of straw-colored fluid was removed. The patient was stable throughout the pr ocedure and remained stable upon discharge from Department of Radiology. IMPRESSION: Successful therapeutic paracentesis under ultrasound guidance.
== END 2019-01-15 16:35 | disposition home or self-care (01) ==
LOC: RADPROMAIN 12:32
DX: R18.8 Other ascites (principal)
CPT/HCPCS: 82565; 85049; 85610; 49083; P9047

== ENCOUNTER 2019-01-22 12:49 | Day surgery (SDC) | payer OTHER ==
[2019-01-22] MEDS ORDERED: MIDODRINE 5 MG TAB PO ONE (12:53)
[2019-01-22 13:16] LABS: Mean Platelet Volume 7.2; Platelet Count 214 k/uL (150-450)
[2019-01-22 13:20] VITALS: RESP 16; TEMP 97.5
[2019-01-22 13:21] LABS: INR 1.2 (<1.2); Prothrombin Time 12.2 sec (9.0-12.0)
[2019-01-22] MEDS: ALBUMIN HUMAN 25% 50 ML in EMPTY BAG 1 BAG IVPB SCH ×4 (13:24→14:29)
--- NOTE | 2019-01-22 14:56 | US ---
Therapeutic paracentesis. DATE OF EXAM: 01/22/2019 CLINICAL HISTORY: Ascites The procedure was discussed with the patient. The risks, complications, benefits, and alternatives we re discussed and any questions were answered. Informed consent was obtained. The patient was placed s upine on the ultrasound table and prepped and draped in the usual sterile fashion. All elements of maximal barrier technique were utilized. Under ultrasound guidance, access into the right lower quadrant was obtained, via the paracentesis catheter system and direct ultrasound guidanc e. Approximately 3.5 liters of straw-colored fluid was removed. The patient was stable throughout the pr ocedure and remained stable upon discharge from Department of Radiology. IMPRESSION: Successful therapeutic paracentesis under ultrasound guidance.
[2019-01-22 15:06] VITALS: BP 88/46; PULSE 68
== END 2019-01-22 15:24 | disposition home or self-care (01) ==
LOC: RADPROMAIN 12:49
DX: R18.8 Other ascites (principal)
CPT/HCPCS: 49083; 82565; 85049; 85610; P9047

== ENCOUNTER 2019-01-29 12:44 | Day surgery (SDC) | payer OTHER ==
[~2019-01-29 12:44] MED LIST changes: -MIDODRINE 5 MG TAB PO ONE; +MIDODRINE 5 MG TAB PO STA
[2019-01-29 13:11] VITALS: RESP 16; TEMP 97.1
[2019-01-29] MEDS: ALBUMIN HUMAN 25% 50 ML in EMPTY BAG 1 BAG IVPB SCH ×4 (13:11→14:11)
[2019-01-29 13:20] LABS: INR 1.3 (<1.2); Prothrombin Time 13.5 sec (9.0-12.0)
[2019-01-29 13:23] LABS: Mean Platelet Volume 8.1; Platelet Count 213 k/uL (150-450)
[2019-01-29 14:50] VITALS: BP 79/39; PULSE 64
--- NOTE | 2019-01-29 16:15 | US ---
EXAMINATION TYPE: US paracentesis abd w/image DATE OF EXAM: 01/29/2019 COMPARISON: NONE HISTORY: Ascites. PROCEDURE: Maximal barrier technique was utilized. The skin overlying a suitable pocket of fluid was localized with ultrasound and the overlying skin was prepped and draped. Ultrasound was utilized with sterile technique. Lidocaine was used for local anesthesia and a skin angelo made with a scalpel. Catheter was advanced under direct ultrasound guidance into a suitable pocket of fluid and approximately 5 liters of serous fluid were removed. Catheter was withdrawn and hemostasis achieved. There is no immediate complication; the patient is discharged in stable condition. IMPRESSION: STATUS POST ULTRASOUND GUIDED PARACENTESIS FOR PALLIATION OF ASCITES. THIS PROCEDURE WA S PERFORMED BY THE UNDERSIGNED.
== END 2019-01-29 15:15 | disposition home or self-care (01) ==
LOC: RADPROMAIN 12:44
DX: R18.8 Other ascites (principal)
CPT/HCPCS: 82565; 85049; 85610; 36415; 49083; P9047

== ENCOUNTER 2019-01-29 15:08 | Inpatient (IN) | payer OTHER ==
--- NOTE | 2019-01-29 15:59 | ED ---
General Adult HPI - General Chief complaint: Recheck/Abnormal Lab/Rx Stated complaint: Weakness Source: patient, RN notes reviewed Mode of arrival: wheelchair Limitations: physical limitation - History of Present Illness Initial comments: This a 48-year-old female with a past medical history significant for kidney failure and chronic ascites. Patient states she has liver failure from alcohol abuse. Patient states she came in today to have her abdomen cranial fluid but she was hypotensive so after they drained or fluid they sent her to the emergency department. Patient states she has been extremely weak and unable to ablate because she is so weak lately. Patient denies any fever chills patient denies a cough patient denies chest pain patient denies difficulty breathing shortness of breath per patient denies headache patient denies any numbness or focal weakness. Patient denies lightheadedness or dizziness. - Related Data Home Medications Medication Instructions Recorded Confirmed Furosemide [Lasix] 40 mg PO BID 10/09/18 01/29/19 Sodium Bicarbonate Tab 650 mg PO BID 10/09/18 01/29/19 ALPRAZolam [Xanax] 0.5 mg PO Q8HR PRN 11/06/18 01/29/19 Spironolactone 150 mg PO DAILY PRN 12/25/18 01/29/19 traMADol HCl [Ultram] 1 tablet PO Q6H PRN 01/01/19 01/29/19 Previous Rx's Medication Instructions Recorded Gabapentin [Neurontin] 100 mg PO TID #90 cap 09/05/18 Lactulose [Cephulac] 30 gm PO DAILY ml 10/22/18 Midodrine [ProAmatine] 10 mg PO AC-TID tab 10/22/18 Nystatin 100,000 Unit/gm Powd 1 applic TOPICAL BID applic 01/03/19 [Mycostatin Powder] Pantoprazole [Protonix] 40 mg PO AC-BRKFST #30 tablet. 01/03/19 Allergies Allergy/AdvReac Type Severity Reaction Status Date / Time adhesive tape Allergy Rash/Hives Verified 01/29/19 13:34 Review of Systems ROS Statement: Those systems with pertinent positive or pertinent negative responses have been documented in the HPI. ROS Other: All systems not noted in ROS Statement are negative. Past Medical History Past Medical History: GI Bleed, Liver Disease Additional Past Medical History / Comment(s): ascites,"hernia", gi bleed/anemia -required blood transfusions History of Any Multi-Drug Resistant Organisms: None Reported Past Surgical History: Bariatric Surgery, Section Additional Past Surgical History / Comment(s): gastric bypass in 2003, recurrent paracentesis,colonoscopy, egd w/apc/variceal banding/bx Past Anesthesia/Blood Transfusion Reactions: No Reported Reaction Additional Past Anesthesia/Blood Transfusion Reaction / Comment(s): blood transfusions Past Psychological History: Anxiety Smoking Status: Current every day smoker Past Alcohol Use History: Daily Past Drug Use History: None Reported - Past Family History Mother History Unknown: Yes Family Medical History: Congestive Heart Failure (CHF), COPD Father History Unknown: Yes Family Medical History: Diabetes Mellitus General Exam - General Exam Comments Initial Comments: GENERAL: Patient is well-developed and well-nourished. Patient is nontoxic and well- hydrated and is in mild distress. ENT: Neck is soft and supple. No significant lymphadenopathy is noted. Oropharynx is clear. Moist mucous membranes. Neck has full range of motion without eliciting any pain. EYES: The sclera were anicteric and conjunctiva were pink and moist. Extraocular movements were intact and pupils were equal round and reactive to light. Eyelids were unremarkable. PULMONARY: Unlabored respirations. Good breath sounds bilaterally. No audible rales rhonchi or wheezing was noted. CARDIOVASCULAR: There is a regular rate and rhythm without any murmurs gallops or rubs. ABDOMEN: Soft and nontender with normal bowel sounds. No palpable organomegaly was noted. There is no palpable pulsatile mass. SKIN: Skin is slightly jaundiced in appearance NEUROLOGIC: Patient is alert and oriented x3. Cranial nerves II through XII are grossly intact. Motor and sensory are also intact. Normal speech, volume and content. Symmetrical smile. MUSCULOSKELETAL: Normal extremities with adequate strength and full range of motion. 2+ edema LYMPHATICS: No significant lymphadenopathy is noted PSYCHIATRIC: Normal psychiatric evaluation. Limitations: physical limitation Course Vital Signs 01/29/19 15:17 Temperature 97.3 F L Pulse Rate 63 Respiratory 19 Rate Blood Pressure 95/35 O2 Sat by Pulse 100 Oximetry Medical Decision Making - Medical Decision Making EKG shows normal sinus rhythm at 61 bpm NV interval is on a 44 QRS is under 46 Q-T intervals 450 QTC is 453. Patient's EKG shows no ST segment elevation or depression or T wave abnormalities are noted Patient's hemoglobin was 4.6 height ordered 2 units of packed red blood cells. Patient also is hyponatremic is started the patient with a 500 mL bolus and put on a drip at 75 mL an hour normal saline. I consult nephrology for creatinine 2.93. I spoke with Dr. Pleitez agreed to admit the patient admitted the patient I wrote admitting orders. I spoke with Dr. Sosa as well and admitting the patient to the ICU. - Lab Data Result diagrams: 01/29/19 15:39 01/29/19 15:39 Lab Results 01/29/19 01/29/19 01/29/19 Range/Units 15:39 15:39 15:39 WBC 7.7 (3.8-10.6) k/uL RBC 1.64 L (3.80-5.40) m/uL Hgb 4.6 L* D (11.4-16.0) gm/dL Hct 14.6 L* (34.0-46.0) % MCV 89.0 (80.0-100.0) fL MCH 28.1 (25.0-35.0) pg MCHC 31.6 (31.0-37.0) g/dL RDW 18.7 H (11.5-15.5) % Plt Count 145 L (150-450) k/uL Neutrophils % 78 % Lymphocytes % 11 % Monocytes % 8 % Eosinophils % 1 % Basophils % 0 % Neutrophils # 5.9 (1.3-7.7) k/uL Lymphocytes # 0.9 L (1.0-4.8) k/uL Monocytes # 0.6 (0-1.0) k/uL Eosinophils # 0.1 (0-0.7) k/uL Basophils # 0.0 (0-0.2) k/uL Hypochromasia Moderate Anisocytosis Slight PT (9.0-12.0) sec INR (<1.2) APTT (22.0-30.0) sec Sodium 121 L (137-145) mmol/L Potassium 6.0 H (3.5-5.1) mmol/L Chloride 97 L (98-107) mmol/L Carbon Dioxide 13 L (22-30) mmol/L Anion Gap 11 mmol/L BUN 76 H (7-17) mg/dL Creatinine 2.93 H (0.52-1.04) mg/dL Est GFR (CKD-EPI)AfAm 21 (>60 ml/min/1.73 sqM) Est GFR (CKD-EPI)NonAf 18 (>60 ml/min/1.73 sqM) Glucose 99 (74-99) mg/dL Plasma Lactic Acid Alex 1.5 (0.7-2.0) mmol/L Calcium 8.3 L (8.4-10.2) mg/dL Magnesium 2.9 H (1.6-2.3) mg/dL Total Bilirubin 1.2 (0.2-1.3) mg/dL AST 73 H (14-36) U/L ALT 27 (9-52) U/L Alkaline Phosphatase 98 (38-126) U/L Troponin I (0.000-0.034) ng/mL Total Protein 5.5 L (6.3-8.2) g/dL Albumin 3.0 L (3.5-5.0) g/dL 01/29/19 01/29/19 Range/Units 15:39 15:39 WBC (3.8-10.6) k/uL RBC (3.80-5.40) m/uL Hgb (11.4-16.0) gm/dL Hct (34.0-46.0) % MCV (80.0-100.0) fL MCH (25.0-35.0) pg MCHC (31.0-37.0) g/dL RDW (11.5-15.5) % Plt Count (150-450) k/uL Neutrophils % % Lymphocytes % % Monocytes % % Eosinophils % % Basophils % % Neutrophils # (1.3-7.7) k/uL Lymphocytes # (1.0-4.8) k/uL Monocytes # (0-1.0) k/uL Eosinophils # (0-0.7) k/uL Basophils # (0-0.2) k/uL Hypochromasia Anisocytosis PT 14.4 H (9.0-12.0) sec INR 1.4 H (<1.2) APTT 35.1 H (22.0-30.0) sec Sodium (137-145) mmol/L Potassium (3.5-5.1) mmol/L Chloride (98-107) mmol/L Carbon Dioxide (22-30) mmol/L Anion Gap mmol/L BUN (7-17) mg/dL Creatinine (0.52-1.04) mg/dL Est GFR (CKD-EPI)AfAm (>60 ml/min/1.73 sqM) Est GFR (CKD-EPI)NonAf (>60 ml/min/1.73 sqM) Glucose (74-99) mg/dL Plasma Lactic Acid Alex (0.7-2.0) mmol/L Calcium (8.4-10.2) mg/dL Magnesium (1.6-2.3) mg/dL Total Bilirubin (0.2-1.3) mg/dL AST (14-36) U/L ALT (9-52) U/L Alkaline Phosphatase (38-126) U/L Troponin I <0.012 (0.000-0.034) ng/mL Total Protein (6.3-8.2) g/dL Albumin (3.5-5.0) g/dL Critical Care Time Critical Care Time: Yes Total Critical Care Time: 35 Disposition Clinical Impression: Renal insufficiency, Hyponatremia, Hyperkalemia, Anemia, Coagulopathy Disposition: ADMITTED IP TO THIS [facility] Referrals: Srinivas Jones DO [Primary Care Provider] - 1-2 days Time of Disposition: 16:45
[2019-01-29 16:23] LABS: Calcium 8.3 mg/dL (8.4-10.2); Magnesium 2.9 mg/dL (1.6-2.3); Total Bilirubin 1.2 mg/dL (0.2-1.3); Total Protein 5.5 g/dL (6.3-8.2)
[2019-01-29 16:25] LABS: INR 1.4 (<1.2); Partial Thromboplastin Time 35.1 sec (22.0-30.0); Prothrombin Time 14.4 sec (9.0-12.0)
[2019-01-29 16:33] LABS: Anisocytosis Slight; Basophils % (A) 0 %; Eosinophils # (A) 0.1 k/uL (0-0.7); Eosinophils % (A) 1 %; Hypochromasia Moderate; Lymphocytes # (A) 0.9 k/uL (1.0-4.8); Lymphocytes % (A) 11 %; MCH 28.1 pg (25.0-35.0); MCHC 31.6 g/dL (31.0-37.0); Mean Platelet Volume 7.8; Monocytes # (A) 0.6 k/uL (0-1.0); Monocytes % (A) 8 %; Neutrophils # (A) 5.9 k/uL (1.3-7.7); Neutrophils % (A) 78 %; Platelet Count 145 k/uL (150-450); RBC 1.64 m/uL (3.80-5.40); RDW 18.7 % (11.5-15.5); WBC 7.7 k/uL (3.8-10.6)
[2019-01-29 16:36] LABS: HCT 14.6 % (34.0-46.0); HGB 4.6 gm/dL (11.4-16.0)
[2019-01-29] MEDS ORDERED: SODIUM CHLORIDE 0.9% 500 ML 500 ML IV ONE (16:43)
[2019-01-29] MEDS ORDERED: SODIUM BICARB 8.4% 50 ML SYR (1 MEQ/ML) IV STA (16:46)
[2019-01-29] MEDS ORDERED: NALOXONE 0.4 MG/ML 1 ML VIAL IV PRN (16:47)
[2019-01-29] MEDS ORDERED: SODIUM POLYSTYRENE SULFONATE 15 GM/60 ML BOTTLE PO STA (16:47)
[2019-01-29] MEDS ORDERED: SODIUM CHLORIDE 0.9% 1,000 ML IV STA (16:50)
--- NOTE | 2019-01-29 16:58 | XR ---
EXAMINATION TYPE: XR chest 2V DATE OF EXAM: 01/29/2019 COMPARISON: 12/25/2018 HISTORY: Chest pain TECHNIQUE: Frontal and lateral views of the chest are obtained. FINDINGS: Heart and mediastinum are normal. Lungs are clear. Diaphragm is normal. Bony thorax appear s normal. There are chest leads. IMPRESSION: Normal chest. No change.
[2019-01-29 17:57] LABS: Appearance,Urine Turbid (Clear); Bacteria,Urine Many /hpf; Bilirubin,Urine Negative (Negative); Blood,Urine Small (Negative); Color,Urine Yellow; Glucose,Urine (UA) Negative (Negative); Hyaline Casts,Urine 23 /lpf (0-2); Ketones,Urine Negative (Negative); Leukocyte Esterase,Urine Large (Negative); Nitrite,Urine Negative (Negative); Protein,Urine 1+ (Negative); RBC,Urine 14 /hpf (0-5); Specific Gravity,Urine 1.019 (1.001-1.035); WBC,Urine >182 /hpf (0-5)
[2019-01-29 18:21] LABS: Glucose,Whole Blood 116 mg/dL (75-99)
[2019-01-30 05:29] LABS: Anisocytosis Slight; Basophils % (A) 0 %; Eosinophils # (A) 0.2 k/uL (0-0.7); Eosinophils % (A) 3 %; Hypochromasia Slight; Lymphocytes # (A) 1.1 k/uL (1.0-4.8); Lymphocytes % (A) 16 %; MCH 29.8 pg (25.0-35.0); MCHC 34.2 g/dL (31.0-37.0); Mean Platelet Volume 7.8; Monocytes # (A) 0.6 k/uL (0-1.0); Monocytes % (A) 10 %; Neutrophils # (A) 4.6 k/uL (1.3-7.7); Neutrophils % (A) 69 %; Platelet Count 130 k/uL (150-450); Poikilocytosis Slight; RBC 1.93 m/uL (3.80-5.40); RDW 17.8 % (11.5-15.5); WBC 6.6 k/uL (3.8-10.6)
[2019-01-30 05:42] LABS: HCT 16.8 % (34.0-46.0); HGB 5.8 gm/dL (11.4-16.0)
[2019-01-30 05:46] LABS: Albumin 2.6 g/dL (3.5-5.0); Calcium 7.8 mg/dL (8.4-10.2); Magnesium 2.7 mg/dL (1.6-2.3); Potassium 5.7 mmol/L (3.5-5.1); Total Bilirubin 3.8 mg/dL (0.2-1.3); Total Protein 5.1 g/dL (6.3-8.2)
[2019-01-30] MEDS ORDERED: PANTOPRAZOLE 40 MG/10 ML VIAL IVP SCH (09:00)
--- NOTE | 2019-01-30 10:17 | P.CNPUL ---
History of Present Illness Consult date: 01/30/19 Requesting physician: Srinivas Jones Reason for consult: other Chief complaint: Hypotension, urinary tract infection, anemia History of present illness: This is a 48-year-old white female patient of Dr. Srinivas Jones, who presented to the emergency department on 01/29/2019 following her routine weekly paracentesis with removal of 5 L of ascitic fluid, following the procedure patient became hypotensive, she was given albumin was procedure, she remains hypotensive and she was sent to the emergency department for evaluation. She has history of alcoholic liver disease, and that she has weekly paracentesis, with removal of average of 5-7 L of fluid. Her EtOH use is currently in remission. Other medical history includes chronic kidney disease, previous history of GI bleeding, esophageal varices with banding, gastric bypass surgery in 2002, anxiety, and current nicotine dependence. Patient denied any fever or chills. Afebrile. Denies any pulmonary complaints, denies any urinary complaints, lab work was drawn and showed white blood cell count 7.7, hemoglobin 4.6, INR is 1.4, sodium is 121, potassium 6.0, chloride is 97, CO2 is 13, BUN 76, creatinine is 2.93, troponin was negative 1, urinalysis was grossly infected. Patient was given a liter bolus in the emergency department, currently her IV fluids are running at 75 ML per hour, obvious signs of bleeding, no hematemesis, no melena, no hematochezia, patient has received 2 units of packed red blood cells, and this morning's hemoglobin is 5.8, she remains afebrile, white blood cell count is within normal limits. At 6.6, serum sodium is 120, potassium is 5.7, chloride is 99, CO2 is 14, BUN 75 and creatinine is 2.64. Patient was given a dose of Kayexalate and not sodium bicarb in the emergency department with improvement of patient's serum potassium, he is voiding, she is awake and alert, answering questions, she denies any acute complaints, no shortness of breath or chest pain, no urinary complaints. Review of Systems All systems: negative Constitutional: Reports lethargy, Reports weakness, Denies chills, Denies fever Eyes: denies blurred vision, denies pain Ears, nose, mouth and throat: Denies headache, Denies sore throat Cardiovascular: Denies chest pain, Denies shortness of breath Respiratory: Denies cough Gastrointestinal: Denies abdominal pain, Denies diarrhea, Denies nausea, Denies vomiting Genitourinary: Denies dysuria, Denies hematuria Musculoskeletal: Denies myalgias Integumentary: Denies pruritus, Denies rash Neurological: Denies numbness, Denies weakness Psychiatric: Denies anxiety, Denies depression Endocrine: Denies fatigue, Denies weight change Past Medical History Past Medical History: GI Bleed, Liver Disease Additional Past Medical History / Comment(s): ascites,"hernia", gi bleed/anemia -required blood transfusions History of Any Multi-Drug Resistant Organisms: None Reported Past Surgical History: Bariatric Surgery, Section Additional Past Surgical History / Comment(s): gastric bypass in 2002, recurrent paracentesis,colonoscopy, egd w/apc/variceal banding/bx Past Anesthesia/Blood Transfusion Reactions: No Reported Reaction Additional Past Anesthesia/Blood Transfusion Reaction / Comment(s): blood transfusions Past Psychological History: Anxiety Additional Psychological History / Comment(s): pt stated she lives with her son and significant other Smoking Status: Current every day smoker Past Alcohol Use History: Daily Additional Past Alcohol Use History / Comment(s): started smoking as teen smokes 1/2 ppd. pt stated she quit drinking 33-18 Past Drug Use History: None Reported - Past Family History Mother History Unknown: Yes Family Medical History: Congestive Heart Failure (CHF), COPD Father History Unknown: Yes Family Medical History: Diabetes Mellitus Medications and Allergies Home Medications Medication Instructions Recorded Confirmed Type ALPRAZolam [Xanax] 0.5 mg PO Q8HR PRN 11/06/18 01/29/19 History Pantoprazole [Protonix] 40 mg PO AC-BRKFST #30 tablet. 01/03/19 01/29/19 Rx Gabapentin [Neurontin] 100 mg PO TID PRN 01/29/19 01/29/19 History Allergies Allergy/AdvReac Type Severity Reaction Status Date / Time adhesive tape Allergy Rash/Hives Verified 01/29/19 13:34 Physical Exam Vitals: Vital Signs Temp Pulse Pulse Resp BP BP Pulse Ox 01/30/19 07:00 67 14 91/39 98 01/30/19 06:30 64 13 84/43 98 01/30/19 06:00 68 10 L 100/45 96 01/30/19 05:30 67 16 84/68 97 01/30/19 05:00 67 25 H 86/34 96 01/30/19 04:30 62 10 L 87/55 96 01/30/19 04:00 62 10 L 83/38 96 01/30/19 03:30 68 16 73/33 97 01/30/19 03:00 65 11 L 80/38 96 01/30/19 02:30 64 30 H 86/39 97 01/30/19 02:00 67 15 91/52 97 01/30/19 01:30 64 14 78/35 98 01/30/19 01:00 70 14 84/40 97 01/30/19 00:30 68 13 93/56 98 01/30/19 00:00 98.0 F 63 11 L 93/68 97 01/29/19 23:30 68 14 84/35 97 01/29/19 23:00 68 15 90/36 97 01/29/19 22:51 98.0 F 66 90/36 01/29/19 22:45 64 11 L 90/36 99 01/29/19 22:30 66 13 81/30 99 01/29/19 22:00 63 12 74/36 99 01/29/19 21:30 69 17 79/33 99 01/29/19 21:00 61 11 L 89/53 98 01/29/19 20:57 97.5 F L 62 81/59 01/29/19 20:30 68 14 87/51 100 01/29/19 20:27 97.8 F 61 12 89/53 01/29/19 20:17 97.6 F 68 87/51 01/29/19 20:01 97.6 F 66 12 87/51 01/29/19 20:00 97.2 F L 64 16 82/44 100 01/29/19 19:30 64 31 H 108/51 100 01/29/19 19:00 66 17 81/34 100 01/29/19 18:36 97.5 F L 68 14 81/34 100 01/29/19 18:33 96.8 F L 66 13 84/36 100 01/29/19 18:30 66 14 78/41 99 01/29/19 18:26 96.8 F L 66 13 78/41 100 05/14/19 18:01 66 14 77/36 100 01/29/19 17:30 96.8 F L 61 13 88/40 100 01/29/19 17:00 66 16 82/37 01/29/19 16:30 62 15 80/42 100 01/29/19 16:00 62 18 83/38 01/29/19 15:30 60 16 90/34 100 01/29/19 15:17 97.3 F L 63 19 95/35 100 Intake and Output 01/29/19 01/30/19 01/30/19 22:59 06:59 14:59 Intake Total 1305 525 75 Output Total 90 190 50 Balance 1215 335 25 Intake: IV 75 525 75 Sodium Chloride 0.9% 1, 75 525 75 000 ml @ 75 mls/hr IV . [id number] STA Rx#:[id number] Blood Product 1230 Rc As-1 Unit 310 [id number] Rc As-1 Unit 310 [id number] Output: Urine 90 190 50 Other: Voiding Method Indwelling Catheter Indwelling Catheter Weight 104 kg 106.4 kg GENERAL EXAM: Alert, obese, 48-year-old white female, resting in bed on room air, comfortable in no apparent distress. HEAD: Normocephalic/atraumatic. EYES: Normal reaction of pupils, equal size. Conjunctiva pink, sclera white. NOSE: Clear with pink turbinates. THROAT: No erythema or exudates. NECK: No masses, no JVD, no thyroid enlargement, no adenopathy. CHEST: No chest wall deformity. Symmetrical expansion. LUNGS: Equal air entry with no crackles, wheeze, rhonchi or dullness. CVS: Regular rate and rhythm, normal S1 and S2, no gallops, no murmurs, no rubs ABDOMEN: Soft, nontender, distended, but soft. No hepatosplenomegaly, normal bowel sounds, no guarding or rigidity. Paracentesis site in the right lower quadrant is covered with a dressing and patient states there has been some intermittent drainage from the paracentesis site which isn't currently draining right now, there is extensive yeast in the abdominal folds EXTREMITIES: No clubbing, no edema, no cyanosis, 2+ pulses and upper and lower extremities. MUSCULOSKELETAL: Muscle strength and tone normal. SPINE: No scoliosis or deformity SKIN: No rashes CENTRAL NERVOUS SYSTEM: Alert and oriented -3. No focal deficits, tone is norm al in all 4 extremities. PSYCHIATRIC: Alert and oriented -3. Appropriate affect. Intact judgment and insight. Results - Laboratory Findings CBC and BMP: 01/30/19 05:00 01/30/19 05:00 PT/INR, D-dimer PT 14.4 sec (9.0-12.0) H 01/29/19 15:39 INR 1.4 (<1.2) H 01/29/19 15:39 Abnormal lab findings: Abnormal Labs 01/29/19 01/29/19 01/29/19 15:39 15:39 15:39 RBC 1.64 L Hgb 4.6 L* D Hct 14.6 L* RDW 18.7 H Plt Count 145 L Lymphocytes # 0.9 L PT 14.4 H INR 1.4 H APTT 35.1 H Sodium 121 L Potassium 6.0 H Chloride 97 L Carbon Dioxide 13 L BUN 76 H Creatinine 2.93 H POC Glucose (mg/dL) Calcium 8.3 L Phosphorus Magnesium 2.9 H Total Bilirubin AST 73 H Total Protein 5.5 L Albumin 3.0 L Urine Appearance Urine Protein Urine Blood Ur Leukocyte Esterase Urine RBC Urine WBC Urine WBC Clumps Urine Bacteria Hyaline Casts Crossmatch 01/29/19 01/29/19 01/29/19 16:50 17:47 18:09 RBC Hgb Hct RDW Plt Count Lymphocytes # PT INR APTT Sodium Potassium Chloride Carbon Dioxide BUN Creatinine POC Glucose (mg/dL) 116 H Calcium Phosphorus Magnesium Total Bilirubin AST Total Protein Albumin Urine Appearance Turbid H Urine Protein 1+ H Urine Blood Small H Ur Leukocyte Esterase Large H Urine RBC 14 H Urine WBC >182 H Urine WBC Clumps Many H Urine Bacteria Many H Hyaline Casts 23 H Crossmatch See Detail 01/30/19 01/30/19 05:00 05:00 RBC 1.93 L Hgb 5.8 L* Hct 16.8 L* RDW 17.8 H Plt Count 130 L Lymphocytes # PT INR APTT Sodium 120 L Potassium 5.7 H Chloride Carbon Dioxide 14 L BUN 75 H Creatinine 2.64 H POC Glucose (mg/dL) Calcium 7.8 L Phosphorus 6.0 H Magnesium 2.7 H Total Bilirubin 3.8 H AST 77 H Total Protein 5.1 L Albumin 2.6 L Urine Appearance Urine Protein Urine Blood Ur Leukocyte Esterase Urine RBC Urine WBC Urine WBC Clumps Urine Bacteria Hyaline Casts Crossmatch - Diagnostic Findings Chest x-ray: report reviewed Additional studies: EKG reviewed Assessment and Plan Plan: Assessment #1. Hypotension following a large volume paracentesis, multifactorial, but largely hypovolemic. In part could be do to underlying urinary tract infection, anemia #2. Acute urinary tract infection #3. Acute on chronic anemia, with no obvious signs of bleeding. Requiring transfusion with a total of 4 units of blood #4. Alcoholic liver cirrhosis with chronic ascites, and weekly large-volume paracentesis #5. Hyponatremia #6. Hyperkalemia #7. Anion gap metabolic acidosis, likely related to acute kidney injury #8. Chronic kidney disease #9. Chronic nicotine dependence #10. History of alcohol dependence, currently in remission Plan: We'll stop the IV fluids, patient has been adequately fluid resuscitated, will receive another 2 units of packed red blood cells for a total of 4 units of packed red blood cells, no obvious signs of bleeding, we will consult GI service for chronic liver disease with chronic ascites, and anemia. Continue the PPI therapy, hemodynamically patient is more stable, we will add Rocephin for empiric antibiotic coverage, we'll send a urine culture. Will remain in the intensive care unit, monitoring. For ALLERGY consultation is pending. GI and DVT prophylaxis, I performed a history & physical examination of the patient and discussed their management with my nurse practitioner, Ban Al. I reviewed the nurse practitioner's note and agree with the documented findings and plan of care. Lung sounds are positive for clear breath sounds. The findings and the impression was discussed with the patient. I attest to the documentation by the nurse practitioner. Time with Patient: Greater than 30
--- NOTE | 2019-01-30 12:52 | P.CONS ---
History of Present Illness - Reason for Consult Consult date: 01/30/19 cirrhosis Requesting physician: Louie Herrera - Chief Complaint low blood pressure - History of Present Illness 48-year-old female with a history of alcohol liver cirrhosis, portal hypertension, chronic ascites requiring multiple paracentesis on a weekly basis, hepatic encephalopathy, anemia of chronic disease, esophageal varices, Willie-en-Y gastric bypass, history of small bowel AVM presents, hyponatremia, with reports of low blood pressure after receiving paracentesis yesterday 5 L removed. Patient received albumin. Additionally patient receiving antibiotics for suspected UTI. Sodium 121. Potassium 6. BUN 76. Creatinine 2.9. Total bilirubin 1.2. AST 7 3. ALT 27. AP 98. White count 7.7. Hemoglobin 4.6. MCV 89. Platelet 145. INR 1.3. Received 2 units of blood current hemoglobin is 5.8. Denies abdominal pain. Denies hematemesis hematochezia or melena. No fevers. Review of Systems Constitutional: Denies fever, chills, sweats, weight gain, or loss. HEENT: Negative for migraines, blurred vision or loss, earaches, drainage, tinnitus, oral mucosal lesions, dysphagia, or odynophagia. CARDIAC: Negative for chest pain, arrhythmias, or palpitation. RESPIRATORY: Negative for shortness of breath, hemoptysis, cough, or sputum production. GI: See HPI for pertinent findings. : Negative for hematuria, urgency, frequency, polyuria, or dysuria. GYNc: Denies possibility of . Negative vaginal discharge. MUSCULOSKELETAL: Negative for muscle aches, swelling, arthritis, and arthralgias. NEUROLOGIC: Negative for stroke or TIA. ENDOCRINE: Negative for thyroid problems. SKIN: Negative for rash or itching. PSYCHIATRIC: Negative history for depression and anxiety Past Medical History Past Medical History: GI Bleed, Liver Disease Additional Past Medical History / Comment(s): ascites,"hernia", gi bleed/anemia -required blood transfusions History of Any Multi-Drug Resistant Organisms: None Reported Past Surgical History: Bariatric Surgery, Section Additional Past Surgical History / Comment(s): gastric bypass in 2002, recurrent paracentesis,colonoscopy, egd w/apc/variceal banding/bx Past Anesthesia/Blood Transfusion Reactions: No Reported Reaction Additional Past Anesthesia/Blood Transfusion Reaction / Comm: blood transfusions Past Psychological History: Anxiety Additional Psychological History / Comment(s): pt stated she lives with her son and significant other Smoking Status: Current every day smoker Past Alcohol Use History: Daily Additional Past Alcohol Use History / Comment(s): started smoking as teen smokes 1/2 ppd. pt stated she quit drinking 3 Past Drug Use History: None Reported - Past Family History Mother History Unknown: Yes Family Medical History: Congestive Heart Failure (CHF), COPD Father History Unknown: Yes Family Medical History: Diabetes Mellitus Medications and Allergies Home Medications Medication Instructions Recorded Confirmed Type ALPRAZolam [Xanax] 0.5 mg PO Q8HR PRN 11/06/18 01/29/19 History Pantoprazole [Protonix] 40 mg PO AC-BRKFST #30 tablet. 01/03/19 01/29/19 Rx Gabapentin [Neurontin] 100 mg PO TID PRN 01/29/19 01/29/19 History Allergies Allergy/AdvReac Type Severity Reaction Status Date / Time adhesive tape Allergy Rash/Hives Verified 01/29/19 13:34 Physical Exam Vitals: Vital Signs Temp Pulse Pulse Resp BP BP Pulse Ox 01/30/19 12:01 98.0 F 75 12 96/46 98 01/30/19 12:00 64 12 95/47 98 01/30/19 11:31 98 F 66 15 95/47 98 01/30/19 11:21 98.0 F 65 12 78/52 98 01/30/19 11:00 98.0 F 68 14 88/52 97 01/30/19 10:00 65 18 88/44 99 01/30/19 09:00 70 22 75/49 86 L 01/30/19 08:00 97.5 F L 69 15 84/39 98 01/30/19 07:00 67 14 91/39 98 01/30/19 06:30 64 13 84/43 98 01/30/19 06:00 68 10 L 100/45 96 01/30/19 05:30 67 16 84/68 97 01/30/19 05:00 67 25 H 86/34 96 01/30/19 04:30 62 10 L 87/55 96 01/30/19 04:00 62 10 L 83/38 96 01/30/19 03:30 68 16 73/33 97 01/30/19 03:00 65 11 L 80/38 96 01/30/19 02:30 64 30 H 86/39 97 01/30/19 02:00 67 15 91/52 97 01/30/19 01:30 64 14 78/35 98 01/30/19 01:00 70 14 84/40 97 01/30/19 00:30 68 13 93/56 98 01/30/19 00:00 98.0 F 63 11 L 93/68 97 01/29/19 23:30 68 14 84/35 97 01/29/19 23:00 68 15 90/36 97 01/29/19 22:51 98.0 F 66 90/36 01/29/19 22:45 64 11 L 90/36 99 01/29/19 22:30 66 13 81/30 99 01/29/19 22:00 63 12 74/36 99 01/29/19 21:30 69 17 79/33 99 01/29/19 21:00 61 11 L 89/53 98 01/29/19 20:57 97.5 F L 62 81/59 01/29/19 20:30 68 14 87/51 100 01/29/19 20:27 97.8 F 61 12 89/53 01/29/19 20:17 97.6 F 68 87/51 01/29/19 20:01 97.6 F 66 12 87/51 01/29/19 20:00 97.2 F L 64 16 82/44 100 01/29/19 19:30 64 31 H 108/51 100 01/29/19 19:00 66 17 81/34 100 01/29/19 18:36 97.5 F L 68 14 81/34 100 01/29/19 18:33 96.8 F L 66 13 84/36 100 01/29/19 18:30 66 14 78/41 99 01/29/19 18:26 96.8 F L 66 13 78/41 100 01/29/19 18:01 66 14 77/36 100 01/29/19 17:30 96.8 F L 61 13 88/40 100 01/29/19 17:00 66 16 82/37 01/29/19 16:30 62 15 80/42 100 01/29/19 16:00 62 18 83/38 01/29/19 15:30 60 16 90/34 100 01/29/19 15:17 97.3 F L 63 19 95/35 100 Intake and Output 01/29/19 01/30/19 01/30/19 22:59 06:59 14:59 Intake Total 8301 043 5702 Output Total 90 190 200 Balance 1215 335 955 Intake: IV 75 525 375 Sodium Chloride 0.9% 1, 75 525 375 000 ml @ 75 mls/hr IV . [id number] STA Rx#:[id number] Oral 480 Blood Product 1230 300 Rc As-1 Unit 310 [id number] Rc As-1 Unit 0 [id number] Rc As-1 Unit 310 [id number] Output: Urine 90 190 200 Other: Voiding Method Indwelling Catheter Indwelling Catheter Weight 104 kg 106.4 kg 106.4 kg General appearance: The patient is alert, oriented, in no acute distress. Cachectic appearance appears weak. HET: Head is normocephalic and atraumatic. Pupils are equal and reactive. Oropharynx is clear without lesions. Scattered facial telangiectasias. Neck: Supple without lymphadenopathy. Trachea midline. Heart: S1 S2. Regular rate and rhythm. Lungs: No crackles or wheezes are heard. Abdomen: Paracentesis site leaking ascitic fluid. Soft, nontender, mildly dist ended no appreciable ascites with bowel sounds. No peritoneal signs. No palpable organomegaly or masses. Extremities: +2 bilaterally lower extremity edema and no asterixis. Neurological: No focal deficits. Strength and sensation are grossly intact. Results CBC & Chem 7: 01/31/19 04:29 01/31/19 04:29 Labs: Abnormal Lab Results - Last 24 Hours (Table) 01/29/19 01/29/19 01/29/19 Range/Units 15:39 15:39 15:39 RBC 1.64 L (3.80-5.40) m/uL Hgb 4.6 L* D (11.4-16.0) gm/dL Hct 14.6 L* (34.0-46.0) % RDW 18.7 H (11.5-15.5) % Plt Count 145 L (150-450) k/uL Lymphocytes # 0.9 L (1.0-4.8) k/uL PT 14.4 H (9.0-12.0) sec INR 1.4 H (<1.2) APTT 35.1 H (22.0-30.0) sec Sodium 121 L (137-145) mmol/L Potassium 6.0 H (3.5-5.1) mmol/L Chloride 97 L (98-107) mmol/L Carbon Dioxide 13 L (22-30) mmol/L BUN 76 H (7-17) mg/dL Creatinine 2.93 H (0.52-1.04) mg/dL POC Glucose (mg/dL) (75-99) mg/dL Calcium 8.3 L (8.4-10.2) mg/dL Phosphorus (2.5-4.5) mg/dL Magnesium 2.9 H (1.6-2.3) mg/dL Total Bilirubin (0.2-1.3) mg/dL AST 73 H (14-36) U/L Total Protein 5.5 L (6.3-8.2) g/dL Albumin 3.0 L (3.5-5.0) g/dL Urine Appearance (Clear) Urine Protein (Negative) Urine Blood (Negative) Ur Leukocyte Esterase (Negative) Urine RBC (0-5) /hpf Urine WBC (0-5) /hpf Urine WBC Clumps (None) /hpf Urine Bacteria (None) /hpf Hyaline Casts (0-2) /lpf Crossmatch 01/29/19 01/29/19 01/29/19 Range/Units 16:50 17:47 18:09 RBC (3.80-5.40) m/uL Hgb (11.4-16.0) gm/dL Hct (34.0-46.0) % RDW (11.5-15.5) % Plt Count (150-450) k/uL Lymphocytes # (1.0-4.8) k/uL PT (9.0-12.0) sec INR (<1.2) APTT (22.0-30.0) sec Sodium (137-145) mmol/L Potassium (3.5-5.1) mmol/L Chloride (98-107) mmol/L Carbon Dioxide (22-30) mmol/L BUN (7-17) mg/dL Creatinine (0.52-1.04) mg/dL POC Glucose (mg/dL) 116 H (75-99) mg/dL Calcium (8.4-10.2) mg/dL Phosphorus (2.5-4.5) mg/dL Magnesium (1.6-2.3) mg/dL Total Bilirubin (0.2-1.3) mg/dL AST (14-36) U/L Total Protein (6.3-8.2) g/dL Albumin (3.5-5.0) g/dL Urine Appearance Turbid H (Clear) Urine Protein 1+ H (Negative) Urine Blood Small H (Negative) Ur Leukocyte Esterase Large H (Negative) Urine RBC 14 H (0-5) /hpf Urine WBC >182 H (0-5) /hpf Urine WBC Clumps Many H (None) /hpf Urine Bacteria Many H (None) /hpf Hyaline Casts 23 H (0-2) /lpf Crossmatch See Detail 01/30/19 01/30/19 Range/Units 05:00 05:00 RBC 1.93 L (3.80-5.40) m/uL Hgb 5.8 L* (11.4-16.0) gm/dL Hct 16.8 L* (34.0-46.0) % RDW 17.8 H (11.5-15.5) % Plt Count 130 L (150-450) k/uL Lymphocytes # (1.0-4.8) k/uL PT (9.0-12.0) sec INR (<1.2) APTT (22.0-30.0) sec Sodium 120 L (137-145) mmol/L Potassium 5.7 H (3.5-5.1) mmol/L Chloride (98-107) mmol/L Carbon Dioxide 14 L (22-30) mmol/L BUN 75 H (7-17) mg/dL Creatinine 2.64 H (0.52-1.04) mg/dL POC Glucose (mg/dL) (75-99) mg/dL Calcium 7.8 L (8.4-10.2) mg/dL Phosphorus 6.0 H (2.5-4.5) mg/dL Magnesium 2.7 H (1.6-2.3) mg/dL Total Bilirubin 3.8 H (0.2-1.3) mg/dL AST 77 H (14-36) U/L Total Protein 5.1 L (6.3-8.2) g/dL Albumin 2.6 L (3.5-5.0) g/dL Urine Appearance (Clear) Urine Protein (Negative) Urine Blood (Negative) Ur Leukocyte Esterase (Negative) Urine RBC (0-5) /hpf Urine WBC (0-5) /hpf Urine WBC Clumps (None) /hpf Urine Bacteria (None) /hpf Hyaline Casts (0-2) /lpf Crossmatch Assessment and Plan (1) Cirrhosis of liver with ascites Current Visit: Yes Status: Acute Code(s): K74.60 - UNSPECIFIED CIRRHOSIS OF LIVER; R18.8 - OTHER ASCITES SNOMED Code(s): 69700518 (2) Hypotension Current Visit: Yes Status: Acute Code(s): I95.9 - HYPOTENSION, UNSPECIFIED SNOMED Code(s): 27724994 (3) Chronic anemia Narrative/Plan: Acute on chronic no active GI bleeding Current Visit: Yes Status: Acute Code(s): D64.9 - ANEMIA, UNSPECIFIED SNOMED Code(s): 617867426 (4) History of ETOH abuse Current Visit: Yes Status: Acute Code(s): F10.11 - ALCOHOL ABUSE, IN REMISSION SNOMED Code(s): 305438189 (5) Hyponatremia Current Visit: Yes Status: Acute Code(s): E87.1 - HYPO-OSMOLALITY AND HYPONATREMIA SNOMED Code(s): 72873437 (6) Coagulopathy Current Visit: Yes Status: Acute Code(s): D68.9 - COAGULATION DEFECT, UNSPECIFIED SNOMED Code(s): 59150999 (7) History of Willie-en-Y gastric bypass Current Visit: No Status: Resolved Code(s): Z98.84 - BARIATRIC SURGERY STATUS SNOMED Code(s): 232016020 (8) Portal hypertension Current Visit: Yes Status: Acute Code(s): K76.6 - PORTAL HYPERTENSION SNOMED Code(s): 45277111 (9) History of esophageal varices Current Visit: Yes Status: Acute Code(s): Z87.19 - PERSONAL HISTORY OF OTHER DISEASES OF THE DIGESTIVE SYSTEM SNOMED Code(s): 92063020093504475 (10) UTI (urinary tract infection) Current Visit: Yes Status: Acute Code(s): N39.0 - URINARY TRACT INFECTION, SITE NOT SPECIFIED SNOMED Code(s): 39583327 Plan: 1. Symptomatic supportive measures. Blood transfusion as needed. CBC monitoring. Protonix 40 mg daily. Rocephin 1 g daily. Inpatient endoscopic exams not planned at this time unless patient manifests active GI bleeding. Thank you for this kind referral and the opportunity to participate in the care of your patient. This consultation was discussed with Dr. Carmona. The impression and plan of care have been directed as dictated.
[2019-01-30] MEDS ORDERED: DEXTROSE 5% IN WATER 1,000 ML with SODIUM BICARB (1 MEQ/ML) 150 ML IV SCH (13:15)
--- NOTE | 2019-01-30 14:53 | P.HPIM ---
History of Present Illness H&P Date: 01/30/19 Chief Complaint: Lethargy This is a 48-like female who presented to the emergency room after she had a 5 L ascitic fluid removal for paracenteses performed 01/29/2019. She states that she has been feeling lethargic and weak even prior to the procedure. Post procedure she was hypotensive and was given albumin. Since her symptoms did not improve she was admitted through the emergency room to the intensive care unit. At the time of examination patient feels better, her lethargy has improved. She denies chest pain, no abdominal pain, no nausea no vomiting, she denies dysuria hematuria hematemesis or hematochezia. She denies shortness of breath, no diarrhea, no loss of consciousness. Patient gets weekly paracenteses. Review of Systems 10 systems reviewed pertinent positive and negative findings as in the HPI, no chest pain no abdominal pain Past Medical History Past Medical History: GI Bleed, Liver Disease Additional Past Medical History / Comment(s): ascites,"hernia", gi bleed/anemia -required blood transfusions History of Any Multi-Drug Resistant Organisms: None Reported Past Surgical History: Bariatric Surgery, Section Additional Past Surgical History / Comment(s): gastric bypass in 2002, recurrent paracentesis,colonoscopy, egd w/apc/variceal banding/bx Past Anesthesia/Blood Transfusion Reactions: No Reported Reaction Additional Past Anesthesia/Blood Transfusion Reaction / Comment(s): blood transfusions Past Psychological History: Anxiety Additional Psychological History / Comment(s): pt stated she lives with her son and significant other Smoking Status: Current every day smoker Past Alcohol Use History: Daily Additional Past Alcohol Use History / Comment(s): started smoking as teen smokes 1/2 ppd. pt stated she quit drinking 3-3-18 Past Drug Use History: None Reported - Past Family History Mother History Unknown: Yes Family Medical History: Congestive Heart Failure (CHF), COPD Father History Unknown: Yes Family Medical History: Diabetes Mellitus Medications and Allergies Home Medications Medication Instructions Recorded Confirmed Type ALPRAZolam [Xanax] 0.5 mg PO Q8HR PRN 11/06/18 01/29/19 History Pantoprazole [Protonix] 40 mg PO ERICKKFSJosse #30 tablet. 01/03/19 01/29/19 Rx Gabapentin [Neurontin] 100 mg PO TID PRN 01/29/19 01/29/19 History Allergies Allergy/AdvReac Type Severity Reaction Status Date / Time adhesive tape Allergy Rash/Hives Verified 01/29/19 13:34 Physical Exam Vitals: Vital Signs Temp Pulse Pulse Resp BP BP Pulse Ox 01/30/19 14:00 68 15 100/45 99 01/30/19 13:00 66 14 99/45 97 01/30/19 12:01 98.0 F 75 12 96/46 98 01/30/19 12:00 64 12 95/47 98 01/30/19 11:31 98 F 66 15 95/47 98 01/30/19 11:21 98.0 F 65 12 78/52 98 01/30/19 11:00 98.0 F 68 14 88/52 97 01/30/19 10:00 65 18 88/44 99 01/30/19 09:00 70 22 75/49 86 L 01/30/19 08:00 97.5 F L 69 12 84/39 98 01/30/19 07:00 67 14 91/39 98 01/30/19 06:30 64 13 84/43 98 01/30/19 06:00 68 10 L 100/45 96 01/30/19 05:30 67 16 84/68 97 01/30/19 05:00 67 25 H 86/34 96 01/30/19 04:30 62 10 L 87/55 96 01/30/19 04:00 62 10 L 83/38 96 01/30/19 03:30 68 16 73/33 97 01/30/19 03:00 65 11 L 80/38 96 01/30/19 02:30 64 30 H 86/39 97 01/30/19 02:00 67 15 91/52 97 01/30/19 01:30 64 14 78/35 98 01/30/19 01:00 70 14 84/40 97 01/30/19 00:30 68 13 93/56 98 01/30/19 00:00 98.0 F 63 11 L 93/68 97 01/29/19 23:30 68 14 84/35 97 01/29/19 23:00 68 15 90/36 97 01/29/19 22:51 98.0 F 66 90/36 01/29/19 22:45 64 11 L 90/36 99 01/29/19 22:30 66 13 81/30 99 01/29/19 22:00 63 12 74/36 99 01/29/19 21:30 69 17 79/33 99 01/29/19 21:00 61 11 L 89/53 98 01/29/19 20:57 97.5 F L 62 81/59 01/29/19 20:30 68 14 87/51 100 01/29/19 20:27 97.8 F 61 12 89/53 01/29/19 20:17 97.6 F 68 87/51 01/29/19 20:01 97.6 F 66 12 87/51 01/29/19 20:00 97.2 F L 64 16 82/44 100 01/29/19 19:30 64 31 H 108/51 100 01/29/19 19:00 66 17 81/34 100 01/29/19 18:36 97.5 F L 68 14 81/34 100 01/29/19 18:33 96.8 F L 66 13 84/36 100 01/29/19 18:30 66 14 78/41 99 01/29/19 18:26 96.8 F L 66 13 78/41 100 01/29/19 18:01 66 14 77/36 100 01/29/19 17:30 96.8 F L 61 13 88/40 100 01/29/19 17:00 66 16 82/37 01/29/19 16:30 62 15 80/42 100 01/29/19 16:00 62 18 83/38 01/29/19 15:30 60 16 90/34 100 01/29/19 15:17 97.3 F L 63 19 95/35 100 Intake and Output 01/29/19 01/30/19 01/30/19 22:59 06:59 14:59 Intake Total 0987 282 8835 Output Total 90 190 245 Balance 0636 862 9886 Intake: IV 75 525 375 Sodium Chloride 0.9% 1, 75 525 375 000 ml @ 75 mls/hr IV . [id number] STA Rx#:[id number] Oral 480 Blood Product 1230 910 Rc As-1 Unit 0 [id number] Rc As-1 Unit 310 [id number] Rc As-1 Unit 310 [id number] Rc As-1 Unit 310 [id number] Output: Urine 90 190 245 Other: Voiding Method Indwelling Catheter Indwelling Catheter Indwelling Catheter Weight 104 kg 106.4 kg 106.4 kg Constitutional: No acute distress, conversant, pleasant Eyes: Anicteric sclerae, moist conjunctiva, PERRLA ENMT: NC/AT,, no erythema, exudates Neck:Supple, or JVD, No carotid bruits; No thyromegaly Lungs: Clear to auscultation, Clear to percussion, Normal respiratory effort, no accessory muscle use Cardiovascular: Heart regular in rate and rhythm, No murmurs, gallops, or rubs no peripheral edema Abdominal: Soft Nontender, nom distended, no guarding, no rebound or rigidity Skin: Normal temperature, tone, texture Extremities:No digital cyanosis No clubbing, 1+ lower extremity edema bilateral Psychiatric: Alert and oriented to person, place and time Neuro: Muscles Strength 5/5 in all 4 extremities,Cranial nerves II-XII grossly intact. No focal sensory deficits Results CBC & Chem 7: 01/30/19 05:00 01/30/19 05:00 Labs: Abnormal Lab Results - Last 24 Hours (Table) 01/29/19 01/29/19 01/29/19 Range/Units 15:39 15:39 15:39 RBC 1.64 L (3.80-5.40) m/uL Hgb 4.6 L* D (11.4-16.0) gm/dL Hct 14.6 L* (34.0-46.0) % RDW 18.7 H (11.5-15.5) % Plt Count 145 L (150-450) k/uL Lymphocytes # 0.9 L (1.0-4.8) k/uL PT 14.4 H (9.0-12.0) sec INR 1.4 H (<1.2) APTT 35.1 H (22.0-30.0) sec Sodium 121 L (137-145) mmol/L Potassium 6.0 H (3.5-5.1) mmol/L Chloride 97 L (98-107) mmol/L Carbon Dioxide 13 L (22-30) mmol/L BUN 76 H (7-17) mg/dL Creatinine 2.93 H (0.52-1.04) mg/dL POC Glucose (mg/dL) (75-99) mg/dL Calcium 8.3 L (8.4-10.2) mg/dL Phosphorus (2.5-4.5) mg/dL Magnesium 2.9 H (1.6-2.3) mg/dL Total Bilirubin (0.2-1.3) mg/dL AST 73 H (14-36) U/L Total Protein 5.5 L (6.3-8.2) g/dL Albumin 3.0 L (3.5-5.0) g/dL Urine Appearance (Clear) Urine Protein (Negative) Urine Blood (Negative) Ur Leukocyte Esterase (Negative) Urine RBC (0-5) /hpf Urine WBC (0-5) /hpf Urine WBC Clumps (None) /hpf Urine Bacteria (None) /hpf Hyaline Casts (0-2) /lpf Crossmatch 01/29/19 01/29/19 01/29/19 Range/Units 16:50 17:47 18:09 RBC (3.80-5.40) m/uL Hgb (11.4-16.0) gm/dL Hct (34.0-46.0) % RDW (11.5-15.5) % Plt Count (150-450) k/uL Lymphocytes # (1.0-4.8) k/uL PT (9.0-12.0) sec INR (<1.2) APTT (22.0-30.0) sec Sodium (137-145) mmol/L Potassium (3.5-5.1) mmol/L Chloride (98-107) mmol/L Carbon Dioxide (22-30) mmol/L BUN (7-17) mg/dL Creatinine (0.52-1.04) mg/dL POC Glucose (mg/dL) 116 H (75-99) mg/dL Calcium (8.4-10.2) mg/dL Phosphorus (2.5-4.5) mg/dL Magnesium (1.6-2.3) mg/dL Total Bilirubin (0.2-1.3) mg/dL AST (14-36) U/L Total Protein (6.3-8.2) g/dL Albumin (3.5-5.0) g/dL Urine Appearance Turbid H (Clear) Urine Protein 1+ H (Negative) Urine Blood Small H (Negative) Ur Leukocyte Esterase Large H (Negative) Urine RBC 14 H (0-5) /hpf Urine WBC >182 H (0-5) /hpf Urine WBC Clumps Many H (None) /hpf Urine Bacteria Many H (None) /hpf Hyaline Casts 23 H (0-2) /lpf Crossmatch See Detail 01/30/19 01/30/19 Range/Units 05:00 05:00 RBC 1.93 L (3.80-5.40) m/uL Hgb 5.8 L* (11.4-16.0) gm/dL Hct 16.8 L* (34.0-46.0) % RDW 17.8 H (11.5-15.5) % Plt Count 130 L (150-450) k/uL Lymphocytes # (1.0-4.8) k/uL PT (9.0-12.0) sec INR (<1.2) APTT (22.0-30.0) sec Sodium 120 L (137-145) mmol/L Potassium 5.7 H (3.5-5.1) mmol/L Chloride (98-107) mmol/L Carbon Dioxide 14 L (22-30) mmol/L BUN 75 H (7-17) mg/dL Creatinine 2.64 H (0.52-1.04) mg/dL POC Glucose (mg/dL) (75-99) mg/dL Calcium 7.8 L (8.4-10.2) mg/dL Phosphorus 6.0 H (2.5-4.5) mg/dL Magnesium 2.7 H (1.6-2.3) mg/dL Total Bilirubin 3.8 H (0.2-1.3) mg/dL AST 77 H (14-36) U/L Total Protein 5.1 L (6.3-8.2) g/dL Albumin 2.6 L (3.5-5.0) g/dL Urine Appearance (Clear) Urine Protein (Negative) Urine Blood (Negative) Ur Leukocyte Esterase (Negative) Urine RBC (0-5) /hpf Urine WBC (0-5) /hpf Urine WBC Clumps (None) /hpf Urine Bacteria (None) /hpf Hyaline Casts (0-2) /lpf Crossmatch Thrombosis Risk Factor Assmnt - Choose All That Apply Any of the Below Risk Factors Present?: Yes Each Factor Represents 1 point: Age 41-60 years Other Risk Factors: No Other congenital or acquired thrombophilia - If yes, enter type in comment: No Thrombosis Risk Factor Assessment Total Risk Factor Score: 1 Thrombosis Risk Factor Assessment Level: Low Risk Assessment and Plan Plan: 1. Hypotension status post paracenteses 5 L, hypovolemia and acute UTI: Continue IV fluid resuscitation and monitor. 2. Acute UTI unspecified organism R location: Continue IV Rocephin, pending blood and urine cultures 3. Acute on chronic anemia likely secondary to liver disease: She has received 2 units of packed RBCs yesterday and is receiving 2 more units, hemoglobin 4.6 yesterday, improved to 5.8 today prior to transfusion. 4. Chronic thrombocytopenia secondary to liver disease: Continue to monitor, platelets 1:30 5. Obesity BMI 35.7 6. Hyponatremia: hypovolemic and secondary to liver disease: Continue IV fluids with bicarbonate-containing solution, nephrology following 7. Hyperkalemia secondary to acute kidney injury, continue bicarbonate- containing solution, IV Lasix as tolerated. 8. Metabolic acidosis, bicarbonate 14 secondary to acute kidney injury, continue bicarbonate-containing solution and monitor 9. Acute kidney injury: Creatinine 2.6 secondary to hypovolemia: Continue IV fluid resuscitation, avoid nephrotoxins. 10. Alcoholic liver cirrhosis: Requiring weekly paracenteses. 11. Alcohol use without evidence of withdrawal: Serum treatment 12. Diabetes type 2 with peripheral neuropathy: Continue outpatient gabapentin 13. Tobacco use without evidence of withdrawal, nicotine patch as indicated. 14. DVT prophylaxis: SCDs disposition: Home in 2-3 days
[2019-01-30] MEDS ORDERED: GABAPENTIN 100 MG CAP PO PRN (15:00)
[2019-01-30] MEDS ORDERED: FUROSEMIDE 10 MG/ML 4 ML VIAL IV STA (16:55)
[2019-01-30] MEDS: MIDODRINE 5 MG TAB PO SCH (16:57)
[2019-01-30 17:54] LABS: Calcium 7.8 mg/dL (8.4-10.2); Potassium 5.4 mmol/L (3.5-5.1)
[2019-01-30] MEDS ORDERED: TOLVAPTAN 15 MG 1/2 TABLET PO ONE (18:30)
[2019-01-30] MEDS ORDERED: SODIUM CHLORIDE 0.45% 1,000 ML with SODIUM BICARB (1 MEQ/ML) 150 ML IV ONE ×2 (19:30)
--- NOTE | 2019-01-30 22:23 | CONS ---
CONSULTATION REASON FOR CONSULT: Hyperkalemia, hyponatremia, acute kidney injury. HISTORY OF PRESENT ILLNESS: The patient is a 48-year-old female with past medical history of chronic liver disease requiring frequent paracenteses. Patient also has a history of chronic hyponatremia. She is status post paracenteses done yesterday about 5 L. Labs showed a serum sodium of 121 yesterday, today it is at 120 and the patient's potassium was at 6 mEq/L. It is down to 5.7 today. Overall, patient states she feels weak and fatigued. She denied any constipation. She also has an underlying urinary tract infection. The patient appears acidotic, CO2 is at 13 and 14. No ongoing diarrhea according to the patient, the creatinine was elevated at 2.9 from baseline of about 1.4 mg/dL. PAST MEDICAL HISTORY: Chronic liver disease, chronic hyponatremia, chronic kidney disease stage 3 with multiple episodes of acute kidney injury, which usually improves with fluid administration. Previous history of GI bleed. PAST SURGICAL HISTORY: Past surgical history includes bariatric surgery, C section, gastric bypass, recurrent paracenteses, colonoscopy, EGD, history of any variceal bleeding. SOCIAL HISTORY: Patient is a smoker. No history of drug abuse or alcohol abuse. MEDICATIONS: Prior to admission included Protonix, Neurontin, Xanax. REVIEW OF SYSTEMS: As per HPI. Other systems negative. PHYSICAL EXAMINATION: Patient is comfortable, awake, alert, oriented x3, not in any acute distress. Blood pressure was 95/47, heart rate 66 per minute. She is afebrile. Examination of the heart S1, S2. Examination of the lungs bilateral breath sounds are heard. Abdomen is soft, nontender. Exam of lower extremities shows edema 1+ bilaterally. INS[employer] exam is grossly intact. LAB: Show sodium 120, potassium 5.7, chloride 99, CO2 is 14, BUN 75, , hemoglobin 5.8, WBC 6.6, platelet count 130,000. ASSESSMENT: 1. Acute kidney injury secondary to hypotension, acute anemia, nonoliguric, slightly improved from yesterday. 2. Hyperkalemia associated with acute kidney injury as well as possible underlying gastrointestinal bleed and also secondary to metabolic acidosis. 3. Hyponatremia which is mainly chronic. Patient is maintained on saline. Her sodium has not improved from yesterday. I will give her a dose of IV Lasix and we will repeat labs this evening. 4. Chronic liver disease and liver cirrhosis with multiple paracentesis. 5. Anemia, most likely secondary to underlying gastrointestinal bleed. 6. Metabolic acidosis, non gap secondary to renal failure and possibly related to loose bowel movements associated with lactulose as outpatient. Currently patient is not on it. 7. Urinary tract infection maintained on antibiotics. 8. Hyperphosphatemia associated with acute kidney injury. Add phosphate binders if phosphorus remains elevated in the next few days. PLAN: Start IV bicarb, IV Lasix x1. Add midodrine for low blood pressure. Repeat sodium this evening and the patient on antibiotics. Transfuse packed RBCs and repeat phosphorus down the road. If it remains elevated, we will add phosphate binders and continue to hold off on magnesium supplement. Thank you for this consultation. We will continue to follow the patient with you during her hospitalization. MMODL / IJN: [id number] /
[2019-01-31 05:29] LABS: Anisocytosis Slight; Basophils % (A) 0 %; Eosinophils # (A) 0.2 k/uL (0-0.7); Eosinophils % (A) 2 %; HCT 21.4 % (34.0-46.0); HGB 7.1 gm/dL (11.4-16.0); Lymphocytes # (A) 0.9 k/uL (1.0-4.8); Lymphocytes % (A) 12 %; MCH 27.8 pg (25.0-35.0); MCHC 33.3 g/dL (31.0-37.0); MCV 83.6 fL (80.0-100.0); Mean Platelet Volume 7.6; Monocytes # (A) 0.7 k/uL (0-1.0); Monocytes % (A) 9 %; Neutrophils # (A) 5.6 k/uL (1.3-7.7); Neutrophils % (A) 75 %; Platelet Count 129 k/uL (150-450); Poikilocytosis Slight; RBC 2.56 m/uL (3.80-5.40); RDW 18.3 % (11.5-15.5); WBC 7.4 k/uL (3.8-10.6)
[2019-01-31 05:52] LABS: Albumin 2.4 g/dL (3.5-5.0); Calcium 7.9 mg/dL (8.4-10.2); Magnesium 2.6 mg/dL (1.6-2.3); Phosphorus 5.1 mg/dL (2.5-4.5); Potassium 5.1 mmol/L (3.5-5.1); Total Protein 4.9 g/dL (6.3-8.2)
[2019-01-31] MEDS: MIDODRINE 5 MG TAB PO SCH ×3 (07:04→17:20)
[2019-01-31] MEDS: PANTOPRAZOLE 40 MG TABLET PO SCH (07:06)
--- NOTE | 2019-01-31 08:48 | P.PN ---
Subjective Progress Note Date: 01/31/19 Principal diagnosis: Hypotension, urinary tract infection, anemia This is a 48-year-old white female patient of Dr. Srinivas Jones, who presented to the emergency department on 01/29/2019 following her routine weekly paracentesis with removal of 5 L of ascitic fluid, following the procedure patient became hypotensive, she was given albumin was procedure, she remains hypotensive and she was sent to the emergency department for evaluation. She has history of alcoholic liver disease, and that she has weekly paracentesis, with removal of average of 5-7 L of fluid. Her EtOH use is currently in remission. Other medical history includes chronic kidney disease, previous history of GI bleeding, esophageal varices with banding, gastric bypass surgery in 2002, anxiety, and current nicotine dependence. Patient denied any fever or chills. Afebrile. Denies any pulmonary complaints, denies any urinary complaints, lab work was drawn and showed white blood cell count 7.7, hemoglobin 4.6, INR is 1.4, sodium is 121, potassium 6.0, chloride is 97, CO2 is 13, BUN 76, creatinine is 2.93, troponin was negative 1, urinalysis was grossly infected. Patient was given a liter bolus in the emergency department, currently her IV fluids are running at 75 ML per hour, obvious signs of bleeding, no hematemesis, no melena, no hematochezia, patient has received 2 units of packed red blood cells, and this morning's hemoglobin is 5.8, she remains afebrile, white blood cell count is within normal limits. At 6.6, serum sodium is 120, potassium is 5.7, chloride is 99, CO2 is 14, BUN 75 and creatinine is 2.64. Patient was given a dose of Kayexalate and not sodium bicarb in the emergency department with improvement of patient's serum potassium, he is voiding, she is awake and alert, answering questions, she denies any acute complaints, no shortness of breath or chest pain, no urinary complaints. On 01/31/2017 patient seen in follow-up in the intensive care unit, she is awake and alert, oriented 3, resting in bed, in no acute distress, on room air with pulse ox of 98%, afebrile, hemodynamically patient is stable, blood pressures 108/51, IV D5W with 3 A of bicarb at a rate of 50 ML per hour, no vasoactive drips, no other drips. Today's labs have been reviewed, and showed white blood cell count of 7.4, hemoglobin is 7.1, serum sodium is 121, potassium is 5.1, chloride is 98, CO2 is 15, BUN is 74 and creatinine is 2.21. Urine culture is pending, patient remains on Rocephin for empiric antibiotic coverage for urinary tract infection, nephrology is following, patient was started on Tolvaptan for hyponatremia, neurologically patient is intact, awake and alert, no neurologic deficits, no seizures, no altered mentation. She is tolerating oral intake. She has no specific complaints, no difficulty breathing, no chest pain. No signs of bleeding. Objective - Vital Signs Vital signs: Vital Signs Temp 97.8 F 01/31/19 04:00 Pulse 69 01/31/19 07:00 Resp 15 01/31/19 07:00 BP 108/51 01/31/19 07:00 Pulse Ox 98 01/31/19 07:00 Intake & Output 01/30/19 01/31/19 01/31/19 18:59 06:59 18:59 Intake Total 2825 600 50 Output Total 385 1150 235 Balance 2440 -550 -185 Weight 106.4 kg 107 kg Intake: IV 375 550 50 Sodium Chloride 0.45% 1, 550 50 000 ml @ 50 mls/hr IV . Q23H ONE with Sodium Bicarb (1 Meq/ml) 150 ml Rx#:[id number] Sodium Chloride 0.9% 1, 375 000 ml @ 75 mls/hr IV . [id number] STA Rx#:[id number] Intake, IV Titration 250 50 Amount Dextrose 5% in Water 1, 200 50 000 ml @ 50 mls/hr IV . Q23H DOMINIQUE with Sodium Bicarb (1 Meq/ml) 150 ml Rx#:[id number] cefTRIAXone 1 gm In 50 Sodium Chloride 0.9% 50 ml @ 100 mls/hr IVPB Q24HR DOMINIQUE Rx#:[id number] Oral 980 Blood Product 1220 Rc As-1 Unit 310 [id number] Rc As-1 Unit 310 [id number] Output: Drainage 550 175 Right Lower Abdomen 550 175 Urine 385 600 60 Other: Voiding Method Indwelling Catheter Indwelling Catheter - Exam GENERAL EXAM: Alert, obese, 48-year-old white female, resting in bed on room air, comfortable in no apparent distress. HEAD: Normocephalic/atraumatic. EYES: Normal reaction of pupils, equal size. Conjunctiva pink, sclera white. NOSE: Clear with pink turbinates. THROAT: No erythema or exudates. NECK: No masses, no JVD, no thyroid enlargement, no adenopathy. CHEST: No chest wall deformity. Symmetrical expansion. LUNGS: Equal air entry with no crackles, wheeze, rhonchi or dullness. CVS: Regular rate and rhythm, normal S1 and S2, no gallops, no murmurs, no rubs ABDOMEN: Soft, nontender, distended, but soft. No hepatosplenomegaly, normal bowel sounds, no guarding or rigidity. Paracentesis site in the right lower quadrant is covered with a dressing and patient states there has been some intermittent drainage from the paracentesis site which isn't currently draining right now, there is extensive yeast in the abdominal folds EXTREMITIES: No clubbing, no edema, no cyanosis, 2+ pulses and upper and lower extremities. MUSCULOSKELETAL: Muscle strength and tone normal. SPINE: No scoliosis or deformity SKIN: No rashes CENTRAL NERVOUS SYSTEM: Alert and oriented -3. No focal deficits, tone is normal in all 4 extremities. PSYCHIATRIC: Alert and oriented -3. Appropriate affect. Intact judgment and insight. - Labs CBC & Chem 7: 01/31/19 04:29 01/31/19 04:29 Labs: Abnormal Lab Results - Last 24 Hours (Table) 01/29/19 01/30/19 01/31/19 Range/Units 16:50 17:03 04:29 RBC 2.56 L (3.80-5.40) m/uL Hgb 7.1 L (11.4-16.0) gm/dL Hct 21.4 L (34.0-46.0) % RDW 18.3 H (11.5-15.5) % Plt Count 129 L (150-450) k/uL Lymphocytes # 0.9 L (1.0-4.8) k/uL Sodium 120 L (137-145) mmol/L Potassium 5.4 H (3.5-5.1) mmol/L Carbon Dioxide 14 L (22-30) mmol/L BUN 75 H (7-17) mg/dL Creatinine 2.50 H (0.52-1.04) mg/dL Glucose (74-99) mg/dL Calcium 7.8 L (8.4-10.2) mg/dL Phosphorus (2.5-4.5) mg/dL Magnesium (1.6-2.3) mg/dL Total Bilirubin (0.2-1.3) mg/dL AST (14-36) U/L Total Protein (6.3-8.2) g/dL Albumin (3.5-5.0) g/dL Crossmatch See Detail 01/31/19 Range/Units 04:29 RBC (3.80-5.40) m/uL Hgb (11.4-16.0) gm/dL Hct (34.0-46.0) % RDW (11.5-15.5) % Plt Count (150-450) k/uL Lymphocytes # (1.0-4.8) k/uL Sodium 121 L (137-145) mmol/L Potassium (3.5-5.1) mmol/L Carbon Dioxide 15 L (22-30) mmol/L BUN 74 H (7-17) mg/dL Creatinine 2.21 H (0.52-1.04) mg/dL Glucose 72 L (74-99) mg/dL Calcium 7.9 L (8.4-10.2) mg/dL Phosphorus 5.1 H (2.5-4.5) mg/dL Magnesium 2.6 H (1.6-2.3) mg/dL Total Bilirubin 3.0 H (0.2-1.3) mg/dL AST 82 H (14-36) U/L Total Protein 4.9 L (6.3-8.2) g/dL Albumin 2.4 L (3.5-5.0) g/dL Crossmatch Microbiology - Last 24 Hours (Table) 01/30/19 11:24 Urine Culture - Preliminary Urine,Catheterized Assessment and Plan Plan: Assessment #1. Hypotension following a large volume paracentesis, multifactorial, but la rgely hypovolemic. In part could be do to underlying urinary tract infection, anemia #2. Acute urinary tract infection #3. Acute on chronic anemia, with no obvious signs of bleeding. Requiring tr ansfusion with a total of 4 units of blood #4. Alcoholic liver cirrhosis with chronic ascites, and weekly large-volume paracentesis #5. Hyponatremia #6. Hyperkalemia #7. Anion gap metabolic acidosis, likely related to acute kidney injury #8. Chronic kidney disease #9. Chronic nicotine dependence #10. History of alcohol dependence, currently in remission Plan: We'll continue with IV fluids per nephrology service recommendations, hemodynamically patient is stable, she is awake and alert, oriented 3, no difficulty breathing, no chest pain. His chest x-ray has been reviewed with Dr. Kimball, and did not show any acute findings. The patient is more stable, no obvious signs of bleeding, hemoglobin 7.1. From pulmonary/critical care perspective patient is stable to go out of the intensive care unit today to general medical floor. I performed a history & physical examination of the patient and discussed their management with my nurse practitioner, Ban Al. I reviewed the nurse practitioner's note and agree with the documented findings and plan of care. Lung sounds are positive for clear breath sounds. The findings and the impression was discussed with the patient. I attest to the documentation by the nurse practitioner. Time with Patient: Less than 30
--- NOTE | 2019-01-31 09:17 | XR ---
EXAMINATION TYPE: XR chest 1V portable DATE OF EXAM: 01/31/2019 COMPARISON: Prior chest x-ray 01/29/2019 HISTORY: Shortness of breath TECHNIQUE: Single frontal view of the chest is obtained. FINDINGS: Lung volumes are low. There are overlying cardiac leads. Patient is rotated. There is no fo luzmaria air space opacity, pleural effusion, or pneumothorax seen. The cardiac silhouette size is within normal limits. The osseous structures are intact. IMPRESSION: No acute process.
--- NOTE | 2019-01-31 09:29 | P.PN ---
Subjective Patient is seen in follow-up for acute kidney injury on chronic kidney disease. Patient has chronic kidney disease stage III with baseline creatinine in the range of 1.2-1.5. Patient has history of underlying liver cirrhosis. She undergoes weekly paracentesis. Patient was maintained on Lasix at home. She presented to the hospital due to generalized weakness and lethargy. Hemoglobin was 4.6 on admission and she has received 4 units of blood transfusion so far. Hemoglobin 7.1 today. Sodium level is up to 121. She is maintained on bicarb drip at 50 mL an hour. Denies chest pain or shortness of breath. Urine output has been 40-75 mL an hour. Vital signs are stable. General: The patient appeared well nourished and normally developed. HEENT: Head exam is unremarkable. Neck is without jugular venous distension. LUNGS: Breath sounds decreased. HEART: Rate and Rhythm are regular. First and second heart sounds normal. No murmurs, rubs or gallops. ABDOMEN: Abdominal exam reveals normal bowel sounds. Nontender. EXTREMITITES: Trace edema. Objective - Vital Signs Vital signs: Vital Signs Temp 98.3 F 01/31/19 08:00 Pulse 63 01/31/19 09:00 Resp 16 01/31/19 09:00 BP 106/51 01/31/19 09:00 Pulse Ox 99 01/31/19 09:00 Intake & Output 01/30/19 01/31/19 01/31/19 18:59 06:59 18:59 Intake Total 2825 600 150 Output Total 385 1150 595 Balance 1724 -222 -627 Weight 106.4 kg 107 kg Intake: IV 375 550 150 Sodium Chloride 0.45% 1, 550 150 000 ml @ 50 mls/hr IV . Q23H ONE with Sodium Bicarb (1 Meq/ml) 150 ml Rx#:[id number] Sodium Chloride 0.9% 1, 375 000 ml @ 75 mls/hr IV . [id number] STA Rx#:[id number] Intake, IV Titration 250 50 Amount Dextrose 5% in Water 1, 200 50 000 ml @ 50 mls/hr IV . Q23H DOMINIQUE with Sodium Bicarb (1 Meq/ml) 150 ml Rx#:[id number] cefTRIAXone 1 gm In 50 Sodium Chloride 0.9% 50 ml @ 100 mls/hr IVPB Q24HR DOMINIQUE Rx#:[id number] Oral 980 Blood Product 1220 Rc As-1 Unit 310 [id number] Rc As-1 Unit 310 [id number] Output: Drainage 550 360 Right Lower Abdomen 550 360 Urine 385 600 235 Other: Voiding Method Indwelling Catheter Indwelling Catheter - Labs CBC & Chem 7: 01/31/19 04:29 01/31/19 04:29 Labs: Abnormal Lab Results - Last 24 Hours (Table) 01/29/19 01/30/19 01/31/19 Range/Units 16:50 17:03 04:29 RBC 2.56 L (3.80-5.40) m/uL Hgb 7.1 L (11.4-16.0) gm/dL Hct 21.4 L (34.0-46.0) % RDW 18.3 H (11.5-15.5) % Plt Count 129 L (150-450) k/uL Lymphocytes # 0.9 L (1.0-4.8) k/uL Sodium 120 L (137-145) mmol/L Potassium 5.4 H (3.5-5.1) mmol/L Carbon Dioxide 14 L (22-30) mmol/L BUN 75 H (7-17) mg/dL Creatinine 2.50 H (0.52-1.04) mg/dL Glucose (74-99) mg/dL Calcium 7.8 L (8.4-10.2) mg/dL Phosphorus (2.5-4.5) mg/dL Magnesium (1.6-2.3) mg/dL Total Bilirubin (0.2-1.3) mg/dL AST (14-36) U/L Total Protein (6.3-8.2) g/dL Albumin (3.5-5.0) g/dL Crossmatch See Detail 01/31/19 Range/Units 04:29 RBC (3.80-5.40) m/uL Hgb (11.4-16.0) gm/dL Hct (34.0-46.0) % RDW (11.5-15.5) % Plt Count (150-450) k/uL Lymphocytes # (1.0-4.8) k/uL Sodium 121 L (137-145) mmol/L Potassium (3.5-5.1) mmol/L Carbon Dioxide 15 L (22-30) mmol/L BUN 74 H (7-17) mg/dL Creatinine 2.21 H (0.52-1.04) mg/dL Glucose 72 L (74-99) mg/dL Calcium 7.9 L (8.4-10.2) mg/dL Phosphorus 5.1 H (2.5-4.5) mg/dL Magnesium 2.6 H (1.6-2.3) mg/dL Total Bilirubin 3.0 H (0.2-1.3) mg/dL AST 82 H (14-36) U/L Total Protein 4.9 L (6.3-8.2) g/dL Albumin 2.4 L (3.5-5.0) g/dL Crossmatch Microbiology - Last 24 Hours (Table) 01/30/19 11:24 Urine Culture - Preliminary Urine,Catheterized Assessment and Plan Plan: Assessment: 1. Acute kidney injury mostly prerenal secondary to acute anemia and diuresis improving with IV hydration. Creatinine was 2.93 on admission and is 2.1 today. 2. Chronic kidney disease stage III with baseline creatinine in the range of 1.2-1.5. Etiology is hepatorenal syndrome. 3. Acute blood loss anemia status post 4 units of blood trans-fusion. He woke up at 7.1 this morning. She did have epistaxis this morning but now resolved. 4. Metabolic acidosis secondary to acute kidney injury. 5. Hyperkalemia secondary to acute kidney injury and metabolic acidosis. Better. 6. History of liver cirrhosis. 7. Hyponatremia. Patient doesn't appear volume overloaded at this time. 8. Ascites. Patient undergoes weekly paracentesis. Last paracentesis on January 29 with 5 L drained. 9. Chronic hypotension related to underlying liver cirrhosis maintained on midodrine. Plan: Increase bicarb drip to 75 mL an hour. 25 g of albumin IV 2 doses today. 1200 mL fluid restriction. Add ensure 3 times daily with meals. IV DDAVP 1 dose today. Add Aranesp. Repeat sodium level this evening. Hold off on diuretics. Follow-up cultures.
[2019-01-31] MEDS ORDERED: DARBEPOETIN ALFA 40 MCG/0.4 ML SYRINGE SQ SCH (09:30)
[2019-01-31] MEDS ORDERED: DEXTROSE 5% IN WATER 1,000 ML with SODIUM BICARB (1 MEQ/ML) 150 ML IV ONE (09:37)
[2019-01-31] MEDS ORDERED: DESMOPRESSIN ACETATE 32 MCG in SODIUM CHLORIDE 0.9% 50 ML IVPB ONE (09:45)
--- NOTE | 2019-01-31 10:10 | P.PN ---
Subjective Progress Note Date: 01/31/19 Principal diagnosis: Cirrhosis No complaint. Afebrile. Hemoglobin 7.1. White count 7.4. BUN 74. Creatinine 2.2. LFTs improved total bilirubin 3.0. AST 82. ALT 33. AP 97. Objective - Vital Signs Vital signs: Vital Signs Temp 98.3 F 01/31/19 08:00 Pulse 63 01/31/19 09:00 Resp 16 01/31/19 09:00 BP 106/51 01/31/19 09:00 Pulse Ox 99 01/31/19 09:00 Intake & Output 01/30/19 01/31/19 01/31/19 18:59 06:59 18:59 Intake Total 2825 600 150 Output Total 385 1150 655 Balance 5141 -289 -903 Weight 106.4 kg 107 kg Intake: IV 375 550 150 Sodium Chloride 0.45% 1, 550 150 000 ml @ 50 mls/hr IV . Q23H ONE with Sodium Bicarb (1 Meq/ml) 150 ml Rx#:[id number] Sodium Chloride 0.9% 1, 375 000 ml @ 75 mls/hr IV . [id number] STA Rx#:[id number] Intake, IV Titration 250 50 Amount Dextrose 5% in Water 1, 200 50 000 ml @ 50 mls/hr IV . Q23H DOMINIQUE with Sodium Bicarb (1 Meq/ml) 150 ml Rx#:[id number] cefTRIAXone 1 gm In 50 Sodium Chloride 0.9% 50 ml @ 100 mls/hr IVPB Q24HR DOMINIQUE Rx#:[id number] Oral 980 Blood Product 1220 Rc As-1 Unit 310 [id number] Rc As-1 Unit 310 [id number] Output: Drainage 550 420 Right Lower Abdomen 550 420 Urine 385 600 235 Other: Voiding Method Indwelling Catheter Indwelling Catheter Indwelling Catheter - Exam General appearance: The patient is alert, oriented, in no acute distress. Ca chectic appearance appears weak. HET: Head is normocephalic and atraumatic. Pupils are equal and reactive. Oropharynx is clear without lesions. Scattered facial telangiectasias. Neck: Supple without lymphadenopathy. Trachea midline. Heart: S1 S2. Regular rate and rhythm. Lungs: No crackles or wheezes are heard. Abdomen: Paracentesis site leaking ascitic fluid. Soft, nontender, mildly distended no appreciable ascites with bowel sounds. No peritoneal signs. No palpable organomegaly or masses. Extremities: +2 bilaterally lower extremity edema and no asterixis. Neurological: No focal deficits. Strength and sensation are grossly intact. - Labs CBC & Chem 7: 01/31/19 04:29 01/31/19 04:29 Labs: Abnormal Lab Results - Last 24 Hours (Table) 01/29/19 01/30/19 01/31/19 Range/Units 16:50 17:03 04:29 RBC 2.56 L (3.80-5.40) m/uL Hgb 7.1 L (11.4-16.0) gm/dL Hct 21.4 L (34.0-46.0) % RDW 18.3 H (11.5-15.5) % Plt Count 129 L (150-450) k/uL Lymphocytes # 0.9 L (1.0-4.8) k/uL Sodium 120 L (137-145) mmol/L Potassium 5.4 H (3.5-5.1) mmol/L Carbon Dioxide 14 L (22-30) mmol/L BUN 75 H (7-17) mg/dL Creatinine 2.50 H (0.52-1.04) mg/dL Glucose (74-99) mg/dL Calcium 7.8 L (8.4-10.2) mg/dL Phosphorus (2.5-4.5) mg/dL Magnesium (1.6-2.3) mg/dL Total Bilirubin (0.2-1.3) mg/dL AST (14-36) U/L Total Protein (6.3-8.2) g/dL Albumin (3.5-5.0) g/dL Crossmatch See Detail 01/31/19 Range/Units 04:29 RBC (3.80-5.40) m/uL Hgb (11.4-16.0) gm/dL Hct (34.0-46.0) % RDW (11.5-15.5) % Plt Count (150-450) k/uL Lymphocytes # (1.0-4.8) k/uL Sodium 121 L (137-145) mmol/L Potassium (3.5-5.1) mmol/L Carbon Dioxide 15 L (22-30) mmol/L BUN 74 H (7-17) mg/dL Creatinine 2.21 H (0.52-1.04) mg/dL Glucose 72 L (74-99) mg/dL Calcium 7.9 L (8.4-10.2) mg/dL Phosphorus 5.1 H (2.5-4.5) mg/dL Magnesium 2.6 H (1.6-2.3) mg/dL Total Bilirubin 3.0 H (0.2-1.3) mg/dL AST 82 H (14-36) U/L Total Protein 4.9 L (6.3-8.2) g/dL Albumin 2.4 L (3.5-5.0) g/dL Crossmatch Microbiology - Last 24 Hours (Table) 01/30/19 11:24 Urine Culture - Preliminary Urine,Catheterized Assessment and Plan (1) Cirrhosis of liver with ascites Current Visit: Yes Status: Acute Code(s): K74.60 - UNSPECIFIED CIRRHOSIS OF LIVER; R18.8 - OTHER ASCITES SNOMED Code(s): 11665122 (2) Hypotension Current Visit: Yes Status: Acute Code(s): I95.9 - HYPOTENSION, UNSPECIFIED SNOMED Code(s): 79416908 (3) Chronic anemia Narrative/Plan: Acute on chronic no active GI bleeding Current Visit: Yes Status: Acute Code(s): D64.9 - ANEMIA, UNSPECIFIED SNOMED Code(s): 338809511 (4) History of ETOH abuse Current Visit: Yes Status: Acute Code(s): F10.11 - ALCOHOL ABUSE, IN REMISSION SNOMED Code(s): 147665265 (5) Hyponatremia Current Visit: Yes Status: Acute Code(s): E87.1 - HYPO-OSMOLALITY AND HYPONATREMIA SNOMED Code(s): 02183885 (6) Coagulopathy Current Visit: Yes Status: Acute Code(s): D68.9 - COAGULATION DEFECT, UNSPECIFIED SNOMED Code(s): 29279735 (7) History of Willie-en-Y gastric bypass Current Visit: No Status: Resolved Code(s): Z98.84 - BARIATRIC SURGERY STATUS SNOMED Code(s): 906996585 (8) Portal hypertension Current Visit: Yes Status: Acute Code(s): K76.6 - PORTAL HYPERTENSION SNOMED Code(s): 91312475 (9) History of esophageal varices Current Visit: Yes Status: Acute Code(s): Z87.19 - PERSONAL HISTORY OF OTHER DISEASES OF THE DIGESTIVE SYSTEM SNOMED Code(s): 73570609988808031 (10) UTI (urinary tract infection) Current Visit: Yes Status: Acute Code(s): N39.0 - URINARY TRACT INFECTION, SITE NOT SPECIFIED SNOMED Code(s): 69974283 Plan: 1. Symptomatic supportive measures. Blood transfusion as needed. CBC monitoring. Protonix 40 mg daily. Rocephin 1 g daily. Inpatient endoscopic exams not planned at this time unless patient manifests active GI bleeding. Neph rology following closely. IV albumin given. Assessment and plan a care discussed with Dr. Carmona
[2019-01-31] MEDS: ALBUMIN HUMAN 25% 50 ML in EMPTY BAG 1 BAG IVPB SCH ×4 (10:41→17:19)
[2019-01-31] MEDS: LACTULOSE 20 GM/30 ML CUP PO SCH ×2 (10:57→19:57)
--- NOTE | 2019-01-31 11:07 | P.PN ---
Subjective Progress Note Date: 01/31/19 Principal diagnosis: anemia HPI: This is a 48-like female who presented to the emergency room after she had a 5 L ascitic fluid removal for paracenteses performed 01/29/2019. She states that she has been feeling lethargic and weak even prior to the procedure. Post procedure she was hypotensive and was given albumin. Since her symptoms did not improve she was admitted through the emergency room to the intensive care unit. At the time of examination patient feels better, her lethargy has improved. She denies chest pain, no abdominal pain, no nausea no vomiting, she denies dysuria hematuria hematemesis or hematochezia. She denies shortness of breath, no diarrhea, no loss of consciousness. Patient gets weekly paracenteses. 01/31/2019: She feels much better today, blood pressure has improved, no chest pain no abdominal pain, no dizziness no loss of consciousness, no gross bleeding. Objective - Vital Signs Vital signs: Vital Signs Temp 98.3 F 01/31/19 08:00 Pulse 66 01/31/19 10:30 Resp 12 01/31/19 10:30 BP 102/51 01/31/19 10:30 Pulse Ox 98 01/31/19 10:30 Intake & Output 01/30/19 01/31/19 01/31/19 18:59 06:59 18:59 Intake Total 2825 600 150 Output Total 385 1150 655 Balance 3749 -703 -193 Weight 106.4 kg 107 kg Intake: IV 375 550 150 Sodium Chloride 0.45% 1, 550 150 000 ml @ 50 mls/hr IV . Q23H ONE with Sodium Bicarb (1 Meq/ml) 150 ml Rx#:[id number] Sodium Chloride 0.9% 1, 375 000 ml @ 75 mls/hr IV . [id number] STA Rx#:[id number] Intake, IV Titration 250 50 Amount Dextrose 5% in Water 1, 200 50 000 ml @ 50 mls/hr IV . Q23H [facility] with Sodium Bicarb (1 Meq/ml) 150 ml Rx#:[id number] cefTRIAXone 1 gm In 50 Sodium Chloride 0.9% 50 ml @ 100 mls/hr IVPB Q24HR [facility] Rx#:[id number] Oral 980 Blood Product 1220 Rc As-1 Unit 310 [id number] As-1 Unit 310 [id number] Output: Drainage 550 420 Right Lower Abdomen 550 420 Urine 385 600 235 Other: Voiding Method Indwelling Catheter Indwelling Catheter Indwelling Catheter - Exam Constitutional: No acute distress, conversant, pleasant Eyes: PERRLA ENMT: NC/AT Neck:Supple, or JVD, No carotid bruits Lungs: Clear to auscultation, Clear to percussion, Normal respiratory effort Cardiovascular: Heart regular in rate and rhythm, No murmurs, gallops, or rubs no peripheral edema Abdominal: Soft Nontender, non distended, no guarding, no rebound Skin: Normal temperature, tone, texture Extremities:No digital cyanosis No clubbing, 1+ lower extremity edema bilateral Psychiatric: Alert and oriented to person, place and time Neuro: Muscles Strength 5/5 in all 4 extremities,Cranial nerves II-XII grossly intact. No focal sensory deficits - Labs CBC & Chem 7: 01/31/19 04:29 01/31/19 04:29 Labs: Abnormal Lab Results - Last 24 Hours (Table) 01/29/19 01/30/19 01/31/19 Range/Units 16:50 17:03 04:29 RBC 2.56 L (3.80-5.40) m/uL Hgb 7.1 L (11.4-16.0) gm/dL Hct 21.4 L (34.0-46.0) % RDW 18.3 H (11.5-15.5) % Plt Count 129 L (150-450) k/uL Lymphocytes # 0.9 L (1.0-4.8) k/uL Sodium 120 L (137-145) mmol/L Potassium 5.4 H (3.5-5.1) mmol/L Carbon Dioxide 14 L (22-30) mmol/L BUN 75 H (7-17) mg/dL Creatinine 2.50 H (0.52-1.04) mg/dL Glucose (74-99) mg/dL Calcium 7.8 L (8.4-10.2) mg/dL Phosphorus (2.5-4.5) mg/dL Magnesium (1.6-2.3) mg/dL Total Bilirubin (0.2-1.3) mg/dL AST (14-36) U/L Total Protein (6.3-8.2) g/dL Albumin (3.5-5.0) g/dL Crossmatch See Detail 01/31/19 Range/Units 04:29 RBC (3.80-5.40) m/uL Hgb (11.4-16.0) gm/dL Hct (34.0-46.0) % RDW (11.5-15.5) % Plt Count (150-450) k/uL Lymphocytes # (1.0-4.8) k/uL Sodium 121 L (137-145) mmol/L Potassium (3.5-5.1) mmol/L Carbon Dioxide 15 L (22-30) mmol/L BUN 74 H (7-17) mg/dL Creatinine 2.21 H (0.52-1.04) mg/dL Glucose 72 L (74-99) mg/dL Calcium 7.9 L (8.4-10.2) mg/dL Phosphorus 5.1 H (2.5-4.5) mg/dL Magnesium 2.6 H (1.6-2.3) mg/dL Total Bilirubin 3.0 H (0.2-1.3) mg/dL AST 82 H (14-36) U/L Total Protein 4.9 L (6.3-8.2) g/dL Albumin 2.4 L (3.5-5.0) g/dL Crossmatch Microbiology - Last 24 Hours (Table) 01/30/19 11:24 Urine Culture - Preliminary Urine,Catheterized Assessment and Plan Plan: 1. Hypotension status post paracenteses 5 L, hypovolemia and acute UTI: Continu e IV fluid resuscitation and monitor, hypotension resolved. 2. Acute UTI unspecified organism or location: Continue IV Rocephin, pending blood and urine cultures 3. Acute on chronic anemia likely secondary to liver disease: She has received 2 units of packed RBCs 01/29/2019 and 2 more units 01/30/2019, hemoglobin improved from 4.6 to 7.1, GI following no scope for now. 4. Chronic thrombocytopenia secondary to liver disease: Continue to monitor, platelets stable at 129-130 5. Obesity BMI 35.7 6. Hyponatremia: hypovolemic and secondary to liver disease: Continue IV fluids with bicarbonate-containing solution, nephrology following, patient received albumin and IV DDAVP and is on fluid restriction 7. Hyperkalemia secondary to acute kidney injury, continue bicarbonate- containing solution, resolved. 8. Metabolic acidosis, bicarbonate 14 secondary to acute kidney injury, continue bicarbonate-containing solution and monitor, serum bicarbonate slightly up to 15. 9. Acute kidney injury/chronic kidney disease stage III secondary to hepatorenal: Creatinine 2.6 secondary to hypovolemia: Continue IV fluid resuscitation, avoid nephrotoxins. Serum creatinine improved to 2.1, nephrology following. 10. Alcoholic liver cirrhosis: Requiring weekly paracenteses. 11. Alcohol use without evidence of withdrawal: Conservative treatment 12. Diabetes type 2 with peripheral neuropathy: Continue outpatient gabapentin 13. Tobacco use without evidence of withdrawal, nicotine patch as indicated. 14. DVT prophylaxis: SCDs disposition: Transfer to medical floor
[2019-01-31 18:41] LABS: Calcium 7.9 mg/dL (8.4-10.2); Potassium 4.9 mmol/L (3.5-5.1)
[2019-02-01 07:08] LABS: Anisocytosis Slight; Basophils % (A) 0 %; Eosinophils # (A) 0.1 k/uL (0-0.7); Eosinophils % (A) 2 %; Lymphocytes # (A) 0.9 k/uL (1.0-4.8); Lymphocytes % (A) 17 %; MCHC 32.9 g/dL (31.0-37.0); Mean Platelet Volume 7.5; Monocytes # (A) 0.5 k/uL (0-1.0); Monocytes % (A) 9 %; Neutrophils # (A) 3.5 k/uL (1.3-7.7); Neutrophils % (A) 70 %; Platelet Count 125 k/uL (150-450); RBC 2.29 m/uL (3.80-5.40); RDW 18.1 % (11.5-15.5); WBC 5.1 k/uL (3.8-10.6)
[2019-02-01 07:17] LABS: HCT 19.4 % (34.0-46.0)
[2019-02-01 07:18] LABS: HGB 6.4 gm/dL (11.4-16.0)
[2019-02-01 07:29] LABS: Albumin 2.6 g/dL (3.5-5.0); Calcium 8.1 mg/dL (8.4-10.2); Potassium 4.6 mmol/L (3.5-5.1); Total Bilirubin 2.4 mg/dL (0.2-1.3)
[2019-02-01] MEDS: PANTOPRAZOLE 40 MG TABLET PO SCH (08:02)
[2019-02-01] MEDS: LACTULOSE 20 GM/30 ML CUP PO SCH ×2 (08:02→21:08)
--- NOTE | 2019-02-01 08:04 | P.PN ---
Subjective Progress Note Date: 02/01/19 Principal diagnosis: anemia HPI: This is a 48-like female who presented to the emergency room after she had a 5 L ascitic fluid removal for paracenteses performed 01/29/2019. She states that she has been feeling lethargic and weak even prior to the procedure. Post procedure she was hypotensive and was given albumin. Since her symptoms did not improve she was admitted through the emergency room to the intensive care unit. At the time of examination patient feels better, her lethargy has improved. She denies chest pain, no abdominal pain, no nausea no vomiting, she denies dysuria hematuria hematemesis or hematochezia. She denies shortness of breath, no diarrhea, no loss of consciousness. Patient gets weekly paracenteses. 01/31/2019: She feels much better today, blood pressure has improved, no chest pain no abdominal pain, no dizziness no loss of consciousness, no gross bleeding. 02/01/2019: She feels okay today. She had a few episodes of epistaxis overnight but this has resolved. Blood pressure remained acceptable. She denies nausea vomiting abdominal pain or chest pain. She denies gross bleeding other than epistaxis. Objective - Vital Signs Vital signs: Vital Signs Temp 98.0 F 02/01/19 05:27 Pulse 76 02/01/19 05:27 Resp 16 02/01/19 05:27 BP 101/57 02/01/19 05:27 Pulse Ox 99 02/01/19 05:27 Intake & Output 01/31/19 02/01/19 02/01/19 18:59 06:59 18:59 Intake Total 1000 590 Output Total 1240 2475 Balance -240 -1635 Intake: IV 1000 Albumin Human 25% 50 ml 150 In Empty Bag 1 bag @ 50 mls/hr IVPB Q1H [facility] Rx#: [id number] Desmopressin Acetate 32 50 mcg In Sodium Chloride 0. 9% 50 ml @ 200 mls/hr IVPB ONCE ONE Rx#: [id number] Dextrose 5% in Water 1, 550 000 ml @ 75 mls/hr IV . [id number] ONE with Sodium Bicarb (1 Meq/ml) 150 ml Rx#:[id number] Sodium Chloride 0.45% 1, 200 000 ml @ 50 mls/hr IV . Q23H ONE with Sodium Bicarb (1 Meq/ml) 150 ml Rx#:[id number] cefTRIAXone 1 gm In 50 Sodium Chloride 0.9% 50 ml @ 100 mls/hr IVPB Q24HR [facility] Rx#:[id number] Oral 590 Output: Drainage 665 1075 Right Lower Abdomen 665 1075 Urine 575 1150 Other: Voiding Method Indwelling Catheter Indwelling Catheter - Exam Constitutional: No acute distress, conversant, pleasant Eyes: PERRLA ENMT: NC/AT Neck:Supple no JVD, No carotid bruits Lungs: Clear to auscultation, no crackles no rhonchi no wheezing Cardiovascular: Heart regular in rate and rhythm, No murmurs, gallops, or rubs no peripheral edema Abdominal: Soft Nontender, non distended, no guarding, no rebound Skin: Normal temperature, tone, texture Extremities:No digital cyanosis No clubbing, trace+ lower extremity edema bilateral Psychiatric: Alert and oriented to person, place and time Neuro: Muscles Strength 5/5 in all 4 extremities,Cranial nerves II-XII grossly intact. No focal sensory deficits - Labs CBC & Chem 7: 02/01/19 06:49 02/01/19 06:49 Labs: Abnormal Lab Results - Last 24 Hours (Table) 01/29/19 01/31/19 02/01/19 Range/Units 16:50 18:17 06:49 RBC 2.29 L (3.80-5.40) m/uL Hgb 6.4 L* (11.4-16.0) gm/dL Hct 19.4 L* (34.0-46.0) % RDW 18.1 H (11.5-15.5) % Plt Count 125 L (150-450) k/uL Lymphocytes # 0.9 L (1.0-4.8) k/uL Sodium 123 L (137-145) mmol/L Carbon Dioxide 17 L (22-30) mmol/L BUN 72 H (7-17) mg/dL Creatinine 2.00 H (0.52-1.04) mg/dL Calcium 7.9 L (8.4-10.2) mg/dL Total Bilirubin (0.2-1.3) mg/dL AST (14-36) U/L Total Protein (6.3-8.2) g/dL Albumin (3.5-5.0) g/dL Crossmatch See Detail 02/01/19 Range/Units 06:49 RBC (3.80-5.40) m/uL Hgb (11.4-16.0) gm/dL Hct (34.0-46.0) % RDW (11.5-15.5) % Plt Count (150-450) k/uL Lymphocytes # (1.0-4.8) k/uL Sodium 126 L (137-145) mmol/L Carbon Dioxide 19 L (22-30) mmol/L BUN 68 H (7-17) mg/dL Creatinine 1.72 H (0.52-1.04) mg/dL Calcium 8.1 L (8.4-10.2) mg/dL Total Bilirubin 2.4 H (0.2-1.3) mg/dL AST 66 H (14-36) U/L Total Protein 5.0 L (6.3-8.2) g/dL Albumin 2.6 L (3.5-5.0) g/dL Crossmatch Microbiology - Last 24 Hours (Table) 01/30/19 11:24 Urine Culture - Preliminary Urine,Catheterized Gram Neg Bacilli Assessment and Plan Plan: 1. Hypotension status post paracenteses 5 L, hypovolemia and acute UTI: was on IV fluid resuscitation but it was stopped. hypotension resolved. on midodrine 2. Acute UTI unspecified location, gram-negative bacilli: Continue IV Rocephin, pending final blood and urine cultures 3. Acute on chronic anemia likely secondary to liver disease: She has received 2 units of packed RBCs 01/29/2019 and 2 more units 01/30/2019, hemoglobin improved from 4.6 to 7.1, now back down to 6.4 GI following no scope for now. We will transfuse 2 units of blood today. 4. Chronic thrombocytopenia secondary to liver disease: Continue to monitor, platelets stable at 125-130 5. Obesity BMI 35.7 6. Hyponatremia: hypovolemic and secondary to liver disease: She was on bicar bonate-containing solution, nephrology following, patient received albumin and IV DDAVP and is on fluid restriction, now off IV fluids, serum sodium improved from 120 up to 126 7. Hyperkalemia secondary to acute kidney injury, continue bicarbonate- containing solution, resolved. 8. Metabolic acidosis, bicarbonate 14 secondary to acute kidney injury, continue bicarbonate-containing solution and monitor, serum bicarbonate up to 17. 9. Acute kidney injury/chronic kidney disease stage III secondary to hepatorenal: Creatinine 2.6 secondary to hypovolemia Received IV fluid resuscitation, avoid nephrotoxins. Serum creatinine improved to 1.7 , nephrology following. 10. Alcoholic liver cirrhosis: Requiring weekly paracenteses. 11. Alcohol use without evidence of withdrawal: Conservative treatment 12. Diabetes type 2 with peripheral neuropathy: Continue outpatient gabapentin 13. Tobacco use without evidence of withdrawal, nicotine patch as indicated. 14. DVT prophylaxis: SCDs 15. Intermittent epistaxis: Resolved, monitor for now. 16. Weakness, consulted PT/OT disposition: She will likely need rehab, patient is agreeable if indicated. Time with Patient: Less than 30
[2019-02-01] MEDS: MIDODRINE 5 MG TAB PO SCH ×3 (08:59→17:15)
--- NOTE | 2019-02-01 09:03 | P.PN ---
Subjective Progress Note Date: 02/01/19 Principal diagnosis: Cirrhosis No complaints. Afebrile. Hemoglobin 6.4 no active GI bleed. Nosebleeds through the night. Platelet 125. White count 5.1. Kidney function improving. BUN 68. Creatinine 1.7. LFTs improved total bilirubin 2.4. AST 66. ALT 30. AP 83. Blood transfusion ordered. Objective - Vital Signs Vital signs: Vital Signs Temp 98.0 F 02/01/19 05:27 Pulse 76 02/01/19 05:27 Resp 16 02/01/19 05:27 BP 101/57 02/01/19 05:27 Pulse Ox 95 02/01/19 08:54 Intake & Output 01/31/19 02/01/19 02/01/19 18:59 06:59 18:59 Intake Total 1000 590 Output Total 1240 2225 Balance -240 -1635 Intake: IV 1000 Albumin Human 25% 50 ml 150 In Empty Bag 1 bag @ 50 mls/hr IVPB Q1H [facility] Rx#: [id number] Desmopressin Acetate 32 50 mcg In Sodium Chloride 0. 9% 50 ml @ 200 mls/hr IVPB ONCE ONE Rx#: [id number] Dextrose 5% in Water 1, 550 000 ml @ 75 mls/hr IV . [id number] ONE with Sodium Bicarb (1 Meq/ml) 150 ml Rx#:[id number] Sodium Chloride 0.45% 1, 200 000 ml @ 50 mls/hr IV . Q23H ONE with Sodium Bicarb (1 Meq/ml) 150 ml Rx#:[id number] cefTRIAXone 1 gm In 50 Sodium Chloride 0.9% 50 ml @ 100 mls/hr IVPB Q24HR [facility] Rx#:[id number] Oral 590 Output: Drainage 665 1075 Right Lower Abdomen 665 1075 Urine 575 1150 Other: Voiding Method Indwelling Catheter Indwelling Catheter - Exam General appearance: The patient is alert, oriented, in no acute distress. Cachectic appearance appears weak. HET: Head is normocephalic and atraumatic. Pupils are equal and reactive. Oropharynx is clear without lesions. Scattered facial telangiectasias. Neck: Supple without lymphadenopathy. Trachea midline. Heart: S1 S2. Regular rate and rhythm. Lungs: No crackles or wheezes are heard. Abdomen: Paracentesis site leaking ascitic fluid with collection bag in place. Soft, nontender, mildly distended no appreciable gross ascites. Bowel sounds present. No peritoneal signs. No palpable organomegaly or masses. Extremities: No asterisks. Poor skin turgor. Neurological: No focal deficits. Strength and sensation are grossly intact. - Labs CBC & Chem 7: 02/01/19 06:49 02/01/19 06:49 Labs: Abnormal Lab Results - Last 24 Hours (Table) 01/29/19 01/31/19 02/01/19 Range/Units 16:50 18:17 06:49 RBC 2.29 L (3.80-5.40) m/uL Hgb 6.4 L* (11.4-16.0) gm/dL Hct 19.4 L* (34.0-46.0) % RDW 18.1 H (11.5-15.5) % Plt Count 125 L (150-450) k/uL Lymphocytes # 0.9 L (1.0-4.8) k/uL Sodium 123 L (137-145) mmol/L Carbon Dioxide 17 L (22-30) mmol/L BUN 72 H (7-17) mg/dL Creatinine 2.00 H (0.52-1.04) mg/dL Calcium 7.9 L (8.4-10.2) mg/dL Total Bilirubin (0.2-1.3) mg/dL AST (14-36) U/L Total Protein (6.3-8.2) g/dL Albumin (3.5-5.0) g/dL Crossmatch See Detail 02/01/19 Range/Units 06:49 RBC (3.80-5.40) m/uL Hgb (11.4-16.0) gm/dL Hct (34.0-46.0) % RDW (11.5-15.5) % Plt Count (150-450) k/uL Lymphocytes # (1.0-4.8) k/uL Sodium 126 L (137-145) mmol/L Carbon Dioxide 19 L (22-30) mmol/L BUN 68 H (7-17) mg/dL Creatinine 1.72 H (0.52-1.04) mg/dL Calcium 8.1 L (8.4-10.2) mg/dL Total Bilirubin 2.4 H (0.2-1.3) mg/dL AST 66 H (14-36) U/L Total Protein 5.0 L (6.3-8.2) g/dL Albumin 2.6 L (3.5-5.0) g/dL Crossmatch Microbiology - Last 24 Hours (Table) 01/30/19 11:24 Urine Culture - Preliminary Urine,Catheterized Gram Neg Bacilli Assessment and Plan (1) Cirrhosis of liver with ascites Current Visit: Yes Status: Acute Code(s): K74.60 - UNSPECIFIED CIRRHOSIS OF LIVER; R18.8 - OTHER ASCITES SNOMED Code(s): 68609577 (2) Hypotension Current Visit: Yes Status: Acute Code(s): I95.9 - HYPOTENSION, UNSPECIFIED SNOMED Code(s): 50106838 (3) Chronic anemia Narrative/Plan: Acute on chronic no active GI bleeding Current Visit: Yes Status: Acute Code(s): D64.9 - ANEMIA, UNSPECIFIED SNOMED Code(s): 814298381 (4) History of ETOH abuse Current Visit: Yes Status: Acute Code(s): F10.11 - ALCOHOL ABUSE, IN REMISSION SNOMED Code(s): 977353808 (5) Hyponatremia Current Visit: Yes Status: Acute Code(s): E87.1 - HYPO-OSMOLALITY AND HYPONATREMIA SNOMED Code(s): 30673362 (6) Coagulopathy Current Visit: Yes Status: Acute Code(s): D68.9 - COAGULATION DEFECT, UN SPECIFIED SNOMED Code(s): 96807558 (7) History of Willie-en-Y gastric bypass Current Visit: No Status: Resolved Code(s): Z98.84 - BARIATRIC SURGERY STATUS SNOMED Code(s): 195353702 (8) Portal hypertension Current Visit: Yes Status: Acute Code(s): K76.6 - PORTAL HYPERTENSION SNOMED Code(s): 67789977 (9) History of esophageal varices Current Visit: Yes Status: Acute Code(s): Z87.19 - PERSONAL HISTORY OF OTHER DISEASES OF THE DIGESTIVE SYSTEM SNOMED Code(s): 81065768443760834 (10) UTI (urinary tract infection) Current Visit: Yes Status: Acute Code(s): N39.0 - URINARY TRACT INFECTION, SITE NOT SPECIFIED SNOMED Code(s): 32098128 (11) Epistaxis Current Visit: Yes Status: Acute Code(s): R04.0 - EPISTAXIS SNOMED Code(s): 370951404 Plan: 1. Continue with present medical therapy. Medicine has ordered blood transfusion. Daily monitoring of CBC and electrolytes. Will add PT/INR in a.m. Assessment and plan a care discussed with Dr. Carmona
[2019-02-01] MEDS ORDERED: DEXTROSE 5% IN WATER 1,000 ML with SODIUM BICARB (1 MEQ/ML) 150 ML IV ONE (12:42)
[2019-02-01] MEDS ORDERED: SODIUM CHLORIDE 0.9% IVPB ONE (12:46)
[2019-02-01] MEDS ORDERED: DESMOPRESSIN ACETATE IVPB ONE (12:46)
--- NOTE | 2019-02-01 12:48 | P.PN ---
Subjective Patient is seen in follow-up for acute kidney injury on chronic kidney disease. Patient has chronic kidney disease stage III with baseline creatinine in the range of 1.2-1.5. Patient has history of underlying liver cirrhosis. She undergoes weekly paracentesis. Patient was maintained on Lasix at home. She presented to the hospital due to generalized weakness and lethargy. Hemoglobin was 4.6 on admission and she has received 4 units of blood transfusion so far. Hemoglobin 6.4 today. She is having epistaxis. Sodium level is up to 126. She is maintained on bicarb drip at 75 mL an hour. Denies chest pain or shortness of breath. Urine output 3.5 L over the last 24 hours. Patient is somewhat confused. Vital signs are stable. General: The patient appeared well nourished and normally developed. HEENT: Head exam is unremarkable. Neck is without jugular venous distension. LUNGS: Breath sounds decreased. HEART: Rate and Rhythm are regular. First and second heart sounds normal. No murmurs, rubs or gallops. ABDOMEN: Abdominal exam reveals normal bowel sounds. Nontender. EXTREMITITES: Trace edema. Objective - Vital Signs Vital signs: Vital Signs Temp 98.2 F 02/01/19 11:56 Pulse 71 02/01/19 11:56 Resp 17 02/01/19 11:56 BP 108/59 02/01/19 11:56 Pulse Ox 100 02/01/19 11:56 Intake & Output 01/31/19 02/01/19 02/01/19 18:59 06:59 18:59 Intake Total 1000 590 0 Output Total 1240 2225 Balance -240 -1635 0 Intake: IV 1000 Albumin Human 25% 50 ml 150 In Empty Bag 1 bag @ 50 mls/hr IVPB Q1H [facility] Rx#: [id number] Desmopressin Acetate 32 50 mcg In Sodium Chloride 0. 9% 50 ml @ 200 mls/hr IVPB ONCE ONE Rx#: [id number] Dextrose 5% in Water 1, 550 000 ml @ 75 mls/hr IV . [id number] ONE with Sodium Bicarb (1 Meq/ml) 150 ml Rx#:[id number] Sodium Chloride 0.45% 1, 200 000 ml @ 50 mls/hr IV . Q23H ONE with Sodium Bicarb (1 Meq/ml) 150 ml Rx#:[id number] cefTRIAXone 1 gm In 50 Sodium Chloride 0.9% 50 ml @ 100 mls/hr IVPB Q24HR [facility] Rx#:[id number] Oral 590 Blood Product 0 Rc As-3 Unit 0 [id number] Output: Drainage 665 1075 Right Lower Abdomen 665 1075 Urine 575 1150 Other: Voiding Method Indwelling Catheter Indwelling Catheter Indwelling Catheter - Labs CBC & Chem 7: 02/01/19 06:49 02/01/19 06:49 Labs: Abnormal Lab Results - Last 24 Hours (Table) 01/29/19 01/31/19 02/01/19 Range/Units 16:50 18:17 06:49 RBC 2.29 L (3.80-5.40) m/uL Hgb 6.4 L* (11.4-16.0) gm/dL Hct 19.4 L* (34.0-46.0) % RDW 18.1 H (11.5-15.5) % Plt Count 125 L (150-450) k/uL Lymphocytes # 0.9 L (1.0-4.8) k/uL Sodium 123 L (137-145) mmol/L Carbon Dioxide 17 L (22-30) mmol/L BUN 72 H (7-17) mg/dL Creatinine 2.00 H (0.52-1.04) mg/dL Calcium 7.9 L (8.4-10.2) mg/dL Total Bilirubin (0.2-1.3) mg/dL AST (14-36) U/L Total Protein (6.3-8.2) g/dL Albumin (3.5-5.0) g/dL Crossmatch See Detail 02/01/19 Range/Units 06:49 RBC (3.80-5.40) m/uL Hgb (11.4-16.0) gm/dL Hct (34.0-46.0) % RDW (11.5-15.5) % Plt Count (150-450) k/uL Lymphocytes # (1.0-4.8) k/uL Sodium 126 L (137-145) mmol/L Carbon Dioxide 19 L (22-30) mmol/L BUN 68 H (7-17) mg/dL Creatinine 1.72 H (0.52-1.04) mg/dL Calcium 8.1 L (8.4-10.2) mg/dL Total Bilirubin 2.4 H (0.2-1.3) mg/dL AST 66 H (14-36) U/L Total Protein 5.0 L (6.3-8.2) g/dL Albumin 2.6 L (3.5-5.0) g/dL Crossmatch Microbiology - Last 24 Hours (Table) 01/30/19 11:24 Urine Culture - Final Urine,Catheterized Escherichia coli Assessment and Plan Plan: Assessment: 1. Acute kidney injury mostly prerenal secondary to acute anemia and diuresis improving with IV hydration. Creatinine was 2.93 on admission and is 1.7 to t chetna. 2. Chronic kidney disease stage III with baseline creatinine in the range of 1.2-1.5. Etiology is hepatorenal syndrome. 3. Acute blood loss anemia status post 4 units of blood transfusion. H emoglobin 6.4 this morning. She is having epistaxis. Status post IV DDAVP on January 31. 4. Metabolic acidosis secondary to acute kidney injury. Better. 5. Hyperkalemia secondary to acute kidney injury and metabolic acidosis. Better. 6. History of liver cirrhosis. 7. Hypovolemic hyponatremia improving with IV hydration. 8. Ascites. Patient undergoes weekly paracentesis. Last paracentesis on January 29 with 5 L drained. 9. Chronic hypotension related to underlying liver cirrhosis maintained on midodrine. 10. UTI. Urine culture positive for E. coli maintain on antibiotics. Plan: Maintain bicarb drip at 75 mL an hour. 1200 mL fluid restriction. Maintain ensure 3 times daily with meals. Repeat IV DDAVP 1 dose today. Maintain Aranesp. Hold off on diuretics. Due to active bleeding and lethargy, patient will be transferred back to the intensive care unit. Scheduled to receive 2 units of blood transfusion today.
--- NOTE | 2019-02-01 13:54 | P.PN ---
Subjective Progress Note Date: 02/01/19 Principal diagnosis: Hypotension, urinary tract infection, anemia This is a 48-year-old white female patient of Dr. Srinivas Jones, who presented to the emergency department on 01/29/2019 following her routine weekly paracentesis with removal of 5 L of ascitic fluid, following the procedure patient became hypotensive, she was given albumin was procedure, she remains hypotensive and she was sent to the emergency department for evaluation. She has history of alcoholic liver disease, and that she has weekly paracentesis, with removal of average of 5-7 L of fluid. Her EtOH use is currently in remission. Other medical history includes chronic kidney disease, previous history of GI bleeding, esophageal varices with banding, gastric bypass surgery in 2002, anxiety, and current nicotine dependence. Patient denied any fever or chills. Afebrile. Denies any pulmonary complaints, denies any urinary complaints, lab work was drawn and showed white blood cell count 7.7, hemoglobin 4.6, INR is 1.4, sodium is 121, potassium 6.0, chloride is 97, CO2 is 13, BUN 76, creatinine is 2.93, troponin was negative 1, urinalysis was grossly infected. Patient was given a liter bolus in the emergency department, currently her IV fluids are running at 75 ML per hour, obvious signs of bleeding, no hematemesis, no melena, no hematochezia, patient has received 2 units of packed red blood cells, and this morning's hemoglobin is 5.8, she remains afebrile, white blood cell count is within normal limits. At 6.6, serum sodium is 120, potassium is 5.7, chloride is 99, CO2 is 14, BUN 75 and creatinine is 2.64. Patient was given a dose of Kayexalate and not sodium bicarb in the emergency department with improvement of patient's serum potassium, he is voiding, she is awake and alert, answering questions, she denies any acute complaints, no shortness of breath or chest pain, no urinary complaints. On 01/31/2017 patient seen in follow-up in the intensive care unit, she is awake and alert, oriented 3, resting in bed, in no acute distress, on room air with pulse ox of 98%, afebrile, hemodynamically patient is stable, blood pressures 108/51, IV D5W with 3 A of bicarb at a rate of 50 ML per hour, no vasoactive drips, no other drips. Today's labs have been reviewed, and showed white blood cell count of 7.4, hemoglobin is 7.1, serum sodium is 121, potassium is 5.1, chloride is 98, CO2 is 15, BUN is 74 and creatinine is 2.21. Urine culture is pending, patient remains on Rocephin for empiric antibiotic coverage for urinary tract infection, nephrology is following, patient was started on Tolvaptan for hyponatremia, neurologically patient is intact, awake and alert, no neurologic deficits, no seizures, no altered mentation. She is tolerating oral intake. She has no specific complaints, no difficulty breathing, no chest pain. No signs of bleeding. On 02/01/2019 patient is seen in follow-up on the medical surgical floor, on 4 N., patient was transferred out of the intensive care unit yesterday, in stable condition, however overnight patient developed a nosebleed, which has been continuous, and this morning's hemoglobin is down to 6.4 from 7.1 on yesterday's labs, the patient has been hemodynamically stable, with pulse ox in the 100%, patient is afebrile. Patient is status post transfusion with 4 units of packed red blood cells this admission, we will receive another unit of packed red blood cells today for hemoglobin of 6.4. Note that the initial hemoglobin on admission was 4.6 and patient is chronically anemic. Apparently physician was not notified last night about the ongoing nosebleed and attending physician was notified this morning. Dr. Salmeron from [facility] was consulted, and patient was requested admission to the intensive care unit for closer monitoring. Patient was seen and evaluated by Dr. Jamil, she is curre ntly resting comfortably in bed, she is awake and alert, in no acute distress, the nosebleed seems to have stopped, patient has her nose clip off, and she is on room air, maintaining stable oxygenation, rest the blood work was reviewed, showed white blood cell, 5.1, serum sodium is improving, up to 126 today, potassium is 4.6, port is 99, CO2 is 19, renal profile is slightly improved, with B1 is 68 and creatinine is 1.72. Platelet count is 125, echo PT/INR today. Serum ammonia level, GI service is following. Urine culture was positive for E. coli. Law catheter is in place, patient is nonoliguric, puncture on the right abdominal previous paracentesis has been having increased drainage of ascites fluid, and there has been ostomy appliance applied is connected to a Law bag. Objective - Vital Signs Vital signs: Vital Signs Temp 98.2 F 02/01/19 11:56 Pulse 71 02/01/19 11:56 Resp 17 02/01/19 11:56 BP 108/59 02/01/19 11:56 Pulse Ox 100 02/01/19 11:56 Intake & Output 01/31/19 02/01/19 02/01/19 18:59 06:59 18:59 Intake Total 1000 590 0 Output Total 1240 2225 Balance -240 -1635 0 Intake: IV 1000 Albumin Human 25% 50 ml 150 In Empty Bag 1 bag @ 50 mls/hr IVPB Q1H [facility] Rx#: [id number] Desmopressin Acetate 32 50 mcg In Sodium Chloride 0. 9% 50 ml @ 200 mls/hr IVPB ONCE ONE Rx#: [id number] Dextrose 5% in Water 1, 550 000 ml @ 75 mls/hr IV . [id number] ONE with Sodium Bicarb (1 Meq/ml) 150 ml Rx#:[id number] Sodium Chloride 0.45% 1, 200 000 ml @ 50 mls/hr IV . Q23H ONE with Sodium Bicarb (1 Meq/ml) 150 ml Rx#:[id number] cefTRIAXone 1 gm In 50 Sodium Chloride 0.9% 50 ml @ 100 mls/hr IVPB Q24HR [facility] Rx#:[id number] Oral 590 Blood Product 0 Rc As-3 Unit 0 [id number] Output: Drainage 665 1075 Right Lower Abdomen 665 1075 Urine 575 1150 Other: Voiding Method Indwelling Catheter Indwelling Catheter Indwelling Catheter - Exam GENERAL EXAM: Alert, obese, 48-year-old white female, resting in bed on room air, comfortable in no apparent distress. HEAD: Normocephalic/atraumatic. EYES: Normal reaction of pupils, equal size. Conjunctiva pink, sclera white. NOSE: Clear with pink turbinates. THROAT: No erythema or exudates. NECK: No masses, no JVD, no thyroid enlargement, no adenopathy. CHEST: No chest wall deformity. Symmetrical expansion. LUNGS: Equal air entry with no crackles, wheeze, rhonchi or dullness. CVS: Regular rate and rhythm, normal S1 and S2, no gallops, no murmurs, no rubs ABDOMEN: Soft, nontender, distended, but soft. No hepatosplenomegaly, normal bowel sounds, no guarding or rigidity. Paracentesis site in the right lower abdomen has ostomy appliance applied in view of increased drainage and there has been moderate amount of ascites fluid ending into a Law bag is connected to the ostomy appliance. there is extensive yeast in the abdominal folds EXTREMITIES: No clubbing, no edema, no cyanosis, 2+ pulses and upper and lower extremities. MUSCULOSKELETAL: Muscle strength and tone normal. SPINE: No scoliosis or deformity SKIN: No rashes CENTRAL NERVOUS SYSTEM: Alert and oriented -3. No focal deficits, tone is normal in all 4 extremities. PSYCHIATRIC: Alert and oriented -3. Appropriate affect. Intact judgment and insight. - Labs CBC & Chem 7: 02/01/19 06:49 02/01/19 06:49 Labs: Abnormal Lab Results - Last 24 Hours (Table) 01/29/19 01/31/19 02/01/19 Range/Units 16:50 18:17 06:49 RBC 2.29 L (3.80-5.40) m/uL Hgb 6.4 L* (11.4-16.0) gm/dL Hct 19.4 L* (34.0-46.0) % RDW 18.1 H (11.5-15.5) % Plt Count 125 L (150-450) k/uL Lymphocytes # 0.9 L (1.0-4.8) k/uL Sodium 123 L (137-145) mmol/L Carbon Dioxide 17 L (22-30) mmol/L BUN 72 H (7-17) mg/dL Creatinine 2.00 H (0.52-1.04) mg/dL Calcium 7.9 L (8.4-10.2) mg/dL Total Bilirubin (0.2-1.3) mg/dL AST (14-36) U/L Total Protein (6.3-8.2) g/dL Albumin (3.5-5.0) g/dL Crossmatch See Detail 02/01/19 Range/Units 06:49 RBC (3.80-5.40) m/uL Hgb (11.4-16.0) gm/dL Hct (34.0-46.0) % RDW (11.5-15.5) % Plt Count (150-450) k/uL Lymphocytes # (1.0-4.8) k/uL Sodium 126 L (137-145) mmol/L Carbon Dioxide 19 L (22-30) mmol/L BUN 68 H (7-17) mg/dL Creatinine 1.72 H (0.52-1.04) mg/dL Calcium 8.1 L (8.4-10.2) mg/dL Total Bilirubin 2.4 H (0.2-1.3) mg/dL AST 66 H (14-36) U/L Total Protein 5.0 L (6.3-8.2) g/dL Albumin 2.6 L (3.5-5.0) g/dL Crossmatch Microbiology - Last 24 Hours (Table) 01/30/19 11:24 Urine Culture - Final Urine,Catheterized Escherichia coli Assessment and Plan Plan: Assessment #1. Hypotension following a large volume paracentesis, multifactorial, but largely hypovolemic. In part could be do to underlying urinary tract infection, anemia #2. Acute urinary tract infection, cultures positive for E. coli #3. Acute on chronic anemia, with no obvious signs of bleeding. Requiring transfusion with a total of 4 units of blood #4. Alcoholic liver cirrhosis with chronic ascites, and weekly large-volume paracentesis #5. Hyponatremia #6. Hyperkalemia #7. Anion gap metabolic acidosis, likely related to acute kidney injury #8. Chronic kidney disease #9. Chronic nicotine dependence #10. History of alcohol dependence, currently in remission Plan: Continue current medical treatment, will obtain PT INR, ammonia level, patient is being transfused with an additional unit of packed red blood cells, hemodynamically stable, denies any difficulty breathing, no chest pain, she is alert and awake, no altered mentation. Nosebleed seems to have resolved at this time, she will be evaluated by ENT service. Patient will be transferred to the intensive care unit for closer monitoring, will keep the current antibiotic coverage for acute urinary tract infection. We'll continue to follow I performed a history & physical examination of the patient and discussed their management with my nurse practitioner, Ban Al. I reviewed the nurse practitioner's note and agree with the documented findings and plan of care. Lung sounds are positive for clear breath sounds. The findings and the impression was discussed with the patient. I attest to the documentation by the nurse practitioner. Time with Patient: Less than 30
[2019-02-01 14:07] LABS: Glucose,Whole Blood 101 mg/dL (75-99)
[2019-02-01 14:08] LABS: INR 1.3 (<1.2); Partial Thromboplastin Time 29.8 sec (22.0-30.0); Prothrombin Time 13.6 sec (9.0-12.0)
[2019-02-01 16:11] VITALS: BMI 35.9
[2019-02-01] MEDS ORDERED: OXYMETAZOLINE 0.05% NASL SPRAY 1 SPRAY BOTTLE NASAL STA (17:02)
[2019-02-02 05:38] LABS: Anisocytosis Slight; Basophils % (A) 0 %; Eosinophils # (A) 0.2 k/uL (0-0.7); Eosinophils % (A) 3 %; HCT 25.7 % (34.0-46.0); Lymphocytes % (A) 16 %; MCH 27.7 pg (25.0-35.0); MCHC 32.1 g/dL (31.0-37.0); MCV 86.4 fL (80.0-100.0); Mean Platelet Volume 7.5; Monocytes # (A) 0.6 k/uL (0-1.0); Monocytes % (A) 10 %; Neutrophils # (A) 4.4 k/uL (1.3-7.7); Neutrophils % (A) 69 %; Platelet Count 139 k/uL (150-450); RBC 2.97 m/uL (3.80-5.40); RDW 17.2 % (11.5-15.5); WBC 6.3 k/uL (3.8-10.6)
[2019-02-02 05:42] LABS: HGB 8.2 gm/dL (11.4-16.0)
[2019-02-02 06:00] LABS: INR 1.3 (<1.2); Prothrombin Time 13.7 sec (9.0-12.0)
[2019-02-02 06:07] LABS: Albumin 2.6 g/dL (3.5-5.0); Calcium 8.2 mg/dL (8.4-10.2); Magnesium 2.5 mg/dL (1.6-2.3); Potassium 4.2 mmol/L (3.5-5.1); Total Bilirubin 3.2 mg/dL (0.2-1.3); Total Protein 5.1 g/dL (6.3-8.2)
--- NOTE | 2019-02-02 07:14 | P.GSCN ---
History of Present Illness Consult date: 02/02/19 Reason for Consult: nosebleed right side Requesting physician: Srinivas Jones History of present illness: this is a 48-year-old white female who began having recurring epistaxis from the right side of her nose starting yesterday. She was transferred to the intensive care unit for observation and treatment. The patient has multiple medical problems and has end-stage liver issues. She was not on nasal cannula oxygen she was not hypertensive. Bleeding appears to be just from the right side of her nose. She has some intermittent bleeding last evening and early this morning from the right side of her nose. She is resting comfortably with her head elevated. She denies any sinonasal issues other than nasal conge stion.. She denies any yellow or green from her nose no facial pain and pressure etc. Review of Systems - Constitutional Reports fatigue - EENT Ears, nose, mouth and throat: Reports as per HPI - Cardiovascular Reports decreased exercise tolerance - Respiratory Denies pain - Gastrointestinal Denies change in bowel habits - Genitourinary Genitourinary: Denies flank pain Menstruation: Reports as per HPI - Musculoskeletal Reports as per HPI - Integumentary Denies depigmentation - Neurological Denies aphasia - Psychiatric Denies anxiety - Endocrine Denies cold intolerance - Hematologic/Lymphatic Denies easy bleeding - Allergic/Immunologic Denies allergic rhinitis Past Medical History Past Medical History: GI Bleed, Liver Disease Additional Past Medical History / Comment(s): ascites,"hernia", gi bleed/anemia -required blood transfusions History of Any Multi-Drug Resistant Organisms: None Reported Past Surgical History: Bariatric Surgery, Section Additional Past Surgical History / Comment(s): gastric bypass in 2002, recurrent paracentesis,colonoscopy, egd w/apc/variceal banding/bx Past Anesthesia/Blood Transfusion Reactions: No Reported Reaction Additional Past Anesthesia/Blood Transfusion Reaction / Comm: blood transfusions Past Psychological History: Anxiety Additional Psychological History / Comment(s): pt stated she lives with her son and significant other Smoking Status: Current every day smoker Past Alcohol Use History: Daily Additional Past Alcohol Use History / Comment(s): started smoking as teen smokes 1/2 ppd. pt stated she quit drinking 3--18 Past Drug Use History: None Reported - Past Family History Mother History Unknown: Yes Family Medical History: Congestive Heart Failure (CHF), COPD Father History Unknown: Yes Family Medical History: Diabetes Mellitus Medications and Allergies Home Medications Medication Instructions Recorded Confirmed Type ALPRAZolam [Xanax] 0.5 mg PO Q8HR PRN 11/06/18 01/29/19 History Pantoprazole [Protonix] 40 mg PO AC-BRKFST #30 tablet. 01/03/19 01/29/19 Rx Gabapentin [Neurontin] 100 mg PO TID PRN 01/29/19 01/29/19 History Allergies Allergy/AdvReac Type Severity Reaction Status Date / Time adhesive tape Allergy Rash/Hives Verified 01/29/19 13:34 Surgical - Exam Osteopathic Statement: *. No significant issues noted on an osteopathic structural exam other than those noted in the History and Physical/Consult. Vital Signs Temp Pulse Resp BP Pulse Ox 97.3 F L 63 19 95/35 100 01/29/19 15:17 01/29/19 15:17 01/29/19 15:17 01/29/19 15:17 01/29/19 15:17 - General well developed, no distress, cachectic, chronically ill - Eyes PERRL, normal ocular movement - ENT intranasal crusting and scabbing noted especially on the right side. Some old blood is seen but no acute epistaxis is noted normal pinna, normal nares, normal mucosa, no hearing loss, no congestion - Respiratory normal expansion, normal respiratory effort, clear to percussion, clear to auscultation - Neurologic normal coordination, normal sensation - Musculoskeletal normal gait, normal posture - Psychiatric oriented to time, oriented to person, oriented to place, speech is normal, memory intact Results - Labs 02/02/19 05:03 02/02/19 05:03 Abnormal Lab Results - Last 24 Hours (Table) 01/29/19 02/01/19 02/01/19 Range/Units 16:50 06:49 06:49 RBC 2.29 L (3.80-5.40) m/uL Hgb 6.4 L* (11.4-16.0) gm/dL Hct 19.4 L* (34.0-46.0) % RDW 18.1 H (11.5-15.5) % Plt Count 125 L (150-450) k/uL Lymphocytes # 0.9 L (1.0-4.8) k/uL PT (9.0-12.0) sec INR (<1.2) Sodium 126 L (137-145) mmol/L Carbon Dioxide 19 L (22-30) mmol/L BUN 68 H (7-17) mg/dL Creatinine 1.72 H (0.52-1.04) mg/dL POC Glucose (mg/dL) (75-99) mg/dL Calcium 8.1 L (8.4-10.2) mg/dL Magnesium (1.6-2.3) mg/dL Total Bilirubin 2.4 H (0.2-1.3) mg/dL AST 66 H (14-36) U/L Ammonia (<30) umol/L Total Protein 5.0 L (6.3-8.2) g/dL Albumin 2.6 L (3.5-5.0) g/dL Crossmatch See Detail 02/01/19 02/01/19 02/01/19 Range/Units 13:17 13:34 13:34 RBC (3.80-5.40) m/uL Hgb (11.4-16.0) gm/dL Hct (34.0-46.0) % RDW (11.5-15.5) % Plt Count (150-450) k/uL Lymphocytes # (1.0-4.8) k/uL PT 13.6 H (9.0-12.0) sec INR 1.3 H (<1.2) Sodium (137-145) mmol/L Carbon Dioxide (22-30) mmol/L BUN (7-17) mg/dL Creatinine (0.52-1.04) mg/dL POC Glucose (mg/dL) 101 H (75-99) mg/dL Calcium (8.4-10.2) mg/dL Magnesium (1.6-2.3) mg/dL Total Bilirubin (0.2-1.3) mg/dL AST (14-36) U/L Ammonia 35 H (<30) umol/L Total Protein (6.3-8.2) g/dL Albumin (3.5-5.0) g/dL Crossmatch 02/02/19 02/02/19 02/02/19 Range/Units 05:03 05:03 05:03 RBC 2.97 L (3.80-5.40) m/uL Hgb 8.2 L D (11.4-16.0) gm/dL Hct 25.7 L (34.0-46.0) % RDW 17.2 H (11.5-15.5) % Plt Count 139 L (150-450) k/uL Lymphocytes # (1.0-4.8) k/uL PT 13.7 H (9.0-12.0) sec INR 1.3 H (<1.2) Sodium 127 L (137-145) mmol/L Carbon Dioxide 21 L (22-30) mmol/L BUN 60 H (7-17) mg/dL Creatinine 1.46 H (0.52-1.04) mg/dL POC Glucose (mg/dL) (75-99) mg/dL Calcium 8.2 L (8.4-10.2) mg/dL Magnesium 2.5 H (1.6-2.3) mg/dL Total Bilirubin 3.2 H (0.2-1.3) mg/dL AST 64 H (14-36) U/L Ammonia (<30) umol/L Total Protein 5.1 L (6.3-8.2) g/dL Albumin 2.6 L (3.5-5.0) g/dL Crossmatch Microbiology - Last 24 Hours (Table) 01/30/19 11:24 Urine Culture - Final Urine,Catheterized Escherichia coli Diabetes panel 02/01/19 02/02/19 Range/Units 06:49 05:03 Sodium 126 L 127 L (137-145) mmol/L Potassium 4.6 4.2 (3.5-5.1) mmol/L Chloride 99 99 (98-107) mmol/L Carbon Dioxide 19 L 21 L (22-30) mmol/L BUN 68 H 60 H (7-17) mg/dL Creatinine 1.72 H 1.46 H (0.52-1.04) mg/dL Glucose 86 87 (74-99) mg/dL Calcium 8.1 L 8.2 L (8.4-10.2) mg/dL AST 66 H 64 H (14-36) U/L ALT 30 26 (9-52) U/L Alkaline Phosphatase 83 82 (38-126) U/L Total Protein 5.0 L 5.1 L (6.3-8.2) g/dL Albumin 2.6 L 2.6 L (3.5-5.0) g/dL Calcium panel 02/01/19 02/02/19 Range/Units 06:49 05:03 Calcium 8.1 L 8.2 L (8.4-10.2) mg/dL Albumin 2.6 L 2.6 L (3.5-5.0) g/dL Pituitary panel 02/01/19 02/02/19 Range/Units 06:49 05:03 Sodium 126 L 127 L (137-145) mmol/L Potassium 4.6 4.2 (3.5-5.1) mmol/L Chloride 99 99 (98-107) mmol/L Carbon Dioxide 19 L 21 L (22-30) mmol/L BUN 68 H 60 H (7-17) mg/dL Creatinine 1.72 H 1.46 H (0.52-1.04) mg/dL Glucose 86 87 (74-99) mg/dL Calcium 8.1 L 8.2 L (8.4-10.2) mg/dL Adrenal panel 02/01/19 02/02/19 Range/Units 06:49 05:03 Sodium 126 L 127 L (137-145) mmol/L Potassium 4.6 4.2 (3.5-5.1) mmol/L Chloride 99 99 (98-107) mmol/L Carbon Dioxide 19 L 21 L (22-30) mmol/L BUN 68 H 60 H (7-17) mg/dL Creatinine 1.72 H 1.46 H (0.52-1.04) mg/dL Glucose 86 87 (74-99) mg/dL Calcium 8.1 L 8.2 L (8.4-10.2) mg/dL Total Bilirubin 2.4 H 3.2 H (0.2-1.3) mg/dL AST 66 H 64 H (14-36) U/L ALT 30 26 (9-52) U/L Alkaline Phosphatase 83 82 (38-126) U/L Total Protein 5.0 L 5.1 L (6.3-8.2) g/dL Albumin 2.6 L 2.6 L (3.5-5.0) g/dL Assessment and Plan (1) Epistaxis Current Visit: Yes Status: Acute Code(s): R04.0 - EPISTAXIS SNOMED Code(s): 827150407 Plan: this patient's nosebleed has stopped spontaneously and it appears to be secondary to a chronic and acute rhinitis. I'm recommending the use of Bactroban ointment intranasally for presumptive intranasal staph infection with associated crusting and scabbing. We will utilize his 3 times a day. Please contact me if any bleeding should recur. I elected not to place a pack as the bleeding seems to be under good control. Time with Patient: Greater than 30
[2019-02-02] MEDS: LACTULOSE 20 GM/30 ML CUP PO SCH ×2 (08:09→20:24)
[2019-02-02] MEDS: PANTOPRAZOLE 40 MG TABLET PO SCH (08:10)
[2019-02-02] MEDS: MIDODRINE 5 MG TAB PO SCH ×3 (08:10→16:40)
[2019-02-02] MEDS: MUPIROCIN 2% OINT 22 GM TUBE TOPICAL SCH ×3 (08:23→20:24)
--- NOTE | 2019-02-02 09:55 | P.PN ---
Subjective Patient is seen in follow-up for acute kidney injury on chronic kidney disease. Patient has chronic kidney disease stage III with baseline creatinine in the range of 1.2-1.5. Patient has history of underlying liver cirrhosis. She undergoes weekly paracentesis. Patient was maintained on Lasix at home. She presented to the hospital due to generalized weakness and lethargy. Hemoglobin was 4.6 on admission and she has received 6 units of blood transfusion so far. Hemoglobin 8.2 today. Epistaxis has resolved. Sodium level is up to 127. She is maintained on bicarb drip at 75 mL an hour. Denies chest pain or shortness of breath. Urine output 2 L over the last 24 hours. Vital signs are stable. General: The patient appeared well nourished and normally developed. HEENT: Head exam is unremarkable. Neck is without jugular venous distension. LUNGS: Breath sounds decreased. HEART: Rate and Rhythm are regular. First and second heart sounds normal. No murmurs, rubs or gallops. ABDOMEN: Abdominal exam reveals normal bowel sounds. Nontender. EXTREMITITES: Trace edema. Objective - Vital Signs Vital signs: Vital Signs Temp 97.8 F 02/02/19 08:00 Pulse 66 02/02/19 09:00 Resp 15 02/02/19 09:00 BP 97/49 02/02/19 09:00 Pulse Ox 98 02/02/19 09:00 Intake & Output 02/01/19 02/02/19 02/02/19 18:59 06:59 18:59 Intake Total 1515 900 275 Output Total 975 1155 214 Balance 540 -255 61 Weight 107 kg Intake: IV 150 900 125 Dextrose 5% in Water 1, 150 900 75 000 ml @ 75 mls/hr IV . [id number] ONE with Sodium Bicarb (1 Meq/ml) 150 ml Rx#:[id number] cefTRIAXone 1 gm In 50 Sodium Chloride 0.9% 50 ml @ 100 mls/hr IVPB Q24HR [facility] Rx#:[id number] Intake, IV Titration 150 Amount Dextrose 5% in Water 1, 150 000 ml @ 75 mls/hr IV . [id number] ONE with Sodium Bicarb (1 Meq/ml) 150 ml Rx#:[id number] Oral 120 Blood Product 1245 Rc As-1 Unit 310 [id number] Rc As-3 Unit 310 [id number] Output: Drainage 400 325 45 Right Lower Abdomen 400 325 45 Urine 575 830 169 Other: Voiding Method Indwelling Catheter Indwelling Catheter Indwelling Catheter - Labs CBC & Chem 7: 02/02/19 05:03 02/02/19 05:03 Labs: Abnormal Lab Results - Last 24 Hours (Table) 01/29/19 02/01/19 02/01/19 Range/Units 16:50 13:17 13:34 RBC (3.80-5.40) m/uL Hgb (11.4-16.0) gm/dL Hct (34.0-46.0) % RDW (11.5-15.5) % Plt Count (150-450) k/uL PT 13.6 H (9.0-12.0) sec INR 1.3 H (<1.2) Sodium (137-145) mmol/L Carbon Dioxide (22-30) mmol/L BUN (7-17) mg/dL Creatinine (0.52-1.04) mg/dL POC Glucose (mg/dL) 101 H (75-99) mg/dL Calcium (8.4-10.2) mg/dL Magnesium (1.6-2.3) mg/dL Total Bilirubin (0.2-1.3) mg/dL AST (14-36) U/L Ammonia (<30) umol/L Total Protein (6.3-8.2) g/dL Albumin (3.5-5.0) g/dL Crossmatch See Detail 02/01/19 02/02/19 02/02/19 Range/Units 13:34 05:03 05:03 RBC 2.97 L (3.80-5.40) m/uL Hgb 8.2 L D (11.4-16.0) gm/dL Hct 25.7 L (34.0-46.0) % RDW 17.2 H (11.5-15.5) % Plt Count 139 L (150-450) k/uL PT (9.0-12.0) sec INR (<1.2) Sodium 127 L (137-145) mmol/L Carbon Dioxide 21 L (22-30) mmol/L BUN 60 H (7-17) mg/dL Creatinine 1.46 H (0.52-1.04) mg/dL POC Glucose (mg/dL) (75-99) mg/dL Calcium 8.2 L (8.4-10.2) mg/dL Magnesium 2.5 H (1.6-2.3) mg/dL Total Bilirubin 3.2 H (0.2-1.3) mg/dL AST 64 H (14-36) U/L Ammonia 35 H (<30) umol/L Total Protein 5.1 L (6.3-8.2) g/dL Albumin 2.6 L (3.5-5.0) g/dL Crossmatch 02/02/19 Range/Units 05:03 RBC (3.80-5.40) m/uL Hgb (11.4-16.0) gm/dL Hct (34.0-46.0) % RDW (11.5-15.5) % Plt Count (150-450) k/uL PT 13.7 H (9.0-12.0) sec INR 1.3 H (<1.2) Sodium (137-145) mmol/L Carbon Dioxide (22-30) mmol/L BUN (7-17) mg/dL Creatinine (0.52-1.04) mg/dL POC Glucose (mg/dL) (75-99) mg/dL Calcium (8.4-10.2) mg/dL Magnesium (1.6-2.3) mg/dL Total Bilirubin (0.2-1.3) mg/dL AST (14-36) U/L Ammonia (<30) umol/L Total Protein (6.3-8.2) g/dL Albumin (3.5-5.0) g/dL Crossmatch Microbiology - Last 24 Hours (Table) 01/30/19 11:24 Urine Culture - Final Urine,Catheterized Escherichia coli Assessment and Plan Plan: Assessment: 1. Acute kidney injury mostly prerenal secondary to acute anemia and diuresis improving with IV hydration. Creatinine was 2.93 on admission and is 1.46 to today. 2. Chronic kidney disease stage III with baseline creatinine in the range of 1.2-1.5. Etiology is hepatorenal syndrome. 3. Acute blood loss anemia status post 6 units of blood transfusion. Hemoglobin 8.2 this morning. Epistaxis resolved. Status post IV DDAVP on January 31 and . 4. Metabolic acidosis secondary to acute kidney injury. Better. 5. Hyperkalemia secondary to acute kidney injury and metabolic acidosis. Better. 6. History of liver cirrhosis. 7. Hypovolemic hyponatremia improving with IV hydration. 8. Ascites. Patient undergoes weekly paracentesis. Last paracentesis on January 29 with 5 L drained. 9. Chronic hypotension related to underlying liver cirrhosis maintained on midodrine. 10. UTI. Urine culture positive for E. coli maintain on antibiotics. Plan: Maintain bicarb drip at 75 mL an hour. 1200 mL fluid restriction. Maintain ensure 3 times daily with meals. Maintain Aranesp. Hold off on diuretics. DC Law catheter. Stable to be transferred out of the intensive care unit.
--- NOTE | 2019-02-02 10:33 | PN ---
PROGRESS NOTE DATE OF SERVICE: February 02, 2019. This is a 48-year-old female that was in the ICU initially. She came with alcoholic liver disease and cirrhosis. She was seen here initially and transferred out to the general medical floor. We were asked to see her again yesterday because of epistaxis. The epistaxis had been going on two nights ago. The nurse had not called anybody about it. We were asked to see her again because of the epistaxis, her anemia and some lethargy with somnolence as well as mild hypotension. She was seen by Dr. Tellez. She has had no further bleeding. She is on room air. Not receiving any supplemental oxygen. Her IV is D5W with 3 amps of bicarb at 75 mL an hour started by the size mixer. She does have E coli in the urine and she was given Rocephin and has been on Rocephin for that. Today, she is much more awake. She is getting lactulose for her elevated ammonia level. Mental status is much improved. She is much more awake and alert. She has no particular complaints today. PHYSICAL EXAMINATION: VITAL SIGNS: Current vital signs are reviewed. Temperature 97.8. Heart rate 66, respiratory rate 15, blood pressure 97/49, mean 65, room air saturation 98%. Appears in no acute distress. HEENT examination is grossly unremarkable. Mucous membranes are moist. No oral lesions. NECK: Supple. Full range of motion. No adenopathy or thyromegaly. NECK veins are flat. CARDIOVASCULAR examination reveals regular rhythm and rate. Heart rate mid 60s. S1, S2 normal. There is no murmur. LUNGS: Reveal clear breath sounds equal. No wheezes, rhonchi, or crackles. ABDOMEN: Soft. Bowel sounds are heard. EXTREMITIES are intact. No cyanosis, clubbing, or edema. SKIN without rash. NEUROLOGIC examination is much improved. She is much more awake and alert. She can converse. She makes good eye contact. All 4 extremities move well. Microbiologic studies from January 30 show urine to be positive for E coli. She is on Rocephin for that. LABORATORY DATA: Reviewed. White count 6.3, hemoglobin 8.2, hematocrit 25.7, platelet count improved at 139,000. PT 13.7, INR 1.3. Sodium 127, potassium 4.2, chloride 99, CO2 21. Anion gap is 7, BUN and creatinine were 60 and 1.46. The rest of the labs look okay. Her ammonia level was 35. Medications are reviewed. ASSESSMENT: 1. Hypotension, following a large volume paracentesis. 2. Possible underlying sepsis secondary to E coli in the urine. 3. Acute on chronic anemia, exacerbated by epistaxis, resolved. 4. Alcoholic liver cirrhosis with chronic ascites and weekly large volume paracentesis. 5. Chronic hyponatremia. 6. Mild hyperkalemia. 7. Anion gap metabolic acidosis secondary to acute kidney injury. 8. Chronic kidney disease. 9. Chronic nicotine dependence. 10.History of alcohol dependence. PLAN: The patient is doing much better. We will just confirm with Nephrology that the fluid should be continued at the current amount. ENT saw the patient. Epistaxis was controlled. She is on Rocephin for E coli urinary tract infection. Blood pressure much improved. Her anemia is much better. No additional epistaxis. The patient will be transferred out to the general medical floor. MMODL / AYLAN: [id number] /
[2019-02-02] MEDS: DEXTROSE 5% IN WATER 1,000 ML with SODIUM BICARB (1 MEQ/ML) 150 ML IV SCH (11:47)
--- NOTE | 2019-02-02 16:50 | P.PN ---
Subjective Progress Note Date: 02/02/19 (delayed charting patient seen at 0830) Principal diagnosis: hypotension Patient is a 48-year-old female patient of Dr. Jones with past medical history of alcohol-induced cirrhosis requiring chronic paracentesis, chronic kidney disease stage III, esophageal varices is with banding, gastric bypass, and tobacco abuse who presented to the ER on 01/29 following an episode of paracentesis. She had 5 L of ascitic fluid removed became hypotensive. She had received albumin during the procedure but remained hypotensive. She went to the emergency department for evaluation. In the ER she was noted to have a low sodium of 121, hemoglobin 4.6, potassium 6, BUNs 76, and creatinine 9.3. Urinalysis appeared chronically infected. She was given IV fluids in the ER as well as 2 units of packed red blood cells. She was started on Rocephin for possible UTI. She is admitted to the ICU for further monitoring. Critical care and GI were consulted. Nephrology was also consulted patient was ultimately started on a bicarb drip. She was also started on lactulose. Her hemoglobin remained stable after she received a total of 6 units of packed red blood cells. Patient did receive 1 dose of IV DDAVP which improvement in her sodium. Patient seen and examined at bedside. No chest pain, shortness of breath. Reports multiple loose stools yesterday and states that she typically takes 2 doses of lactulose at home as she develops too much diarrhea on 3 doses. She also complains of some nausea this morning. Denies weakness. Lives with her and son. Objective - Vital Signs Vital signs: Vital Signs Temp 97.7 F 02/02/19 16:00 Pulse 72 02/02/19 16:00 Resp 21 02/02/19 16:00 BP 98/52 02/02/19 16:00 Pulse Ox 91 L 02/02/19 16:00 Intake & Output 02/01/19 02/02/19 02/02/19 18:59 06:59 18:59 Intake Total 1515 900 375 Output Total 975 1655 579 Balance 540 -245 -314 Weight 107 kg Intake: IV 150 900 125 Dextrose 5% in Water 1, 150 900 75 000 ml @ 75 mls/hr IV . [id number] ONE with Sodium Bicarb (1 Meq/ml) 150 ml Rx#:[id number] cefTRIAXone 1 gm In 50 Sodium Chloride 0.9% 50 ml @ 100 mls/hr IVPB Q24HR DOMINIQUE Rx#:[id number] Intake, IV Titration 250 Amount Dextrose 5% in Water 1, 150 000 ml @ 75 mls/hr IV . [id number] ONE with Sodium Bicarb (1 Meq/ml) 150 ml Rx#:[id number] Dextrose 5% in Water 1, 100 000 ml @ 75 mls/hr IV . [id number] DOMINIQUE with Sodium Bicarb (1 Meq/ml) 150 ml Rx#:[id number] Oral 120 Blood Product 1245 Rc As-1 Unit 310 [id number] Rc As-3 Unit 310 [id number] Output: Drainage 400 325 160 Right Lower Abdomen 400 325 160 Urine 575 830 419 Other: Voiding Method Indwelling Catheter Indwelling Catheter Indwelling Catheter # Bowel Movements 2 - Exam General: non toxic, obese, appears older than stated age, mild distress Derm: warm, dry, multiple areas of ecchymoses Head: atraumatic, normocephalic, symmetric Eyes: EOMI, no lid lag, anicteric sclera Mouth: no lip lesion, mucus membranes moist Cardiovascular: S1S2 reg, no murmur, positive posterior tibial pulse bilateral, Lungs: Crackles bilateral bases, no rhonchi, no rales , no accessory muscle use Abdominal: soft, nontender to palpation, no guarding, no appreciable organomegaly Ext: no gross muscle atrophy, 2+ edema, no contractures Neuro: CN II-XI grossly intact, no focal neuro deficits Psych: Alert, oriented, appropriate affect , difficulty maintaining concentration - Labs CBC & Chem 7: 02/02/19 05:03 02/02/19 05:03 Labs: Abnormal Lab Results - Last 24 Hours (Table) 01/29/19 02/02/19 02/02/19 Range/Units 16:50 05:03 05:03 RBC 2.97 L (3.80-5.40) m/uL Hgb 8.2 L D (11.4-16.0) gm/dL Hct 25.7 L (34.0-46.0) % RDW 17.2 H (11.5-15.5) % Plt Count 139 L (150-450) k/uL PT (9.0-12.0) sec INR (<1.2) Sodium 127 L (137-145) mmol/L Carbon Dioxide 21 L (22-30) mmol/L BUN 60 H (7-17) mg/dL Creatinine 1.46 H (0.52-1.04) mg/dL Calcium 8.2 L (8.4-10.2) mg/dL Magnesium 2.5 H (1.6-2.3) mg/dL Total Bilirubin 3.2 H (0.2-1.3) mg/dL AST 64 H (14-36) U/L Total Protein 5.1 L (6.3-8.2) g/dL Albumin 2.6 L (3.5-5.0) g/dL Stool Occult Blood (Negative) Crossmatch See Detail 02/02/19 02/02/19 Range/Units 05:03 11:34 RBC (3.80-5.40) m/uL Hgb (11.4-16.0) gm/dL Hct (34.0-46.0) % RDW (11.5-15.5) % Plt Count (150-450) k/uL PT 13.7 H (9.0-12.0) sec INR 1.3 H (<1.2) Sodium (137-145) mmol/L Carbon Dioxide (22-30) mmol/L BUN (7-17) mg/dL Creatinine (0.52-1.04) mg/dL Calcium (8.4-10.2) mg/dL Magnesium (1.6-2.3) mg/dL Total Bilirubin (0.2-1.3) mg/dL AST (14-36) U/L Total Protein (6.3-8.2) g/dL Albumin (3.5-5.0) g/dL Stool Occult Blood Positive H (Negative) Crossmatch Assessment and Plan Assessment: Decompensated alcoholic cirrhosis -Continue with sodium bicarb as needed, avoid diuretics at this point in time -Likely will need repeat paracentesis early next week -GI recommendations -Maintain lactulose, not on beta sofie secondary to hypotension Severe anemia -Status post 6 units of packed red blood cells -Would not obtain iron studies at this time secondary to recent transfusions -Iron studies from August 2018 shows severe iron deficiency anemia -Continue Aranesp -will start oral iron therapy. If fails would do IV E. Coli UTI, POA - D/C laguerre - rocephin for a total of 7 days of abx, can transition to orals on d/c Thrombocytopenia - chronic and stable - follow CBC Hyponatremia, Metabolic acidosis, TERRANCE likely due to diuresis and anemia, improving - IV hydration with sodium bicarb - nephro recs - avoid additional nephrotoxic agents - follow BMP Tobacco abuse - cessation - nicotine replacement not required at this time due to no withdrawal sx Epistasix, resolved - ENT recs appreciated - no intervention at this time - bactroban for probable staph infection Resolved: Hypotension Hyperkalemia DVT prophylaxis: SCDs Discussed with: patient and nursing Anticipated discharge: 1-[address]: home A total of 35 minutes was spent on the care of this complex patient more than 50% of the time was spent in counseling and care coordination.
[2019-02-03] MEDS: GABAPENTIN 100 MG CAP PO PRN ×2 (00:55→21:57)
[2019-02-03] MEDS: ALPRAZolam 0.5 MG TAB PO PRN ×2 (00:55→21:57)
[2019-02-03] MEDS: DEXTROSE 5% IN WATER 1,000 ML with SODIUM BICARB (1 MEQ/ML) 150 ML IV SCH (02:28)
[2019-02-03 05:33] LABS: Anisocytosis Slight; Basophils # (A) 0.1 k/uL (0-0.2); Basophils % (A) 1 %; Eosinophils # (A) 0.2 k/uL (0-0.7); Eosinophils % (A) 3 %; HCT 25.9 % (34.0-46.0); Hypochromasia Slight; Lymphocytes # (A) 1.1 k/uL (1.0-4.8); Lymphocytes % (A) 15 %; MCH 27.3 pg (25.0-35.0); MCHC 30.8 g/dL (31.0-37.0); MCV 88.5 fL (80.0-100.0); Mean Platelet Volume 6.9; Monocytes # (A) 0.6 k/uL (0-1.0); Monocytes % (A) 8 %; Neutrophils # (A) 5.2 k/uL (1.3-7.7); Neutrophils % (A) 71 %; Platelet Count 155 k/uL (150-450); RBC 2.92 m/uL (3.80-5.40); RDW 17.5 % (11.5-15.5); WBC 7.4 k/uL (3.8-10.6)
[2019-02-03 05:40] LABS: Albumin 2.5 g/dL (3.5-5.0); Calcium 8.2 mg/dL (8.4-10.2); Potassium 3.9 mmol/L (3.5-5.1); Total Bilirubin 2.5 mg/dL (0.2-1.3); Total Protein 4.9 g/dL (6.3-8.2)
--- NOTE | 2019-02-03 09:18 | P.PN ---
Subjective Patient is seen in follow-up for acute kidney injury on chronic kidney disease. Patient has chronic kidney disease stage III with baseline creatinine in the range of 1.2-1.5. Patient has history of underlying liver cirrhosis. She undergoes weekly paracentesis. Patient was maintained on Lasix at home. She presented to the hospital due to generalized weakness and lethargy. Hemoglobin was 4.6 on admission and she has received 6 units of blood transfusion so far. Hemoglobin 8.0 today. Epistaxis has resolved. Sodium level is stable at 127. She is maintained on bicarb drip at 75 mL an hour. Denies chest pain or shortness of breath. She is nonoliguric. Vital signs are stable. General: The patient appeared well nourished and normally developed. HEENT: Head exam is unremarkable. Neck is without jugular venous distension. LUNGS: Breath sounds decreased. HEART: Rate and Rhythm are regular. First and second heart sounds normal. No m urmurs, rubs or gallops. ABDOMEN: Abdominal exam reveals normal bowel sounds. Nontender. EXTREMITITES: Trace edema. Objective - Vital Signs Vital signs: Vital Signs Temp 97.8 F 02/03/19 04:00 Pulse 67 02/03/19 05:00 Resp 8 L 02/03/19 05:00 BP 123/58 02/03/19 04:00 Pulse Ox 97 02/03/19 04:00 Intake & Output 02/02/19 02/03/19 02/03/19 18:59 06:59 18:59 Intake Total 450 225 Output Total 719 800 Balance -612 -746 Intake: IV 125 225 Dextrose 5% in Water 1, 75 000 ml @ 75 mls/hr IV . [id number] ONE with Sodium Bicarb (1 Meq/ml) 150 ml Rx#:[id number] Dextrose 5% in Water 1, 225 000 ml @ 75 mls/hr IV . [id number] ONE with Sodium Bicarb (1 Meq/ml) 150 ml Rx#:[id number] cefTRIAXone 1 gm In 50 Sodium Chloride 0.9% 50 ml @ 100 mls/hr IVPB Q24HR DOMINIQUE Rx#:[id number] Intake, IV Titration 325 Amount Dextrose 5% in Water 1, 150 000 ml @ 75 mls/hr IV . [id number] ONE with Sodium Bicarb (1 Meq/ml) 150 ml Rx#:[id number] Dextrose 5% in Water 1, 175 000 ml @ 75 mls/hr IV . [id number] DOMINIQUE with Sodium Bicarb (1 Meq/ml) 150 ml Rx#:[id number] Output: Drainage 210 400 Right Lower Abdomen 210 400 Urine 509 400 Straight 300 Other: Voiding Method Indwelling Catheter Self-Catheterization # Bowel Movements 1 - Labs CBC & Chem 7: 02/03/19 05:07 02/03/19 05:07 Labs: Abnormal Lab Results - Last 24 Hours (Table) 02/02/19 02/02/19 02/03/19 Range/Units 11:34 20:43 05:07 RBC 2.92 L (3.80-5.40) m/uL Hgb 8.0 L (11.4-16.0) gm/dL Hct 25.9 L (34.0-46.0) % MCHC 30.8 L (31.0-37.0) g/dL RDW 17.5 H (11.5-15.5) % Sodium (137-145) mmol/L Chloride (98-107) mmol/L BUN (7-17) mg/dL Creatinine (0.52-1.04) mg/dL Calcium (8.4-10.2) mg/dL Total Bilirubin (0.2-1.3) mg/dL AST (14-36) U/L Ammonia 59 H (<30) umol/L Total Protein (6.3-8.2) g/dL Albumin (3.5-5.0) g/dL Stool Occult Blood Positive H (Negative) 02/03/19 02/03/19 Range/Units 05:07 05:07 RBC (3.80-5.40) m/uL Hgb (11.4-16.0) gm/dL Hct (34.0-46.0) % MCHC (31.0-37.0) g/dL RDW (11.5-15.5) % Sodium 127 L (137-145) mmol/L Chloride 97 L (98-107) mmol/L BUN 66 H (7-17) mg/dL Creatinine 1.23 H (0.52-1.04) mg/dL Calcium 8.2 L (8.4-10.2) mg/dL Total Bilirubin 2.5 H (0.2-1.3) mg/dL AST 59 H (14-36) U/L Ammonia 47 H (<30) umol/L Total Protein 4.9 L (6.3-8.2) g/dL Albumin 2.5 L (3.5-5.0) g/dL Stool Occult Blood (Negative) Assessment and Plan Plan: Assessment: 1. Acute kidney injury mostly prerenal secondary to acute anemia and diuresis improving with IV hydration. Creatinine was 2.93 on admission and is 1.23 to today. 2. Chronic kidney disease stage III with baseline creatinine in the range of 1.2-1.5. Etiology is hepatorenal syndrome. 3. Acute blood loss anemia status post 6 units of blood transfusion. Hemoglobin 8 this morning. Epistaxis resolved. Status post IV DDAVP on January 31 and . 4. Metabolic acidosis secondary to acute kidney injury. Better. 5. Hyperkalemia secondary to acute kidney injury and metabolic acidosis. Better. 6. History of liver cirrhosis. 7. Hypovolemic hyponatremia improving with IV hydration. Stable. 8. Ascites. Patient undergoes weekly paracentesis. Last paracentesis on January 29 with 5 L drained. 9. Chronic hypotension related to underlying liver cirrhosis maintained on midodrine. 10. UTI. Urine culture positive for E. coli maintained on antibiotics. Plan: Discontinue bicarbonate drip. Start normal saline at 75 mL an hour. 1200 mL fluid restriction. Maintain ensure 3 times daily with meals. Maintain Aranesp. Hold off on diuretics.
[2019-02-03] MEDS ORDERED: POTASSIUM BICARBONATE/CIT AC 20 MEQ TABLET.EFF PO ONE (09:40)
[2019-02-03] MEDS: LACTULOSE 20 GM/30 ML CUP PO SCH ×2 (09:41→21:57)
[2019-02-03] MEDS: MIDODRINE 5 MG TAB PO SCH ×3 (09:41→18:13)
[2019-02-03] MEDS: PANTOPRAZOLE 40 MG TABLET PO SCH (09:41)
[2019-02-03] MEDS: MUPIROCIN 2% OINT 22 GM TUBE TOPICAL SCH ×3 (09:42→21:57)
[2019-02-03] MEDS: SODIUM CHLORIDE 0.9% 1,000 ML IV SCH ×2 (10:11→22:00)
--- NOTE | 2019-02-03 15:26 | P.PN ---
Subjective Progress Note Date: 02/03/19 (Delayed charting seen at 9:15) Principal diagnosis: hypotension Patient is a 48-year-old female patient of Dr. Jones with past medical history of alcohol-induced cirrhosis requiring chronic paracentesis, chronic kidney disease stage III, esophageal varices is with banding, gastric bypass, and tobacco abuse who presented to the ER on 01/29 following an episode of para centesis. She had 5 L of ascitic fluid removed became hypotensive. She had received albumin during the procedure but remained hypotensive. She went to the emergency department for evaluation. In the ER she was noted to have a low sodium of 121, hemoglobin 4.6, potassium 6, BUNs 76, and creatinine 9.3. Urinalysis appeared chronically infected. She was given IV fluids in the ER as well as 2 units of packed red blood cells. She was started on Rocephin for possible UTI. She is admitted to the ICU for further monitoring. Critical care and GI were consulted. Nephrology was also consulted patient was ultimately started on a bicarb drip. She was also started on lactulose. Her hemoglobin remained stable after she received a total of 6 units of packed red blood cells. Patient did receive 1 dose of IV DDAVP which improvement in her sodium. Her creatinine has improved daily. Her mentation also improved. Patient seen and examined at bedside. Feeling better today. 7 the bed all day yesterday. No nausea or vomiting. Eating well. Does not feel as though she is significantly distended, edema is at baseline. Would be okay with home health to help with medications. States that her works. Objective - Vital Signs Vital signs: Vital Signs Temp 97.7 F 02/03/19 08:00 Pulse 70 02/03/19 10:00 Resp 12 02/03/19 09:00 BP 102/47 02/03/19 08:00 Pulse Ox 93 L 02/03/19 08:00 Intake & Output 02/02/19 02/03/19 02/03/19 18:59 06:59 18:59 Intake Total 450 225 300 Output Total 719 800 160 Balance -269 -575 140 Intake: IV 125 225 Dextrose 5% in Water 1, 75 000 ml @ 75 mls/hr IV . [id number] ONE with Sodium Bicarb (1 Meq/ml) 150 ml Rx#:[id number] Dextrose 5% in Water 1, 225 000 ml @ 75 mls/hr IV . [id number] ONE with Sodium Bicarb (1 Meq/ml) 150 ml Rx#:[id number] cefTRIAXone 1 gm In 50 Sodium Chloride 0.9% 50 ml @ 100 mls/hr IVPB Q24HR DOMINIQUE Rx#:[id number] Intake, IV Titration 325 300 Amount Dextrose 5% in Water 1, 150 000 ml @ 75 mls/hr IV . [id number] ONE with Sodium Bicarb (1 Meq/ml) 150 ml Rx#:[id number] Dextrose 5% in Water 1, 175 000 ml @ 75 mls/hr IV . [id number] DOMINIQUE with Sodium Bicarb (1 Meq/ml) 150 ml Rx#:[id number] Sodium Chloride 0.9% 1, 300 000 ml @ 75 mls/hr IV . [id number] DOMINIQUE Rx#:[id number] Output: Drainage 210 400 160 Right Lower Abdomen 210 400 160 Urine 509 400 Straight 300 Other: Voiding Method Indwelling Catheter Self-Catheterization # Voids 1 # Bowel Movements 1 1 - Exam General: non toxic, obese, appears older than stated age, mild distress Derm: warm, dry, multiple areas of ecchymoses Head: atraumatic, normocephalic, symmetric Eyes: EOMI, no lid lag, anicteric sclera Mouth: no lip lesion, mucus membranes moist Cardiovascular: S1S2 reg, no murmur, positive posterior tibial pulse bilateral, Lungs: Crackles bilateral bases, no rhonchi, no rales , no accessory muscle use Abdominal: soft, nontender to palpation, no guarding, no appreciable organomegaly Ext: no gross muscle atrophy, 2+ edema, no contractures Neuro: CN II-XI grossly intact, no focal neuro deficits Psych: Alert, oriented, appropriate affect, better able to converse today - Labs CBC & Chem 7: 02/03/19 05:07 02/03/19 05:07 Labs: Abnormal Lab Results - Last 24 Hours (Table) 02/02/19 02/03/19 02/03/19 Range/Units 20:43 05:07 05:07 RBC 2.92 L (3.80-5.40) m/uL Hgb 8.0 L (11.4-16.0) gm/dL Hct 25.9 L (34.0-46.0) % MCHC 30.8 L (31.0-37.0) g/dL RDW 17.5 H (11.5-15.5) % Sodium 127 L (137-145) mmol/L Chloride 97 L (98-107) mmol/L BUN 66 H (7-17) mg/dL Creatinine 1.23 H (0.52-1.04) mg/dL Calcium 8.2 L (8.4-10.2) mg/dL Total Bilirubin 2.5 H (0.2-1.3) mg/dL AST 59 H (14-36) U/L Ammonia 59 H (<30) umol/L Total Protein 4.9 L (6.3-8.2) g/dL Albumin 2.5 L (3.5-5.0) g/dL 02/03/19 Range/Units 05:07 RBC (3.80-5.40) m/uL Hgb (11.4-16.0) gm/dL Hct (34.0-46.0) % MCHC (31.0-37.0) g/dL RDW (11.5-15.5) % Sodium (137-145) mmol/L Chloride (98-107) mmol/L BUN (7-17) mg/dL Creatinine (0.52-1.04) mg/dL Calcium (8.4-10.2) mg/dL Total Bilirubin (0.2-1.3) mg/dL AST (14-36) U/L Ammonia 47 H (<30) umol/L Total Protein (6.3-8.2) g/dL Albumin (3.5-5.0) g/dL Assessment and Plan Assessment: Decompensated alcoholic cirrhosis -Likely will need repeat paracentesis however at this point is still having significant drainage from prior paracentesis site -GI recommendations -Maintain lactulose, not on beta sofie secondary to hypotension Severe anemia -Status post 6 units of packed red blood cells -Would not obtain iron studies at this time secondary to recent transfusions -Iron studies from August 2018 shows severe iron deficiency anemia -Continue Aranesp -will start oral iron therapy. If fails would do IV. - HX of AVM and vericeal bleed. E. Coli UTI, POA - rocephin for a total of 7 days of abx, can transition to orals on d/c Thrombocytopenia, improving - chronic and stable - follow CBC Chronic Hyponatremia - IV hydration changed to 0.9NS per nephrology - avoid additional nephrotoxic agents - follow lytes - Sodium at baseline Tobacco abuse - cessation - nicotine replacement not required at this time due to no withdrawal sx Epistasix, resolved - ENT recs appreciated - no intervention at this time - bactroban for probable staph infection Resolved: Hypotension- on midodrine Hyperkalemia Metabolic acidosis TERRANCE- resolved Acute hyponatremia DVT prophylaxis: SCDs Discussed with: patient and nursing Anticipated discharge: 1-[address]: home A total of 25 minutes was spent on the care of this complex patient more than 50 % of the time was spent in counseling and care coordination.
[2019-02-04] MEDS: MIDODRINE 5 MG TAB PO SCH ×3 (07:29→16:37)
[2019-02-04] MEDS: PANTOPRAZOLE 40 MG TABLET PO SCH (07:29)
[2019-02-04] MEDS: LACTULOSE 20 GM/30 ML CUP PO SCH ×2 (07:30→22:50)
[2019-02-04] MEDS: MUPIROCIN 2% OINT 22 GM TUBE TOPICAL SCH ×2 (07:30→16:38)
--- NOTE | 2019-02-04 08:41 | P.PN ---
Subjective Patient is seen in follow-up for acute kidney injury on chronic kidney disease. Patient has chronic kidney disease stage III with baseline creatinine in the range of 1.2-1.5. Patient has history of underlying liver cirrhosis. She undergoes weekly paracentesis. Patient was maintained on Lasix at home. She presented to the hospital due to generalized weakness and lethargy. Hemoglobin was 4.6 on admission and she has received 6 units of blood transfusion so far. Hemoglobin 8.0 as of yesterday. Epistaxis has resolved. Sodium level is stable at 127. She is maintained on normal saline at 75 mL an hour. Denies chest pain or shortness of breath. She is nonoliguric. Vital signs are stable. General: The patient appeared well nourished and normally developed. HEENT: Head exam is unremarkable. Neck is without jugular venous distension. LUNGS: Breath sounds decreased. HEART: Rate and Rhythm are regular. First and second heart sounds normal. No murmurs, rubs or gallops. ABDOMEN: Abdominal exam reveals normal bowel sounds. Nontender. EXTREMITITES: Trace edema. Objective - Vital Signs Vital signs: Vital Signs Temp 97.2 F L 02/04/19 06:33 Pulse 65 02/04/19 06:33 Resp 18 02/04/19 06:33 BP 94/57 02/04/19 06:33 Pulse Ox 100 02/04/19 06:33 Intake & Output 02/03/19 02/04/19 02/04/19 18:59 06:59 18:59 Intake Total 600 200 Output Total 160 71 Balance 440 129 Intake: Intake, IV Titration 600 Amount Sodium Chloride 0.9% 1, 600 000 ml @ 75 mls/hr IV . [id number] DOMINIQUE Rx#:[id number] Oral 200 Output: Drainage 160 Right Lower Abdomen 160 Post Void Residual 71 Other: Voiding Method Bedside Commode Bedside Commode Bedside Commode # Voids 2 1 # Bowel Movements 2 2 - Labs CBC & Chem 7: 02/03/19 05:07 02/03/19 05:07 Assessment and Plan Plan: Assessment: 1. Acute kidney injury mostly prerenal secondary to acute anemia and diuresis improving with IV hydration. Creatinine was 2.93 on admission and down to 1.23 as of yesterday. 2. Chronic kidney disease stage III with baseline creatinine in the range of 1.2-1.5. Etiology is hepatorenal syndrome. 3. Acute blood loss anemia status post 6 units of blood transfusion. Hemoglobin 8 as of yesterday. Epistaxis resolved. Status post IV DDAVP on January 31 and . 4. Metabolic acidosis secondary to acute kidney injury. Better. 5. Hyperkalemia secondary to acute kidney injury and metabolic acidosis. Better. 6. History of liver cirrhosis. 7. Hypovolemic hyponatremia improving with IV hydration. Stable. 8. Ascites. Patient undergoes weekly paracentesis. Last paracentesis on January 29 with 5 L drained. 9. Chronic hypotension related to underlying liver cirrhosis maintained on midodrine. 10. UTI. Urine culture positive for E. coli maintained on antibiotics. Plan: Maintain normal saline at 75 mL an hour. 1200 mL fluid restriction. Maintain ensure 3 times daily with meals. Maintain Aranesp. Hold off on diuretics. Follow-up morning labs.
[2019-02-04 11:10] LABS: Anisocytosis Slight; Basophils # (A) 0.1 k/uL (0-0.2); Basophils % (A) 1 %; Eosinophils # (A) 0.2 k/uL (0-0.7); Eosinophils % (A) 4 %; HCT 23.4 % (34.0-46.0); HGB 7.3 gm/dL (11.4-16.0); Hypochromasia Slight; Lymphocytes % (A) 18 %; MCH 27.6 pg (25.0-35.0); MCHC 31.3 g/dL (31.0-37.0); MCV 88.1 fL (80.0-100.0); Mean Platelet Volume 7.2; Monocytes # (A) 0.3 k/uL (0-1.0); Monocytes % (A) 5 %; Neutrophils % (A) 70 %; Platelet Count 145 k/uL (150-450); RBC 2.66 m/uL (3.80-5.40); RDW 17.9 % (11.5-15.5); WBC 5.7 k/uL (3.8-10.6)
[2019-02-04 11:19] LABS: Albumin 2.4 g/dL (3.5-5.0); Calcium 8.1 mg/dL (8.4-10.2); Potassium 3.9 mmol/L (3.5-5.1); Total Bilirubin 2.1 mg/dL (0.2-1.3); Total Protein 4.9 g/dL (6.3-8.2)
[2019-02-04] MEDS: SODIUM CHLORIDE 0.9% 1,000 ML IV SCH (12:08)
--- NOTE | 2019-02-04 17:28 | P.PN ---
Subjective Progress Note Date: 02/04/19 (delayed charting patient seen at 0910) Principal diagnosis: hypotension Patient is a 48-year-old female patient of Dr. Jones with past medical history of alcohol-induced cirrhosis requiring chronic paracentesis, chronic kidney disease stage III, esophageal varices is with banding, gastric bypass, and tobacco abuse who presented to the ER on 01/29 following an episode of paracentesis. She had 5 L of ascitic fluid removed became hypotensive. She had received albumin during the procedure but remained hypotensive. She went to the emergency department for evaluation. In the ER she was noted to have a low sodium of 121, hemoglobin 4.6, potassium 6, BUNs 76, and creatinine 9.3. Urinalysis appeared chronically infected. She was given IV fluids in the ER as well as 2 units of packed red blood cells. She was started on Rocephin for possible UTI. She is admitted to the ICU for further monitoring. Critical care and GI were consulted. Nephrology was also consulted patient was ultimately started on a bicarb drip. She was also started on lactulose. Her hemoglobin remained stable after she received a total of 6 units of packed red blood cells. Patient did receive 1 dose of IV DDAVP which improvement in her sodium. Her creatinine has improved daily. Her mentation also improved. She struggles with being compliant with lactulose. She is till requiring max assist and will need to go to rehab on discharge. Patient seen and examined at bedside. Feeling okay today, no chest pain, SOB, nasuea, or abdominal. Okay with rehab as she realizes that she is not strong enough to go home. Does not want to talk about disease progression as she wants to talk with her GI and family doctor about anticipated outcomes. Objective - Vital Signs Vital signs: Vital Signs Temp 96.1 F L 02/04/19 13:14 Pulse 61 02/04/19 13:14 Resp 16 02/04/19 13:14 BP 94/61 02/04/19 13:14 Pulse Ox 100 02/04/19 13:14 Intake & Output 02/03/19 02/04/19 02/04/19 18:59 06:59 18:59 Intake Total 600 200 Output Total 160 71 Balance 440 129 Intake: Intake, IV Titration 600 Amount Sodium Chloride 0.9% 1, 600 000 ml @ 75 mls/hr IV . [id number] [facility] Rx#:[id number] Oral 200 Output: Drainage 160 Right Lower Abdomen 160 Post Void Residual 71 Other: Voiding Method Bedside Commode Bedside Commode Bedside Commode # Voids 2 1 # Bowel Movements 2 2 - Exam General: non toxic, obese, appears older than stated age, no distress Derm: warm, dry, multiple areas of ecchymoses, stage II pressure ulcer on coccyx. Head: atraumatic, normocephalic, symmetric Eyes: EOMI, no lid lag, anicteric sclera Mouth: no lip lesion, mucus membranes moist Cardiovascular: S1S2 reg, no murmur, positive posterior tibial pulse bilateral, Lungs: decreased breath sounds bilateral bases, no rhonchi, no rales , no accessory muscle use Abdominal: soft, nontender to palpation, no guarding, no appreciable organomegaly Ext: no gross muscle atrophy, 2+ edema, no contractures Neuro: CN II-XI grossly intact, no focal neuro deficits Psych: Alert, oriented, appropriate affect - Labs CBC & Chem 7: 02/04/19 10:44 02/04/19 10:44 Labs: Abnormal Lab Results - Last 24 Hours (Table) 02/04/19 02/04/19 Range/Units 10:44 10:44 RBC 2.66 L (3.80-5.40) m/uL Hgb 7.3 L (11.4-16.0) gm/dL Hct 23.4 L (34.0-46.0) % RDW 17.9 H (11.5-15.5) % Plt Count 145 L (150-450) k/uL Sodium 129 L (137-145) mmol/L BUN 65 H (7-17) mg/dL Creatinine 1.19 H (0.52-1.04) mg/dL Calcium 8.1 L (8.4-10.2) mg/dL Total Bilirubin 2.1 H (0.2-1.3) mg/dL AST 67 H (14-36) U/L Total Protein 4.9 L (6.3-8.2) g/dL Albumin 2.4 L (3.5-5.0) g/dL Assessment and Plan Assessment: Decompensated alcoholic cirrhosis -Will need weekly paracentesis at [facility], has been receiving these, currently appears compensated. Typically has these on Monday will proceed with US to see if enough fluid to TAP as has been draining from prior site. -GI recommendations -Maintain lactulose, not on beta sofie secondary to hypotension Severe anemia -Status post 6 units of packed red blood cells -Would not obtain iron studies at this time secondary to recent transfusions -Iron studies from August 2018 shows severe iron deficiency anemia -Continue Aranesp -will start oral iron therapy. If fails would do IV. - HX of AVM and vericeal bleed. E. Coli UTI, POA - rocephin for a total of 7 days of abx, can transition to orals on d/c, D # 6 will complete tomorrow prior to discharge Thrombocytopenia, improving - chronic and stable - follow CBC Chronic Hyponatremia - stop IVF - avoid additional nephrotoxic agents - follow lytes - Sodium at baseline Tobacco abuse - cessation - nicotine replacement not required at this time due to no withdrawal sx Epistasix, resolved - ENT recs appreciated - no intervention at this time - bactroban for probable staph infection Stage II pressure ulcer coccyx, POA - off loading - barrier cream Resolved: Hypotension- on midodrine Hyperkalemia Metabolic acidosis TERRANCE- resolved Acute hyponatremia DVT prophylaxis: SCDs Discussed with: patient, Dr Lmyan, and nursing Anticipated discharge: Awaiting auth for SNF Anticipated discharge place: SNF A total of 25 minutes was spent on the care of this complex patient more than 50% of the time was spent in counseling and care coordination.
--- NOTE | 2019-02-04 20:19 | US ---
EXAMINATION TYPE: US abdomen limited DATE OF EXAM: 02/04/2019 COMPARISON: NONE CLINICAL HISTORY: assess to see if enough ascities for paracentesis. RUQ, RLQ, LUQ and LLQ scanned. Ascites seen in all four quadrants. IMPRESSION: There is abdominal ascites demonstrated in all of the abdomen.
--- NOTE | 2019-02-04 20:28 | P.PN ---
Subjective Progress Note Date: 02/04/19 Principal diagnosis: Decompensated cirrhosis, ascites Patient seen sitting bedside. Denies any abdominal pain. Tolerating her diet. Denying any signs or symptoms of GI bleeding. Objective - Vital Signs Vital signs: Vital Signs Temp 96.1 F L 02/04/19 13:14 Pulse 61 02/04/19 13:14 Resp 16 02/04/19 13:14 BP 94/61 02/04/19 13:14 Pulse Ox 100 02/04/19 13:14 Intake & Output 02/04/19 02/04/19 02/05/19 06:59 18:59 06:59 Intake Total 200 Output Total 71 Balance 129 Intake: Oral 200 Output: Post Void Residual 71 Other: Voiding Method Bedside Commode Bedside Commode # Voids 1 # Bowel Movements 2 - Exam On physical examination, patient appears comfortable in no apparent distress. HEAD: Normocephalic, atraumatic. EYES: Scleral icterus. No conjunctival injection. MOUTH: No lesions, tongue midline. NECK: Trachea midline, no gross abnormalities. CHEST: Clear to auscultation with no wheezing or rhonchi appreciated. HEART: S1-S2 appreciated. ABDOMEN: Soft, distended with positive fluid wave. Bowel sounds are positive. No organomegaly. No guarding or rigidity. EXTREMITIES: Bilateral pedal edema. SKIN: No rashes, minimal jaundice. NEUROLOGIC: Alert and oriented x3. No focal deficits. No asterixis noted - Labs CBC & Chem 7: 02/04/19 10:44 02/04/19 10:44 Labs: Abnormal Lab Results - Last 24 Hours (Table) 02/04/19 02/04/19 Range/Units 10:44 10:44 RBC 2.66 L (3.80-5.40) m/uL Hgb 7.3 L (11.4-16.0) gm/dL Hct 23.4 L (34.0-46.0) % RDW 17.9 H (11.5-15.5) % Plt Count 145 L (150-450) k/uL Sodium 129 L (137-145) mmol/L BUN 65 H (7-17) mg/dL Creatinine 1.19 H (0.52-1.04) mg/dL Calcium 8.1 L (8.4-10.2) mg/dL Total Bilirubin 2.1 H (0.2-1.3) mg/dL AST 67 H (14-36) U/L Total Protein 4.9 L (6.3-8.2) g/dL Albumin 2.4 L (3.5-5.0) g/dL Assessment and Plan (1) Cirrhosis of liver with ascites Narrative/Plan: 48-year-old female with a known history of decompensated cirrhosis with prior episodes of esophageal bleeding, hepatic encephalopathy and ascites requiring frequent paracentesis Current Visit: Yes Status: Acute Code(s): K74.60 - UNSPECIFIED CIRRHOSIS OF LIVER; R18.8 - OTHER ASCITES SNOMED Code(s): 71451610 (2) Chronic anemia Current Visit: Yes Status: Acute Code(s): D64.9 - ANEMIA, UNSPECIFIED SNOMED Code(s): 563949664 (3) History of esophageal varices Current Visit: Yes Status: Acute Code(s): Z87.19 - PERSONAL HISTORY OF OTHER DISEASES OF THE DIGESTIVE SYSTEM SNOMED Code(s): 14816602152521058 (4) Portal hypertension Current Visit: Yes Status: Acute Code(s): K76.6 - PORTAL HYPERTENSION SNOM ED Code(s): 81322934 Plan: Supportive care Sodium restricted diet Continue Protonix therapy Continue monitor hemoglobin and transfuse as needed Continue twice daily lactulose therapy Appreciate nephrology recommendations, diuretic therapy currently being held Ultrasound abdomen ordered today with paracentesis Thank you for allowing us to participate in the care of the patient we will continue to follow
[2019-02-05] MEDS: MUPIROCIN 2% OINT 22 GM TUBE TOPICAL SCH ×4 (00:27→22:06)
[2019-02-05] MEDS: PANTOPRAZOLE 40 MG TABLET PO SCH (07:24)
[2019-02-05] MEDS: MIDODRINE 5 MG TAB PO SCH ×3 (07:24→16:30)
[2019-02-05] MEDS: LACTULOSE 20 GM/30 ML CUP PO SCH ×3 (07:25→22:10)
[2019-02-05] MEDS ORDERED: ALBUMIN HUMAN 25% 50 ML in EMPTY BAG 1 BAG IVPB SCH (08:00)
--- NOTE | 2019-02-05 10:06 | P.PN ---
Subjective Progress Note Date: 02/05/19 Principal diagnosis: Cirrhosis Paracentesis scheduled today. No complaints. Possible discharge. Objective - Vital Signs Vital signs: Vital Signs Temp 96.9 F L 02/05/19 05:18 Pulse 74 02/05/19 05:18 Resp 17 02/05/19 05:18 BP 89/60 02/05/19 05:18 Pulse Ox 100 02/05/19 05:18 Intake & Output 02/04/19 02/05/19 02/05/19 18:59 06:59 18:59 Other: Voiding Method Bedside Commode # Voids 1 - Exam General appearance: The patient is alert, oriented, in no acute distress. Cachectic appearance appears weak. HET: Head is normocephalic and atraumatic. Pupils are equal and reactive. Oropharynx is clear without lesions. Scattered facial telangiectasias. Neck: Supple without lymphadenopathy. Trachea midline. Heart: S1 S2. Regular rate and rhythm. Lungs: No crackles or wheezes are heard. Abdomen: Paracentesis site with dressing no active leakage. No erythema. Mildly distended mildly tense with ascites. Bowel sounds present. No peritoneal signs. No palpable organomegaly or masses. Extremities: No asterisks. Poor skin turgor. Neurological: No focal deficits. Strength and sensation are grossly intact. - Labs CBC & Chem 7: 02/04/19 10:44 02/04/19 10:44 Labs: Abnormal Lab Results - Last 24 Hours (Table) 02/04/19 02/04/19 Range/Units 10:44 10:44 RBC 2.66 L (3.80-5.40) m/uL Hgb 7.3 L (11.4-16.0) gm/dL Hct 23.4 L (34.0-46.0) % RDW 17.9 H (11.5-15.5) % Plt Count 145 L (150-450) k/uL Sodium 129 L (137-145) mmol/L BUN 65 H (7-17) mg/dL Creatinine 1.19 H (0.52-1.04) mg/dL Calcium 8.1 L (8.4-10.2) mg/dL Total Bilirubin 2.1 H (0.2-1.3) mg/dL AST 67 H (14-36) U/L Total Protein 4.9 L (6.3-8.2) g/dL Albumin 2.4 L (3.5-5.0) g/dL Assessment and Plan (1) Cirrhosis of liver with ascites Current Visit: Yes Status: Acute Code(s): K74.60 - UNSPECIFIED CIRRHOSIS OF LIVER; R18.8 - OTHER ASCITES SNOMED Code(s): 21317569 (2) Hypotension Current Visit: Yes Status: Acute Code(s): I95.9 - HYPOTENSION, UNSPECIFIED SNOMED Code(s): 32455886 (3) Chronic anemia Current Visit: Yes Status: Acute Code(s): D64.9 - ANEMIA, UNSPECIFIED SNOMED Code(s): 246488814 (4) History of ETOH abuse Current Visit: Yes Status: Acute Code(s): F10.11 - ALCOHOL ABUSE, IN REMISSION SNOMED Code(s): 019869464 (5) Hyponatremia Current Visit: Yes Status: Acute Code(s): E87.1 - HYPO-OSMOLALITY AND HYPONATREMIA SNOMED Code(s): 25834943 (6) Coagulopathy Current Visit: Yes Status: Acute Code(s): D68.9 - COAGULATION DEFECT, UNSPECIFIED SNOMED Code(s): 61153211 (7) History of Willie-en-Y gastric bypass Current Visit: No Status: Resolved Code(s): Z98.84 - BARIATRIC SURGERY STATUS SNOMED Code(s): 743694241 (8) Portal hypertension Current Visit: Yes Status: Acute Code(s): K76.6 - PORTAL HYPERTENSION SNOMED Code(s): 96455693 (9) History of esophageal varices Current Visit: Yes Status: Acute Code(s): Z87.19 - PERSONAL HISTORY OF OTHER DISEASES OF THE DIGESTIVE SYSTEM SNOMED Code(s): 94440099982970323 (10) UTI (urinary tract infection) Current Visit: Yes Status: Acute Code(s): N39.0 - URINARY TRACT INFECTION, SITE NOT SPECIFIED SNOMED Code(s): 44502595 (11) Epistaxis Current Visit: Yes Status: Acute Code(s): R04.0 - EPISTAXIS SNOMED Code(s): 945141461 Plan: 1. Paracentesis today. Discharge planning. Continue present medical therapy. Assessment plan a care discussed with Dr. Carmona
[2019-02-05 10:09] LABS: Anisocytosis Slight; Basophils % (A) 0 %; Eosinophils # (A) 0.2 k/uL (0-0.7); Eosinophils % (A) 5 %; HCT 21.3 % (34.0-46.0); Hypochromasia Slight; Lymphocytes # (A) 0.7 k/uL (1.0-4.8); Lymphocytes % (A) 15 %; MCH 27.7 pg (25.0-35.0); MCV 89.2 fL (80.0-100.0); Mean Platelet Volume 7.1; Monocytes # (A) 0.2 k/uL (0-1.0); Monocytes % (A) 5 %; Neutrophils # (A) 3.4 k/uL (1.3-7.7); Neutrophils % (A) 74 %; Platelet Count 112 k/uL (150-450); RBC 2.39 m/uL (3.80-5.40); RDW 18.5 % (11.5-15.5); WBC 4.6 k/uL (3.8-10.6)
[2019-02-05 10:12] LABS: HGB 6.6 gm/dL (11.4-16.0)
[2019-02-05 10:26] LABS: INR 1.2 (<1.2); Prothrombin Time 12.8 sec (9.0-12.0)
[2019-02-05 10:30] LABS: Albumin 2.1 g/dL (3.5-5.0); Magnesium 2.4 mg/dL (1.6-2.3); Potassium 3.7 mmol/L (3.5-5.1); Total Bilirubin 1.7 mg/dL (0.2-1.3); Total Protein 4.6 g/dL (6.3-8.2)
[2019-02-05] MEDS ORDERED: FUROSEMIDE 10 MG/ML 4 ML VIAL IV STA (11:19)
--- NOTE | 2019-02-05 11:20 | P.PN ---
Subjective Patient is seen in follow-up for acute kidney injury on chronic kidney disease. Patient has chronic kidney disease stage III with baseline creatinine in the range of 1.2-1.5. Patient has history of underlying liver cirrhosis. She undergoes weekly paracentesis. Patient was maintained on Lasix at home. She presented to the hospital due to generalized weakness and lethargy. Hemoglobin was 4.6 on admission and she has received 6 units of blood transfusion so far. Hemoglobin 6.6 today. Sodium level is stable at 129. She is maintained on no rmal saline at 75 mL an hour. Denies chest pain or shortness of breath. She is nonoliguric. Scheduled for paracentesis today. Vital signs are stable. General: The patient appeared well nourished and normally developed. HEENT: Head exam is unremarkable. Neck is without jugular venous distension. LUNGS: Breath sounds decreased. HEART: Rate and Rhythm are regular. First and second heart sounds normal. No murmurs, rubs or gallops. ABDOMEN: Abdominal exam reveals normal bowel sounds. Nontender. Distention noted. EXTREMITITES: 1+ edema. Objective - Vital Signs Vital signs: Vital Signs Temp 96.9 F L 02/05/19 05:18 Pulse 74 02/05/19 05:18 Resp 17 02/05/19 05:18 BP 89/60 02/05/19 05:18 Pulse Ox 100 02/05/19 05:18 Intake & Output 02/04/19 02/05/19 02/05/19 18:59 06:59 18:59 Other: Voiding Method Bedside Commode # Voids 1 - Labs CBC & Chem 7: 02/05/19 09:37 02/05/19 09:37 Labs: Abnormal Lab Results - Last 24 Hours (Table) 02/04/19 02/05/19 02/05/19 Range/Units 10:44 09:37 09:37 RBC 2.39 L (3.80-5.40) m/uL Hgb 6.6 L* (11.4-16.0) gm/dL Hct 21.3 L (34.0-46.0) % RDW 18.5 H (11.5-15.5) % Plt Count 112 L (150-450) k/uL Lymphocytes # 0.7 L (1.0-4.8) k/uL PT (9.0-12.0) sec INR (<1.2) Sodium 129 L 129 L (137-145) mmol/L BUN 65 H 58 H (7-17) mg/dL Creatinine 1.19 H 1.11 H (0.52-1.04) mg/dL Calcium 8.1 L 8.0 L (8.4-10.2) mg/dL Magnesium 2.4 H (1.6-2.3) mg/dL Total Bilirubin 2.1 H 1.7 H (0.2-1.3) mg/dL AST 67 H 66 H (14-36) U/L Total Protein 4.9 L 4.6 L (6.3-8.2) g/dL Albumin 2.4 L 2.1 L (3.5-5.0) g/dL 02/05/19 Range/Units 09:37 RBC (3.80-5.40) m/uL Hgb (11.4-16.0) gm/dL Hct (34.0-46.0) % RDW (11.5-15.5) % Plt Count (150-450) k/uL Lymphocytes # (1.0-4.8) k/uL PT 12.8 H (9.0-12.0) sec INR 1.2 H (<1.2) Sodium (137-145) mmol/L BUN (7-17) mg/dL Creatinine (0.52-1.04) mg/dL Calcium (8.4-10.2) mg/dL Magnesium (1.6-2.3) mg/dL Total Bilirubin (0.2-1.3) mg/dL AST (14-36) U/L Total Protein (6.3-8.2) g/dL Albumin (3.5-5.0) g/dL Assessment and Plan Plan: Assessment: 1. Acute kidney injury mostly prerenal secondary to acute anemia and diuresis improving with IV hydration. Creatinine was 2.93 on admission and down to 1.11 today. 2. Chronic kidney disease stage III with baseline creatinine in the range of 1.2-1.5. Etiology is hepatorenal syndrome. 3. Acute blood loss anemia status post 6 units of blood transfusion. Hemog lobin 6.6 today. Epistaxis resolved. Status post IV DDAVP on January 31 and . 4. Metabolic acidosis secondary to acute kidney injury. Better. 5. Hyperkalemia secondary to acute kidney injury and metabolic acidosis. Better. 6. History of liver cirrhosis. 7. Hypovolemic hyponatremia improving with IV hydration. Now hypervolemic. 8. Ascites. Patient undergoes weekly paracentesis. Last paracentesis on January 29 with 5 L drained. Scheduled for paracentesis today. 9. Chronic hypotension related to underlying liver cirrhosis maintained on midodrine. 10. UTI. Urine culture positive for E. coli maintained on antibiotics. Plan: Hep-Lock IV fluids. 1200 mL fluid restriction. Maintain ensure 3 times daily with meals. Maintain Aranesp. Scheduled to receive 1 unit of blood transfusion today. Resume Aldactone. Lasix 40 mg IV once today. She is to get 25 g of albumin pre-and post paracentesis. An additional 25 g to be given if more than 8 L removed.
[2019-02-05] MEDS: SPIRONOLACTONE 25 MG TAB PO SCH ×2 (11:48→22:06)
--- NOTE | 2019-02-05 18:20 | P.PN ---
Subjective Progress Note Date: 02/05/19 (delayed charting patient seen at 0910) Principal diagnosis: hypotension Patient is a 48-year-old female patient of Dr. Jones with past medical history of alcohol-induced cirrhosis requiring chronic paracentesis, chronic kidney disease stage III, esophageal varices is with banding, gastric bypass, and tobacco abuse who presented to the ER on 01/29 following an episode of paracentesis. She had 5 L of ascitic fluid removed became hypotensive. She had received albumin during the procedure but remained hypotensive. She went to the emergency department for evaluation. In the ER she was noted to have a low sodium of 121, hemoglobin 4.6, potassium 6, BUNs 76, and creatinine 9.3. Urinalysis appeared chronically infected. She was given IV fluids in the ER as well as 2 units of packed red blood cells. She was started on Rocephin for possible UTI. She is admitted to the ICU for further monitoring. Critical care and GI were consulted. Nephrology was also consulted patient was ultimately started on a bicarb drip. She was also started on lactulose. Her hemoglobin remained stable after she received a total of 6 units of packed red blood cells. Patient did receive 1 dose of IV DDAVP which improvement in her sodium. Her creatinine has improved daily. Her mentation also improved. She struggles with being compliant with lactulose. Her blood count dropped on 02/05 and she was orderd an additional unit or pRBC. Her ascities increased on 02/05 and paracente sis was ordered but held due to low blood count. She is till requiring max assist and will need to go to rehab on discharge. Patient seen and examined at bedside. Feeling tired and sleepy, + abdominal distension, no nausea, no vomiting, no diarrhea, still wont take lactulose. Objective - Vital Signs Vital signs: Vital Signs Temp 97.6 F 02/05/19 16:23 Pulse 59 L 02/05/19 16:23 Resp 18 02/05/19 16:23 BP 93/60 02/05/19 16:23 Pulse Ox 100 02/05/19 14:09 Intake & Output 02/04/19 02/05/19 02/05/19 18:59 06:59 18:59 Intake Total 310 Balance 310 Weight 107 kg Intake: Blood Product 310 Rc As-3 Unit 310 [id number] Other: Voiding Method Bedside Commode # Voids 1 - Exam General: non toxic, obese, appears older than stated age, no distress Derm: warm, dry, multiple areas of ecchymoses Head: atraumatic, normocephalic, symmetric Eyes: EOMI, no lid lag, anicteric sclera Mouth: no lip lesion, mucus membranes moist Cardiovascular: S1S2 reg, no murmur, positive posterior tibial pulse bilateral, Lungs: crackels bilateral bases, no rhonchi, no rales , no accessory muscle use Abdominal: soft, nontender to palpation, no guarding, no appreciable organomegaly, + distended with fluid wave Ext: no gross muscle atrophy, 2+ edema, no contractures Neuro: CN II-XI grossly intact, no focal neuro deficits Psych: Alert, oriented, appropriate affect - Labs CBC & Chem 7: 02/05/19 09:37 02/05/19 09:37 Labs: Abnormal Lab Results - Last 24 Hours (Table) 02/05/19 02/05/19 02/05/19 Range/Units 09:37 09:37 09:37 RBC 2.39 L (3.80-5.40) m/uL Hgb 6.6 L* (11.4-16.0) gm/dL Hct 21.3 L (34.0-46.0) % RDW 18.5 H (11.5-15.5) % Plt Count 112 L (150-450) k/uL Lymphocytes # 0.7 L (1.0-4.8) k/uL PT 12.8 H (9.0-12.0) sec INR 1.2 H (<1.2) Sodium 129 L (137-145) mmol/L BUN 58 H (7-17) mg/dL Creatinine 1.11 H (0.52-1.04) mg/dL Calcium 8.0 L (8.4-10.2) mg/dL Magnesium 2.4 H (1.6-2.3) mg/dL Total Bilirubin 1.7 H (0.2-1.3) mg/dL AST 66 H (14-36) U/L Total Protein 4.6 L (6.3-8.2) g/dL Albumin 2.1 L (3.5-5.0) g/dL Crossmatch 02/05/19 Range/Units 10:43 RBC (3.80-5.40) m/uL Hgb (11.4-16.0) gm/dL Hct (34.0-46.0) % RDW (11.5-15.5) % Plt Count (150-450) k/uL Lymphocytes # (1.0-4.8) k/uL PT (9.0-12.0) sec INR (<1.2) Sodium (137-145) mmol/L BUN (7-17) mg/dL Creatinine (0.52-1.04) mg/dL Calcium (8.4-10.2) mg/dL Magnesium (1.6-2.3) mg/dL Total Bilirubin (0.2-1.3) mg/dL AST (14-36) U/L Total Protein (6.3-8.2) g/dL Albumin (3.5-5.0) g/dL Crossmatch See Detail Assessment and Plan Assessment: Decompensated alcoholic cirrhosis -Will need weekly paracentesis at [facility], has been receiving these, currently appears compensated. - Paracentesis held today secondary to low blood count -GI recommendations - Per nephro lasix today and aldactone -Maintain lactulose, not on beta sofie secondary to hypotension -Patient is refusing lactulose will try adding Xifaxan. Severe anemia -Status post 6 units of packed red blood cells, 1 additional unit today, no signs of active bleeding -Would not obtain iron studies at this time secondary to recent transfusions -Iron studies from August 2018 shows severe iron deficiency anemia -Continue Aranesp - oral iron therapy. If fails would do IV. - HX of AVM and vericeal bleed. E. Coli UTI, POA - rocephin for a total of 7 days of abx, can transition to orals on d/c, D #7, d/c -Thrombocytopenia - chronic and stable - follow CBC Chronic Hyponatremia - off IVF, lasi and aldactone started - avoid additional nephrotoxic agents - follow lytes - Sodium at baseline Tobacco abuse - cessation - nicotine replacement not required at this time due to no withdrawal sx Epistasix, resolved - ENT recs appreciated - no intervention at this time - bactroban for probable staph infection Stage II pressure ulcer coccyx, POA - off loading - barrier cream CKD III -monitor renal function Resolved: Hypotension- on midodrine Hyperkalemia Metabolic acidosis TERRANCE- resolved Acute hyponatremia DVT prophylaxis: SCDs Discussed with: patient, Dr Lyman, and nursing Anticipated discharge: in AM if HgB stable Anticipated discharge place: SNF A total of 25 minutes was spent on the care of this complex patient more than 50% of the time was spent in counseling and care coordination.
[2019-02-05 20:31] LABS: Anisocytosis Slight; Basophils % (A) 0 %; Eosinophils # (A) 0.2 k/uL (0-0.7); Eosinophils % (A) 3 %; HCT 25.1 % (34.0-46.0); HGB 7.8 gm/dL (11.4-16.0); Lymphocytes % (A) 14 %; MCH 27.2 pg (25.0-35.0); MCHC 30.9 g/dL (31.0-37.0); Mean Platelet Volume 7.3; Monocytes # (A) 0.3 k/uL (0-1.0); Monocytes % (A) 4 %; Neutrophils # (A) 5.5 k/uL (1.3-7.7); Neutrophils % (A) 78 %; Platelet Count 117 k/uL (150-450); RBC 2.85 m/uL (3.80-5.40); RDW 18.4 % (11.5-15.5)
[2019-02-05] MEDS: RIFAXIMIN 550 MG TABLET PO SCH (22:06)
[2019-02-06] MEDS: PANTOPRAZOLE 40 MG TABLET PO SCH ×2 (07:50→07:51)
[2019-02-06] MEDS: MIDODRINE 5 MG TAB PO SCH ×3 (07:51→16:12)
[2019-02-06] MEDS: RIFAXIMIN 550 MG TABLET PO SCH (07:51)
[2019-02-06] MEDS: FERROUS SULFATE 325 MG TAB PO SCH ×2 (07:51→16:12)
[2019-02-06] MEDS: LACTULOSE 20 GM/30 ML CUP PO SCH ×2 (07:51→07:54)
[2019-02-06] MEDS: MUPIROCIN 2% OINT 22 GM TUBE TOPICAL SCH ×2 (07:53→16:12)
[2019-02-06] MEDS: SPIRONOLACTONE 25 MG TAB PO SCH (07:53)
[2019-02-06 09:40] LABS: Anisocytosis Slight; Basophils # (A) 0.1 k/uL (0-0.2); Basophils % (A) 1 %; Eosinophils # (A) 0.3 k/uL (0-0.7); Eosinophils % (A) 3 %; Hypochromasia Slight; Lymphocytes # (A) 1.4 k/uL (1.0-4.8); Lymphocytes % (A) 14 %; MCH 27.5 pg (25.0-35.0); MCHC 30.9 g/dL (31.0-37.0); Mean Platelet Volume 7.8; Monocytes # (A) 0.4 k/uL (0-1.0); Monocytes % (A) 4 %; Neutrophils # (A) 7.9 k/uL (1.3-7.7); Neutrophils % (A) 78 %; Platelet Count 139 k/uL (150-450); RBC 2.92 m/uL (3.80-5.40); RDW 18.4 % (11.5-15.5); WBC 10.1 k/uL (3.8-10.6)
[2019-02-06 09:42] LABS: Albumin 2.3 g/dL (3.5-5.0); Magnesium 2.3 mg/dL (1.6-2.3); Potassium 3.6 mmol/L (3.5-5.1); Total Bilirubin 1.8 mg/dL (0.2-1.3); Total Protein 4.8 g/dL (6.3-8.2)
--- NOTE | 2019-02-06 10:43 | P.PN ---
Subjective Patient is seen in follow-up for acute kidney injury on chronic kidney disease. Patient has chronic kidney disease stage III with baseline creatinine in the range of 1.2-1.5. Patient has history of underlying liver cirrhosis. She undergoes weekly paracentesis. Patient was maintained on Lasix at home. She presented to the hospital due to generalized weakness and lethargy. Hemoglobin was 4.6 on admission and she has received multiple units of blood transfusion so far. Hemoglobin 8 today. Sodium level is stable at 129. Denies chest pain or shortness of breath. She is nonoliguric. Scheduled for paracentesis today. Renal function continues to improve. Vital signs are stable. General: The patient appeared well nourished and normally developed. HEENT: Head exam is unremarkable. Neck is without jugular venous distension. LUNGS: Breath sounds decreased. HEART: Rate and Rhythm are regular. First and second heart sounds normal. No m urmurs, rubs or gallops. ABDOMEN: Abdominal exam reveals normal bowel sounds. Nontender. Distention noted. EXTREMITITES: 1+ edema. Objective - Vital Signs Vital signs: Vital Signs Temp 96.9 F L 02/06/19 05:12 Pulse 70 02/06/19 05:12 Resp 17 02/06/19 05:12 BP 101/57 02/06/19 05:12 Pulse Ox 100 02/06/19 05:12 Intake & Output 02/05/19 02/06/19 02/06/19 18:59 06:59 18:59 Intake Total 310 Balance 310 Weight 107 kg Intake: Blood Product 310 Rc As-3 Unit 310 [id number] Other: # Voids 1 - Labs CBC & Chem 7: 02/06/19 08:30 02/06/19 08:30 Labs: Abnormal Lab Results - Last 24 Hours (Table) 02/05/19 02/05/19 02/06/19 Range/Units 10:43 19:55 08:30 RBC 2.85 L 2.92 L (3.80-5.40) m/uL Hgb 7.8 L 8.0 L (11.4-16.0) gm/dL Hct 25.1 L 26.0 L (34.0-46.0) % MCHC 30.9 L 30.9 L (31.0-37.0) g/dL RDW 18.4 H 18.4 H (11.5-15.5) % Plt Count 117 L 139 L (150-450) k/uL Neutrophils # 7.9 H (1.3-7.7) k/uL Sodium (137-145) mmol/L BUN (7-17) mg/dL Creatinine (0.52-1.04) mg/dL Calcium (8.4-10.2) mg/dL Total Bilirubin (0.2-1.3) mg/dL AST (14-36) U/L Total Protein (6.3-8.2) g/dL Albumin (3.5-5.0) g/dL Crossmatch See Detail 02/06/19 Range/Units 08:30 RBC (3.80-5.40) m/uL Hgb (11.4-16.0) gm/dL Hct (34.0-46.0) % MCHC (31.0-37.0) g/dL RDW (11.5-15.5) % Plt Count (150-450) k/uL Neutrophils # (1.3-7.7) k/uL Sodium 129 L (137-145) mmol/L BUN 55 H (7-17) mg/dL Creatinine 1.17 H (0.52-1.04) mg/dL Calcium 8.0 L (8.4-10.2) mg/dL Total Bilirubin 1.8 H (0.2-1.3) mg/dL AST 69 H (14-36) U/L Total Protein 4.8 L (6.3-8.2) g/dL Albumin 2.3 L (3.5-5.0) g/dL Crossmatch Assessment and Plan Plan: Assessment: 1. Acute kidney injury mostly prerenal secondary to acute anemia and diuresis improving with IV hydration. Creatinine was 2.93 on admission and is stable at 1.17 today. 2. Chronic kidney disease stage III with baseline creatinine in the range of 1.2-1.5. Etiology is hepatorenal syndrome. 3. Acute blood loss anemia status post 6 units of blood transfusion. Hemoglobin 8 today. Epistaxis resolved. Status post IV DDAVP on January 31 and . 4. Metabolic acidosis secondary to acute kidney injury. Better. 5. Hyperkalemia secondary to acute kidney injury and metabolic acidosis. Better. Now slightly hypokalemic from diuretics. 6. History of liver cirrhosis. 7. Hypovolemic hyponatremia improving with IV hydration. Now hypervolemic. 8. Ascites. Patient undergoes weekly paracentesis. Last paracentesis on January 29 with 5 L drained. Scheduled for paracentesis today. 9. Chronic hypotension related to underlying liver cirrhosis maintained on midodrine. 10. UTI. Urine culture positive for E. coli maintained on antibiotics. Plan: Remains off IV fluids. 1200 mL fluid restriction. Maintain ensure 3 times daily with meals. Maintain Aranesp. Increase dose of Aldactone to 50 minute grams twice daily. Start Lasix 40 mg orally twice daily. She is to get 25 g of albumin pre-and post paracentesis. An additional 25 g to be given if more than 8 L removed.
--- NOTE | 2019-02-06 10:52 | P.PN ---
Progress Note - Text Progress Note Date: 02/06/19 Advanced Care Planning: Diagnoses: Cirrhosis requiring frequent paracentesis, and progressing Background : Patient has not wanted to discuss goal of care. She has wanted to remain full code. Discussion: Person(s) present and participating in discussion: Cody Yeip Summary: Patient asking what to expect going forward. She states that her weakness has gotten progressively worse over the last 2 months. 2 months ago she was able to ambulate on her own and do most things, and now she is dependent in all activities of daily living. We had a juancho discussion that I anticipate her to continue to decline from her end-stage cirrhosis. We discussed that she likely will end up with multiple repeat hospitalizations. She states that this hasn't been a great stress on her family, including her 17-year-old son who is currently in his sophomore year of high school. She states he has been dealing with it better recently. We talked about the fact that it would be pertinent for her to establish an advance directive. And for her to start thinking about if she would want things such as life support, vasopressive agent, dialysis, and feeding tubes. She currently lives with her boyfriend, they are not legally and her son is under the age of 18. We discussed that her mother would be the person look to further decisions. I suggested that she could appoint her boyfriend has her [employer] if she was so inclined. I also encouraged her to have a juancho discussion with her boyfriend and her mother about if she would want things such as CPR or ventilator. She is not yet ready to change her CODE STATUS but indicated that she would not want to be on vent. A total of 21 minutes of face to face time was spent discussing advanced care planning.
[2019-02-06 14:17] VITALS: TEMP 97.6
[2019-02-06] MEDS: ALBUMIN HUMAN 25% 50 ML in EMPTY BAG 1 BAG IVPB SCH ×4 (14:30→15:15)
--- NOTE | 2019-02-06 15:21 | P.DS ---
Providers Date of admission: 01/29/19 16:48 Expected date of discharge: 02/06/19 Attending physician: Louie Herrera MD Consults: 01/29/19 16:47 Consult Physician Urgent Consulting Provider: Tracey Hanley Consult Reason/Comments: Renal insufficiency Do you want consulting provider notified?: Yes 01/29/19 17:06 Consult Physician Urgent Consulting Provider: Chilo Kimball Consult Reason/Comments: ICU MANAGMENT Do you want consulting provider notified?: Already Contacted 02/01/19 12:20 Consult Physician Urgent Consulting Provider: Rob Tellez Consult Reason/Comments: Epistaxis Do you want consulting provider notified?: Yes Primary care physician: Stated None Hospital Course: Discharge Diagnosis: Decompensated alcoholic cirrhosis Severe anemia E. Coli UTI, POA Thrombocytopenia Chronic Hyponatremia Tobacco abuse Epistasix, resolved Stage II pressure ulcer coccyx, POA CKD III Chronic Hypotension- on midodrine Hyperkalemia Metabolic acidosis TERRANCE- resolved Acute hyponatremia Hospital Course: Patient is a 48-year-old female patient of Dr. Jones with past medical history of alcohol-induced cirrhosis requiring chronic paracentesis, chronic kidney disease stage III, esophageal varices s/p banding, gastric bypass, and tobacco abuse who presented to the ER on 01/29 following an episode of paracentesis. She had 5 L of ascitic fluid removed became hypotensive. She had received albumin during the procedure but remained hypotensive. She went to the emergency department for evaluation. In the ER she was noted to have a low sodium of 121, hemoglobin 4.6, potassium 6, BUN 76, and creatinine 2.93. Urinalysis appeared infected. She was given IV fluids in the ER as well as 2 units of packed red blood cells. She was started on Rocephin for possible UTI. She was admitted to the ICU for further monitoring. Critical care and GI were consulted. Nephrology was also consulted patient was ultimately started on a bicarb drip. She was also started on lactulose. Her hemoglobin remained stable after she received a total of 6 units of packed red blood cells. Patient did receive 1 dose of IV DDAVP which had improvement in her sodium. Her creatinine has improved daily. Her mentation also improved. She struggles with being compliant with lactulose. Lab work reviewed from earlier this year and ferritin 12.8 stared on oral iron may need IV with hx of gastric bypass. Her blood count dropped on 02/05 and she was ordered an additional unit or pRBC. Her ascities increased on 02/05 and on 02/06 she underwent paracentesis. She is till requiring max assist and will need to go to rehab on discharge. She is thinking about code status after a long discussion about her current state of health. Her renal function, HgB, and Sodium are at baseline on discharge. High risk for readmission. [facility]: CBC, BMP level once weekly, next in 2-3 days DX: Anemia, thrombocytopenia, CKD III, Hyponatremia Gets Paracentesis weekly on Tuesdays, Gets Albumin 50 Grams prior and needs her Midodrine dose prior. Repeat Ferritin in 4 weeks. DX: Fe deficiency anemia Patient seen and examined at bedside. Feeling better today, no nausea, appeitite good, increased edema, no SOB, feeling slightly stronger. Vital signs reviewed and stable. General: non toxic, no distress, appears older than stated age Derm: multiple areas of ecchymosis in various stages of healing, pressure ulcer on coccyx, warm, dry Head: atraumatic, normocephalic, symmetric Eyes: EOMI, no lid lag, anicteric sclera Mouth: no lip lesion, mucus membranes moist Cardiovascular: S1S2 reg, no murmur, positive posterior tibial pulse bilateral, Lungs: decreased bs bilateral , no accessory muscle use Abdominal:+ distended soft, nontender to palpation, no guarding, no appreciable organomegaly Ext: no gross muscle atrophy, no edema, no contractures Neuro: CN II-XI grossly intact, no focal neuro deficits Psych: Alert, oriented, appropriate affect A total of 35 minutes of time were spent preparing this complex discharge summary . Pertinent Studies: ABD US- Ascitic fluid Patient Condition at Discharge: Fair Plan - Discharge Summary Discharge Rx Participant: Yes New Discharge Prescriptions: New Spironolactone [Aldactone] 50 mg PO BID tab Darbepoetin Sandor [Aranesp] 40 mcg SQ Q7D syringe Lactulose [Cephulac] 30 gm PO BID ml Ferrous Sulfate [Iron (65 MG Elemental)] 325 mg PO BID-W/MEALS tab Furosemide [Lasix] 40 mg PO BID@0900,1600 tab Midodrine [ProAmatine] 10 mg PO AC-TID tab Rifaximin [Xifaxan] 550 mg PO BID tablet Continue ALPRAZolam [Xanax] 0.5 mg PO Q8HR PRN PRN Reason: Anxiety Pantoprazole [Protonix] 40 mg PO AC-BRKFST #30 tablet. Gabapentin [Neurontin] 100 mg PO TID PRN PRN Reason: Pain Discharge Medication List ALPRAZolam [Xanax] 0.5 mg PO Q8HR PRN 11/06/18 [History] Pantoprazole [Protonix] 40 mg PO AC-BRKFST #30 tablet. 01/03/19 [Rx] Gabapentin [Neurontin] 100 mg PO TID PRN 01/29/19 [History] Darbepoetin Sandor [Aranesp] 40 mcg SQ Q7D syringe 02/06/19 [Rx] Ferrous Sulfate [Iron (65 MG Elemental)] 325 mg PO BID-W/MEALS tab 02/06/19 [Rx] Furosemide [Lasix] 40 mg PO BID@0900,1600 tab 02/06/19 [Rx] Lactulose [Cephulac] 30 gm PO BID ml 02/06/19 [Rx] Midodrine [ProAmatine] 10 mg PO AC-TID tab 02/06/19 [Rx] Rifaximin [Xifaxan] 550 mg PO BID tablet 02/06/19 [Rx] Spironolactone [Aldactone] 50 mg PO BID tab 02/06/19 [Rx] Follow up Appointment(s)/Referral(s): Kishan Devine MD [STAFF PHYSICIAN] - 2 Weeks Srinivas Jones DO [Doctor of Osteopathic Medicine] - 1-2 days Uriel Lyman DO [STAFF PHYSICIAN] - 1 Week Activity/Diet/Wound Care/Special Instructions: 2 gram sodium diet, 1200 liter fluid restriction Activity as tolerated Fall precautions Frequent turns CBC, BMP level once weekly, next in 2-3 days DX: Anemia, thrombocytopenia, CKD III, Hyponatremia Baseline sodium 127-129, Baseline HgB 7.5
[2019-02-06 15:51] VITALS: RESP 14
[2019-02-06] MEDS ORDERED: FUROSEMIDE 40 MG TAB PO SCH (16:00)
--- NOTE | 2019-02-06 17:04 | US ---
Therapeutic paracentesis. DATE OF EXAM: 02/06/2019 CLINICAL HISTORY: Ascites The procedure was discussed with the patient. The risks, complications, benefits, and alternatives we re discussed and any questions were answered. Informed consent was obtained. The patient was placed s upine on the ultrasound table and prepped and draped in the usual sterile fashion. All elements of maximal barrier technique were utilized. Under ultrasound guidance, access into the left lower quadrant was obtained, via the paracentesis catheter system and direct ultrasound guidance . Approximately 6.7 liters of straw-colored fluid was removed. The patient was stable throughout the pr ocedure and remained stable upon discharge from Department of Radiology. IMPRESSION: Successful therapeutic paracentesis under ultrasound guidance.
[2019-02-06 17:32] VITALS: BP 95/60; PULSE 69
[2019-02-06] MEDS ORDERED: SPIRONOLACTONE 25 MG TAB PO SCH (21:00)
[2019-02-07] MEDS ORDERED: ALBUMIN HUMAN 25% 50 ML in EMPTY BAG 1 BAG IVPB SCH (08:00)
== END 2019-02-06 17:59 | DRG 432 ==
LOC: EC 15:08 → 2SICU 16:48 → 3NMEDONC 01-31 18:24 → 2SICU 02-01 13:10 → 4MS4W 02-03 19:53
PROVIDERS: ADMIT Family Medicine; ATTEND Family Medicine
PROC: 30233N1 Transfusion of Nonautologous Red Blood Cells into Peripheral Vein, Percutaneous Approach (ICD-10-PCS; 2019-01-29)
PROC: 0W9G3ZZ Drainage of Peritoneal Cavity, Percutaneous Approach (ICD-10-PCS; principal; 2019-02-06)
DX: K70.31 Alcoholic cirrhosis of liver with ascites (principal); K76.7 Hepatorenal syndrome; D62 Acute posthemorrhagic anemia; D68.9 Coagulation defect, unspecified; E87.1 Hypo-osmolality and hyponatremia; E87.2 Acidosis; K76.6 Portal hypertension; N17.9 Acute kidney failure, unspecified; N39.0 Urinary tract infection, site not specified; B95.8 Unspecified staphylococcus as the cause of diseases classified elsewhere; B96.20 Unspecified Escherichia coli [E. coli] as the cause of diseases classified elsewhere; D50.9 Iron deficiency anemia, unspecified; D63.8 Anemia in other chronic diseases classified elsewhere; D69.59 Other secondary thrombocytopenia; E11.22 Type 2 diabetes mellitus with diabetic chronic kidney disease; E11.42 Type 2 diabetes mellitus with diabetic polyneuropathy; E66.9 Obesity, unspecified; E83.39 Other disorders of phosphorus metabolism; E86.1 Hypovolemia; E87.5 Hyperkalemia; E87.6 Hypokalemia; T50.2X5A Adverse effect of carbonic-anhydrase inhibitors, benzothiadiazides and other diuretics, initial encounter; E87.70 Fluid overload, unspecified; F10.21 Alcohol dependence, in remission; F17.210 Nicotine dependence, cigarettes, uncomplicated; F41.9 Anxiety disorder, unspecified; I95.89 Other hypotension; K70.40 Alcoholic hepatic failure without coma; L89.152 Pressure ulcer of sacral region, stage 2; N18.3 Chronic kidney disease, stage 3 (moderate); R04.0 Epistaxis; Z68.35 Body mass index [BMI] 35.0-35.9, adult; Z79.899 Other long term (current) drug therapy; Z82.49 Family history of ischemic heart disease and other diseases of the circulatory system; Z82.5 Family history of asthma and other chronic lower respiratory diseases; Z83.3 Family history of diabetes mellitus; Z98.84 Bariatric surgery status; Z87.19 Personal history of other diseases of the digestive system
CPT/HCPCS: 36415; 49083; 71045; 71046; 76705; 80048; 80053; 81001; 82140; 82272; 82533; 83605; 83735; 83935; 84100; 84484; 85025; 85610; 85730; 86850; 86900; 86901; 86920; 87077; 87086; 87186; 93005; 94760; 99291

== ENCOUNTER 2019-02-12 12:39 | Day surgery (SDC) | payer OTHER ==
[~2019-02-12 12:39] MED LIST changes: +MIDODRINE 5 MG TAB PO SCH; -MIDODRINE 5 MG TAB PO STA
[2019-02-12 12:58] VITALS: RESP 20; TEMP 97.5
[2019-02-12] MEDS: ALBUMIN HUMAN 25% 50 ML in EMPTY BAG 1 BAG IVPB SCH ×4 (13:27→15:06)
[2019-02-12 13:28] LABS: Calcium 8.2 mg/dL (8.4-10.2)
[2019-02-12 13:47] LABS: INR 1.3 (<1.2); Prothrombin Time 12.9 sec (9.0-12.0)
[2019-02-12 13:59] LABS: Anisocytosis Moderate; Basophils # (A) 0.1 k/uL (0-0.2); Basophils % (A) 1 %; Eosinophils # (A) 0.2 k/uL (0-0.7); Eosinophils % (A) 3 %; HCT 26.9 % (34.0-46.0); HGB 8.4 gm/dL (11.4-16.0); Hypochromasia Slight; Lymphocytes % (A) 18 %; MCH 27.8 pg (25.0-35.0); MCHC 31.2 g/dL (31.0-37.0); Mean Platelet Volume 8.2; Monocytes # (A) 0.4 k/uL (0-1.0); Monocytes % (A) 7 %; Neutrophils # (A) 4.2 k/uL (1.3-7.7); Neutrophils % (A) 71 %; Platelet Count 221 k/uL (150-450); RBC 3.03 m/uL (3.80-5.40); WBC 5.9 k/uL (3.8-10.6)
[2019-02-12 15:35] VITALS: BP 114/47; PULSE 71
--- NOTE | 2019-02-12 15:45 | US ---
EXAMINATION TYPE: US paracentesis abd w/image DATE OF EXAM: 02/12/2019 COMPARISON: NONE HISTORY: Ascites. PROCEDURE: Maximal barrier technique was utilized. The skin overlying a suitable pocket of fluid was localized with ultrasound and the overlying skin was prepped and draped. Ultrasound was utilized with sterile technique. Lidocaine was used for local anesthesia and a skin angelo made with a scalpel. Catheter was advanced under direct ultrasound guidance into a suitable pocket of fluid and approximately 8.7 liter s of serous fluid were removed. Catheter was withdrawn and hemostasis achieved. There is no immedia te complication; the patient is discharged in stable condition. IMPRESSION: STATUS POST ULTRASOUND GUIDED PARACENTESIS FOR PALLIATION OF ASCITES. THIS PROCEDURE WA S PERFORMED BY THE UNDERSIGNED.
== END 2019-02-12 15:40 | disposition home or self-care (01) ==
LOC: RADPROMAIN 12:39
DX: R18.8 Other ascites (principal)
CPT/HCPCS: 80048; 85025; 85610; 36415; 49083; P9047

== ENCOUNTER 2019-02-19 13:20 | Inpatient (IN) | payer OTHER ==
[2019-02-19] MEDS: ALBUMIN HUMAN 25% 50 ML in EMPTY BAG 1 BAG IVPB SCH ×3 (13:02→16:10)
[2019-02-19 13:12] LABS: Anisocytosis Slight; HCT 24.5 % (34.0-46.0); HGB 7.5 gm/dL (11.4-16.0); Hypochromasia Slight; MCH 27.5 pg (25.0-35.0); MCHC 30.5 g/dL (31.0-37.0); MCV 90.2 fL (80.0-100.0); Mean Platelet Volume 7.3; Platelet Count 200 k/uL (150-450); RBC 2.72 m/uL (3.80-5.40); RDW 19.6 % (11.5-15.5); WBC 13.3 k/uL (3.8-10.6)
[~2019-02-19 13:20] MED LIST changes: -MIDODRINE 5 MG TAB PO SCH; +MIDODRINE 5 MG TAB PO STA
[2019-02-19 13:22] LABS: INR 1.6 (<1.2); Prothrombin Time 15.7 sec (9.0-12.0)
[2019-02-19 13:24] LABS: Calcium 8.2 mg/dL (8.4-10.2)
[2019-02-19] MEDS ORDERED: SODIUM CHLORIDE 0.9% 1,000 ML IV ONE (13:33)
--- NOTE | 2019-02-19 14:10 | ED ---
General Adult HPI - General Chief complaint: Weakness Source: patient, RN/MD, RN notes reviewed Mode of arrival: ambulatory - History of Present Illness Initial comments: This is a 48-year-old female who presents emergency Department with a past medical history significant for hepatorenal syndrome. Patient has cirrhosis of the liver secondary to drinking. Patient comes in the hospital once a week to have a paracentesis and have 8-12 L removed. Patient came in today she was hypotensive so they sent to the emergency department. Patient was given some albumin and Then as well as Midodrine. Patient's only complaint is that she is very tired she denies any chest pain any shortness of breath any difficulty breathing. Patient denies any recent fever chills or cough. Patient denies any abdominal pain patient denies any nausea or vomiting. Patient denies diarrhea. Patient denies headache patient denies numbness weakness. Patient denies lightheadedness dizziness or near syncopal episode. - Related Data Home Medications Medication Instructions Recorded Confirmed Ferrous Sulfate [Feosol] 325 mg PO BID 02/07/19 02/19/19 Previous Rx's Medication Instructions Recorded Pantoprazole [Protonix] 40 mg PO AC-BRKFST #30 tablet. 01/03/19 ALPRAZolam [Xanax] 0.5 mg PO Q8HR PRN #21 tablet 02/06/19 Darbepoetin Sandor [Aranesp] 40 mcg SQ Q7D syringe 02/06/19 Furosemide [Lasix] 40 mg PO BID@0900,1600 tab 02/06/19 Gabapentin [Neurontin] 100 mg PO TID PRN #21 cap 02/06/19 Lactulose [Cephulac] 30 gm PO BID ml 02/06/19 Midodrine [ProAmatine] 10 mg PO AC-TID tab 02/06/19 Rifaximin [Xifaxan] 550 mg PO BID tablet 02/06/19 Spironolactone [Aldactone] 50 mg PO BID tab 02/06/19 Allergies Allergy/AdvReac Type Severity Reaction Status Date / Time adhesive tape Allergy Rash/Hives Verified 02/19/19 14:03 Review of Systems ROS Statement: Those systems with pertinent positive or pertinent negative responses have been documented in the HPI. ROS Other: All systems not noted in ROS Statement are negative. Past Medical History Past Medical History: GI Bleed, Liver Disease Additional Past Medical History / Comment(s): ascites,"hernia", gi bleed/anemia -required blood transfusions History of Any Multi-Drug Resistant Organisms: None Reported Past Surgical History: Bariatric Surgery, Section Additional Past Surgical History / Comment(s): gastric bypass in 2002, recurrent paracentesis,colonoscopy, egd w/apc/variceal banding/bx Past Anesthesia/Blood Transfusion Reactions: No Reported Reaction Additional Past Anesthesia/Blood Transfusion Reaction / Comment(s): blood transfusions Past Psychological History: Anxiety Smoking Status: Current every day smoker Past Alcohol Use History: Daily Past Drug Use History: None Reported - Past Family History Mother History Unknown: Yes Family Medical History: Congestive Heart Failure (CHF), COPD Father History Unknown: Yes Family Medical History: Diabetes Mellitus General Exam - General Exam Comments Initial Comments: GENERAL: Patient is well-developed and well-nourished. Patient is nontoxic and well- hydrated and is in mild distress. ENT: Neck is soft and supple. No significant lymphadenopathy is noted. Oropharynx is clear. Moist mucous membranes. Neck has full range of motion without eliciting any pain. EYES: The sclera were anicteric and conjunctiva were pink and moist. Extraocular movements were intact and pupils were equal round and reactive to light. Eyelids were unremarkable. PULMONARY: Unlabored respirations. Good breath sounds bilaterally. No audible rales rhonchi or wheezing was noted. CARDIOVASCULAR: There is a regular rate and rhythm without any murmurs gallops or rubs. ABDOMEN: Soft and nontender with normal bowel sounds. No palpable organomegaly was noted. There is no palpable pulsatile mass. SKIN: Patient has a moderate amount of ecchymosis on her extremities as well as face. NEUROLOGIC: Patient is alert and oriented x3. Cranial nerves II through XII are grossly intact. Motor and sensory are also intact. Normal speech, volume and content. Symmetrical smile. MUSCULOSKELETAL: Normal extremities with adequate strength and full range of motion LYMPHATICS: No significant lymphadenopathy is noted PSYCHIATRIC: Normal psychiatric evaluation. Course Vital Signs 02/19/19 02/19/19 02/19/19 12:58 12:59 13:28 Temperature 98.1 F Pulse Rate 67 Pulse Rate [ 68 Pulse Oximetery ] Respiratory 14 16 Rate Blood Pressure 82/43 Blood Pressure 68/44 70/36 [Right Arm] O2 Sat by Pulse 100 100 Oximetry 02/19/19 02/19/19 14:00 16:52 Temperature Pulse Rate 70 62 Pulse Rate [ Pulse Oximetery ] Respiratory 15 16 Rate Blood Pressure 85/40 72/25 Blood Pressure [Right Arm] O2 Sat by Pulse 100 98 Oximetry Medical Decision Making - Medical Decision Making EKG shows normal sinus rhythm at 67 bpm AK interval 258 QRSs 1:30 for QT intervals 460 QTC is 482. Patient's EKG shows no ST segment elevation or depression or T wave abnormalities are noted. Patient is a right bundle branch block I spoke with the patient about starting a central line she refused. I also spoke to the patient about CODE STATUS she said she did not want to be placed on a ventilator and she told me she did not want CPR performed. I did asked the nurse at this time to verify all that as well. I spoke with family at the bedside and they stated that the patient was noncompliant with her medications and the following medications from 2018 that she had not taken. I spoke to the patient again about CODE STATUS with the nurse present and she again refused intubation and refused a central line and refused CPR. Patient received 3 L of fluid well in the emergency department last blood pressure was a systolic blood pressure 95. Chest x-ray shows cardiomegaly I spoke with Dr. Briceño agreed to admit the patient admitted the patient. I spoke with Dr. Sosa as he agreed to admit the patient and the patient in the unit. - Lab Data Result diagrams: 02/19/19 12:45 02/19/19 12:45 Lab Results 02/19/19 02/19/19 02/19/19 Range/Units 12:45 12:45 12:45 WBC 13.3 H (3.8-10.6) k/uL RBC 2.72 L (3.80-5.40) m/uL Hgb 7.5 L (11.4-16.0) gm/dL Hct 24.5 L (34.0-46.0) % MCV 90.2 (80.0-100.0) fL MCH 27.5 (25.0-35.0) pg MCHC 30.5 L (31.0-37.0) g/dL RDW 19.6 H (11.5-15.5) % Plt Count 200 (150-450) k/uL Hypochromasia Slight Anisocytosis Slight PT 15.7 H (9.0-12.0) sec INR 1.6 H (<1.2) Sodium 127 L (137-145) mmol/L Potassium 5.0 (3.5-5.1) mmol/L Chloride 97 L (98-107) mmol/L Carbon Dioxide 19 L (22-30) mmol/L Anion Gap 11 mmol/L BUN 74 H (7-17) mg/dL Creatinine 2.88 H (0.52-1.04) mg/dL Est GFR (CKD-EPI)AfAm 21 (>60 ml/min/1.73 sqM) Est GFR (CKD-EPI)NonAf 18 (>60 ml/min/1.73 sqM) Glucose 101 H (74-99) mg/dL Plasma Lactic Acid Alex (0.7-2.0) mmol/L Calcium 8.2 L (8.4-10.2) mg/dL Magnesium (1.6-2.3) mg/dL Ammonia (<30) umol/L Troponin I (0.000-0.034) ng/mL Urine Color Urine Appearance (Clear) Urine pH (5.0-8.0) Ur Specific [place] (1.001-1.035) Urine Protein (Negative) Urine Glucose (UA) (Negative) Urine Ketones (Negative) Urine Blood (Negative) Urine Nitrite (Negative) Urine Bilirubin (Negative) Urine Urobilinogen (<2.0) mg/dL Ur Leukocyte Esterase (Negative) Urine RBC (0-5) /hpf Urine WBC (0-5) /hpf Urine WBC Clumps (None) /hpf Ur Squamous Epith Cells (0-4) /hpf Urine Bacteria (None) /hpf Hyaline Casts (0-2) /lpf Urine Mucus (None) /hpf Urine Yeast (Budding) (None) /hpf 02/19/19 02/19/19 02/19/19 Range/Units 14:10 14:10 14:51 WBC (3.8-10.6) k/uL RBC (3.80-5.40) m/uL Hgb (11.4-16.0) gm/dL Hct (34.0-46.0) % MCV (80.0-100.0) fL MCH (25.0-35.0) pg MCHC (31.0-37.0) g/dL RDW (11.5-15.5) % Plt Count (150-450) k/uL Hypochromasia Anisocytosis PT (9.0-12.0) sec INR (<1.2) Sodium (137-145) mmol/L Potassium (3.5-5.1) mmol/L Chloride (98-107) mmol/L Carbon Dioxide (22-30) mmol/L Anion Gap mmol/L BUN (7-17) mg/dL Creatinine (0.52-1.04) mg/dL Est GFR (CKD-EPI)AfAm (>60 ml/min/1.73 sqM) Est GFR (CKD-EPI)NonAf (>60 ml/min/1.73 sqM) Glucose (74-99) mg/dL Plasma Lactic Acid Alex 2.8 H* (0.7-2.0) mmol/L Calcium (8.4-10.2) mg/dL Magnesium 2.7 H (1.6-2.3) mg/dL Ammonia (<30) umol/L Troponin I 0.021 (0.000-0.034) ng/mL Urine Color Urine Appearance (Clear) Urine pH (5.0-8.0) Ur Specific [place] (1.001-1.035) Urine Protein (Negative) Urine Glucose (UA) (Negative) Urine Ketones (Negative) Urine Blood (Negative) Urine Nitrite (Negative) Urine Bilirubin (Negative) Urine Urobilinogen (<2.0) mg/dL Ur Leukocyte Esterase (Negative) Urine RBC (0-5) /hpf Urine WBC (0-5) /hpf Urine WBC Clumps (None) /hpf Ur Squamous Epith Cells (0-4) /hpf Urine Bacteria (None) /hpf Hyaline Casts (0-2) /lpf Urine Mucus (None) /hpf Urine Yeast (Budding) (None) /hpf 02/19/19 02/19/19 Range/Units 16:06 16:35 WBC (3.8-10.6) k/uL RBC (3.80-5.40) m/uL Hgb (11.4-16.0) gm/dL Hct (34.0-46.0) % MCV (80.0-100.0) fL MCH (25.0-35.0) pg MCHC (31.0-37.0) g/dL RDW (11.5-15.5) % Plt Count (150-450) k/uL Hypochromasia Anisocytosis PT (9.0-12.0) sec INR (<1.2) Sodium (137-145) mmol/L Potassium (3.5-5.1) mmol/L Chloride (98-107) mmol/L Carbon Dioxide (22-30) mmol/L Anion Gap mmol/L BUN (7-17) mg/dL Creatinine (0.52-1.04) mg/dL Est GFR (CKD-EPI)AfAm (>60 ml/min/1.73 sqM) Est GFR (CKD-EPI)NonAf (>60 ml/min/1.73 sqM) Glucose (74-99) mg/dL Plasma Lactic Acid Alex (0.7-2.0) mmol/L Calcium (8.4-10.2) mg/dL Magnesium (1.6-2.3) mg/dL Ammonia 86 H (<30) umol/L Troponin I (0.000-0.034) ng/mL Urine Color Dark Brown Urine Appearance Cloudy H (Clear) Urine pH 5.0 (5.0-8.0) Ur Specific [place] 1.020 (1.001-1.035) Urine Protein Trace H (Negative) Urine Glucose (UA) Negative (Negative) Urine Ketones Negative (Negative) Urine Blood Negative (Negative) Urine Nitrite Negative (Negative) Urine Bilirubin 1+ H (Negative) Urine Urobilinogen 3.0 (<2.0) mg/dL Ur Leukocyte Esterase Small H (Negative) Urine RBC 4 (0-5) /hpf Urine WBC 1 (0-5) /hpf Urine WBC Clumps Occasional H (None) /hpf Ur Squamous Epith Cells <1 (0-4) /hpf Urine Bacteria Moderate H (None) /hpf Hyaline Casts 4 H (0-2) /lpf Urine Mucus Rare H (None) /hpf Urine Yeast (Budding) Occasional H (None) /hpf Critical Care Time Critical Care Time: Yes Total Critical Care Time: 35 Disposition Clinical Impression: Hypotension, Generalized weakness, Hyponatremia, Renal insufficiency, Hyperammonemia Disposition: ADMITTED IP TO THIS HOSP Referrals: None,Stated [Primary Care Provider] - 1-2 days Time of Disposition: 17:57
[2019-02-19 16:46] LABS: Appearance,Urine Cloudy (Clear); Bacteria,Urine Moderate /hpf; Bilirubin,Urine 1+ (Negative); Blood,Urine Negative (Negative); Budding Yeast,Urine Occasional /hpf; Color,Urine Dark Brown; Glucose,Urine (UA) Negative (Negative); Hyaline Casts,Urine 4 /lpf (0-2); Ketones,Urine Negative (Negative); Leukocyte Esterase,Urine Small (Negative); Mucus,Urine Rare /hpf; Nitrite,Urine Negative (Negative); Protein,Urine Trace (Negative); RBC,Urine 4 /hpf (0-5); Squamous Epithelial Cell,Urine <1 /hpf (0-4); WBC,Urine 1 /hpf (0-5)
[2019-02-19] MEDS ORDERED: NALOXONE 0.4 MG/ML 1 ML VIAL IV PRN ×2 (18:00→21:45)
--- NOTE | 2019-02-19 18:11 | XR ---
EXAMINATION: XR chest 1V portable DATE AND TIME: 02/19/2019 5:24 PM CLINICAL INDICATION: PHH; Pain TECHNIQUE: Departmental protocol COMPARISON: 01/31/2019 FINDINGS: The lungs are negative as seen. The pleural spaces are negative. The cardiac silhouette is borderline enlarged. The remainder of the mediastinal silhouette is unremar kable. The skeletal structures and soft tissues are negative for acute findings. IMPRESSION: NO ACUTE PROCESS.
[2019-02-19] MEDS ORDERED: HYDROmorphone 0.5 MG/0.5 ML SYRINGE IVP STA (18:40)
[2019-02-19] MEDS: NOREPINEPHRINE 4 MG in SODIUM CHLORIDE 0.9% 250 ML IV ONE (19:46)
[2019-02-19 21:32] LABS: Glucose,Whole Blood 101 mg/dL (75-99)
[2019-02-19] MEDS: LACTULOSE 20 GM/30 ML CUP RECTAL SCH (23:00)
[2019-02-19] MEDS: LACTULOSE 20 GM/30 ML CUP PO SCH (23:30)
[2019-02-20] MEDS: LACTULOSE 20 GM/30 ML CUP RECTAL SCH ×2 (01:03→08:40)
[2019-02-20] MEDS: NOREPINEPHRINE 4 MG in SODIUM CHLORIDE 0.9% 250 ML IV ONE (03:04)
[2019-02-20] MEDS: LACTULOSE 20 GM/30 ML CUP PO SCH (05:01)
--- NOTE | 2019-02-20 05:59 | CONS ---
CONSULTATION PULMONARY/CRITICAL CARE CONSULTATION: This is a 48-year-old female well known to our service. She has a significant past medical history of end-stage liver disease from previous alcohol abuse and has a history of liver cirrhosis. The liver disease is secondary to drinking. The patient apparently does not drink currently. She comes into the hospital once a week for a large volume paracentesis. Typically 8-12 L are removed. She apparently came in today and was hypotensive, so they sent her to the emergency department. She was given some albumin and some midodrine. The patient is very lethargic and and sleepy. She is very confused and disoriented. She really is unable to give any history at this time. The patient apparently was relatively normal behaving this morning. More recently, she has become very confused and disoriented. She really cannot give me any additional history, although the ER doctor mentions that she was not having any chest pain or shortness of breath and was not having any abdominal discomfort. She apparently was also not having any nausea, vomiting or diarrhea. Again, I cannot get that history from her. I talked to the family member there about hospice and palliative care. They are in agreement. This is appropriate because she has end-stage liver disease. HOME MEDICATIONS: Include iron, Protonix, Xanax, Aranesp, Lasix, Neurontin, lactulose, Midodrine, Rifaximin, and Aldactone. ALLERGIES: ADHESIVE TAPE. PAST MEDICAL HISTORY: Medical history includes the end-stage liver disease with alcoholic cirrhosis and hepatorenal syndrome, severe ascites requiring weekly large volume paracentesis. She has also had GI bleeding in the past with anemia. She has had blood transfusions in the past. PAST SURGICAL HISTORY: Includes bariatric surgery and . The bariatric surgery was a gastric bypass in 2002. She has had colonoscopy, EGD and has had varicocele banding in the past. SOCIAL HISTORY: Smoking history is positive for ongoing tobacco use. It says here in the ER bigg that she is a daily drinker, although the family member in the emergency room said that she does not drink anymore. There is no apparent illicit drug use. FAMILY HISTORY: Positive for CHF and COPD as well as diabetes. REVIEW OF SYSTEMS: Cannot really be obtained. The patient is moaning. She is very lethargic and does not respond appropriately. She is calling out, but does not appear to be in any distress or any pain at this time. She seems very agitated and restless. PHYSICAL EXAMINATION: VITAL SIGNS: Current vital signs are reviewed. Her temperature is 98.1, heart rate is 60, respiratory rate 18, blood pressure 80/35 with a mean of 50. Room air saturation 99%. HEENT examination is grossly unremarkable. Mucous membranes are dry. NECK: Supple. Full range of motion. No adenopathy, thyromegaly or neck vein distention. CARDIOVASCULAR examination reveals regular rhythm and rate. Heart sounds are distant. Heart rate in the 70s. LUNGS: A few scattered rhonchi. No wheezes or crackles. Breath sounds equal. ABDOMEN is quite distended. There is a fluid wave. It does not appear to be tender on palpation. No masses noted. EXTREMITIES are intact. There is some edema. SKIN reveals multiple areas of ecchymoses. There is also some mild acrocyanosis of the fingers and toe tips. NEUROLOGIC examination could not be fully assessed. She seems to be very confused and disoriented and somewhat restless and agitated. LAB DATA: Reviewed. Her white count 13.3, hemoglobin 7.5, hematocrit 24.5, platelet count 300,000 PT/INR is 15.7 1.6. Sodium 127, potassium 5, chloride 97, CO2 19 anion gap is 11, BUN and creatinine were 74 and 2.88. Calcium 8.2, magnesium 2.7. Ammonia is 86. Her urine is dark brown and cloudy. There is trace protein. 1+ bilirubin. Small positive leukocyte esterase. There is occasional white blood cell clumps and 1 WBC. Urine bacteria is moderate. A chest x-ray was done. Shows no acute process. Medications are reviewed. She has got orders for Dilaudid, midodrine, Narcan, an IV of 0.9 at KVO and Levophed running through a peripheral IV at 0.07 mcg/kg per minute. The patient apparently refused a central line. She is a DNR. She does not want to be intubated. ASSESSMENT: 1. End-stage alcoholic liver cirrhosis with alcoholic liver disease and all the features of chronic alcoholic liver cirrhosis including coagulopathy and hyperammonemia. 2. Profound confusion, disorientation, agitation and restlessness, secondary to her alcoholic liver disease. 3. History of chronic anemia. 4. History of gastrointestinal bleed. 5. History of chronic liver disease. 6. History of anxiety. 7. History of hypotension, maintained on chronic midodrine therapy. 8. Previous history of blood transfusions for anemia. 9. Possible hepatorenal syndrome. 10.Chronic kidney disease. 11.Status post severe variceal bleeding with subsequent banding. 12.History of gastric bypass in 2002. PLAN: The patient's overall prognosis is very poor. I did talk to family members about palliative care consult. They agree. She has got end-stage liver disease. Additional recommendations and suggestions are forthcoming. Prognosis is poor. I have accepted the patient into the ICU. We will attempt more conservative measures at this time. No additional recommendations are made. MMODL / IJN: [id number] /
--- NOTE | 2019-02-20 06:03 | HP ---
HISTORY AND PHYSICAL DATE OF SERVICE: 02/19/2019 CHIEF COMPLAINT: Hypotension. HISTORY OF PRESENT ILLNESS: This 48-year-old woman with a past history of chronic liver disease, ascites, hernia, bariatric surgery, history of gastric bypass, history of anxiety, history of possible cirrhosis of liver in the outpatient setting was getting periodic paracentesis. The patient was suppose to have to L of fluid removed, but today the patient was found to be hypotensive. The blood pressure was around 60 to 70 and patient was sent to the ER. Patient was given 2 units of albumin, 10 of midodrine and 2 L IV fluids. Subsequently, because of the persistent hypotension, Levophed was started currently running at 11 mcg/minute and the patient was transferred to ICU. Dr. Kimball was consulted. Currently the patient is also confused. Serum ammonia was 86. Sodium was 127. There is no history of fever, rigors or chills or trauma, but however, a detailed history cannot be taken from the patient because of the patient's change in mental status. Most of the history is taken from my discussion with staff and review of the chart at this time. PAST MEDICAL HISTORY: Cirrhosis of the liver with repeat paracentesis, liver disease, history of GI bleed, bariatric surgery, anxiety. MEDICATIONS: The home medications are: 1. Aldactone 50 mg p.o. b.i.d. 2. Xifaxan 550 mg p.o. b.i.d. 3. Protonix 40 mg with breakfast. 4. ProAmatine 10 mg p.o. a.c. t.i.d. 5. Cephulac 30 p.o. b.i.d. 6. Neurontin 100 mg t.i.d. p.r.n. 7. Lasix 40 mg p.o. b.i.d. 8. Iron sulfate 325 mg p.o. b.i.d. 9. Aranesp 40 mcg q.7 days. 10.Xanax 0.5 q.8 p.r.n. ALLERGIES: ADHESIVE TAPES. FAMILY HISTORY, SOCIAL HISTORY, REVIEW OF SYSTEMS: Could not be taken because of change in mental status. PHYSICAL EXAMINATION: Patient is conscious, confused. Pulse 73, blood pressure 91/41, respiration 10, temperature is normal, pulse ox 100% on oxygen. HEENT: Conjunctivae icteric. Oral mucosa moist. NECK: No jugular venous distention. No carotid bruit. No lymph node enlargement. CARDIOVASCULAR: S1, S2 muffled. No S3, no S4. RESPIRATORY: Breath sounds diminished at the bases. A few scattered rhonchi and crackles. ABDOMEN: Soft. Mild diffuse distention present. No guarding. No rigidity. No mass palpable. Bowel sounds diminished. No ascites present. LEGS: Bilateral leg edema. NERVOUS SYSTEM: Patient unable to cooperate with the exam, diffusely weak. LYMPHATICS: No lymphadenopathy of the neck, axillae or groin. SKIN: No ulcer, rash or bleeding. JOINTS: No active deforming arthropathy. LABS: Labs are at this time, ammonia is 86. Otherwise, lactic acid 1.4. UA noted. Glucose is 110. WBC 13.3 and hemoglobin 7.5. Sodium is 127. ASSESSMENT: 1. Acute on chronic hepatic encephalopathy. 2. Rule out sepsis with spontaneous bacterial peritonitis. 3. Change in mental status secondary to hepatic encephalopathy. 4. Hypotension of undetermined etiology. 5. Increased WBC. 6. Anemia, normocytic anemia of chronic disease. 7. Coagulopathy secondary to chronic liver disease. 8. Hyponatremia. 9. Increased creatinine with possible acute renal failure secondary to prerenal acute tubular necrosis. 10.Hyperammonemia secondary to hepatic encephalopathy. 11.History of gastrointestinal bleed. 12.History of recurrent abdominal paracentesis. 13.History of bariatric surgery and a gastric bypass. 14.History of anxiety. 15.History of nicotine dependence continued ongoing. 16.History of alcohol continued ongoing. 17.NO CODE, NO CPR, NO VENT. RECOMMENDATIONS AND DISCUSSION: In this 48-year-old woman who presented with multiple complex medical issues, will monitor the patient closely. Continue the current medications, continue with cautious IV hydration as well as Levophed drip at this time. Continue to monitor, midodrine has been initiated. Otherwise, will closely monitor, follow with Gastroenterology and as well as Pulmonary Critical Care. I would recommend empiric antibiotics and follow the cultures also because of concerns for spontaneous bacterial peritonitis. Repeat labs in the morning. Otherwise, resume the home medications. Prognosis extremely guarded because of multiple complex medical issues. The patient is not stable currently for any paracentesis, but however, I would recommend lactulose to ensure 2 to 3 bowel movements per day. Further recommendations to follow. MMODL / IJN: [id number] / AGUEDA
[2019-02-20 06:05] LABS: Anisocytosis Moderate; Basophils # (A) 0.1 k/uL (0-0.2); Basophils % (A) 1 %; Eosinophils # (A) 0.3 k/uL (0-0.7); Eosinophils % (A) 2 %; HCT 25.2 % (34.0-46.0); HGB 8.1 gm/dL (11.4-16.0); Hypochromasia Slight; Lymphocytes # (A) 1.9 k/uL (1.0-4.8); Lymphocytes % (A) 14 %; MCHC 32.1 g/dL (31.0-37.0); MCV 90.3 fL (80.0-100.0); Macrocytosis Slight; Mean Platelet Volume 7.4; Monocytes # (A) 0.9 k/uL (0-1.0); Monocytes % (A) 6 %; Neutrophils # (A) 10.7 k/uL (1.3-7.7); Neutrophils % (A) 77 %; Platelet Count 231 k/uL (150-450); RBC 2.79 m/uL (3.80-5.40); RDW 20.7 % (11.5-15.5); WBC 13.9 k/uL (3.8-10.6)
[2019-02-20 06:07] LABS: INR 1.6 (<1.2)
[2019-02-20 06:20] LABS: Albumin 2.7 g/dL (3.5-5.0); Calcium 8.1 mg/dL (8.4-10.2); Magnesium 2.5 mg/dL (1.6-2.3); Phosphorus 5.1 mg/dL (2.5-4.5); Potassium 4.9 mmol/L (3.5-5.1); Total Bilirubin 2.4 mg/dL (0.2-1.3); Total Protein 5.6 g/dL (6.3-8.2)
[2019-02-20] MEDS: MIDODRINE 5 MG TAB PO SCH ×2 (08:40→11:45)
[2019-02-20] MEDS: NOREPINEPHRINE 4 MG in SODIUM CHLORIDE 0.9% 250 ML IV SCH ×3 (08:44→13:31)
--- NOTE | 2019-02-20 08:48 | PN ---
PROGRESS NOTE DATE OF SERVICE: 02/20/2019 This is a 48-year-old female well known to our service. She has a significant past medical history of end-stage liver disease from alcohol abuse and history of liver cirrhosis. The patient apparently is still drinking and smoking cigarettes. The patient came to the hospital apparently for a large volume paracentesis which she typically does weekly. Usually 8 to 12 L are removed. She was sent into the emergency room because she became hypotensive after the procedure. She was given some albumin and some midodrine. Despite that, she remained hypotensive and the ER doctor started her on some Levophed. I saw her in the emergency room last night. The patient was very confused and disoriented. Very agitated and restless. Her ammonia level was high. I did have some family discussions. A hospice referral was made. The patient does have end-stage disease. The patient's family is ready to move on to comfort measures I believe. Anyway, the patient was about the same last night she was in the emergency room. She is not receiving any supplemental oxygen. The norepinephrine has been increased up to 17 mcg/minute. She is getting a 0.9 IV at 20 mL an hour. She has made no urine over the past number of hours. PHYSICAL EXAMINATION: VITAL SIGNS: Current vital signs are reviewed. Temperature 98.3, heart rate 89, respiratory rate 16, blood pressure 90/41, mean 57, saturations are 96% on room air. GENERAL: Appears very agitated, confused, disoriented, and restless. HEENT: Examination is grossly unremarkable. Mucous membranes are dry. There are some areas of ecchymoses noted on the facial areas. NECK: Supple. Full range of motion. No adenopathy, thyromegaly or neck vein distention. CARDIOVASCULAR: Examination reveals distant heart sounds. Heart rate about 90 beats per minute. It is regular. No murmur noted. LUNGS: Reveal a few scattered rhonchi. No wheezes or crackles. ABDOMEN: Is very distended. There is a fluid wave. No tenderness on palpation. No bowel sounds noted. EXTREMITIES: Reveal edema. It is about 1+. There is some minimal acrocyanosis noted. SKIN: Otherwise reveals areas of ecchymoses. NEUROLOGIC: Examination is very difficult to assess. She is very confused and disoriented and appears about the way she was last night in the emergency room. LABORATORY DATA: Laboratory data includes a white count of 13.9, hemoglobin 8.1, hematocrit 25.2, platelet count 231,000. PT/INR were 16 and 1.6. Sodium 130, potassium 4.9, chloride 103, CO2 of 18. Anion gap is 9. BUN and creatinine were 71 and 2.77. The rest of the labs are reviewed including a bilirubin of 2.4, albumin is 2.7, and ammonia level is 67. Urine is noted yesterday. X-RAY: No chest x-ray today. MEDICATIONS: Medications are reviewed. She is on Rocephin, Dilaudid, lactulose, midodrine, Narcan, norepinephrine, Protonix, rifaximin, and saline IV. ASSESSMENT: 1. End-stage alcoholic liver cirrhosis with alcoholic liver disease and many features of chronic alcoholic liver cirrhosis including coagulopathy and hyperammonemia. 2. Profound confusion, disorientation, agitation and restlessness secondary to alcoholic liver disease and elevated ammonia levels. 3. History of chronic anemia. 4. History of gastrointestinal bleed. 5. History of chronic liver disease. 6. History of anxiety. 7. History of hypotension, chronically, maintained on midodrine therapy. 8. Previous history of blood transfusions for anemia. 9. Probable hepatorenal syndrome. 10.Chronic kidney disease. 11.Status post banding for variceal bleeding. 12.History of gastric bypass in 2002. PLAN: Overall, the patient's prognosis is very poor. The patient appears to be very confused and disoriented within large part related to her hepatic coma. The patient has been referred to hospice as per family members. I will talk to the family today about comfort measures. Additional recommendations and suggestions are forthcoming. I think we should be very conservative with her management. Hopefully we will be able to get her off the norepinephrine. No additional recommendations are made. Again prognosis is very poor. CRITICAL CARE TIME: 32 minutes. BILLY / AYLAN: [id number] /
[2019-02-20] MEDS ORDERED: RIFAXIMIN 550 MG TABLET PO SCH (09:00)
[2019-02-20] MEDS ORDERED: PANTOPRAZOLE 40 MG/10 ML VIAL IVP SCH (09:00)
[2019-02-20 09:42] VITALS: BMI 33.8
--- NOTE | 2019-02-20 15:05 | PN ---
PROGRESS NOTE DATE OF SERVICE: 02/20/2019 This 48-year-old woman was admitted with hypotension, also significant chronic liver disease. The patient had change in mental status indicated by hepatic encephalopathy. Patient is on Levophed drip at this time. The patient was seen by multiple consultations, also possibly hepatorenal syndrome as well. The serum ammonia is [address] Kimball has seen the patient and recommended hospice or palliative care. No chest pain. The patient is confused at this time. REVIEW OF SYSTEMS: Could not be taken because of the confusion. CURRENT MEDICATIONS: Reviewed and include: 1. Rocephin 1 g daily. 2. Cephulac 20 g t.i.d. 3. ProAmatine 10 mg t.i.d. 4. Narcan p.r.n. 5. Levophed drip. 6. Protonix. 7. Xifaxan. PHYSICAL EXAM: Patient is conscious, confused. Pulse 96, blood pressure 88/49, respiration 21, temp is normal, pulse ox 97% on room air. HEENT: Oral mucosa moist. NECK: No jugular venous distention. No carotid bruit. No lymph nodes enlargement. CARDIOVASCULAR: S1, S2, muffled. No S3, no S4. RESPIRATORY: Breath sounds diminished at the bases, a few scattered rhonchi. ABDOMEN: Soft, obese, ascites present. LEGS: Bilateral leg edema. NERVOUS SYSTEM: Diffusely weak. LABS: WBC 13.9, hemoglobin is 8.1, the INR is 1.6, sodium 130, the total bilirubin is 2.5. ASSESSMENT: 1. Acute on chronic hepatic encephalopathy with change in mental status. 2. Possible sepsis with spontaneous bacterial peritonitis. 3. Change in mental status secondary to metabolic hepatic encephalopathy. 4. Hypotension of undetermined etiology possibly multifactorial. 5. Possibly hepatorenal syndrome. 6. Increased WBC. 7. Anemia, normocytic anemia of chronic disease. 8. Mild coagulopathy secondary to chronic liver disease. 9. Hyponatremia. 10.Increased creatinine with possible acute renal failure secondary to prerenal acute tubular necrosis. 11.Hyperammonemia secondary to hepatic encephalopathy. 12.History of gastrointestinal bleed. 13.History of recurrent abdominal paracentesis. 14.History of bariatric surgery and gastric bypass. 15.History of anxiety. 16.History of nicotine dependence, continued ongoing. 17.History of alcohol, continued ongoing. 18.NO CODE, NO CARDIOPULMONARY RESUSCITATION, NO VENTILATOR. RECOMMENDATION: Recommend to continue current management and symptomatic treatment. Currently, the patient is on empiric antibiotics as well as Levophed drip as mentioned earlier. Cultures, IV fluids. I would also talk with the family regarding the hospice or palliative care. Closely follow with Dr. Kimball. Prognosis extremely guarded because of multiple complex medical issues. See further orders. Further recommendations to follow. MMODL / IJN: [id number] /
[2019-02-20] MEDS ORDERED: HYDROmorphone 0.5 MG/0.5 ML SYRINGE IVP PRN (15:14)
[2019-02-20 16:14] VITALS: BP 76/64; PULSE 71; RESP 18; TEMP 97.9
== END 2019-02-20 16:23 | disposition hospice, inpatient (51) | DRG 441 ==
LOC: EC 13:20 → 2SICU 18:00
PROVIDERS: ADMIT Internal Medicine; ATTEND Internal Medicine
DX: K72.00 Acute and subacute hepatic failure without coma (principal); K65.2 Spontaneous bacterial peritonitis; K76.7 Hepatorenal syndrome; N17.0 Acute kidney failure with tubular necrosis; A41.9 Sepsis, unspecified organism; D68.4 Acquired coagulation factor deficiency; E87.1 Hypo-osmolality and hyponatremia; D63.8 Anemia in other chronic diseases classified elsewhere; F17.210 Nicotine dependence, cigarettes, uncomplicated; I45.10 Unspecified right bundle-branch block; I95.81 Postprocedural hypotension; K70.31 Alcoholic cirrhosis of liver with ascites; K72.10 Chronic hepatic failure without coma; N18.9 Chronic kidney disease, unspecified; Z51.5 Encounter for palliative care; Z82.49 Family history of ischemic heart disease and other diseases of the circulatory system; Z82.5 Family history of asthma and other chronic lower respiratory diseases; Z83.3 Family history of diabetes mellitus; T50.906A Underdosing of unspecified drugs, medicaments and biological substances, initial encounter; Z91.128 Patient's intentional underdosing of medication regimen for other reason; Z98.84 Bariatric surgery status; R45.1 Restlessness and agitation; Z87.19 Personal history of other diseases of the digestive system; Z66 Do not resuscitate; F41.9 Anxiety disorder, unspecified
CPT/HCPCS: 36415; 51702; 71045; 80048; 80053; 81001; 82140; 83605; 83735; 84100; 84484; 85025; 85027; 85610; 87040; 87086; 93005; 96361; 96365; 96366; 96367; 96375; 99291

== ENCOUNTER 2019-02-20 15:39 | Inpatient (IN) | payer MEDICAID ==
[2019-02-20] MEDS ORDERED: LORazepam 2 MG/ML INJ IV PRN (15:41)
[2019-02-20] MEDS ORDERED: ONDANSETRON 4 MG/2 ML VIAL IVP PRN (15:41)
[2019-02-20] MEDS ORDERED: ATROPINE OPHTH SOLN 1% 5ML BTL SUBLINGUAL PRN (15:41)
[2019-02-20] MEDS ORDERED: SCOPOLAMINE 1.5MG/72HR PATCH TRANSDERM PRN (15:41)
[2019-02-20] MEDS ORDERED: BISACODYL 10 MG SUPP RECTAL PRN (15:48)
[2019-02-20] MEDS: MORPHINE SULFATE (100 MG/2 ML) 100 MG in SODIUM CHLORIDE 0.9% 100 ML IV SCH (16:54)
[2019-02-21] MEDS: MORPHINE SULFATE (100 MG/2 ML) 100 MG in SODIUM CHLORIDE 0.9% 100 ML IV SCH ×3 (02:24→20:21)
[2019-02-21 06:21] VITALS: RESP 8
--- NOTE | 2019-02-21 13:57 | PN ---
PROGRESS NOTE DATE OF SERVICE: 02/21/2019 This is a 48-year-old woman who was admitted with change in mental status, hepatic encephalopathy and as well as severe hypertension is on hospice at this time. The patient will be closely monitored. The patient has significant hypotension. The patient is unresponsive. PHYSICAL EXAM: Pulse 89. The pulse ox 93% on room air. HEENT: Oral mucosa moist. NECK: No jugular venous distention. No lymph node enlargement. CARDIOVASCULAR SYSTEM: S1, S2, muffled. RESPIRATION: Breath sounds diminished at the bases, a few scattered rhonchi. ABDOMEN: Soft, obese, ascites. LEGS: No edema, no swelling. NERVOUS SYSTEM: Unresponsive. LABS: Reviewed. ASSESSMENT: 1. Acute on chronic hepatic encephalopathy with change in mental status. 2. Possible sepsis with spontaneous bacterial peritonitis and hypotension with severe sepsis. 3. Change in mental status, possibly secondary to metabolic encephalopathy. 4. Hypotension, undetermined etiology, possible sepsis multifactorial. 5. Possible hepatorenal syndrome. 6. Increased WBC. 7. Anemia, normocytic anemia of chronic disease. 8. Mild coagulopathy secondary to chronic liver disease. 9. Hyponatremia. 10.Increased creatinine with possible acute renal failure possibly secondary to prerenal acute tubular necrosis. 11.Hyperammonemia secondary to hepatic encephalopathy. 12.History of gastrointestinal bleed. 13.History of recurrent abdominal paracentesis. 14.History of bariatric surgery and gastric bypass. 15.History of anxiety. 16.History nicotine dependence, continued ongoing. 17.History of alcohol, continued ongoing. 18.NO CODE, NO CPR, NO VENT. RECOMMENDATION: Recommend to continue current management and continue symptomatic treatment. Otherwise, continue with comfort measures. We will continue with the rest of medications. Prognosis guarded. Discussed with the friend at the bedside. Further recommendations to follow. MMODL / IJN: [id number] /
[2019-02-22] MEDS: MORPHINE SULFATE (100 MG/2 ML) 100 MG in SODIUM CHLORIDE 0.9% 100 ML IV SCH (04:23)
[2019-02-22 07:00] VITALS: PULSE 96
--- NOTE | 2019-02-22 15:14 | DS ---
DISCHARGE SUMMARY PRELIMINARY CAUSE OF : Hepatic encephalopathy with cirrhosis liver with chronic liver disease. OTHER DIAGNOSES: 1. Acute on chronic hepatic encephalopathy, change in mental status. 2. Possible sepsis with spontaneous bacterial peritonitis with hypotension, severe sepsis. 3. Change in mental status, possibly secondary to hepatic metabolic encephalopathy. 4. Hypotension secondary to sepsis, multifactorial. 5. Possible hepatorenal syndrome. 6. Increased WBC. 7. Anemia, normocytic anemia of chronic disease. 8. Mild coagulopathy secondary to chronic liver disease. 9. Hyponatremia. 10.Increased creatinine with possible acute renal failure, possibly secondary to prerenal acute tubular necrosis. 11.Hyperammonemia secondary to hepatic encephalopathy. 12.History of gastrointestinal bleed. 13.History of recurrent abdominal paracentesis. 14.History of bariatric surgery with gastric bypass. 15.History of anxiety. 16.History of nicotine dependence, continued ongoing. 17.History of alcohol, continued ongoing. 18.CODE, NO CPR, NO VENT. HISTORY OF PRESENT ILLNESS: This is a 48-year-old woman who presented with multiple medical problems, was admitted with acute on chronic hepatic encephalopathy and multiple other complex medical issues including sepsis. Patient was monitored in ICU. Patient treated with antibiotics and multiple pressor support. The patient's condition did not improve and case was discussed at length with the family on multiple occasions and hospice was ordered and continued because of the extremely grave prognosis. Patient had multiple consultants including Dr. Kimball. Please refer Dr. Kimball's notes for further information. The patient ultimately succumbed to her above mentioned illnesses. The prognosis remained extremely guarded throughout the hospital as mentioned, discussed with the family on multiple occasions. Please refer to multiple notes and progress notes, staff notes for further details. MMODL / IJN: [id number] /
== END 2019-02-22 17:00 | disposition expired | DRG 871 ==
LOC: 2SICU 16:47
PROVIDERS: ADMIT Hospitalist; ATTEND Hospitalist
DX: A41.9 Sepsis, unspecified organism (principal); K65.2 Spontaneous bacterial peritonitis; K72.00 Acute and subacute hepatic failure without coma; K76.7 Hepatorenal syndrome; N17.0 Acute kidney failure with tubular necrosis; E87.1 Hypo-osmolality and hyponatremia; D68.9 Coagulation defect, unspecified; D63.8 Anemia in other chronic diseases classified elsewhere; I10 Essential (primary) hypertension; K74.60 Unspecified cirrhosis of liver; R65.20 Severe sepsis without septic shock; I12.9 Hypertensive chronic kidney disease with stage 1 through stage 4 chronic kidney disease, or unspecified chronic kidney disease; N18.3 Chronic kidney disease, stage 3 (moderate); I95.9 Hypotension, unspecified; F41.9 Anxiety disorder, unspecified; Z51.5 Encounter for palliative care; Z87.891 Personal history of nicotine dependence; Z98.84 Bariatric surgery status; Z87.19 Personal history of other diseases of the digestive system; Z86.19 Personal history of other infectious and parasitic diseases; Z98.891 History of uterine scar from previous surgery; Z98.890 Other specified postprocedural states; Z88.9 Allergy status to unspecified drugs, medicaments and biological substances; Z82.49 Family history of ischemic heart disease and other diseases of the circulatory system